=== PATIENT | male | born 1945 | race Caucasian/White ===

== ENCOUNTER → 2016-05-01 | Outpatient (CLI) | payer MEDICARE, BC ==
--- NOTE | 2016-05-02 17:49 | XR ---
EXAMINATION TYPE: XR chest 2V DATE OF EXAM: 05/01/2016 10:15 AM COMPARISON: 06/17/2015 HISTORY: 71-year-old male bronchopneumonia, cough shortness of breath and dyspnea TECHNIQUE: Frontal and lateral views FINDINGS: Heart is normal size. There is central peribronchial cuffing and some patchy medial bibasilar opaciti es. There is a moderate-sized rounded retrocardiac density. No pleural effusion. IMPRESSION: 1. Some central peribronchial cuffing could represent bronchitis or chronic asthma. 2. Patchy medial bibasilar densities suggest atelectasis or infiltrates. Follow-up can be considered. 3. Suspect a moderate-sized hiatal hernia.
== END | disposition home or self-care (01) ==
LOC: RADXRYALE 10:00
PROVIDERS: ATTEND Physician Assistant Medical
DX: J98.09 Other diseases of bronchus, not elsewhere classified (principal); J98.4 Other disorders of lung
CPT/HCPCS: 71020

== ENCOUNTER → 2016-07-13 | Outpatient (CLI) | payer MEDICARE, BC ==
[2016-07-13 10:17] LABS: Basophils % (A) 0 %; CH 31.7; CHCM 33.2; Eosinophils # (A) 0.1 k/uL (0-0.7); Eosinophils % (A) 1 %; HCT 41.2 % (39.0-53.0); HDW 2.58; HGB 14.3 gm/dL (13.0-17.5); Luc # (Auto) 0.21; Luc % (Auto) 3; Lymphocytes # (A) 2.2 k/uL (1.0-4.8); Lymphocytes % (A) 31 %; MCH 33.4 pg (25.0-35.0); MCHC 34.8 g/dL (31.0-37.0); MCV 96.2 fL (80.0-100.0); Mean Platelet Volume 7.1; Monocytes # (A) 0.6 k/uL (0-1.0); Monocytes % (A) 9 %; Neutrophils # (A) 3.9 k/uL (1.3-7.7); Neutrophils % (A) 56 %; RBC 4.28 m/uL (4.30-5.90); RDW 14.2 % (11.5-15.5); WBC (Perox) 7.37
[2016-07-13 10:34] LABS: INR 2.1 (<1.1); Prothrombin Time 20.3 sec (9.0-12.0)
[2016-07-13 10:51] LABS: ALT 32 U/L (21-72); AST 24 U/L (17-59); Alkaline Phosphatase 63 U/L (38-126); Anion Gap 11 mmol/L; Blood Urea Nitrogen 15 mg/dL (9-20); Calcium 9.5 mg/dL (8.4-10.2); Carbon Dioxide 32 mmol/L (22-30); Chloride 99 mmol/L (98-107); Cholesterol 131 mg/dL (<200); Creatine Kinase 59 U/L (55-170); Glucose 96 mg/dL (74-99); HDL Cholesterol 63 mg/dL (40-60); Magnesium 1.7 mg/dL (1.6-2.3); Non-African American GFR(MDRD) >60 (>60 ml/min/1.73 sqM); Potassium 4.4 mmol/L (3.5-5.1); Sodium 142 mmol/L (137-145); Total Bilirubin 0.8 mg/dL (0.2-1.3); Total Protein 6.8 g/dL (6.3-8.2); Triglycerides 99 mg/dL (<150)
== END | disposition home or self-care (01) ==
LOC: LABWHC1 09:28
PROVIDERS: ATTEND Physician Assistant Medical
DX: C61 Malignant neoplasm of prostate (principal); E78.2 Mixed hyperlipidemia; E55.9 Vitamin D deficiency, unspecified; K21.9 Gastro-esophageal reflux disease without esophagitis; I48.2 Chronic atrial fibrillation; I10 Essential (primary) hypertension
CPT/HCPCS: 36415; 80053; 80061; 82306; 82550; 83735; 84153; 85025; 85610

== ENCOUNTER 2016-08-07 15:38 | Inpatient (IN) | payer MEDICARE, BC ==
[2016-08-07] MEDS ORDERED: SODIUM CHLORIDE 0.9% 1,000 ML IV STA ×2 (15:50)
[2016-08-07] MEDS ORDERED: SODIUM CHLORIDE 0.9% 500 ML IV STA (15:50)
[2016-08-07] MEDS ORDERED: LEVOFLOXACIN 750MG-D5W PMX 750 MG in DEXTROSE/WATER 1 150ML.BAG IVPB STA (15:50)
[2016-08-07] MEDS ORDERED: methylPREDNISolone SOD SUCCI 125 MG/2 ML VIAL IV STA (15:50)
[2016-08-07] MEDS ORDERED: IBUPROFEN 800 MG TAB PO STA (16:19)
[2016-08-07] MEDS ORDERED: ACETAMINOPHEN TAB 500 MG TAB PO STA (16:19)
--- NOTE | 2016-08-07 16:21 | ED ---
General Adult HPI - General Chief complaint: Shortness of Breath Stated complaint: SOB-sent by Time Seen by Provider: 08/07/16 15:49 Source: patient, RN notes reviewed, old records reviewed Mode of arrival: wheelchair Limitations: no limitations - History of Present Illness Initial comments: This this is a 71-year-old male to the ER for evaluation patient's presents here for evaluation and reassurance with cough and congestion, 3 weeks of increased coughing intervention. Patient's also COPD with an x-ray history of smoking. Patient's noticed fever for the last 3 days and worsening shortness of breath. No chest pain. No travel history no sick contacts, patient has not continued to smoke continued to smoke - Related Data Home Medications Medication Instructions Recorded Confirmed Montelukast [Singulair] 10 mg PO HS 09/09/13 08/07/16 Tamsulosin [Flomax] 0.4 mg PO QAM 09/09/13 08/07/16 Furosemide 40 mg PO W/SUPPER 04/03/14 08/07/16 Spironolactone 25 mg PO BID 04/03/14 08/07/16 Cholecalciferol [Vitamin D3] 2,000 unit PO BID 06/09/15 08/07/16 cycloSPORINE [Restasis] 1 drop BOTH EYES BID 06/09/15 08/07/16 Albuterol Nebulized [Ventolin 2.5 mg INHALATION RT-Q6H PRN 08/07/16 08/07/16 Nebulized] Ascorbic Acid [Vitamin C] 1,000 mg PO DAILY 08/07/16 08/07/16 Atorvastatin Calcium [Lipitor] 40 mg PO HS 08/07/16 08/07/16 Budesonide-Formot 160-4.5 Mcg 2 puff INHALATION RT-BID 08/07/16 08/07/16 [Symbicort 160-4.5 Mcg Inhaler] Cyanocobalamin (Vitamin B-12) 3,000 mcg PO BID 08/07/16 08/07/16 [Vitamin B-12] Docusate [Colace] 100 mg PO TID 08/07/16 08/07/16 Fluticasone Nasal Rescue [Flonase 2 spr EA NOSTRIL BID 08/07/16 08/07/16 Nasal Rescue] Furosemide [Lasix] 80 mg PO QAM 08/07/16 08/07/16 Loratadine [Claritin] 10 mg PO DAILY 08/07/16 08/07/16 Magnesium Oxide [Mag-Ox] 250 mg PO BID 08/07/16 08/07/16 Metoprolol Tartrate [Lopressor] 25 mg PO BID 08/07/16 08/07/16 Pantoprazole Sodium [Protonix] 40 mg PO BID 08/07/16 08/07/16 Potassium Chloride ER [K-Dur 20] 20 meq PO BID 08/07/16 08/07/16 Tiotropium 18 Mcg/Puff [Spiriva] 1 cap INHALATION RT-HS 08/07/16 08/07/16 Warfarin [Coumadin] 2.5 mg PO SUTH 08/07/16 08/07/16 Warfarin [Coumadin] 3.75 mg PO MOTUWEFRSA 08/07/16 08/07/16 Allergies Allergy/AdvReac Type Severity Reaction Status Date / Time Zfvnuyb-Bof-Nvj Reductase Allergy Mild Rash/Hives Verified 08/07/16 16:28 Inhibitor Review of Systems ROS Statement: Those systems with pertinent positive or pertinent negative responses have been documented in the HPI. ROS Other: All systems not noted in ROS Statement are negative. Past Medical History Past Medical History: Cancer, COPD, GERD/Reflux, Hyperlipidemia, Hypertension, Osteoarthritis (OA), Prostate Disorder Additional Past Medical History / Comment(s): Prostate cancer, nephrolithiasis, COPD, obesity, GE reflux, hypertension, hyperlipidemia, osteoarthritis, atrial fibrillation with previous cardioversion, BPH, cardiomyopathy with an ejection fraction of around 35%, cor pulmonale, peripheral vascular disease with previous vascular intervention the lower extremities, carotid artery disease/ stenosis History of Any Multi-Drug Resistant Organisms: None Reported Past Surgical History: Bladder Surgery, Hernia Repair, Tonsillectomy Additional Past Surgical History / Comment(s): CARDIOVERSION,MUKESH FEMORAL BYPASS SURGERY 06/2011, MUKESH. ING. HERNIA,UMBILICAL HERNIA REPAIR 06/2011, PILONIDAL CYSTECTOMY,. ARCH/AORTOGRAM, CYSTECTOMY ALONG WITH KIDNEY STONE REMOVAL(HX STONES 3 DIFF. TIMES),LT CAROTID ENDARTECTOMY Past Anesthesia/Blood Transfusion Reactions: No Reported Reaction Past Psychological History: No Psychological Hx Reported Smoking Status: Former smoker Past Alcohol Use History: Daily Additional Past Alcohol Use History / Comment(s): QUIT SMOKING 1993, SMOKED SINCE AGE 17 Past Drug Use History: None Reported - Past Family History Mother Additional Family Medical History / Comment(s): UNKNOWN HX General Exam Limitations: no limitations General appearance: alert, in no apparent distress Head exam: Present: atraumatic, normocephalic, normal inspection Eye exam: Present: normal appearance, PERRL, EOMI. Absent: scleral icterus, conjunctival injection, periorbital swelling ENT exam: Present: normal exam, mucous membranes moist Neck exam: Present: normal inspection. Absent: tenderness, meningismus, lymphadenopathy Respiratory exam: Present: normal lung sounds bilaterally. Absent: respiratory distress, wheezes, rales, rhonchi, stridor Cardiovascular Exam: Present: regular rate, normal rhythm, normal heart sounds. Absent: systolic murmur, diastolic murmur, rubs, gallop, clicks GI/Abdominal exam: Present: soft, normal bowel sounds. Absent: distended, tenderness, guarding, rebound, rigid Extremities exam: Present: normal inspection, full ROM, normal capillary refill. Absent: tenderness, pedal edema, joint swelling, calf tenderness Back exam: Present: normal inspection Neurological exam: Present: alert, oriented X3, CN II-XII intact Psychiatric exam: Present: normal affect, normal mood Skin exam: Present: warm, dry, intact, normal color. Absent: rash Course Vital Signs 08/07/16 08/07/16 08/07/16 15:43 16:18 18:06 Temperature 100.1 F H 99.2 F 101.0 F H Pulse Rate 88 94 87 Respiratory 16 18 16 Rate Blood Pressure 120/75 135/78 101/55 O2 Sat by Pulse 92 L 95 92 L Oximetry - Reevaluation(s) Reevaluation #1: 08/07/16 18:32 Patient's shortness of breath remains despite prolonged breathing treatment EKG Findings - EKG Comments: EKG Findings:: EKG shows sinus rhythm rate of 89, ND 122, QRS 90, QTC 438 Medical Decision Making - Medical Decision Making 71 male ER for evaluation. Patient's OCR today for evaluation shortness of breath cough congestion positive fever, patient had a COPD exacerbation with hypoxia, pneumonia and Toch, patient be admitted for IV antibiotics as well as breathing treatments - Lab Data Result diagrams: 08/07/16 16:15 08/07/16 16:15 Lab Results 08/07/16 08/07/16 08/07/16 Range/Units 16:15 16:15 16:15 WBC 8.0 (3.8-10.6) k/uL RBC 3.90 L (4.30-5.90) m/uL Hgb 12.6 L (13.0-17.5) gm/dL Hct 37.6 L (39.0-53.0) % MCV 96.5 (80.0-100.0) fL MCH 32.4 (25.0-35.0) pg MCHC 33.5 (31.0-37.0) g/dL RDW 13.5 (11.5-15.5) % Plt Count 216 (150-450) k/uL Neutrophils % 72 % Lymphocytes % 12 % Monocytes % 12 % Eosinophils % 1 % Basophils % 1 % Neutrophils # 5.8 (1.3-7.7) k/uL Lymphocytes # 1.0 (1.0-4.8) k/uL Monocytes # 0.9 (0-1.0) k/uL Eosinophils # 0.0 (0-0.7) k/uL Basophils # 0.1 (0-0.2) k/uL PT (9.0-12.0) sec INR (<1.1) APTT (22.0-30.0) sec Sodium 137 (137-145) mmol/L Potassium 3.8 (3.5-5.1) mmol/L Chloride 92 L (98-107) mmol/L Carbon Dioxide 35 H (22-30) mmol/L Anion Gap 10 mmol/L BUN 16 (9-20) mg/dL Creatinine 0.80 (0.66-1.25) mg/dL Est GFR (MDRD) Af Amer >60 (>60 ml/min/1.73 sqM) Est GFR (MDRD) Non-Af >60 (>60 ml/min/1.73 sqM) Glucose 97 (74-99) mg/dL Calcium 8.9 (8.4-10.2) mg/dL Magnesium 1.5 L (1.6-2.3) mg/dL Total Bilirubin 0.9 (0.2-1.3) mg/dL AST 24 (17-59) U/L ALT 28 (21-72) U/L Alkaline Phosphatase 53 (38-126) U/L Total Creatine Kinase 94 (55-170) U/L CK-MB (CK-2) 0.7 (0.0-2.4) ng/mL CK-MB (CK-2) Rel Index 0.7 Troponin I <0.012 (0.000-0.034) ng/mL Total Protein 6.6 (6.3-8.2) g/dL Albumin 3.6 (3.5-5.0) g/dL 08/07/16 Range/Units 16:15 WBC (3.8-10.6) k/uL RBC (4.30-5.90) m/uL Hgb (13.0-17.5) gm/dL Hct (39.0-53.0) % MCV (80.0-100.0) fL MCH (25.0-35.0) pg MCHC (31.0-37.0) g/dL RDW (11.5-15.5) % Plt Count (150-450) k/uL Neutrophils % % Lymphocytes % % Monocytes % % Eosinophils % % Basophils % % Neutrophils # (1.3-7.7) k/uL Lymphocytes # (1.0-4.8) k/uL Monocytes # (0-1.0) k/uL Eosinophils # (0-0.7) k/uL Basophils # (0-0.2) k/uL PT 16.9 H (9.0-12.0) sec INR 1.7 (<1.1) APTT 29.6 (22.0-30.0) sec Sodium (137-145) mmol/L Potassium (3.5-5.1) mmol/L Chloride (98-107) mmol/L Carbon Dioxide (22-30) mmol/L Anion Gap mmol/L BUN (9-20) mg/dL Creatinine (0.66-1.25) mg/dL Est GFR (MDRD) Af Amer (>60 ml/min/1.73 sqM) Est GFR (MDRD) Non-Af (>60 ml/min/1.73 sqM) Glucose (74-99) mg/dL Calcium (8.4-10.2) mg/dL Magnesium (1.6-2.3) mg/dL Total Bilirubin (0.2-1.3) mg/dL AST (17-59) U/L ALT (21-72) U/L Alkaline Phosphatase (38-126) U/L Total Creatine Kinase (55-170) U/L CK-MB (CK-2) (0.0-2.4) ng/mL CK-MB (CK-2) Rel Index Troponin I (0.000-0.034) ng/mL Total Protein (6.3-8.2) g/dL Albumin (3.5-5.0) g/dL - Radiology Data Radiology results: report reviewed (Chest x-ray positive for pneumonia), image reviewed Disposition Clinical Impression: Acute exacerbation of chronic obstructive airways disease, Community acquired pneumonia Disposition: ADMITTED IP TO THIS HOSP Condition: Fair
[2016-08-07 16:32] LABS: Basophils # (A) 0.1 k/uL (0-0.2); Basophils % (A) 1 %; CH 32.6; Eosinophils % (A) 1 %; HCT 37.6 % (39.0-53.0); HDW 2.49; HGB 12.6 gm/dL (13.0-17.5); Luc # (Auto) 0.14; Luc % (Auto) 2; Lymphocytes % (A) 12 %; MCH 32.4 pg (25.0-35.0); MCHC 33.5 g/dL (31.0-37.0); MCV 96.5 fL (80.0-100.0); Mean Platelet Volume 7.3; Monocytes # (A) 0.9 k/uL (0-1.0); Monocytes % (A) 12 %; Neutrophils # (A) 5.8 k/uL (1.3-7.7); Neutrophils % (A) 72 %; RDW 13.5 % (11.5-15.5); WBC (Perox) 8.05
[2016-08-07 16:41] LABS: ALT 28 U/L (21-72); AST 24 U/L (17-59); Alkaline Phosphatase 53 U/L (38-126); Anion Gap 10 mmol/L; Blood Urea Nitrogen 16 mg/dL (9-20); Calcium 8.9 mg/dL (8.4-10.2); Carbon Dioxide 35 mmol/L (22-30); Chloride 92 mmol/L (98-107); Glucose 97 mg/dL (74-99); Magnesium 1.5 mg/dL (1.6-2.3); Non-African American GFR(MDRD) >60 (>60 ml/min/1.73 sqM); Potassium 3.8 mmol/L (3.5-5.1); Sodium 137 mmol/L (137-145); Total Bilirubin 0.9 mg/dL (0.2-1.3); Total Protein 6.6 g/dL (6.3-8.2)
[2016-08-07 16:47] LABS: Creatine Kinase 94 U/L (55-170); INR 1.7 (<1.1); Partial Thromboplastin Time 29.6 sec (22.0-30.0); Prothrombin Time 16.9 sec (9.0-12.0)
[2016-08-07 16:58] LABS: Creatine Kinase MB 0.7 ng/mL (0.0-2.4); Troponin I <0.012 ng/mL (0.000-0.034)
--- NOTE | 2016-08-07 16:58 | XR ---
EXAMINATION TYPE: XR chest 2V DATE OF EXAM: 08/07/2016 4:53 PM COMPARISON: Chest x-ray May 01, 2016. HISTORY: History of COPD presents with difficulty in breathing. TECHNIQUE: Frontal and lateral views of the chest are obtained. FINDINGS: There is underlying emphysematous change with more prominent bibasilar opacity felt to ref lect infiltrate and/or atelectasis. No large pleural effusion or pneumothorax seen bilaterally. The c ardiac silhouette size is within normal limits with atherosclerotic thoracic aorta. Retrocardiac opac ity consistent with moderate to large size hiatal hernia is redemonstrated. The osseous structures a re are demineralized. IMPRESSION: Chronic emphysematous change and moderate to large size hiatal hernia with bilateral low er lobe infiltrate and/or atelectasis more prominent or worse versus prior study.
[2016-08-07] MEDS ORDERED: PNEUMONIA PROTOCOL UTILIZED 1 EACH MISC PO PRN (17:28)
[2016-08-07] MEDS: SODIUM CHLORIDE 0.9% 1,000 ML IV SCH (19:11)
[2016-08-07] MEDS: IPRATROPIUM-ALBUTEROL 3 ML NEB INHALATION SCH (19:31)
[2016-08-07] MEDS ORDERED: WARFARIN 2.5 MG TAB PO SCH (21:00)
[2016-08-07] MEDS: CHOLECALCIFEROL 1,000 UNIT TAB PO SCH (21:37)
[2016-08-07] MEDS: CYANOCOBALAMIN 500 MCG TAB PO SCH (21:37)
[2016-08-07] MEDS: cycloSPORINE 0.05% OPHTH 0.4 ML DROPERETTE BOTH EYES SCH (21:37)
[2016-08-07] MEDS: PANTOPRAZOLE 40 MG TABLET PO SCH (21:38)
[2016-08-07] MEDS: MAGNESIUM OXIDE 400 MG TAB PO SCH (21:38)
[2016-08-07] MEDS: MONTELUKAST 10 MG TAB PO SCH (21:38)
[2016-08-07] MEDS: DOCUSATE 100 MG CAP PO SCH (21:40)
[2016-08-07] MEDS: METOPROLOL TARTRATE 25 MG TAB PO SCH (21:42)
[2016-08-08] MEDS: SODIUM CHLORIDE 0.9% 1,000 ML IV SCH (02:37)
[2016-08-08] MEDS: DOCUSATE 100 MG CAP PO SCH ×3 (08:28→20:32)
[2016-08-08] MEDS: PANTOPRAZOLE 40 MG TABLET PO SCH ×2 (08:28→20:31)
[2016-08-08] MEDS: CHOLECALCIFEROL 1,000 UNIT TAB PO SCH ×2 (08:29→20:31)
[2016-08-08] MEDS: CYANOCOBALAMIN 500 MCG TAB PO SCH ×2 (08:29→20:31)
[2016-08-08] MEDS: ENOXAPARIN 40 MG/0.4 ML SYRINGE SQ SCH (08:29)
[2016-08-08] MEDS: METOPROLOL TARTRATE 25 MG TAB PO SCH ×2 (08:30→20:32)
[2016-08-08] MEDS: MAGNESIUM OXIDE 400 MG TAB PO SCH ×2 (08:30→20:31)
[2016-08-08] MEDS: cycloSPORINE 0.05% OPHTH 0.4 ML DROPERETTE BOTH EYES SCH ×2 (08:31→20:31)
[2016-08-08] MEDS: IPRATROPIUM-ALBUTEROL 3 ML NEB INHALATION SCH ×4 (08:45→20:24)
[2016-08-08] MEDS: LORATADINE 10 MG TAB PO SCH (09:36)
[2016-08-08] MEDS: TAMSULOSIN 0.4 MG CAP.ER.24H PO SCH (09:36)
[2016-08-08] MEDS: POTASSIUM CHLORIDE ER 20 MEQ TAB.ER PO SCH ×4 (09:37→20:31)
[2016-08-08] MEDS: SPIRONOLACTONE 25 MG TAB PO SCH ×2 (09:59→20:31)
[2016-08-08] MEDS ORDERED: FUROSEMIDE 80 MG TAB PO SCH (10:00)
[2016-08-08 11:31] LABS: Basophils % (A) 0 %; CH 32.3; CHCM 33.5; Eosinophils % (A) 0 %; HCT 36.7 % (39.0-53.0); HDW 2.55; HGB 11.9 gm/dL (13.0-17.5); Luc # (Auto) 0.03; Luc % (Auto) 0; Lymphocytes # (A) 0.6 k/uL (1.0-4.8); Lymphocytes % (A) 8 %; MCH 31.4 pg (25.0-35.0); MCHC 32.4 g/dL (31.0-37.0); MCV 96.9 fL (80.0-100.0); Mean Platelet Volume 6.9; Monocytes # (A) 0.3 k/uL (0-1.0); Monocytes % (A) 5 %; Neutrophils # (A) 6.6 k/uL (1.3-7.7); Neutrophils % (A) 87 %; RBC 3.79 m/uL (4.30-5.90); RDW 13.4 % (11.5-15.5); WBC 7.6 k/uL (3.8-10.6)
[2016-08-08 11:41] LABS: Anion Gap 10 mmol/L; Blood Urea Nitrogen 20 mg/dL (9-20); Calcium 9.1 mg/dL (8.4-10.2); Carbon Dioxide 27 mmol/L (22-30); Chloride 100 mmol/L (98-107); Glucose 146 mg/dL (74-99); Magnesium 1.7 mg/dL (1.6-2.3); Non-African American GFR(MDRD) >60 (>60 ml/min/1.73 sqM); Potassium 3.5 mmol/L (3.5-5.1); Sodium 137 mmol/L (137-145)
[2016-08-08 11:41] LABS: INR 1.9 (<1.1); Prothrombin Time 18.8 sec (9.0-12.0)
[2016-08-08] MEDS ORDERED: Magnesium Replacement Protocol 1 EACH MISC MISCELLANE PRN (13:41)
[2016-08-08] MEDS ORDERED: Potassium Replacement Protocol 1 EACH MISC MISCELLANE PRN (13:42)
[2016-08-08] MEDS: MAGNESIUM SULFATE-D5W PMX 1 GM in DEXTROSE/WATER 1 100ML.BAG IVPB SCH ×2 (14:12→15:18)
--- NOTE | 2016-08-08 14:21 | HP ---
DATE OF ADMISSION: Patient is a 71-year-old who came in with complaints of cough, congestion. Patient is unable to bring up much and patient was having fever, chills, has been going on for about 3 days and patient was treated for pneumonia about a month ago. Patient does have history of COPD, use oxygen on as-needed basis, found to have infiltrate, although I am unable to open the chest x-ray images by myself. Patient has bilateral lower lobe infiltrate, mostly looks like atelectasis as per the reading, although patient had fever, leukocytosis. Patient is on Zosyn and levofloxacin, probably levofloxacin can be discontinued tomorrow and sputum cultures were obtained. Blood cultures were obtained. Home medications include: 1. Montelukast. 2. Tamsulosin. 3. Lasix. 4. Spironolactone. 5. Cholecalciferol. 6. Cyclosporine. 7. Ascorbic acid. 8. Atorvastatin. 9. Budesonide. 10. Formoterol. 11. Fluticasone nasal spray. 12. Lasix 80 mg oral q.a.m. 13. Loratadine. 14. Magnesium. 15. Metoprolol. 16. Pantoprazole. 17. Potassium. 18. Ipratropium. 19. Coumadin. Patient takes 2 different doses, which I am putting him a lower dose because of patient being on levofloxacin and interaction with Coumadin. I am actually going to discontinue the levofloxacin today because of its significant interaction with Coumadin. Patient will be started on steroids which also interacts with Coumadin. Patient is on Zosyn, which can interfere with the vitamin K metabolism as well. Patient earlier was started on p.o. prednisone 60 mg for his COPD. REVIEW OF SYSTEMS: RESPIRATORY: As described in HPI. Patient denied any orthopnea, PND, chest x-ray did not show any pulmonary edema. CONSTITUTIONAL: No fever, no malaise, no fatigue. HEENT: No recent visual problems or hearing problems. Denied any sore throat. CARDIOVASCULAR: No chest pain, orthopnea, PND, no palpitations, no syncope. GASTROINTESTINAL: No diarrhea, no nausea, no vomiting, no abdominal pain. Normoactive bowel sounds. NEUROLOGICAL: No headaches, no weakness, no numbness. HEMATOLOGICAL: Denies any bleeding or petechiae. GENITOURINARY: Denies any burning micturition, frequency, or urgency. MUSCULOSKELETAL/RHEUMATOLOGICAL: Denies any joint pain, swelling, or any muscle pain. ENDOCRINE: Denies any polyuria or polydipsia. The rest of the 14 point review of systems is negative. PAST MEDICAL HISTORY: Congestive heart failure, chronic systolic dysfunction, ejection fraction of around 30% in the past, gastroesophageal reflux disease, hyperlipidemia, hypertension, osteoarthritis and actually patient had normal ejection fraction as per the previous echocardiogram it was dictated. Patient's EF was 30% to 35%. It may have improved by now, benign prostatic hypertrophy, nephrolithiasis, COPD, obesity, gastroesophageal reflux disease, umbilical hernia repair. SOCIAL HISTORY: Former smoker. Quit smoking in 1993. Denied any alcohol abuse or any drug abuse. FAMILY HISTORY: Unknown. PHYSICAL EXAMINATION: VITAL SIGNS: A 24-hour T-max is 100.1. Patient is presently 96.0, pulse of 72, respiratory rate of 20, blood pressure is 106/77 , saturating at 97% on 3 L. Will cut down the oxygen to 2 L to maintain a saturation of just about 90%. GENERAL: Morbidly obese. Alert and oriented x3. LUNG EXAMINATION: Patient has diffuse bilateral expiratory wheezing appreciated. I did not appreciate any bronchophony, egophony. Decreased air entry into bilateral lung robles. HEENT: Pupils are round and equally reacting to light. EOMI. No scleral icterus. No conjunctival pallor. Normocephalic, atraumatic. No pharyngeal erythema. No thyromegaly. CARDIOVASCULAR: S1 and S2 present. No murmurs, rubs, or gallops. ABDOMEN: Soft, nontender, nondistended, normoactive bowel sounds. No palpable organomegaly. MUSCULOSKELETAL: No joint swelling or deformity. EXTREMITIES: No cyanosis, clubbing, or pedal edema. NEUROLOGICAL: Gross neurological examination did not reveal any focal deficits. SKIN: No rashes. LABORATORY DATA: Patient does not have any leukocytosis and kidney function essentially within normal limits. No other significant abnormality was appreciated and CBC and troponins are negative. Chest x-ray bilateral lower lobe infiltrates. ASSESSMENT AND PLAN: 1. Acute on chronic hypercapnic respiratory failure secondary to exacerbation with bilateral lower lobe pneumonia and patient will be treated as ( ) pneumonia with Zosyn and levofloxacin will be discontinued because of significant interaction with Coumadin. 2. History of atrial fibrillation, rate controlled at this point of time and continue with Coumadin. Repeat INR tomorrow. Will give him a lower dose of Coumadin because of systemic steroid traction. Patient was given levofloxacin which also interacts with Coumadin and also being on antibiotics. 3. History of congestive heart failure may diastolic dysfunction presently euvolemic. Patient has normal ejection fraction, recent echocardiogram, morbid obesity, peripheral neuropathy and hypertension. 4. Hyperlipidemia. 5. Peripheral vascular disease. 6. ( ) hypertrophy. For above mentioned chronic medical problems, I will just go ahead continue his home medications. Lasbull will cut it down to 40 daily.
--- NOTE | 2016-08-08 14:50 | XR ---
EXAMINATION TYPE: XR chest 2V DATE OF EXAM: 08/08/2016 1:44 PM COMPARISON: 08/07/2016 HISTORY: 71-year-old male follow-up pneumonia TECHNIQUE: Frontal and lateral views FINDINGS: Heart is upper limits of normal in size. Hyperinflation with flattening of the hemidiaphragms. Underl dianna moderate to large hiatal hernia. Patchy bibasilar opacities persist. There may be very minimal i nterval improvement in aeration. No pleural effusion. IMPRESSION: COPD with moderate to large hiatal hernia and continued bibasilar infiltrates. The infiltrates are si milar to perhaps minimally improved.
--- NOTE | 2016-08-08 15:29 | P.CNPUL ---
History of Present Illness Consult date: 08/08/16 Requesting physician: Nila Carrero Reason for consult: dyspnea Chief complaint: Shortness of breath, cough and congestion History of present illness: This is a very pleasant 71-year-old gentleman with a known history of prostate cancer, nephrolithiasis, obesity, GERD, hypertension, hyperlipidemia, atrial fibrillation anticoagulated with warfarin, cardiomyopathy with estimated ejection fraction of 35%, cor pulmonale, peripheral vascular disease, carotid stenosis. He also has a history of chronic obstructive pulmonary disease and is maintained on Spiriva, Symbicort, albuterol. He presented here to the emergency room with complaints of increasing shortness of breath, cough and congestion for 2-3 weeks' time. His chest x-ray shows evidence of chronic obstructive pulmonary disease with a moderate to large hiatal hernia and bibasilar infiltrates. He has had a T-max of 101.0. Leukocytosis. He is maintaining good O2 saturations in the upper 90s on 3 L/m per nasal cannula. Not tachycardic. No tachypnea. Hemodynamically stable. Review of Systems 14 point review of system was conducted. All negative other than as mentioned in the HPI. Past Medical History Past Medical History: Cancer, COPD, GERD/Reflux, Hyperlipidemia, Hypertension, Osteoarthritis (OA), Prostate Disorder Additional Past Medical History / Comment(s): Prostate cancer, nephrolithiasis, COPD, obesity, GE reflux, hypertension, hyperlipidemia, osteoarthritis, atrial fibrillation with previous cardioversion, BPH, cardiomyopathy with an ejection fraction of around 35%, cor pulmonale, peripheral vascular disease with previous vascular intervention the lower extremities, carotid artery disease/ stenosis, HOME 02 2-3 LITERS History of Any Multi-Drug Resistant Organisms: None Reported Past Surgical History: Bladder Surgery, Hernia Repair, Tonsillectomy Additional Past Surgical History / Comment(s): CARDIOVERSION,MUKESH FEMORAL BYPASS SURGERY 06/2011, MUKESH. ING. HERNIA,UMBILICAL HERNIA REPAIR 06/2011, PILONIDAL CYSTECTOMY,CATARACTS, COLONOSCOPY. ARCH/AORTOGRAM, CYSTECTOMY ALONG WITH KIDNEY STONE REMOVAL(HX STONES 3 DIFF. TIMES),LT CAROTID ENDARTECTOMY Past Anesthesia/Blood Transfusion Reactions: No Reported Reaction Past Psychological History: No Psychological Hx Reported Smoking Status: Former smoker Past Alcohol Use History: Daily Additional Past Alcohol Use History / Comment(s): QUIT SMOKING 1993, SMOKED SINCE AGE 17(1962). PT ADMITS TO DRINKING 4 SHOTS OF RUM PER DAY Past Drug Use History: None Reported - Past Family History Father Family Medical History: Liver Disease Mother Additional Family Medical History / Comment(s): "CARDIAC PROBLEMS" Medications and Allergies Home Medications Medication Instructions Recorded Confirmed Type Montelukast [Singulair] 10 mg PO HS 09/09/13 08/07/16 History Tamsulosin [Flomax] 0.4 mg PO QAM 09/09/13 08/07/16 History Furosemide 40 mg PO W/SUPPER 04/03/14 08/07/16 History Spironolactone 25 mg PO BID 04/03/14 08/07/16 History Cholecalciferol [Vitamin D3] 2,000 unit PO BID 06/09/15 08/07/16 History cycloSPORINE [Restasis] 1 drop BOTH EYES BID 06/09/15 08/07/16 History Albuterol Nebulized [Ventolin 2.5 mg INHALATION RT-Q6H PRN 08/07/16 08/07/16 History Nebulized] Ascorbic Acid [Vitamin C] 1,000 mg PO DAILY 08/07/16 08/07/16 History Atorvastatin Calcium [Lipitor] 40 mg PO HS 08/07/16 08/07/16 History Budesonide-Formot 160-4.5 Mcg 2 puff INHALATION RT-BID 08/07/16 08/07/16 History [Symbicort 160-4.5 Mcg Inhaler] Cyanocobalamin (Vitamin B-12) 3,000 mcg PO BID 08/07/16 08/07/16 History [Vitamin B-12] Docusate [Colace] 100 mg PO TID 08/07/16 08/07/16 History Fluticasone Nasal Baird [Flonase 2 spr EA NOSTRIL BID 08/07/16 08/07/16 History Nasal Baird] Furosemide [Lasix] 80 mg PO QAM 08/07/16 08/07/16 History Loratadine [Claritin] 10 mg PO DAILY 08/07/16 08/07/16 History Magnesium Oxide [Mag-Ox] 250 mg PO BID 08/07/16 08/07/16 History Metoprolol Tartrate [Lopressor] 25 mg PO BID 08/07/16 08/07/16 History Pantoprazole Sodium [Protonix] 40 mg PO BID 08/07/16 08/07/16 History Potassium Chloride ER [K-Dur 20] 20 meq PO BID 08/07/16 08/07/16 History Tiotropium 18 Mcg/Puff [Spiriva] 1 cap INHALATION RT-HS 08/07/16 08/07/16 History Warfarin [Coumadin] 2.5 mg PO SUTH 08/07/16 08/07/16 History Warfarin [Coumadin] 3.75 mg PO MOTUWEFRSA 08/07/16 08/07/16 History Allergies Allergy/AdvReac Type Severity Reaction Status Date / Time Lppbuvh-Xom-Jhs Reductase Allergy Mild Rash/Hives Verified 08/07/16 16:28 Inhibitor Physical Exam Vitals: Vital Signs Temp Pulse Pulse Resp BP BP Pulse Ox 08/08/16 12:46 72 08/08/16 12:25 72 08/08/16 08:56 76 08/08/16 08:45 76 97 08/08/16 08:00 20 08/08/16 07:00 97.4 F L 66 20 136/77 97 08/08/16 00:00 65 18 08/07/16 23:00 96.0 F L 65 18 103/53 96 08/07/16 20:15 97.0 F L 80 18 111/61 94 L 08/07/16 19:47 78 08/07/16 19:33 85 08/07/16 19:20 98.3 F 75 18 105/56 94 L 08/07/16 18:06 101.0 F H 87 16 101/55 92 L Intake and Output 08/08/16 08/08/16 08/08/16 06:59 14:59 22:59 Intake Total 420 Balance 420 Intake: Intake, IV Titration 100 Amount Magnesium Sulfate-D5w Pmx 100 1 gm In Dextrose/Water 1 100ml.bag @ 100 mls/hr IVPB Q[facility]H [facility] Rx#: [id number] Oral 320 Other: Voiding Method Toilet # Voids 1 3 # Bowel Movements 1 GENERAL EXAM: Alert, active, comfortable in no apparent distress. HEAD: Normocephalic. EYES: Normal reaction of pupils, equal size. NOSE: Clear with pink turbinates. THROAT: No erythema or exudates. NECK: No masses, no JVD. CHEST: No chest wall deformity. LUNGS: Equal air entry with crackles in the bilateral posterior bases, and expiratory wheeze. Diminished.. CVS: S1 and S2 normal with no audible murmurs. ABDOMEN: Soft, normal bowel sounds, no guarding or rigidity. Extremities: There is trace peripheral edema. No clubbing, no cyanosis. Peripheral pulses are intact. Results - Laboratory Findings CBC and BMP: 08/08/16 11:17 08/08/16 11:17 PT/INR, D-dimer PT 18.8 sec (9.0-12.0) H 08/08/16 11:14 INR 1.9 (<1.1) 08/08/16 11:14 Abnormal lab findings: Abnormal Labs 08/08/16 08/08/16 08/08/16 11:14 11:17 11:17 RBC 3.79 L Hgb 11.9 L Hct 36.7 L Lymphocytes # 0.6 L PT 18.8 H Glucose 146 H - Diagnostic Findings Chest x-ray: image reviewed Assessment and Plan Plan: Impression: #1 Acute exacerbation of chronic obstructive pulmonary disease secondary to suspected bilateral community-acquired pneumonia. #2 Acute on chronic hypercapnic respiratory failure secondary to above. #3 Acute on chronic hypoxic respiratory failure secondary to above. #4 Morbid obesity. #5 Atrial fibrillation, anticoagulated with warfarin. #6 Peripheral vascular disease. #7 Hypertension. #8 Hyperlipidemia. #9 Carotid stenosis. #10 Gastroesophageal reflux disease. Plan: The patient was seen and evaluated by Dr. Young. His chest x-ray and labs were reviewed. We'll continue with his current medications including bronchodilators, prednisone, antibiotics in the form of Zosyn and Levaquin. He is anticoagulated with warfarin, subtherapeutic currently on Lovenox as well. We will increase his activity as tolerated. We'll continue to follow.
[2016-08-08] MEDS: PIPERACILLIN-TAZOBACTAM 3.375 GM in DEXTROSE/WATER 1 50ML.BAG IVPB SCH ×2 (17:22→23:49)
[2016-08-08] MEDS: FUROSEMIDE 40 MG TAB PO SCH (17:22)
[2016-08-08] MEDS: WARFARIN 2.5 MG TAB PO SCH (17:22)
[2016-08-08] MEDS ORDERED: FUROSEMIDE 40 MG TAB PO SCH (17:30)
[2016-08-08] MEDS ORDERED: LEVOFLOXACIN 750MG-D5W PMX 750 MG in DEXTROSE/WATER 1 150ML.BAG IVPB SCH (18:00)
[2016-08-08] MEDS ORDERED: LEVOFLOXACIN 750 MG TAB PO SCH (18:00)
[2016-08-08] MEDS: MONTELUKAST 10 MG TAB PO SCH (20:31)
[2016-08-09] MEDS: PIPERACILLIN-TAZOBACTAM 3.375 GM in DEXTROSE/WATER 1 50ML.BAG IVPB SCH ×3 (07:56→23:18)
[2016-08-09] MEDS: IPRATROPIUM-ALBUTEROL 3 ML NEB INHALATION SCH ×4 (08:51→20:33)
[2016-08-09] MEDS: CHOLECALCIFEROL 1,000 UNIT TAB PO SCH ×2 (09:24→20:24)
[2016-08-09] MEDS: CYANOCOBALAMIN 500 MCG TAB PO SCH ×2 (09:24→20:24)
[2016-08-09] MEDS: DOCUSATE 100 MG CAP PO SCH ×3 (09:25→20:26)
[2016-08-09] MEDS: cycloSPORINE 0.05% OPHTH 0.4 ML DROPERETTE BOTH EYES SCH ×2 (09:25→20:24)
[2016-08-09] MEDS: TAMSULOSIN 0.4 MG CAP.ER.24H PO SCH (09:25)
[2016-08-09] MEDS: predniSONE 20 MG TAB PO SCH (09:25)
[2016-08-09] MEDS: PANTOPRAZOLE 40 MG TABLET PO SCH ×2 (09:25→20:25)
[2016-08-09] MEDS: SPIRONOLACTONE 25 MG TAB PO SCH ×2 (09:25→20:25)
[2016-08-09] MEDS: ENOXAPARIN 40 MG/0.4 ML SYRINGE SQ SCH (09:25)
[2016-08-09] MEDS: MAGNESIUM OXIDE 400 MG TAB PO SCH ×2 (09:26→20:24)
[2016-08-09] MEDS: LORATADINE 10 MG TAB PO SCH (09:26)
[2016-08-09] MEDS: POTASSIUM CHLORIDE ER 20 MEQ TAB.ER PO SCH ×2 (09:26→20:25)
[2016-08-09] MEDS: METOPROLOL TARTRATE 25 MG TAB PO SCH ×2 (09:26→20:25)
[2016-08-09 09:32] LABS: CHCM 32.7; HCT 36.7 % (39.0-53.0); HDW 2.62; HGB 12.1 gm/dL (13.0-17.5); MCH 32.3 pg (25.0-35.0); MCHC 32.8 g/dL (31.0-37.0); MCV 98.3 fL (80.0-100.0); Mean Platelet Volume 6.7; RBC 3.74 m/uL (4.30-5.90); RDW 13.4 % (11.5-15.5); WBC 7.4 k/uL (3.8-10.6)
[2016-08-09 09:37] LABS: INR 2.2 (<1.1)
[2016-08-09 09:39] LABS: Anion Gap 10 mmol/L; Blood Urea Nitrogen 18 mg/dL (9-20); Calcium 9.6 mg/dL (8.4-10.2); Carbon Dioxide 34 mmol/L (22-30); Chloride 98 mmol/L (98-107); Glucose 116 mg/dL (74-99); Magnesium 1.7 mg/dL (1.6-2.3); Non-African American GFR(MDRD) >60 (>60 ml/min/1.73 sqM); Potassium 3.8 mmol/L (3.5-5.1); Sodium 142 mmol/L (137-145)
--- NOTE | 2016-08-09 14:15 | P.PN ---
Subjective This is a very pleasant 71-year-old gentleman with a known history of prostate cancer, nephrolithiasis, obesity, GERD, hypertension, hyperlipidemia, atrial fibrillation anticoagulated with warfarin, cardiomyopathy with estimated ejection fraction of 35%, cor pulmonale, peripheral vascular disease, carotid stenosis. He also has a history of chronic obstructive pulmonary disease and is maintained on Spiriva, Symbicort, albuterol. He presented here to the emergency room with complaints of increasing shortness of breath, cough and congestion for 2-3 weeks' time. His chest x-ray shows evidence of chronic obstructive pulmonary disease with a moderate to large hiatal hernia and bibasilar infiltrates. He has had a T-max of 101.0. Leukocytosis. He is maintaining good O2 saturations in the upper 90s on 3 L/m per nasal cannula. Not tachycardic. No tachypnea. Hemodynamically stable. The patient was seen again today 08/09/2016 in follow-up on the regular medical floor. He is awake and alert in no acute distress. He is sitting up in the chair at the bedside. He does have a continued productive cough of yellow sputum. No chills or night sweats. He is dyspneic on minimal exertion. Continue good O2 saturations in the mid 90s on 2 L a minute per nasal cannula. He remains afebrile. Hemodynamically stable.. Culture is pending. Cultures reveal no growth to date. Objective - Vital Signs Vital signs: Vital Signs Temp 97.1 F L 08/09/16 07:00 Pulse 88 08/09/16 13:36 Resp 18 08/09/16 08:00 BP 107/65 08/09/16 07:00 Pulse Ox 95 08/09/16 08:53 Intake & Output 08/08/16 08/09/16 08/09/16 18:59 06:59 18:59 Intake Total 520 400 150 Balance 520 400 150 Weight 72.121 kg Intake: IV 50 Piperacillin-Tazobactam 3 50 .375 gm In Dextrose/Water 1 50ml.bag @ 12.5 mls/hr IVPB Q8HR [facility] Rx#: [id number] Intake, IV Titration 200 Amount Magnesium Sulfate-D5w Pmx 200 1 gm In Dextrose/Water 1 100ml.bag @ 100 mls/hr IVPB Q1H [facility] Rx#: [id number] Oral 320 400 100 Other: Voiding Method Toilet Toilet Toilet # Voids 3 1 # Bowel Movements 1 - Exam GENERAL EXAM: Alert, active, comfortable in no apparent distress. HEAD: Normocephalic. EYES: Normal reaction of pupils, equal size. NOSE: Clear with pink turbinates. THROAT: No erythema or exudates. NECK: No masses, no JVD. CHEST: No chest wall deformity. LUNGS: Equal air entry with crackles in the bilateral posterior bases, and expiratory wheeze. Diminished.. CVS: S1 and S2 normal with no audible murmurs. ABDOMEN: Soft, normal bowel sounds, no guarding or rigidity. Extremities: There is trace peripheral edema. No clubbing, no cyanosis. Peripheral pulses are intact. - Labs CBC & Chem 7: 08/09/16 08:42 08/09/16 08:42 Labs: Abnormal Lab Results - Last 24 Hours (Table) 08/09/16 08/09/16 08/09/16 Range/Units 08:42 08:42 08:42 RBC 3.74 L (4.30-5.90) m/uL Hgb 12.1 L (13.0-17.5) gm/dL Hct 36.7 L (39.0-53.0) % PT 21.0 H (9.0-12.0) sec Carbon Dioxide 34 H (22-30) mmol/L Glucose 116 H (74-99) mg/dL Microbiology - Last 24 Hours (Table) 08/08/16 12:40 Gram Stain - Preliminary Sputum Assessment and Plan Plan: Impression: #1 Acute exacerbation of chronic obstructive pulmonary disease secondary to suspected bilateral community-acquired pneumonia. #2 Acute on chronic hypercapnic respiratory failure secondary to above. #3 Acute on chronic hypoxic respiratory failure secondary to above. #4 Morbid obesity. #5 Atrial fibrillation, anticoagulated with warfarin. Therapeutic. #6 Peripheral vascular disease. #7 Hypertension. #8 Hyperlipidemia. #9 Carotid stenosis. #10 Gastroesophageal reflux disease. Plan: The patient was seen and evaluated by Dr. Young. We'll continue with his current medications including bronchodilators, prednisone, antibiotics in the form of Zosyn. We will increase his activity as tolerated. We'll repeat his chest x-ray in a.m. We'll continue to follow.
[2016-08-09] MEDS ORDERED: Magnesium Replacement Protocol 1 EACH MISC MISCELLANE PRN (17:25)
--- NOTE | 2016-08-09 17:39 | P.PN ---
Subjective Date of service 08/09/2016 progress note being dictated for Dr. Lucio. Interval history: This a 71-year-old gentleman admitted with bilateral lower lobe pneumonia, respiratory failure and multiple other medical issues.sitting up in chair, maintained on nebulized bronchodilators, steroids, Zosyn. feels breathing is mildly worse than yesterday, productive cough with pale yellow sputum.complains of increased shortness of breath with minimal exertion.currently maintaining O2 sat of 93% on 3 L nasal cannula.urine culture pending, blood cultures currently negative. Afebrile, normal WBC.INR 2.2. Objective - Vital Signs Vital signs: Vital Signs Temp 97.1 F L 08/09/16 07:00 Pulse 61 08/09/16 15:17 Resp 18 08/09/16 15:17 BP 107/65 08/09/16 07:00 Pulse Ox 95 08/09/16 08:53 Intake & Output 08/08/16 08/09/16 08/09/16 18:59 06:59 18:59 Intake Total 520 400 150 Balance 520 400 150 Weight 72.121 kg Intake: IV 50 Piperacillin-Tazobactam 3 50 .375 gm In Dextrose/Water 1 50ml.bag @ 12.5 mls/hr IVPB Q8HR [facility] Rx#: [id number] Intake, IV Titration 200 Amount Magnesium Sulfate-D5w Pmx 200 1 gm In Dextrose/Water 1 100ml.bag @ 100 mls/hr IVPB Q1H [facility] Rx#: [id number] Oral 320 400 100 Other: Voiding Method Toilet Toilet Toilet # Voids 3 1 # Bowel Movements 1 - Exam PHYSICAL EXAM: VITAL SIGNS: [as above] GENERAL: [sitting up in chair, no acute distress] HEENT: [Pupils equal conjunctiva normal.no conjunctival pallor.] NECK: [Supple, no JVD] RESPIRATORY EFFORT:[mildly increased] LUNGS: [lungs diminished with fine bibasilar crackles, fine expiratory wheeze] CARDIOVASCULAR[regular S1 and S2 no murmurs rubs or gallops, trace edema-more so on the right lower extremity-improving] GI: [Abdomen soft, nontender, positive bowel sounds.] PSYCH: [Alert and oriented -3, mood and affect normal.] NEURO: no focal deficits, moves all 4 extremities, strength and sensation grossly intact. - Labs CBC & Chem 7: 08/09/16 08:42 08/09/16 08:42 Labs: Abnormal Lab Results - Last 24 Hours (Table) 08/09/16 08/09/16 08/09/16 Range/Units 08:42 08:42 08:42 RBC 3.74 L (4.30-5.90) m/uL Hgb 12.1 L (13.0-17.5) gm/dL Hct 36.7 L (39.0-53.0) % PT 21.0 H (9.0-12.0) sec Carbon Dioxide 34 H (22-30) mmol/L Glucose 116 H (74-99) mg/dL Microbiology - Last 24 Hours (Table) 08/08/16 12:40 Gram Stain - Preliminary Sputum Assessment and Plan Plan: 1. acute on chronic hypoxic,hypercapnic respiratory failure secondary to acute COPD exacerbation with bilateral lower lobe pneumonia].wears 2-3 L nasal cannula at home. 2. [chronic persistent atrial fibrillation, rate controlled]. 3. [history of CHF,maybe diastolic dysfunction,no acute exacerbation,currently euvolemic 4. [hyperlipidemia]. 5. [peripheral vascular disease]. 6. [Coumadin monitoring]. 7. [gastroesophageal reflux disease]. 8. Hypertension 9. Concentric left ventricular hypertrophy plan: continue on current medication regime ,monitoring and symptomatic treatment.maintain nebulized bronchodilators, steroids, Zosyn. Follow closely with pulmonary.further recommendations to follow. The impression and plan of care has been dictated as directed. : I performed a H&P examination of this patient and discussed the same with the dictator. I agree with the dictator's note. Any additional findings/opinions/ etc. will be noted.
[2016-08-09] MEDS: WARFARIN 2.5 MG TAB PO SCH (17:50)
[2016-08-09] MEDS: FUROSEMIDE 40 MG TAB PO SCH (17:51)
[2016-08-09] MEDS: MONTELUKAST 10 MG TAB PO SCH (20:25)
[2016-08-09] MEDS ORDERED: ZOLPIDEM 5 MG TAB PO SCH (21:00)
[2016-08-10] MEDS: IPRATROPIUM-ALBUTEROL 3 ML NEB INHALATION SCH ×3 (08:26→15:04)
[2016-08-10 09:13] LABS: INR 2.1 (<1.1); Prothrombin Time 20.1 sec (9.0-12.0)
[2016-08-10] MEDS: PIPERACILLIN-TAZOBACTAM 3.375 GM in DEXTROSE/WATER 1 50ML.BAG IVPB SCH ×2 (09:14→15:53)
[2016-08-10] MEDS: ENOXAPARIN 40 MG/0.4 ML SYRINGE SQ SCH (09:15)
[2016-08-10] MEDS: CYANOCOBALAMIN 500 MCG TAB PO SCH (09:15)
[2016-08-10] MEDS: CHOLECALCIFEROL 1,000 UNIT TAB PO SCH (09:15)
[2016-08-10] MEDS: MAGNESIUM OXIDE 400 MG TAB PO SCH (09:15)
[2016-08-10] MEDS: predniSONE 20 MG TAB PO SCH (09:16)
[2016-08-10] MEDS: POTASSIUM CHLORIDE ER 20 MEQ TAB.ER PO SCH (09:16)
[2016-08-10] MEDS: SPIRONOLACTONE 25 MG TAB PO SCH (09:16)
[2016-08-10] MEDS: METOPROLOL TARTRATE 25 MG TAB PO SCH (09:16)
[2016-08-10] MEDS: DOCUSATE 100 MG CAP PO SCH ×2 (09:16→15:53)
[2016-08-10] MEDS: TAMSULOSIN 0.4 MG CAP.ER.24H PO SCH (09:17)
[2016-08-10] MEDS: PANTOPRAZOLE 40 MG TABLET PO SCH (09:17)
[2016-08-10] MEDS: cycloSPORINE 0.05% OPHTH 0.4 ML DROPERETTE BOTH EYES SCH (09:17)
[2016-08-10] MEDS: LORATADINE 10 MG TAB PO SCH (09:17)
--- NOTE | 2016-08-10 13:53 | P.PN ---
Subjective This is a very pleasant 71-year-old gentleman with a known history of prostate cancer, nephrolithiasis, obesity, GERD, hypertension, hyperlipidemia, atrial fibrillation anticoagulated with warfarin, cardiomyopathy with estimated ejection fraction of 35%, cor pulmonale, peripheral vascular disease, carotid stenosis. He also has a history of chronic obstructive pulmonary disease and is maintained on Spiriva, Symbicort, albuterol. He presented here to the emergency room with complaints of increasing shortness of breath, cough and congestion for 2-3 weeks' time. His chest x-ray shows evidence of chronic obstructive pulmonary disease with a moderate to large hiatal hernia and bibasilar infiltrates. He has had a T-max of 101.0. Leukocytosis. He is maintaining good O2 saturations in the upper 90s on 3 L/m per nasal cannula. Not tachycardic. No tachypnea. Hemodynamically stable. The patient was seen again today 08/09/2016 in follow-up on the regular medical floor. He is awake and alert in no acute distress. He is sitting up in the chair at the bedside. He does have a continued productive cough of yellow sputum. No chills or night sweats. He is dyspneic on minimal exertion. Continue good O2 saturations in the mid 90s on 2 L a minute per nasal cannula. He remains afebrile. Hemodynamically stable.. Culture is pending. Cultures reveal no growth to date. The patient is seen again today 08/10/2016 in follow-up on the regular medical floor. He is currently sitting up in chair at the bedside. He is awake and alert in no acute distress. He continues with a loose nonproductive cough. No chills or night sweats. He remains afebrile. No leukocytosis. Maintaining good O2 saturations in the high 90s on 3 L/m per nasal cannula. His chest x-ray is pending. Objective - Vital Signs Vital signs: Vital Signs Temp 96.7 F L 08/10/16 07:00 Pulse 60 08/10/16 11:45 Resp 19 08/10/16 07:00 BP 117/60 08/10/16 07:00 Pulse Ox 97 08/10/16 08:27 Intake & Output 08/09/16 08/10/16 08/10/16 18:59 06:59 18:59 Intake Total 150 Balance 150 Intake: IV 50 Piperacillin-Tazobactam 3 50 .375 gm In Dextrose/Water 1 50ml.bag @ 12.5 mls/hr IVPB Q8HR [facility] Rx#: [id number] Oral 100 Other: Voiding Method Toilet Toilet # Voids 3 1 2 # Bowel Movements 0 - Exam GENERAL EXAM: Alert, active, comfortable in no apparent distress. HEAD: Normocephalic. EYES: Normal reaction of pupils, equal size. NOSE: Clear with pink turbinates. THROAT: No erythema or exudates. NECK: No masses, no JVD. CHEST: No chest wall deformity. LUNGS: Equal air entry with crackles in the bilateral posterior bases, and expiratory wheeze. Diminished.. CVS: S1 and S2 normal with no audible murmurs. ABDOMEN: Soft, normal bowel sounds, no guarding or rigidity. Extremities: There is trace peripheral edema. No clubbing, no cyanosis. Peripheral pulses are intact. - Labs CBC & Chem 7: 08/09/16 08:42 08/09/16 08:42 Labs: Abnormal Lab Results - Last 24 Hours (Table) 08/10/16 Range/Units 08:22 PT 20.1 H (9.0-12.0) sec Microbiology - Last 24 Hours (Table) 08/08/16 12:40 Gram Stain - Final Sputum Sputum Culture - Final Assessment and Plan Plan: Impression: #1 Acute exacerbation of chronic obstructive pulmonary disease secondary to suspected bilateral community-acquired pneumonia. #2 Acute on chronic hypercapnic respiratory failure secondary to above. #3 Acute on chronic hypoxic respiratory failure secondary to above. #4 Morbid obesity. #5 Atrial fibrillation, anticoagulated with warfarin. Therapeutic. #6 Peripheral vascular disease. #7 Hypertension. #8 Hyperlipidemia. #9 Carotid stenosis. #10 Gastroesophageal reflux disease. Plan: The patient was seen and evaluated by Dr. Young. The patient could be discharged home from the pulmonary standpoint and follow up in our office next week and we could repeat a chest x-ray then. He'll continue his course of antibiotics, prednisone taper and usual pulmonary medications. He is however encouraged to call sooner with any recurrence of symptoms or other questions or concerns.
[2016-08-10 15:35] VITALS: BP 129/73; PULSE 64; RESP 17; TEMP 97
--- NOTE | 2016-08-10 15:59 | XR ---
EXAMINATION TYPE: XR chest 2V DATE OF EXAM: 08/10/2016 2:40 PM COMPARISON: Prior chest x-ray second of August 2016 HISTORY: Follow-up pneumonia TECHNIQUE: Frontal and lateral views of the chest are obtained. FINDINGS: Findings are similar. Patchy basilar density is again noted. There is a sizable hiatal her tamika or fixed intrathoracic stomach. Prominent lung volumes compatible with underlying COPD. Cardiac m ediastinal silhouette, pulmonary vascularity and teri are not significantly changed. No evident pneum othorax or sizable effusion. IMPRESSION: Similar findings to prior exam. COPD, hiatal hernia. Correlate for possible basilar atel ectasis versus pneumonia.
--- NOTE | 2016-08-10 16:51 | P.DS ---
Providers Date of admission: 08/07/16 17:28 Expected date of discharge: 08/10/16 Attending physician: Nila Lucio Consults: Dr. Young Primary care physician: Karl Self [facility] [facility] Course: Final Diagnoses: 1. Acute on chronic hypoxic,hypercapnic respiratory failure secondary to acute COPD exacerbation with bilateral lower lobe pneumonia].wears 2 L nasal cannula at home. 2. [chronic persistent atrial fibrillation, rate controlled]. 3. [history of CHF,maybe diastolic dysfunction,no acute exacerbation,currently euvolemic 4. [hyperlipidemia]. 5. [peripheral vascular disease]. 6. [Coumadin monitoring]. 7. [gastroesophageal reflux disease]. 8. Hypertension 9. Concentric left ventricular hypertrophy Hospital course:This is a 71-year-old gentleman admitted with bilateral lower lobe pneumonia, respiratory failure and multiple other medical issues. Chest x- ray reporting COPD, suggestive of bibasilar pneumonia.Maintained on nebulized bronchodilators, steroids, Zosyn. Evaluated by Dr. Dalal, pulmonary. Ambulating in hallway on 2 L nasal cannula maintaining O2 sats of 90%. Significant clinical improvement. Patient is cleared for discharge by pulmonary. Patient is being discharged home in a stable condition with guarded prognosis. Microbiology 08/08/16 12:40 Sputum Gram Stain - Final 08/08/16 12:40 Sputum Sputum Culture - Final 08/07/16 16:15 Blood Blood Culture - Preliminary No Growth after 48 hours Patient Condition at Discharge: Stable Plan - Discharge Summary New Discharge Prescriptions: Amoxic-Pot Clav 875-125Mg [Augmentin 875-125] 1 tab PO Q12HR #14 tablet Discharge Medication List Montelukast [Singulair] 10 mg PO HS 09/09/13 [History] Tamsulosin [Flomax] 0.4 mg PO QAM 09/09/13 [History] Furosemide 40 mg PO W/SUPPER 04/03/14 [History] Spironolactone 25 mg PO BID 04/03/14 [History] Cholecalciferol [Vitamin D3] 2,000 unit PO BID 06/09/15 [History] cycloSPORINE [Restasis] 1 drop BOTH EYES BID 06/09/15 [History] Ascorbic Acid [Vitamin C] 1,000 mg PO DAILY 08/07/16 [History] Atorvastatin Calcium [Lipitor] 40 mg PO HS 08/07/16 [History] Budesonide-Formot 160-4.5 Mcg [Symbicort 160-4.5 Mcg Inhaler] 2 puff INHALATION RT-BID 08/07/16 [History] Cyanocobalamin (Vitamin B-12) [Vitamin B-12] 3,000 mcg PO BID 08/07/16 [History] Docusate [Colace] 100 mg PO TID 08/07/16 [History] Fluticasone Nasal [place] [Flonase Nasal [place]] 2 spr EA NOSTRIL BID 08/07/16 [ History] Furosemide [Lasix] 80 mg PO QAM 08/07/16 [History] Loratadine [Claritin] 10 mg PO DAILY 08/07/16 [History] Magnesium Oxide [Mag-Ox] 250 mg PO BID 08/07/16 [History] Metoprolol Tartrate [Lopressor] 25 mg PO BID 08/07/16 [History] Pantoprazole Sodium [Protonix] 40 mg PO BID 08/07/16 [History] Potassium Chloride ER [K-Dur 20] 20 meq PO BID 08/07/16 [History] Tiotropium 18 Mcg/Puff [Spiriva] 1 cap INHALATION RT-HS 08/07/16 [History] Albuterol Nebulized [Ventolin Nebulized] 2.5 mg INHALATION QID #0 08/10/16 [Rx] Amoxic-Pot Clav 875-125Mg [Augmentin 875-125] 1 tab PO Q12HR #14 tablet [Rx] Warfarin [Coumadin] 2.5 mg PO DAILY #0 08/10/16 [Rx] Follow up Appointment(s)/Referral(s): Karl Self DO [Primary Care Provider] - 3 Days Jaclyn Young MD [STAFF PHYSICIAN] - 1 Week Ambulatory/Diagnostic Orders: Prothrombin Time INR [LAB.AMB] Time Frame: 08/14/16, Location: Determined By Patient Patient Instructions/Handouts: COPD (Chronic Obstructive Pulmonary Disease) (DC ) Activity/Diet/Wound Care/Special Instructions: 2 L nasal cannula O2 Cardiac diet.
[2016-08-10] MEDS ORDERED: WARFARIN 2.5 MG TAB PO SCH (18:00)
== END 2016-08-10 17:43 | disposition home or self-care (01) | DRG 190 ==
LOC: EC 15:38 → 4MS4W 17:28
PROVIDERS: ADMIT Hospitalist; ATTEND Hospitalist
DX: J44.0 Chronic obstructive pulmonary disease with (acute) lower respiratory infection (principal); J18.9 Pneumonia, unspecified organism; J96.21 Acute and chronic respiratory failure with hypoxia; J96.22 Acute and chronic respiratory failure with hypercapnia; I42.9 Cardiomyopathy, unspecified; I48.1 Persistent atrial fibrillation; I50.32 Chronic diastolic (congestive) heart failure; I11.0 Hypertensive heart disease with heart failure; I27.81 Cor pulmonale (chronic); G62.9 Polyneuropathy, unspecified; I65.29 Occlusion and stenosis of unspecified carotid artery; J44.1 Chronic obstructive pulmonary disease with (acute) exacerbation; K21.9 Gastro-esophageal reflux disease without esophagitis; E78.5 Hyperlipidemia, unspecified; K44.9 Diaphragmatic hernia without obstruction or gangrene; M19.91 Primary osteoarthritis, unspecified site; N40.0 Benign prostatic hyperplasia without lower urinary tract symptoms; I73.9 Peripheral vascular disease, unspecified; Z99.81 Dependence on supplemental oxygen; Z87.891 Personal history of nicotine dependence; Z85.46 Personal history of malignant neoplasm of prostate; Z98.42 Cataract extraction status, left eye; Z87.442 Personal history of urinary calculi; Z98.41 Cataract extraction status, right eye; Z79.01 Long term (current) use of anticoagulants; Z79.51 Long term (current) use of inhaled steroids; Z79.899 Other long term (current) drug therapy
CPT/HCPCS: 36415; 71020; 80048; 80053; 82550; 82553; 83605; 83735; 84484; 85025; 85027; 85610; 85730; 87040; 87070; 87205; 93005; 94640; 94760

== ENCOUNTER → 2016-08-07 | Outpatient (CLI) | payer MEDICARE, BC ==
--- NOTE | 2016-08-08 08:09 | XR ---
EXAMINATION TYPE: XR chest 2V DATE OF EXAM: 08/07/2016 2:26 PM COMPARISON: 05/01/2016 HISTORY: 71-year-old male with shortness of breath, cough for 2 weeks TECHNIQUE: Frontal and lateral views FINDINGS: Heart is upper limits of normal in size. Atherosclerotic arch calcifications. There is some peribronc hial cuffing noted. Rounded retrocardiac opacity suggests a moderate-sized hiatal hernia. Patchy infi ltrates at the lung bases increased from 05/01/2016. IMPRESSION: Bibasilar areas of patchy infiltrates worsened from 05/01/2016. Correlate for possible etiologies incl uding infectious or aspiration pneumonitis. At least a moderate-sized hiatal hernia.
== END | disposition home or self-care (01) ==
LOC: RADXRYALE 14:14
PROVIDERS: ATTEND Physician Assistant Medical
DX: R06.02 Shortness of breath (principal); J44.9 Chronic obstructive pulmonary disease, unspecified
CPT/HCPCS: 71020

== ENCOUNTER → 2017-01-24 | Outpatient (CLI) | payer MEDICARE, BC ==
--- NOTE | 2017-01-24 16:15 | XR ---
EXAMINATION TYPE: XR lumbosacral spine min 4V DATE OF EXAM: 01/24/2017 COMPARISON: NONE HISTORY: Back pain TECHNIQUE: 5 view lumbar spine FINDINGS: Vascular calcification is present. There appears to be a 1.3 cm inferior pole left renal st one. There 5 lumbar vertebral bodies. The pedicles are intact. No spondylolytic defects are evident. Poste rior disc space narrowing is present L5-S1. Milder posterior disc space narrowing is present L4-5 to mild degree L3-4. Vertebral body heights appears preserved. IMPRESSION: 1. Degenerative disc changes lumbar spine. 2. Inferior pole left renal stone
== END | disposition home or self-care (01) ==
LOC: RADXRYALE 14:19
PROVIDERS: ATTEND Physician Assistant Medical
DX: M51.36 Other intervertebral disc degeneration, lumbar region (principal)
CPT/HCPCS: 72110

== ENCOUNTER 2017-05-08 10:10 | Day surgery (SDC) | payer MEDICARE, BC ==
[2017-05-02 12:14] VITALS: BMI 35.0
[2017-05-08 10:32] VITALS: TEMP 97.5
[2017-05-08] MEDS ORDERED: SODIUM CHLORIDE 0.9% 500 ML IV ONE (10:35)
[2017-05-08 10:54] LABS: INR 2.2 (<1.2); Prothrombin Time 19.9 sec (9.0-12.0)
[2017-05-08] MEDS ORDERED: MIDAZOLAM 2 MG/2 ML VIAL ONE (11:14)
[2017-05-08] MEDS ORDERED: fentaNYL (PF) 50 MCG/ML 2 ML AMP ONE (11:15)
[2017-05-08] MEDS ORDERED: BENZOCAINE SPRAY 1 SPRAY CAN MUCOUS MEM ONE ×2 (11:26→11:30)
[2017-05-08] MEDS ORDERED: MIDAZOLAM 2 MG/2 ML VIAL IV ONE (11:31)
[2017-05-08] MEDS ORDERED: fentaNYL (PF) 50 MCG/ML 2 ML AMP IV ONE (11:31)
[2017-05-08] MEDS ORDERED: SODIUM CHLORIDE 0.9% 1,000 ML IV SCH (12:00)
[2017-05-08 12:42] VITALS: BP 109/70; PULSE 73; RESP 20
--- NOTE | 2017-05-10 09:39 | P.TEE ---
Indications for Procedure(s): Assessment of aortic stenosis Date of Procedure: 05/08/17 Preoperative Diagnosis: Severe aortic stenosis Postoperative Diagnosis: The same Procedure(s) Performed: BRAYDEN Description of Procedure(s): INDICATION: This is a 72-year-old gentleman with history of for severe COPD, hypertension and also no aortic stenosis. Recent echocardiogram was suggestive of possible severe aortic stenosis. Patient is advised to have BRAYDEN examination for further evaluation CONSENT:. Informed consent was obtained from the patient PROCEDURE: Patient was brought to the lab in a fasting state. He was prepped and draped in the usual fashion. The throat was sprayed with Hurricaine. Patient was given 21/2 mg of Versed and 50 g of fentanyl for conscious sedation. A lubricated Omni probe was introduced into the oropharynx and was advanced into the esophagus. Patient tolerated the procedure well. These were obtained mostly from the esophagus. There was difficulty advancing the probe into the stomach FINDINGS:. The aortic valve is heavily calcified but appears to be tricuspid. The opening excursion is restricted with valve area about 0.8 2.9. A peak gradient of about 54 with mean of 28 was obtained. Left ankle function appear to be preserved. Left atrial lead appendage is free of any clot. Interatrial atrium is intact without any shunt or PFO. The mitral valve appeared to be normal with trace regurgitation. There is mitral calcification. The aortic root appeared to be mildly dilated. The aorta was not visualized IMPRESSION: #1. Severe calcific aortic stenosis. #2. No clot in left atrial appendage. #3. No PFO #4. Left ventricular function is preserved PLAN: Patient will be monitored for the next several hours. He'll be discharged home, If stable. Follow-up in the office in one week. Patient will be scheduled for cardiac cath and possible aortic valve replacement in the near future.
== END 2017-05-08 12:48 | disposition home or self-care (01) ==
LOC: CATHCVL 10:10
PROVIDERS: ATTEND Internal Medicine Cardiovascular Disease
DX: I35.0 Nonrheumatic aortic (valve) stenosis (principal); I11.0 Hypertensive heart disease with heart failure; I50.32 Chronic diastolic (congestive) heart failure; I42.9 Cardiomyopathy, unspecified; I48.2 Chronic atrial fibrillation; I34.0 Nonrheumatic mitral (valve) insufficiency; J44.9 Chronic obstructive pulmonary disease, unspecified; E78.5 Hyperlipidemia, unspecified; E78.00 Pure hypercholesterolemia, unspecified; Z79.01 Long term (current) use of anticoagulants; Z87.891 Personal history of nicotine dependence; Z79.51 Long term (current) use of inhaled steroids; Z79.899 Other long term (current) drug therapy
CPT/HCPCS: 93312; 93320; 93325; 85610; J2250; J3010

== ENCOUNTER 2017-06-06 10:48 | Day surgery (SDC) | payer MEDICARE, BC ==
[~2017-06-06 10:48] MED LIST: ALPRAZolam 0.25 MG TAB PO PRN; ALPRAZolam 0.5 MG TAB PO PRN; ASPIRIN 325 MG TAB PO STA; NITROGLYCERIN SL TABS 0.4 MG TAB SUBLINGUAL PRN; SODIUM CHLORIDE 0.9% 1,000 ML in EMPTY BAG 1 BAG IV ONE
[2017-06-06] MEDS ORDERED: MIDAZOLAM 2 MG/2 ML VIAL ONE (11:25)
[2017-06-06] MEDS ORDERED: fentaNYL (PF) 50 MCG/ML 2 ML AMP ONE (11:25)
[2017-06-06 11:48] LABS: INR 1.2 (<1.2); Prothrombin Time 11.4 sec (9.0-12.0)
[2017-06-06] MEDS ORDERED: LIDOCAINE 2% INJ 20 MG/ML (20 ML MDV) ONE (11:53)
[2017-06-06] MEDS: fentaNYL (PF) 50 MCG/ML 2 ML AMP IV ONE ×2 (12:00→12:14)
[2017-06-06] MEDS: MIDAZOLAM 2 MG/2 ML VIAL IV ONE ×2 (12:00→13:35)
[2017-06-06] MEDS ORDERED: LIDOCAINE 2% INJ 20 MG/ML SQ ONE (12:05)
[2017-06-06] MEDS ORDERED: SODIUM CHLORIDE 0.9% 1,000 ML IV ONE (12:06)
[2017-06-06 12:27] LABS: O2 Sat Blood Gas 65.5 %
[2017-06-06 12:29] LABS: O2 Sat Blood Gas 61.9 %
[2017-06-06] MEDS ORDERED: fentaNYL (PF) 50 MCG/ML 2 ML AMP IVP ONE (12:54)
--- NOTE | 2017-06-06 13:25 | P.PCN ---
Date of Procedure: 06/06/17 Preoperative Diagnosis: aortic stenosis, shortness of breath, hypertension and hyperlipidemia. Postoperative Diagnosis: Moderate to severe aortic stenosis, critical coronary artery disease involving the right. Moderate disease in the circumflex Description of Procedure: HISTORY: This is a 72-year-old gentleman with history of chronic atrial fibrillation, diastolic CHF and also aortic stenosis who was recently evaluated for symptoms of increasing shortness of breath. Transthoracic echo and BRAYDEN examination were consistent with severe aortic stenosis. Patient is advised to have cardiac catheterization for definitive diagnosis. CONSENT:I have discussed the risks, benefits and alternative therapies for the above-mentioned procedure and for both sedation/analgesia as well as necessary blood product administration, if indicated, as they pertain to this patient. The patient has indicated understanding and acceptance of the risks and procedures discussed. PROCEDURE: Patient was brought to the lab in a fasting state. Patient was given some IV sedation. RIGHT HEART CATHETERIZATION: The right groin is infiltrated with lidocaine and right femoral vein was entered using Seldinger technique. Right heart catheterization was performed using a [place] catheter. Patient tolerated the procedure well. LEFT HEART CATHETERIZATION: The right femoral artery was entered using Seldinger technique. A 6-Maltese catheter was left in place and selective coronary arteriography was performed. Patient tolerated the procedure well. No immediate complications were noted and patient was transferred to [facility] in a stable condition. Patient is found to have significant disease involving the right coronary artery. The aortic stenosis appeared to be moderate to severe. Waiting for Dr. LLUVIA Dodd to evaluate patient for possible stent placement of the RCA. Conscious Sedation: Versed 1mg Fentanyl 100 g in boluses. Duration 47 minutes HEMODYNAMICS:. Right heart catheterization: Right atrial pressure is 4, right ventricular pressure is about 45/6, pulmonary artery pressure is about 45/12 and pulmonary wedge pressure is about 12. Cardiac output by thermodilution is 4.4. By Rakel method is 5.59. LEFT HEART CATHETERIZATION: The aortic pressure is about 140/70. The gradient across the aortic valve was 32 with mean of 22. The aortic valve area using thermodilution method was 1.12. By using Rakel method was 1.42. SELECTIVE CORONARY ARTERIOGRAPHY: LEFT MAIN: Normal length and patent. This is a moderate caliber vessel and patent THE LEFT ANTERIOR DESCENDING CORONARY ARTERY:. This is a moderate caliber vessel giving rise to good caliber diagonal branch. The LAD and branches are free of any significant focal lesion THE LEFT CIRCUMFLEX AND IS CORONARY ARTERY:. This is a codominant vessel giving rise to good-sized OM branch. The circumflex has about 50-60% lesion proximally near the ostium followed by another 40-50% lesion midportion. THE RIGHT CORONARY ARTERY: His is a dominant vessel giving rise to PDA and PLV branches. The RCA gives rise to 2 distal branches. After the bifurcation point the both branches have significant stenosis with a 90-95% stenosis. LEFT VENTRICULOGRAPHY: Not performed FINAL IMPRESSION:. Critical lesion involving the RCA involving 2 distal branches with with a 90-95% stenosis. Moderate disease involving the circumflex PLAN: Stent placement of the RCA. Continue to monitor aortic stenosis with periodic echocardiograms. Prognosis is guarded PROGNOSIS: []
[2017-06-06] MEDS ORDERED: BIVALIRUDIN BOLUS 250 MG/50 ML IV ONE (13:52)
[2017-06-06] MEDS ORDERED: BIVALIRUDIN 250 MG in SODIUM CHLORIDE 0.9% 50 ML IV ONE (13:55)
[2017-06-06] MEDS ORDERED: MORPHINE SULFATE 4 MG/ML SYRINGE ONE (14:01)
[2017-06-06] MEDS ORDERED: MORPHINE SULFATE 4 MG/ML SYRINGE IVP ONE (14:02)
[2017-06-06] MEDS ORDERED: NITROGLYCERIN 1000MCG/10ML SYRINGE INTRACORON ONE (14:16)
[2017-06-06] MEDS ORDERED: CLOPIDOGREL 75 MG TAB ONE (14:21)
[2017-06-06] MEDS ORDERED: CLOPIDOGREL 75 MG TAB PO ONE (14:22)
[2017-06-06] MEDS ORDERED: IOHEXOL 350 MG/ML 125ML BOTTLE INJ ONE (14:24)
[2017-06-06] MEDS ORDERED: ZOLPIDEM 5 MG TAB PO PRN (14:32)
[2017-06-06] MEDS ORDERED: RX INFO: IV CONTRAST WAS GIVEN 1 EACH MISC MISCELLANE PRN (14:32)
[2017-06-06] MEDS ORDERED: NITROGLYCERIN SL TABS 0.4 MG TAB SUBLINGUAL PRN (14:32)
[2017-06-06] MEDS ORDERED: ATROPINE SULFATE 0.1 MG/ML 10ML SYRINGE IV PRN (14:32)
[2017-06-06] MEDS ORDERED: MAG HYDROX/AL HYDROX/SIMETH 30 ML CUP PO PRN (14:32)
--- NOTE | 2017-06-06 14:51 | PTCA ---
PERCUTANEOUSTRANS CORORONARY ANGIOGRAPHY DATE OF SERVICE: 06/06/2017 PROCEDURE: PTCA and stenting of calcified mid-right coronary artery. PERFORMED BY: Dr. Nestor Dodd. ANESTHESIA: Moderate conscious sedation time was 32 minutes. CLINICAL INFORMATION: Mr. Mau Mccullough is a 72-year-old gentleman with a moderate aortic stenosis, history of paroxysmal atrial fibrillation, hypertension, and hyperlipidemia who underwent a cardiac cath performed by Dr. Nguyễn, which revealed moderate aortic stenosis with a very tight mid RCA lesion of about 90% with a heavily calcified segment, also involving an acute marginal branch of a fairly good size. He was advised intervention that was performed in the same setting. PROCEDURE NOTE: The existing 6-Spanish introducer in the right femoral artery was used to perform the procedure. A standard right Sherry-type guide catheter was used to cannulate the right coronary artery. Angiomax bolus and infusion as per protocol was given. Patient also received 600 mg of Plavix. A whisper wire was used to cross the lesion, wire was kept distally. Predilatation was performed using a 2.25 caliber 12 mm long NC trek balloon. I then deployed a 2.5 caliber 12 mm long Xience stent at the lesion and also jailed the acute marginal branch. I noted that there was another lesion just proximal to it of about 70% and this was addressed with a 8 mm long 2.5 caliber Xience stent. Both stents were deployed at 12 atmospheres. Excellent angiographic result was achieved. Patient did not have any chest pain or EKG changes. The sheath was taken out and Angio-Seal device used to secure hemostasis. The venous sheath will also be pulled and manual pressure applied. Excellent angiographic result without complication was noted. The results were communicated with the patient and family members. I expect he will be discharged tomorrow. MMODL / IJN: [id number] /
--- NOTE | 2017-06-06 14:54 | LTR ---
DATE OF SERVICE: 06/06/2017 RE: Mau Mccullough Dear Dr. Self; Thank you for the opportunity to participate in the care of Mr. Mau Mccullough. I am pleased to report that this gentleman has had an excellent angiographic result. He has moderate aortic stenosis, chronic atrial fibrillation and also history of moderate aortic stenosis. Cardiac cath revealed a significant lesion involving the mid RCA with moderate aortic stenosis. The patient was advised intervention and this was performed today. Two drug-eluting stents were deployed. Patient should be on aspirin and Plavix combination without interruption for one year. Thank you for your referral and please call for questions. With kindest regards. Sincerely yours, Nestor Dodd. MMODL / IJN: [id number] /
[2017-06-06] MEDS ORDERED: LORATADINE 10 MG TAB PO PRN (16:12)
[2017-06-06] MEDS ORDERED: ALBUTEROL NEBULIZED 2.5 MG/3 ML INHALATION PRN (16:12)
[2017-06-06] MEDS: SODIUM CHLORIDE 0.9% 1,000 ML IV SCH (16:30)
[2017-06-06] MEDS ORDERED: WARFARIN 2.5 MG TAB PO SCH (18:00)
[2017-06-06] MEDS: SYMBICORT 160-4.5 MCG INHALER INHALATION SCH (19:49)
[2017-06-06] MEDS: MAGNESIUM OXIDE 400 MG TAB PO SCH (20:03)
[2017-06-06] MEDS: cycloSPORINE 0.05% OPHTH 0.4 ML DROPERETTE BOTH EYES SCH (20:03)
[2017-06-06] MEDS: METOPROLOL TARTRATE 25 MG TAB PO SCH (20:04)
[2017-06-06] MEDS ORDERED: MONTELUKAST 10 MG TAB PO SCH (21:00)
[2017-06-06] MEDS ORDERED: ATORVASTATIN 40 MG TAB PO SCH (21:00)
[2017-06-06] MEDS ORDERED: DOCUSATE 100 MG CAP PO SCH (21:00)
[2017-06-06] MEDS: FLUTICASONE 50MCG/SPRAY NASAL 16GM EA NOSTRIL SCH (21:19)
[2017-06-07 05:24] LABS: Basophils % (A) 0 %; Eosinophils # (A) 0.1 k/uL (0-0.7); Eosinophils % (A) 2 %; HCT 34.8 % (39.0-53.0); HGB 11.3 gm/dL (13.0-17.5); Lymphocytes # (A) 1.6 k/uL (1.0-4.8); Lymphocytes % (A) 24 %; MCH 31.2 pg (25.0-35.0); MCHC 32.6 g/dL (31.0-37.0); MCV 95.8 fL (80.0-100.0); Mean Platelet Volume 7.3; Monocytes # (A) 0.6 k/uL (0-1.0); Monocytes % (A) 9 %; Neutrophils # (A) 4.2 k/uL (1.3-7.7); Neutrophils % (A) 63 %; Platelet Count 217 k/uL (150-450); RBC 3.63 m/uL (4.30-5.90); RDW 13.8 % (11.5-15.5); WBC 6.6 k/uL (3.8-10.6)
[2017-06-07 05:38] LABS: Anion Gap 7 mmol/L; Blood Urea Nitrogen 19 mg/dL (9-20); Carbon Dioxide 31 mmol/L (22-30); Chloride 100 mmol/L (98-107); Glucose 102 mg/dL (74-99); Potassium 4.1 mmol/L (3.5-5.1); Sodium 138 mmol/L (137-145)
[2017-06-07] MEDS: SYMBICORT 160-4.5 MCG INHALER INHALATION SCH (08:20)
[2017-06-07 08:24] VITALS: RESP 18
[2017-06-07] MEDS: SODIUM CHLORIDE 0.9% 1,000 ML IV SCH (08:44)
[2017-06-07] MEDS: cycloSPORINE 0.05% OPHTH 0.4 ML DROPERETTE BOTH EYES SCH (08:45)
[2017-06-07] MEDS: FLUTICASONE 50MCG/SPRAY NASAL 16GM EA NOSTRIL SCH (08:45)
[2017-06-07] MEDS: METOPROLOL TARTRATE 25 MG TAB PO SCH (08:46)
[2017-06-07] MEDS: MAGNESIUM OXIDE 400 MG TAB PO SCH (08:46)
[2017-06-07] MEDS ORDERED: CLOPIDOGREL 75 MG TAB PO SCH (09:00)
[2017-06-07] MEDS ORDERED: POTASSIUM CHLORIDE ER 20 MEQ TAB.ER PO SCH (09:00)
[2017-06-07] MEDS ORDERED: TAMSULOSIN 0.4 MG CAP.ER.24H PO SCH (09:00)
[2017-06-07] MEDS ORDERED: FUROSEMIDE 40 MG TAB PO SCH (09:00)
[2017-06-07] MEDS ORDERED: OXYBUTYNIN 10 MG TAB.ER.24 PO SCH (09:00)
[2017-06-07] MEDS ORDERED: ASPIRIN 81 MG PO SCH (09:00)
[2017-06-07 09:06] VITALS: BP 114/62; PULSE 66; TEMP 97.2
[2017-06-07 10:06] VITALS: BMI 35.8
[2017-06-07] MEDS ORDERED: CHOLECALCIFEROL 1,000 UNIT TAB PO SCH (12:00)
[2017-06-07] MEDS ORDERED: CYANOCOBALAMIN 500 MCG TAB PO SCH (12:00)
--- NOTE | 2017-06-07 12:12 | P.PN ---
Subjective Progress Note Date: 06/07/17 Discharge note This is a 72-year-old gentleman with history of chronic persistent atrial fibrillation, diastolic congestive heart failure chronic, COPD, aortic stenosis, who was recently evaluated for symptoms of increasing shortness of breath. TE examination was consistent with severe aortic stenosis. Patient was advised to undergo cardiac catheterization, subsequently he underwent angioplasty and stenting of the mid right coronary artery. Patient was seen and examined this morning, denied any chest discomfort or difficulty in breathing. Hemodynamically stable, atrial fibrillation with no acute changes from post-PCI. Patient will be able to be discharged home today to follow-up with Dr. Nguyễn in the office post discharge. Objective - Vital Signs Vital signs: Vital Signs Temp 97.2 F L 06/07/17 08:00 Pulse 79 06/07/17 08:20 Resp 18 06/07/17 08:20 BP 114/62 06/07/17 08:00 Pulse Ox 96 06/07/17 08:00 Intake & Output 06/06/17 06/07/17 06/07/17 18:59 06:59 18:59 Intake Total 200 337 Output Total 600 Balance 200 -600 337 Weight 111.584 kg 113.3 kg 113.3 kg Intake: IV 200 Oral 337 Output: Urine 600 Other: Voiding Method Toilet # Voids 1 1 - Exam PHYSICAL EXAMINATION: HEENT: Head is atraumatic, normocephalic. Pupils equal, round. Neck is supple. There is no elevated jugular venous pressure. HEART EXAMINATION: Heart S1 and S2 irregularly irregular a systolic ejection murmur is heard. CHEST EXAMINATION: Lungs are clear to auscultation and precussion. No chest wall tenderness is noted on palpation or with deep breathing. ABDOMEN: Soft, nontender. Bowel sounds are heard. No organomegaly noted. Right groin is soft, no evidence of any hematoma. EXTREMITIES: 2+ peripheral pulses with no evidence of peripheral edema and no calf tenderness noted. NEUROLOGIC patient is awake, alert and oriented -3. . - Labs CBC & Chem 7: 06/07/17 05:13 06/07/17 05:13 Labs: Abnormal Lab Results - Last 24 Hours (Table) 06/07/17 06/07/17 Range/Units 05:13 05:13 RBC 3.63 L (4.30-5.90) m/uL Hgb 11.3 L (13.0-17.5) gm/dL Hct 34.8 L (39.0-53.0) % Carbon Dioxide 31 H (22-30) mmol/L Glucose 102 H (74-99) mg/dL Assessment and Plan Plan: Assessment and plan #1 status post angioplasty and stenting of the right coronary artery #2 severe aortic stenosis #3 chronic persistent atrial fibrillation #4 hypertension #5 hyperlipidemia #6 COPD Plan Patient may be able to be discharged home today. A follow-up appointment will be made in the office with Dr. Nguyễn in one week. Pataient will be discharged home on aspirin 81 mg daily, Lipitor 40 mg daily, Plavix 75 mg daily , Symbicort, Lasix 40 mg daily, Lopressor 25 mg one tablet by mouth twice a day , Lasix and potassium as at home, Coumadin will also be resumed, as per the home dose. Sublingual nitroglycerin as needed for chest pain. DNP note has been reviewed, I agree with a documented findings and plan of care. Patient was seen and examined.
== END 2017-06-07 10:20 | disposition home or self-care (01) ==
LOC: CATHCVL 10:48 → 6SEL 14:23 → CATHCVL 06-07 10:20
PROVIDERS: ATTEND Internal Medicine Cardiovascular Disease
DX: I25.10 Atherosclerotic heart disease of native coronary artery without angina pectoris (principal); I25.84 Coronary atherosclerosis due to calcified coronary lesion; I11.0 Hypertensive heart disease with heart failure; I50.32 Chronic diastolic (congestive) heart failure; Z87.891 Personal history of nicotine dependence; I35.0 Nonrheumatic aortic (valve) stenosis; I42.8 Other cardiomyopathies; I48.0 Paroxysmal atrial fibrillation; Z79.01 Long term (current) use of anticoagulants; E78.00 Pure hypercholesterolemia, unspecified; J44.9 Chronic obstructive pulmonary disease, unspecified; E78.5 Hyperlipidemia, unspecified; Z79.51 Long term (current) use of inhaled steroids; Z79.899 Other long term (current) drug therapy; Z88.8 Allergy status to other drugs, medicaments and biological substances
CPT/HCPCS: 94640 ×2; 93460; 80048; 85018; 82810; 85025; 85610; C9600; C1760; C1769 ×4; C1887; C1725; C1894 ×2; C1874; J2001; J2250; J2270; J3010; J0583; Q9967

== ENCOUNTER 2017-06-20 16:07 | Emergency (ER) | payer MEDICARE, BC ==
--- NOTE | 2017-06-20 16:37 | ED ---
ENT HPI - General Chief complaint: ENT Stated complaint: Nosebleed Time Seen by Provider: 06/20/17 16:20 Source: family, RN notes reviewed Mode of arrival: ambulatory Limitations: no limitations - History of Present Illness Initial comments: This is a 72-year-old male who presents to the emergency department with chief complaint of nosebleed. Patient states that he has had a nosebleed since 11 AM this morning. He states that he takes Coumadin. He has been on this for about a year and a half. He states that 2 weeks ago he has recently started on Plavix. He also takes low-dose aspirin daily. Patient states that he had a nosebleed on Sunday and by the time he arrived to his primary care's office, the nosebleed had subsided. Patient states that the nosebleed is only in his left nare with no draining down the throat. Denies any trauma to the nose. Denies any coagulopathies. Denies fever, chills, chest pain, shortness of breath , abdominal pain, nausea or vomiting, constipation or diarrhea, dysuria or hematuria, numbness or tingling, headache or vision changes. - Related Data Home Medications Medication Instructions Recorded Confirmed Montelukast [Singulair] 10 mg PO HS 09/09/13 06/20/17 Tamsulosin [Flomax] 0.4 mg PO QAM 09/09/13 06/20/17 Spironolactone 25 mg PO BID 04/03/14 06/20/17 Cholecalciferol [Vitamin D3] 2,000 unit PO DAILY 06/09/15 06/20/17 cycloSPORINE [Restasis] 1 drop BOTH EYES BID 06/09/15 06/20/17 Ascorbic Acid [Vitamin C] 1,000 mg PO DAILY 08/07/16 06/20/17 Budesonide-Formot 160-4.5 Mcg 2 puff INHALATION RT-BID 08/07/16 06/20/17 [Symbicort 160-4.5 Mcg Inhaler] Cyanocobalamin (Vitamin B-12) 2,500 mcg PO DAILY 08/07/16 06/20/17 [Vitamin B-12] Fluticasone Nasal [place] [Flonase 2 spr EA NOSTRIL BID 08/07/16 06/20/17 Nasal [place]] Loratadine [Claritin] 10 mg PO DAILY PRN 08/07/16 06/20/17 Magnesium Oxide [Mag-Ox] 250 mg PO BID 08/07/16 06/20/17 Metoprolol Tartrate [Lopressor] 25 mg PO BID 08/07/16 06/20/17 Pantoprazole Sodium [Protonix] 40 mg PO BID 08/07/16 06/20/17 Tiotropium 18 Mcg/Puff [Spiriva] 1 cap INHALATION RT-HS 08/07/16 06/20/17 Albuterol Nebulized [Ventolin 2.5 mg INHALATION RT-QID PRN 05/02/17 06/20/17 Nebulized] Atorvastatin [Lipitor] 40 mg PO HS 05/02/17 06/20/17 Cyclobenzaprine [Flexeril] 5 mg PO HS 05/02/17 06/20/17 Solifenacin Succinate [Vesicare] 5 mg PO QAM 05/02/17 06/20/17 Docusate [Colace] 100 mg PO QID 06/04/17 06/20/17 Warfarin [Coumadin] 2.5 mg PO HS 06/04/17 06/20/17 Furosemide [Lasix] 40 mg PO TID 06/20/17 06/20/17 Potassium 198 mg PO DAILY 06/20/17 06/20/17 Previous Rx's Medication Instructions Recorded Clopidogrel [Plavix] 75 mg PO DAILY #30 tab 06/07/17 Nitroglycerin Sl Tabs [Nitrostat] 0.4 mg SUBLINGUAL Q5M PRN #25 tab 06/07/17 Oxymetazoline 0.05% Nasl [place] 1 - 2 spray EA NOSTRIL ONCE PRN #1 06/20/17 [Afrin 0.05% Nasal [place]] bottle Allergies Allergy/AdvReac Type Severity Reaction Status Date / Time Aetjlsn-Ugl-Mpk Reductase Allergy Mild Rash/Hives Verified 06/20/17 16:42 Inhibitor Review of Systems ROS Statement: Those systems with pertinent positive or pertinent negative responses have been documented in the HPI. ROS Other: All systems not noted in ROS Statement are negative. Past Medical History Past Medical History: Cancer, COPD, GERD/Reflux, Hyperlipidemia, Osteoarthritis (OA), Prostate Disorder, Sleep Apnea/CPAP/BIPAP Additional Past Medical History / Comment(s): Prostate cancer. see Dr Gundlapalli H&P, O2 2L PRN, hiatal hernia, kidney stones, "bad back", uses oxygen 2L PRN, History of Any Multi-Drug Resistant Organisms: None Reported Past Surgical History: Bladder Surgery, Heart Catheterization With Stent, Hernia Repair, Tonsillectomy Additional Past Surgical History / Comment(s): CARDIOVERSION, MUKESH FEMORAL BYPASS SURGERY, MUKESH.inguinal hernia, UMBILICAL HERNIA REPAIR, surgery for PILONIDAL CYST, mukesh CATARACTS, ARCH/AORTOGRAM, cystoscopy for KIDNEY STONE REMOVAL x 3, LT CAROTID ENDARTECTOMY. BRAYDEN 05/10/1706/06 2 stents to the RCA Past Anesthesia/Blood Transfusion Reactions: No Reported Reaction Date of Last Stent Placement:: 06/06 Past Psychological History: No Psychological Hx Reported Smoking Status: Former smoker Past Alcohol Use History: Heavy Past Drug Use History: None Reported - Past Family History Father Family Medical History: Liver Disease Mother Family Medical History: No Reported History Additional Family Medical History / Comment(s): . General Exam - General Exam Comments Initial Comments: General: Awake and alert, well-developed; in no apparent distress. HEENT: Head atraumatic, normocephalic. Pupils are equal, round and reactive to light. Extraocular movements intact. Oropharynx moist without erythema or exudate. Left nare is packed with tissue. Upon removal, one small blood clot was noted. No active bleeding currently. Neck: Supple. Normal ROM. Cardiovascular: Regular rate and rhythm. No murmurs, rubs or gallops. Chest symmetrical. Respiratory: Lungs clear to auscultation bilaterally. No wheezes, rales or rhonchi. Normal respiratory effort with no use of accessory muscles. Musculoskeletal: Normal ROM, no tenderness bilateral upper and lower extremities. Ambulating normally. Skin: [place], warm and dry without rashes or lesions. Neurological: Alert and oriented x3. CN II-XII grossly intact. Speech is fluent and answers are appropriate. No focal neuro deficits. Psychiatric: Normal mood and affect. No overt signs of depression or anxiety noted. Limitations: no limitations Course Vital Signs 06/20/17 16:10 Temperature 98.5 F Pulse Rate 85 Respiratory 18 Rate Blood Pressure 122/71 O2 Sat by Pulse 100 Oximetry Medical Decision Making - Medical Decision Making This is a 72-year-old male who is currently on Coumadin and Plavix who presents to the emergency department with chief complaint of nosebleed. Patient denies any trauma to the nose. Bleeding is only present in the left nare with no drainage down the throat. While in the emergency department, patient has had no active bleeding from the nose. CBC and PT/INR were obtained. CBC was within normal limits. INR was 2.6. Patient's vital signs have been stable and he is in no acute distress. He will be discharged home. Patient was provided with a nasal clamp. Recommended using Afrin and clamp if he develops another nosebleed. He is to perform this twice and if the bleeding continues he is to return to the emergency department. Patient is in agreement with plan and voices understanding. All questions were answered. - Lab Data Result diagrams: 06/20/17 16:42 Lab Results 06/20/17 06/20/17 Range/Units 16:42 16:42 WBC 6.8 (3.8-10.6) k/uL RBC 4.43 (4.30-5.90) m/uL Hgb 13.5 (13.0-17.5) gm/dL Hct 41.2 (39.0-53.0) % MCV 93.1 (80.0-100.0) fL MCH 30.4 (25.0-35.0) pg MCHC 32.6 (31.0-37.0) g/dL RDW 13.6 (11.5-15.5) % Plt Count 286 (150-450) k/uL Neutrophils % 64 % Lymphocytes % 22 % Monocytes % 9 % Eosinophils % 2 % Basophils % 1 % Neutrophils # 4.3 (1.3-7.7) k/uL Lymphocytes # 1.5 (1.0-4.8) k/uL Monocytes # 0.6 (0-1.0) k/uL Eosinophils # 0.1 (0-0.7) k/uL Basophils # 0.0 (0-0.2) k/uL PT 23.2 H (9.0-12.0) sec INR 2.6 H (<1.2) APTT 28.6 (22.0-30.0) sec Disposition Clinical Impression: Epistaxis Disposition: HOME SELF-CARE Condition: Good Instructions: Nosebleed (ED) Additional Instructions: If you develop another bloody nose, please blow your nose and use a spray of Afrin and then clamp your nose for 15-20 minutes. If upon removing the clamp, you are still bleeding please blow your nose an additional time, use Afrin again and apply the clamp again. If after the second time you're still bleeding , please return to the emergency department. Please follow up with primary care provider within 1-2 days. Return to emergency department if symptoms should worsen or any concerns arise. Prescriptions: Oxymetazoline 0.05% Nasl [place] [Afrin 0.05% Nasal [place]] 1 - 2 spray EA NOSTRIL ONCE PRN #1 bottle PRN Reason: nose bleed Referrals: Karl Self DO [Primary Care Provider] - 1-2 days Time of Disposition: 17:14
[2017-06-20 16:54] LABS: Basophils % (A) 1 %; Eosinophils # (A) 0.1 k/uL (0-0.7); Eosinophils % (A) 2 %; HCT 41.2 % (39.0-53.0); HGB 13.5 gm/dL (13.0-17.5); Lymphocytes # (A) 1.5 k/uL (1.0-4.8); Lymphocytes % (A) 22 %; MCH 30.4 pg (25.0-35.0); MCHC 32.6 g/dL (31.0-37.0); MCV 93.1 fL (80.0-100.0); Mean Platelet Volume 7.3; Monocytes # (A) 0.6 k/uL (0-1.0); Monocytes % (A) 9 %; Neutrophils # (A) 4.3 k/uL (1.3-7.7); Neutrophils % (A) 64 %; Platelet Count 286 k/uL (150-450); RBC 4.43 m/uL (4.30-5.90); RDW 13.6 % (11.5-15.5); WBC 6.8 k/uL (3.8-10.6)
[2017-06-20 17:02] LABS: INR 2.6 (<1.2); Partial Thromboplastin Time 28.6 sec (22.0-30.0); Prothrombin Time 23.2 sec (9.0-12.0)
[2017-06-20 17:30] VITALS: BP 114/80; PULSE 78; RESP 17; TEMP 97.3
== END 2017-06-20 17:31 | disposition home or self-care (01) ==
LOC: EC 16:07
DX: R04.0 Epistaxis (principal); J44.9 Chronic obstructive pulmonary disease, unspecified; K21.9 Gastro-esophageal reflux disease without esophagitis; E78.5 Hyperlipidemia, unspecified; M19.90 Unspecified osteoarthritis, unspecified site; N42.9 Disorder of prostate, unspecified; G47.30 Sleep apnea, unspecified; Z99.89 Dependence on other enabling machines and devices; Z85.46 Personal history of malignant neoplasm of prostate; Z87.891 Personal history of nicotine dependence; Z79.51 Long term (current) use of inhaled steroids; Z79.01 Long term (current) use of anticoagulants; Z79.899 Other long term (current) drug therapy; Z88.8 Allergy status to other drugs, medicaments and biological substances
CPT/HCPCS: 36415; 85025; 85610; 85730; 99283

== ENCOUNTER 2017-09-12 14:31 | Inpatient (IN) | payer MEDICARE, BC ==
[2017-09-12 11:11] LABS: Blood Urea Nitrogen 21 mg/dL (9-20)
--- NOTE | 2017-09-12 14:34 | CT ---
EXAMINATION TYPE: CT abdomen pelvis w con DATE OF EXAM: 09/12/2017 COMPARISON: 12/29/2014 HISTORY: RLQ pain CT DLP: 1718 mGycm Automated exposure control for dose reduction was used. TECHNIQUE: Helical acquisition of images was performed from the lung bases through the pelvis. CONTRAST: Performed with Oral Contrast and with IV Contrast, patient injected with 100 mL of Isovue 300. FINDINGS: LUNG BASES: Nodular densities at the right lung base are favored to represent atelectasis given the a djacent atelectasis and somewhat similar appearance to the prior exam of 2014. Subpleural deposition of fat is seen on the right. Linear pleural parenchymal scarring is multifocal in the lung bases and lingula. LIVER/GB: There is extensive pericholecystic inflammatory fat stranding with minimal adjacent bowel w all thickening of the hepatic flexure, likely reactive. Biliary sludge or nonradiopaque calculi layer ing dependently within the gallbladder neck. Common bile duct is focally dilated measuring 8 mm. The gallbladder is also hydropic in size measuring 11.7 cm. Solitary probable hepatic cyst measures 8 mm within the left hepatic lobe. Additional punctate 2 mm too small to accurately characterize left hepa tic lesion is seen in series 3 image 12. The remainder the liver is grossly unremarkable. There is re active cervical thickening of the duodenum in its descending portion such as on series 3 image 36 wit h wall thickening measuring up to 1.1 cm, likely relating to reactive duodenitis. Inflammatory fat st randing extends down the right lateral conal fascia. PANCREAS: No significant abnormality is seen. No ductal dilatation. SPLEEN: No significant abnormality is seen. ADRENALS: No significant abnormality is seen. 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 Bilateral nonobstructing renal calculi are present measuring 4 mm in the right upper pole, 9 mm in the right lower pole, 9 mm in the left lower pole, 2 mm in the left mid pole, none of which are obstr ucting. Areas of parenchymal scarring and bilateral probable renal cysts are also seen. FREE AIR: No free air is visualized. ADENOPATHY: No greater than 1 cm short axis lymph node is seen within the abdomen or pelvis. REPRODUCTIVE ORGANS: Prostate gland is diffusely heterogenous. URINARY BLADDER: No significant abnormality is seen. OSSEOUS STRUCTURES: Subtle subchondral geographic density with serpiginous margin is seen in series 5 image 78 in bone windows concerning for subchondral insufficiency fractures or avascular necrosis. BOWEL: There is a moderate hiatal hernia with retained oral contrast. Incidental note is made of a f at filled right inguinal hernia. The redundant sigmoid colon enters the most superior aspect of this hernia without proximal dilatation to suggest current entrapment. No dilated bowel. OTHER: Extensive atheromatous changes are seen of the abdominal aorta and its branches with aortobife moral graft material. IMPRESSION: 1. FINDINGS MOST COMPATIBLE WITH ACUTE CHOLECYSTITIS WITH EITHER BILIARY SLUDGE OR NONRADIOPAQUE STON ES LAYERING DEPENDENTLY WITHIN THE GALLBLADDER NECK, EXTENSIVE PERICOLONIC FAT STRANDING, ENLARGEMENT OF THE GALLBLADDER, AND MILD COMMON BILE DUCT DILATATION. FINDINGS WERE RELAYED TO THE ORDERING PROV IDER BY DR. VEGA ON 1445 ON 09/12/2017. INSTRUCTIONS WERE GIVEN TO THE PATIENT TO PROCEED TO THE ER. 2. FAT FILLED RIGHT INGUINAL HERNIA WITH ABUTTING LOOP OF LARGE BOWEL. 3. MODERATE HIATAL HERNIA. 4. BILATERAL NONOBSTRUCTING RENAL CALCULI, PROBABLE RENAL CYSTS, POSSIBLE HEPATIC CYSTS, AND BENIGN R IGHT ANGIOMYOLIPOMA. 5. FINDINGS CONCERNING FOR BILATERAL AVASCULAR NECROSIS VERSUS LESS LIKELY SUBCHONDRAL INSUFFICIENCY FRACTURES.
[2017-09-12] MEDS ORDERED: SODIUM CHLORIDE 0.9% 1,000 ML IV STA (14:50)
[2017-09-12] MEDS ORDERED: ONDANSETRON 4 MG/2 ML VIAL IVP STA (14:50)
[2017-09-12] MEDS ORDERED: MORPHINE SULFATE 2 MG/ML SYRINGE IVP STA (14:53)
--- NOTE | 2017-09-12 14:53 | ED ---
General Adult HPI - General Source: patient, RN notes reviewed Mode of arrival: wheelchair Limitations: no limitations <Javier Yanes - Last Filed: 09/12/17 16:00> <Micheal Harmon - Last Filed: 09/12/17 16:12> - General Chief complaint: Abdominal Pain Stated complaint: Abd.pain Time Seen by Provider: 09/12/17 14:43 - History of Present Illness Initial comments: Patient 72-year-old male presented emergency room today with a chief complaint of a abnormal CT at outpatient per patient does admit that his had abdominal pain over the last 3 or 4 days. He does admit that located on the right side of the abdomen. Does admit that he went to family doctor's office and he ordered an outpatient CT. He states that from CAT scan was advised coming here to the emergency room. Patient currently rates pain 5/10 located on the right side of the abdomen. Patient denies any other complaints or symptoms. Patient denies any recent fever, chills, shortness of breath, chest pain, back pain, dysuria or hematuria, constipation or diarrhea, headaches or visual changes, or any other complaints. (Javier Yanes) - Related Data Home Medications Medication Instructions Recorded Confirmed Montelukast [Singulair] 10 mg PO HS 09/09/13 09/12/17 Tamsulosin [Flomax] 0.4 mg PO QAM 09/09/13 09/12/17 Spironolactone 25 mg PO BID 04/03/14 09/12/17 Cholecalciferol [Vitamin D3] 2,000 unit PO DAILY 06/09/15 09/12/17 cycloSPORINE [Restasis] 1 drop BOTH EYES BID 06/09/15 09/12/17 Ascorbic Acid [Vitamin C] 1,000 mg PO DAILY 08/07/16 09/12/17 Budesonide-Formot 160-4.5 Mcg 2 puff INHALATION RT-BID 08/07/16 09/12/17 [Symbicort 160-4.5 Mcg Inhaler] Cyanocobalamin (Vitamin B-12) 2,500 mcg PO DAILY 08/07/16 09/12/17 [Vitamin B-12] Fluticasone Nasal [place] [Flonase 2 spr EA NOSTRIL BID 08/07/16 09/12/17 Nasal [place]] Loratadine [Claritin] 10 mg PO DAILY PRN 08/07/16 09/12/17 Magnesium Oxide [Mag-Ox] 250 mg PO BID 08/07/16 09/12/17 Metoprolol Tartrate [Lopressor] 25 mg PO BID 08/07/16 09/12/17 Pantoprazole Sodium [Protonix] 40 mg PO BID 08/07/16 09/12/17 Tiotropium 18 Mcg/Puff [Spiriva] 1 cap INHALATION RT-HS 08/07/16 09/12/17 Albuterol Nebulized [Ventolin 2.5 mg INHALATION RT-QID PRN 05/02/17 09/12/17 Nebulized] Atorvastatin [Lipitor] 40 mg PO HS 05/02/17 09/12/17 Cyclobenzaprine [Flexeril] 5 mg PO HS 05/02/17 09/12/17 Solifenacin Succinate [Vesicare] 5 mg PO QAM 05/02/17 09/12/17 Docusate [Colace] 100 mg PO QID 06/04/17 09/12/17 Warfarin [Coumadin] 2.5 mg PO QUINN 06/04/17 09/12/17 Furosemide [Lasix] 40 mg PO TID 06/20/17 09/12/17 Potassium 198 mg PO DAILY 06/20/17 09/12/17 Aspirin EC [Ecotrin Low Dose] 81 mg PO DAILY 09/12/17 09/12/17 Clopidogrel [Plavix] 75 mg PO HS 09/12/17 09/12/17 Warfarin [Coumadin] 3.75 mg PO [id number] 09/12/17 09/12/17 Previous Rx's Medication Instructions Recorded Nitroglycerin Sl Tabs [Nitrostat] 0.4 mg SUBLINGUAL Q5M PRN #25 tab 06/07/17 Allergies Allergy/AdvReac Type Severity Reaction Status Date / Time Txkrthm-[id number]-[id number] Reductase Allergy Mild Rash/Hives Verified 09/12/17 14:53 Inhibitor Review of Systems ROS Other: All systems not noted in ROS Statement are negative. <Javier Yanes - Last Filed: 09/12/17 16:00> ROS Other: All systems not noted in ROS Statement are negative. <Micheal Harmon - Last Filed: 09/12/17 16:12> ROS Statement: Those systems with pertinent positive or pertinent negative responses have been documented in the HPI. Past Medical History Past Medical History: Cancer, COPD, GERD/Reflux, Hyperlipidemia, Osteoarthritis (OA), Prostate Disorder, Sleep Apnea/CPAP/BIPAP Additional Past Medical History / Comment(s): Prostate cancer. see Dr Nguyễn H&P, O2 2L PRN, hiatal hernia, kidney stones, "bad back", uses oxygen 2L PRN, History of Any Multi-Drug Resistant Organisms: None Reported Past Surgical History: Bladder Surgery, Heart Catheterization With Stent, Hernia Repair, Tonsillectomy Additional Past Surgical History / Comment(s): CARDIOVERSION, MUKESH FEMORAL BYPASS SURGERY, MUKESH.inguinal hernia, UMBILICAL HERNIA REPAIR, surgery for PILONIDAL CYST, mukesh CATARACTS, ARCH/AORTOGRAM, cystoscopy for KIDNEY STONE REMOVAL x 3, LT CAROTID ENDARTECTOMY. BRAYDEN 05/10/1706/06 2 stents to the RCA Past Anesthesia/Blood Transfusion Reactions: No Reported Reaction Date of Last Stent Placement:: 06/06 Past Psychological History: No Psychological Hx Reported Smoking Status: Former smoker Past Alcohol Use History: Heavy Past Drug Use History: None Reported - Past Family History Father Family Medical History: Liver Disease Mother Family Medical History: No Reported History Additional Family Medical History / Comment(s): . <Javier Yanes - Last Filed: 09/12/17 16:00> General Exam Limitations: no limitations <Javier Yanes - Last Filed: 09/12/17 16:00> <Micheal Harmon - Last Filed: 09/12/17 16:12> - General Exam Comments Initial Comments: General: The patient is awake and alert, in no distress, and does not appear acutely ill. Eye: Pupils are equal, round and reactive to light, extra-ocular movements are intact. No nystagmus. There is normal conjunctiva bilaterally. No signs of icterus. Ears, nose, mouth and throat: There are moist mucous membranes and no oral lesions. Neck: The neck is supple, there is no tenderness or JVD. Cardiovascular: There is a regular rate and rhythm. No murmur, rub or gallop is appreciated. Respiratory: Lungs are clear to auscultation, respirations are non-labored, breath sounds are equal. No wheezes, stridor, rales, or rhonchi. Gastrointestinal: Abdomen soft on palpation. Patient does have tenderness right side of the abdomen increased right upper quadrant. No rebound tenderness. No guarding. No CVA tenderness. Musculoskeletal: Normal ROM, no tenderness. Strength 5/5. Sensation intact. Pulses equal bilaterally 2+. Neurological: A&O x 3. CN II-XII intact, There are no obvious motor or sensory deficits. Coordination appears grossly intact. Speech is normal. Skin: Skin is warm and dry and no rashes or lesions are noted. Psychiatric: Cooperative, appropriate mood & affect, normal judgment. (Javier Yanes) Course <Javier Yanes - Last Filed: 09/12/17 16:00> <Micheal Harmon - Last Filed: 09/12/17 16:12> Vital Signs 09/12/17 14:35 Temperature 99.4 F Pulse Rate 77 Respiratory 18 Rate Blood Pressure 120/69 O2 Sat by Pulse 95 Oximetry - Reevaluation(s) Reevaluation #1: 09/12/17 16:11 PA supervision: I did personally do a [id number] evaluation the patient did discuss findings with him. His family were present. He does have evidence of acute cholecystitis he'll be admitted to the medical service of Dr. Carrero who did come to the emergency department see the patient. I do agree with the assessment and plan. (Micheal Harmon) Medical Decision Making - Lab Data Result diagrams: 09/12/17 10:43 <Javier Yanes - Last Filed: 09/12/17 16:00> - Lab Data Result diagrams: 09/12/17 10:43 <Micheal Harmon - Last Filed: 09/12/17 16:12> - Medical Decision Making Patient's CT of the abdomen and pelvis was reviewed. Does show evidence for cholecystitis case discussed and seen a physician Dr. Dukes did discuss case with physician Dr. Molina along with surgeon Dr. Morales. Patient will be started on antibiotics and admitted to the hospital. Patient is aware the plan states understanding (Javier Yanes) - Lab Data Lab Results 09/12/17 Range/Units 10:43 BUN 21 H (9-20) mg/dL Creatinine 0.92 (0.66-1.25) mg/dL Est GFR (CKD-EPI)AfAm >90 (>60 ml/min/1.73 sqM) Est GFR (CKD-EPI)NonAf 84 (>60 ml/min/1.73 sqM) Disposition Is patient prescribed a controlled substance at d/c from ED?: No Time of Disposition: 16:01 <Javier Yanes - Last Filed: 09/12/17 16:00> <Micheal Harmon - Last Filed: 09/12/17 16:12> Clinical Impression: Acute cholecystitis Disposition: ADMITTED IP TO THIS HOSP Condition: Stable Referrals: Karl Self DO [Primary Care Provider] - 1-2 days
[2017-09-12] MEDS ORDERED: NALOXONE 0.4 MG/ML 1 ML VIAL IV PRN (16:10)
[2017-09-12] MEDS ORDERED: SODIUM CHLORIDE 0.9% 1,000 ML IV ONE (16:10)
[2017-09-12 16:16] LABS: Basophils % (A) 0 %; Eosinophils % (A) 0 %; HCT 40.1 % (39.0-53.0); HGB 13.5 gm/dL (13.0-17.5); Lymphocytes # (A) 1.3 k/uL (1.0-4.8); Lymphocytes % (A) 10 %; MCH 31.7 pg (25.0-35.0); MCHC 33.8 g/dL (31.0-37.0); MCV 93.9 fL (80.0-100.0); Mean Platelet Volume 7.4; Monocytes # (A) 0.8 k/uL (0-1.0); Monocytes % (A) 6 %; Neutrophils # (A) 10.9 k/uL (1.3-7.7); Neutrophils % (A) 83 %; Platelet Count 216 k/uL (150-450); RBC 4.27 m/uL (4.30-5.90); RDW 13.5 % (11.5-15.5); WBC 13.2 k/uL (3.8-10.6)
[2017-09-12 16:25] LABS: INR 2.6 (<1.2); Partial Thromboplastin Time 32.6 sec (22.0-30.0); Prothrombin Time 23.2 sec (9.0-12.0)
[2017-09-12 16:27] LABS: ALT 289 U/L (21-72); AST 233 U/L (17-59); Albumin 3.8 g/dL (3.5-5.0); Alkaline Phosphatase 277 U/L (38-126); Anion Gap 16 mmol/L; Blood Urea Nitrogen 20 mg/dL (9-20); Calcium 9.1 mg/dL (8.4-10.2); Carbon Dioxide 28 mmol/L (22-30); Chloride 91 mmol/L (98-107); Glucose 83 mg/dL (74-99); Potassium 3.8 mmol/L (3.5-5.1); Sodium 135 mmol/L (137-145); Total Protein 6.5 g/dL (6.3-8.2)
[2017-09-12] MEDS ORDERED: PIPERACILLIN-TAZOBACTAM 3.375 GM in DEXTROSE/WATER 1 50ML.BAG IVPB STA (16:32)
[2017-09-12] MEDS ORDERED: LORATADINE 10 MG TAB PO PRN (17:05)
[2017-09-12] MEDS ORDERED: ALBUTEROL NEBULIZED 2.5 MG/3 ML INHALATION PRN (17:05)
[2017-09-12] MEDS ORDERED: NITROGLYCERIN SL TABS 0.4 MG TAB SUBLINGUAL PRN (17:05)
[2017-09-12] MEDS ORDERED: LORazepam 1 MG TAB PO PRN (17:07)
--- NOTE | 2017-09-12 17:46 | HP ---
HISTORY AND PHYSICAL CHIEF COMPLAINT: Abdominal pain. HISTORY OF PRESENT ILLNESS: This 72-year-old gentleman with a past history of COPD, GERD, hypertension, hyperlipidemia, history of coronary artery disease and stent being followed by Dr. Self in the outpatient setting was complaining of abdominal pain on and off in the past. For the last 4 days the patient is having increasing pain located in the right upper quadrant, and the patient came to [facility] and admitted for further evaluation and treatment. There is no history of fever, rigors. No history of headache, loss of consciousness, seizures. CT scan of the abdomen pelvis is done in the ER which showed multiple findings including acute cholecystitis with biliary sludge or non-radiopaque stones, fat filled right inguinal hernia, moderate hiatal hernia and bilateral nonobstructing renal calculi and also possible bilateral avascular necrosis versus left leg insufficient fractures. Surgery was consulted and the patient admitted for further evaluation and treatment. There is no history of fever, rigors. No headache, loss of consciousness, seizures. The patient is on Coumadin from Cardiology. PAST MEDICAL HISTORY: History of COPD, GERD, hyperlipidemia, DJD, history of prostate cancer, history of stent. MEDICATIONS: Prior to admission, home medications, the list includes: 1. Coumadin 3.7 mg p.o. Sunday, Sunday, Sunday, , Sunday and Sunday and 2.5 mg Sunday. 2. Spiriva 1 puff a day q.h.s. 3. Flomax 0.5 q.a.m. 4. Aldactone 25 mg p.o. b.i.d. 5. VESIcare 5 mg p.o. q.a.m. 6. Potassium 198 mg p.o. daily. 7. Protonix 40 mg p.o. b.i.d. 8. Nitrostat 0.4 subcu 5 p.r.n. 9. Singulair 10 mg p.o. q.h.s. 10.Lopressor 25 mg p.o. b.i.d. 11.Magnesium oxide 250 mg p.o. b.i.d. 12.Claritin 10 mg p.o. daily p.r.n. 13.Restasis 1 drop b.i.d. 14.Lasix 40 mg p.o. t.i.d. 15.Flonase 2 sprays b.i.d. 16.Colace 100 mg q.i.d. 17.Flexeril 5 mg q.h.s. 18.Vitamin B12 2.5 mg p.o. daily. 19.Plavix 75 mg q.h.s. 20.Vitamin D3 2000 daily. 21.Symbicort 160/4.5 two puffs b.i.d. 22.Lipitor 40 mg q.h.s. 23.Ecotrin 81 mg p.o. 24.Vitamin C 1000 mg daily. 25.Ventolin 2.5 q.i.d. p.r.n. ALLERGIES: Are STATINS. FAMILY HISTORY: No history of heart disease or strokes in the family. SOCIAL HISTORY: Previous history of smoking. Occasional alcohol intake. REVIEW OF SYSTEMS: ENT: No diminished hearing or vision. CARDIOVASCULAR: As mentioned earlier. RESPIRATORY: As mentioned earlier. GI: As mentioned earlier. : No dysuria or retention. NERVOUS SYSTEM: No numbness or weakness. ALLERGY/IMMUNOLOGY: No asthma or hay fever. MUSCULOSKELETAL: As mentioned earlier. HEMATOLOGY: No history of anemia. ENDOCRINE: No history of diabetes or hypothyroidism. CONSTITUTIONAL: As mentioned earlier. DERMATOLOGY: Negative. RHEUMATOLOGY: Negative. PSYCHIATRY: As mentioned earlier. PHYSICAL EXAMINATION: Alert, oriented x3. The pulse is 77, blood pressure 120/69, respiration 18, temperature 99.4, pulse ox 94% on room air. HEENT: Conjunctivae normal. Oral mucosa moist. NECK: No jugular venous distention. No carotid bruit. No lymph node enlargement. CARDIOVASCULAR: S1, S2 muffled. RESPIRATORY: Breath sounds diminished in the bases. A few scattered rhonchi. No crackles. ABDOMEN: Soft, obese. No tenderness in the right upper quadrant. No guarding. No rigidity. No mass palpable. No ascites. Bowel sounds diminished. LEGS: No edema, no swelling. NERVOUS SYSTEM: Higher functions as mentioned, moves all 4 limbs. No focal motor sensory deficits. LYMPHATICS: No lymphadenopathy in the neck, axillae, groin. SKIN: No ulcer, rash or bleeding. LABS: WBC 13, hemoglobin 13.5, INR 2.6. Sodium 135, and AST is 233, ALT is 289, total bilirubin is 4 and alkaline phosphatase 277. ASSESSMENT: 1. Right upper quadrant abdominal pain, possibly acute cholelithiasis with cholecystitis. 2. Elevated bilirubin and enzymes, possible obstructive jaundice. 3. Hyponatremia. 4. Increased WBC. 5. History of chronic obstructive pulmonary disease. 6. Coumadin monitoring. 7. Gastroesophageal reflux disease. 8. Hyperlipidemia. 9. Degenerative joint disease. 10.History of prostate disorder. 11.Sleep apnea. 12.History of prostate cancer. 13.History of hiatal hernia. 14.History of coronary artery disease, stent. 15.History of peripheral vascular disease and bilateral femoral bypass surgery. 16.History of ETOH. 17.Remote history of nicotine dependence. RECOMMENDATIONS AND DISCUSSION: This 72-year-old gentleman who presented with multiple complex medical issues, will monitor the patient closely. Continue the current management, continue symptomatic treatment. Continue on broad-spectrum IV antibiotics. Surgical evaluation. Also recommend Cardiology consultation and monitor. Hold Coumadin for possible surgery. Otherwise, follow the cultures. Continue to monitor. DVT prophylaxis. Further recommendations to follow. Copy of dictation forwarded to Dr. Self, who is the primary physician. SHAHRAM / NILDAN: [id number] / DERRICK
[2017-09-12] MEDS: SYMBICORT 160-4.5 MCG INHALER INHALATION SCH (19:05)
[2017-09-12] MEDS: IPRATROPIUM 0.5 MG/2.5 ML NEBU INHALATION SCH (19:06)
[2017-09-12] MEDS: MORPHINE SULFATE 2 MG/ML SYRINGE IV PRN (20:08)
--- NOTE | 2017-09-12 20:24 | P.GSCN ---
History of Present Illness Consult date: 09/12/17 Reason for Consult: Acute cholecystitis History of present illness: CHIEF COMPLAINT: Acute cholecystitis HISTORY OF PRESENT ILLNESS: The patient is a 72 year old male with gastric and right upper quadrant abdominal pain for more than 3 days duration. His history significant for severe peripheral vascular occlusive disease as well as ischemic cardiomyopathy with recent stent placement requiring antiplatelet therapy. He had additional imaging including CT of the abdomen and pelvis that confirmed hydropic gallbladder and clinical features consistent with acute cholecystitis. He also had moderately elevated liver enzymes over 300s as well as elevated bilirubin levels. He denies any previous episodes. Secondary to these findings, Gen. surgery's consult. PAST MEDICAL HISTORY: See list. PAST SURGICAL HISTORY: See list. MEDICATIONS: See list. ALLERGIES: See list. SOCIAL HISTORY: No illicit drug use FAMILY HISTORY: No reports of Crohn's disease or inflammatory bowel disease. Has severe cardiac disease in family. REVIEW OF ORGAN SYSTEMS: CONSTITUTIONAL: No fevers or chills. Overweight more than 80+ pounds. HEENT: No troubles with vision or hearing. No reports of dysphagia. ENDOCRINE: No reports of thyroid disorders. No diabetes. CARDIOVASCULAR: No heart attack. No chest pain. History of cardiac stent placement including ischemic cardiomyopathy with recent antiplatelet therapy. Please see above. Has severe peripheral vascular occlusive disease. RESPIRATORY: Has asthma. No recent pneumonia. GASTROINTESTINAL: No reports of recent blood in stools. Has gastroesophageal reflux disease. NEURO: No reports of stroke or seizure disorders. PSYCH: No depression or suicidal ideation HEMATOLOGIC: Has easy bruising or bleeding. On chronic antiplatelet and anticoagulant therapy. LYMPHATIC: The patient denies any lumps and bumps around the neck. GENITOURINARY: Denies any blood in urine or increased urinary frequency. Previous history of prostate cancer. History of kidney stones. MUSCULOSKELETAL: Has back pain, stiffness and joint arthritis. PHYSICAL EXAM: VITAL SIGNS: Currently stable. GENERAL: Well-developed male in no acute distress. HEENT: No sclera icterus. Extraocular movements grossly intact. Moist buccal mucosa. Head is atraumatic, normocephalic. Hears conversational speech. No nasal drainage. NECK: Supple without lymphadenopathy. CHEST: Non-labored respirations and equal bilateral excursions. CARDIOVASCULAR: Regular rate with regular rhythm. Palpable 2+ radial pulses. ABDOMEN: Soft. Distended. Tender along the right upper quadrant without peritonitis. MUSCULOSKELETAL: No clubbing, cyanosis. Diffuse ecchymosis along the skin NEUROLOGIC: No focal or lateralizing signs. Cranial nerves II through XII grossly intact. PSYCH: Appropriate affect. Alert and oriented to person, place and time. SKIN: Well perfused upper extremities. Good skin turgor. LABS: Reviewed ASSESSMENT: 1. Acute cholecystitis with hydrops. 2. Elevated liver enzymes. 3. Ischemic cardiomyopathy. 4. Peripheral vascular occlusive disease. 5. Obesity due to excess calories, BMI 35.0 6. Chronic antiplatelet therapy 7. Chronic anticoagulant use PLAN: 1. Patient seen and evaluated. Patient has acute cholecystitis. 2. Will need Plavix and Coumadin held now for potential surgery on Sunday, September 17, 6 days from now. 3. Will need cardiac risk assessment. 4. May have low fat diet in the interim. 5. Patient is a high surgical risk for perioperative complications secondary to ischemic cardiomyopathy as well as peripheral vascular occlusive disease. We 'll monitor closely in the interim. Thank you for this kind consultation. Past Medical History Past Medical History: Cancer, Heart Failure, COPD, GERD/Reflux, Hyperlipidemia, Osteoarthritis (OA), Pneumonia, Prostate Disorder, Sleep Apnea/CPAP/BIPAP, Vascular Disorder Additional Past Medical History / Comment(s): Prostate cancer. see Dr Nguyễn H&P, O2 2L PRN, hiatal hernia, kidney stones, "bad back", past a fibcardiomyopathy aortic stenosis History of Any Multi-Drug Resistant Organisms: None Reported Past Surgical History: Bladder Surgery, Heart Catheterization With Stent, Hernia Repair, Tonsillectomy Additional Past Surgical History / Comment(s): CARDIOVERSION, MUKESH FEMORAL BYPASS SURGERY, MUKESH.inguinal hernia, UMBILICAL HERNIA REPAIR, surgery for PILONIDAL CYST, mukesh CATARACTS, ARCH/AORTOGRAM, cystoscopy for KIDNEY STONE REMOVAL x 3, LT CAROTID ENDARTECTOMY. BRAYDEN 05/10/1706/06 2 stents to the RCA Past Anesthesia/Blood Transfusion Reactions: No Reported Reaction Date of Last Stent Placement:: 06/06 Smoking Status: Former smoker - Past Family History Father Family Medical History: Liver Disease Mother Family Medical History: No Reported History Additional Family Medical History / Comment(s): . Medications and Allergies Home Medications Medication Instructions Recorded Confirmed Type Montelukast [Singulair] 10 mg PO HS 09/09/13 09/12/17 History Tamsulosin [Flomax] 0.4 mg PO QAM 09/09/13 09/12/17 History Spironolactone 25 mg PO BID 04/03/14 09/12/17 History Cholecalciferol [Vitamin D3] 2,000 unit PO DAILY 06/09/15 09/12/17 History cycloSPORINE [Restasis] 1 drop BOTH EYES BID 06/09/15 09/12/17 History Ascorbic Acid [Vitamin C] 1,000 mg PO DAILY 08/07/16 09/12/17 History Budesonide-Formot 160-4.5 Mcg 2 puff INHALATION RT-BID 08/07/16 09/12/17 History [Symbicort 160-4.5 Mcg Inhaler] Cyanocobalamin (Vitamin B-12) 2,500 mcg PO DAILY 08/07/16 09/12/17 History [Vitamin B-12] Fluticasone Nasal Hann[place]roix [Flonase 2 spr EA NOSTRIL BID 08/07/16 09/12/17 History Nasal [place]roix] Loratadine [Claritin] 10 mg PO DAILY PRN 08/07/16 09/12/17 History Magnesium Oxide [Mag-Ox] 250 mg PO BID 08/07/16 09/12/17 History Metoprolol Tartrate [Lopressor] 25 mg PO BID 08/07/16 09/12/17 History Pantoprazole Sodium [Protonix] 40 mg PO BID 08/07/16 09/12/17 History Tiotropium 18 Mcg/Puff [Spiriva] 1 cap INHALATION RT-HS 08/07/16 09/12/17 History Albuterol Nebulized [Ventolin 2.5 mg INHALATION RT-QID PRN 05/02/17 09/12/17 History Nebulized] Atorvastatin [Lipitor] 40 mg PO HS 05/02/17 09/12/17 History Cyclobenzaprine [Flexeril] 5 mg PO HS 05/02/17 09/12/17 History Solifenacin Succinate [Vesicare] 5 mg PO QAM 05/02/17 09/12/17 History Docusate [Colace] 100 mg PO QID 06/04/17 09/12/17 History Warfarin [Coumadin] 2.5 mg PO QUINN 06/04/17 09/12/17 History Nitroglycerin Sl Tabs [Nitrostat] 0.4 mg SUBLINGUAL Q5M PRN #25 tab 06/07/1709/24 Rx Furosemide [Lasix] 40 mg PO TID 06/20/17 09/12/17 History Potassium 198 mg PO DAILY 06/20/17 09/12/17 History Aspirin EC [Ecotrin Low Dose] 81 mg PO DAILY 09/12/17 09/12/17 History Clopidogrel [Plavix] 75 mg PO HS 09/12/17 09/12/17 History Warfarin [Coumadin] 3.75 mg PO [id number] 09/12/17 09/12/17 History Allergies Allergy/AdvReac Type Severity Reaction Status Date / Time [id number] Reductase Allergy Mild Rash/Hives Verified 09/17/17 17:30 Inhibitor Surgical - Exam Vital Signs Temp Pulse Resp BP Pulse Ox 99.4 F 77 18 120/69 95 09/12/17 14:35 09/12/17 14:35 09/12/17 14:35 09/12/17 14:35 09/12/17 14:35 Results - Labs 09/21/17 06:47 09/21/17 06:47 Abnormal Lab Results - Last 24 Hours (Table) 09/12/17 09/12/17 09/12/17 Range/Units 10:43 15:02 15:02 WBC 13.2 H (3.8-10.6) k/uL RBC 4.27 L (4.30-5.90) m/uL Neutrophils # 10.9 H (1.3-7.7) k/uL PT (9.0-12.0) sec INR (<1.2) APTT (22.0-30.0) sec Sodium 135 L (137-145) mmol/L Chloride 91 L (98-107) mmol/L BUN 21 H (9-20) mg/dL Total Bilirubin 4.0 H (0.2-1.3) mg/dL AST 233 H (17-59) U/L ALT 289 H (21-72) U/L Alkaline Phosphatase 277 H (38-126) U/L 09/12/17 Range/Units 15:02 WBC (3.8-10.6) k/uL RBC (4.30-5.90) m/uL Neutrophils # (1.3-7.7) k/uL PT 23.2 H (9.0-12.0) sec INR 2.6 H (<1.2) APTT 32.6 H (22.0-30.0) sec Sodium (137-145) mmol/L Chloride (98-107) mmol/L BUN (9-20) mg/dL Total Bilirubin (0.2-1.3) mg/dL AST (17-59) U/L ALT (21-72) U/L Alkaline Phosphatase (38-126) U/L Diabetes panel 09/12/17 09/12/17 Range/Units 10:43 15:02 Sodium 135 L (137-145) mmol/L Potassium 3.8 (3.5-5.1) mmol/L Chloride 91 L (98-107) mmol/L Carbon Dioxide 28 (22-30) mmol/L BUN 21 H 20 (9-20) mg/dL Creatinine 0.92 0.90 (0.66-1.25) mg/dL Glucose 83 (74-99) mg/dL Calcium 9.1 (8.4-10.2) mg/dL AST 233 H (17-59) U/L ALT 289 H (21-72) U/L Alkaline Phosphatase 277 H (38-126) U/L Total Protein 6.5 (6.3-8.2) g/dL Albumin 3.8 (3.5-5.0) g/dL Calcium panel 09/12/17 Range/Units 15:02 Calcium 9.1 (8.4-10.2) mg/dL Albumin 3.8 (3.5-5.0) g/dL Pituitary panel 09/12/17 09/12/17 Range/Units 10:43 15:02 Sodium 135 L (137-145) mmol/L Potassium 3.8 (3.5-5.1) mmol/L Chloride 91 L (98-107) mmol/L Carbon Dioxide 28 (22-30) mmol/L BUN 21 H 20 (9-20) mg/dL Creatinine 0.92 0.90 (0.66-1.25) mg/dL Glucose 83 (74-99) mg/dL Calcium 9.1 (8.4-10.2) mg/dL Adrenal panel 09/12/17 09/12/17 Range/Units 10:43 15:02 Sodium 135 L (137-145) mmol/L Potassium 3.8 (3.5-5.1) mmol/L Chloride 91 L (98-107) mmol/L Carbon Dioxide 28 (22-30) mmol/L BUN 21 H 20 (9-20) mg/dL Creatinine 0.92 0.90 (0.66-1.25) mg/dL Glucose 83 (74-99) mg/dL Calcium 9.1 (8.4-10.2) mg/dL Total Bilirubin 4.0 H (0.2-1.3) mg/dL AST 233 H (17-59) U/L ALT 289 H (21-72) U/L Alkaline Phosphatase 277 H (38-126) U/L Total Protein 6.5 (6.3-8.2) g/dL Albumin 3.8 (3.5-5.0) g/dL - Imaging CT scan - abdomen: report reviewed, image reviewed CT scan - pelvis: report reviewed, image reviewed (Hydrops of the gallbladder identified.) Assessment and Plan (1) Peripheral vascular occlusive disease Current Visit: Yes Status: Acute Code(s): I73.9 - PERIPHERAL VASCULAR DISEASE, UNSPECIFIED SNOMED Code(s): 914205687 (2) Acute cholecystitis Current Visit: Yes Status: Acute Code(s): K81.0 - ACUTE CHOLECYSTITIS SNOMED Code(s): 16971512 (3) CAD (coronary artery disease) Current Visit: Yes Status: Acute Code(s): I25.10 - ATHSCL HEART DISEASE OF [place] CORONARY ARTERY W/O ANG PCTRS SNOMED Code(s): 13505194 (4) Elevated liver enzymes Current Visit: Yes Status: Acute Code(s): R74.8 - ABNORMAL LEVELS OF OTHER SERUM ENZYMES SNOMED Code(s): 538138495 (5) Right upper quadrant abdominal pain Current Visit: Yes Status: Acute Code(s): R10.11 - RIGHT UPPER QUADRANT PAIN SNOMED Code(s): 540704808 (6) Warfarin-induced coagulopathy Current Visit: Yes Status: Acute Code(s): D68.32 - HEMORRHAGIC DISORD D/T EXTRINSIC CIRCULATING ANTICOAGULANTS; T45.515A - ADVERSE EFFECT OF ANTICOAGULANTS, INITIAL ENCOUNTER SNOMED Code(s): 60701651
[2017-09-12] MEDS ORDERED: CLOPIDOGREL 75 MG TAB PO SCH (21:00)
[2017-09-12] MEDS: CYCLOBENZAPRINE 5 MG TAB PO SCH (22:12)
[2017-09-12] MEDS: cycloSPORINE 0.05% OPHTH 0.4 ML DROPERETTE BOTH EYES SCH (22:12)
[2017-09-12] MEDS: ATORVASTATIN 40 MG TAB PO SCH (22:12)
[2017-09-12] MEDS: FLUTICASONE 50MCG/SPRAY NASAL 16GM EA NOSTRIL SCH (22:13)
[2017-09-12] MEDS: MAGNESIUM OXIDE 400 MG TAB PO SCH (22:13)
[2017-09-12] MEDS: METOPROLOL TARTRATE 25 MG TAB PO SCH (22:14)
[2017-09-12] MEDS: MONTELUKAST 10 MG TAB PO SCH (22:14)
[2017-09-12] MEDS: FUROSEMIDE 40 MG TAB PO SCH (22:15)
[2017-09-12] MEDS: SPIRONOLACTONE 25 MG TAB PO SCH (22:15)
[2017-09-12 23:16] LABS: Appearance,Urine Clear (Clear); Bilirubin,Urine 1+ (Negative); Blood,Urine Moderate (Negative); Color,Urine Yellow; Glucose,Urine (UA) Negative (Negative); Ketones,Urine Trace (Negative); Leukocyte Esterase,Urine Trace (Negative); Mucus,Urine Rare /hpf; Nitrite,Urine Negative (Negative); PH, Urine 5.5 (5.0-8.0); Protein,Urine 1+ (Negative); RBC,Urine 26 /hpf (0-5); Squamous Epithelial Cell,Urine <1 /hpf (0-4); Urobilinogen,Urine <2.0 mg/dL (<2.0); WBC,Urine 4 /hpf (0-5)
[2017-09-12 23:17] LABS: Specific Gravity,Urine 1.048 (1.001-1.035)
[2017-09-13] MEDS: PIPERACILLIN-TAZOBACTAM 3.375 GM in DEXTROSE/WATER 1 50ML.BAG IVPB SCH ×4 (01:18→23:04)
[2017-09-13] MEDS: MORPHINE SULFATE 2 MG/ML SYRINGE IV PRN ×3 (04:36→13:26)
[2017-09-13] MEDS: SYMBICORT 160-4.5 MCG INHALER INHALATION SCH ×2 (07:26→19:58)
[2017-09-13] MEDS: IPRATROPIUM 0.5 MG/2.5 ML NEBU INHALATION SCH ×4 (07:26→19:58)
[2017-09-13 07:46] LABS: INR 2.7 (<1.2); Prothrombin Time 23.8 sec (9.0-12.0)
[2017-09-13 08:01] LABS: Basophils % (A) 0 %; Eosinophils # (A) 0.1 k/uL (0-0.7); Eosinophils % (A) 1 %; HCT 37.8 % (39.0-53.0); HGB 12.5 gm/dL (13.0-17.5); Lymphocytes # (A) 0.9 k/uL (1.0-4.8); Lymphocytes % (A) 9 %; MCH 31.5 pg (25.0-35.0); MCHC 33.1 g/dL (31.0-37.0); MCV 95.1 fL (80.0-100.0); Mean Platelet Volume 7.1; Monocytes # (A) 0.6 k/uL (0-1.0); Monocytes % (A) 6 %; Neutrophils # (A) 8.5 k/uL (1.3-7.7); Neutrophils % (A) 83 %; Platelet Count 205 k/uL (150-450); RBC 3.97 m/uL (4.30-5.90); RDW 13.5 % (11.5-15.5); WBC 10.3 k/uL (3.8-10.6)
[2017-09-13 08:15] LABS: ALT 179 U/L (21-72); AST 102 U/L (17-59); Albumin 3.4 g/dL (3.5-5.0); Alkaline Phosphatase 208 U/L (38-126); Anion Gap 12 mmol/L; Blood Urea Nitrogen 22 mg/dL (9-20); Calcium 8.5 mg/dL (8.4-10.2); Carbon Dioxide 29 mmol/L (22-30); Chloride 96 mmol/L (98-107); Glucose 85 mg/dL (74-99); Potassium 4.1 mmol/L (3.5-5.1); Sodium 137 mmol/L (137-145); Total Protein 6.1 g/dL (6.3-8.2)
[2017-09-13] MEDS ORDERED: POTASSIUM 198 MG PO SCH (09:00)
[2017-09-13] MEDS: SPIRONOLACTONE 25 MG TAB PO SCH ×2 (09:08→21:24)
[2017-09-13] MEDS: FUROSEMIDE 40 MG TAB PO SCH ×3 (09:08→21:24)
[2017-09-13] MEDS: TAMSULOSIN 0.4 MG CAP.ER.24H PO SCH (09:08)
[2017-09-13] MEDS: ASPIRIN 81 MG PO SCH (09:08)
[2017-09-13] MEDS: ASCORBIC ACID 500 MG TAB PO SCH (09:08)
[2017-09-13] MEDS: METOPROLOL TARTRATE 25 MG TAB PO SCH (09:08)
[2017-09-13] MEDS: FLUTICASONE 50MCG/SPRAY NASAL 16GM EA NOSTRIL SCH ×2 (09:09→21:23)
[2017-09-13] MEDS: PANTOPRAZOLE 40 MG/10 ML VIAL IVP SCH (09:09)
[2017-09-13] MEDS: OXYBUTYNIN XL 5 MG TAB.ER.24 PO SCH (09:09)
[2017-09-13] MEDS: MAGNESIUM OXIDE 400 MG TAB PO SCH ×2 (09:09→21:23)
[2017-09-13] MEDS: cycloSPORINE 0.05% OPHTH 0.4 ML DROPERETTE BOTH EYES SCH ×2 (09:09→21:23)
[2017-09-13] MEDS: CHOLECALCIFEROL 1,000 UNIT TAB PO SCH (09:09)
--- NOTE | 2017-09-13 10:11 | P.CONS ---
History of Present Illness - Reason for Consult Consult date: 09/13/17 Obstructive jaundice Requesting physician: Nila Carrero - History of Present Illness 72-year-old male admitted with acute right upper quadrant abdominal pain jaundice and hematuria. Past medical history CAD PCI stent 2 months ago maintained on aspirin Plavix, A. fib maintained on warfarin, EtOH dependency, COPD, CHF, nephrolithiasis, and prostate cancer. Patient has been followed for about 5 years regarding his prostate cancer not requiring surgery or hormonal therapy. Pain is very sharp right upper quadrant darker colored urine over the last week denies acholic stools. No fever or chills. He drinks 3-4 alcohol liquor drinks daily has so for many years. Admission white count 13.2 presently 10.3. Hemoglobin 12.5. Platelet 205. INR 2.6 presently 2.7. Total bilirubin 4.0. AST 233. ALT 289. AP 277. Today total bilirubin 2.0. AST 102. ALT 179. AP 208. No history of jaundice or hepatitis. CT abdomen and pelvis reported extensive pericholecystic inflammatory fat surrounding was normal adjacent bowel thickening of the hepatic flexure. Biliary sludge or non-radiopaque A layering dependently within the gallbladder neck. CBD 8 mm. Gallbladder hydropic 11.7 cm. Left hepatic lobe cyst 8 mm. Remainder of liver grossly unremarkable. Findings compatible with acute cholecystitis with either biliary sludge or stones layering dependently within the neck. Review of medical records liver enzymes were within normal limits 1 year ago August 2016. Review of Systems Constitutional: Denies fever, chills, sweats, weight gain, or loss. HEENT: Negative for migraines, blurred vision or loss, earaches, drainage, tinnitus, oral mucosal lesions, dysphagia, or odynophagia. Cardiac: Negative for chest pain, arrhythmias, or palpitation. Respiratory: Negative for shortness of breath, hemoptysis, cough, or sputum production. Gastrointestinal: See HPI for pertinent findings. Genitourinary: Negative for hematuria, urgency, frequency, polyuria, dysuria, or penile discharge. Musculoskeletal: Negative for muscle aches, swelling, arthritis, and arthralgias. Neurologic: Negative for stroke or TIA. Endocrine: Negative for thyroid problems. Skin: Negative for rash or itching. Psychiatric: Negative history for depression and anxiety Past Medical History Past Medical History: Cancer, Heart Failure, COPD, GERD/Reflux, Hyperlipidemia, Osteoarthritis (OA), Pneumonia, Prostate Disorder, Sleep Apnea/CPAP/BIPAP, Vascular Disorder Additional Past Medical History / Comment(s): Prostate cancer. see Dr Nguyễn H&P, O2 2L PRN, hiatal hernia, kidney stones, "bad back", past a fibcardiomyopathy aortic stenosis History of Any Multi-Drug Resistant Organisms: None Reported Past Surgical History: Bladder Surgery, Heart Catheterization With Stent, Hernia Repair, Tonsillectomy Additional Past Surgical History / Comment(s): CARDIOVERSION, MUKESH FEMORAL BYPASS SURGERY, MUKESH.inguinal hernia, UMBILICAL HERNIA REPAIR, surgery for PILONIDAL CYST, mukesh CATARACTS, ARCH/AORTOGRAM, cystoscopy for KIDNEY STONE REMOVAL x 3, LT CAROTID ENDARTECTOMY. BRAYDEN 05/10/1706/06 2 stents to the RCA Past Anesthesia/Blood Transfusion Reactions: No Reported Reaction Date of Last Stent Placement:: 06/06 Smoking Status: Former smoker - Past Family History Father Family Medical History: Liver Disease Mother Family Medical History: No Reported History Additional Family Medical History / Comment(s): . Medications and Allergies Home Medications Medication Instructions Recorded Confirmed Type Montelukast [Singulair] 10 mg PO HS 09/09/13 09/12/17 History Tamsulosin [Flomax] 0.4 mg PO QAM 09/09/13 09/12/17 History Spironolactone 25 mg PO BID 04/03/14 09/12/17 History Cholecalciferol [Vitamin D3] 2,000 unit PO DAILY 06/09/15 09/12/17 History cycloSPORINE [Restasis] 1 drop BOTH EYES BID 06/09/15 09/12/17 History Ascorbic Acid [Vitamin C] 1,000 mg PO DAILY 08/07/16 09/12/17 History Budesonide-Formot 160-4.5 Mcg 2 puff INHALATION RT-BID 08/07/16 09/12/17 History [Symbicort 160-4.5 Mcg Inhaler] Cyanocobalamin (Vitamin B-12) 2,500 mcg PO DAILY 08/07/16 09/12/17 History [Vitamin B-12] Fluticasone Nasal [place] [Flonase 2 spr EA NOSTRIL BID 08/07/16 09/12/17 History Nasal [place]] Loratadine [Claritin] 10 mg PO DAILY PRN 08/07/16 09/12/17 History Magnesium Oxide [Mag-Ox] 250 mg PO BID 08/07/16 09/12/17 History Metoprolol Tartrate [Lopressor] 25 mg PO BID 08/07/16 09/12/17 History Pantoprazole Sodium [Protonix] 40 mg PO BID 08/07/16 09/12/17 History Tiotropium 18 Mcg/Puff [Spiriva] 1 cap INHALATION RT-HS 08/07/16 09/12/17 History Albuterol Nebulized [Ventolin 2.5 mg INHALATION RT-QID PRN 05/02/17 09/12/17 History Nebulized] Atorvastatin [Lipitor] 40 mg PO HS 05/02/17 09/12/17 History Cyclobenzaprine [Flexeril] 5 mg PO HS 05/02/17 09/12/17 History Solifenacin Succinate [Vesicare] 5 mg PO QAM 05/02/17 09/12/17 History Docusate [Colace] 100 mg PO QID 06/04/17 09/12/17 History Warfarin [Coumadin] 2.5 mg PO QUINN 06/04/17 09/12/17 History Nitroglycerin Sl Tabs [Nitrostat] 0.4 mg SUBLINGUAL Q5M PRN #25 tab 06/07/1709/24 Rx Furosemide [Lasix] 40 mg PO TID 06/20/17 09/12/17 History Potassium 198 mg PO DAILY 06/20/17 09/12/17 History Aspirin EC [Ecotrin Low Dose] 81 mg PO DAILY 09/12/17 09/12/17 History Clopidogrel [Plavix] 75 mg PO HS 09/12/17 09/12/17 History Warfarin [Coumadin] 3.75 mg PO [id number] 09/12/17 09/12/17 History Allergies Allergy/AdvReac Type Severity Reaction Status Date / Time Nwkldmu-Zsy-Ayp Reductase Allergy Mild Rash/Hives Verified 09/12/17 14:53 Inhibitor Physical Exam Vitals: Vital Signs Temp Pulse Pulse Resp BP BP Pulse Ox 09/13/17 07:37 77 16 09/13/17 07:30 97 09/13/17 07:27 76 16 09/13/17 07:00 97.3 F L 93 16 108/66 93 L 09/13/17 00:33 103/64 09/12/17 23:00 98.7 F 72 18 98/61 91 L 09/12/17 19:26 98.3 F 78 17 130/82 90 L 09/12/17 19:13 74 16 09/12/17 19:06 74 16 09/12/17 17:39 97.8 F 84 18 126/68 93 L 09/12/17 16:49 98.3 F 87 16 150/72 94 L 09/12/17 14:35 99.4 F 77 18 120/69 95 Intake and Output 09/12/17 09/13/17 09/13/17 22:59 06:59 14:59 Output Total 300 Balance -300 Output: Urine 300 Other: # Voids 1 General appearance: The patient is alert, oriented, in no acute distress. HET: Head is normocephalic and atraumatic. Pupils are equal and reactive. Oropharynx is clear without lesions. Neck: Supple without lymphadenopathy. Trachea midline. Heart: S1 S2. Lungs: No crackles or wheezes are heard. Abdomen: Soft, right upper quadrant tenderness, nondistended with bowel sounds. No peritoneal signs. No palpable organomegaly or masses. Extremities: Normal skin color and turgor. No cyanosis, rash, ulceration, clubbing, or edema. Radial and pedal pulses are 2/4 bilaterally. Neurological: No focal deficits. Strength and sensation are grossly intact. Results CBC & Chem 7: 09/13/17 07:06 09/13/17 07:06 Labs: Abnormal Lab Results - Last 24 Hours (Table) 09/12/17 09/12/17 09/12/17 Range/Units 10:43 15:02 15:02 WBC 13.2 H (3.8-10.6) k/uL RBC 4.27 L (4.30-5.90) m/uL Hgb (13.0-17.5) gm/dL Hct (39.0-53.0) % Neutrophils # 10.9 H (1.3-7.7) k/uL Lymphocytes # (1.0-4.8) k/uL PT (9.0-12.0) sec INR (<1.2) APTT (22.0-30.0) sec Sodium 135 L (137-145) mmol/L Chloride 91 L (98-107) mmol/L BUN 21 H (9-20) mg/dL Total Bilirubin 4.0 H (0.2-1.3) mg/dL AST 233 H (17-59) U/L ALT 289 H (21-72) U/L Alkaline Phosphatase 277 H (38-126) U/L Total Protein (6.3-8.2) g/dL Albumin (3.5-5.0) g/dL Ur Specific [place] (1.001-1.035) Urine Protein (Negative) Urine Ketones (Negative) Urine Blood (Negative) Urine Bilirubin (Negative) Ur Leukocyte Esterase (Negative) Urine RBC (0-5) /hpf Urine Mucus (None) /hpf 09/12/17 09/12/17 09/13/17 Range/Units 15:02 23:00 07:06 WBC (3.8-10.6) k/uL RBC 3.97 L (4.30-5.90) m/uL Hgb 12.5 L (13.0-17.5) gm/dL Hct 37.8 L (39.0-53.0) % Neutrophils # 8.5 H (1.3-7.7) k/uL Lymphocytes # 0.9 L (1.0-4.8) k/uL PT 23.2 H (9.0-12.0) sec INR 2.6 H (<1.2) APTT 32.6 H (22.0-30.0) sec Sodium (137-145) mmol/L Chloride (98-107) mmol/L BUN (9-20) mg/dL Total Bilirubin (0.2-1.3) mg/dL AST (17-59) U/L ALT (21-72) U/L Alkaline Phosphatase (38-126) U/L Total Protein (6.3-8.2) g/dL Albumin (3.5-5.0) g/dL Ur Specific [place] 1.048 H (1.001-1.035) Urine Protein 1+ H (Negative) Urine Ketones Trace H (Negative) Urine Blood Moderate H (Negative) Urine Bilirubin 1+ H (Negative) Ur Leukocyte Esterase Trace H (Negative) Urine RBC 26 H (0-5) /hpf Urine Mucus Rare H (None) /hpf 09/13/17 09/13/17 Range/Units 07:06 07:06 WBC (3.8-10.6) k/uL RBC (4.30-5.90) m/uL Hgb (13.0-17.5) gm/dL Hct (39.0-53.0) % Neutrophils # (1.3-7.7) k/uL Lymphocytes # (1.0-4.8) k/uL PT 23.8 H (9.0-12.0) sec INR 2.7 H (<1.2) APTT (22.0-30.0) sec Sodium (137-145) mmol/L Chloride 96 L (98-107) mmol/L BUN 22 H (9-20) mg/dL Total Bilirubin 2.0 H (0.2-1.3) mg/dL AST 102 H (17-59) U/L ALT 179 H (21-72) U/L Alkaline Phosphatase 208 H (38-126) U/L Total Protein 6.1 L (6.3-8.2) g/dL Albumin 3.4 L (3.5-5.0) g/dL Ur Specific [place] (1.001-1.035) Urine Protein (Negative) Urine Ketones (Negative) Urine Blood (Negative) Urine Bilirubin (Negative) Ur Leukocyte Esterase (Negative) Urine RBC (0-5) /hpf Urine Mucus (None) /hpf CT scan - abdomen: report reviewed (Dr. Carrion) Assessment and Plan (1) Elevated liver enzymes Narrative/Plan: 72-year-old male admitted with acute right upper quadrant abdominal pain elevated liver enzymes secondary to acute cholecystitis possible sludge possible cholelithiasis with underlying EtOH dependency. Underlying alcohol liver disease cannot be entirely excluded. Patient's elevated liver enzymes are improving and appear to be more related to acute inflammatory gallbladder response versus choledocholithiasis. Current Visit: Yes Status: Acute Code(s): R74.8 - ABNORMAL LEVELS OF OTHER SERUM ENZYMES SNOMED Code(s): 021775517 (2) Acute cholecystitis Current Visit: Yes Status: Acute Code(s): K81.0 - ACUTE CHOLECYSTITIS SNOMED Code(s): 29588969 (3) Right upper quadrant abdominal pain Current Visit: Yes Status: Acute Code(s): R10.11 - RIGHT UPPER QUADRANT PAIN SNOMED Code(s): 348701250 (4) EtOH dependence Current Visit: Yes Status: Acute Code(s): F10.20 - ALCOHOL DEPENDENCE, UNCOMPLICATED SNOMED Code(s): 70404642 (5) Atrial fibrillation Current Visit: Yes Status: Acute Code(s): I48.91 - UNSPECIFIED ATRIAL FIBRILLATION SNOMED Code(s): 21974741 (6) CAD (coronary artery disease) Current Visit: Yes Status: Acute Code(s): I25.10 - ATHSCL HEART DISEASE OF [place] CORONARY ARTERY W/O ANG PCTRS SNOMED Code(s): 38616788 (7) Prostate cancer Current Visit: Yes Status: Acute Code(s): C61 - MALIGNANT NEOPLASM OF PROSTATE SNOMED Code(s): 232383734 (8) Warfarin-induced coagulopathy Current Visit: Yes Status: Acute Code(s): D68.32 - HEMORRHAGIC DISORD D/T EXTRINSIC CIRCULATING ANTICOAGULANTS; T45.515A - ADVERSE EFFECT OF ANTICOAGULANTS, INITIAL ENCOUNTER SNOMED Code(s): 71470116 Plan: 1. General surgery following recommendations appreciated and noted. Surgery tentatively scheduled Sunday. 2. MRCP to rule out CBD stone. 3. Hepatitis screen. IV antibiotics. Hold anticoagulation. 4. Diet per surgery. ERCP contingent on clinical course and review of MRCP. Will follow closely with you. Thank you for this kind referral and the opportunity to participate in the care of your patient. This consultation was discussed with Dr. Carrion. The impression and plan of care have been directed as dictated.
[2017-09-13] MEDS: CYANOCOBALAMIN 500 MCG TAB PO SCH (10:27)
[2017-09-13] MEDS ORDERED: HYDROmorphone 0.5 MG/0.5 ML SYRINGE IVP PRN (11:35)
[2017-09-13] MEDS ORDERED: fentaNYL (PF) 50 MCG/ML 2 ML AMP IV PRN (11:35)
--- NOTE | 2017-09-13 13:21 | P.PN ---
<Geri Saeed - Last Filed: 09/13/17 13:00> Subjective Progress Note Date: 09/13/17 72-year-old male jaundice seen at bedside sitting up in bed. Recommendations from cardiology and GI service noted and appreciated. Plavix and Coumadin have been held. Plan is to tentatively schedule for laparoscopic cholecystectomy on the 17 of September. Patient initially was admitted to the emergency room with a chief complaint of abdominal pain. CAT scan done as an outpatient of the abdomen pelvis was done for part of the workup for the right side abdominal pain was advised by his PCP to come to the emergency room for the abnormal findings.. The CAT scan done of the abdomen pelvis report indicated there was evidence of acute cholecystitis. With either biliary sludge or non-radiographic stone within the gallbladder Patient stated continues to have right upper quadrant abdominal pain with jaundice. Also thought his urine had blood in it. Patients being followed by GI service as well is scheduled today for an MR CP to rule out common bile duct stone. Objective - Vital Signs Vital signs: Vital Signs Temp 97.3 F L 09/13/17 07:00 Pulse 67 09/13/17 10:45 Resp 16 09/13/17 10:45 BP 108/66 09/13/17 07:00 Pulse Ox 97 09/13/17 07:30 Intake & Output 09/12/17 09/13/17 09/13/17 18:59 06:59 18:59 Output Total 300 Balance -300 Weight 110.677 kg Output: Urine 300 Other: Voiding Method Toilet # Voids 1 - Exam Physical exam 72-year-old male jaundiced sitting up in bed reports continues to have abdominal discomfort Lungs adequate air movement bilaterally no shortness of breath Heart S1-S2 audible irregular denying chest pain Abdomen large in size firm reports having generalized diffuse abdominal discomfort more so on the right upper quadrant states passing gas no stool urinating no difficulty Extremities a trace pedal edema bilaterally - Labs CBC & Chem 7: 09/13/17 07:06 09/13/17 07:06 Labs: Abnormal Lab Results - Last 24 Hours (Table) 09/12/17 09/12/17 09/12/17 Range/Units 15:02 15:02 15:02 WBC 13.2 H (3.8-10.6) k/uL RBC 4.27 L (4.30-5.90) m/uL Hgb (13.0-17.5) gm/dL Hct (39.0-53.0) % Neutrophils # 10.9 H (1.3-7.7) k/uL Lymphocytes # (1.0-4.8) k/uL PT 23.2 H (9.0-12.0) sec INR 2.6 H (<1.2) APTT 32.6 H (22.0-30.0) sec Sodium 135 L (137-145) mmol/L Chloride 91 L (98-107) mmol/L BUN (9-20) mg/dL Total Bilirubin 4.0 H (0.2-1.3) mg/dL AST 233 H (17-59) U/L ALT 289 H (21-72) U/L Alkaline Phosphatase 277 H (38-126) U/L Total Protein (6.3-8.2) g/dL Albumin (3.5-5.0) g/dL Ur Specific [place] (1.001-1.035) Urine Protein (Negative) Urine Ketones (Negative) Urine Blood (Negative) Urine Bilirubin (Negative) Ur Leukocyte Esterase (Negative) Urine RBC (0-5) /hpf Urine Mucus (None) /hpf 09/12/17 09/13/17 09/13/17 Range/Units 23:00 07:06 07:06 WBC (3.8-10.6) k/uL RBC 3.97 L (4.30-5.90) m/uL Hgb 12.5 L (13.0-17.5) gm/dL Hct 37.8 L (39.0-53.0) % Neutrophils # 8.5 H (1.3-7.7) k/uL Lymphocytes # 0.9 L (1.0-4.8) k/uL PT (9.0-12.0) sec INR (<1.2) APTT (22.0-30.0) sec Sodium (137-145) mmol/L Chloride 96 L (98-107) mmol/L BUN 22 H (9-20) mg/dL Total Bilirubin 2.0 H (0.2-1.3) mg/dL AST 102 H (17-59) U/L ALT 179 H (21-72) U/L Alkaline Phosphatase 208 H (38-126) U/L Total Protein 6.1 L (6.3-8.2) g/dL Albumin 3.4 L (3.5-5.0) g/dL Ur Specific [place] 1.048 H (1.001-1.035) Urine Protein 1+ H (Negative) Urine Ketones Trace H (Negative) Urine Blood Moderate H (Negative) Urine Bilirubin 1+ H (Negative) Ur Leukocyte Esterase Trace H (Negative) Urine RBC 26 H (0-5) /hpf Urine Mucus Rare H (None) /hpf 09/13/17 Range/Units 07:06 WBC (3.8-10.6) k/uL RBC (4.30-5.90) m/uL Hgb (13.0-17.5) gm/dL Hct (39.0-53.0) % Neutrophils # (1.3-7.7) k/uL Lymphocytes # (1.0-4.8) k/uL PT 23.8 H (9.0-12.0) sec INR 2.7 H (<1.2) APTT (22.0-30.0) sec Sodium (137-145) mmol/L Chloride (98-107) mmol/L BUN (9-20) mg/dL Total Bilirubin (0.2-1.3) mg/dL AST (17-59) U/L ALT (21-72) U/L Alkaline Phosphatase (38-126) U/L Total Protein (6.3-8.2) g/dL Albumin (3.5-5.0) g/dL Ur Specific [place] (1.001-1.035) Urine Protein (Negative) Urine Ketones (Negative) Urine Blood (Negative) Urine Bilirubin (Negative) Ur Leukocyte Esterase (Negative) Urine RBC (0-5) /hpf Urine Mucus (None) /hpf Microbiology - Last 24 Hours (Table) 09/12/17 23:00 Urine Culture - Preliminary Urine,Voided Assessment and Plan Assessment: Impression Present on admission acute right upper quadrant abdominal pain with jaundice with elevated liver enzymes suspect due to acute cholecystitis with either biliary sludge or stones History of atrial fibrillation on anticoagulation Coumadin A recent May 2017 drug-eluting stent to the right coronary artery on aspirin Plavix Daily consumption of alcoholic beverages per patient report 2-3 daily Present on admission elevated liver enzymes with right upper quadrant abdominal pain suspect due to acute cholecystitis Known coronary artery disease with recent coronary stenting right coronary May 2017 Obesity BMI 35 History of prostate cancer Present on admission warfarin induced coagulopathy INR 2.6 on admission Plan Continue recommendations by GI service scheduled today for an MRCP with further recommendations pending results Plavix and Coumadin currently being held per cardiology's recommendations they will start IV heparin drip when the INR is less than 2 Pain control DVT and GI prophylaxis Follow up on the MRCP results Tentatively scheduled for surgery Sunday per Dr. Vanessa for a lap cholecystectomy if medically stable Monitor labs The above impression and plan of care have been discussed and directed by signing physician. Geri Saeed nurse practitioner acting as scribe for signing physician. <Mayda Morales N - Last Filed: 09/13/17 20:00> Objective - Vital Signs Vital signs: Vital Signs Temp 99.1 F 09/13/17 14:30 Pulse 66 09/13/17 19:59 Resp 16 09/13/17 14:30 BP 112/72 09/13/17 14:30 Pulse Ox 94 L 09/13/17 14:30 Intake & Output 09/13/17 09/13/17 09/14/17 06:59 18:59 06:59 Output Total 300 Balance -300 Output: Urine 300 Other: Voiding Method Toilet # Voids 1 4 - Labs CBC & Chem 7: 09/13/17 07:06 09/13/17 07:06 Labs: Abnormal Lab Results - Last 24 Hours (Table) 09/12/17 09/13/17 09/13/17 Range/Units 23:00 07:06 07:06 RBC 3.97 L (4.30-5.90) m/uL Hgb 12.5 L (13.0-17.5) gm/dL Hct 37.8 L (39.0-53.0) % Neutrophils # 8.5 H (1.3-7.7) k/uL Lymphocytes # 0.9 L (1.0-4.8) k/uL PT (9.0-12.0) sec INR (<1.2) Chloride 96 L (98-107) mmol/L BUN 22 H (9-20) mg/dL Total Bilirubin 2.0 H (0.2-1.3) mg/dL AST 102 H (17-59) U/L ALT 179 H (21-72) U/L Alkaline Phosphatase 208 H (38-126) U/L Total Protein 6.1 L (6.3-8.2) g/dL Albumin 3.4 L (3.5-5.0) g/dL Ur Specific [place] 1.048 H (1.001-1.035) Urine Protein 1+ H (Negative) Urine Ketones Trace H (Negative) Urine Blood Moderate H (Negative) Urine Bilirubin 1+ H (Negative) Ur Leukocyte Esterase Trace H (Negative) Urine RBC 26 H (0-5) /hpf Urine Mucus Rare H (None) /hpf 09/13/17 Range/Units 07:06 RBC (4.30-5.90) m/uL Hgb (13.0-17.5) gm/dL Hct (39.0-53.0) % Neutrophils # (1.3-7.7) k/uL Lymphocytes # (1.0-4.8) k/uL PT 23.8 H (9.0-12.0) sec INR 2.7 H (<1.2) Chloride (98-107) mmol/L BUN (9-20) mg/dL Total Bilirubin (0.2-1.3) mg/dL AST (17-59) U/L ALT (21-72) U/L Alkaline Phosphatase (38-126) U/L Total Protein (6.3-8.2) g/dL Albumin (3.5-5.0) g/dL Ur Specific [place] (1.001-1.035) Urine Protein (Negative) Urine Ketones (Negative) Urine Blood (Negative) Urine Bilirubin (Negative) Ur Leukocyte Esterase (Negative) Urine RBC (0-5) /hpf Urine Mucus (None) /hpf Microbiology - Last 24 Hours (Table) 09/12/17 23:00 Urine Culture - Preliminary Urine,Voided
[2017-09-13] MEDS: LACTATED RINGERS 1,000 ML IV SCH (14:57)
--- NOTE | 2017-09-13 15:14 | P.CRDCN ---
History of Present Illness History of present illness: Mr. Mccullough is a pleasant 72-year-old male past medical history significant for coronary artery disease s/p angioplasty 05/2017, aortic stenosis , chronic atrial fibrillation on custodial anticoagulation with coumadin, diastolic dysfunction, cardiomyopathy, COPD and dyslipidemia. He follows with Dr. Nguyễn in the office. He underwent BRAYDEN secondary to aortic stenosis in May which revealed a heavily calcified aortic valve with a valve area 0.8-0.9 and a mean gradient of 28. Following that he underwent cardiac catheterization to assess for coronary artery disease which revealed circumflex artery with a lesion of approximately 50-60% proximally and 40-50% in the midportion, significant stenosis of the RCA after the bifurcation. He underwent successful angioplasty of the RCA at that time. We've been asked to see him in consultation for pre-operative evaluation prior to cholecystectomy. He states for the previous month or so he's been feeling vague intermittent symptoms abdominal discomfort, nausea, abdominal distention and dark urine. He underwent a CT of his abdomen and pelvis per his primary care physician as an outpatient that revealed findings compatible with acute cholecystitis with biliary sludge or stones layering dependently within the gallbladder neck. He was sent to the hospital for evaluation and has been seen in consultation by GI service and surgery. GI is planning for an ERCP to assess for common bile duct obstruction and surgery is tentatively for Sunday at 2 PM. Coumadin and Plavix have been placed on hold since admission for pending surgery. At the time of my exam he is seen resting comfortably in a recliner in no acute distress. He states his pain is primarily under control at this time. His abdomen is significantly distended. He denies symptoms of chest pain, shortness of breath , dizziness, diaphoresis or palpitations. He also denies PND or orthopnea. Current cardiac medications include Coumadin, Aldactone 25 mg twice a day, Lopressor 25 mg twice a day, Lasix 40 mg 3 times a day, Plavix 75 mg daily, atorvastatin 40 mg daily and aspirin 81 mg daily. Laboratory data reviewed, hemoglobin 12.5, platelets 205, INR 2.7, sodium 137, potassium 4.1, creatinine 0.92, total bilirubin 2.0, AST 102, ALP 179, alk phos 208. Review of Systems At the time of my exam: CONSTITUTIONAL: Denies fever. Denies chills. EYES: Denies blurred vision. Denies vision changes. Denies eye pain. EARS, NOSE, MOUTH & THROAT: Denies headache. Denies sore throat. Denies ear pain. CARDIOVASCULAR: Denies chest pain. Denies shortness of breath. Denies orthopnea. Denies PND. Denies palpitations. RESPIRATORY: Denies cough. GASTROINTESTINAL: Complains of intermittent abdominal pain. Denies diarrhea. Denies constipation. Denies nausea. Denies vomiting. Complains of abdominal swelling. MUSCULOSKELETAL: Denies myalgias. INTEGUMENTARY: Denies pruitis. Denies rash. NEUROLOGIC: Denies numbness. Denies tingling. Denies weakness. PSYCHIATRIC: Denies anxiety. Denies depression. ENDOCRINE: Denies fatigue. Denies weight change. Denies polydipsia. Denies polyurina. GENITOURINARY: Denies burning or urgency with micturation. Complains of hematuria. HEMATOLOGIC: Denies history of anemia. Denies bleeding. Past Medical History Past Medical History: Cancer, Heart Failure, COPD, GERD/Reflux, Hyperlipidemia, Osteoarthritis (OA), Pneumonia, Prostate Disorder, Sleep Apnea/CPAP/BIPAP, Vascular Disorder Additional Past Medical History / Comment(s): Prostate cancer. see Dr Nguyễn H&P, O2 2L PRN, hiatal hernia, kidney stones, "bad back", past a fibcardiomyopathy aortic stenosis History of Any Multi-Drug Resistant Organisms: None Reported Past Surgical History: Bladder Surgery, Heart Catheterization With Stent, Hernia Repair, Tonsillectomy Additional Past Surgical History / Comment(s): CARDIOVERSION, MUKESH FEMORAL BYPASS SURGERY, MUKESH.inguinal hernia, UMBILICAL HERNIA REPAIR, surgery for PILONIDAL CYST, mukesh CATARACTS, ARCH/AORTOGRAM, cystoscopy for KIDNEY STONE REMOVAL x 3, LT CAROTID ENDARTECTOMY. BRAYDEN 05/10/1706/06 2 stents to the RCA Past Anesthesia/Blood Transfusion Reactions: No Reported Reaction Date of Last Stent Placement:: 06/06 Smoking Status: Former smoker - Past Family History Father Family Medical History: Liver Disease Mother Family Medical History: No Reported History Additional Family Medical History / Comment(s): . Medications and Allergies Home Medications Medication Instructions Recorded Confirmed Type Montelukast [Singulair] 10 mg PO HS 09/09/13 09/12/17 History Tamsulosin [Flomax] 0.4 mg PO QAM 09/09/13 09/12/17 History Spironolactone 25 mg PO BID 04/03/14 09/12/17 History Cholecalciferol [Vitamin D3] 2,000 unit PO DAILY 06/09/15 09/12/17 History cycloSPORINE [Restasis] 1 drop BOTH EYES BID 06/09/15 09/12/17 History Ascorbic Acid [Vitamin C] 1,000 mg PO DAILY 08/07/16 09/12/17 History Budesonide-Formot 160-4.5 Mcg 2 puff INHALATION RT-BID 08/07/16 09/12/17 History [Symbicort 160-4.5 Mcg Inhaler] Cyanocobalamin (Vitamin B-12) 2,500 mcg PO DAILY 08/07/16 09/12/17 History [Vitamin B-12] Fluticasone Nasal [place] [Flonase 2 spr EA NOSTRIL BID 08/07/16 09/12/17 History Nasal [place]] Loratadine [Claritin] 10 mg PO DAILY PRN 08/07/16 09/12/17 History Magnesium Oxide [Mag-Ox] 250 mg PO BID 08/07/16 09/12/17 History Metoprolol Tartrate [Lopressor] 25 mg PO BID 08/07/16 09/12/17 History Pantoprazole Sodium [Protonix] 40 mg PO BID 08/07/16 09/12/17 History Tiotropium 18 Mcg/Puff [Spiriva] 1 cap INHALATION RT-HS 08/07/16 09/12/17 History Albuterol Nebulized [Ventolin 2.5 mg INHALATION RT-QID PRN 05/02/17 09/12/17 History Nebulized] Atorvastatin [Lipitor] 40 mg PO HS 05/02/17 09/12/17 History Cyclobenzaprine [Flexeril] 5 mg PO HS 05/02/17 09/12/17 History Solifenacin Succinate [Vesicare] 5 mg PO QAM 05/02/17 09/12/17 History Docusate [Colace] 100 mg PO QID 06/04/17 09/12/17 History Warfarin [Coumadin] 2.5 mg PO QUINN 06/04/17 09/12/17 History Nitroglycerin Sl Tabs [Nitrostat] 0.4 mg SUBLINGUAL Q5M PRN #25 tab 06/07/1709/24 Rx Furosemide [Lasix] 40 mg PO TID 06/20/17 09/12/17 History Potassium 198 mg PO DAILY 06/20/17 09/12/17 History Aspirin EC [Ecotrin Low Dose] 81 mg PO DAILY 09/12/17 09/12/17 History Clopidogrel [Plavix] 75 mg PO HS 09/12/17 09/12/17 History Warfarin [Coumadin] 3.75 mg PO [id number] 09/12/17 09/12/17 History Allergies Allergy/AdvReac Type Severity Reaction Status Date / Time Slxazbf-Ejc-[id number] Reductase Allergy Mild Rash/Hives Verified 09/17/17 17:30 Inhibitor Physical Exam Vitals: Vital Signs Temp Pulse Pulse Resp BP BP Pulse Ox 09/13/17 14:30 99.1 F 64 16 112/72 94 L 09/13/17 10:45 67 16 09/13/17 10:36 64 16 09/13/17 07:37 77 16 09/13/17 07:30 97 09/13/17 07:27 76 16 09/13/17 07:00 97.3 F L 93 16 108/66 93 L 09/13/17 00:33 103/64 09/12/17 23:00 98.7 F 72 18 98/61 91 L 09/12/17 19:26 98.3 F 78 17 130/82 90 L 09/12/17 19:13 74 16 09/12/17 19:06 74 16 09/12/17 17:39 97.8 F 84 18 126/68 93 L 09/12/17 16:49 98.3 F 87 16 150/72 94 L Intake and Output 09/12/17 09/13/17 09/13/17 22:59 06:59 14:59 Output Total 300 Balance -300 Output: Urine 300 Other: Voiding Method Toilet # Voids 1 4 Blood pressure 112/72 heart rate 64 afebrile maintaining oxygen saturation on nasal cannula GENERAL: This is a 72-year-old male in no apparent distress at the time of my examination. HEENT: Head is atraumatic, normocephalic. Pupils are equal, round. Sclerae anicteric. Conjunctivae are clear. Mucous membranes of the mouth are moist. Neck is supple. There is no jugular venous distention. No carotid bruit is heard. LUNGS: Clear to auscultation no wheezes, rales or rhonchi. No chest wall tenderness is noted on palpation or with deep breathing. HEART: Irregular rate and rhythm with significant holosystolic murmur at all listening points, no rubs or gallops. S1 heard, S2 not heard. ABDOMEN: Tender right upper quadrant, distended. Bowel sounds are heard. EXTREMITIES: No evidence of peripheral edema and no calf tenderness noted. VASCULAR: Radial and dorsalis pedis pulses palpated, no evidence of clubbing. NEUROLOGIC: Patient is awake, alert and oriented x3. Results 09/18/17 06:49 09/18/17 06:49 Cardiac Enzymes 09/12/17 09/13/17 Range/Units 15:02 07:06 AST 233 H 102 H (17-59) U/L Coagulation 09/12/17 09/13/17 Range/Units 15:02 07:06 PT 23.2 H 23.8 H (9.0-12.0) sec APTT 32.6 H (22.0-30.0) sec CBC 09/12/17 09/13/17 Range/Units 15:02 07:06 WBC 13.2 H 10.3 (3.8-10.6) k/uL RBC 4.27 L 3.97 L (4.30-5.90) m/uL Hgb 13.5 12.5 L (13.0-17.5) gm/dL Hct 40.1 37.8 L (39.0-53.0) % Plt Count 216 205 (150-450) k/uL Comprehensive Metabolic Panel 09/12/17 09/13/17 Range/Units 15:02 07:06 Sodium 135 L 137 (137-145) mmol/L Potassium 3.8 4.1 (3.5-5.1) mmol/L Chloride 91 L 96 L (98-107) mmol/L Carbon Dioxide 28 29 (22-30) mmol/L BUN 20 22 H (9-20) mg/dL Creatinine 0.90 0.92 (0.66-1.25) mg/dL Glucose 83 85 (74-99) mg/dL Calcium 9.1 8.5 (8.4-10.2) mg/dL AST 233 H 102 H (17-59) U/L ALT 289 H 179 H (21-72) U/L Alkaline Phosphatase 277 H 208 H (38-126) U/L Total Protein 6.5 6.1 L (6.3-8.2) g/dL Albumin 3.8 3.4 L (3.5-5.0) g/dL Current Medications Generic Name Dose Route Start Last Admin Trade Name Agnes PRN Reason Stop Dose Admin Albuterol Sulfate 2.5 mg 09/12/17 17:05 Ventolin Nebulized INHALATION RT-QID PRN Shortness Of Breath Ascorbic Acid 1,000 mg 09/13/17 09:00 09/13/17 09:08 Vitamin C PO 1,000 mg DAILY [facility] Administration Aspirin 81 mg 09/13/17 09:00 09/13/17 09:08 Aspirin PO 81 mg DAILY [facility] Administration Atorvastatin Calcium 40 mg 09/12/17 21:00 09/12/17 22:12 Lipitor PO 40 mg HS [facility] Administration Budesonide/Formoterol Fumarate 2 puff 09/12/17 20:00 09/13/17 07:26 Symbicort 160-4.5 Mcg Inhaler INHALATION 2 puff RT-BID [facility] Administration Cholecalciferol 2,000 unit 09/13/17 09:00 09/13/17 09:09 Vitamin D3 PO 2,000 unit DAILY [facility] Administration Clopidogrel Bisulfate 75 mg 09/12/17 21:00 09/12/17 21:59 Plavix PO Not Given HS [facility] Cyanocobalamin 2,500 mcg 09/13/17 09:00 09/13/17 10:27 Vitamin B-12 PO 2,500 mcg DAILY [facility] Administration Cyclobenzaprine HCl 5 mg 09/12/17 21:00 09/12/17 22:12 Flexeril PO 5 mg HS [facility] Administration Cyclosporine 1 drops 09/12/17 21:00 09/13/17 09:09 Restasis 0.05% Ophth Soln BOTH EYES 1 drops BID [facility] Administration Fentanyl Citrate 50 mcg 09/13/17 11:35 Sublimaze IV 09/14/17 11:36 Q3M PRN Pain Control Fluticasone Propionate 2 spray 09/12/17 21:00 09/13/17 09:09 Flonase Nasal [place] EA NOSTRIL 2 spray BID [facility] Administration Furosemide 40 mg 09/12/17 22:00 09/13/17 09:08 Lasix PO 40 mg TID [facility] Administration Hydromorphone HCl 0.5 mg 09/13/17 11:35 Dilaudid IVP 09/14/17 11:36 Q5M PRN Pain Control Piperacillin/Tazobactam/ 50 mls @ 12.5 mls/hr 09/13/17 00:00 09/13/17 09:07 Dextrose 3.375 gm/ IV Solution IVPB 12.5 mls/hr Q8HR [facility] Administration Lactated Ringer's 1,000 mls @ 20 mls/hr 09/13/17 11:45 Lactated Ringers IV .Q24H [facility] Ipratropium [place] 0.5 mg 09/12/17 20:00 09/13/17 10:36 Atrovent Nebulized INHALATION 0.5 mg RT-QID [facility] Administration Loratadine 10 mg 09/12/17 17:05 Claritin PO DAILY PRN Allergy Symptoms Lorazepam 1 mg 09/12/17 17:07 Ativan PO Q6HR PRN Anxiety Magnesium Oxide 200 mg 09/12/17 21:00 09/13/17 09:09 Mag-Ox PO 200 mg BID [facility] Administration Metoprolol Tartrate 12.5 mg 09/13/17 21:00 Lopressor PO BID [facility] Montelukast Sodium 10 mg 09/12/17 21:00 09/12/17 22:14 Singulair PO 10 mg HS [facility] Administration Morphine Sulfate 4 mg 09/12/17 16:10 09/13/17 13:26 Morphine Sulfate (Inj) IV 4 mg Q4HR PRN Administration Severe Pain Naloxone HCl 0.2 mg 09/12/17 16:10 Narcan IV Q2M PRN Opioid Reversal Nitroglycerin 0.4 mg 09/12/17 17:05 Nitrostat SUBLINGUAL Q5M PRN Chest Pain Ondansetron HCl 4 mg 09/12/17 16:10 Zofran IVP Q8HR PRN Nausea And Vomiting Oxybutynin Chloride 10 mg 09/13/17 09:00 09/13/17 09:09 Ditropan Xl PO 10 mg QAM [facility] Administration Pantoprazole Sodium 40 mg 09/13/17 09:00 09/13/17 09:09 Protonix IVP 40 mg DAILY [facility] Administration Spironolactone 25 mg 09/12/17 21:00 09/13/17 09:08 Aldactone PO 25 mg BID [facility] Administration Tamsulosin HCl 0.4 mg 09/13/17 09:00 09/13/17 09:08 Flomax PO 0.4 mg QAM [facility] Administration Tramadol HCl 50 mg 09/13/17 14:31 Ultram PO QID PRN Breakthrough Pain Intake and Output 09/12/17 09/13/17 09/13/17 22:59 06:59 14:59 Output Total 300 Balance -300 Output: Urine 300 Other: Voiding Method Toilet # Voids 1 4 09/13/17 07:06 09/13/17 07:06 Assessment and Plan Assessment: ASSESSMENT 1. Acute cholecystitis 2. Elevated liver enzymes 3. Coronary artery disease with recent angioplasty of RCA and mild disease of circumflex artery 4. Moderate-severe aortic stenosis 5. 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 Hypertension 7. Chronic diastolic heart failure, currently euvolemic 8. Chronic daily alcohol intake PLAN Repeat 2D echocardiogram and doppler study to assess cardiac structure and function. Daily PT/INR. Once INR below 2, initiate on heparin infusion for protection of embolic event as well as platelet inhibition. Hold plavix for 5 days prior to surgery. Continue aspirin, Aldactone, Lopressor, Lasix and atorvastatin at home doses. Further recommendations to follow based on clinical course. Thank you kindly for this consultation. Nurse Practitioner note has been reviewed, I agree with a documented findings and plan of care. Patient was seen and examined.
--- NOTE | 2017-09-13 16:20 | PN ---
PROGRESS NOTE DATE OF SERVICE: 09/13/2017. INTERVAL HISTORY: This 72-year-old gentleman who was admitted with right upper quadrant abdominal pain with possible acute cholelithiasis and cholecystitis, is being closely monitored. Surgery and Gastroenterology are following the patient closely. MRCP is recommended. No chest pain. No palpitations. No fever. PHYSICAL EXAM: Alert and oriented x3. Pulse 77, blood pressure 108/60, respirations 16, temperature 97.2, pulse ox 93% on room air. HEENT: Conjunctivae normal. Oral mucosa moist. Neck is no jugular venous distention. No carotid bruit. No lymph node enlargement. CARDIOVASCULAR: S1, S2 muffled. RESPIRATORY: Breath sounds diminished in the bases. No rhonchi, no crackles. ABDOMEN: Soft, obese, mild diffuse tenderness present on the right upper quadrant. LEGS: No edema. NERVOUS SYSTEM: No focal deficits. LABS: At this time shows WBC 10.2, hemoglobin 12.5, INR 2.7. LFTs are noted. ASSESSMENT: 1. Right upper quadrant abdominal pain possible acute cholelithiasis with cholecystitis. 2. Elevated bilirubin enzymes, hepatic enzymes, possible obstructive jaundice. 3. Hyponatremia. 4. Increased WBC. 5. History of chronic obstructive pulmonary disease. 6. Coumadin monitoring. 7. Gastroesophageal reflux disease. 8. Hyperlipidemia. 9. Degenerative joint disease. 10.History of prostate disorder. 11.History of sleep apnea. 12.History of prostate cancer. 13.History of hiatal hernia. 14.History of coronary artery disease and stent. 15.History of peripheral vascular disease and bilateral femoral bypass surgery. 16.History of ETOH. 17.Remote history of nicotine dependence. RECOMMENDATIONS AND DISCUSSION: I recommend to continue current management and symptomatic treatment. At this time, I recommend repeat labs. Closely follow with Surgery, Cardiology. Hold anticoagulants. Guarded prognosis. Further recommendations to follow. MMODL / IJN: [id number] /
[2017-09-13] MEDS: traMADol 50 MG TAB PO PRN (16:53)
[2017-09-13] MEDS: ATORVASTATIN 40 MG TAB PO SCH (21:22)
[2017-09-13] MEDS: CYCLOBENZAPRINE 5 MG TAB PO SCH (21:23)
[2017-09-13] MEDS: MONTELUKAST 10 MG TAB PO SCH (21:24)
[2017-09-13] MEDS: METOPROLOL TARTRATE 12.5 MG TAB PO SCH (21:25)
[2017-09-14] MEDS: MORPHINE SULFATE 2 MG/ML SYRINGE IV PRN ×2 (07:07→17:47)
[2017-09-14] MEDS: SYMBICORT 160-4.5 MCG INHALER INHALATION SCH ×2 (07:39→19:17)
[2017-09-14] MEDS: IPRATROPIUM 0.5 MG/2.5 ML NEBU INHALATION SCH ×4 (07:39→19:17)
[2017-09-14 08:11] LABS: INR 2.2 (<1.2); Prothrombin Time 19.8 sec (9.0-12.0)
--- NOTE | 2017-09-14 08:13 | P.PN ---
<Geri Saeed - Last Filed: 09/14/17 08:05> Subjective Progress Note Date: 09/14/17 72-year-old male seen at bedside this morning. Less jaundiced this morning labs are pending reports still having abdominal discomfort unchanged denies chest pain or shortness of breath no dizziness or lightheadedness Coumadin and Plavix have been on hold current telemetry shows sinus rhythm cardiology following patient was not able to have an MRCP done yesterday due to body habitus abdominal distention prohibited the exam Objective - Vital Signs Vital signs: Vital Signs Temp 99.3 F 09/14/17 01:20 Pulse 68 09/14/17 07:49 Resp 16 09/14/17 01:20 BP 104/69 09/14/17 01:20 Pulse Ox 95 09/14/17 07:39 Intake & Output 09/13/17 09/14/17 09/14/17 18:59 06:59 18:59 Intake Total 550 Output Total 900 Balance -350 Intake: Intake, IV Titration 50 Amount Piperacillin-Tazobactam 3 50 .375 gm In Dextrose/Water 1 50ml.bag @ 12.5 mls/hr IVPB Q8HR [facility] Rx#: [id number] Oral 500 Output: Urine 900 Other: Voiding Method Toilet Toilet # Voids 4 2 - Exam Physical exam 72-year-old male less jaundiced sitting up in bed reports continues to have abdominal discomfort Lungs adequate air movement bilaterally no shortness of breath respiratory treatment and progress Heart S1-S2 audible irregular telemetry shows sinus with PACs denying chest pain Abdomen large in size firm reports having generalized diffuse abdominal discomfort more so on the right upper quadrant states passing gas no stool urinating no difficulty reports no nausea vomiting Extremities a trace pedal edema bilaterally - Labs CBC & Chem 7: 09/13/17 07:06 09/13/17 07:06 Labs: Abnormal Lab Results - Last 24 Hours (Table) 09/13/17 09/13/17 Range/Units 07:06 07:06 RBC 3.97 L (4.30-5.90) m/uL Hgb 12.5 L (13.0-17.5) gm/dL Hct 37.8 L (39.0-53.0) % Neutrophils # 8.5 H (1.3-7.7) k/uL Lymphocytes # 0.9 L (1.0-4.8) k/uL Chloride 96 L (98-107) mmol/L BUN 22 H (9-20) mg/dL Total Bilirubin 2.0 H (0.2-1.3) mg/dL AST 102 H (17-59) U/L ALT 179 H (21-72) U/L Alkaline Phosphatase 208 H (38-126) U/L Total Protein 6.1 L (6.3-8.2) g/dL Albumin 3.4 L (3.5-5.0) g/dL Microbiology - Last 24 Hours (Table) 09/12/17 18:44 Blood Culture - Preliminary Blood No Growth after 24 hours 09/12/17 23:00 Urine Culture - Preliminary Urine,Voided Assessment and Plan Assessment: Impression Present on admission acute right upper quadrant abdominal pain with jaundice with elevated liver enzymes suspect due to acute cholecystitis with either biliary sludge or stones History of atrial fibrillation on anticoagulation Coumadin A recent May 2017 drug-eluting stent to the right coronary artery on aspirin Plavix Daily consumption of alcoholic beverages per patient report 2-3 daily Present on admission elevated liver enzymes with right upper quadrant abdominal pain suspect due to acute cholecystitis Known coronary artery disease with recent coronary stenting right coronary May 2017 Obesity BMI 35 History of prostate cancer Present on admission warfarin induced coagulopathy INR 2.6 on admission Plan IV Zosyn as ordered Plavix and Coumadin currently being held per cardiology's recommendations they will start IV heparin drip when the INR is less than 2 Pain control DVT and GI prophylaxis Follow-up on pending labs Tentatively scheduled for surgery Sunday per Dr. Vanessa for a lap cholecystectomy if medically stable Await further recommendations GI service Echocardiogram pending The above impression and plan of care have been discussed and directed by signing physician. Geri Saeed nurse practitioner acting as scribe for signing physician. <Mayda Morales N - Last Filed: 09/14/17 15:07> Objective - Vital Signs Vital signs: Vital Signs Temp 98.8 F 09/14/17 14:31 Pulse 72 09/14/17 14:31 Resp 17 09/14/17 14:31 BP 94/59 09/14/17 14:31 Pulse Ox 95 09/14/17 14:31 Intake & Output 09/13/17 09/14/17 09/14/17 18:59 06:59 18:59 Intake Total 550 160 Output Total 900 Balance -350 160 Intake: Intake, IV Titration 50 160 Amount Lactated Ringers 1,000 ml 160 @ 20 mls/hr IV .Q24H [facility] Rx#:[id number] Piperacillin-Tazobactam 3 50 .375 gm In Dextrose/Water 1 50ml.bag @ 12.5 mls/hr IVPB Q8HR [facility] Rx#: [id number] Oral 500 Output: Urine 900 Other: Voiding Method Toilet Toilet Toilet # Voids 4 2 2 - Labs CBC & Chem 7: 09/13/17 07:06 09/14/17 07:16 Labs: Abnormal Lab Results - Last 24 Hours (Table) 09/14/17 09/14/17 Range/Units 07:16 07:16 PT 19.8 H (9.0-12.0) sec INR 2.2 H (<1.2) Sodium 134 L (137-145) mmol/L Chloride 92 L (98-107) mmol/L Carbon Dioxide 31 H (22-30) mmol/L AST 62 H (17-59) U/L ALT 129 H (21-72) U/L Alkaline Phosphatase 170 H (38-126) U/L Total Protein 6.2 L (6.3-8.2) g/dL Microbiology - Last 24 Hours (Table) 09/12/17 23:00 Urine Culture - Final Urine,Voided 09/12/17 18:44 Blood Culture - Preliminary Blood No Growth after 24 hours
[2017-09-14 09:01] LABS: ALT 129 U/L (21-72); AST 62 U/L (17-59); Albumin 3.5 g/dL (3.5-5.0); Alkaline Phosphatase 170 U/L (38-126); Anion Gap 11 mmol/L; Blood Urea Nitrogen 16 mg/dL (9-20); Calcium 8.6 mg/dL (8.4-10.2); Carbon Dioxide 31 mmol/L (22-30); Chloride 92 mmol/L (98-107); Glucose 99 mg/dL (74-99); Sodium 134 mmol/L (137-145); Total Bilirubin 0.9 mg/dL (0.2-1.3); Total Protein 6.2 g/dL (6.3-8.2)
[2017-09-14] MEDS: FLUTICASONE 50MCG/SPRAY NASAL 16GM EA NOSTRIL SCH ×2 (09:04→21:44)
[2017-09-14] MEDS: SPIRONOLACTONE 25 MG TAB PO SCH ×2 (09:05→21:45)
[2017-09-14] MEDS: cycloSPORINE 0.05% OPHTH 0.4 ML DROPERETTE BOTH EYES SCH ×2 (09:05→21:44)
[2017-09-14] MEDS: PANTOPRAZOLE 40 MG/10 ML VIAL IVP SCH (09:05)
[2017-09-14] MEDS: OXYBUTYNIN XL 5 MG TAB.ER.24 PO SCH (09:06)
[2017-09-14] MEDS: CYANOCOBALAMIN 500 MCG TAB PO SCH (09:06)
[2017-09-14] MEDS: TAMSULOSIN 0.4 MG CAP.ER.24H PO SCH (09:06)
[2017-09-14] MEDS: METOPROLOL TARTRATE 12.5 MG TAB PO SCH ×2 (09:06→21:45)
[2017-09-14] MEDS: ASPIRIN 81 MG PO SCH (09:06)
[2017-09-14] MEDS: FUROSEMIDE 40 MG TAB PO SCH ×3 (09:06→16:01)
[2017-09-14] MEDS: ASCORBIC ACID 500 MG TAB PO SCH (09:06)
[2017-09-14] MEDS: MAGNESIUM OXIDE 400 MG TAB PO SCH ×2 (09:07→21:44)
[2017-09-14] MEDS: CHOLECALCIFEROL 1,000 UNIT TAB PO SCH (09:07)
--- NOTE | 2017-09-14 09:17 | P.PN ---
Subjective Progress Note Date: 09/14/17 Principal diagnosis: Acute cholecystitis LFTs much improved bilirubin normalized. MRCP unable to be performed secondary to body habitus. Still reports right upper quadrant abdominal pain. INR decreased to 2.2. Afebrile. Objective - Vital Signs Vital signs: Vital Signs Temp 99.1 F 09/14/17 07:00 Pulse 68 09/14/17 07:49 Resp 14 09/14/17 07:00 BP 121/86 09/14/17 07:00 Pulse Ox 95 09/14/17 07:39 Intake & Output 09/13/17 09/14/17 09/14/17 18:59 06:59 18:59 Intake Total 550 Output Total 900 Balance -350 Intake: Intake, IV Titration 50 Amount Piperacillin-Tazobactam 3 50 .375 gm In Dextrose/Water 1 50ml.bag @ 12.5 mls/hr IVPB Q8HR [facility] Rx#: [id number] Oral 500 Output: Urine 900 Other: Voiding Method Toilet Toilet # Voids 4 2 - Exam General appearance: The patient is alert, oriented, in no acute distress. HET: Head is normocephalic and atraumatic. Pupils are equal and reactive. Oropharynx is clear without lesions. Neck: Supple without lymphadenopathy. Trachea midline. Heart: S1 S2. Regular rate and rhythm. Lungs: No crackles or wheezes are heard. Abdomen: Soft, right upper quadrant tenderness, nondistended with bowel sounds. No peritoneal signs. No palpable organomegaly or masses. Extremities: Normal skin color and turgor. No cyanosis, rash, ulceration, clubbing, or edema. Radial and pedal pulses are 2/4 bilaterally. Neurological: No focal deficits. Strength and sensation are grossly intact. - Labs CBC & Chem 7: 09/13/17 07:06 09/14/17 07:16 Labs: Abnormal Lab Results - Last 24 Hours (Table) 09/14/17 09/14/17 Range/Units 07:16 07:16 PT 19.8 H (9.0-12.0) sec INR 2.2 H (<1.2) Sodium 134 L (137-145) mmol/L Chloride 92 L (98-107) mmol/L Carbon Dioxide 31 H (22-30) mmol/L AST 62 H (17-59) U/L ALT 129 H (21-72) U/L Alkaline Phosphatase 170 H (38-126) U/L Total Protein 6.2 L (6.3-8.2) g/dL Microbiology - Last 24 Hours (Table) 09/12/17 18:44 Blood Culture - Preliminary Blood No Growth after 24 hours 09/12/17 23:00 Urine Culture - Preliminary Urine,Voided Assessment and Plan (1) Elevated liver enzymes Narrative/Plan: 72-year-old male admitted with acute right upper quadrant abdominal pain elevated liver enzymes secondary to acute cholecystitis possible sludge possible cholelithiasis with underlying EtOH dependency. Liver enzymes are improving bilirubin has normalized. Underlying alcohol liver disease cannot be entirely excluded. Elevated liver enzymes most likely related to acute inflammatory gallbladder response versus choledocholithiasis however passage of choledocholithiasis cannot be entirely excluded Current Visit: Yes Status: Acute Code(s): R74.8 - ABNORMAL LEVELS OF OTHER SERUM ENZYMES SNOMED Code(s): 974242600 (2) Acute cholecystitis Current Visit: Yes Status: Acute Code(s): K81.0 - ACUTE CHOLECYSTITIS SNOMED Code(s): 48485182 (3) Right upper quadrant abdominal pain Current Visit: Yes Status: Acute Code(s): R10.11 - RIGHT UPPER QUADRANT PAIN SNOMED Code(s): 561206428 (4) EtOH dependence Current Visit: Yes Status: Acute Code(s): F10.20 - ALCOHOL DEPENDENCE, UNCOMPLICATED SNOMED Code(s): 32962856 (5) Atrial fibrillation Current Visit: Yes Status: Acute Code(s): I48.91 - UNSPECIFIED ATRIAL FIBRILLATION SNOMED Code(s): 81993815 (6) CAD (coronary artery disease) Current Visit: Yes Status: Acute Code(s): I25.10 - ATHSCL HEART DISEASE OF [place] CORONARY ARTERY W/O ANG PCTRS SNOMED Code(s): 47298995 (7) Prostate cancer Current Visit: Yes Status: Acute Code(s): C61 - MALIGNANT NEOPLASM OF PROSTATE SNOMED Code(s): 046812611 (8) Warfarin-induced coagulopathy Current Visit: Yes Status: Acute Code(s): D68.32 - HEMORRHAGIC DISORD D/T EXTRINSIC CIRCULATING ANTICOAGULANTS; T45.515A - ADVERSE EFFECT OF ANTICOAGULANTS, INITIAL ENCOUNTER SNOMED Code(s): 88305006 Plan: 1. Hepatitis screen requested. CMP in a.m. ERCP not planned at this time but contingent on clinical course. OR scheduled for Sunday. We'll continue to follow with you. Diet per surgery. Assessment and plan a care discussed with Dr. Carrion
--- NOTE | 2017-09-14 09:56 | ECHOF ---
Referral Reason:pre-surgery MEASUREMENTS -------- HEIGHT: 180.3 cm WEIGHT: 110.7 kg BP: 103/66 RVIDd: 3.5 cm (< 3.3) IVSd: 1.0 cm (0.6 - 1.1) LVIDd: 5.2 cm (3.9 - 5.3) LVPWd: 1.3 cm (0.6 - 1.1) IVSs: 1.8 cm LVIDs: 2.8 cm LVPWs: 2.3 cm LAESV Index (A-L): 37.54 ml/m Ao Diam: 3.5 cm (2.0 - 3.7) AV Cusp: 1.4 cm (1.5 - 2.6) LA Diam: 3.1 cm (2.7 - 3.8) MV E Chevy: 1.61 m/s MV DecT: 315 ms MV A Chevy: 0.55 m/s MV E/A Ratio: 2.93 AV maxP.27 mmHg AV meanP.85 mmHg RAP: 5.00 mmHg RVSP: 59.73 mmHg FINDINGS -------- Sinus rhythm. This was a technically good study. The left ventricular size is normal. There is mild concentric left ventricular hypertrophy. Overa ll left ventricular systolic function is low-normal with, an EF between 50 - 55 %. Mitral Doppler i nflow pattern suggests diastolic filling abnormality 22.24. The right ventricle is mildly enlarged. The left atrium is normal in size. Aortic valve is trileaflet and is severely thickened. Trace amount of aortic regurgitation. Ther e is severe aortic stenosis present. Peak/mean gradient across the Aortic Valve is 77.27mmHg / 43.8 5mmHg. The mitral valve leaflets are mildly thickened. Mild mitral regurgitation is present. The peak a nd mean MV gradients are 14.09mmHg 3.70mmHg as measured by doppler. Cznu-im-slhbppmc mitral stenosi s. Mild tricuspid regurgitation present. There is moderate pulmonary hypertension. The right ventric ular systolic pressure, as measured by Doppler, is 59.73mmHg. Pulmonic valve appears structurally normal. The aortic root size is normal. Normal inferior vena cava with normal inspiratory collapse consistent with estimated right atrial pre ssure of 5 mmHg. The pericardium is normal. CONCLUSIONS -------- 1. Sinus rhythm. 2. This was a technically good study. 3. The left ventricular size is normal. 4. There is mild concentric left ventricular hypertrophy. 5. Overall left ventricular systolic function is low-normal with, an EF between 50 - 55 %. 6. Mitral Doppler inflow pattern suggest diastolic filling abnormality 22.24. 7. The right ventricle is mildly enlarged. 8. The left atrium is normal in size. 9. Aortic valve is trileaflet and is severely thickened. 10. Trace amount of aortic regurgitation. 11. There is severe aortic stenosis present. 12. Peak/mean gradient across the Aortic Valve is 77.27mmHg / 43.85mmHg. 13. The mitral valve leaflets are mildly thickened. 14. Mild mitral regurgitation is present. 15. The peak and mean MV gradients are 14.09mmHg 3.70mmHg as measured by doppler. 16. Ucys-my-hudzukym mitral stenosis. 17. Mild tricuspid regurgitation present. 18. There is moderate pulmonary hypertension. 19. The right ventricular systolic pressure, as measured by Doppler, is 59.73mmHg. 20. Pulmonic valve appears structurally normal. 21. The aortic root size is normal. 22. Normal inferior vena cava with normal inspiratory collapse consistent with estimated right atrial pressure of 5 mmHg. 23. The pericardium is normal. MANUFACTURING INSPECTOR: Lizet Caro RDCS
[2017-09-14] MEDS: PIPERACILLIN-TAZOBACTAM 3.375 GM in DEXTROSE/WATER 1 50ML.BAG IVPB SCH ×3 (10:21→23:23)
[2017-09-14] MEDS: traMADol 50 MG TAB PO PRN ×2 (11:55→23:16)
--- NOTE | 2017-09-14 12:37 | CDI ---
Last Revision, March 2017 Documentation Clarification Form Date: 09/14/17 From: Nata Magaña RN Admit Date: 09/12/2017 4:39:00 PM Patient Name: Mau Mccullough V Visit Number: [id number] ATTENTION: The Clinical Documentation Specialists (CDI) and [facility] Coding Staff appreciate your assistance in clarifying documentation. Please respond to the clarification below the line at the bottom and electronically sign. The CDI & [facility] Coding staff will review the response and follow-up if needed. Please note: Queries are made part of the Legal Health Record. If you have any questions, please contact the author of this message via ITS. Dr. Keshawn Richards, Heart Failure is chart in the consult note dated 09/13, specificity is needed: History/Risk Factors:. COPD, hyperlipidemia, prostate cancer, cad with stent, etoh. a fib, heart failure Clinical Indicators: VS on admission: T 99.4, P 77, R 18, 120/69, 95% RA Echocardiogram Results: EF 50-55%, moderate pulmonary hypertension Treatment: Metoprolol 12.5 mg, Lasix 40mg PO In your professional opinion, can you please clarify the acuity and type of CHF if known? Systolic Heart Failure: Acute Chronic Acute on Chronic Diastolic Heart Failure: Acute Chronic Acute on Chronic Systolic & Diastolic Heart Failure: Acute Chronic Acute on Chronic Heart Failure Unable to Determine Other, please specify Please continue to document in your progress notes and discharge summary in order to capture severity of illness and risk of mortality. Include clinical findings that support your diagnosis. MTDD
[2017-09-14] MEDS ORDERED: HEPARIN SODIUM,PORCINE 5,000 UNIT/ML 1 ML VIAL IV ONE (13:15)
[2017-09-14] MEDS ORDERED: HEPARIN SODIUM,PORCINE 5,000 UNIT/ML 1 ML VIAL IV PRN (13:15)
[2017-09-14] MEDS: LACTATED RINGERS 1,000 ML IV SCH (13:20)
--- NOTE | 2017-09-14 14:12 | PN ---
PROGRESS NOTE DATE OF SERVICE: 09/14/2017 This 72-year-old gentleman admitted with right upper quadrant abdominal pain. is being closely monitored. No chest pain. No palpitations. No fever. PHYSICAL EXAM: Alert and oriented x3. Pulse is 82, blood pressure 121/80, respiration 14, temperature 99.1, pulse ox 100% on room air. HEENT: Normal. NECK: No jugular venous distension. CARDIOVASCULAR: S1, S2, muffled. RESPIRATORY: Breath sounds diminished at the bases, some scattered rhonchi, no crackles. ABDOMEN: Soft, nontender, obese, mild diffuse tenderness in the right upper quadrant. No mass palpable. LEGS: No edema. No swelling. CENTRAL NERVOUS SYSTEM: No focal deficits. LABS: CBC noted. INR is 2.2, sodium 134, and bilirubin is 0.9 and AST 62. ASSESSMENT: 1. Right upper quadrant abdominal pain, possible acute cholelithiasis with cholecystitis. 2. Elevated bilirubin and hepatic and possible obstructive jaundice, improving. 3. Hyponatremia. 4. Increased WBC. 5. Heparin monitoring. 6. History of chronic obstructive pulmonary disease. 7. Coumadin monitoring. 8. Gastroesophageal reflux disease. 9. Hyperlipidemia. 10.Degenerative joint disease. 11.Prostate disorder. 12.History of sleep apnea. 13.History of prostate cancer history of hiatal hernia. 14.History of coronary artery disease stent. 15.History of peripheral vascular disease and bilateral femoral bypass surgery. 16.History of ETOH. 17.Remote history of nicotine dependence. RECOMMENDATION: Recommend to continue current medications. Continue with current management and symptomatic treatment. At this time, I would recommend hold antiplatelets and Coumadin. IV heparin, closely follow with Surgery. Broad-spectrum IV antibiotics. Follow up with Cardiology. Further recommendations to follow. MMODL / IJN: [id number] /
[2017-09-14] MEDS: HEPARIN SODIUM,PORCINE/D5W PMX 25,000 UNIT in DEXTROSE/WATER 1 500ML.BAG IV SCH (15:27)
--- NOTE | 2017-09-14 15:29 | P.PN ---
Subjective Mr. Mccullough is a pleasant 72-year-old male past medical history significant for coronary artery disease s/p angioplasty 05/2017, aortic stenosis , chronic atrial fibrillation on intermediate anticoagulation with coumadin, diastolic dysfunction, cardiomyopathy, COPD and dyslipidemia. He follows with Dr. Nguyễn in the office. He underwent BRAYDEN secondary to aortic stenosis in May which revealed a heavily calcified aortic valve with a valve area 0.8-0.9 and a mean gradient of 28. Following that he underwent cardiac catheterization to assess for coronary artery disease which revealed circumflex artery with a lesion of approximately 50-60% proximally and 40-50% in the midportion, significant stenosis of the RCA after the bifurcation. He underwent successful angioplasty of the RCA at that time. We've been asked to see him in consultation for pre-operative evaluation prior to cholecystectomy. He states for the previous month or so he's been feeling vague intermittent symptoms abdominal discomfort, nausea, abdominal distention and dark urine. He underwent a CT of his abdomen and pelvis per his primary care physician as an outpatient that revealed findings compatible with acute cholecystitis with biliary sludge or stones layering dependently within the gallbladder neck. He was sent to the hospital for evaluation and has been seen in consultation by GI service and surgery. GI is planning for an ERCP to assess for common bile duct obstruction and surgery is tentatively for Sunday at 2 PM. Coumadin and Plavix have been placed on hold since admission for pending surgery. At the time of my exam he is seen resting comfortably in a recliner in no acute distress. He states his pain is primarily under control at this time. His abdomen is significantly distended. He denies symptoms of chest pain, shortness of breath , dizziness, diaphoresis or palpitations. He also denies PND or orthopnea. Current cardiac medications include Coumadin, Aldactone 25 mg twice a day, Lopressor 25 mg twice a day, Lasix 40 mg 3 times a day, Plavix 75 mg daily, atorvastatin 40 mg daily and aspirin 81 mg daily. Laboratory data reviewed, hemoglobin 12.5, platelets 205, INR 2.7, sodium 137, potassium 4.1, creatinine 0.92, total bilirubin 2.0, AST 102, ALP 179, alk phos 208. 09/14/2017 Mr. Mccullough is seen and examined today in no acute distress. Repeat 2-D echocardiogram yesterday revealed preserved left ventricular systolic function with ejection fraction 50-55%, severe aortic stenosis with a mean gradient of 43.85 mmHg, mild mitral regurgitation with a mean gradient across the valve 3.7 mmHg, mild TR and moderate pulmonary hypertension with an RVSP of 59.73 mmHg. He was scheduled for an MRCP yesterday was unable to complete due to body habitus. He continues to have significant abdominal discomfort and distention. Laboratory data reviewed, INR 2.2, sodium 134, potassium 4.0, creatinine 0.88 , liver enzymes are showing improvement with total bilirubin normal. Blood pressure 94/59 heart rate 72 afebrile maintaining oxygen saturation on nasal cannula 2 L. Objective - Vital Signs Vital signs: Vital Signs Temp 98.8 F 09/14/17 14:31 Pulse 72 09/14/17 14:31 Resp 17 09/14/17 14:31 BP 94/59 09/14/17 14:31 Pulse Ox 95 09/14/17 14:31 Intake & Output 09/13/17 09/14/17 09/14/17 18:59 06:59 18:59 Intake Total 550 160 Output Total 900 Balance -350 160 Intake: Intake, IV Titration 50 160 Amount Lactated Ringers 1,000 ml 160 @ 20 mls/hr IV .Q24H JUL[facility] Rx#:[id number] Piperacillin-Tazobactam 3 50 .375 gm In Dextrose/Water 1 50ml.bag @ 12.5 mls/hr IVPB Q8HR JULITA Rx#: [id number] Oral 500 Output: Urine 900 Other: Voiding Method Toilet Toilet Toilet # Voids 4 2 2 - Exam GENERAL: Well-appearing, well-nourished and in no acute distress. NECK: Supple without JVD or thyromegaly. LUNGS: Breath sounds clear to auscultation bilaterally. Respiration equal and unlabored. No wheezes, rales or rhonchi. HEART: Regular rate and rhythm with holosystolic murmur, no rubs or gallops. S1 and S2 heard. EXTREMITIES: Normal range of motion, no edema. No clubbing or cyanosis. Peripheral pulses intact and strong. - Labs CBC & Chem 7: 09/13/17 07:06 09/14/17 07:16 Labs: Abnormal Lab Results - Last 24 Hours (Table) 09/14/17 09/14/17 Range/Units 07:16 07:16 PT 19.8 H (9.0-12.0) sec INR 2.2 H (<1.2) Sodium 134 L (137-145) mmol/L Chloride 92 L (98-107) mmol/L Carbon Dioxide 31 H (22-30) mmol/L AST 62 H (17-59) U/L ALT 129 H (21-72) U/L Alkaline Phosphatase 170 H (38-126) U/L Total Protein 6.2 L (6.3-8.2) g/dL Microbiology - Last 24 Hours (Table) 09/12/17 23:00 Urine Culture - Final Urine,Voided 09/12/17 18:44 Blood Culture - Preliminary Blood No Growth after 24 hours Assessment and Plan Assessment: ASSESSMENT 1. Acute cholecystitis 2. Elevated liver enzymes 3. Coronary artery disease with recent angioplasty of RCA and mild disease of circumflex artery 4. Moderate-severe aortic stenosis 5. Paroxysmal atrial fibrillation on bacteriologist medical anticoagulation with coumadin 6. Hypertension 7. Chronic diastolic dysfunction 8. Chronic daily alcohol intake PLAN Continue to hold Plavix and Coumadin. Daily PT/INR, once INR below 2 And infusion will be initiated. Decrease lasix to BID for borderline blood pressures. Post-operatively he should be monitored closely on [facility]. Further recommendations to follow. Nurse Practitioner note has been reviewed, I agree with a documented findings and plan of care. Patient was seen and examined.
[2017-09-14 18:30] LABS: Hepatitis A Antibody IgM Non-Reactive (Non-Reactive); Hepatitis B Core IgM Non-Reactive (Non-Reactive)
[2017-09-14] MEDS: ATORVASTATIN 40 MG TAB PO SCH (21:44)
[2017-09-14] MEDS: CYCLOBENZAPRINE 5 MG TAB PO SCH (21:44)
[2017-09-14] MEDS: MONTELUKAST 10 MG TAB PO SCH (21:45)
[2017-09-15] MEDS: IPRATROPIUM 0.5 MG/2.5 ML NEBU INHALATION SCH ×4 (07:11→19:43)
[2017-09-15] MEDS: SYMBICORT 160-4.5 MCG INHALER INHALATION SCH ×2 (07:11→19:43)
[2017-09-15 08:26] LABS: Basophils % (A) 1 %; Eosinophils # (A) 0.1 k/uL (0-0.7); Eosinophils % (A) 3 %; HCT 34.9 % (39.0-53.0); HGB 11.5 gm/dL (13.0-17.5); Lymphocytes # (A) 1.5 k/uL (1.0-4.8); Lymphocytes % (A) 37 %; MCH 31.2 pg (25.0-35.0); MCV 94.7 fL (80.0-100.0); Mean Platelet Volume 7.9; Monocytes # (A) 0.5 k/uL (0-1.0); Monocytes % (A) 14 %; Neutrophils # (A) 1.7 k/uL (1.3-7.7); Neutrophils % (A) 42 %; Platelet Count 188 k/uL (150-450); RBC 3.68 m/uL (4.30-5.90); RDW 13.5 % (11.5-15.5)
[2017-09-15] MEDS: MORPHINE SULFATE 2 MG/ML SYRINGE IV PRN ×3 (08:30→23:54)
[2017-09-15] MEDS: ASPIRIN 81 MG PO SCH (08:36)
[2017-09-15] MEDS: PIPERACILLIN-TAZOBACTAM 3.375 GM in DEXTROSE/WATER 1 50ML.BAG IVPB SCH ×3 (08:36→23:54)
[2017-09-15] MEDS: ASCORBIC ACID 500 MG TAB PO SCH (08:36)
[2017-09-15 08:37] LABS: ALT 85 U/L (21-72); AST 43 U/L (17-59); Albumin 3.2 g/dL (3.5-5.0); Alkaline Phosphatase 124 U/L (38-126); Anion Gap 11 mmol/L; Blood Urea Nitrogen 22 mg/dL (9-20); Calcium 8.3 mg/dL (8.4-10.2); Carbon Dioxide 31 mmol/L (22-30); Chloride 93 mmol/L (98-107); Glucose 99 mg/dL (74-99); Potassium 3.8 mmol/L (3.5-5.1); Sodium 135 mmol/L (137-145); Total Bilirubin 0.6 mg/dL (0.2-1.3); Total Protein 6.1 g/dL (6.3-8.2)
[2017-09-15] MEDS: CYANOCOBALAMIN 500 MCG TAB PO SCH (08:37)
[2017-09-15] MEDS: CHOLECALCIFEROL 1,000 UNIT TAB PO SCH (08:37)
[2017-09-15] MEDS: cycloSPORINE 0.05% OPHTH 0.4 ML DROPERETTE BOTH EYES SCH ×2 (08:38→23:05)
[2017-09-15] MEDS: FLUTICASONE 50MCG/SPRAY NASAL 16GM EA NOSTRIL SCH ×2 (08:38→23:04)
[2017-09-15] MEDS: METOPROLOL TARTRATE 12.5 MG TAB PO SCH ×2 (08:39→23:06)
[2017-09-15] MEDS: MAGNESIUM OXIDE 400 MG TAB PO SCH ×2 (08:39→23:05)
[2017-09-15] MEDS: FUROSEMIDE 40 MG TAB PO SCH ×2 (08:39→16:06)
[2017-09-15] MEDS: PANTOPRAZOLE 40 MG/10 ML VIAL IVP SCH (08:40)
[2017-09-15] MEDS: SPIRONOLACTONE 25 MG TAB PO SCH ×2 (08:40→23:07)
[2017-09-15] MEDS: OXYBUTYNIN XL 5 MG TAB.ER.24 PO SCH (08:40)
[2017-09-15] MEDS: TAMSULOSIN 0.4 MG CAP.ER.24H PO SCH (08:41)
[2017-09-15 09:06] LABS: INR 1.6 (<1.2); Partial Thromboplastin Time 55.5 sec (22.0-30.0); Prothrombin Time 14.4 sec (9.0-12.0)
[2017-09-15] MEDS: LACTATED RINGERS 1,000 ML IV SCH (12:17)
--- NOTE | 2017-09-15 12:46 | P.PN ---
Subjective Progress Note Date: 09/15/17 Mr. Mccullough is a pleasant 72-year-old male past medical history significant for coronary artery disease s/p angioplasty 05/2017, aortic stenosis , chronic atrial fibrillation on terminologist anticoagulation with coumadin, diastolic dysfunction, cardiomyopathy, COPD and dyslipidemia. He follows with Dr. Nguyễn in the office. He underwent BRAYDEN secondary to aortic stenosis in May which revealed a heavily calcified aortic valve with a valve area 0.8-0.9 and a mean gradient of 28. Following that he underwent cardiac catheterization to assess for coronary artery disease which revealed circumflex artery with a lesion of approximately 50-60% proximally and 40-50% in the midportion, significant stenosis of the RCA after the bifurcation. He underwent successful angioplasty of the RCA at that time. We've been asked to see him in consultation for pre-operative evaluation prior to cholecystectomy. He states for the previous month or so he's been feeling vague intermittent symptoms abdominal discomfort, nausea, abdominal distention and dark urine. He underwent a CT of his abdomen and pelvis per his primary care physician as an outpatient that revealed findings compatible with acute cholecystitis with biliary sludge or stones layering dependently within the gallbladder neck. He was sent to the hospital for evaluation and has been seen in consultation by GI service and surgery. GI is planning for an ERCP to assess for common bile duct obstruction and surgery is tentatively for Sunday at 2 PM. Coumadin and Plavix have been placed on hold since admission for pending surgery. At the time of my exam he is seen resting comfortably in a recliner in no acute distress. He states his pain is primarily under control at this time. His abdomen is significantly distended. He denies symptoms of chest pain, shortness of breath , dizziness, diaphoresis or palpitations. He also denies PND or orthopnea. Current cardiac medications include Coumadin, Aldactone 25 mg twice a day, Lopressor 25 mg twice a day, Lasix 40 mg 3 times a day, Plavix 75 mg daily, atorvastatin 40 mg daily and aspirin 81 mg daily. Laboratory data reviewed, hemoglobin 12.5, platelets 205, INR 2.7, sodium 137, potassium 4.1, creatinine 0.92, total bilirubin 2.0, AST 102, ALP 179, alk phos 208. 09/14/2017 Mr. Mccullough is seen and examined today in no acute distress. Repeat 2-D echocardiogram yesterday revealed preserved left ventricular systolic function with ejection fraction 50-55%, severe aortic stenosis with a mean gradient of 43.85 mmHg, mild mitral regurgitation with a mean gradient across the valve 3.7 mmHg, mild TR and moderate pulmonary hypertension with an RVSP of 59.73 mmHg. He was scheduled for an MRCP yesterday was unable to complete due to body habitus. He continues to have significant abdominal discomfort and distention. Laboratory data reviewed, INR 2.2, sodium 134, potassium 4.0, creatinine 0.88 , liver enzymes are showing improvement with total bilirubin normal. Blood pressure 94/59 heart rate 72 afebrile maintaining oxygen saturation on nasal cannula 2 L. 09/15/2017 Patient seen and examined this morning, sitting up in the chair at bedside. Pain is under adequate control. White blood cell count 4.0, hemoglobin 11.5, platelet count 188. INR today 1.6. Sodium 135, potassium 3.8, BUN 22, creatinine 0.8. Liver enzymes continued to improve. Blood pressure 115/60 with a heart rate in the 70s. Objective - Vital Signs Vital signs: Vital Signs Temp 97.9 F 09/15/17 07:00 Pulse 74 09/15/17 10:57 Resp 16 09/15/17 08:00 BP 115/66 09/15/17 07:00 Pulse Ox 98 09/15/17 07:00 Intake & Output 09/14/17 09/15/17 09/15/17 18:59 06:59 18:59 Intake Total 160 170 Balance 160 170 Weight 110.677 kg Intake: Intake, IV Titration 160 170 Amount Heparin Sodium,Porcine/ 120 D5w Pmx 25,000 unit In Dextrose/Water 1 500ml. bag @ 9.04 UNITS/KG/HR 20 .01 mls/hr IV .Q24H JULITA Rx#:[id number] Lactated Ringers 1,000 ml 160 @ 20 mls/hr IV .Q24H JULITA Rx#:[id number] Piperacillin-Tazobactam 3 50 .375 gm In Dextrose/Water 1 50ml.bag @ 12.5 mls/hr IVPB Q8HR JULITA Rx#: [id number] Other: Voiding Method Toilet Toilet # Voids 2 1 - Exam PHYSICAL EXAMINATION: GENERAL: 72-year-old gentleman in no apparent distress at the time of my examination HEENT: Head is atraumatic, normocephalic. Pupils equal, round. Sclera anicteric. Conjunctiva are clear. Mucous membranes of the mouth are moist. Neck is supple. There is no elevated jugular venous pressure.] bruit is heard. HEART EXAMINATION: Heart S1, S2 systolic ejection murmur heard. No murmur or gallop heard. CHEST EXAMINATION: Lungs are clear to auscultation and precussion. No chest wall tenderness is noted on palpation or with deep breathing. ABDOMEN: Soft, mild generalized tenderness on palpation . Bowel sounds are heard. No organomegaly noted]. EXTRMITIES:[ 2+ peiheral pulses with no evidence of peripheral edema and no calf tenderness noted]. NEUOOGIC [patien s awake, alert and oriented -3.] . - Labs CBC & Chem 7: 18 06:28 18 06:28 Labs: Abnormal Lab Results - Last 24 Hours (Table) 09/14/17 09/15/17 09/15/17 Range/Units 21:08 06:28 06:28 RBC 3.68 L (4.30-5.90) m/uL Hgb 11.5 L (13.0-17.5) gm/dL Hct 34.9 L (39.0-53.0) % PT (9.0-12.0) sec INR (<1.2) APTT 55.5 H (22.0-30.0) sec Sodium 135 L (137-145) mmol/L Chloride 93 L (98-107) mmol/L Carbon Dioxide 31 H (22-30) mmol/L BUN 22 H (9-20) mg/dL Calcium 8.3 L (8.4-10.2) mg/dL ALT 85 H (21-72) U/L Total Protein 6.1 L (6.3-8.2) g/dL Albumin 3.2 L (3.5-5.0) g/dL 09/15/17 Range/Units 08:31 RBC (4.30-5.90) m/uL Hgb (13.0-17.5) gm/dL Hct (39.0-53.0) % PT 14.4 H (9.0-12.0) sec INR 1.6 H (<1.2) APTT 55.5 H (22.0-30.0) sec Sodium (137-145) mmol/L Chloride (98-107) mmol/L Carbon Dioxide (22-30) mmol/L BUN (9-20) mg/dL Calcium (8.4-10.2) mg/dL ALT (21-72) U/L Total Protein (6.3-8.2) g/dL Albumin (3.5-5.0) g/dL Microbiology - Last 24 Hours (Table) 09/12/17 18:44 Blood Culture - Preliminary Blood No Growth after 48 hours 09/12/17 23:00 Urine Culture - Final Urine,Voided Assessment and Plan Plan: ASSESSMENT 1. Acute cholecystitis 2. Elevated liver enzymes 3. Coronary artery disease with recent angioplasty of RCA and mild disease of circumflex artery 4. Moderate-severe aortic stenosis 5. Paroxysmal atrial fibrillation on terminologist anticoagulation with coumadin 6. Hypertension 7. Chronic diastolic dysfunction 8. Chronic daily alcohol intake Plan We will continue to hold the patient's Plavix and Coumadin, continue IV heparin. INR 1.6 today. Postoperatively patient should be managed on the telemetry unit.
--- NOTE | 2017-09-15 13:14 | P.PN ---
Subjective Progress Note Date: 09/15/17 Principal diagnosis: Cholecystitis Patient doing well today. INR is down 1.6. Pain is gradually improving in the upper abdomen. Tolerating diet. Liver enzymes decreasing. White blood cell count is normal. Objective - Vital Signs Vital signs: Vital Signs Temp 97.9 F 09/15/17 07:00 Pulse 74 09/15/17 10:57 Resp 16 09/15/17 08:00 BP 115/66 09/15/17 07:00 Pulse Ox 98 09/15/17 07:00 Intake & Output 09/14/17 09/15/17 09/15/17 18:59 06:59 18:59 Intake Total 160 170 Balance 160 170 Weight 110.677 kg Intake: Intake, IV Titration 160 170 Amount Heparin Sodium,Porcine/ 120 D5w Pmx 25,000 unit In Dextrose/Water 1 500ml. bag @ 9.04 UNITS/KG/HR 20 .01 mls/hr IV .Q24H [facility] Rx#:[id number] Lactated Ringers 1,000 ml 160 @ 20 mls/hr IV .Q24H [facility] Rx#:[id number] Piperacillin-Tazobactam 3 50 .375 gm In Dextrose/Water 1 50ml.bag @ 12.5 mls/hr IVPB Q8HR [facility] Rx#: [id number] Other: Voiding Method Toilet Toilet # Voids 2 1 - Exam Abdomen: Soft, nondistended, mild epigastric tenderness - Labs CBC & Chem 7: 09/15/17 06:28 09/15/17 06:28 Labs: Abnormal Lab Results - Last 24 Hours (Table) 09/14/17 09/15/17 09/15/17 Range/Units 21:08 06:28 06:28 RBC 3.68 L (4.30-5.90) m/uL Hgb 11.5 L (13.0-17.5) gm/dL Hct 34.9 L (39.0-53.0) % PT (9.0-12.0) sec INR (<1.2) APTT 55.5 H (22.0-30.0) sec Sodium 135 L (137-145) mmol/L Chloride 93 L (98-107) mmol/L Carbon Dioxide 31 H (22-30) mmol/L BUN 22 H (9-20) mg/dL Calcium 8.3 L (8.4-10.2) mg/dL ALT 85 H (21-72) U/L Total Protein 6.1 L (6.3-8.2) g/dL Albumin 3.2 L (3.5-5.0) g/dL 09/15/17 Range/Units 08:31 RBC (4.30-5.90) m/uL Hgb (13.0-17.5) gm/dL Hct (39.0-53.0) % PT 14.4 H (9.0-12.0) sec INR 1.6 H (<1.2) APTT 55.5 H (22.0-30.0) sec Sodium (137-145) mmol/L Chloride (98-107) mmol/L Carbon Dioxide (22-30) mmol/L BUN (9-20) mg/dL Calcium (8.4-10.2) mg/dL ALT (21-72) U/L Total Protein (6.3-8.2) g/dL Albumin (3.5-5.0) g/dL Microbiology - Last 24 Hours (Table) 09/12/17 18:44 Blood Culture - Preliminary Blood No Growth after 48 hours 09/12/17 23:00 Urine Culture - Final Urine,Voided Assessment and Plan (1) Acute cholecystitis Narrative/Plan: Patient doing well at this time. Continue to hold oral anticoagulation. Continue antibiotics. Proceed with cholecystectomy 09/17. Current Visit: Yes Status: Acute Code(s): K81.0 - ACUTE CHOLECYSTITIS SNOMED Code(s): 98215268
--- NOTE | 2017-09-15 15:07 | PN ---
PROGRESS NOTE DATE OF SERVICE: 09/15/2017 Patient is a 72-year-old pleasant white male admitted to the hospital with severe epigastric and right upper quadrant abdominal pain and possible acute cholecystitis. He is feeling much better today. He remains on broad-spectrum antibiotics. Still has mild pain in the right upper quadrant area, but no nausea, vomiting. He reports no fever, chills or night sweats. PHYSICAL EXAMINATION: On physical examination, he appears comfortable. No apparent distress. Vital signs are stable. Temperature is 98.4, pulse rate 72, blood pressure . HEENT examination unremarkable. Conjunctivae pink. Sclerae anicteric. Oral cavity, no lesions. NECK: No JVD or lymph node enlargement. Chest was clear to auscultation. HEART: Regular rate and rhythm. ABDOMEN: Soft. Mild tenderness in the epigastric and right upper quadrant area. It was obese. EXTREMITIES: No pedal edema. SKIN: No rashes. NEURO: Alert and oriented x3. No focal deficits. LABS: WBC 4, hemoglobin 11.5, platelets are normal. T-bili is 0.6. AST and ALT are 43 and 85 respectively. The alkaline phosphatase 124. BUN and creatinine 22 and 0.8 respectively. IMPRESSION: 1. Epigastric right upper quadrant abdominal pain secondary to acute cholecystitis. The patient on empiric antibiotics, doing extremely well. Abdominal pain is resolved. Leukocytosis improved. 2. Elevated LFTs, gradually resolving. In fact, T-bilirubin has completely normalized. RECOMMENDATION: 1. Continue with broad-spectrum antibiotics. 2. Continue to hold anticoagulation. 3. Patient is scheduled for laparoscopic cholecystectomy by Dr. Morales on Sunday. 4. At this time, there is no indication for an ERCP. We will sign off. Please call us if needed. Thank you for this consultation. MMODL / IJN: [id number] /
[2017-09-15] MEDS: HEPARIN SODIUM,PORCINE/D5W PMX 25,000 UNIT in DEXTROSE/WATER 1 500ML.BAG IV SCH (16:06)
--- NOTE | 2017-09-15 17:58 | PN ---
PROGRESS NOTE DATE OF SERVICE: 09/15/2017 This 72-year-old gentleman admitted with acute cholecystitis and cholelithiasis, being closely monitored. Patient has IV heparin and platelets. Antiplatelets are on hold. Surgery is tentatively planned for Sunday. No chest pain. No palpitations. No fever. Cardiology following the patient closely. PHYSICAL EXAM: Alert and oriented x3. Pulse is 72. Blood pressure 115/66, respirations 16, temperature 97.9, pulse ox 98% on 2L. HEENT: Conjunctivae normal. Oral mucosa moist. NECK: No jugular venous distention. No carotid bruits. No lymph node enlargement. CARDIOVASCULAR: S1, S2 muffled. RESPIRATORY: Breath sounds diminished in the bases. No rhonchi. No crackles. ABDOMEN: Soft. Tenderness in the right upper quadrant. LEGS: No edema. No swelling. NERVOUS SYSTEM: Nonfocal. LABS: WBC 4, hemoglobin is 11.5 and bilirubin is 0.6 and the ALT is 85. ASSESSMENT: 1. Right upper quadrant abdominal pain, possible acute cholelithiasis with cholecystitis. 2. Elevated bilirubin and hepatic enzymes, possible obstructing jaundice, improving. 3. Hyponatremia. 4. Increased WBC. 5. Heparin monitoring. 6. History of chronic obstructive pulmonary disease. 7. Coumadin monitoring. 8. Gastroesophageal reflux disease. 9. Hyperlipidemia. 10.Degenerative joint disease. 11.Prostate disorder. 12.History of sleep apnea. 13.History of prostate cancer. 14.History of hiatal hernia. 15.History of coronary artery disease, stent. 16.History of peripheral vascular disease and bilateral femoral bypass surgery. 17.History of EtOH. 18.History of nicotine dependence. RECOMMENDATIONS AND DISCUSSION: Continue current medical management, continue symptomatic treatment. Continue to hold antiplatelet agent Coumadin, continue with IV heparin. Repeat labs. Guarded prognosis because of multiple complex medical issues and further recommendations to follow. MMODL / IJN: [id number] /
[2017-09-15] MEDS: CYCLOBENZAPRINE 5 MG TAB PO SCH (23:05)
[2017-09-15] MEDS: ATORVASTATIN 40 MG TAB PO SCH (23:05)
[2017-09-15] MEDS: MONTELUKAST 10 MG TAB PO SCH (23:07)
[2017-09-16] MEDS: MORPHINE SULFATE 2 MG/ML SYRINGE IV PRN ×3 (04:19→20:44)
[2017-09-16 07:25] LABS: Basophils % (A) 0 %; Eosinophils # (A) 0.1 k/uL (0-0.7); Eosinophils % (A) 2 %; HCT 34.3 % (39.0-53.0); HGB 10.7 gm/dL (13.0-17.5); Lymphocytes % (A) 23 %; MCH 29.9 pg (25.0-35.0); MCHC 31.3 g/dL (31.0-37.0); MCV 95.3 fL (80.0-100.0); Mean Platelet Volume 7.3; Monocytes # (A) 0.2 k/uL (0-1.0); Monocytes % (A) 6 %; Neutrophils # (A) 2.8 k/uL (1.3-7.7); Neutrophils % (A) 68 %; Platelet Count 197 k/uL (150-450); RDW 13.3 % (11.5-15.5); WBC 4.2 k/uL (3.8-10.6)
[2017-09-16 07:33] LABS: INR 1.3 (<1.2); Partial Thromboplastin Time 48.9 sec (22.0-30.0); Prothrombin Time 12.5 sec (9.0-12.0)
[2017-09-16] MEDS: IPRATROPIUM 0.5 MG/2.5 ML NEBU INHALATION SCH ×4 (07:36→19:45)
[2017-09-16] MEDS: SYMBICORT 160-4.5 MCG INHALER INHALATION SCH ×2 (07:36→19:43)
--- NOTE | 2017-09-16 08:06 | P.PN ---
Subjective Progress Note Date: 09/16/17 Principal diagnosis: Cholecystitis patient doing well today. He says his pain is about the same. No nausea or vomiting. Tolerating diet. White blood cell count normal. INR now 1.3. Objective - Vital Signs Vital signs: Vital Signs Temp 98.2 F 09/16/17 01:10 Pulse 84 09/16/17 07:55 Resp 18 09/16/17 03:10 BP 106/63 09/16/17 01:10 Pulse Ox 97 09/16/17 01:10 Intake & Output 09/15/17 09/16/17 09/16/17 18:59 06:59 18:59 Intake Total 493.247 450 Balance 493.247 450 Weight 110.677 kg Intake: Intake, IV Titration 493.247 50 Amount Heparin Sodium,Porcine/ 493.247 D5w Pmx 25,000 unit In Dextrose/Water 1 500ml. bag @ 9.04 UNITS/KG/HR 20 .01 mls/hr IV .Q24H [facility] Rx#:[id number] Piperacillin-Tazobactam 3 50 .375 gm In Dextrose/Water 1 50ml.bag @ 12.5 mls/hr IVPB Q8HR [facility] Rx#: [id number] Oral 400 Other: Voiding Method Toilet # Voids 2 1 - Exam abdomen: Soft, nondistended, mild epigastric and right upper quadrant tenderness - Labs CBC & Chem 7: 09/16/17 06:54 09/15/17 06:28 Labs: Abnormal Lab Results - Last 24 Hours (Table) 09/15/17 09/15/17 09/15/17 Range/Units 06:28 06:28 08:31 RBC 3.68 L (4.30-5.90) m/uL Hgb 11.5 L (13.0-17.5) gm/dL Hct 34.9 L (39.0-53.0) % PT 14.4 H (9.0-12.0) sec INR 1.6 H (<1.2) APTT 55.5 H (22.0-30.0) sec Sodium 135 L (137-145) mmol/L Chloride 93 L (98-107) mmol/L Carbon Dioxide 31 H (22-30) mmol/L BUN 22 H (9-20) mg/dL Calcium 8.3 L (8.4-10.2) mg/dL ALT 85 H (21-72) U/L Total Protein 6.1 L (6.3-8.2) g/dL Albumin 3.2 L (3.5-5.0) g/dL 09/16/17 09/16/17 Range/Units 06:54 06:54 RBC 3.60 L (4.30-5.90) m/uL Hgb 10.7 L (13.0-17.5) gm/dL Hct 34.3 L (39.0-53.0) % PT 12.5 H (9.0-12.0) sec INR 1.3 H (<1.2) APTT 48.9 H (22.0-30.0) sec Sodium (137-145) mmol/L Chloride (98-107) mmol/L Carbon Dioxide (22-30) mmol/L BUN (9-20) mg/dL Calcium (8.4-10.2) mg/dL ALT (21-72) U/L Total Protein (6.3-8.2) g/dL Albumin (3.5-5.0) g/dL Microbiology - Last 24 Hours (Table) 09/12/17 18:44 Blood Culture - Preliminary Blood No Growth after 72 hours Assessment and Plan (1) Acute cholecystitis Narrative/Plan: Will make nothing by mouth after midnight. Continue to hold anticoagulation. Proceed with cholecystectomy tomorrow. Current Visit: Yes Status: Acute Code(s): K81.0 - ACUTE CHOLECYSTITIS SNOMED Code(s): 80505910
--- NOTE | 2017-09-16 09:21 | P.PN ---
Subjective Mr. Mccullough is a pleasant 72-year-old male past medical history significant for coronary artery disease s/p angioplasty 05/2017, aortic stenosis , chronic atrial fibrillation on fdc anticoagulation with coumadin, diastolic dysfunction, cardiomyopathy, COPD and dyslipidemia. He follows with Dr. Nguyễn in the office. He underwent BRAYDEN secondary to aortic stenosis in May which revealed a heavily calcified aortic valve with a valve area 0.8-0.9 and a mean gradient of 28. Following that he underwent cardiac catheterization to assess for coronary artery disease which revealed circumflex artery with a lesion of approximately 50-60% proximally and 40-50% in the midportion, significant stenosis of the RCA after the bifurcation. He underwent successful angioplasty of the RCA at that time. We've been asked to see him in consultation for pre-operative evaluation prior to cholecystectomy. He states for the previous month or so he's been feeling vague intermittent symptoms abdominal discomfort, nausea, abdominal distention and dark urine. He underwent a CT of his abdomen and pelvis per his primary care physician as an outpatient that revealed findings compatible with acute cholecystitis with biliary sludge or stones layering dependently within the gallbladder neck. He was sent to the hospital for evaluation and has been seen in consultation by GI service and surgery. GI is planning for an ERCP to assess for common bile duct obstruction and surgery is tentatively for Sunday at 2 PM. Coumadin and Plavix have been placed on hold since admission for pending surgery. At the time of my exam he is seen resting comfortably in a recliner in no acute distress. He states his pain is primarily under control at this time. His abdomen is significantly distended. He denies symptoms of chest pain, shortness of breath , dizziness, diaphoresis or palpitations. He also denies PND or orthopnea. Current cardiac medications include Coumadin, Aldactone 25 mg twice a day, Lopressor 25 mg twice a day, Lasix 40 mg 3 times a day, Plavix 75 mg daily, atorvastatin 40 mg daily and aspirin 81 mg daily. Laboratory data reviewed, hemoglobin 12.5, platelets 205, INR 2.7, sodium 137, potassium 4.1, creatinine 0.92, total bilirubin 2.0, AST 102, ALP 179, alk phos 208. 09/14/2017 Mr. Mccullough is seen and examined today in no acute distress. Repeat 2-D echocardiogram yesterday revealed preserved left ventricular systolic function with ejection fraction 50-55%, severe aortic stenosis with a mean gradient of 43.85 mmHg, mild mitral regurgitation with a mean gradient across the valve 3.7 mmHg, mild TR and moderate pulmonary hypertension with an RVSP of 59.73 mmHg. He was scheduled for an MRCP yesterday was unable to complete due to body habitus. He continues to have significant abdominal discomfort and distention. Laboratory data reviewed, INR 2.2, sodium 134, potassium 4.0, creatinine 0.88 , liver enzymes are showing improvement with total bilirubin normal. Blood pressure 94/59 heart rate 72 afebrile maintaining oxygen saturation on nasal cannula 2 L. 09/16/2017 Mr. Mccullough is seen and examined sitting up in chair undergoing nebulizer treatment. He continues to complain of ongoing abdominal discomfort that seems to be worse this morning. He denies symptoms of chest pain, shortness of breath , palpitations or dizziness. Telemetry tracings have been unremarkable and indicate a sinus mechanism. He is continually maintained on a heparin infusion. He states his surgery is still tentatively planned for tomorrow at 2 PM. His heparin infusion should be discontinued 4 hours prior to surgery. Laboratory data reviewed, hemoglobin 10.7, platelets 197, INR 1.3. Blood pressure this morning 8454 heart rate 58 afebrile maintaining oxygen saturation on nasal cannula 2 L. Objective - Vital Signs Vital signs: Vital Signs Temp 97.4 F L 09/16/17 08:58 Pulse 58 L 09/16/17 08:58 Resp 18 09/16/17 08:58 BP 84/54 09/16/17 08:58 Pulse Ox 95 09/16/17 08:58 Intake & Output 09/15/17 09/16/17 09/16/17 18:59 06:59 18:59 Intake Total 493.247 450 Balance 493.247 450 Weight 110.677 kg Intake: Intake, IV Titration 493.247 50 Amount Heparin Sodium,Porcine/ 493.247 D5w Pmx 25,000 unit In Dextrose/Water 1 500ml. bag @ 9.04 UNITS/KG/HR 20 .01 mls/hr IV .Q24H [facility] Rx#:[id number] Piperacillin-Tazobactam 3 50 .375 gm In Dextrose/Water 1 50ml.bag @ 12.5 mls/hr IVPB Q8HR [facility] Rx#: [id number] Oral 400 Other: Voiding Method Toilet # Voids 2 1 - Exam GENERAL: Well-appearing, well-nourished and in no acute distress. NECK: Supple without JVD or thyromegaly. LUNGS: Breath sounds clear to auscultation bilaterally. Respiration equal and unlabored. No wheezes, rales or rhonchi. HEART: Regular rate and rhythm with holosystolic murmur, no rubs or gallops. S1 and S2 heard. EXTREMITIES: Normal range of motion, no edema. No clubbing or cyanosis. Peripheral pulses intact and strong. - Labs CBC & Chem 7: 09/17/17 07:25 09/17/17 07:25 Labs: Abnormal Lab Results - Last 24 Hours (Table) 09/16/17 09/16/17 Range/Units 06:54 06:54 RBC 3.60 L (4.30-5.90) m/uL Hgb 10.7 L (13.0-17.5) gm/dL Hct 34.3 L (39.0-53.0) % PT 12.5 H (9.0-12.0) sec INR 1.3 H (<1.2) APTT 48.9 H (22.0-30.0) sec Microbiology - Last 24 Hours (Table) 09/12/17 18:44 Blood Culture - Preliminary Blood No Growth after 72 hours Assessment and Plan Assessment: ASSESSMENT 1. Acute cholecystitis 2. Elevated liver enzymes 3. Coronary artery disease with recent angioplasty of RCA and mild disease of circumflex artery 4. Moderate-severe aortic stenosis 5. Paroxysmal atrial fibrillation on fdc anticoagulation with coumadin 6. Hypertension 7. Chronic diastolic dysfunction 8. Chronic daily alcohol intake PLAN Heparin should be continued until 4 hours prior to surgery. I placed an order for the heparin can be discontinued tomorrow at 10 AM for surgery at 2 PM. Continue to hold Plavix and Coumadin. Post-operatively he should be monitored closely on [facility]. Further recommendations to follow. The above impression and plan of care have been discussed and directed by the signing physician. Jazmin Hernandez, nurse practitioner, acting as scribe for signing physician.
[2017-09-16] MEDS: CYANOCOBALAMIN 500 MCG TAB PO SCH (11:04)
[2017-09-16] MEDS: CHOLECALCIFEROL 1,000 UNIT TAB PO SCH (11:05)
[2017-09-16] MEDS: ASCORBIC ACID 500 MG TAB PO SCH (11:06)
[2017-09-16] MEDS: TAMSULOSIN 0.4 MG CAP.ER.24H PO SCH (11:07)
[2017-09-16] MEDS: OXYBUTYNIN XL 5 MG TAB.ER.24 PO SCH (11:07)
[2017-09-16] MEDS: FUROSEMIDE 40 MG TAB PO SCH ×2 (11:08→18:09)
[2017-09-16] MEDS: PANTOPRAZOLE 40 MG/10 ML VIAL IVP SCH (11:08)
[2017-09-16] MEDS: ASPIRIN 81 MG PO SCH (11:08)
[2017-09-16] MEDS: MAGNESIUM OXIDE 400 MG TAB PO SCH ×2 (11:09→20:50)
[2017-09-16] MEDS: cycloSPORINE 0.05% OPHTH 0.4 ML DROPERETTE BOTH EYES SCH ×2 (11:10→20:53)
[2017-09-16] MEDS: SPIRONOLACTONE 25 MG TAB PO SCH ×2 (11:10→20:53)
[2017-09-16] MEDS: FLUTICASONE 50MCG/SPRAY NASAL 16GM EA NOSTRIL SCH ×2 (11:10→20:53)
[2017-09-16] MEDS: METOPROLOL TARTRATE 12.5 MG TAB PO SCH ×2 (11:11→20:52)
[2017-09-16] MEDS: PIPERACILLIN-TAZOBACTAM 3.375 GM in DEXTROSE/WATER 1 50ML.BAG IVPB SCH ×2 (11:26→18:08)
[2017-09-16] MEDS: HEPARIN SODIUM,PORCINE/D5W PMX 25,000 UNIT in DEXTROSE/WATER 1 500ML.BAG IV SCH (13:38)
--- NOTE | 2017-09-16 16:44 | PN ---
PROGRESS NOTE DATE OF SERVICE: 09/16/2017. This 72-year-old gentleman who was admitted with right upper quadrant abdominal pain and possible acute cholelithiasis and cholecystitis. The patient is slated for surgery tomorrow. Patient was on IV heparin, off antiplatelets and Coumadin. No chest pain. No palpitations. No fever. EXAM: Alert and oriented x3. Pulse 65, blood pressure 105/60, respiration 18, temperature 97.7, pulse ox 97% on room air. HEENT: Conjunctivae normal. NECK: No jugular venous distention. CARDIOVASCULAR: Breath sounds diminished in the bases. No rhonchi, no crackles. ABDOMEN: Soft, obese, mild diffuse tenderness. No mass palpable. LEGS: No edema. NERVOUS SYSTEM: No focal deficits. LABS: WBC 4, hemoglobin 10.7. BMP is not available today. ASSESSMENT: 1. Right upper quadrant abdominal pain. Possible acute cholelithiasis, cholecystitis. 2. Elevated bilirubin and hepatic enzymes, status post obstructive jaundice, improving. 3. Hyponatremia. 4. Increased WBC. 5. Heparin monitoring. 6. History of chronic obstructive pulmonary disease. 7. Coumadin monitoring. 8. History of gastroesophageal reflux disease. 9. Hyperlipidemia. 10.History of degenerative joint disease. 11.History of prostate disorder. 12.History of sleep apnea. 13.History of prostate cancer. 14.History of hiatal hernia. 15.History of coronary artery disease, stent. 16.History of peripheral vascular disease and bilateral femoral-popliteal bypass surgery. 17.History of ETOH. 18.History of nicotine dependence. RECOMMENDATIONS AND DISCUSSION: I recommend to continue current management, monitoring and symptomatic treatment. Otherwise at this time, I would recommend to continue with IV heparin. Monitor PT closely. Possible surgery. Guarded prognosis. Further recommendations to follow. MMODL / IJN: [id number] /
[2017-09-16] MEDS: LACTATED RINGERS 1,000 ML IV SCH (20:49)
[2017-09-16] MEDS: ATORVASTATIN 40 MG TAB PO SCH (20:50)
[2017-09-16] MEDS: MONTELUKAST 10 MG TAB PO SCH (20:53)
[2017-09-16] MEDS: CYCLOBENZAPRINE 5 MG TAB PO SCH (20:53)
--- NOTE | 2017-09-16 21:35 | PN ---
PROGRESS NOTE DATE OF SERVICE: 09/16/17 The patient is a 72-year-old pleasant white male admitted to hospital with right upper quadrant abdominal pain/acute cholecystitis. Presently on antibiotics and gradually improving. He is scheduled for laparoscopic cholecystectomy tomorrow by Dr. Morales. In the meantime, he has been off of Coumadin. His INR today is 1.6. He has some abdominal pain mostly in the lower abdominal area as well as in the right upper quadrant area, but no fever, chills, or night sweats. No nausea, vomiting. PHYSICAL EXAMINATION: He appears comfortable. No apparent distress. VITAL SIGNS: Stable. Blood pressure is 105/68, pulse rate 65, temperature 97.7. HEENT examination unremarkable. Conjunctivae pink. Sclerae anicteric. Oral cavity no lesions. Neck no jugular venous distention or lymph node enlargement. Chest clear to auscultation. HEART: Regular rate and rhythm. ABDOMEN: Soft. Mild tenderness in the epigastric area as well as in the lower abdominal area but no rebound or rigidity. Abdomen appears distended. Extremities: No pedal edema. Skin no rashes. Neuro: He is alert and oriented x3. No focal deficits. LAB: From today WBC 4.2, hemoglobin 10.7, platelets are normal. Basic metabolic panel shows an ALT and AST that are 43 and 85 respectively. T-bilirubin and alkaline phosphatase are normal. IMPRESSION: 1. Elevated LFTs gradually improved. Recent CT scan did not show any evidence of biliary ductal dilation. 2. Acute cholecystitis. The patient on empiric antibiotics, scheduled for laparoscopic cholecystectomy tomorrow. RECOMMENDATIONS: Continue with current management. At this time we will sign off. Please call us if needed. Thank you for this consultation. MMODL / IJN: [id number] /
[2017-09-17] MEDS: PIPERACILLIN-TAZOBACTAM 3.375 GM in DEXTROSE/WATER 1 50ML.BAG IVPB SCH ×4 (01:28→23:13)
[2017-09-17] MEDS: MORPHINE SULFATE 2 MG/ML SYRINGE IV PRN ×2 (01:28→14:07)
[2017-09-17] MEDS: LACTATED RINGERS 1,000 ML IV SCH (07:43)
[2017-09-17] MEDS: SYMBICORT 160-4.5 MCG INHALER INHALATION SCH ×2 (07:49→21:17)
[2017-09-17] MEDS: IPRATROPIUM 0.5 MG/2.5 ML NEBU INHALATION SCH ×4 (07:49→21:17)
[2017-09-17 08:24] LABS: Basophils % (A) 0 %; Eosinophils # (A) 0.2 k/uL (0-0.7); Eosinophils % (A) 3 %; HCT 33.8 % (39.0-53.0); HGB 10.7 gm/dL (13.0-17.5); Lymphocytes % (A) 22 %; MCH 30.9 pg (25.0-35.0); MCHC 31.7 g/dL (31.0-37.0); MCV 97.5 fL (80.0-100.0); Mean Platelet Volume 7.3; Monocytes # (A) 0.3 k/uL (0-1.0); Monocytes % (A) 6 %; Neutrophils # (A) 3.2 k/uL (1.3-7.7); Neutrophils % (A) 67 %; Platelet Count 195 k/uL (150-450); RBC 3.46 m/uL (4.30-5.90); RDW 13.6 % (11.5-15.5); WBC 4.8 k/uL (3.8-10.6)
[2017-09-17 08:27] LABS: INR 1.2 (<1.2); Prothrombin Time 11.3 sec (9.0-12.0)
[2017-09-17 08:34] LABS: ALT 316 U/L (21-72); AST 316 U/L (17-59); Alkaline Phosphatase 307 U/L (38-126); Anion Gap 9 mmol/L; Blood Urea Nitrogen 13 mg/dL (9-20); Calcium 8.4 mg/dL (8.4-10.2); Carbon Dioxide 32 mmol/L (22-30); Chloride 96 mmol/L (98-107); Glucose 93 mg/dL (74-99); Potassium 3.8 mmol/L (3.5-5.1); Sodium 137 mmol/L (137-145); Total Bilirubin 1.1 mg/dL (0.2-1.3); Total Protein 5.5 g/dL (6.3-8.2)
[2017-09-17] MEDS: cycloSPORINE 0.05% OPHTH 0.4 ML DROPERETTE BOTH EYES SCH ×2 (08:38→23:11)
[2017-09-17] MEDS: FLUTICASONE 50MCG/SPRAY NASAL 16GM EA NOSTRIL SCH (08:38)
[2017-09-17] MEDS: PANTOPRAZOLE 40 MG/10 ML VIAL IVP SCH (08:38)
[2017-09-17] MEDS: ASPIRIN 81 MG PO SCH (10:22)
[2017-09-17] MEDS: ASCORBIC ACID 500 MG TAB PO SCH (10:22)
[2017-09-17] MEDS: CHOLECALCIFEROL 1,000 UNIT TAB PO SCH (10:22)
[2017-09-17] MEDS: METOPROLOL TARTRATE 12.5 MG TAB PO SCH (10:23)
[2017-09-17] MEDS: MAGNESIUM OXIDE 400 MG TAB PO SCH ×2 (10:23→23:11)
[2017-09-17] MEDS: CYANOCOBALAMIN 500 MCG TAB PO SCH (10:23)
[2017-09-17] MEDS: FUROSEMIDE 40 MG TAB PO SCH ×3 (10:23→23:12)
[2017-09-17] MEDS: OXYBUTYNIN XL 5 MG TAB.ER.24 PO SCH (10:24)
[2017-09-17] MEDS: SPIRONOLACTONE 25 MG TAB PO SCH ×2 (10:24→23:12)
[2017-09-17] MEDS: TAMSULOSIN 0.4 MG CAP.ER.24H PO SCH (10:24)
[2017-09-17] MEDS ORDERED: ACETAMINOPHEN IV (For NPO) 1,000 MG in EMPTY BAG 1 BAG IVPB ONE (11:00)
[2017-09-17] MEDS ORDERED: ceFAZolin IN SWFI 2 GM/20 ML SYRINGE IVP ONE (11:00)
[2017-09-17] MEDS ORDERED: INDOCYANINE GREEN 25 MG VIAL IV ONE (12:00)
--- NOTE | 2017-09-17 13:14 | P.PN ---
Subjective Mr. Mccullough is a pleasant 72-year-old male past medical history significant for coronary artery disease s/p angioplasty 05/2017, aortic stenosis , chronic atrial fibrillation on correction anticoagulation with coumadin, diastolic dysfunction, cardiomyopathy, COPD and dyslipidemia. He follows with Dr. Nguyễn in the office. He underwent BRAYDEN secondary to aortic stenosis in May which revealed a heavily calcified aortic valve with a valve area 0.8-0.9 and a mean gradient of 28. Following that he underwent cardiac catheterization to assess for coronary artery disease which revealed circumflex artery with a lesion of approximately 50-60% proximally and 40-50% in the midportion, significant stenosis of the RCA after the bifurcation. He underwent successful angioplasty of the RCA at that time. We've been asked to see him in consultation for pre-operative evaluation prior to cholecystectomy. He states for the previous month or so he's been feeling vague intermittent symptoms abdominal discomfort, nausea, abdominal distention and dark urine. He underwent a CT of his abdomen and pelvis per his primary care physician as an outpatient that revealed findings compatible with acute cholecystitis with biliary sludge or stones layering dependently within the gallbladder neck. He was sent to the hospital for evaluation and has been seen in consultation by GI service and surgery. GI is planning for an ERCP to assess for common bile duct obstruction and surgery is tentatively for Sunday at 2 PM. Coumadin and Plavix have been placed on hold since admission for pending surgery. At the time of my exam he is seen resting comfortably in a recliner in no acute distress. He states his pain is primarily under control at this time. His abdomen is significantly distended. He denies symptoms of chest pain, shortness of breath , dizziness, diaphoresis or palpitations. He also denies PND or orthopnea. Current cardiac medications include Coumadin, Aldactone 25 mg twice a day, Lopressor 25 mg twice a day, Lasix 40 mg 3 times a day, Plavix 75 mg daily, atorvastatin 40 mg daily and aspirin 81 mg daily. Laboratory data reviewed, hemoglobin 12.5, platelets 205, INR 2.7, sodium 137, potassium 4.1, creatinine 0.92, total bilirubin 2.0, AST 102, ALP 179, alk phos 208. 09/14/2017 Mr. Mccullough is seen and examined today in no acute distress. Repeat 2-D echocardiogram yesterday revealed preserved left ventricular systolic function with ejection fraction 50-55%, severe aortic stenosis with a mean gradient of 43.85 mmHg, mild mitral regurgitation with a mean gradient across the valve 3.7 mmHg, mild TR and moderate pulmonary hypertension with an RVSP of 59.73 mmHg. He was scheduled for an MRCP yesterday was unable to complete due to body habitus. He continues to have significant abdominal discomfort and distention. Laboratory data reviewed, INR 2.2, sodium 134, potassium 4.0, creatinine 0.88 , liver enzymes are showing improvement with total bilirubin normal. Blood pressure 94/59 heart rate 72 afebrile maintaining oxygen saturation on nasal cannula 2 L. 09/16/2017 Mr. Mccullough is seen and examined sitting up in chair undergoing nebulizer treatment. He continues to complain of ongoing abdominal discomfort that seems to be worse this morning. He denies symptoms of chest pain, shortness of breath , palpitations or dizziness. Telemetry tracings have been unremarkable and indicate a sinus mechanism. He is continually maintained on a heparin infusion. He states his surgery is still tentatively planned for tomorrow at 2 PM. His heparin infusion should be discontinued 4 hours prior to surgery. Laboratory data reviewed, hemoglobin 10.7, platelets 197, INR 1.3. Blood pressure this morning 8454 heart rate 58 afebrile maintaining oxygen saturation on nasal cannula 2 L. 09/17/2017 Mr. Mccullough is seen and examined sitting up in the chair. Surgery is planned for this afternoon. Heparin will be stopped at 1000 today. He has developed some increased b/l lower extremity edema. He denies shortness of breath, chest pain, palpitations or dizziness. Telemetry tracings continue to show sinus mechanism. Blood pressure 120/59 heart rate 60 afebrile and maintain oxygen saturation on room air. Continues to complain of abdominal pain and distention. Laboratory data reviewed, hgb 10.7, plt 195, sodium 137, potassium 3.8, creatinine 0.8. Significant increase in liver enzymes from yesterday. Objective - Vital Signs Vital signs: Vital Signs Temp 97.6 F 09/17/17 07:00 Pulse 66 09/17/17 11:36 Resp 18 09/17/17 07:00 BP 120/59 09/17/17 07:00 Pulse Ox 91 L 09/17/17 07:52 Intake & Output 09/16/17 09/17/17 09/17/17 18:59 06:59 18:59 Intake Total 430.882 50 Balance 430.882 50 Weight 110.677 kg Intake: Intake, IV Titration 430.882 50 Amount Heparin Sodium,Porcine/ 430.882 D5w Pmx 25,000 unit In Dextrose/Water 1 500ml. bag @ 9.04 UNITS/KG/HR 20 .01 mls/hr IV .Q24H [facility] Rx#:[id number] Piperacillin-Tazobactam 3 50 .375 gm In Dextrose/Water 1 50ml.bag @ 12.5 mls/hr IVPB Q8HR [facility] Rx#: [id number] Other: Voiding Method Toilet Toilet Toilet # Voids 1 - Exam GENERAL: Well-appearing, well-nourished and in no acute distress. NECK: Supple without JVD or thyromegaly. LUNGS: Breath sounds clear to auscultation bilaterally. Respiration equal and unlabored. No wheezes, rales or rhonchi. HEART: Regular rate and rhythm with holosystolic murmur, no rubs or gallops. S1 and S2 heard. EXTREMITIES: Normal range of motion, 1+ bilateral lower extremity pitting edema. No clubbing or cyanosis. Peripheral pulses intact. - Labs CBC & Chem 7: 09/17/17 07:25 09/17/17 07:25 Labs: Abnormal Lab Results - Last 24 Hours (Table) 09/17/17 09/17/17 09/17/17 Range/Units 07:25 07:25 07:25 RBC 3.46 L (4.30-5.90) m/uL Hgb 10.7 L (13.0-17.5) gm/dL Hct 33.8 L (39.0-53.0) % INR 1.2 H (<1.2) Chloride 96 L (98-107) mmol/L Carbon Dioxide 32 H (22-30) mmol/L AST 316 H (17-59) U/L ALT 316 H (21-72) U/L Alkaline Phosphatase 307 H (38-126) U/L Total Protein 5.5 L (6.3-8.2) g/dL Albumin 3.0 L (3.5-5.0) g/dL Microbiology - Last 24 Hours (Table) 09/12/17 18:44 Blood Culture - Preliminary Blood No Growth after 96 hours Assessment and Plan Assessment: ASSESSMENT 1. Acute cholecystitis 2. Elevated liver enzymes 3. Coronary artery disease with recent angioplasty of RCA and mild disease of circumflex artery 4. Moderate-severe aortic stenosis 5. Paroxysmal atrial fibrillation on correction anticoagulation with coumadin 6. Hypertension 7. Chronic diastolic dysfunction 8. Chronic daily alcohol intake PLAN Heparin should be continued until 4 hours prior to surgery. Order placed for discontinuation at 1000 for surgery at 1400. Continue to hold Plavix and Coumadin. Increase lasix to TID. Post-operatively he should be monitored closely on [facility]. Further recommendations to follow. The above impression and plan of care have been discussed and directed by the signing physician. Jazmin Hernandez, nurse practitioner, acting as scribe for signing physician.
--- NOTE | 2017-09-17 13:39 | PN ---
PROGRESS NOTE DATE OF SERVICE: 09/17/2017. This 72-year-old gentleman who was admitted with right upper quadrant abdominal pain also had cholelithiasis and cholecystitis. The patient is placed on IV heparin. The patient is slated to have surgery today. Dr. Carrion is following the patient closely. LFTs are elevated. No chest pain. No palpitations. No fever. PHYSICAL EXAMINATION: On exam, alert and oriented x3. The pulse is 60, blood pressure is 120/59, respiration 18, temperature 97.6, pulse ox 94% on 2 L. HEENT: Conjunctivae normal. NECK: No jugular venous distention. CARDIOVASCULAR: S1 and S2 muffled. RESPIRATORY: Breath sounds diminished at the bases. A few scattered rhonchi. No crackles. ABDOMEN: Soft, obese, mild diffuse tenderness in the right upper quadrant. NERVOUS SYSTEM: No focal deficits. LABS: WBC 4.8, hemoglobin 10.7. AST 316 and ALT is 316. ASSESSMENT: 1. Right upper quadrant abdominal pain, possible acute cholelithiasis and cholecystitis. 2. Elevated bilirubin with hepatic enzymes, status post obstructive jaundice. 3. Hyponatremia. 4. Increased WBC. 5. Heparin monitoring. 6. History of chronic obstructive pulmonary disease. 7. Coumadin monitoring. 8. History of gastroesophageal reflux disease. 9. Hyperlipidemia. 10.History of degenerative joint disease. 11.History of prostate disorder. 12.History of sleep apnea. 13.History of prostate cancer. 14.History of hiatal hernia. 15.History of coronary artery disease, stent. 16.History of peripheral vascular disease with bilateral femoropopliteal bypass surgery,. 17.History EtOH. 18.History of nicotine dependence. RECOMMENDATIONS AND DISCUSSION: In this 72-year-old gentleman admitted with multiple complex medical issues at this time I recommend continue the current medications. Surgery is planning possible laparoscopic cholecystectomy. Otherwise we will closely follow with Gastroenterology. Repeat labs in the morning. Otherwise, Coumadin may be restarted after surgery. Otherwise continue to monitor. Prognosis guarded. Further recommendations to follow. MMODL / IJN: [id number] /
[2017-09-17] MEDS ORDERED: IV FLUID CONTINUATION 350 ML IV ONE (17:05)
[2017-09-17] MEDS: ONDANSETRON 4 MG/2 ML VIAL IVP PRN (17:35)
--- NOTE | 2017-09-17 17:42 | P.HPADDEND ---
H&P Addendum H&P Addendum Date: 09/17/17 Patient seen and evaluated. Benefits and risks of cholecystomy described. Robotic approach described.
[2017-09-17] MEDS ORDERED: VECURONIUM 10 MG VIAL IV ONE (18:07)
[2017-09-17] MEDS ORDERED: NEOSTIGMINE 1 MG/ML 10 ML VIAL ONE (18:07)
[2017-09-17] MEDS ORDERED: PHENYLEPHRINE-0.9% NACL SYG 1 MG/10 ML SYRINGE ONE (18:07)
[2017-09-17] MEDS ORDERED: fentaNYL (PF) 50 MCG/ML 2 ML AMP ONE (18:07)
[2017-09-17] MEDS ORDERED: LIDOCAINE 1% INJ 10MG/ML (20 ML MDV) ONE (18:07)
[2017-09-17] MEDS ORDERED: BUPIVACAINE (PF) 0.5% 30 ML VIAL SQ ONE (18:07)
[2017-09-17] MEDS ORDERED: SUCCINYLCHOLINE CHLORIDE 100 MG/5 ML SYR IV ONE (18:07)
[2017-09-17] MEDS ORDERED: MIDAZOLAM 2 MG/2 ML VIAL ONE (18:07)
[2017-09-17] MEDS ORDERED: GLYCOPYRROLATE 0.2 MG/ML 2 ML VIAL ONE (18:07)
[2017-09-17] MEDS ORDERED: ETOMIDATE 2 MG/ML 10 ML VIAL ONE (18:07)
[2017-09-17] MEDS ORDERED: LACTATED RINGERS 1,000 ML IV ONE ×3 (18:25→20:49)
--- NOTE | 2017-09-17 21:19 | P.PCN ---
Date of Procedure: 09/17/17 Preoperative Diagnosis: Acute gangrenous cholecystitis, quite a lot with a, peripheral vascular occlusive disease, atrial fibrillation, ischemic cardiomyopathy, morbid obesity Postoperative Diagnosis: Same, severe intra-abdominal adhesions Procedure(s) Performed: Robotic-assisted lysis of adhesions over 1-1/2 hours, robotic subtotal cholecystectomy, placement of #19 round KEVIN drain hepatic fossa Anesthesia: GETA, local Surgeon: Mayda Morales Fox Farmer #1: Chela Stringer Estimated Blood Loss (ml): 550 Pathology: other (Subtotal cholecystectomy) Disposition: floor Operative Findings: 1. Moderate chronic colopathy adding complexity to the case 2. Severe intra-abdominal adhesions from previous laparotomy 3. Acute gangrenous cholecystitis with omental adhesions throughout the gallbladder 4. Secured cystic duct with severe central adiposity requiring subtotal cholecystectomy 5. Complete cystic duct obstruction confirmed with firefly 6. Dome down technique performed for mobilization of the gallbladder 7. Gallbladder removed using 3 fires of 45 mm green loads 8. Placement of KEVIN drain right hepatic fossa 9. Severely thickened gallbladder wall requiring smart technology robotic stapler firing 10. All ports positioned along the right upper quadrant secondary to severe triple abdominal adhesions 11. Moderate to severe diastases recti of the epigastrium
[2017-09-17] MEDS: HYDROmorphone 1 MG/ML 1 ML SYRINGE IVP ONE ×3 (21:41→22:20)
[2017-09-17] MEDS ORDERED: HYDROmorphone 1 MG/ML 1 ML SYRINGE IVP ONE (22:10)
[2017-09-17] MEDS: traMADol 50 MG TAB PO PRN (23:09)
[2017-09-17] MEDS: CYCLOBENZAPRINE 5 MG TAB PO SCH (23:11)
[2017-09-18] MEDS: ATORVASTATIN 40 MG TAB PO SCH ×2 (00:31→20:47)
[2017-09-18] MEDS: METOPROLOL TARTRATE 12.5 MG TAB PO SCH ×3 (00:32→20:46)
[2017-09-18] MEDS: MONTELUKAST 10 MG TAB PO SCH ×2 (00:32→20:47)
[2017-09-18] MEDS: FLUTICASONE 50MCG/SPRAY NASAL 16GM EA NOSTRIL SCH ×3 (00:32→20:47)
[2017-09-18] MEDS: MORPHINE SULFATE 2 MG/ML SYRINGE IV PRN ×5 (00:45→18:10)
[2017-09-18] MEDS: SYMBICORT 160-4.5 MCG INHALER INHALATION SCH ×2 (07:43→19:47)
[2017-09-18] MEDS: IPRATROPIUM 0.5 MG/2.5 ML NEBU INHALATION SCH ×4 (07:43→19:47)
[2017-09-18 07:46] LABS: Basophils % (A) 0 %; Eosinophils # (A) 0.4 k/uL (0-0.7); Eosinophils % (A) 5 %; HCT 33.7 % (39.0-53.0); HGB 10.6 gm/dL (13.0-17.5); Lymphocytes # (A) 0.8 k/uL (1.0-4.8); Lymphocytes % (A) 11 %; MCH 30.5 pg (25.0-35.0); MCHC 31.4 g/dL (31.0-37.0); MCV 97.2 fL (80.0-100.0); Mean Platelet Volume 7.2; Monocytes # (A) 0.4 k/uL (0-1.0); Monocytes % (A) 6 %; Neutrophils # (A) 5.6 k/uL (1.3-7.7); Neutrophils % (A) 77 %; Platelet Count 210 k/uL (150-450); RBC 3.47 m/uL (4.30-5.90); RDW 13.3 % (11.5-15.5); WBC 7.3 k/uL (3.8-10.6)
[2017-09-18 07:57] LABS: ALT 246 U/L (21-72); AST 199 U/L (17-59); Albumin 3.1 g/dL (3.5-5.0); Alkaline Phosphatase 271 U/L (38-126); Anion Gap 9 mmol/L; Blood Urea Nitrogen 13 mg/dL (9-20); Calcium 8.1 mg/dL (8.4-10.2); Carbon Dioxide 34 mmol/L (22-30); Chloride 95 mmol/L (98-107); Glucose 93 mg/dL (74-99); Potassium 4.3 mmol/L (3.5-5.1); Sodium 138 mmol/L (137-145); Total Protein 5.5 g/dL (6.3-8.2)
[2017-09-18] MEDS: PIPERACILLIN-TAZOBACTAM 3.375 GM in DEXTROSE/WATER 1 50ML.BAG IVPB SCH ×2 (08:14→16:56)
[2017-09-18] MEDS: FUROSEMIDE 40 MG TAB PO SCH ×3 (08:54→20:48)
[2017-09-18] MEDS: ASPIRIN 81 MG PO SCH (08:54)
[2017-09-18] MEDS: MAGNESIUM OXIDE 400 MG TAB PO SCH ×2 (08:55→20:47)
[2017-09-18] MEDS: TAMSULOSIN 0.4 MG CAP.ER.24H PO SCH (08:55)
[2017-09-18] MEDS: SPIRONOLACTONE 25 MG TAB PO SCH ×2 (08:55→20:47)
[2017-09-18] MEDS: CHOLECALCIFEROL 1,000 UNIT TAB PO SCH (08:55)
[2017-09-18] MEDS: OXYBUTYNIN XL 5 MG TAB.ER.24 PO SCH (08:55)
[2017-09-18] MEDS: cycloSPORINE 0.05% OPHTH 0.4 ML DROPERETTE BOTH EYES SCH ×2 (08:55→20:47)
[2017-09-18] MEDS: ASCORBIC ACID 500 MG TAB PO SCH (08:55)
[2017-09-18] MEDS: CYANOCOBALAMIN 500 MCG TAB PO SCH (08:56)
[2017-09-18] MEDS: PANTOPRAZOLE 40 MG/10 ML VIAL IVP SCH (08:56)
[2017-09-18] MEDS: LACTATED RINGERS 1,000 ML IV SCH (09:03)
[2017-09-18] MEDS: traMADol 50 MG TAB PO PRN ×2 (09:47→20:54)
--- NOTE | 2017-09-18 10:21 | P.PN ---
<Geri Saeed M - Last Filed: 09/18/17 10:10> Subjective Progress Note Date: 09/18/17 72-year-old male seen this morning on rounds currently patient is sitting up in a chair. Patient reports surgical discomfort pain medication effective for pain control. Reports no nausea vomiting not passing gas abdomen remains large slightly distended with a KEVIN drain in place bloody drainage noted in the bulb currently denying chest pain or shortness of breath Hemoglobin this morning 10.6 white count 7.3. Potassium 4.3. AST and ALT are trending down total bili 1 Robotic-assisted lysis of adhesions over 1-1/2 hours, robotic subtotal cholecystectomy, placement of #19 round KEVIN drain hepatic fossa for acute gangrenous to cystitis Objective - Vital Signs Vital signs: Vital Signs Temp 97.8 F 09/18/17 07:55 Pulse 76 09/18/17 07:55 Resp 16 09/18/17 07:55 BP 109/71 09/18/17 07:55 Pulse Ox 99 09/18/17 07:55 Intake & Output 09/17/17 09/18/17 09/18/17 18:59 06:59 18:59 Intake Total 1450 850 Output Total 630 Balance 1450 220 Weight 110.677 kg Intake: IV 1450 300 Intake, IV Titration 50 Amount Piperacillin-Tazobactam 3 50 .375 gm In Dextrose/Water 1 50ml.bag @ 12.5 mls/hr IVPB Q8HR [facility] Rx#: [id number] Oral 500 Output: Drainage 80 Abdomen 80 Estimated Blood Loss 550 Other: Voiding Method Toilet Toilet Toilet Urinal # Voids 3 - Exam Physical exam 72-year-old male less jaundiced sitting up in a chair this morning is pleasant oriented 3 reports having surgical discomfort Lungs adequate air movement bilaterally no shortness of breath Heart S1-S2 audible irregular telemetry shows sinus with PACs and PVCs denying chest pain Abdomen large in size firm surgical dressing site dry positive surgical tenderness appropriate few hypoactive bowel tones KEVIN drain in place bloody drainage noted in the bulb reports no nausea vomiting states his urinating no difficulty Extremities trace pedal edema bilaterally Venodyne's on - Labs CBC & Chem 7: 09/18/17 06:49 09/18/17 06:49 Labs: Abnormal Lab Results - Last 24 Hours (Table) 09/18/17 09/18/17 Range/Units 06:49 06:49 RBC 3.47 L (4.30-5.90) m/uL Hgb 10.6 L (13.0-17.5) gm/dL Hct 33.7 L (39.0-53.0) % Lymphocytes # 0.8 L (1.0-4.8) k/uL Chloride 95 L (98-107) mmol/L Carbon Dioxide 34 H (22-30) mmol/L Calcium 8.1 L (8.4-10.2) mg/dL AST 199 H (17-59) U/L ALT 246 H (21-72) U/L Alkaline Phosphatase 271 H (38-126) U/L Total Protein 5.5 L (6.3-8.2) g/dL Albumin 3.1 L (3.5-5.0) g/dL Microbiology - Last 24 Hours (Table) 09/12/17 18:44 Blood Culture - Preliminary Blood No Growth after 120 hours Assessment and Plan Assessment: Impression Present on admission acute right upper quadrant abdominal pain with jaundice with elevated liver enzymes suspect due to acute cholecystitis with either biliary sludge or stones History of paroxysmal atrial fibrillation on anticoagulation Coumadin A recent May 2017 drug-eluting stent to the right coronary artery on aspirin Plavix Daily consumption of alcoholic beverages per patient report 2-3 daily Present on admission elevated liver enzymes with right upper quadrant abdominal pain suspect due to acute cholecystitis Known coronary artery disease with recent coronary stenting right coronary May 2017 Obesity BMI 35 History of prostate cancer Present on admission warfarin induced coagulopathy INR 2.6 on admission Postprocedure anemia expected secondary to chronic opacity and anticoagulation therapy Robotic-assisted lysis of adhesions over 1-1/2 hours, robotic subtotal cholecystectomy, placement of #19 round KEVIN drain hepatic fossa for acute gangrenous cholecystitis with severe intra-abdominal adhesions Chronic diastolic dysfunction Moderate to severe aortic stenosis Plan Postop surgical care Increase activity as tolerated IV Zosyn as ordered Continue recommendations by cardiology Coumadin aspirin Plavix currently on hold will discuss with the surgeon on restarting Monitor hemoglobin address as indicated Pain control DVT and GI prophylaxis Monitor electrolytes keep therapeutic range The above impression and plan of care have been discussed and directed by signing physician. Geri Saeed nurse practitioner acting as scribe for signing physician. <Mayda Morales N - Last Filed: 09/18/17 19:45> Objective - Vital Signs Vital signs: Vital Signs Temp 98.2 F 09/18/17 19:16 Pulse 68 09/18/17 19:16 Resp 16 09/18/17 19:16 BP 105/59 09/18/17 19:16 Pulse Ox 96 09/18/17 19:16 Intake & Output 09/18/17 09/18/17 09/19/17 06:59 18:59 06:59 Intake Total 850 Output Total 630 30 Balance 220 -30 Intake: IV 300 Intake, IV Titration 50 Amount Piperacillin-Tazobactam 3 50 .375 gm In Dextrose/Water 1 50ml.bag @ 12.5 mls/hr IVPB Q8HR [facility] Rx#: [id number] Oral 500 Output: Drainage 80 30 Abdomen 80 30 Estimated Blood Loss 550 Other: Voiding Method Toilet Toilet Urinal # Voids 3 - Labs CBC & Chem 7: 09/18/17 06:49 09/18/17 06:49 Labs: Abnormal Lab Results - Last 24 Hours (Table) 09/18/17 09/18/17 09/18/17 Range/Units 06:49 06:49 06:49 RBC 3.47 L (4.30-5.90) m/uL Hgb 10.6 L (13.0-17.5) gm/dL Hct 33.7 L (39.0-53.0) % Lymphocytes # 0.8 L (1.0-4.8) k/uL INR (<1.2) Chloride 95 L (98-107) mmol/L Carbon Dioxide 34 H (22-30) mmol/L Calcium 8.1 L (8.4-10.2) mg/dL Magnesium 1.5 L (1.6-2.3) mg/dL AST 199 H (17-59) U/L ALT 246 H (21-72) U/L Alkaline Phosphatase 271 H (38-126) U/L Total Protein 5.5 L (6.3-8.2) g/dL Albumin 3.1 L (3.5-5.0) g/dL 09/18/17 Range/Units 17:32 RBC (4.30-5.90) m/uL Hgb (13.0-17.5) gm/dL Hct (39.0-53.0) % Lymphocytes # (1.0-4.8) k/uL INR 1.2 H (<1.2) Chloride (98-107) mmol/L Carbon Dioxide (22-30) mmol/L Calcium (8.4-10.2) mg/dL Magnesium (1.6-2.3) mg/dL AST (17-59) U/L ALT (21-72) U/L Alkaline Phosphatase (38-126) U/L Total Protein (6.3-8.2) g/dL Albumin (3.5-5.0) g/dL Microbiology - Last 24 Hours (Table) 09/12/17 18:44 Blood Culture - Preliminary Blood No Growth after 120 hours
--- NOTE | 2017-09-18 13:36 | P.PN ---
Subjective Mr. Mccullough is a pleasant 72-year-old male past medical history significant for coronary artery disease s/p angioplasty 05/2017, aortic stenosis , chronic atrial fibrillation on senior living anticoagulation with coumadin, diastolic dysfunction, cardiomyopathy, COPD and dyslipidemia. He follows with Dr. Nguyễn in the office. He underwent BRAYDEN secondary to aortic stenosis in May which revealed a heavily calcified aortic valve with a valve area 0.8-0.9 and a mean gradient of 28. Following that he underwent cardiac catheterization to assess for coronary artery disease which revealed circumflex artery with a lesion of approximately 50-60% proximally and 40-50% in the midportion, significant stenosis of the RCA after the bifurcation. He underwent successful angioplasty of the RCA at that time. We've been asked to see him in consultation for pre-operative evaluation prior to cholecystectomy. He states for the previous month or so he's been feeling vague intermittent symptoms abdominal discomfort, nausea, abdominal distention and dark urine. He underwent a CT of his abdomen and pelvis per his primary care physician as an outpatient that revealed findings compatible with acute cholecystitis with biliary sludge or stones layering dependently within the gallbladder neck. He was sent to the hospital for evaluation and has been seen in consultation by GI service and surgery. GI is planning for an ERCP to assess for common bile duct obstruction and surgery is tentatively for Sunday at 2 PM. Coumadin and Plavix have been placed on hold since admission for pending surgery. At the time of my exam he is seen resting comfortably in a recliner in no acute distress. He states his pain is primarily under control at this time. His abdomen is significantly distended. He denies symptoms of chest pain, shortness of breath , dizziness, diaphoresis or palpitations. He also denies PND or orthopnea. Current cardiac medications include Coumadin, Aldactone 25 mg twice a day, Lopressor 25 mg twice a day, Lasix 40 mg 3 times a day, Plavix 75 mg daily, atorvastatin 40 mg daily and aspirin 81 mg daily. Laboratory data reviewed, hemoglobin 12.5, platelets 205, INR 2.7, sodium 137, potassium 4.1, creatinine 0.92, total bilirubin 2.0, AST 102, ALP 179, alk phos 208. 09/14/2017 Mr. Mccullough is seen and examined today in no acute distress. Repeat 2-D echocardiogram yesterday revealed preserved left ventricular systolic function with ejection fraction 50-55%, severe aortic stenosis with a mean gradient of 43.85 mmHg, mild mitral regurgitation with a mean gradient across the valve 3.7 mmHg, mild TR and moderate pulmonary hypertension with an RVSP of 59.73 mmHg. He was scheduled for an MRCP yesterday was unable to complete due to body habitus. He continues to have significant abdominal discomfort and distention. Laboratory data reviewed, INR 2.2, sodium 134, potassium 4.0, creatinine 0.88 , liver enzymes are showing improvement with total bilirubin normal. Blood pressure 94/59 heart rate 72 afebrile maintaining oxygen saturation on nasal cannula 2 L. 09/16/2017 Mr. Mccullough is seen and examined sitting up in chair undergoing nebulizer treatment. He continues to complain of ongoing abdominal discomfort that seems to be worse this morning. He denies symptoms of chest pain, shortness of breath , palpitations or dizziness. Telemetry tracings have been unremarkable and indicate a sinus mechanism. He is continually maintained on a heparin infusion. He states his surgery is still tentatively planned for tomorrow at 2 PM. His heparin infusion should be discontinued 4 hours prior to surgery. Laboratory data reviewed, hemoglobin 10.7, platelets 197, INR 1.3. Blood pressure this morning 8454 heart rate 58 afebrile maintaining oxygen saturation on nasal cannula 2 L. 09/17/2017 Mr. Mccullough is seen and examined sitting up in the chair. Surgery is planned for this afternoon. Heparin will be stopped at 1000 today. He has developed some increased b/l lower extremity edema. He denies shortness of breath, chest pain, palpitations or dizziness. Telemetry tracings continue to show sinus mechanism. Blood pressure 120/59 heart rate 60 afebrile and maintain oxygen saturation on room air. Continues to complain of abdominal pain and distention. Laboratory data reviewed, hgb 10.7, plt 195, sodium 137, potassium 3.8, creatinine 0.8. Significant increase in liver enzymes from yesterday. 09/18/2017 Mr. Mccullough is seen and examined sitting up in the chair after eating breakfast. Surgery yesterday revealed an acute gangrenous cholecystitis with omental adhesions. Subtotal cholecystectomy was performed with placement of KEVIN drain. Estimated blood loss of 550cc. Continues to complain of significant abdominal discomfort and ongoing distention. Hbg 10.6, plt 210, potassium 4.3, magnesium 1.5, total bilirubin 199, AST 246, ALT 271. Blood pressure 116/66 heart rate 71 afebrile. He denies chest pain, shortness of breath, palpitations or dizziness. Telemetry tracings continue to show sinus mechanism. Objective - Vital Signs Vital signs: Vital Signs Temp 97.9 F 09/18/17 10:02 Pulse 71 09/18/17 10:02 Resp 16 09/18/17 10:02 BP 116/66 09/18/17 10:02 Pulse Ox 98 09/18/17 10:02 Intake & Output 09/17/17 09/18/17 09/18/17 18:59 06:59 18:59 Intake Total 1450 850 Output Total 630 Balance 1450 220 Weight 110.677 kg Intake: IV 1450 300 Intake, IV Titration 50 Amount Piperacillin-Tazobactam 3 50 .375 gm In Dextrose/Water 1 50ml.bag @ 12.5 mls/hr IVPB Q8HR JULITA Rx#: [id number] Oral 500 Output: Drainage 80 Abdomen 80 Estimated Blood Loss 550 Other: Voiding Method Toilet Toilet Toilet Urinal # Voids 3 - Exam GENERAL: Well-appearing, well-nourished and in no acute distress. NECK: Supple without JVD or thyromegaly. LUNGS: Breath sounds clear to auscultation bilaterally. Respiration equal and unlabored. No wheezes, rales or rhonchi. HEART: Regular rate and rhythm with holosystolic murmur, no rubs or gallops. S1 and S2 heard. EXTREMITIES: Normal range of motion, 1+ bilateral lower extremity pitting edema. No clubbing or cyanosis. Peripheral pulses intact. - Labs CBC & Chem 7: 09/18/17 06:49 09/18/17 06:49 Labs: Abnormal Lab Results - Last 24 Hours (Table) 09/18/17 09/18/17 09/18/17 Range/Units 06:49 06:49 06:49 RBC 3.47 L (4.30-5.90) m/uL Hgb 10.6 L (13.0-17.5) gm/dL Hct 33.7 L (39.0-53.0) % Lymphocytes # 0.8 L (1.0-4.8) k/uL Chloride 95 L (98-107) mmol/L Carbon Dioxide 34 H (22-30) mmol/L Calcium 8.1 L (8.4-10.2) mg/dL Magnesium 1.5 L (1.6-2.3) mg/dL AST 199 H (17-59) U/L ALT 246 H (21-72) U/L Alkaline Phosphatase 271 H (38-126) U/L Total Protein 5.5 L (6.3-8.2) g/dL Albumin 3.1 L (3.5-5.0) g/dL Microbiology - Last 24 Hours (Table) 09/12/17 18:44 Blood Culture - Preliminary Blood No Growth after 120 hours Assessment and Plan Assessment: ASSESSMENT 1. Acute cholecystitis 2. Elevated liver enzymes 3. Coronary artery disease with recent angioplasty of RCA and mild disease of circumflex artery 4. Moderate-severe aortic stenosis 5. Paroxysmal atrial fibrillation on long term care pharmacist anticoagulation with coumadin s/ p ablation 6. Hypertension 7. Chronic diastolic heart failure, currently euvolemic 8. Chronic daily alcohol intake 9. Hypomagnesemia, replaced. PLAN Plavix should be resumed as soon as possible today or at the latest tomorrow to avoid complications with recent angioplasty. Continue with aspirin, lasix, aldactone and lopressor as was previously ordered. Coumadin can be resumed as soon as is appropriate per surgery. Repeat magnesium level in the morning. Incentive spirometer recommended. Further recommendations to follow. Nurse Practitioner note has been reviewed, I agree with a documented findings and plan of care. Patient was seen and examined.
[2017-09-18] MEDS: MAGNESIUM SULFATE-D5W PMX 1 GM in DEXTROSE/WATER 1 100ML.BAG IVPB SCH ×5 (15:29→23:23)
--- NOTE | 2017-09-18 17:02 | P.PN ---
Subjective Progress Note Date: 09/18/17 Progress Note being dictated for Dr. Lucio. interval history: Is a 72-year-old gentleman admitted with cholelithiasis and cholecystitis with accompanying elevated LFTs and multiple other medical issues.status post robotic-assisted lysis of adhesions, subtotal cholecystectomy for acute gangrenouscholecystitis.tolerated procedure well. LFTs slowly trending down. Hemoglobin 10.6.Denies flatus or bowel movement.pain controlled.tolerating clear liquid diet with no nausea vomiting. Objective - Vital Signs Vital signs: Vital Signs Temp 98.1 F 09/18/17 14:42 Pulse 74 09/18/17 14:42 Resp 16 09/18/17 14:42 BP 95/53 09/18/17 14:42 Pulse Ox 98 09/18/17 10:02 Intake & Output 09/17/17 09/18/17 09/18/17 18:59 06:59 18:59 Intake Total 1450 850 Output Total 630 Balance 1450 220 Weight 110.677 kg Intake: IV 1450 300 Intake, IV Titration 50 Amount Piperacillin-Tazobactam 3 50 .375 gm In Dextrose/Water 1 50ml.bag @ 12.5 mls/hr IVPB Q8HR JULITA Rx#: [id number] Oral 500 Output: Drainage 80 Abdomen 80 Estimated Blood Loss 550 Other: Voiding Method Toilet Toilet Toilet Urinal # Voids 3 - Exam PHYSICAL EXAM: VITAL SIGNS: [as above] GENERAL: sitting up in chair, no acute distress,jaundiced HEENT: Conjunctivae normal. eyes normal. oromucosa moist NECK: No JVD. No thyroid enlargement. No LNs CARDIOVASCULAR: S1, S2 muffled. No murmur.irregular. RESPIRATION: Breath sounds diminished in the bases. No rhonchi or crackles. No bronchial breathing. ABDOMEN:status post surgery, hypoactive bowel sounds, KEVIN present with sanguinous drainage LEGS: trace edema. PSYCHIATRY: Alert and oriented -3, mood and affect normal. NERVOUS SYSTEM: Cranial N 2-12 grossly normal. Moves all 4 limbs. Diffuse weakness No focal deficits. Skin: no ulcer no rash - Labs CBC & Chem 7: 09/18/17 06:49 09/18/17 06:49 Labs: Abnormal Lab Results - Last 24 Hours (Table) 09/18/17 09/18/1718 Range/Units 06:49 06:49 06:49 RBC 3.47 L (4.30-5.90) m/uL Hgb 10.6 L (13.0-17.5) gm/dL Hct 33.7 L (39.0-53.0) % Lymphocytes # 0.8 L (1.0-4.8) k/uL Chloride 95 L (98-107) mmol/L Carbon Dioxide 34 H (22-30) mmol/L Calcium 8.1 L (8.4-10.2) mg/dL Magnesium 1.5 L (1.6-2.3) mg/dL AST 199 H (17-59) U/L ALT 246 H (21-72) U/L Alkaline Phosphatase 271 H (38-126) U/L Total Protein 5.5 L (6.3-8.2) g/dL Albumin 3.1 L (3.5-5.0) g/dL Microbiology - Last 24 Hours (Table) 09/12/17 18:44 Blood Culture - Preliminary Blood No Growth after 120 hours Assessment and Plan Assessment: 1. Acute cholecystitis, status post robotic-assisted lysis of adhesions, subtotal cholecystectomy for acute gangrenous cholecystitis with adhesions. 2. Elevated bilirubin with hepatic enzymes, status post obstructive jaundice, slowly improving 3. History of EtOH abuse 4. Recent cardiac catheterization with stent to the RCA 5. Postoperative anemia, expected outcome,secondary to coagulopathy present on admission,anticoagulant therapy. plan: Continue on current medication regime ,monitoring and symptomatic treatment. maintain IV antibiotics. Aggressive pulmonary toileting with incentive spirometer ordered.Coumadin/plavix to be resumed when okay with surgery.pain management, diet advancement as per surgery. The impression and plan of care has been dictated as directed. : I performed a history and examination of this patient, discussed the same with the dictator. I agree with the dictator's note ,documented as a scribe. Any additional findings or plans will be noted.
[2017-09-18 17:47] LABS: INR 1.2 (<1.2); Prothrombin Time 11.3 sec (9.0-12.0)
--- NOTE | 2017-09-18 19:49 | P.PN ---
Progress Note - Text Progress Note Date: 09/18/17 Patient is sitting up in the chair. Pain is controlled. He reports no nausea. KEVIN is still sanguinous. Magnesium is low. Additional replacement of Mg placed. May advance to low fat diet. Start of coumadin pending stable Hgb for 48hrs. LFTs are improving. Subtotal cholecystectomy described with 80% gallbladder removed. Patient is still high risk for life-threatening. Potential re-start of Hep gtt tomorrow.
[2017-09-18] MEDS: CYCLOBENZAPRINE 5 MG TAB PO SCH (20:47)
[2017-09-19] MEDS: MAGNESIUM SULFATE-D5W PMX 1 GM in DEXTROSE/WATER 1 100ML.BAG IVPB SCH (00:26)
[2017-09-19] MEDS: PIPERACILLIN-TAZOBACTAM 3.375 GM in DEXTROSE/WATER 1 50ML.BAG IVPB SCH ×4 (01:35→23:51)
[2017-09-19] MEDS: MORPHINE SULFATE 2 MG/ML SYRINGE IV PRN ×4 (01:48→21:31)
[2017-09-19] MEDS: IPRATROPIUM 0.5 MG/2.5 ML NEBU INHALATION SCH ×4 (07:35→20:35)
[2017-09-19] MEDS: SYMBICORT 160-4.5 MCG INHALER INHALATION SCH ×2 (07:36→20:33)
[2017-09-19 07:57] LABS: Basophils % (A) 0 %; Eosinophils # (A) 0.8 k/uL (0-0.7); Eosinophils % (A) 10 %; HCT 30.4 % (39.0-53.0); HGB 9.8 gm/dL (13.0-17.5); Lymphocytes % (A) 13 %; MCH 30.7 pg (25.0-35.0); MCHC 32.2 g/dL (31.0-37.0); MCV 95.3 fL (80.0-100.0); Mean Platelet Volume 7.3; Monocytes # (A) 0.6 k/uL (0-1.0); Monocytes % (A) 7 %; Neutrophils # (A) 5.3 k/uL (1.3-7.7); Neutrophils % (A) 68 %; Platelet Count 211 k/uL (150-450); RBC 3.19 m/uL (4.30-5.90); RDW 13.4 % (11.5-15.5); WBC 7.8 k/uL (3.8-10.6)
[2017-09-19 08:07] LABS: ALT 176 U/L (21-72); AST 108 U/L (17-59); Albumin 2.9 g/dL (3.5-5.0); Alkaline Phosphatase 206 U/L (38-126); Anion Gap 7 mmol/L; Blood Urea Nitrogen 11 mg/dL (9-20); Calcium 7.7 mg/dL (8.4-10.2); Carbon Dioxide 36 mmol/L (22-30); Chloride 91 mmol/L (98-107); Glucose 104 mg/dL (74-99); INR 1.2 (<1.2); Magnesium 2.2 mg/dL (1.6-2.3); Potassium 4.2 mmol/L (3.5-5.1); Prothrombin Time 11.2 sec (9.0-12.0); Sodium 134 mmol/L (137-145); Total Bilirubin 0.9 mg/dL (0.2-1.3); Total Protein 5.4 g/dL (6.3-8.2)
[2017-09-19] MEDS: FLUTICASONE 50MCG/SPRAY NASAL 16GM EA NOSTRIL SCH ×2 (08:42→21:27)
[2017-09-19] MEDS: PANTOPRAZOLE 40 MG/10 ML VIAL IVP SCH (08:42)
[2017-09-19] MEDS: MAGNESIUM OXIDE 400 MG TAB PO SCH ×2 (08:42→21:26)
[2017-09-19] MEDS: CHOLECALCIFEROL 1,000 UNIT TAB PO SCH (08:43)
[2017-09-19] MEDS: CYANOCOBALAMIN 500 MCG TAB PO SCH (08:43)
[2017-09-19] MEDS: METOPROLOL TARTRATE 12.5 MG TAB PO SCH ×3 (08:43→21:31)
[2017-09-19] MEDS: OXYBUTYNIN XL 5 MG TAB.ER.24 PO SCH (08:43)
[2017-09-19] MEDS: ASPIRIN 81 MG PO SCH (08:44)
[2017-09-19] MEDS: FUROSEMIDE 40 MG TAB PO SCH ×2 (08:44→16:10)
[2017-09-19] MEDS: TAMSULOSIN 0.4 MG CAP.ER.24H PO SCH (08:44)
[2017-09-19] MEDS: ASCORBIC ACID 500 MG TAB PO SCH (08:44)
[2017-09-19] MEDS: cycloSPORINE 0.05% OPHTH 0.4 ML DROPERETTE BOTH EYES SCH ×2 (08:44→21:27)
[2017-09-19] MEDS: SPIRONOLACTONE 25 MG TAB PO SCH ×2 (08:44→21:17)
--- NOTE | 2017-09-19 09:50 | P.PN ---
Subjective Progress Note Date: 09/19/17 Patient is a 72-year-old female postop day 2 status post robotic subtotal cholecystectomy with 80% of gallbladder removed. Clinically reports abdominal pain is improved today. Tolerating liquid diet. LFTs were improving. Objective - Vital Signs Vital signs: Vital Signs Temp 97.7 F 09/19/17 05:41 Pulse 64 09/19/17 07:47 Resp 16 09/19/17 05:41 BP 119/60 09/19/17 05:41 Pulse Ox 99 09/19/17 05:41 Intake & Output 09/18/17 09/19/17 09/19/17 18:59 06:59 18:59 Intake Total 100 Output Total 30 40 Balance -30 60 Intake: Intake, IV Titration 100 Amount Magnesium Sulfate-D5w Pmx 100 1 gm In Dextrose/Water 1 100ml.bag @ 100 mls/hr IVPB Q1H JULITA Rx#: [id number] Output: Drainage 30 40 Abdomen 30 40 Other: Voiding Method Toilet Toilet Urinal Urinal # Voids 1 - Exam GENERAL: Well developed and in no acute distress. Pleasant. HEENT: No sclera icterus. Extraocular movements grossly intact. Moist buccal mucosa. Head is atraumatic, normocephalic. Hears conversational speech. No nasal drainage. NECK: Supple without lymphadenopathy. CHEST: Non-labored respirations and equal bilateral excursions. CARDIOVASCULAR: Irregular rate and rhythm. Palpable 2+ radial pulses. ABDOMEN: Soft, no peritonitis. Minimal distention. Mild tenderness right upper quadrant. KEVIN sanguinous clotted. KEVIN stripped at bedside. MUSCULOSKELETAL: No clubbing, cyanosis. NEUROLOGIC: No focal or lateralizing signs. PSYCH: Appropriate affect. Alert and oriented to person, place and time. SKIN: Good skin turgor. Well perfused. Moderate ecchymoses along bilateral upper arms. - Labs CBC & Chem 7: 09/19/17 07:30 09/19/17 07:30 Labs: Abnormal Lab Results - Last 24 Hours (Table) 09/18/17 09/18/17 09/19/17 Range/Units 06:49 17:32 07:30 RBC 3.19 L (4.30-5.90) m/uL Hgb 9.8 L (13.0-17.5) gm/dL Hct 30.4 L (39.0-53.0) % Eosinophils # 0.8 H (0-0.7) k/uL INR 1.2 H (<1.2) Sodium (137-145) mmol/L Chloride (98-107) mmol/L Carbon Dioxide (22-30) mmol/L Glucose (74-99) mg/dL Calcium (8.4-10.2) mg/dL Magnesium 1.5 L (1.6-2.3) mg/dL AST (17-59) U/L ALT (21-72) U/L Alkaline Phosphatase (38-126) U/L Total Protein (6.3-8.2) g/dL Albumin (3.5-5.0) g/dL 09/19/17 09/19/17 Range/Units 07:30 07:30 RBC (4.30-5.90) m/uL Hgb (13.0-17.5) gm/dL Hct (39.0-53.0) % Eosinophils # (0-0.7) k/uL INR 1.2 H (<1.2) Sodium 134 L (137-145) mmol/L Chloride 91 L (98-107) mmol/L Carbon Dioxide 36 H (22-30) mmol/L Glucose 104 H (74-99) mg/dL Calcium 7.7 L (8.4-10.2) mg/dL Magnesium (1.6-2.3) mg/dL AST 108 H (17-59) U/L ALT 176 H (21-72) U/L Alkaline Phosphatase 206 H (38-126) U/L Total Protein 5.4 L (6.3-8.2) g/dL Albumin 2.9 L (3.5-5.0) g/dL Microbiology - Last 24 Hours (Table) 09/12/17 18:44 Blood Culture - Final Blood No Growth after 144 hours Assessment and Plan (1) Acute cholecystitis Current Visit: Yes Status: Acute Code(s): K81.0 - ACUTE CHOLECYSTITIS SNOMED Code(s): 41533773 (2) Atrial fibrillation Current Visit: Yes Status: Acute Code(s): I48.91 - UNSPECIFIED ATRIAL FIBRILLATION SNOMED Code(s): 34296278 (3) CAD (coronary artery disease) Current Visit: Yes Status: Acute Code(s): I25.10 - ATHSCL HEART DISEASE OF [place] CORONARY ARTERY W/O ANG PCTRS SNOMED Code(s): 76070295 (4) Elevated liver enzymes Current Visit: Yes Status: Acute Code(s): R74.8 - ABNORMAL LEVELS OF OTHER SERUM ENZYMES SNOMED Code(s): 910698856 (5) Right upper quadrant abdominal pain Current Visit: Yes Status: Acute Code(s): R10.11 - RIGHT UPPER QUADRANT PAIN SNOMED Code(s): 653177105 (6) Warfarin-induced coagulopathy Current Visit: Yes Status: Acute Code(s): D68.32 - HEMORRHAGIC DISORD D/T EXTRINSIC CIRCULATING ANTICOAGULANTS; T45.515A - ADVERSE EFFECT OF ANTICOAGULANTS, INITIAL ENCOUNTER SNOMED Code(s): 76941216 Plan: 1. He had moderate intraoperative bleeding secondary to Plavix, aspirin, heparin adjuncts. 2. At bedside, KEVIN drain care taught to director industrial nursing and nurse as clotted KEVIN can cause additional right upper quadrant pain. 3. May start heparin drip, Plavix, blood thinners tomorrow, 09/20/17
--- NOTE | 2017-09-19 11:12 | XR ---
EXAMINATION TYPE: XR chest 1V DATE OF EXAM: 09/19/2017 COMPARISON: 08/10/2016 INDICATION: Rales, abnormal auscultation TECHNIQUE: Single frontal view of the chest is obtained. FINDINGS: The heart size is normal. The pulmonary vasculature is normal. There is an infiltrate in the retrocardiac region. Some mild right lower lobe infiltrate may also be present. Correlate for pneumonia. IMPRESSION: 1. Bibasilar infiltrates. Correlate for pneumonia. Atelectasis could be considered.
[2017-09-19] MEDS ORDERED: FUROSEMIDE 10 MG/ML 4 ML VIAL IV STA (12:03)
--- NOTE | 2017-09-19 12:09 | P.PN ---
Subjective Mr. Mccullough is a pleasant 72-year-old male past medical history significant for coronary artery disease s/p angioplasty 05/2017, aortic stenosis , chronic atrial fibrillation on fdc anticoagulation with coumadin, diastolic dysfunction, cardiomyopathy, COPD and dyslipidemia. He follows with Dr. Nguyễn in the office. He underwent BRAYDEN secondary to aortic stenosis in May which revealed a heavily calcified aortic valve with a valve area 0.8-0.9 and a mean gradient of 28. Following that he underwent cardiac catheterization to assess for coronary artery disease which revealed circumflex artery with a lesion of approximately 50-60% proximally and 40-50% in the midportion, significant stenosis of the RCA after the bifurcation. He underwent successful angioplasty of the RCA at that time. We've been asked to see him in consultation for pre-operative evaluation prior to cholecystectomy. He states for the previous month or so he's been feeling vague intermittent symptoms abdominal discomfort, nausea, abdominal distention and dark urine. He underwent a CT of his abdomen and pelvis per his primary care physician as an outpatient that revealed findings compatible with acute cholecystitis with biliary sludge or stones layering dependently within the gallbladder neck. He was sent to the hospital for evaluation and has been seen in consultation by GI service and surgery. GI is planning for an ERCP to assess for common bile duct obstruction and surgery is tentatively for Sunday at 2 PM. Coumadin and Plavix have been placed on hold since admission for pending surgery. At the time of my exam he is seen resting comfortably in a recliner in no acute distress. He states his pain is primarily under control at this time. His abdomen is significantly distended. He denies symptoms of chest pain, shortness of breath , dizziness, diaphoresis or palpitations. He also denies PND or orthopnea. Current cardiac medications include Coumadin, Aldactone 25 mg twice a day, Lopressor 25 mg twice a day, Lasix 40 mg 3 times a day, Plavix 75 mg daily, atorvastatin 40 mg daily and aspirin 81 mg daily. Laboratory data reviewed, hemoglobin 12.5, platelets 205, INR 2.7, sodium 137, potassium 4.1, creatinine 0.92, total bilirubin 2.0, AST 102, ALP 179, alk phos 208. 09/14/2017 Mr. Mccullough is seen and examined today in no acute distress. Repeat 2-D echocardiogram yesterday revealed preserved left ventricular systolic function with ejection fraction 50-55%, severe aortic stenosis with a mean gradient of 43.85 mmHg, mild mitral regurgitation with a mean gradient across the valve 3.7 mmHg, mild TR and moderate pulmonary hypertension with an RVSP of 59.73 mmHg. He was scheduled for an MRCP yesterday was unable to complete due to body habitus. He continues to have significant abdominal discomfort and distention. Laboratory data reviewed, INR 2.2, sodium 134, potassium 4.0, creatinine 0.88 , liver enzymes are showing improvement with total bilirubin normal. Blood pressure 94/59 heart rate 72 afebrile maintaining oxygen saturation on nasal cannula 2 L. 09/16/2017 Mr. Mccullough is seen and examined sitting up in chair undergoing nebulizer treatment. He continues to complain of ongoing abdominal discomfort that seems to be worse this morning. He denies symptoms of chest pain, shortness of breath , palpitations or dizziness. Telemetry tracings have been unremarkable and indicate a sinus mechanism. He is continually maintained on a heparin infusion. He states his surgery is still tentatively planned for tomorrow at 2 PM. His heparin infusion should be discontinued 4 hours prior to surgery. Laboratory data reviewed, hemoglobin 10.7, platelets 197, INR 1.3. Blood pressure this morning 8454 heart rate 58 afebrile maintaining oxygen saturation on nasal cannula 2 L. 09/17/2017 Mr. Mccullough is seen and examined sitting up in the chair. Surgery is planned for this afternoon. Heparin will be stopped at 1000 today. He has developed some increased b/l lower extremity edema. He denies shortness of breath, chest pain, palpitations or dizziness. Telemetry tracings continue to show sinus mechanism. Blood pressure 120/59 heart rate 60 afebrile and maintain oxygen saturation on room air. Continues to complain of abdominal pain and distention. Laboratory data reviewed, hgb 10.7, plt 195, sodium 137, potassium 3.8, creatinine 0.8. Significant increase in liver enzymes from yesterday. 09/18/2017 Mr. Mccullough is seen and examined sitting up in the chair after eating breakfast. Surgery yesterday revealed an acute gangrenous cholecystitis with omental adhesions. Subtotal cholecystectomy was performed with placement of KEVIN drain. Estimated blood loss of 550cc. Continues to complain of significant abdominal discomfort and ongoing distention. Hbg 10.6, plt 210, potassium 4.3, magnesium 1.5, total bilirubin 199, AST 246, ALT 271. Blood pressure 116/66 heart rate 71 afebrile. He denies chest pain, shortness of breath, palpitations or dizziness. Telemetry tracings continue to show sinus mechanism. 09/19/2017 Mr. Mccullough is seen and examined this morning. He is sitting up in the chair. He continues to complain of abdominal pain. Denies chest pain or shortness of breath. Lower extremity edema ongoing with mild increase appreciated. Yesterday he was in and out of atrial fibrillation with controlled ventricular response. Last evening around 1900 he had a non-sustained run of 18 beats of ventricular tachycardia. He was asymptomatic with no palpitations, chest pain or dizziness. Laboratory data reviewed, hemoglobin 9.8, platelets 211, INR 1.2, sodium 134, potassium 4.2, mesion 2.2 after supplementation, creatinine 0.71, AST 108, ALT 176 and alk phos 206. Blood pressure this morning 119/60 heart rate 62 afebrile maintaining oxygen saturation on 2 L nasal cannula. Anticoagulation has been held per surgery. Objective - Vital Signs Vital signs: Vital Signs Temp 97.7 F 09/19/17 05:41 Pulse 62 09/19/17 08:00 Resp 16 09/19/17 08:00 BP 119/60 09/19/17 05:41 Pulse Ox 99 09/19/17 05:41 Intake & Output 09/18/17 09/19/17 09/19/17 18:59 06:59 18:59 Intake Total 100 Output Total 30 40 Balance -30 60 Intake: Intake, IV Titration 100 Amount Magnesium Sulfate-D5w Pmx 100 1 gm In Dextrose/Water 1 100ml.bag @ 100 mls/hr IVPB Q1H [facility] Rx#: [id number] Output: Drainage 30 40 Abdomen 30 40 Other: Voiding Method Toilet Toilet Toilet Urinal Urinal Urinal # Voids 1 - Exam GENERAL: Well-appearing, well-nourished and in no acute distress. NECK: Supple without JVD or thyromegaly. LUNGS: Bibasilar rales. No wheezes or rhonchi. Respiration equal and unlabored. HEART: Regular rate and rhythm with holosystolic murmur, no rubs or gallops. S1 and S2 heard. EXTREMITIES: Normal range of motion, 2+ bilateral lower extremity pitting edema. No clubbing or cyanosis. Peripheral pulses intact. - Labs CBC & Chem 7: 09/19/17 07:30 09/19/17 07:30 Labs: Abnormal Lab Results - Last 24 Hours (Table) 09/18/17 09/19/17 09/19/17 Range/Units 17:32 07:30 07:30 RBC 3.19 L (4.30-5.90) m/uL Hgb 9.8 L (13.0-17.5) gm/dL Hct 30.4 L (39.0-53.0) % Eosinophils # 0.8 H (0-0.7) k/uL INR 1.2 H (<1.2) Sodium 134 L (137-145) mmol/L Chloride 91 L (98-107) mmol/L Carbon Dioxide 36 H (22-30) mmol/L Glucose 104 H (74-99) mg/dL Calcium 7.7 L (8.4-10.2) mg/dL AST 108 H (17-59) U/L ALT 176 H (21-72) U/L Alkaline Phosphatase 206 H (38-126) U/L Total Protein 5.4 L (6.3-8.2) g/dL Albumin 2.9 L (3.5-5.0) g/dL 09/19/17 Range/Units 07:30 RBC (4.30-5.90) m/uL Hgb (13.0-17.5) gm/dL Hct (39.0-53.0) % Eosinophils # (0-0.7) k/uL INR 1.2 H (<1.2) Sodium (137-145) mmol/L Chloride (98-107) mmol/L Carbon Dioxide (22-30) mmol/L Glucose (74-99) mg/dL Calcium (8.4-10.2) mg/dL AST (17-59) U/L ALT (21-72) U/L Alkaline Phosphatase (38-126) U/L Total Protein (6.3-8.2) g/dL Albumin (3.5-5.0) g/dL Microbiology - Last 24 Hours (Table) 09/12/17 18:44 Blood Culture - Final Blood No Growth after 144 hours Assessment and Plan Assessment: ASSESSMENT 1. Acute cholecystitis 2. Elevated liver enzymes 3. Coronary artery disease with recent angioplasty of RCA and mild disease of circumflex artery 4. Moderate-severe aortic stenosis 5. Paroxysmal atrial fibrillation on fdc anticoagulation with coumadin s/ p ablation 6. Hypertension 7. Chronic diastolic heart failure, mild exacerbation 8. Chronic daily alcohol intake 9. Hypomagnesemia, replaced. PLAN Stat xray has been ordered and check proBNP level. Give lasix 40 IV x1 now. Continue with PO TID after that as was Plavix should be resumed as soon as possible with loading dose of 300 mg then 75 mg daily thereafter. Coumadin should be resumed as soon as possible as well. Aspirin will be continued until INR is therapeutic then it can be discontinued. Incentive spirometer recommended. Further recommendations to follow. Nurse Practitioner note has been reviewed, I agree with a documented findings and plan of care. Patient was seen and examined.
[2017-09-19 13:10] VITALS: BMI 34.9
[2017-09-19 17:04] LABS: Basophils % (A) 0 %; Eosinophils # (A) 0.7 k/uL (0-0.7); Eosinophils % (A) 11 %; HCT 30.6 % (39.0-53.0); Lymphocytes # (A) 0.8 k/uL (1.0-4.8); Lymphocytes % (A) 12 %; MCHC 32.5 g/dL (31.0-37.0); MCV 95.5 fL (80.0-100.0); Mean Platelet Volume 7.5; Monocytes # (A) 0.5 k/uL (0-1.0); Monocytes % (A) 7 %; Neutrophils # (A) 4.7 k/uL (1.3-7.7); Neutrophils % (A) 70 %; Platelet Count 219 k/uL (150-450); RBC 3.21 m/uL (4.30-5.90); RDW 13.3 % (11.5-15.5); WBC 6.7 k/uL (3.8-10.6)
[2017-09-19] MEDS: LACTATED RINGERS 1,000 ML IV SCH (19:05)
--- NOTE | 2017-09-19 20:30 | P.PN ---
Progress Note - Text Progress Note Date: 09/19/17 Repeat hemoglobin stable. May resume all anticoagulation and antiplatelet therapy. Patient to be discharged home with KEVIN drain. Follow-up in the office in 1-[address] Mendez covering in my absence.
[2017-09-19] MEDS: CLOPIDOGREL 75 MG TAB PO SCH (21:17)
[2017-09-19] MEDS: CYCLOBENZAPRINE 5 MG TAB PO SCH (21:17)
[2017-09-19] MEDS: ATORVASTATIN 40 MG TAB PO SCH (21:26)
[2017-09-19] MEDS: MONTELUKAST 10 MG TAB PO SCH (21:27)
[2017-09-20] MEDS: MORPHINE SULFATE 2 MG/ML SYRINGE IV PRN ×3 (02:58→19:22)
[2017-09-20] MEDS: PIPERACILLIN-TAZOBACTAM 3.375 GM in DEXTROSE/WATER 1 50ML.BAG IVPB SCH ×3 (08:09→23:48)
[2017-09-20] MEDS: ONDANSETRON 4 MG/2 ML VIAL IVP PRN (08:16)
[2017-09-20] MEDS: METOPROLOL TARTRATE 12.5 MG TAB PO SCH ×3 (08:19→22:41)
[2017-09-20] MEDS: PANTOPRAZOLE 40 MG/10 ML VIAL IVP SCH (08:19)
[2017-09-20] MEDS: FLUTICASONE 50MCG/SPRAY NASAL 16GM EA NOSTRIL SCH ×2 (08:19→20:40)
[2017-09-20] MEDS: CYANOCOBALAMIN 500 MCG TAB PO SCH (08:19)
[2017-09-20] MEDS: ASPIRIN 81 MG PO SCH (08:20)
[2017-09-20] MEDS: cycloSPORINE 0.05% OPHTH 0.4 ML DROPERETTE BOTH EYES SCH ×2 (08:20→20:41)
[2017-09-20] MEDS: SPIRONOLACTONE 25 MG TAB PO SCH ×2 (08:20→20:41)
[2017-09-20] MEDS: MAGNESIUM OXIDE 400 MG TAB PO SCH ×2 (08:20→20:41)
[2017-09-20] MEDS: TAMSULOSIN 0.4 MG CAP.ER.24H PO SCH (08:20)
[2017-09-20] MEDS: CHOLECALCIFEROL 1,000 UNIT TAB PO SCH ×2 (08:20→09:26)
[2017-09-20] MEDS: FUROSEMIDE 40 MG TAB PO SCH ×3 (08:20→22:44)
[2017-09-20] MEDS: OXYBUTYNIN XL 5 MG TAB.ER.24 PO SCH (08:21)
[2017-09-20] MEDS: ASCORBIC ACID 500 MG TAB PO SCH (08:32)
[2017-09-20] MEDS: CLOPIDOGREL 75 MG TAB PO ONE ×2 (08:32→09:23)
[2017-09-20] MEDS: CLOPIDOGREL 75 MG TAB PO SCH ×2 (08:33→09:25)
[2017-09-20] MEDS: IPRATROPIUM 0.5 MG/2.5 ML NEBU INHALATION SCH ×4 (08:44→19:47)
[2017-09-20] MEDS: SYMBICORT 160-4.5 MCG INHALER INHALATION SCH ×2 (08:44→19:47)
[2017-09-20] MEDS ORDERED: CLOPIDOGREL 75 MG TAB PO SCH ×2 (09:00)
[2017-09-20 09:01] LABS: INR 1.2 (<1.2); Prothrombin Time 11.2 sec (9.0-12.0)
[2017-09-20 09:14] LABS: ALT 145 U/L (21-72); AST 62 U/L (17-59); Albumin 3.2 g/dL (3.5-5.0); Alkaline Phosphatase 191 U/L (38-126); Anion Gap 9 mmol/L; Blood Urea Nitrogen 12 mg/dL (9-20); Calcium 8.5 mg/dL (8.4-10.2); Carbon Dioxide 35 mmol/L (22-30); Chloride 91 mmol/L (98-107); Glucose 168 mg/dL (74-99); Magnesium 1.8 mg/dL (1.6-2.3); Potassium 4.2 mmol/L (3.5-5.1); Sodium 135 mmol/L (137-145); Total Bilirubin 0.9 mg/dL (0.2-1.3); Total Protein 5.8 g/dL (6.3-8.2)
[2017-09-20 09:39] LABS: Basophils % (A) 0 %; Eosinophils # (A) 0.9 k/uL (0-0.7); Eosinophils % (A) 9 %; HCT 31.3 % (39.0-53.0); HGB 10.3 gm/dL (13.0-17.5); Lymphocytes # (A) 0.7 k/uL (1.0-4.8); Lymphocytes % (A) 7 %; MCH 31.5 pg (25.0-35.0); MCHC 32.8 g/dL (31.0-37.0); MCV 96.3 fL (80.0-100.0); Mean Platelet Volume 7.3; Monocytes # (A) 0.6 k/uL (0-1.0); Monocytes % (A) 6 %; Neutrophils % (A) 77 %; Platelet Count 246 k/uL (150-450); RBC 3.25 m/uL (4.30-5.90); RDW 13.8 % (11.5-15.5); WBC 10.3 k/uL (3.8-10.6)
--- NOTE | 2017-09-20 11:35 | P.PN ---
Subjective Progress Note Date: 09/20/17 72-year-old sitting up in a chair. Denies dizziness lightheadedness chest pain or shortness of breath. Bilateral lower extremities edematous. Reports still has abdominal discomfort. Has been able to walk from the bed to the bathroom. Urinating no difficulty. States is not passing gas has not had a bowel movement. Surgical dressing site dry. Tolerating a diet with no nausea no vomiting. Anticoagulation has been initiated Coumadin and aspirin and Plavix cardiology's recommendations reviewed noted and appreciated Robotic-assisted lysis of adhesions over 1-1/2 hours, robotic subtotal cholecystectomy, placement of #19 round KEVIN drain hepatic fossa for acute gangrenous Objective - Vital Signs Vital signs: Vital Signs Temp 98.3 F 09/20/17 05:23 Pulse 74 09/20/17 09:00 Resp 18 09/20/17 05:23 BP 163/79 09/20/17 05:23 Pulse Ox 94 L 09/20/17 05:23 Intake & Output 09/19/17 09/20/17 09/20/17 18:59 06:59 18:59 Intake Total 50 210 Output Total 15 Balance 50 210 -15 Weight 110.677 kg Intake: Intake, IV Titration 50 210 Amount Lactated Ringers 1,000 ml 160 @ 20 mls/hr IV .Q24H [facility] Rx#:[id number] Piperacillin-Tazobactam 3 50 50 .375 gm In Dextrose/Water 1 50ml.bag @ 12.5 mls/hr IVPB Q8HR [facility] Rx#: [id number] Output: Drainage 15 Abdomen 15 Other: Voiding Method Toilet Toilet Urinal # Voids 1 1 - Exam Physical exam 71-year-old male sitting up in a chair reports no nausea vomiting states is not passing gas has not had a bowel movement is tolerating a diet did ambulate to the bathroom reports having abdominal discomfort Lungs diminished at the bases otherwise clear on 2 L nasal cannula sats greater than 95% no cough noted Heart S1-S2 audible regular monitor sinus rhythm denying chest pain Abdomen large soft slight surgical tenderness surgical dressings dry. Hypoactive bowel tones states not passing gas urinating no difficulty in tolerating diet with no nausea no vomiting KEVIN drain in place small amount bloody drainage noted Extremities plus edema to the bilateral lower extremities - Labs CBC & Chem 7: 09/20/17 08:39 09/20/17 08:39 Labs: Abnormal Lab Results - Last 24 Hours (Table) 09/19/17 09/20/17 09/20/17 Range/Units 16:40 08:39 08:39 RBC 3.21 L 3.25 L (4.30-5.90) m/uL Hgb 10.0 L 10.3 L (13.0-17.5) gm/dL Hct 30.6 L 31.3 L (39.0-53.0) % Neutrophils # 8.0 H (1.3-7.7) k/uL Lymphocytes # 0.8 L 0.7 L (1.0-4.8) k/uL Eosinophils # 0.9 H (0-0.7) k/uL INR (<1.2) Sodium 135 L (137-145) mmol/L Chloride 91 L (98-107) mmol/L Carbon Dioxide 35 H (22-30) mmol/L Glucose 168 H (74-99) mg/dL AST 62 H (17-59) U/L ALT 145 H (21-72) U/L Alkaline Phosphatase 191 H (38-126) U/L Total Protein 5.8 L (6.3-8.2) g/dL Albumin 3.2 L (3.5-5.0) g/dL 09/20/17 Range/Units 08:39 RBC (4.30-5.90) m/uL Hgb (13.0-17.5) gm/dL Hct (39.0-53.0) % Neutrophils # (1.3-7.7) k/uL Lymphocytes # (1.0-4.8) k/uL Eosinophils # (0-0.7) k/uL INR 1.2 H (<1.2) Sodium (137-145) mmol/L Chloride (98-107) mmol/L Carbon Dioxide (22-30) mmol/L Glucose (74-99) mg/dL AST (17-59) U/L ALT (21-72) U/L Alkaline Phosphatase (38-126) U/L Total Protein (6.3-8.2) g/dL Albumin (3.5-5.0) g/dL Assessment and Plan Assessment: Impression Present on admission acute right upper quadrant abdominal pain with jaundice with elevated liver enzymes suspect due to acute cholecystitis with either biliary sludge or stones History of paroxysmal atrial fibrillation on anticoagulation Coumadin A recent May 2017 drug-eluting stent to the right coronary artery on aspirin Plavix Daily consumption of alcoholic beverages per patient report 2-3 daily Present on admission elevated liver enzymes with right upper quadrant abdominal pain suspect due to acute cholecystitis Known coronary artery disease with recent coronary stenting right coronary May 2017 Obesity BMI 35 History of prostate cancer Present on admission warfarin induced coagulopathy INR 2.6 on admission Postprocedure anemia expected secondary to chronic opacity and anticoagulation therapy Robotic-assisted lysis of adhesions over 1-1/2 hours, robotic subtotal cholecystectomy, placement of #19 round KEVIN drain hepatic fossa for acute gangrenous cholecystitis with severe intra-abdominal adhesions Chronic diastolic dysfunction Moderate to severe aortic stenosis Hypo-magnesium replaced corrected Episode of cardiac arrhythmias Plan Postop surgical care Increase activity as tolerated IV Zosyn as ordered Continue recommendations by cardiology Coumadin aspirin Plavix currently restarted by surgical service Monitor hemoglobin address as indicated Pain control DVT and GI prophylaxis Monitor electrolytes keep therapeutic range Sulaiman wrap bilateral lower extremities Progress note dictated for dr calvo running on behalf of Dr. Cueva The above impression and plan of care have been discussed and directed by signing physician. Geri Saeed nurse practitioner acting as scribe for signing physician.
--- NOTE | 2017-09-20 13:52 | P.PN ---
Subjective Mr. 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 He follows with Dr. Nguyễn in the office. He underwent BRAYDEN secondary to aortic stenosis in May which revealed a heavily calcified aortic valve with a valve area 0.8-0.9 and a mean gradient of 28. Following that he underwent cardiac catheterization to assess for coronary artery disease which revealed circumflex artery with a lesion of approximately 50-60% proximally and 40-50% in the midportion, significant stenosis of the RCA after the bifurcation. He underwent successful angioplasty of the RCA at that time. We've been asked to see him in consultation for pre-operative evaluation prior to cholecystectomy. He states for the previous month or so he's been feeling vague intermittent symptoms abdominal discomfort, nausea, abdominal distention and dark urine. He underwent a CT of his abdomen and pelvis per his primary care physician as an outpatient that revealed findings compatible with acute cholecystitis with biliary sludge or stones layering dependently within the gallbladder neck. He was sent to the hospital for evaluation and has been seen in consultation by GI service and surgery. GI is planning for an ERCP to assess for common bile duct obstruction and surgery is tentatively for Sunday at 2 PM. Coumadin and Plavix have been placed on hold since admission for pending surgery. At the time of my exam he is seen resting comfortably in a recliner in no acute distress. He states his pain is primarily under control at this time. His abdomen is significantly distended. He denies symptoms of chest pain, shortness of breath , dizziness, diaphoresis or palpitations. He also denies PND or orthopnea. Current cardiac medications include Coumadin, Aldactone 25 mg twice a day, Lopressor 25 mg twice a day, Lasix 40 mg 3 times a day, Plavix 75 mg daily, atorvastatin 40 mg daily and aspirin 81 mg daily. Laboratory data reviewed, hemoglobin 12.5, platelets 205, INR 2.7, sodium 137, potassium 4.1, creatinine 0.92, total bilirubin 2.0, AST 102, ALP 179, alk phos 208. 09/14/2017 Mr. Mccullough is seen and examined today in no acute distress. Repeat 2-D echocardiogram yesterday revealed preserved left ventricular systolic function with ejection fraction 50-55%, severe aortic stenosis with a mean gradient of 43.85 mmHg, mild mitral regurgitation with a mean gradient across the valve 3.7 mmHg, mild TR and moderate pulmonary hypertension with an RVSP of 59.73 mmHg. He was scheduled for an MRCP yesterday was unable to complete due to body habitus. He continues to have significant abdominal discomfort and distention. Laboratory data reviewed, INR 2.2, sodium 134, potassium 4.0, creatinine 0.88 , liver enzymes are showing improvement with total bilirubin normal. Blood pressure 94/59 heart rate 72 afebrile maintaining oxygen saturation on nasal cannula 2 L. 09/16/2017 Mr. Mccullough is seen and examined sitting up in chair undergoing nebulizer treatment. He continues to complain of ongoing abdominal discomfort that seems to be worse this morning. He denies symptoms of chest pain, shortness of breath , palpitations or dizziness. Telemetry tracings have been unremarkable and indicate a sinus mechanism. He is continually maintained on a heparin infusion. He states his surgery is still tentatively planned for tomorrow at 2 PM. His heparin infusion should be discontinued 4 hours prior to surgery. Laboratory data reviewed, hemoglobin 10.7, platelets 197, INR 1.3. Blood pressure this morning 8454 heart rate 58 afebrile maintaining oxygen saturation on nasal cannula 2 L. 09/17/2017 Mr. Mccullough is seen and examined sitting up in the chair. Surgery is planned for this afternoon. Heparin will be stopped at 1000 today. He has developed some increased b/l lower extremity edema. He denies shortness of breath, chest pain, palpitations or dizziness. Telemetry tracings continue to show sinus mechanism. Blood pressure 120/59 heart rate 60 afebrile and maintain oxygen saturation on room air. Continues to complain of abdominal pain and distention. Laboratory data reviewed, hgb 10.7, plt 195, sodium 137, potassium 3.8, creatinine 0.8. Significant increase in liver enzymes from yesterday. 09/18/2017 Mr. Mccullough is seen and examined sitting up in the chair after eating breakfast. Surgery yesterday revealed an acute gangrenous cholecystitis with omental adhesions. Subtotal cholecystectomy was performed with placement of KEVIN drain. Estimated blood loss of 550cc. Continues to complain of significant abdominal discomfort and ongoing distention. Hbg 10.6, plt 210, potassium 4.3, magnesium 1.5, total bilirubin 199, AST 246, ALT 271. Blood pressure 116/66 heart rate 71 afebrile. He denies chest pain, shortness of breath, palpitations or dizziness. Telemetry tracings continue to show sinus mechanism. 09/19/2017 Mr. Mccullough is seen and examined this morning. He is sitting up in the chair. He continues to complain of abdominal pain. Denies chest pain or shortness of breath. Lower extremity edema ongoing with mild increase appreciated. Yesterday he was in and out of atrial fibrillation with controlled ventricular response. Last evening around 1900 he had a non-sustained run of 18 beats of ventricular tachycardia. He was asymptomatic with no palpitations, chest pain or dizziness. Laboratory data reviewed, hemoglobin 9.8, platelets 211, INR 1.2, sodium 134, potassium 4.2, mesion 2.2 after supplementation, creatinine 0.71, AST 108, ALT 176 and alk phos 206. Blood pressure this morning 119/60 heart rate 62 afebrile maintaining oxygen saturation on 2 L nasal cannula. Anticoagulation has been held per surgery. 09/20/2017 Mr. Mccullough seen and examined sitting up in chair. Anti-coagulation was resumed last night per primary team. Telemetry tracings indicate no further episodes of VT, he is currently maintaining sinus mechanism. Laboratory data reviewed, hemoglobin 10.3, platelets 246, INR 1.2, sodium 135, potassium 4.2, creatinine 0.77, magnesium 1.8, AST 62, ALT 145, alk phos 191. Blood pressure 163/79 heart rate 72 afebrile maintaining oxygen saturation on nasal cannula. Objective - Vital Signs Vital signs: Vital Signs Temp 98.3 F 09/20/17 05:23 Pulse 74 09/20/17 09:00 Resp 18 09/20/17 05:23 BP 163/79 09/20/17 05:23 Pulse Ox 94 L 09/20/17 05:23 Intake & Output 09/19/17 09/20/17 09/20/17 18:59 06:59 18:59 Intake Total 50 210 Output Total 15 Balance 50 210 -15 Weight 110.677 kg Intake: Intake, IV Titration 50 210 Amount Lactated Ringers 1,000 ml 160 @ 20 mls/hr IV .Q24H [facility] Rx#:[id number] Piperacillin-Tazobactam 3 50 50 .375 gm In Dextrose/Water 1 50ml.bag @ 12.5 mls/hr IVPB Q8HR [facility] Rx#: [id number] Output: Drainage 15 Abdomen 15 Other: Voiding Method Toilet Toilet Toilet Urinal # Voids 1 1 - Exam GENERAL: Well-appearing, well-nourished and in no acute distress. NECK: Supple without JVD or thyromegaly. LUNGS: Clear to auscultation bilaterally No rales, wheezes or rhonchi. Respiration equal and unlabored. HEART: Regular rate and rhythm with holosystolic murmur, no rubs or gallops. S1 and S2 heard. EXTREMITIES: Normal range of motion, 2+ bilateral lower extremity pitting edema. No clubbing or cyanosis. Peripheral pulses intact. - Labs CBC & Chem 7: 09/20/17 08:39 09/20/17 08:39 Labs: Abnormal Lab Results - Last 24 Hours (Table) 09/19/17 09/20/17 09/20/17 Range/Units 16:40 08:39 08:39 RBC 3.21 L 3.25 L (4.30-5.90) m/uL Hgb 10.0 L 10.3 L (13.0-17.5) gm/dL Hct 30.6 L 31.3 L (39.0-53.0) % Neutrophils # 8.0 H (1.3-7.7) k/uL Lymphocytes # 0.8 L 0.7 L (1.0-4.8) k/uL Eosinophils # 0.9 H (0-0.7) k/uL INR (<1.2) Sodium 135 L (137-145) mmol/L Chloride 91 L (98-107) mmol/L Carbon Dioxide 35 H (22-30) mmol/L Glucose 168 H (74-99) mg/dL AST 62 H (17-59) U/L ALT 145 H (21-72) U/L Alkaline Phosphatase 191 H (38-126) U/L Total Protein 5.8 L (6.3-8.2) g/dL Albumin 3.2 L (3.5-5.0) g/dL 09/20/17 Range/Units 08:39 RBC (4.30-5.90) m/uL Hgb (13.0-17.5) gm/dL Hct (39.0-53.0) % Neutrophils # (1.3-7.7) k/uL Lymphocytes # (1.0-4.8) k/uL Eosinophils # (0-0.7) k/uL INR 1.2 H (<1.2) Sodium (137-145) mmol/L Chloride (98-107) mmol/L Carbon Dioxide (22-30) mmol/L Glucose (74-99) mg/dL AST (17-59) U/L ALT (21-72) U/L Alkaline Phosphatase (38-126) U/L Total Protein (6.3-8.2) g/dL Albumin (3.5-5.0) g/dL Assessment and Plan Assessment: ASSESSMENT 1. Acute cholecystitis 2. Elevated liver enzymes 3. Coronary artery disease with recent angioplasty of RCA and mild disease of circumflex artery 4. Moderate-severe aortic stenosis 5. Paroxysmal atrial fibrillation on prison anticoagulation with coumadin s/ p ablation 6. Hypertension 7. Chronic diastolic heart failure, mild exacerbation 8. Chronic daily alcohol intake 9. Hypomagnesemia, replaced. PLAN Continue with Plavix and Coumadin and aspirin. Once INR is therapeutic aspirin can be discontinued. Ongoing telemetry monitoring. Blood pressure elevated this morning, will obtain repeat now. Incentive spirometer recommended. Further recommendations to follow. Nurse Practitioner note has been reviewed, I agree with a documented findings and plan of care. Patient was seen and examined.
--- NOTE | 2017-09-20 18:04 | P.PN ---
Subjective Progress Note Date: 09/20/17 Progress Note being dictated for Dr. Lucio. interval history: Is a 72-year-old gentleman admitted with cholelithiasis and cholecystitis with accompanying elevated LFTs and multiple other medical issues.status post robotic-assisted lysis of adhesions, subtotal cholecystectomy for acute gangrenouscholecystitis.tolerated procedure well. LFTs slowly trending down. Hemoglobin 10.6.Denies flatus or bowel movement.pain controlled.tolerating clear liquid diet with no nausea vomiting. 09/19/2017 sitting up in chair. Minimal ambulation within room. Passing flatus , no bowel movement. Tolerating diet with no nausea or vomiting. Hemoglobin stable. Eyes chest pain, palpitations or increasing shortness of breath. Pain control improving. Chest x-ray reporting possible bibasilar infiltrates, atelectasis. Antiplatelet/anticoagulation on hold as per surgery. Patient has proximal atrial fibrillation and also had a nonsustained run of V. tach last night-asymptomatic. Potassium and magnesium within normal limits. Objective - Vital Signs Vital signs: Vital Signs Temp 98.6 F 09/19/17 15:14 Pulse 68 09/19/17 16:37 Resp 18 09/19/17 16:00 BP 106/69 09/19/17 15:14 Pulse Ox 96 09/19/17 15:14 Intake & Output 09/18/17 09/19/17 09/19/17 18:59 06:59 18:59 Intake Total 100 50 Output Total 30 40 Balance -30 60 50 Weight 110.677 kg Intake: Intake, IV Titration 100 50 Amount Magnesium Sulfate-D5w Pmx 100 1 gm In Dextrose/Water 1 100ml.bag @ 100 mls/hr IVPB Q1H JULITA Rx#: [id number] Piperacillin-Tazobactam 3 50 .375 gm In Dextrose/Water 1 50ml.bag @ 12.5 mls/hr IVPB Q8HR JULITA Rx#: [id number] Output: Drainage 30 40 Abdomen 30 40 Other: Voiding Method Toilet Toilet Toilet Urinal Urinal Urinal # Voids 1 1 - Exam PHYSICAL EXAM: VITAL SIGNS: [as above] GENERAL: sitting up in chair, no acute distress,jaundiced HEENT: Conjunctivae normal. eyes normal. oromucosa moist NECK: No JVD. No thyroid enlargement. No LNs CARDIOVASCULAR: S1, S2 muffled. Positive murmur.irregular. RESPIRATION: Breath sounds diminished in the bases. No rhonchi, fine bibasilar crackles. No bronchial breathing. ABDOMEN:status post surgery, hypoactive bowel sounds, KEVIN present with sanguinous drainage LEGS: Positive edema. PSYCHIATRY: Alert and oriented -3, mood and affect normal. NERVOUS SYSTEM: Cranial N 2-12 grossly normal. Moves all 4 limbs. Diffuse weakness No focal deficits. Skin: no ulcer no rash - Labs CBC & Chem 7: 09/20/17 08:39 09/20/17 08:39 Labs: Abnormal Lab Results - Last 24 Hours (Table) 09/19/17 09/19/17 09/19/17 Range/Units 07:30 07:30 07:30 RBC 3.19 L (4.30-5.90) m/uL Hgb 9.8 L (13.0-17.5) gm/dL Hct 30.4 L (39.0-53.0) % Lymphocytes # (1.0-4.8) k/uL Eosinophils # 0.8 H (0-0.7) k/uL INR 1.2 H (<1.2) Sodium 134 L (137-145) mmol/L Chloride 91 L (98-107) mmol/L Carbon Dioxide 36 H (22-30) mmol/L Glucose 104 H (74-99) mg/dL Calcium 7.7 L (8.4-10.2) mg/dL AST 108 H (17-59) U/L ALT 176 H (21-72) U/L Alkaline Phosphatase 206 H (38-126) U/L Total Protein 5.4 L (6.3-8.2) g/dL Albumin 2.9 L (3.5-5.0) g/dL 09/19/17 Range/Units 16:40 RBC 3.21 L (4.30-5.90) m/uL Hgb 10.0 L (13.0-17.5) gm/dL Hct 30.6 L (39.0-53.0) % Lymphocytes # 0.8 L (1.0-4.8) k/uL Eosinophils # (0-0.7) k/uL INR (<1.2) Sodium (137-145) mmol/L Chloride (98-107) mmol/L Carbon Dioxide (22-30) mmol/L Glucose (74-99) mg/dL Calcium (8.4-10.2) mg/dL AST (17-59) U/L ALT (21-72) U/L Alkaline Phosphatase (38-126) U/L Total Protein (6.3-8.2) g/dL Albumin (3.5-5.0) g/dL Microbiology - Last 24 Hours (Table) 09/12/17 18:44 Blood Culture - Final Blood No Growth after 144 hours Assessment and Plan Assessment: 1. Acute cholecystitis, status post robotic-assisted lysis of adhesions, subtotal cholecystectomy for acute gangrenous cholecystitis with adhesions. 2. Elevated bilirubin with hepatic enzymes, status post obstructive jaundice, slowly improving 3. History of EtOH abuse 4. Recent cardiac catheterization with stent to the RCA 5. Postoperative anemia, expected outcome,secondary to coagulopathy present on admission,anticoagulant therapy. 6. Nonsustained run of V. tach plan: Continue on current medication regime ,monitoring and symptomatic treatment. Aggressive pulmonary toileting, incentive spirometer reinforced. Patient is a recent stent of May 2017- Per discussion between Dr. Lucio and Dr. Vanessa regarding Coumadin, aspirin, Plavix; repeat CBC now and if no drop in hemoglobin, surgery has given permission for Plavix and aspirin to be resumed today. Maintain IV antibiotics. Pain management, Diet advancement as per surgery. Prognosis guarded given multiple complex medical issues. The impression and plan of care has been dictated as directed. : I performed a history and examination of this patient, discussed the same with the dictator. I agree with the dictator's note ,documented as a scribe. Any additional findings or plans will be noted.
[2017-09-20] MEDS: WARFARIN 2.5 MG TAB PO SCH (18:54)
[2017-09-20] MEDS: ATORVASTATIN 40 MG TAB PO SCH (20:41)
[2017-09-20] MEDS: CYCLOBENZAPRINE 5 MG TAB PO SCH (20:41)
[2017-09-20] MEDS: MONTELUKAST 10 MG TAB PO SCH (20:41)
[2017-09-21] MEDS: MORPHINE SULFATE 2 MG/ML SYRINGE IV PRN (02:39)
[2017-09-21 07:28] LABS: Basophils % (A) 0 %; Eosinophils # (A) 0.9 k/uL (0-0.7); Eosinophils % (A) 10 %; HCT 30.1 % (39.0-53.0); Lymphocytes % (A) 10 %; MCH 31.6 pg (25.0-35.0); MCHC 33.1 g/dL (31.0-37.0); MCV 95.3 fL (80.0-100.0); Mean Platelet Volume 7.2; Monocytes # (A) 0.7 k/uL (0-1.0); Monocytes % (A) 8 %; Neutrophils # (A) 6.7 k/uL (1.3-7.7); Neutrophils % (A) 71 %; Platelet Count 329 k/uL (150-450); RBC 3.16 m/uL (4.30-5.90); RDW 14.4 % (11.5-15.5); WBC 9.5 k/uL (3.8-10.6)
[2017-09-21 07:29] LABS: INR 1.1 (<1.2); Prothrombin Time 10.7 sec (9.0-12.0)
[2017-09-21 07:42] LABS: ALT 104 U/L (21-72); AST 36 U/L (17-59); Alkaline Phosphatase 153 U/L (38-126); Anion Gap 9 mmol/L; Blood Urea Nitrogen 11 mg/dL (9-20); Calcium 8.2 mg/dL (8.4-10.2); Carbon Dioxide 37 mmol/L (22-30); Chloride 90 mmol/L (98-107); Glucose 106 mg/dL (74-99); Potassium 3.8 mmol/L (3.5-5.1); Sodium 136 mmol/L (137-145); Total Bilirubin 0.9 mg/dL (0.2-1.3); Total Protein 5.6 g/dL (6.3-8.2)
[2017-09-21] MEDS: SPIRONOLACTONE 25 MG TAB PO SCH ×2 (08:12→22:24)
[2017-09-21] MEDS: PIPERACILLIN-TAZOBACTAM 3.375 GM in DEXTROSE/WATER 1 50ML.BAG IVPB SCH ×3 (08:12→23:49)
[2017-09-21] MEDS: FLUTICASONE 50MCG/SPRAY NASAL 16GM EA NOSTRIL SCH ×2 (08:12→22:24)
[2017-09-21] MEDS: ASPIRIN 81 MG PO SCH (08:13)
[2017-09-21] MEDS: FUROSEMIDE 40 MG TAB PO SCH ×3 (08:13→22:25)
[2017-09-21] MEDS: PANTOPRAZOLE 40 MG TABLET PO SCH (08:13)
[2017-09-21] MEDS: MAGNESIUM OXIDE 400 MG TAB PO SCH ×2 (08:13→22:24)
[2017-09-21] MEDS: CYANOCOBALAMIN 500 MCG TAB PO SCH (08:13)
[2017-09-21] MEDS: TAMSULOSIN 0.4 MG CAP.ER.24H PO SCH (08:13)
[2017-09-21] MEDS: CLOPIDOGREL 75 MG TAB PO SCH (08:13)
[2017-09-21] MEDS: OXYBUTYNIN XL 5 MG TAB.ER.24 PO SCH (08:14)
[2017-09-21] MEDS: cycloSPORINE 0.05% OPHTH 0.4 ML DROPERETTE BOTH EYES SCH ×2 (08:14→22:22)
[2017-09-21] MEDS: METOPROLOL TARTRATE 12.5 MG TAB PO SCH ×3 (08:14→22:25)
[2017-09-21] MEDS: CHOLECALCIFEROL 1,000 UNIT TAB PO SCH (08:14)
[2017-09-21] MEDS: ASCORBIC ACID 500 MG TAB PO SCH (08:14)
--- NOTE | 2017-09-21 08:15 | CDI ---
Last Revision, March 2017 Documentation Clarification Form Date: 09/21/17 From: Nata Magaña RN Admit Date: 09/12/2017 4:39:00 PM Patient Name: Mau Mccullough V Visit Number: [id number] ATTENTION: The Clinical Documentation Specialists (CDI) and [facility] Coding Staff appreciate your assistance in clarifying documentation. Please respond to the clarification below the line at the bottom and electronically sign. The CDI & [facility] Coding staff will review the response and follow-up if needed. Please note: Queries are made part of the Legal Health Record. If you have any questions, please contact the author of this message via ITS. Dr. Nila Carrero, Documentation of COPD is located in the notes from 09/12 09/20, specification is needed- History/Risk Factors: COPD, GERD, hyperlipidemia, prostate cancer, CAD with stent, ETOH, a fib Present or past smoker: former smoker Home O2: 2L PRN Clinical Indicators: CXR: Bibasilar infiltrates, correlate for pneumonia. Atelectasis could be considered Vital Signs/Pulse Oximetry on admission: T 99.4, P 77, R 18, 120/69, 95% RA Lung and Respiratory Assessment: diminished in bases, a few scattered rhonchi Treatment: Nebulizers: Symbicort, Atrovent, O2 @ 2 liters Antibiotics: Piperacillin/Tazobactam In your professional opinion, can you please clarify if the above findings and treatment signify any of the following? Acute Exacerbation of Chronic Obstructive Pulmonary Disease (COPD) Acute on Chronic Obstructive Asthma Acute on chronic bronchitis Chronic obstructive pulmonary disease with acute lower respiratory infection Emphysema Other condition, please specify Unable to determine Please continue to document in your progress notes , under the line below and/ or in the discharge summary in order to capture severity of illness and risk of mortality. Include clinical findings that support your diagnosis. RITAD
[2017-09-21] MEDS ORDERED: CLOPIDOGREL 75 MG TAB PO SCH (09:00)
[2017-09-21] MEDS: IPRATROPIUM 0.5 MG/2.5 ML NEBU INHALATION SCH ×4 (09:08→19:30)
[2017-09-21] MEDS: SYMBICORT 160-4.5 MCG INHALER INHALATION SCH ×2 (09:08→19:30)
--- NOTE | 2017-09-21 11:14 | P.PN ---
Progress Note - Text Progress Note Date: 09/21/17 The patient is sitting up in his chair. He feels comfortable. He has no significant abdominal pain. The patient's been tolerating diet. On exam is lesser stable. His abdomen soft. Patient will be discharged home per medicine. He'll follow-up Dr. Vanessa as an outpatient.
[2017-09-21] MEDS ORDERED: MAGNESIUM SULFATE-D5W PMX 1 GM in DEXTROSE/WATER 1 100ML.BAG IVPB ONE (13:01)
[2017-09-21] MEDS ORDERED: BISACODYL 10 MG SUPP RECTAL STA (13:06)
[2017-09-21] MEDS: traMADol 50 MG TAB PO PRN ×2 (13:55→22:20)
--- NOTE | 2017-09-21 14:13 | P.PN ---
Subjective Mr. Mccullough is a pleasant 72-year-old male past medical history significant for coronary artery disease s/p angioplasty 05/2017, aortic stenosis , chronic atrial fibrillation on lobsterman anticoagulation with coumadin, diastolic dysfunction, cardiomyopathy, COPD and dyslipidemia. He follows with Dr. Nguyễn in the office. He underwent BRAYDEN secondary to aortic stenosis in May which revealed a heavily calcified aortic valve with a valve area 0.8-0.9 and a mean gradient of 28. Following that he underwent cardiac catheterization to assess for coronary artery disease which revealed circumflex artery with a lesion of approximately 50-60% proximally and 40-50% in the midportion, significant stenosis of the RCA after the bifurcation. He underwent successful angioplasty of the RCA at that time. We've been asked to see him in consultation for pre-operative evaluation prior to cholecystectomy. He states for the previous month or so he's been feeling vague intermittent symptoms abdominal discomfort, nausea, abdominal distention and dark urine. He underwent a CT of his abdomen and pelvis per his primary care physician as an outpatient that revealed findings compatible with acute cholecystitis with biliary sludge or stones layering dependently within the gallbladder neck. He was sent to the hospital for evaluation and has been seen in consultation by GI service and surgery. GI is planning for an ERCP to assess for common bile duct obstruction and surgery is tentatively for Sunday at 2 PM. Coumadin and Plavix have been placed on hold since admission for pending surgery. At the time of my exam he is seen resting comfortably in a recliner in no acute distress. He states his pain is primarily under control at this time. His abdomen is significantly distended. He denies symptoms of chest pain, shortness of breath , dizziness, diaphoresis or palpitations. He also denies PND or orthopnea. Current cardiac medications include Coumadin, Aldactone 25 mg twice a day, Lopressor 25 mg twice a day, Lasix 40 mg 3 times a day, Plavix 75 mg daily, atorvastatin 40 mg daily and aspirin 81 mg daily. Laboratory data reviewed, hemoglobin 12.5, platelets 205, INR 2.7, sodium 137, potassium 4.1, creatinine 0.92, total bilirubin 2.0, AST 102, ALP 179, alk phos 208. 09/14/2017 Mr. Mccullough is seen and examined today in no acute distress. Repeat 2-D echocardiogram yesterday revealed preserved left ventricular systolic function with ejection fraction 50-55%, severe aortic stenosis with a mean gradient of 43.85 mmHg, mild mitral regurgitation with a mean gradient across the valve 3.7 mmHg, mild TR and moderate pulmonary hypertension with an RVSP of 59.73 mmHg. He was scheduled for an MRCP yesterday was unable to complete due to body habitus. He continues to have significant abdominal discomfort and distention. Laboratory data reviewed, INR 2.2, sodium 134, potassium 4.0, creatinine 0.88 , liver enzymes are showing improvement with total bilirubin normal. Blood pressure 94/59 heart rate 72 afebrile maintaining oxygen saturation on nasal cannula 2 L. 09/16/2017 Mr. Mccullough is seen and examined sitting up in chair undergoing nebulizer treatment. He continues to complain of ongoing abdominal discomfort that seems to be worse this morning. He denies symptoms of chest pain, shortness of breath , palpitations or dizziness. Telemetry tracings have been unremarkable and indicate a sinus mechanism. He is continually maintained on a heparin infusion. He states his surgery is still tentatively planned for tomorrow at 2 PM. His heparin infusion should be discontinued 4 hours prior to surgery. Laboratory data reviewed, hemoglobin 10.7, platelets 197, INR 1.3. Blood pressure this morning 8454 heart rate 58 afebrile maintaining oxygen saturation on nasal cannula 2 L. 09/17/2017 Mr. Mccullough is seen and examined sitting up in the chair. Surgery is planned for this afternoon. Heparin will be stopped at 1000 today. He has developed some increased b/l lower extremity edema. He denies shortness of breath, chest pain, palpitations or dizziness. Telemetry tracings continue to show sinus mechanism. Blood pressure 120/59 heart rate 60 afebrile and maintain oxygen saturation on room air. Continues to complain of abdominal pain and distention. Laboratory data reviewed, hgb 10.7, plt 195, sodium 137, potassium 3.8, creatinine 0.8. Significant increase in liver enzymes from yesterday. 09/18/2017 Mr. Mccullough is seen and examined sitting up in the chair after eating breakfast. Surgery yesterday revealed an acute gangrenous cholecystitis with omental adhesions. Subtotal cholecystectomy was performed with placement of KEVIN drain. Estimated blood loss of 550cc. Continues to complain of significant abdominal discomfort and ongoing distention. Hbg 10.6, plt 210, potassium 4.3, magnesium 1.5, total bilirubin 199, AST 246, ALT 271. Blood pressure 116/66 heart rate 71 afebrile. He denies chest pain, shortness of breath, palpitations or dizziness. Telemetry tracings continue to show sinus mechanism. 09/19/2017 Mr. Mccullough is seen and examined this morning. He is sitting up in the chair. He continues to complain of abdominal pain. Denies chest pain or shortness of breath. Lower extremity edema ongoing with mild increase appreciated. Yesterday he was in and out of atrial fibrillation with controlled ventricular response. Last evening around 1900 he had a non-sustained run of 18 beats of ventricular tachycardia. He was asymptomatic with no palpitations, chest pain or dizziness. Laboratory data reviewed, hemoglobin 9.8, platelets 211, INR 1.2, sodium 134, potassium 4.2, mesion 2.2 after supplementation, creatinine 0.71, AST 108, ALT 176 and alk phos 206. Blood pressure this morning 119/60 heart rate 62 afebrile maintaining oxygen saturation on 2 L nasal cannula. Anticoagulation has been held per surgery. 09/20/2017 Mr. Mccullough seen and examined sitting up in chair. Anti-coagulation was resumed last night per primary team. Telemetry tracings indicate no further episodes of VT, he is currently maintaining sinus mechanism. Laboratory data reviewed, hemoglobin 10.3, platelets 246, INR 1.2, sodium 135, potassium 4.2, creatinine 0.77, magnesium 1.8, AST 62, ALT 145, alk phos 191. Blood pressure 163/79 heart rate 72 afebrile maintaining oxygen saturation on nasal cannula. 09/21/2017 Mr. Mccullough is seen and examined sitting up in the chair watching TV. Telemetry reveals he had a 6-beat run of VT again last night. He denies symptoms of chest pain, shortness of breath, dizziness or palpitations. Blood pressure 120/62 heart rate 68 afebrile and maintaining oxygen saturation on nasal cannula. Laboratory data reviewed, hemoglobin 10.0, INR 1.1, sodium 136, potassium 3.8, magnesium 1.6, creatinine 0.4. Objective - Vital Signs Vital signs: Vital Signs Temp 97.7 F 09/21/17 08:11 Pulse 70 09/21/17 09:18 Resp 20 09/21/17 08:11 BP 120/62 09/21/17 08:11 Pulse Ox 98 09/21/17 09:10 Intake & Output 09/20/17 09/21/17 09/21/17 18:59 06:59 18:59 Intake Total 1120 Output Total 55 15 Balance -55 1105 Weight 110.677 kg Intake: Oral 1120 Output: Drainage 55 15 Abdomen 55 15 Other: Voiding Method Toilet Toilet # Voids 2 2 - Exam GENERAL: Well-appearing, well-nourished and in no acute distress. NECK: Supple without JVD or thyromegaly. LUNGS: Clear to auscultation bilaterally No rales, wheezes or rhonchi. Respiration equal and unlabored. HEART: Regular rate and rhythm with holosystolic murmur, no rubs or gallops. S1 and S2 heard. EXTREMITIES: Normal range of motion, 1+ bilateral lower extremity pitting edema. No clubbing or cyanosis. Peripheral pulses intact. Bilateral mechelle wraps in place. - Labs CBC & Chem 7: 09/21/17 06:47 09/21/17 06:47 Labs: Abnormal Lab Results - Last 24 Hours (Table) 09/21/17 09/21/17 Range/Units 06:47 06:47 RBC 3.16 L (4.30-5.90) m/uL Hgb 10.0 L (13.0-17.5) gm/dL Hct 30.1 L (39.0-53.0) % Eosinophils # 0.9 H (0-0.7) k/uL Sodium 136 L (137-145) mmol/L Chloride 90 L (98-107) mmol/L Carbon Dioxide 37 H (22-30) mmol/L Glucose 106 H (74-99) mg/dL Calcium 8.2 L (8.4-10.2) mg/dL ALT 104 H (21-72) U/L Alkaline Phosphatase 153 H (38-126) U/L Total Protein 5.6 L (6.3-8.2) g/dL Albumin 3.0 L (3.5-5.0) g/dL Assessment and Plan Assessment: ASSESSMENT 1. Acute cholecystitis, s/p sub total cholectomy 2. Elevated liver enzymes 3. Coronary artery disease with recent angioplasty of RCA and mild disease of circumflex artery 4. Moderate-severe aortic stenosis 5. Paroxysmal atrial fibrillation on lobsterman anticoagulation with coumadin s/ p ablation 6. Hypertension 7. Chronic diastolic heart failure, mild exacerbation 8. Chronic daily alcohol intake 9. Hypomagnesemia, replaced. 10. Non-sustained ventricular tachycardia PLAN Ongoing telemetry monitoring. Continue with Plavix and Coumadin and aspirin. Once INR is therapeutic aspirin can be discontinued. Pharmacy to dose coumadin. Increase magnesium to 400 mg BID. Incentive spirometer recommended and increase activity as tolerated. Further recommendations to follow. Nurse Practitioner note has been reviewed, I agree with a documented findings and plan of care. Patient was seen and examined.
--- NOTE | 2017-09-21 14:22 | P.OP ---
Date of Procedure: 09/17/17 Description of Procedure: Date of Procedure: 09/17/17 SURGEON: TASNEEM SOLIS MD PREOPERATIVE DIAGNOSES: 1. Acute cholecystitis 2. Peripheral vascular occlusive disease 3. Ischemic cardiomyopathy with congestive heart failure 4. History of cardiac catherization with stent placement. 5. History of carotid artery occlusion. 6. Morbid obesity due to excess calories, BMI 35.0 7. Elevated liver enzymes 8. Chronic anticoagulant therapy 9. Chronic antiplatelet therapy 10. Chronic obstructive pulmonary disease 11. Asthma 12. History of prostate cancer 13. Hyperlipidemia 14. Obstructive sleep apnea 15. Gastroesophageal reflux disease 16. Aortic stenosis 17. Atrial fibrillation, paroxysmal 18. Right upper quadrant pain. POSTOPERATIVE DIAGNOSES: 1. Acute gangrenous cholecystitis 2. Peripheral vascular occlusive disease 3. Ischemic cardiomyopathy with congestive heart failure 4. History of cardiac catherization with stent placement. 5. History of carotid artery occlusion. 6. Morbid obesity due to excess calories, BMI 35.0 7. Elevated liver enzymes 8. Chronic anticoagulant therapy 9. Chronic antiplatelet therapy 10. Chronic obstructive pulmonary disease 11. Asthma 12. History of prostate cancer 13. Hyperlipidemia 14. Obstructive sleep apnea 15. Gastroesophageal reflux disease 16. Aortic stenosis 17. Atrial fibrillation, paroxysmal 18. Right upper quadrant pain. 19. Hepatomegaly 20. Severe intra-abdominal adhesions 21. Diastasis recti OPERATION: 1. Robotic-assisted da Renato Xi laparoscopic extensive lysis of adhesions over 1.5 hrs, pericholecystic adhesions 2. Robotic-assisted da Renato Xi laparoscopic sub-total cholecystectomy, multiport with FIREFLY 3. Placement of #19 round KEVIN drain hepatic fossa Anesthesia: YESY local Shale Planer Operator #1: Chela Stringer Estimated Blood Loss (ml): 550 Pathology: other (Subtotal cholecystectomy) Disposition: floor Condition: stable COMPLICATIONS: None. Operative Findings: 1. Moderate chronic coagulopathy adding complexity to the case 2. Severe intra-abdominal adhesions from previous laparotomy 3. Acute gangrenous cholecystitis with omental adhesions throughout the gallbladder 4. Obscured cystic duct with severe central adiposity requiring subtotal cholecystectomy with retained gallbladder infundibulum 5. Complete cystic duct obstruction confirmed with firefly 6. Dome down technique performed for mobilization of the gallbladder 7. Gallbladder removed using 3 fires of 45 mm green loads 8. Placement of KEVIN drain right hepatic fossa 9. Severely thickened gallbladder wall requiring smart technology robotic stapler firing 10. All ports positioned along the right upper quadrant secondary to severe midline intra-abdominal adhesions 11. Moderate to severe diastases recti of the epigastrium INDICATIONS: The patient is a 72-year-old male who presents with acute cholecystitis and elevated liver enzymes. Surgical intervention with a laparoscopic cholecystectomy was described at length. Informed consent was obtained. Robotic assisted laparoscopic approach was described. Benefits and risks of the procedure including but not limited to bleeding, infection, injury to the biliary tree was described. Informed consent was obtained. DESCRIPTION OF PROCEDURE: Patient was brought to the operating room, placed in supine position. After general induction, the abdomen had been prepped and draped in standard sterile fashion. The robotic da Renato XI system was primed. After a timeout protocol was performed, the patient had been prepped and draped in standard sterile fashion. The patient was injected with indocyanine green. A 5 mm 0 degrees laparoscopic trocar entry was performed along the right upper quadrant. The abdomen was insufflated to 15 mmHg which he tolerated well. Diagnostic laparoscopy demonstrated severe hepatomegaly with complete obscurity of the gallbladder. Next, additional 8 mm robotic ports were placed along the right upper abdomen along the right lateral abdominal wall, right mid-clavicular line and to the right of the midline along the costal margin. The robot was docked along the left lateral abdomen. The patient was repositioned in steep reverse Trendelenburg position, over 14-degrees. Using a grasper for arm 3, a grasper for arm 4, including vessel sealer for arm 1, the robotic system was docked and primed as described. Instruments were interchanged by the sales assistant institutional sales including hook Bovie cautery and clip appliers. The gallbladder was completely obscured by omental fat. More than 1.5 hours was used to identify and mobilize the gallbladder from the omentum. Additionally , complete cystic duct obstruction was confirmed as indocyanine green was evident along the liver and common bile duct. The gallbladder was edematous and tense consistent with hydrops cholecystitis. During dissection, iatrogenic decompression of the gallbladder confirmed hydrops. Adhesions were identified along the infundibulum of the gallbladder and addressed using hook cautery and vessel sealer. The gallbladder fundus was retracted towards the abdominal wall. The infundibulum and cystic structures were completely obscured by his intra- abdominal fat. A dome down technique was performed freeing the gallbladder to the infundibulum. Severe adhesions obscured the cystic structures with small bowel adherent to the cystic duct. Electro-Bovie cautery was used to remove the gallbladder from the hepatic fossa using dome down approach prior to resecting the gallbladder at the infundibulum. Hemostasis was checked. Bleeding was addressed with gauze and pressure applied to the liver bed. An additional 5-mm port was placed inferior to the robotic ports to allow for suctioning. To prevent any injury of the small bowel and common bile duct, the gallbladder was resected using 3 fires of 45 mm MetaPack technology robotic stapler. The epigastric port was exchanged to 12-mm port to allow for the stapler fire. The robot was undocked. I re-scrubbed into the case. Using a 10 mm Endo Catch bag via the epigastric incision, the specimen was removed from the abdominal cavity. A round #19 KEVIN drain was placed along the hepatic fossa and exited via the right lateral abdominal wall. A drain stitch using 2-0 nylon was placed. All incisions were cleansed using dilute hydrogen peroxide. Optifoam surgical dressing was placed along the right lateral port. The fascial defect was closed using 0-Vicryl. All pneumoperitoneum instruments were evacuated from the abdominal cavity. The incisions were re-approximated using 4-0 Monocryl in an interrupted subcuticular fashion. Please note along the trocar sites, local anesthetic was placed as a field block prior to insertion of all instruments. Liquid glue was applied to the skin. At the end of the procedure needle, sponge, and instrument count had been verified correct by the science technician. The patient was transferred to postanesthesia care unit in guarded condition.
--- NOTE | 2017-09-21 17:04 | P.PN ---
Subjective Progress Note Date: 09/20/17 Progress Note being dictated for Dr. Lucio. interval history: Is a 72-year-old gentleman admitted with cholelithiasis and cholecystitis with accompanying elevated LFTs and multiple other medical issues.status post robotic-assisted lysis of adhesions, subtotal cholecystectomy for acute gangrenouscholecystitis.tolerated procedure well. LFTs slowly trending down. Hemoglobin 10.6.Denies flatus or bowel movement.pain controlled.tolerating clear liquid diet with no nausea vomiting. 09/19/2017 sitting up in chair. Minimal ambulation within room. Passing flatus , no bowel movement. Tolerating diet with no nausea or vomiting. Hemoglobin stable. Eyes chest pain, palpitations or increasing shortness of breath. Pain control improving. Chest x-ray reporting possible bibasilar infiltrates, atelectasis. Antiplatelet/anticoagulation on hold as per surgery. Patient has proximal atrial fibrillation and also had a nonsustained run of V. tach last night-asymptomatic. Potassium and magnesium within normal limits. 09/20/17 sitting up in chair, passing flatus, no bowel movement. Tolerating diet with no nausea or vomiting. Abdomen distended. States feels more bloated. T bili 0.9, LFTs slowly trending down. Abdominal pain improving. Ambulating with in room. Coumadin, aspirin, Plavix resumed. INR 1.2. Telemetry sinus rhythm with no further runs of V. tach. Afebrile. Maintaining O2 sats in the high 90s on 2 L nasal cannula. Objective - Vital Signs Vital signs: Vital Signs Temp 98.6 F 09/20/17 13:48 Pulse 70 09/20/17 15:42 Resp 20 09/20/17 13:48 BP 117/58 09/20/17 13:48 Pulse Ox 98 09/20/17 13:48 Intake & Output 09/19/17 09/20/17 09/20/17 18:59 06:59 18:59 Intake Total 50 210 Output Total 15 Balance 50 210 -15 Weight 110.677 kg Intake: Intake, IV Titration 50 210 Amount Lactated Ringers 1,000 ml 160 @ 20 mls/hr IV .Q24H [facility] Rx#:[id number] Piperacillin-Tazobactam 3 50 50 .375 gm In Dextrose/Water 1 50ml.bag @ 12.5 mls/hr IVPB Q8HR [facility] Rx#: [id number] Output: Drainage 15 Abdomen 15 Other: Voiding Method Toilet Toilet Toilet Urinal # Voids 1 1 2 - Exam PHYSICAL EXAM: VITAL SIGNS: [as above] GENERAL: sitting up in chair, no acute distress, HEENT: Conjunctivae normal. eyes normal. oral mucosa moist NECK: No JVD. No thyroid enlargement. No LNs CARDIOVASCULAR: S1, S2 muffled. Positive murmur.irregular, controlled ventricular rate. RESPIRATION: Breath sounds diminished in the bases. No rhonchi, fine bibasilar crackles. No bronchial breathing. ABDOMEN:status post surgery, distended, positive bowel sounds. LEGS: Positive edema. PSYCHIATRY: Alert and oriented -3, mood and affect normal. NERVOUS SYSTEM: Cranial N 2-12 grossly normal. Moves all 4 limbs. Diffuse weakness No focal deficits. - Labs CBC & Chem 7: 09/21/17 06:47 09/21/17 06:47 Labs: Abnormal Lab Results - Last 24 Hours (Table) 09/20/17 09/20/17 09/20/17 Range/Units 08:39 08:39 08:39 RBC 3.25 L (4.30-5.90) m/uL Hgb 10.3 L (13.0-17.5) gm/dL Hct 31.3 L (39.0-53.0) % Neutrophils # 8.0 H (1.3-7.7) k/uL Lymphocytes # 0.7 L (1.0-4.8) k/uL Eosinophils # 0.9 H (0-0.7) k/uL INR 1.2 H (<1.2) Sodium 135 L (137-145) mmol/L Chloride 91 L (98-107) mmol/L Carbon Dioxide 35 H (22-30) mmol/L Glucose 168 H (74-99) mg/dL AST 62 H (17-59) U/L ALT 145 H (21-72) U/L Alkaline Phosphatase 191 H (38-126) U/L Total Protein 5.8 L (6.3-8.2) g/dL Albumin 3.2 L (3.5-5.0) g/dL Assessment and Plan Assessment: 1. Acute cholecystitis, status post robotic-assisted lysis of adhesions, subtotal cholecystectomy for acute gangrenous cholecystitis with adhesions. 2. Elevated bilirubin with hepatic enzymes, status post obstructive jaundice, slowly improving 3. History of EtOH abuse 4. Recent cardiac catheterization with stent to the RCA 5. Postoperative anemia, expected outcome 6. Nonsustained run of V. tach 7. Paroxysmal atrial fibrillation, status post ablation 8. Hypomagnesemia plan: Continue on current medication regime ,monitoring and symptomatic treatment. Maintain Zosyn, Coumadin, aspirin, Plavix. Increase activity as tolerated. Encouraged to ambulate in hallway with assistance. Aggressive pulmonary toileting with incentive spirometer reinforced. Close monitoring of electrolytes with repeat labs including magnesium in a.m. The impression and plan of care has been dictated as directed. : I performed a history and examination of this patient, discussed the same with the dictator. I agree with the dictator's note ,documented as a scribe. Any additional findings or plans will be noted.
--- NOTE | 2017-09-21 17:12 | P.PN ---
Subjective Progress Note Date: 09/21/17 Progress Note being dictated for Dr. Lucio. interval history: Is a 72-year-old gentleman admitted with cholelithiasis and cholecystitis with accompanying elevated LFTs and multiple other medical issues.status post robotic-assisted lysis of adhesions, subtotal cholecystectomy for acute gangrenouscholecystitis.tolerated procedure well. LFTs slowly trending down. Hemoglobin 10.6.Denies flatus or bowel movement.pain controlled.tolerating clear liquid diet with no nausea vomiting. 09/19/2017 sitting up in chair. Minimal ambulation within room. Passing flatus , no bowel movement. Tolerating diet with no nausea or vomiting. Hemoglobin stable. Eyes chest pain, palpitations or increasing shortness of breath. Pain control improving. Chest x-ray reporting possible bibasilar infiltrates, atelectasis. Antiplatelet/anticoagulation on hold as per surgery. Patient has proximal atrial fibrillation and also had a nonsustained run of V. tach last night-asymptomatic. Potassium and magnesium within normal limits. 09/20/17 sitting up in chair, passing flatus, no bowel movement. Tolerating diet with no nausea or vomiting. Abdomen distended. States feels more bloated. T bili 0.9, LFTs slowly trending down. Abdominal pain improving. Ambulating with in room. Coumadin, aspirin, Plavix resumed. INR 1.2. Telemetry sinus rhythm with no further runs of V. tach. Afebrile. Maintaining O2 sats in the high 90s on 2 L nasal cannula. 09/21/2017 tolerating low fat diet with no nausea or vomiting. Positive flatus , No bowel movement; abdomen more firm, more distended compared to yesterday. Patient had another run of V. tach last night, nonsustained, 5 beats, asymptomatic. Magnesium 1.6. Afebrile. INR 1.1. Objective - Vital Signs Vital signs: Vital Signs Temp 98 F 09/21/17 15:02 Pulse 72 09/21/17 15:02 Resp 20 09/21/17 15:02 BP 125/63 09/21/17 15:02 Pulse Ox 98 09/21/17 15:02 Intake & Output 09/20/17 09/21/17 09/21/17 18:59 06:59 18:59 Intake Total 1120 50 Output Total 55 15 Balance -55 1105 50 Weight 110.677 kg Intake: Intake, IV Titration 50 Amount Piperacillin-Tazobactam 3 50 .375 gm In Dextrose/Water 1 50ml.bag @ 12.5 mls/hr IVPB Q8HR [facility] Rx#: [id number] Oral 1120 Output: Drainage 55 15 Abdomen 55 15 Other: Voiding Method Toilet Toilet Toilet # Voids 2 2 - Exam PHYSICAL EXAM: VITAL SIGNS: [as above] GENERAL: sitting up in chair, no acute distress, HEENT: Conjunctivae normal. eyes normal. oral mucosa moist NECK: No JVD. No thyroid enlargement. No LNs CARDIOVASCULAR: S1, S2 muffled. Positive murmur.irregular, controlled ventricular rate. RESPIRATION: Breath sounds diminished in the bases. No rhonchi, fine bibasilar crackles. ABDOMEN:status post surgery, distended, positive bowel sounds. LEGS: Positive edema. PSYCHIATRY: Alert and oriented -3, mood and affect normal. NERVOUS SYSTEM: Cranial N 2-12 grossly normal. Moves all 4 limbs. Diffuse weakness No focal deficits. - Labs CBC & Chem 7: 09/21/17 06:47 09/21/17 06:47 Labs: Abnormal Lab Results - Last 24 Hours (Table) 09/21/17 09/21/17 Range/Units 06:47 06:47 RBC 3.16 L (4.30-5.90) m/uL Hgb 10.0 L (13.0-17.5) gm/dL Hct 30.1 L (39.0-53.0) % Eosinophils # 0.9 H (0-0.7) k/uL Sodium 136 L (137-145) mmol/L Chloride 90 L (98-107) mmol/L Carbon Dioxide 37 H (22-30) mmol/L Glucose 106 H (74-99) mg/dL Calcium 8.2 L (8.4-10.2) mg/dL ALT 104 H (21-72) U/L Alkaline Phosphatase 153 H (38-126) U/L Total Protein 5.6 L (6.3-8.2) g/dL Albumin 3.0 L (3.5-5.0) g/dL Assessment and Plan Assessment: 1. Acute cholecystitis, status post robotic-assisted lysis of adhesions, subtotal cholecystectomy for acute gangrenous cholecystitis with adhesions. 2. Elevated bilirubin with hepatic enzymes, status post obstructive jaundice, slowly improving 3. History of EtOH abuse 4. Recent cardiac catheterization with stent to the RCA 5. Postoperative anemia, expected outcome 6. Nonsustained runs of V. tach 7. Paroxysmal atrial fibrillation, status post ablation 8. Hypomagnesemia plan: Continue on current medication regime , aspirin, Coumadin, Plavix, monitoring and symptomatic treatment. Electrolyte supplementation, repeat labs in a.m. Increase activity as tolerated. Encouraged to ambulate in hallway with assistance. Dulcolax suppository 1. Aggressive pulmonary toileting with incentive spirometer reinforced. Had planned on discharging today, but given recurrent arrhythmia, discharge held. Further cardiac evaluation in a.m. with Dr. Rocha. The impression and plan of care has been dictated as directed. : I performed a history and examination of this patient, discussed the same with the dictator. I agree with the dictator's note ,documented as a scribe. Any additional findings or plans will be noted.
[2017-09-21] MEDS: WARFARIN 2.5 MG TAB PO SCH (17:24)
[2017-09-21] MEDS: ATORVASTATIN 40 MG TAB PO SCH (22:22)
[2017-09-21] MEDS: CYCLOBENZAPRINE 5 MG TAB PO SCH (22:22)
[2017-09-21] MEDS: MONTELUKAST 10 MG TAB PO SCH (22:24)
[2017-09-22] MEDS: traMADol 50 MG TAB PO PRN (05:18)
[2017-09-22 05:46] VITALS: TEMP 98.5
[2017-09-22 07:34] LABS: Basophils % (A) 0 %; Eosinophils # (A) 0.8 k/uL (0-0.7); Eosinophils % (A) 10 %; HCT 29.6 % (39.0-53.0); HGB 9.6 gm/dL (13.0-17.5); Lymphocytes # (A) 0.9 k/uL (1.0-4.8); Lymphocytes % (A) 11 %; MCH 31.2 pg (25.0-35.0); MCHC 32.5 g/dL (31.0-37.0); Mean Platelet Volume 6.8; Monocytes # (A) 0.6 k/uL (0-1.0); Monocytes % (A) 7 %; Neutrophils # (A) 5.7 k/uL (1.3-7.7); Neutrophils % (A) 70 %; Platelet Count 347 k/uL (150-450); RBC 3.08 m/uL (4.30-5.90); RDW 14.1 % (11.5-15.5); WBC 8.1 k/uL (3.8-10.6)
[2017-09-22 07:41] LABS: INR 1.1 (<1.2)
[2017-09-22] MEDS: cycloSPORINE 0.05% OPHTH 0.4 ML DROPERETTE BOTH EYES SCH (07:46)
[2017-09-22] MEDS: CHOLECALCIFEROL 1,000 UNIT TAB PO SCH (07:47)
[2017-09-22] MEDS: ASCORBIC ACID 500 MG TAB PO SCH (07:47)
[2017-09-22] MEDS: FUROSEMIDE 40 MG TAB PO SCH ×2 (07:47→15:49)
[2017-09-22] MEDS: CLOPIDOGREL 75 MG TAB PO SCH (07:47)
[2017-09-22] MEDS: MAGNESIUM OXIDE 400 MG TAB PO SCH (07:47)
[2017-09-22] MEDS: PANTOPRAZOLE 40 MG TABLET PO SCH (07:47)
[2017-09-22] MEDS: METOPROLOL TARTRATE 12.5 MG TAB PO SCH ×2 (07:47→15:49)
[2017-09-22] MEDS: CYANOCOBALAMIN 500 MCG TAB PO SCH (07:47)
[2017-09-22] MEDS: OXYBUTYNIN XL 5 MG TAB.ER.24 PO SCH (07:47)
[2017-09-22] MEDS: TAMSULOSIN 0.4 MG CAP.ER.24H PO SCH (07:47)
[2017-09-22] MEDS: ASPIRIN 81 MG PO SCH (07:47)
[2017-09-22] MEDS: PIPERACILLIN-TAZOBACTAM 3.375 GM in DEXTROSE/WATER 1 50ML.BAG IVPB SCH ×2 (07:48→15:48)
[2017-09-22] MEDS: FLUTICASONE 50MCG/SPRAY NASAL 16GM EA NOSTRIL SCH (07:48)
[2017-09-22] MEDS: SPIRONOLACTONE 25 MG TAB PO SCH (07:48)
[2017-09-22 07:49] LABS: Anion Gap 8 mmol/L; Blood Urea Nitrogen 11 mg/dL (9-20); Calcium 8.7 mg/dL (8.4-10.2); Carbon Dioxide 38 mmol/L (22-30); Chloride 90 mmol/L (98-107); Glucose 120 mg/dL (74-99); Magnesium 1.8 mg/dL (1.6-2.3); Potassium 3.9 mmol/L (3.5-5.1); Sodium 136 mmol/L (137-145)
[2017-09-22] MEDS: SYMBICORT 160-4.5 MCG INHALER INHALATION SCH (09:03)
[2017-09-22] MEDS: IPRATROPIUM 0.5 MG/2.5 ML NEBU INHALATION SCH ×3 (09:03→15:34)
--- NOTE | 2017-09-22 09:34 | P.PN ---
Progress Note - Text Progress Note Date: 09/22/17 Patient resting comfortably in his bed. He has minimal complaints of abdominal pain. He is tolerating diet. On exam his vital signs are stable. His abdomen soft. Status post colostomy for acute cholecystitis cystitis. Patient is doing well surgically. He'll be discharged home per the medical service.
[2017-09-22 15:16] VITALS: BP 127/78; RESP 16
[2017-09-22 15:45] VITALS: PULSE 72
--- NOTE | 2017-09-22 15:47 | P.DS ---
Providers Date of admission: 09/12/17 16:39 Attending physician: Nila Carrero Consults: 09/12/17 16:10 Consult Physician Stat Consulting Provider: Mayda Morales Consult Reason/Comments: Cholecystitis Do you want consulting provider notified?: Already Contacted 09/12/17 16:58 Consult Physician Routine Consulting Provider: Ajith Nguyễn Consult Reason/Comments: afib coumadin Do you want consulting provider notified?: Yes [facility] Course: 72-year-old gentleman admitted with cholelithiasis and cholecystitis with accompanying elevated LFTs and multiple other medical issues.status post robotic -assisted lysis of adhesions, subtotal cholecystectomy for acute gangrenouscholecystitis.tolerated procedure well. LFTs slowly trending down. Hemoglobin 10.6.Denies flatus or bowel movement.pain controlled.tolerating clear liquid diet with no nausea vomiting. 09/19/2017 sitting up in chair. Minimal ambulation within room. Passing flatus , no bowel movement. Tolerating diet with no nausea or vomiting. Hemoglobin stable. Eyes chest pain, palpitations or increasing shortness of breath. Pain control improving. Chest x-ray reporting possible bibasilar infiltrates, atelectasis. Antiplatelet/anticoagulation on hold as per surgery. Patient has proximal atrial fibrillation and also had a nonsustained run of V. tach last night-asymptomatic. Potassium and magnesium within normal limits. 09/20/17 sitting up in chair, passing flatus, no bowel movement. Tolerating diet with no nausea or vomiting. Abdomen distended. States feels more bloated. T bili 0.9, LFTs slowly trending down. Abdominal pain improving. Ambulating with in room. Coumadin, aspirin, Plavix resumed. INR 1.2. Telemetry sinus rhythm with no further runs of V. tach. Afebrile. Maintaining O2 sats in the high 90s on 2 L nasal cannula. 09/21/2017 tolerating low fat diet with no nausea or vomiting. Positive flatus , No bowel movement; abdomen more firm, more distended compared to yesterday. Patient had another run of V. tach last night, nonsustained, 5 beats, asymptomatic. Magnesium 1.6. Afebrile. INR 1.1. 09/22/2017 Patient is awaiting clearance from cardiology. Patient had a nonsustained VT day before night last night patient did not have any such episodes patient received magnesium supplementation. We're able to reach cardiology patient will be discharged. Patient had a bowel movement since yesterday feeling much better today. Patient is also being discharged on 5 days of Augmentin PHYSICAL EXAM: VITAL SIGNS: Stable GENERAL: sitting up in chair, no acute distress, HEENT: Conjunctivae normal. eyes normal. oral mucosa moist NECK: No JVD. No thyroid enlargement. No LNs CARDIOVASCULAR: S1, S2 muffled. Positive murmur.irregular, controlled ventricular rate. RESPIRATION: Breath sounds diminished in the bases. No rhonchi, fine bibasilar crackles. ABDOMEN:status post surgery, distention improved, positive bowel sounds. LEGS: Positive edema. PSYCHIATRY: Alert and oriented -3, mood and affect normal. NERVOUS SYSTEM: Cranial N 2-12 grossly normal. Moves all 4 limbs. Diffuse weakness No focal deficits. Assessment and Plan Assessment: 1. Acute cholecystitis, status post robotic-assisted lysis of adhesions, subtotal cholecystectomy for acute gangrenous cholecystitis with adhesions. 2. Elevated bilirubin with hepatic enzymes, status post obstructive jaundice, slowly improving 3. History of EtOH abuse 4. Recent cardiac catheterization with stent to the RCA 5. Postoperative anemia, expected outcome 6. Nonsustained runs of V. tach 7. Paroxysmal atrial fibrillation, status post ablation 8. Hypomagnesemia Patient Condition at Discharge: Stable Plan - Discharge Summary Discharge Rx Participant: No New Discharge Prescriptions: No Action Montelukast [Singulair] 10 mg PO HS Tamsulosin [Flomax] 0.4 mg PO QAM Spironolactone 25 mg PO BID cycloSPORINE [Restasis] 1 drop BOTH EYES BID Cholecalciferol [Vitamin D3] 2,000 unit PO DAILY Cyanocobalamin (Vitamin B-12) [Vitamin B-12] 2,500 mcg PO DAILY Pantoprazole Sodium [Protonix] 40 mg PO BID Magnesium Oxide [Mag-Ox] 250 mg PO BID Loratadine [Claritin] 10 mg PO DAILY PRN PRN Reason: Allergy Symptoms Ascorbic Acid [Vitamin C] 1,000 mg PO DAILY Metoprolol Tartrate [Lopressor] 25 mg PO BID Fluticasone Nasal [place] [Flonase Nasal [place]] 2 spr EA NOSTRIL BID Tiotropium 18 Mcg/Puff [Spiriva] 1 cap INHALATION RT-HS Budesonide-Formot 160-4.5 Mcg [Symbicort 160-4.5 Mcg Inhaler] 2 puff INHALATION RT-BID Atorvastatin [Lipitor] 40 mg PO HS Solifenacin Succinate [Vesicare] 5 mg PO QAM Albuterol Nebulized [Ventolin Nebulized] 2.5 mg INHALATION RT-QID PRN PRN Reason: Shortness Of Breath Cyclobenzaprine [Flexeril] 5 mg PO HS Warfarin [Coumadin] 2.5 mg PO QUINN Docusate [Colace] 100 mg PO QID Nitroglycerin Sl Tabs [Nitrostat] 0.4 mg SUBLINGUAL Q5M PRN #25 tab PRN Reason: Chest Pain Potassium 198 mg PO DAILY Furosemide [Lasix] 40 mg PO TID Aspirin EC [Ecotrin Low Dose] 81 mg PO DAILY Clopidogrel [Plavix] 75 mg PO HS Warfarin [Coumadin] 3.75 mg PO MOTUWETHFRSA Discharge Medication List Montelukast [Singulair] 10 mg PO HS 09/09/13 [History] Tamsulosin [Flomax] 0.4 mg PO QAM 09/09/13 [History] Spironolactone 25 mg PO BID 04/03/14 [History] Cholecalciferol [Vitamin D3] 2,000 unit PO DAILY 06/09/15 [History] cycloSPORINE [Restasis] 1 drop BOTH EYES BID 06/09/15 [History] Ascorbic Acid [Vitamin C] 1,000 mg PO DAILY 08/07/16 [History] Budesonide-Formot 160-4.5 Mcg [Symbicort 160-4.5 Mcg Inhaler] 2 puff INHALATION RT-BID 08/07/16 [History] Cyanocobalamin (Vitamin B-12) [Vitamin B-12] 2,500 mcg PO DAILY 08/07/16 [ History] Fluticasone Nasal [place] [Flonase Nasal [place]] 2 spr EA NOSTRIL BID 08/07/16 [ History] Loratadine [Claritin] 10 mg PO DAILY PRN 08/07/16 [History] Magnesium Oxide [Mag-Ox] 250 mg PO BID 08/07/16 [History] Metoprolol Tartrate [Lopressor] 25 mg PO BID 08/07/16 [History] Pantoprazole Sodium [Protonix] 40 mg PO BID 08/07/16 [History] Tiotropium 18 Mcg/Puff [Spiriva] 1 cap INHALATION RT-HS 08/07/16 [History] Albuterol Nebulized [Ventolin Nebulized] 2.5 mg INHALATION RT-QID PRN 05/02/17 [ History] Atorvastatin [Lipitor] 40 mg PO HS 05/02/17 [History] Cyclobenzaprine [Flexeril] 5 mg PO HS 05/02/17 [History] Solifenacin Succinate [Vesicare] 5 mg PO QAM 05/02/17 [History] Docusate [Colace] 100 mg PO QID 06/04/17 [History] Warfarin [Coumadin] 2.5 mg PO QUINN 06/04/17 [History] Nitroglycerin Sl Tabs [Nitrostat] 0.4 mg SUBLINGUAL Q5M PRN #25 tab 06/07/17 [Rx ] Furosemide [Lasix] 40 mg PO TID 06/20/17 [History] Potassium 198 mg PO DAILY 06/20/17 [History] Aspirin EC [Ecotrin Low Dose] 81 mg PO DAILY 09/12/17 [History] Clopidogrel [Plavix] 75 mg PO HS 09/12/17 [History] Warfarin [Coumadin] 3.75 mg PO MOTUWETHFRSA 09/12/17 [History] Follow up Appointment(s)/Referral(s): Mayda Morales MD [STAFF PHYSICIAN] - 10/04/17 Karl Self DO [Primary Care Provider] - 1-2 days [facility] Visiting Nurse, [NON-STAFF] - As Needed Patient Instructions/Handouts: Low Fat Diet (DC), Darren-Bañuelos Drain Care (DC) , Laparoscopic Cholecystectomy (DC) Activity/Diet/Wound Care/Special Instructions: Continue KEVIN until removed by the surgeon. No bath tub soaks. May shower. Change dressing daily. No tub bath for six weeks. Shower daily. No lifting over 10 pounds for the next 6 weeks. Monitor KEVIN drain and record. May use ice packs to surgical site. No driving while taking narcotic for pain. Discharge Disposition: HOME WITH HOME HEALTH SERVICES
[2017-09-22] MEDS ORDERED: WARFARIN 5 MG TAB PO ONE (18:00)
[2017-09-23] MEDS ORDERED: WARFARIN 2.5 MG TAB PO SCH (18:00)
[2017-09-24] MEDS ORDERED: WARFARIN 2.5 MG TAB PO SCH (18:00)
== END 2017-09-22 18:23 | disposition home health service (06) | DRG 417 ==
LOC: EC 14:31 → SUPCPDRO 14:40 → EDSTATUS 14:40 → 3SUR 16:39 → 5MS5E 09-18 09:23
PROVIDERS: ADMIT Hospitalist; ATTEND Hospitalist
PROC: 0DNU4ZZ Release Omentum, Percutaneous Endoscopic Approach (ICD-10-PCS; 2017-09-17)
PROC: 8E0W4CZ Robotic Assisted Procedure of Trunk Region, Percutaneous Endoscopic Approach (ICD-10-PCS; 2017-09-17)
PROC: 0FB44ZZ Excision of Gallbladder, Percutaneous Endoscopic Approach (ICD-10-PCS; principal; 2017-09-17 12:50)
DX: K80.01 Calculus of gallbladder with acute cholecystitis with obstruction (principal); I50.33 Acute on chronic diastolic (congestive) heart failure; Q79.59 Other congenital malformations of abdominal wall; D68.32 Hemorrhagic disorder due to extrinsic circulating anticoagulants; E87.1 Hypo-osmolality and hyponatremia; I47.2 Ventricular tachycardia; K82.1 Hydrops of gallbladder; J98.11 Atelectasis; K80.11 Calculus of gallbladder with chronic cholecystitis with obstruction; D64.9 Anemia, unspecified; T45.515A Adverse effect of anticoagulants, initial encounter; E66.01 Morbid (severe) obesity due to excess calories; Z68.35 Body mass index [BMI] 35.0-35.9, adult; E78.5 Hyperlipidemia, unspecified; E83.42 Hypomagnesemia; F10.20 Alcohol dependence, uncomplicated; G47.33 Obstructive sleep apnea (adult) (pediatric); I08.0 Rheumatic disorders of both mitral and aortic valves; I11.0 Hypertensive heart disease with heart failure; I25.10 Atherosclerotic heart disease of native coronary artery without angina pectoris; I25.5 Ischemic cardiomyopathy; I27.20 Pulmonary hypertension, unspecified; I48.0 Paroxysmal atrial fibrillation; I48.2 Chronic atrial fibrillation; I73.9 Peripheral vascular disease, unspecified; J44.9 Chronic obstructive pulmonary disease, unspecified; K21.9 Gastro-esophageal reflux disease without esophagitis; K40.90 Unilateral inguinal hernia, without obstruction or gangrene, not specified as recurrent; K44.9 Diaphragmatic hernia without obstruction or gangrene; K66.0 Peritoneal adhesions (postprocedural) (postinfection); M19.90 Unspecified osteoarthritis, unspecified site; Z79.01 Long term (current) use of anticoagulants; Z79.02 Long term (current) use of antithrombotics/antiplatelets; Z79.51 Long term (current) use of inhaled steroids; Z79.82 Long term (current) use of aspirin; Z79.899 Other long term (current) drug therapy; Z87.442 Personal history of urinary calculi; Z87.891 Personal history of nicotine dependence; Z95.5 Presence of coronary angioplasty implant and graft; Z85.46 Personal history of malignant neoplasm of prostate
CPT/HCPCS: 36415; 71045; 74177; 80048; 80053; 80074; 81001; 82565; 83735; 83880; 84520; 85025; 85610; 85730; 87040; 87086; 88304; 93005; 93306; 94640; 94760; 96361; 96365; 96375; 99285

== ENCOUNTER → 2019-05-28 | Outpatient (CLI) | payer BC, MEDICARE ==
[2019-05-28 13:49] LABS: HCT 46.3 % (39.0-53.0); HGB 14.6 gm/dL (13.0-17.5); MCH 31.6 pg (25.0-35.0); MCHC 31.5 g/dL (31.0-37.0); MCV 100.4 fL (80.0-100.0); Macrocytosis Slight; Mean Platelet Volume 7.4; Platelet Count 232 k/uL (150-450); RBC 4.61 m/uL (4.30-5.90); RDW 14.3 % (11.5-15.5); WBC 6.7 k/uL (3.8-10.6)
[2019-05-28 20:07] LABS: African American GFR (CKD) 69.1 (60.0-200.0); Anion Gap 11.4 mmol/L (4.00-12.00); Carbon Dioxide 31.6 mmol/L (21.6-31.8); Non-African American GFR(CKD) 59.6 (60.0-200.0); Potassium 4.2 mmol/L (3.5-5.5)
== END | disposition home or self-care (01) ==
LOC: LABWHC1 12:26
PROVIDERS: ATTEND Internal Medicine Cardiovascular Disease
DX: Z01.812 Encounter for preprocedural laboratory examination (principal); I35.0 Nonrheumatic aortic (valve) stenosis
CPT/HCPCS: 36415; 80051; 82565; 84520; 85027

== ENCOUNTER 2019-06-04 10:10 | Day surgery (SDC) | payer BC, MEDICARE ==
[2019-05-30 12:46] VITALS: BMI 34.8
[2019-06-04] MEDS ORDERED: ASPIRIN 81 MG ONE (10:33)
[2019-06-04] MEDS ORDERED: fentaNYL (PF) 50 MCG/ML 2 ML AMP ONE (10:43)
[2019-06-04] MEDS ORDERED: BENZOCAINE SPRAY 1 CAN MUCOUS MEM ONE ×2 (10:50→11:25)
[2019-06-04] MEDS ORDERED: IV FLUID CONTINUATION 1,000 ML IV ONE (11:01)
[2019-06-04] MEDS ORDERED: VERAPAMIL 2.5 MG/ML 2 ML AMP ONE (11:06)
[2019-06-04] MEDS ORDERED: LIDOCAINE 1% INJ 10MG/ML (20 ML MDV) ONE (11:06)
[2019-06-04 11:26] LABS: Prothrombin Time 10.7 sec (9.0-12.0)
[2019-06-04] MEDS ORDERED: fentaNYL (PF) 50 MCG/ML 2 ML AMP IVP ONE (11:32)
[2019-06-04] MEDS ORDERED: MIDAZOLAM 2 MG/2 ML VIAL IVP ONE (11:32)
[2019-06-04] MEDS ORDERED: LIDOCAINE 1% INJ 10MG/ML (20 ML MDV) SQ ONE (12:03)
[2019-06-04] MEDS ORDERED: IOPAMIDOL-370 125ML BTL INJ ONE (12:31)
[2019-06-04] MEDS ORDERED: RX INFO: IV CONTRAST WAS GIVEN 1 EACH MISC MISCELLANE PRN (12:38)
[2019-06-04] MEDS ORDERED: SODIUM CHLORIDE 0.9% 1,000 ML IV SCH ×2 (12:45)
[2019-06-04] MEDS ORDERED: ALBUTEROL NEBULIZED 2.5 MG/3 ML INHALATION PRN (19:24)
[2019-06-04] MEDS ORDERED: NITROGLYCERIN SL TABS 0.4 MG TAB SUBLINGUAL PRN (19:24)
[2019-06-04] MEDS ORDERED: WARFARIN 2.5 MG TAB PO SCH (19:30)
[2019-06-04] MEDS ORDERED: WARFARIN 5 MG TAB PO ONE (20:00)
[2019-06-04] MEDS: SYMBICORT 160-4.5 MCG INHALER INHALATION SCH (20:13)
[2019-06-04] MEDS: IPRATROPIUM 0.5 MG/2.5 ML NEBU INHALATION SCH (20:13)
[2019-06-04] MEDS: MAGNESIUM OXIDE 400 MG TAB PO SCH (20:39)
[2019-06-04] MEDS: cycloSPORINE 0.05% OPHTH 0.4 ML DROPERETTE BOTH EYES SCH (20:40)
[2019-06-04] MEDS: POTASSIUM CHLORIDE ER 10 MEQ TAB.ER.PRT PO SCH (20:44)
[2019-06-04] MEDS ORDERED: SPIRONOLACTONE 25 MG TAB PO SCH (21:00)
[2019-06-04] MEDS ORDERED: DOCUSATE 100 MG CAP PO SCH (21:00)
[2019-06-04] MEDS ORDERED: ATORVASTATIN 40 MG TAB PO SCH (21:00)
[2019-06-04] MEDS ORDERED: FLUTICASONE 50MCG/SPRAY NASAL 16GM EA NOSTRIL SCH (21:00)
[2019-06-04] MEDS ORDERED: METOPROLOL SUCCINATE (ER) 25 MG TAB.ER.24H PO SCH (21:00)
[2019-06-04] MEDS ORDERED: CYCLOBENZAPRINE 5 MG TAB PO SCH (21:00)
[2019-06-04] MEDS ORDERED: FUROSEMIDE 80 MG TAB PO SCH (21:00)
[2019-06-04] MEDS ORDERED: NON FORMULARY DRUG (Tiotropium 18 Mcg/Puff 2 PUFF) INHALATION SCH (21:00)
[2019-06-04] MEDS ORDERED: MONTELUKAST 10 MG TAB PO SCH (21:00)
[2019-06-04] MEDS ORDERED: FUROSEMIDE 40 MG TAB PO SCH (22:00)
[2019-06-05 07:24] VITALS: RESP 18
[2019-06-05] MEDS ORDERED: PANTOPRAZOLE 40 MG TABLET PO SCH (07:30)
[2019-06-05] MEDS: SYMBICORT 160-4.5 MCG INHALER INHALATION SCH (07:35)
[2019-06-05] MEDS: IPRATROPIUM 0.5 MG/2.5 ML NEBU INHALATION SCH ×2 (07:35→11:03)
[2019-06-05 07:43] LABS: Prothrombin Time 10.3 sec (9.0-12.0)
[2019-06-05] MEDS: MAGNESIUM OXIDE 400 MG TAB PO SCH (08:07)
[2019-06-05] MEDS: POTASSIUM CHLORIDE ER 10 MEQ TAB.ER.PRT PO SCH (08:07)
[2019-06-05] MEDS: cycloSPORINE 0.05% OPHTH 0.4 ML DROPERETTE BOTH EYES SCH (08:08)
--- NOTE | 2019-06-05 08:18 | P.TEE ---
Indications for Procedure(s): Assessment of aortic stenosis Date of Procedure: 06/05/19 Preoperative Diagnosis: Severe aortic stenosis Postoperative Diagnosis: Severe aortic stenosis Procedure(s) Performed: BRAYDEN Description of Procedure(s): INDICATION: This is a 74-year-old male with history of COPD coronary artery disease and also known aortic stenosis, has been experiencing exertional shortness of breath and chest tightness. Transthoracic echo showed increasing gradient across the aortic valve suggestive of severe aortic stenosis. Patient is advised to have a BRAYDEN examination for further evaluation CONSENT:. Informed verbal consent was obtained from the patient PROCEDURE: Patient was brought to the lab in a fasting state. He was prepped and draped in the usual fashion. He was given IV sedation with 2 mg of Versed and 25 g of fentanyl. The throat was sprayed with the hurricane. A lubricated Omni probe was introduced into the oropharynx and was advanced into the esophagus and also stomach. Multiple views were obtained both from the stomach and esophagus. Color, pulsed and also continuous wave Doppler studies were performed. Saline contrast bubble injection was performed. Patient tolerated the procedure well FINDINGS:. The aortic valve is heavily calcified with restricted opening excursion. By planimetry valve area of point sounds percent mid was obtained. There is only trace aortic regurgitation. The aortic root is dilated and calcified measured about 3.7-3.8 cm in diameter. The mitral valve is thickened and calcified with mild central regurgitation. The left atrium is enlarged. The interatrial septum did not show any spontaneous shunt. Injection of the contrast bubbles showed a traversing of the bubbles late into the left atrium suggestive of possible PFO. Left atrial appendage appeared to be free of any clot. A peak gradient of about 57 with a mean of about 37 was obtained across the aortic valve, again consistent with severe aortic stenosis. The aorta showed moderate to severe diffuse calcified plaque IMPRESSION: #1. Severe aortic stenosis which is calcific. Aortic valve appears to be tricuspid. #2. Dilated aortic root and calcified aortic root #3. Mild mitral regurgitation #4. Possible PFO #5. No clot in the left atrial appendage. #6. Left atrial enlargement. #7. The left ankle function appears to be fair PLAN: Aortic valve replacement, probably with TAVR approach.
--- NOTE | 2019-06-05 08:24 | P.CARDCATH ---
Date of Procedure: 06/04/19 Preoperative Diagnosis: Exertional shortness of breath, severe aortic stenosis and coronary artery disease Postoperative Diagnosis: Severe aortic stenosis, stable coronary artery disease Procedure(s) Performed: Left heart catheterization without left ventriculography Description of Procedure: HISTORY: This is a 74-year-old gentleman with history of coronary artery disease with previous stent placement of the RCA and also severe aortic stenosis who has been experiencing exertional shortness of breath. BRAYDEN examination is consistent with a severe aortic stenosis. Patient is advised to have coronary angiography to rule out concomitant significant coronary artery disease CONSENT:I have discussed the risks, benefits and alternative therapies for the above-mentioned procedure and for both sedation/analgesia as well as necessary blood product administration, if indicated, as they pertain to this patient. The patient has indicated understanding and acceptance of the risks and procedures discussed. PROCEDURE: Patient was brought to the lab in a fasting state. Patient was given some IV sedation. The right groin is infiltrated with lidocaine and right femoral artery was entered using Seldinger technique. There was difficulty advancing 6-Syrian sheath. We are using a 4-Syrian dilator and then 5-Syrian dilator before advancing 5-Syrian sheath into the femoral artery. selective coronary arteriography was performed. Patient tolerated the procedure well. Manual compression was applied for hemostasis. No immediate complications were noted and patient was transferred to [facility] in a stable condition Conscious Sedation: Versed 0mg. Patient has received IV Versed and fentanyl just prior to the procedure, During a BRAYDEN examination Fentanyl 0 g Duration 30 minutes HEMODYNAMICS: The aortic pressure is 140/70. The left ventricle end-diastolic pressure was not obtained SELECTIVE CORONARY ARTERIOGRAPHY: LEFT MAIN: Calcified normal length with mild extensive plaque THE LEFT ANTERIOR DESCENDING CORONARY ARTERY: This is a fair caliber vessel giving rise to good-sized diagonal branch. The LAD and diagonal branch are calcified. There is mild diffuse plaque in the LAD without any significant focal lesions. The diagonal branch has 3 branches. It has about 50% stenosis in the midportion THE LEFT CIRCUMFLEX AND IS CORONARY ARTERY:. This is a good caliber vessel with a diffuse plaque with about 40% lesion in the proximal and midportion THE RIGHT CORONARY ARTERY:. This is a fair caliber ve ssel and patent at the site of previous stent placement. Mild diffuse plaque and calcification noted. Acute marginal branch has about 70% lesion LEFT VENTRICULOGRAPHY: Not performed FINAL IMPRESSION:. Stable coronary artery disease with patent stent in the RCA. PLAN: Continued medical therapy. Proceed with acute coronary placement with TAVR. PROGNOSIS: Guarded
--- NOTE | 2019-06-05 08:53 | P.DS ---
Providers Date of admission: 06/04/2019 Expected date of discharge: 06/05/19 Attending physician: Ajith Nguyễn Consults: 06/05/19 08:43 Consult Physician Routine Consulting Provider: William Sanders Consult Reason/Comments: needs TAVR Do you want consulting provider notified?: Yes Primary care physician: [facility] Clinic - Discharge Diagnosis(es) (1) Severe aortic stenosis Current Visit: Yes Status: Acute (2) COPD (chronic obstructive pulmonary disease) Current Visit: Yes Status: Acute (3) CAD (coronary artery disease) Current Visit: No Status: Acute (4) Peripheral vascular occlusive disease Current Visit: No Status: Acute Hospital Course: Patient was brought in for outpatient BRAYDEN and also cardiac catheterization. BRAYDEN showed evidence of severe aortic stenosis. Cardiac catheterization showed stable coronary artery disease with patent stent in the RCA. Patient tolerated the procedure well. He remained stable overnight. His groin is soft. Pedal pulses are preserved on the right side. Lungs appeared to be clear. Heart shows systolic murmur as before. Patient is tolerating activity. He is being discharged home. A surgical consult was also obtained for evaluation for possible aortic valve replacement. Follow-up in the office in one week Plan - Discharge Summary Discharge Rx Participant: Yes New Discharge Prescriptions: New Nitroglycerin Sl Tabs [Nitrostat] 0.4 mg SUBLINGUAL Q5M PRN tab PRN Reason: Chest Pain Continue Montelukast [Singulair] 10 mg PO HS Tamsulosin [Flomax] 0.4 mg PO QAM Spironolactone 25 mg PO HS cycloSPORINE [Restasis] 1 drop BOTH EYES BID Cholecalciferol [Vitamin D3 (25 Mcg = 1000 Iu)] 2,000 unit PO DAILY Cyanocobalamin (Vitamin B-12) [Vitamin B-12] 2,500 mcg PO DAILY Loratadine [Claritin] 10 mg PO DAILY PRN PRN Reason: Allergy Symptoms Ascorbic Acid [Vitamin C] 1,000 mg PO DAILY Fluticasone Nasal [place] [Flonase Nasal [place]] 2 spr EA NOSTRIL BID Tiotropium 18 Mcg/Puff [Spiriva] 2 puff INHALATION BID Budesonide-Formot 160-4.5 Mcg [Symbicort 160-4.5 Mcg Inhaler] 2 puff INHALATION RT-BID Atorvastatin [Lipitor] 40 mg PO HS Solifenacin Succinate [Vesicare] 5 mg PO QAM Albuterol Nebulized [Ventolin Nebulized] 2.5 mg INHALATION RT-QID PRN PRN Reason: Shortness Of Breath Cyclobenzaprine [Flexeril] 5 mg PO HS Warfarin [Coumadin] 2.5 mg PO WE Docusate [Colace] 200 mg PO DAILY Nitroglycerin Sl Tabs [Nitrostat] 0.4 mg SUBLINGUAL Q5M PRN #25 tab PRN Reason: Chest Pain Potassium 10 meq PO DAILY Furosemide [Lasix] 40 mg PO TID Aspirin EC [Ecotrin Low Dose] 81 mg PO DAILY Warfarin [Coumadin] 5 mg PO SUMOTUTHFRSA Magnesium Oxide [Mag-Ox] 400 mg PO BID #60 tab Omeprazole [PriLOSEC] 40 mg PO DAILY Docusate [Colace] 100 mg PO HS Metoprolol Succinate [Toprol XL] 25 mg PO HS Allopurinol [Zyloprim] 300 mg PO DAILY Discharge Medication List Montelukast [Singulair] 10 mg PO HS 09/09/13 [History] Tamsulosin [Flomax] 0.4 mg PO QAM 09/09/13 [History] Spironolactone 25 mg PO HS 04/03/14 [History] Cholecalciferol [Vitamin D3 (25 Mcg = 1000 Iu)] 2,000 unit PO DAILY 06/09/15 [History] cycloSPORINE [Restasis] 1 drop BOTH EYES BID 06/09/15 [History] Ascorbic Acid [Vitamin C] 1,000 mg PO DAILY 08/07/16 [History] Budesonide-Formot 160-4.5 Mcg [Symbicort 160-4.5 Mcg Inhaler] 2 puff INHALATION RT-BID 08/07/16 [History] Cyanocobalamin (Vitamin B-12) [Vitamin B-12] 2,500 mcg PO DAILY 08/07/16 [History] Fluticasone Nasal [place] [Flonase Nasal [place]] 2 spr EA NOSTRIL BID 08/07/16 [History] Loratadine [Claritin] 10 mg PO DAILY PRN 08/07/16 [History] Tiotropium 18 Mcg/Puff [Spiriva] 2 puff INHALATION BID 08/07/16 [History] Albuterol Nebulized [Ventolin Nebulized] 2.5 mg INHALATION RT-QID PRN 05/02/17 [History] Atorvastatin [Lipitor] 40 mg PO HS 05/02/17 [History] Cyclobenzaprine [Flexeril] 5 mg PO HS 05/02/17 [History] Solifenacin Succinate [Vesicare] 5 mg PO QAM 05/02/17 [History] Docusate [Colace] 200 mg PO DAILY 06/04/17 [History] Warfarin [Coumadin] 2.5 mg PO WE 06/04/17 [History] Nitroglycerin Sl Tabs [Nitrostat] 0.4 mg SUBLINGUAL Q5M PRN #25 tab 06/07/17 [Rx] Furosemide [Lasix] 40 mg PO TID 06/20/17 [History] Potassium 10 meq PO DAILY 06/20/17 [History] Aspirin EC [Ecotrin Low Dose] 81 mg PO DAILY 09/12/17 [History] Warfarin [Coumadin] 5 mg PO SUMOTUTHFRSA 09/12/17 [History] Magnesium Oxide [Mag-Ox] 400 mg PO BID #60 tab 09/22/17 [Rx] Allopurinol [Zyloprim] 300 mg PO DAILY 05/30/19 [History] Docusate [Colace] 100 mg PO HS 05/30/19 [History] Metoprolol Succinate [Toprol XL] 25 mg PO HS 05/30/19 [History] Omeprazole [PriLOSEC] 40 mg PO DAILY 05/30/19 [History] Nitroglycerin Sl Tabs [Nitrostat] 0.4 mg SUBLINGUAL Q5M PRN tab 06/04/19 [Rx] Follow up Appointment(s)/Referral(s): Ajith Nguyễn MD [STAFF PHYSICIAN] - 1 Week Patient Instructions/Handouts: Left Heart Catheterization (DC), Transesophageal Echocardiogram (DC) Discharge Disposition: HOME SELF-CARE
[2019-06-05] MEDS ORDERED: TAMSULOSIN 0.4 MG CAP.ER.24H PO SCH (09:00)
[2019-06-05] MEDS ORDERED: DOCUSATE 100 MG CAP PO SCH (09:00)
[2019-06-05] MEDS ORDERED: TROSPIUM CHLORIDE 20 MG TABLET PO SCH (09:00)
[2019-06-05] MEDS ORDERED: FUROSEMIDE 40 MG TAB PO SCH (09:00)
[2019-06-05] MEDS ORDERED: CYANOCOBALAMIN 500 MCG TAB PO SCH (09:00)
[2019-06-05] MEDS ORDERED: LORATADINE 10 MG TAB PO PRN (09:00)
[2019-06-05] MEDS ORDERED: ALLOPURINOL 300 MG TAB PO SCH (09:00)
[2019-06-05] MEDS ORDERED: CHOLECALCIFEROL 1,000 UNIT TAB PO SCH (09:00)
[2019-06-05] MEDS ORDERED: ASCORBIC ACID 500 MG TAB PO SCH (09:00)
[2019-06-05] MEDS ORDERED: FLUTICASONE 50MCG/SPRAY NASAL 16GM EA NOSTRIL SCH (09:00)
[2019-06-05] MEDS ORDERED: POTASSIUM CHLORIDE ER 10 MEQ TAB.ER.PRT PO SCH (09:00)
[2019-06-05] MEDS ORDERED: ASPIRIN 81 MG PO SCH (09:00)
[2019-06-05 11:23] VITALS: BP 149/91; PULSE 79; TEMP 98.2
--- NOTE | 2019-06-05 12:31 | P.GSCN ---
<Dante Viera - Last Filed: 06/05/19 12:25> History of Present Illness Consult date: 06/05/19 Reason for Consult: Evaluation for transcatheter aortic valve replacement Requesting physician: Ajith Nguyễn History of present illness: This is 74-year-old gentleman who is followed by the physician sales and marketing assistant L[facility] [place]. His past medical history significant for cardiomyopathy, congestive heart failure diastolic dysfunction NYHA class II, paroxysmal atrial fibrillation with previous ablation on Coumadin for anticoagulation at home, hypertension, hyperlipidemia, coronary artery disease with previous stent placement to his right coronary artery in May 2017, COPD, recent pneumonia, peripheral vascular disease with history of aortobifemoral bypass surgery and right carotid endarterectomy, prostate cancer, sleep apnea with home cpap use, remote history of nicotine dependence with smoking in 1991, EtOH abuse with 14+ beers per week and obesity. He has a known history of aortic valve stenosis which has been followed by Dr. Nguyễn on an outpatient basis. Recently, the patient has had increased shortness of breath, chest tightness and complaints of feeling lack of energy. A transthora cic echocardiogram was completed in Dr. Nguyễn's office which showed evidence of severe aortic valve stenosis with increased gradient. He denies any recent complaints of fever, chills, palpitations, nausea, vomiting, presyncope or syncope. Subsequently due to the patient's symptoms, history of coronary artery disease and findings on his 2-D echocardiogram he underwent an elective transesophageal echocardiogram and cardiac catheterization performed yesterday to 2019. The transesophageal echocardiogram showed his aortic valve to be heavily calcified with restricted ongoing excursion, trace aortic valve regurgitation, aortic root was dilated and calcified measuring about 3.7-3.8 cm in diameter, mild mitral valve central regurgitation, possible PFO, left atrial appendage appeared to be free from any clot, a peak gradient of 57 mmHg across the aortic valve with a mean gradient of 37 mmHg consistent with severe aortic valve stenosis. The heart catheterization results demonstrated mild extensive plaque to the left main coronary artery, calcified left anterior descending and diagonal coronary arteries with a 50% stenosis to the midportion of the diagonal coronary artery, the circumflex coronary artery showed diffuse plaque with a 40% lesion in the proximal and midportion and the right coronary artery stent to be patent and a 70% stenosis to his acute marginal branch. Subsequently, do to the findings on the transesophageal echocardiogram results a consult was placed to Dr. William Sanders from cardiothoracic surgery for further treatment recommendations and evaluation for possible transcatheter aortic valve replacement. Review of Systems A 14 point review of systems was completed was negative except as mentioned in the HPI. Past Medical History Past Medical History: Atrial Fibrillation (On Coumadin for anticoagulation at home), Asthma, Coronary Artery Disease (CAD) (Stent placement to his right co ronary artery in 2018, patent on the most recent heart catheterization done on 06/04/2019), Cancer, COPD, Diabetes Mellitus (Diet-controlled), GERD/Reflux, Hearing Disorder / Deafness, Hyperlipidemia, Hypertension, Osteoarthritis (OA), Pneumonia, Prostate Disorder, Sleep Apnea/CPAP/BIPAP (Without home CPAP use), Vascular Disorder Additional Past Medical History / Comment(s): Prostate cancer. see Dr Nguyễn H&P FOR CARDIAC HISTORY , O2 2L PRN AND AT BEDTIME , hiatal hernia, kidney stones, "bad back", past a fib cardiomyopathy aortic stenosis, PRE- DIABETIC -DIET CONTROLLED, unknown valve disorder in heart History of Any Multi-Drug Resistant Organisms: None Reported Past Surgical History: Ablation (For atrial fibrillation), Bladder Surgery, Cholecystectomy, Heart Catheterization With Stent, Hernia Repair, Tonsillectomy Additional Past Surgical History / Comment(s): CARDIOVERSION, MUKESH FEMORAL BYPASS SURGERY, MUKESH.inguinal hernia, UMBILICAL HERNIA REPAIR, surgery for PILONIDAL CYST, mukesh CATARACTS, ARCH/AORTOGRAM, cystoscopy for KIDNEY STONE REMOVAL x 3, LT CAROTID ENDARTECTOMY. BRAYDEN 05/10/17, 06/06, 06/04/19, 2 stents to the RCA Past Anesthesia/Blood Transfusion Reactions: No Reported Reaction Date of Last Stent Placement:: 06/06/18 Past Psychological History: No Psychological Hx Reported Smoking Status: Former smoker Past Alcohol Use History: Daily Additional Past Alcohol Use History / Comment(s): QUIT SMOKING 1991, SMOKED SINCE AGE 17(2). SMOKED 1-3 PPD DRINKS 1-2 BEER A DAY Past Drug Use History: None Reported - Past Family History Father Family Medical History: Liver Disease Mother Family Medical History: No Reported History Additional Family Medical History / Comment(s): . Medications and Allergies Home Medications Medication Instructions Recorded Confirmed Type Montelukast [Singulair] 10 mg PO HS 09/09/13 06/04/19 History Tamsulosin [Flomax] 0.4 mg PO QAM 09/09/13 06/04/19 History Spironolactone 25 mg PO HS 04/03/14 06/04/19 History Cholecalciferol [Vitamin D3 (25 2,000 unit PO DAILY 06/09/15 06/04/19 History Mcg = 1000 Iu)] cycloSPORINE [Restasis] 1 drop BOTH EYES BID 06/09/15 06/04/19 History Ascorbic Acid [Vitamin C] 1,000 mg PO DAILY 08/07/16 06/04/19 History Budesonide-Formot 160-4.5 Mcg 2 puff INHALATION RT-BID 08/07/16 06/04/19 History [Symbicort 160-4.5 Mcg Inhaler] Cyanocobalamin (Vitamin B-12) 2,500 mcg PO DAILY 08/07/16 06/04/19 History [Vitamin B-12] Fluticasone Nasal [place] [Flonase 2 spr EA NOSTRIL BID 08/07/16 06/04/19 History Nasal [place]] Loratadine [Claritin] 10 mg PO DAILY PRN 08/07/16 06/04/19 History Tiotropium 18 Mcg/Puff [Spiriva] 2 puff INHALATION BID 08/07/16 06/04/19 History Albuterol Nebulized [Ventolin 2.5 mg INHALATION RT-QID PRN 05/02/17 06/04/19 History Nebulized] Atorvastatin [Lipitor] 40 mg PO HS 05/02/17 06/04/19 History Cyclobenzaprine [Flexeril] 5 mg PO HS 05/02/17 06/04/19 History Solifenacin Succinate [Vesicare] 5 mg PO QAM 05/02/17 06/04/19 History Docusate [Colace] 200 mg PO DAILY 06/04/17 06/04/19 History Warfarin [Coumadin] 2.5 mg PO WE 06/04/17 06/04/19 History Nitroglycerin Sl Tabs [Nitrostat] 0.4 mg SUBLINGUAL Q5M PRN #25 tab 06/07/17 06/04/19 Rx Furosemide [Lasix] 40 mg PO TID 06/20/17 06/04/19 History Potassium 10 meq PO DAILY 06/20/17 06/04/19 History Aspirin EC [Ecotrin Low Dose] 81 mg PO DAILY 09/12/17 06/04/19 History Warfarin [Coumadin] 5 mg PO SUMOTUTHFRSA 09/12/17 06/04/19 History Magnesium Oxide [Mag-Ox] 400 mg PO BID #60 tab 09/22/17 06/04/19 Rx Allopurinol [Zyloprim] 300 mg PO DAILY 05/30/19 06/04/19 History Docusate [Colace] 100 mg PO HS 05/30/19 06/04/19 History Metoprolol Succinate [Toprol XL] 25 mg PO HS 05/30/19 06/04/19 History Omeprazole [PriLOSEC] 40 mg PO DAILY 05/30/19 06/04/19 History Nitroglycerin Sl Tabs [Nitrostat] 0.4 mg SUBLINGUAL Q5M PRN tab 06/04/19 Rx Allergies Allergy/AdvReac Type Severity Reaction Status Date / Time [id number] Reductase Allergy Mild Rash/Hives Verified 06/04/19 10:26 Inhibitor Surgical - Exam Vital Signs Temp Pulse Resp BP Pulse Ox 97.9 F 77 18 147/80 96 06/04/19 10:31 06/04/19 10:31 06/04/19 10:31 06/04/19 10:31 06/04/19 10:31 - General well developed, well nourished, no distress, no pain, obese - Eyes PERRL, normal ocular movement - ENT normal pinna, normal nares, normal mucosa, no congestion, decreased hearing - Neck Neck is supple, no lymphadenopathy. no masses, no bruits, trachea midline, no venous distension - Respiratory Lungs sounds essentially clear throughout, few scattered crackles to his bilateral bases. Respirations are symmetrical and nonlabored. - Cardiovascular Regular rhythm and rate. S1 and S2 present, negative for S3, gallop. Positive systolic ejection murmur IV/ heard best at the base. - Abdomen Abdomen is soft, nontender and nondistended. Active bowel sounds present in all 4 abdominal quadrants. No guarding or rigidity. No organomegaly appreciated. - Genitourinary Deferred - Rectum Deferred - Integumentary no rash, no growths, no abnormal pigmentation - Neurologic normal coordination, normal sensation - Musculoskeletal normal gait, normal posture - Psychiatric oriented to time, oriented to person, oriented to place, speech is normal, memory intact Assessment and Plan Assessment: 1. Severe aortic valve stenosis 2. History of coronary artery disease status post stent placement to his right coronary artery in 2018 3. Paroxysmal atrial fibrillation status post ablation and is on Coumadin at home for anticoagulation 4. Hypertension 5. Hyperlipidemia 6. Cardiomyopathy/congestive heart failure diastolic dysfunction NYHA class II 7. COPD 8. Recent pneumonia 9. Peripheral vascular disease with history of aortobifem bypass and right carotid endarterectomy 10. Prostate cancer 11. Sleep apnea without home CPAP use 12. Remote history of tobacco dependence quit smoking in 1991 13. EtOH abuse, 14+ beers per week 14. Obesity with a BMI of 34.6 kg/m 15. Chronic low back pain Plan: The patient was seen and examined as bedside in the observation unit. Discharge diagnostics were reviewed. He was seen and evaluated by Dr. William Sanders from cardiothoracic surgery. The cardiac catheterization and transesophageal echoca rdiogram results were reviewed with the patient by Dr. William Sanedrs. Treatment options were discussed with the patient for his severe aortic valve stenosis including transcatheter aortic valve replacement. The patient wishes to proceed with workup for a transcatheter aortic valve replacement to be completed at [facility]. The results from the carotid duplex study, heart catheterization and transesophageal echocardiogram will be sent to Raj Herrera the coordinator for TAVR at [facility]. Preoperative testing and preoperative teaching will be completed at [facility]. Thank you Dr. Nguyễn for this consult and we will look forward to working with you in the care of this patient. Time with Patient: Greater than 30 <William Sanders R - Last Filed: 06/06/19 11:41> Surgical - Exam Vital Signs Temp Pulse Resp BP Pulse Ox 97.9 F 77 18 147/80 96 06/04/19 10:31 06/04/19 10:31 06/04/19 10:31 06/04/19 10:31 06/04/19 10:31 Assessment and Plan Assessment: Patient seen and examined. Cath films and echo reviewed. Appropriate candidate for evaluation for TAVR for severe . [facility] refer for TAVR evaluation. Patient requests referral to [place].
[2019-06-05] MEDS ORDERED: WARFARIN 7.5 MG TAB PO ONE (18:00)
[2019-06-05] MEDS ORDERED: WARFARIN 2.5 MG TAB PO SCH (19:24)
== END 2019-06-05 12:54 | disposition home or self-care (01) ==
LOC: CATHCVL 10:10 → 1SOBS 15:21 → CATHCVL 06-05 12:54
PROVIDERS: ATTEND Internal Medicine Cardiovascular Disease
DX: I08.0 Rheumatic disorders of both mitral and aortic valves (principal); I11.0 Hypertensive heart disease with heart failure; I50.32 Chronic diastolic (congestive) heart failure; Z95.5 Presence of coronary angioplasty implant and graft; E11.51 Type 2 diabetes mellitus with diabetic peripheral angiopathy without gangrene; I48.20 Chronic atrial fibrillation, unspecified; Z79.01 Long term (current) use of anticoagulants; E78.5 Hyperlipidemia, unspecified; E78.00 Pure hypercholesterolemia, unspecified; I25.10 Atherosclerotic heart disease of native coronary artery without angina pectoris; F10.10 Alcohol abuse, uncomplicated; Z87.891 Personal history of nicotine dependence; G89.29 Other chronic pain; M54.5 Low back pain; K21.9 Gastro-esophageal reflux disease without esophagitis; G47.30 Sleep apnea, unspecified; J44.9 Chronic obstructive pulmonary disease, unspecified; M19.90 Unspecified osteoarthritis, unspecified site; H91.90 Unspecified hearing loss, unspecified ear; E66.9 Obesity, unspecified; Z68.34 Body mass index [BMI] 34.0-34.9, adult; Z90.49 Acquired absence of other specified parts of digestive tract; Z87.01 Personal history of pneumonia (recurrent); Z87.442 Personal history of urinary calculi; Z85.46 Personal history of malignant neoplasm of prostate; Z79.82 Long term (current) use of aspirin; Z79.51 Long term (current) use of inhaled steroids; Z79.899 Other long term (current) drug therapy; Z88.8 Allergy status to other drugs, medicaments and biological substances
CPT/HCPCS: 94640 ×3; 93312; 93320; 93325; 93454; 85610 ×2; C1769 ×4; C1894 ×2; J2250; J2001; J3010; Q9967

== ENCOUNTER 2019-10-03 16:40 | Inpatient (IN) | payer MEDICARE ==
[2019-10-03] MEDS ORDERED: DILTIAZEM DRIP BOLUS FROM BAG 1 MG SOLN IV ONE ×2 (16:55→20:29)
--- NOTE | 2019-10-03 16:58 | ED ---
General Adult HPI - General Chief complaint: Arrhythmia/Palpitations Stated complaint: High Heart Rate Time Seen by Provider: 10/03/19 16:48 Source: patient, RN/MD (Case was discussed with Dr. Nguyễn), RN notes reviewed Mode of arrival: ambulatory Limitations: no limitations - History of Present Illness Initial comments: Patient is a pleasant 74-year-old male presenting to the emergency Department with arrhythmia. Patient had follow-up with Dr. Nguyễn today and was advised come the emergency department secondary to concern for atrial flutter with a rate of 150. Case was discussed with Dr. Nguyễn who did feel patient would need to be admitted with Bryan cao. Patient also had aortic stenosis with prosthetic valve 1 month ago. Patient is currently on Coumadin. Patient has had exertional dyspnea and fatigue. No chest pain no palpitations - Related Data Home Medications Medication Instructions Recorded Confirmed Montelukast [Singulair] 10 mg PO HS 09/09/13 06/04/19 Tamsulosin [Flomax] 0.4 mg PO QAM 09/09/13 06/04/19 Spironolactone 25 mg PO HS 04/03/14 06/04/19 Cholecalciferol [Vitamin D3 (25 2,000 unit PO DAILY 06/09/15 06/04/19 Mcg = 1000 Iu)] cycloSPORINE [Restasis] 1 drop BOTH EYES BID 06/09/15 06/04/19 Ascorbic Acid [Vitamin C] 1,000 mg PO DAILY 08/07/16 06/04/19 Budesonide-Formot 160-4.5 Mcg 2 puff INHALATION RT-BID 08/07/16 06/04/19 [Symbicort 160-4.5 Mcg Inhaler] Cyanocobalamin (Vitamin B-12) 2,500 mcg PO DAILY 08/07/16 06/04/19 [Vitamin B-12] Fluticasone Nasal [place] [Flonase 2 spr EA NOSTRIL BID 08/07/16 06/04/19 Nasal [place]] Loratadine [Claritin] 10 mg PO DAILY PRN 08/07/16 06/04/19 Tiotropium 18 Mcg/Puff [Spiriva] 2 puff INHALATION BID 08/07/16 06/04/19 Albuterol Nebulized [Ventolin 2.5 mg INHALATION RT-QID PRN 05/02/17 06/04/19 Nebulized] Atorvastatin [Lipitor] 40 mg PO HS 05/02/17 06/04/19 Cyclobenzaprine [Flexeril] 5 mg PO HS 05/02/17 06/04/19 Solifenacin Succinate [Vesicare] 5 mg PO QAM 05/02/17 06/04/19 Docusate [Colace] 200 mg PO DAILY 06/04/17 06/04/19 Warfarin [Coumadin] 2.5 mg PO WE 06/04/17 06/04/19 Furosemide [Lasix] 40 mg PO TID 06/20/17 06/04/19 Potassium 10 meq PO DAILY 06/20/17 06/04/19 Aspirin EC [Ecotrin Low Dose] 81 mg PO DAILY 09/12/17 06/04/19 Warfarin [Coumadin] 5 mg PO SUMOTUTHFRSA 09/12/17 06/04/19 Allopurinol [Zyloprim] 300 mg PO DAILY 05/30/19 06/04/19 Docusate [Colace] 100 mg PO HS 05/30/19 06/04/19 Metoprolol Succinate [Toprol XL] 25 mg PO HS 05/30/19 06/04/19 Omeprazole [PriLOSEC] 40 mg PO DAILY 05/30/19 06/04/19 Previous Rx's Medication Instructions Recorded Nitroglycerin Sl Tabs [Nitrostat] 0.4 mg SUBLINGUAL Q5M PRN #25 tab 06/07/17 Magnesium Oxide [Mag-Ox] 400 mg PO BID #60 tab 09/22/17 Nitroglycerin Sl Tabs [Nitrostat] 0.4 mg SUBLINGUAL Q5M PRN tab 06/04/19 Allergies Allergy/AdvReac Type Severity Reaction Status Date / Time [id number] Reductase Allergy Mild Rash/Hives Verified 10/03/19 16:47 Inhibitor Review of Systems ROS Statement: Those systems with pertinent positive or pertinent negative responses have been documented in the HPI. ROS Other: All systems not noted in ROS Statement are negative. Constitutional: Denies: fever Eyes: Denies: eye pain ENT: Denies: ear pain Respiratory: Reports: dyspnea (With exertion) Cardiovascular: Denies: chest pain, palpitations Endocrine: Reports: fatigue Gastrointestinal: Denies: abdominal pain Genitourinary: Denies: dysuria Musculoskeletal: Denies: back pain Skin: Denies: rash Neurological: Denies: weakness Past Medical History Past Medical History: Atrial Fibrillation, Asthma, Coronary Artery Disease (CAD), Cancer, COPD, Diabetes Mellitus, GERD/Reflux, Hearing Disorder / Deafness, Hyperlipidemia, Hypertension, Osteoarthritis (OA), Pneumonia, Prostate Disorder, Sleep Apnea/CPAP/BIPAP, Vascular Disorder Additional Past Medical History / Comment(s): Prostate cancer. see Dr Nguyễn H&P FOR CARDIAC HISTORY , O2 2L PRN AND AT BEDTIME , hiatal hernia, kidney stones, "bad back", past a fib cardiomyopathy aortic stenosis, PRE- DIABETIC -DIET CONTROLLED, unknown valve disorder in heart History of Any Multi-Drug Resistant Organisms: None Reported Past Surgical History: Ablation, Bladder Surgery, Cholecystectomy, Heart Catheterization With Stent, Hernia Repair, Tonsillectomy Additional Past Surgical History / Comment(s): CARDIOVERSION, MUKESH FEMORAL BYPASS SURGERY, MUKESH.inguinal hernia, UMBILICAL HERNIA REPAIR, surgery for PILONIDAL CYST, mukesh CATARACTS, ARCH/AORTOGRAM, cystoscopy for KIDNEY STONE REMOVAL x 3, LT CAROTID ENDARTECTOMY. BRAYDEN 05/10/17, 06/06, 06/04/19, 2 stents to the RCA Past Anesthesia/Blood Transfusion Reactions: No Reported Reaction Date of Last Stent Placement:: 06/06/18 Past Psychological History: No Psychological Hx Reported Smoking Status: Former smoker Past Alcohol Use History: Daily Past Drug Use History: None Reported - Past Family History Father Family Medical History: Liver Disease Mother Family Medical History: No Reported History Additional Family Medical History / Comment(s): . General Exam Limitations: no limitations General appearance: alert, in no apparent distress Head exam: Present: normocephalic Eye exam: Present: normal appearance, PERRL ENT exam: Present: normal oropharynx Neck exam: Present: normal inspection Respiratory exam: Present: normal lung sounds bilaterally Cardiovascular Exam: Present: tachycardia, irregular rhythm GI/Abdominal exam: Present: soft. Absent: tenderness Extremities exam: Present: pedal edema (+1 bilateral, patient states chronic). Absent: calf tenderness Neurological exam: Present: alert Psychiatric exam: Present: normal affect, normal mood Skin exam: Present: normal color Course Vital Signs 10/03/19 10/03/19 10/03/19 16:44 17:10 17:41 Temperature 98.8 F Pulse Rate 150 H 149 H 147 H Respiratory 20 18 16 Rate Blood Pressure 137/90 123/91 121/89 O2 Sat by Pulse 93 L 98 99 Oximetry EKG Findings - EKG Comments: EKG Findings:: Neuro complex tachycardia with suspicion for underlying atrial flutter rate 150. NE 122. QRS 106. QT 278. QTC 439. Normal axis. Low QRS voltage. Nonspecific ST-T. Medical Decision Making - Medical Decision Making Patient reevaluated without much change in heart rate. Cardizem drip increased. Patient updated on results and plan. Case discussed with Dr. Carrero, who will admit for this va Patient. - Lab Data Result diagrams: 10/03/19 17:02 10/03/19 17:04 Lab Results 10/03/19 10/03/19 10/03/19 Range/Units 17:02 17:04 17:04 WBC 7.3 (3.8-10.6) k/uL RBC 3.92 L (4.30-5.90) m/uL Hgb 13.1 (13.0-17.5) gm/dL Hct 40.0 (39.0-53.0) % MCV 102.0 H (80.0-100.0) fL MCH 33.4 (25.0-35.0) pg MCHC 32.8 (31.0-37.0) g/dL RDW 14.9 (11.5-15.5) % Plt Count 206 (150-450) k/uL Neutrophils % 70 % Lymphocytes % 20 % Monocytes % 7 % Eosinophils % 2 % Basophils % 0 % Neutrophils # 5.1 (1.3-7.7) k/uL Lymphocytes # 1.4 (1.0-4.8) k/uL Monocytes # 0.5 (0-1.0) k/uL Eosinophils # 0.2 (0-0.7) k/uL Basophils # 0.0 (0-0.2) k/uL Macrocytosis Slight PT 31.5 H (9.0-12.0) sec INR 3.2 H (<1.2) APTT 35.1 H (22.0-30.0) sec Sodium 138 (137-145) mmol/L Potassium 3.9 (3.5-5.1) mmol/L Chloride 99 (98-107) mmol/L Carbon Dioxide 31 H (22-30) mmol/L Anion Gap 8 mmol/L BUN 21 H (9-20) mg/dL Creatinine 0.78 (0.66-1.25) mg/dL Est GFR (CKD-EPI)AfAm >90 (>60 ml/min/1.73 sqM) Est GFR (CKD-EPI)NonAf 90 (>60 ml/min/1.73 sqM) Glucose 121 H (74-99) mg/dL Calcium 9.0 (8.4-10.2) mg/dL Magnesium 1.9 (1.6-2.3) mg/dL Total Bilirubin 0.6 (0.2-1.3) mg/dL AST 27 (17-59) U/L ALT 20 (4-49) U/L Alkaline Phosphatase 107 (38-126) U/L Troponin I (0.000-0.034) ng/mL Total Protein 6.8 (6.3-8.2) g/dL Albumin 3.9 (3.5-5.0) g/dL TSH 1.990 (0.465-4.680) mIU/L Free T4 1.37 (0.78-2.19) ng/dL Free T3 pg/mL 3.8 (2.8-5.3) pg/ml 10/03/19 Range/Units 17:04 WBC (3.8-10.6) k/uL RBC (4.30-5.90) m/uL Hgb (13.0-17.5) gm/dL Hct (39.0-53.0) % MCV (80.0-100.0) fL MCH (25.0-35.0) pg MCHC (31.0-37.0) g/dL RDW (11.5-15.5) % Plt Count (150-450) k/uL Neutrophils % % Lymphocytes % % Monocytes % % Eosinophils % % Basophils % % Neutrophils # (1.3-7.7) k/uL Lymphocytes # (1.0-4.8) k/uL Monocytes # (0-1.0) k/uL Eosinophils # (0-0.7) k/uL Basophils # (0-0.2) k/uL Macrocytosis PT (9.0-12.0) sec INR (<1.2) APTT (22.0-30.0) sec Sodium (137-145) mmol/L Potassium (3.5-5.1) mmol/L Chloride (98-107) mmol/L Carbon Dioxide (22-30) mmol/L Anion Gap mmol/L BUN (9-20) mg/dL Creatinine (0.66-1.25) mg/dL Est GFR (CKD-EPI)AfAm (>60 ml/min/1.73 sqM) Est GFR (CKD-EPI)NonAf (>60 ml/min/1.73 sqM) Glucose (74-99) mg/dL Calcium (8.4-10.2) mg/dL Magnesium (1.6-2.3) mg/dL Total Bilirubin (0.2-1.3) mg/dL AST (17-59) U/L ALT (4-49) U/L Alkaline Phosphatase (38-126) U/L Troponin I <0.012 (0.000-0.034) ng/mL Total Protein (6.3-8.2) g/dL Albumin (3.5-5.0) g/dL TSH (0.465-4.680) mIU/L Free T4 (0.78-2.19) ng/dL Free T3 pg/mL (2.8-5.3) pg/ml - Radiology Data Radiology results: image reviewed (Chest x-ray shows fibrosis. I'll hernia. Interstitial pulmonary edema and increase compared to previous.) Critical Care Time Critical Care Time: Yes Total Critical Care Time: 32 Disposition Clinical Impression: Atrial flutter with rapid ventricular response Disposition: ADMITTED IP TO THIS HOSP Is patient prescribed a controlled substance at d/c from ED?: No Referrals: [facility] [Primary Care Provider] - 1-2 days Decision Time: 18:36
[2019-10-03 17:16] LABS: Basophils % (A) 0 %; Eosinophils # (A) 0.2 k/uL (0-0.7); Eosinophils % (A) 2 %; HGB 13.1 gm/dL (13.0-17.5); Lymphocytes # (A) 1.4 k/uL (1.0-4.8); Lymphocytes % (A) 20 %; MCH 33.4 pg (25.0-35.0); MCHC 32.8 g/dL (31.0-37.0); Macrocytosis Slight; Mean Platelet Volume 7.8; Monocytes # (A) 0.5 k/uL (0-1.0); Monocytes % (A) 7 %; Neutrophils # (A) 5.1 k/uL (1.3-7.7); Neutrophils % (A) 70 %; Platelet Count 206 k/uL (150-450); RBC 3.92 m/uL (4.30-5.90); RDW 14.9 % (11.5-15.5); WBC 7.3 k/uL (3.8-10.6)
[2019-10-03 17:24] LABS: INR 3.2 (<1.2); Partial Thromboplastin Time 35.1 sec (22.0-30.0); Prothrombin Time 31.5 sec (9.0-12.0)
[2019-10-03 17:26] LABS: ALT 20 U/L (4-49); AST 27 U/L (17-59); African American GFR (CKD) >90 (>60 ml/min/1.73 sqM); Albumin 3.9 g/dL (3.5-5.0); Alkaline Phosphatase 107 U/L (38-126); Anion Gap 8 mmol/L; Blood Urea Nitrogen 21 mg/dL (9-20); Carbon Dioxide 31 mmol/L (22-30); Chloride 99 mmol/L (98-107); Glucose 121 mg/dL (74-99); Magnesium 1.9 mg/dL (1.6-2.3); Non-African American GFR(CKD) 90 (>60 ml/min/1.73 sqM); Potassium 3.9 mmol/L (3.5-5.1); Sodium 138 mmol/L (137-145); Total Bilirubin 0.6 mg/dL (0.2-1.3); Total Protein 6.8 g/dL (6.3-8.2)
[2019-10-03] MEDS: DILTIAZEM 125 MG in SODIUM CHLORIDE 0.9% 100 ML IV SCH (17:41)
[2019-10-03 17:43] LABS: T4, Free (Free Thyroxine) 1.37 ng/dL (0.78-2.19)
--- NOTE | 2019-10-03 17:43 | XR ---
EXAMINATION TYPE: XR chest 1V portable DATE OF EXAM: 10/03/2019 COMPARISON: 05/26/2019 HISTORY: Dysrhythmia TECHNIQUE: FINDINGS: There is some coarsening of interstitial markings. Heart is enlarged. There is large hiatal hernia. There is no definite pleural effusion. IMPRESSION: Mild pulmonary fibrosis. Large hiatal hernia. No heart failure seen. Interstitial pulmona ry density increased compared to old exam.
[2019-10-03] MEDS ORDERED: NALOXONE 0.4 MG/ML 1 ML VIAL IV PRN (18:54)
--- NOTE | 2019-10-03 20:25 | HP ---
HISTORY AND PHYSICAL CHIEF COMPLAINT: Palpitations. HISTORY OF PRESENT ILLNESS: This 74-year-old gentleman with a past medical history of atrial fibrillation, history of asthma, CAD, history of COPD, diabetes mellitus, GERD, history of DJD, history pneumonia, being followed by Lanie Patel in the [facility], was recently evaluated by Dr. Nguyễn with cardiac catheterization. Subsequently the patient underwent TAVR for severe aortic stenosis by Dr. Sanders in [facility]. Currently the patient is not feeling well, tired, weak and some palpitations. The patient was evaluated in Dr. Nguyễn's and was found to have atrial flutter with a heart rate of 150. The patient was initiated on Cardizem drip 5 mg IV was also given. The patient is being closely monitored at this time. There is no history of any fever, rigor or chills. No history of headache, loss of consciousness, seizures at this time. PAST MEDICAL HISTORY: Atrial fibrillation, history of asthma, CAD, COPD, diabetes mellitus, GERD, hearing defect, hypertension, hyperlipidemia. HOME MEDICATIONS: Reviewed. They include: 1. Cyclosporine. 2. Coumadin 5 mg Sunday, Sunday, Sunday, , Sunday, Sunday and 2.5 mg Sunday. 3. Spiriva 2 puffs daily. 4. Flomax 0.4. 5. Aldactone 25 mg at bedtime. 6. VESIcare 5 mg each morning. 7. Potassium 10 mg p.o. daily. 8. Prilosec 40 mg p.o. daily. 9. Nitrostat 0.4 sublingually p.r.n. 10.Singulair 10 mg at bedtime. 11.Toprol-XL 25 mg at bedtime. 12.Magnesium oxide 400 mg p.o. b.i.d. 13.Claritin 10 mg daily p.r.n. 14.Lasix 40 mg p.o. t.i.d. 15.Flonase 2 sprays b.i.d. 16.Colace 100 mg at bedtime and 200 mg daily. 17.Flexeril 5 mg at bedtime. 18.Vitamin B12 2.5 mg p.o. daily. 19.Vitamin D3 2000 units daily. 20.Symbicort 160/4.5 two puffs b.i.d. 21.Lipitor 40 mg at bedtime. 22.Ecotrin 81 mg p.o. daily. 23.Vitamin C 1000 mg p.o. daily. 24.Zyloprim 300 mg daily. 25.Ventolin 2.5 q.i.d. p.r.n. ALLERGIES: STATINS. FAMILY HISTORY: No history of heart disease or strokes in the family. SOCIAL HISTORY: Previous history of smoking. Daily alcohol. REVIEW OF SYSTEMS: ENT: Diminished hearing. Diminished vision. CARDIOVASCULAR SYSTEM: As mentioned earlier. RESPIRATORY SYSTEM: As mentioned earlier. GI: No nausea, vomiting. : No dysuria or retention. NERVOUS SYSTEM: No numbness, weakness. ALLERGY/IMMUNOLOGY: No asthma, hayfever. MUSCULOSKELETAL: As mentioned earlier. HEMATOLOGY/ONCOLOGY: No history of anemia. ENDOCRINE: As mentioned earlier. CONSTITUTIONAL: As mentioned earlier. DERMATOLOGY: Negative. RHEUMATOLOGY: Negative. PSYCHIATRY: As mentioned earlier. PHYSICAL EXAMINATION: Patient is alert, oriented x3. Pulse is 150, irregular. Blood pressure is 137/90, respiration 20, temperature 98.8, pulse ox 93% on 2 L. HEENT: Conjunctivae normal. NECK: No jugular venous distention. CARDIOVASCULAR SYSTEM: S1, S2 muffled. RESPIRATORY SYSTEM: Breath sounds diminished at the bases. A few scattered rhonchi and crackles. ABDOMEN: Soft, non-tender. No mass palpable. LEGS: No edema. No swelling. NERVOUS SYSTEM: Higher functions as mentioned earlier. Moves all 4 limbs. No focal motor or sensory deficit. LYMPHATICS: No lymph node palpable in neck, axillae or groin. SKIN: No ulcer, rash, bleeding. JOINTS: No active deforming arthropathy. LABS: WBC 7.3, hemoglobin 13.1. INR 3.2. Sodium 138, potassium 3.9. EKG shows possible atrial flutter with 2:1 AV block and tachycardia. ASSESSMENT: 1. Atrial flutter with a fast ventricular rate. 2. History of recent transcatheter aortic valve replacement for severe aortic stenosis. 3. History of atrial fibrillation. 4. Asthma. 5. History of coronary artery disease. 6. Chronic obstructive pulmonary disease. 7. Diabetes mellitus, type 2. 8. Gastroesophageal reflux disease. 9. Hard of hearing. 10.Hypertension. 11.Hyperlipidemia. 12.History of degenerative joint disease. 13.History of pneumonia. 14.History of sleep apnea. 15.History of prostate cancer. 16.History of chronic hypoxic respiratory failure. 17.Hiatal hernia. 18.History of nephrolithiasis. 19.History of cardiomyopathy in the past. 20.History of cardiac ablation. 21.History of coronary artery disease/stent. 22.History of cardioversion. 23.History of bilateral femoral bypass surgery. 24.Remote history of nicotine dependence. 25.Obesity with body mass index of 37.6. 26.FULL CODE. RECOMMENDATIONS AND DISCUSSION: In this 74-year-old gentleman who presented with multiple complex medical issues, we will monitor the patient closely, continue the current medications, continue symptomatic treatment. Cardizem drip. Resume the home medications. Closely follow with Cardiology. Otherwise, cardiac monitoring. Repeat labs. Prognosis is guarded because of the multiple complex medical issues. Further recommendations to follow. A copy of this dictation is being forwarded to [facility] and Lanie Patel, who is following the patient in the outpatient setting. [id number] / IJN: [id number] / DERRICK
[2019-10-03] MEDS: SODIUM CHLORIDE 0.9% 1,000 ML IV SCH (20:30)
[2019-10-04] MEDS ORDERED: CYCLOBENZAPRINE 5 MG TAB PO PRN
[2019-10-04] MEDS: ALLOPURINOL 300 MG TAB PO SCH (07:50)
[2019-10-04] MEDS: CHOLECALCIFEROL 1,000 UNIT TAB PO SCH (07:51)
[2019-10-04] MEDS: ASCORBIC ACID 500 MG TAB PO SCH (07:51)
[2019-10-04] MEDS: CYANOCOBALAMIN 500 MCG TAB PO SCH (07:51)
[2019-10-04] MEDS: DOCUSATE 100 MG CAP PO SCH ×2 (07:51→20:31)
[2019-10-04] MEDS: TROSPIUM CHLORIDE 20 MG TABLET PO SCH (07:51)
[2019-10-04] MEDS: cycloSPORINE 0.05% OPHTH 0.4 ML DROPERETTE BOTH EYES SCH ×2 (07:52→20:31)
[2019-10-04] MEDS: POTASSIUM CHLORIDE ER 10 MEQ TAB.ER.PRT PO SCH ×2 (07:52→20:30)
[2019-10-04] MEDS: FERROUS SULFATE 325 MG TAB PO SCH (07:52)
[2019-10-04] MEDS ORDERED: FUROSEMIDE 40 MG TAB PO SCH ×2 (09:00→21:00)
--- NOTE | 2019-10-04 09:20 | P.CRDCN ---
History of Present Illness Consult date: 10/04/19 Requesting physician: Nila Carrero Consult reason: atrial flutter Chief complaint: Shortness of breath, heart racing History of present illness: This is a pleasant 74-year-old gentleman who follows regularly with Dr. Nguyễn in the office. He has a past medical history significant for coronary artery disease and prior PCI in 2018 at which time the RCA was stented, severe aortic stenosis with recent TAVR procedure one month ago, paroxysmal atrial fibrillation, on Coumadin for anticoagulation, COPD, hyperlipidemia, asthma, and hypertension. According to the patient, for approximately 3 weeks now he has noticed his heart rate to be fast every time he checks his blood pressure at home. Over the 3 weeks she's been progressively more and more short of breath, he's noticed a significant amount of peripheral edema. Yesterday he went to see Dr. Nguyễn in the office, it was noted that the patient was in a rapid atrial flutter and patient was advised to come to the emergency room for admission to the hospital. His EKG on presentation here showed atrial flutter, typical, with a rapid ventricular response, heart rate 150. Chest x-ray showed mild pulmonary fibrosis, interstitial pulmonary density increased as compared with prior exam. Blood pressure on arrival to the emergency room 136/90 with a heart rate of 150, afebrile. 93% on room air. Blood pressure this morning 102/70 with a heart rate of 103, 98% on 2 L of oxygen. His heart rate is fluctuating from 100 to 1:30 this morning. Currently on Cardizem drip at 15 mg per hour. Laboratory data was reviewed, white blood cell count 7.3, hemoglobin 13.1, platelet count 206. Pro time this morning 31.5 with an INR 3.2. Sodium 138, potassium 3.9, BUN 21, creatinine 0.7, magnesium 1.9. Troponin 0.012. TSH 1.9 free T4 1 0.37. At the time of my examination this morning, patient is sitting up in the chair, continues to feel quite short of breath and continues to have significant lower extremity edema. Past Medical History Past Medical History: Atrial Fibrillation, Asthma, Coronary Artery Disease (CAD), Cancer, COPD, Diabetes Mellitus, GERD/Reflux, Hearing Disorder / Deafness, Hyperlipidemia, Hypertension, Osteoarthritis (OA), Pneumonia, Prostate Disorder, Sleep Apnea/CPAP/BIPAP, Vascular Disorder Additional Past Medical History / Comment(s): Prostate cancer. see Dr Nguyễn H&P FOR CARDIAC HISTORY , O2 2L PRN AND AT BEDTIME , hiatal hernia, kidney stones, "bad back", past a fib cardiomyopathy aortic stenosis, PRE-DIABETIC -DIET CONTROLLED, aortic valve replacment 09/03 History of Any Multi-Drug Resistant Organisms: None Reported Past Surgical History: Ablation, Bladder Surgery, Cholecystectomy, Heart Catheterization With Stent, Hernia Repair, Tonsillectomy Additional Past Surgical History / Comment(s): CARDIOVERSION, MUKESH FEMORAL BYPASS SURGERY, MUKESH.inguinal hernia, UMBILICAL HERNIA REPAIR, surgery for PILONIDAL CYST, mukesh CATARACTS, ARCH/AORTOGRAM, cystoscopy for KIDNEY STONE REMOVAL x 3, LT CAROTID ENDARTECTOMY. BRAYDEN 05/10/17, 06/06, 06/04/19, 2 stents to the RCA Past Anesthesia/Blood Transfusion Reactions: No Reported Reaction Date of Last Stent Placement:: 06/06/18 Past Psychological History: No Psychological Hx Reported Smoking Status: Former smoker Past Alcohol Use History: Daily Additional Past Alcohol Use History / Comment(s): QUIT SMOKING 1991, SMOKED SINCE AGE 17(1960). SMOKED 1-3 PPD DRINKS 1-2 BEER A DAY Past Drug Use History: None Reported - Past Family History Father Family Medical History: Liver Disease Mother Family Medical History: No Reported History Additional Family Medical History / Comment(s): . Medications and Allergies Home Medications Medication Instructions Recorded Confirmed Type Montelukast [Singulair] 10 mg PO HS 09/09/13 10/03/19 History Tamsulosin [Flomax] 0.4 mg PO HS 09/09/13 10/03/19 History Spironolactone 25 mg PO HS 04/03/14 10/03/19 History Cholecalciferol [Vitamin D3 (25 3,000 unit PO DAILY 06/09/15 10/03/19 History Mcg = 1000 Iu)] cycloSPORINE [Restasis] 1 drop BOTH EYES BID 06/09/15 10/03/19 History Budesonide-Formot 160-4.5 Mcg 2 puff INHALATION RT-BID 08/07/16 10/03/19 History [Symbicort 160-4.5 Mcg Inhaler] Fluticasone Nasal [place] [Flonase 2 spr EA NOSTRIL BID 08/07/16 10/03/19 History Nasal [place]] Loratadine [Claritin] 10 mg PO DAILY PRN 08/07/16 10/03/19 History Tiotropium 18 Mcg/Puff [Spiriva] 2 puff INHALATION RT-HS 08/07/16 10/03/19 History Atorvastatin [Lipitor] 40 mg PO HS 05/02/17 10/03/19 History Cyclobenzaprine [Flexeril] 5 mg PO HS PRN 05/02/17 10/03/19 History Solifenacin Succinate [Vesicare] 5 mg PO QAM 05/02/17 10/03/19 History Docusate [Colace] 200 mg PO DAILY 06/04/17 10/03/19 History Warfarin [Coumadin] 5 mg PO DAILY 06/04/17 10/03/19 History Nitroglycerin Sl Tabs [Nitrostat] 0.4 mg SUBLINGUAL Q5M PRN #25 tab 06/07/17 10/03/19 Rx Furosemide [Lasix] 80 mg PO QAM 06/20/17 10/03/19 History Aspirin EC [Ecotrin Low Dose] 81 mg PO DAILY 09/12/17 10/03/19 History Allopurinol [Zyloprim] 300 mg PO DAILY 05/30/19 10/03/19 History Docusate [Colace] 100 mg PO HS 05/30/19 10/03/19 History Metoprolol Succinate [Toprol XL] 25 mg PO HS 05/30/19 10/03/19 History Albuterol Inhaler [Ventolin Hfa 1 puff INHALATION RT-Q4H PRN 10/03/19 10/03/19 History Inhaler] Ascorbic Acid [Vitamin C] 1,000 mg PO DAILY 10/03/19 10/03/19 History Cyanocobalamin (Vitamin B-12) 2,500 mcg PO DAILY 10/03/19 10/03/19 History [Vitamin B-12] Esomeprazole Magnesium [NexIUM] 40 mg PO DAILY 10/03/19 10/03/19 History Ferrous Sulfate [Feosol] 325 mg PO DAILY 10/03/19 10/03/19 History Furosemide [Lasix] 40 mg PO HS 10/03/19 10/03/19 History Magnesium 250 mg PO BID 10/03/19 10/03/19 History Potassium Chloride 10 meq PO BID 10/03/19 10/03/19 History Allergies Allergy/AdvReac Type Severity Reaction Status Date / Time Rfankog-Xbz-Cmt Reductase Allergy Mild Rash/Hives Verified 10/03/19 20:55 Inhibitor Physical Exam Vitals: Vital Signs Temp Pulse Pulse Resp BP BP BP 10/04/19 07:49 96.3 F L 103 H 16 97/64 102/71 10/04/19 04:00 98 F 120 H 17 114/66 10/03/19 23:05 98.2 F 146 H 19 131/90 10/03/19 22:34 97.8 F 147 H 18 123/67 10/03/19 22:17 149 H 10/03/19 20:49 149 H 16 125/78 10/03/19 20:26 149 H 16 117/85 10/03/19 18:40 98.3 F 150 H 16 120/87 10/03/19 17:41 147 H 16 121/89 10/03/19 17:10 149 H 18 123/91 10/03/19 16:44 98.8 F 150 H 20 137/90 Pulse Ox 10/04/19 07:49 98 10/04/19 04:00 96 10/03/19 23:05 97 10/03/19 22:34 99 10/03/19 22:17 98 10/03/19 20:49 95 10/03/19 20:26 97 10/03/19 18:40 99 10/03/19 17:41 99 10/03/19 17:10 98 10/03/19 16:44 93 L Intake and Output 10/03/19 10/04/19 10/04/19 22:59 06:59 14:59 Intake Total 26.834 420 Output Total 625 Balance 26.834 -625 420 Intake: Intake, IV Titration 26.834 Amount Diltiazem 125 mg In 26.834 Sodium Chloride 0.9% 100 ml @ 10 MG/HR 10 mls/hr IV .[id number] [facility] Rx#: [id number] Oral 420 Output: Urine 625 Other: # Voids 1 Weight 117.934 kg 116.8 kg PHYSICAL EXAMINATION: GENERAL: 74-year-old gentleman in no acute distress at the time of my examination HEENT: Head is atraumatic, normocephalic. Pupils equal, round. Sclera anicteric. Conjunctiva are clear. Mucous membranes of the mouth are moist. Neck is supple. There is elevated jugular venous pressure. No carotid bruit is heard. HEART EXAMINATION: S1 and S2 irregularly irregular a soft systolic murmur is heard CHEST EXAMINATION: Lungs reveal diminished air entry to the bases bilaterally, rales heard bilaterally. ABDOMEN: Soft, obese, nontender. Bowel sounds are heard. No organomegaly noted. EXTREMITIES: 2+ peripheral pulses with 2-3+ evidence of peripheral edema and no calf tenderness noted. NEUROLOGIC patient is awake, alert and oriented 3 . Results 10/03/19 17:02 10/03/19 17:04 Cardiac Enzymes 10/03/19 10/03/19 Range/Units 17:04 17:04 AST 27 (17-59) U/L Troponin I <0.012 (0.000-0.034) ng/mL Coagulation 10/03/19 Range/Units 17:04 PT 31.5 H (9.0-12.0) sec APTT 35.1 H (22.0-30.0) sec CBC 10/03/19 Range/Units 17:02 WBC 7.3 (3.8-10.6) k/uL RBC 3.92 L (4.30-5.90) m/uL Hgb 13.1 (13.0-17.5) gm/dL Hct 40.0 (39.0-53.0) % Plt Count 206 (150-450) k/uL Comprehensive Metabolic Panel 10/03/19 Range/Units 17:04 Sodium 138 (137-145) mmol/L Potassium 3.9 (3.5-5.1) mmol/L Chloride 99 (98-107) mmol/L Carbon Dioxide 31 H (22-30) mmol/L BUN 21 H (9-20) mg/dL Creatinine 0.78 (0.66-1.25) mg/dL Glucose 121 H (74-99) mg/dL Calcium 9.0 (8.4-10.2) mg/dL AST 27 (17-59) U/L ALT 20 (4-49) U/L Alkaline Phosphatase 107 (38-126) U/L Total Protein 6.8 (6.3-8.2) g/dL Albumin 3.9 (3.5-5.0) g/dL Current Medications Generic Name Dose Route Start Last Admin Trade Name Freq PRN Reason Stop Dose Admin Allopurinol 300 mg 10/04/19 09:00 10/04/19 07:50 Zyloprim PO 300 mg DAILY [facility] Administration Ascorbic Acid 1,000 mg 10/04/19 09:00 10/04/19 07:51 Vitamin C PO 1,000 mg DAILY [facility] Administration Atorvastatin Calcium 40 mg 10/04/19 21:00 Lipitor PO HS J[facility]ITA Budesonide/Formoterol Fumarate 2 puff 10/04/19 08:00 Symbicort 160-4.5 Mcg Inhaler INHALATION RT-BID [facility] Cholecalciferol 3,000 unit 10/04/19 09:00 10/04/19 07:51 Vitamin D3 (25 Mcg = 1000 Iu) PO 3,000 unit DAILY [facility] Administration Cyanocobalamin 2,500 mcg 10/04/19 09:00 10/04/19 07:51 Vitamin B-12 PO 2,500 mcg DAILY [facility] Administration Cyclobenzaprine HCl 5 mg 10/04/19 00:00 Flexeril PO HS PRN sleep Cyclosporine 1 drops 10/04/19 09:00 10/04/19 07:52 Restasis 0.05% Ophth Soln BOTH EYES 1 drops BID [facility] Administration Docusate Sodium 100 mg 10/04/19 21:00 Colace PO HS J[facility]ITA Docusate Sodium 200 mg 10/04/19 09:00 10/04/19 07:51 Colace PO 200 mg DAILY [facility] Administration Ferrous Sulfate 325 mg 10/04/19 09:00 10/04/19 07:52 Feosol PO 325 mg DAILY [facility] Administration Furosemide 80 mg 10/04/19 09:00 10/04/19 07:51 Lasix PO 80 mg QAM [facility] Administration Furosemide 40 mg 10/04/19 21:00 Lasix PO HS [facility] Diltiazem HCl 125 mg/ Sodium 125 mls @ 10 mls/hr 10/03/19 17:00 10/03/19 20:50 Chloride IV 15 mg/hr .[id number] [facility] 15 mls/hr Infusion 10 MG/HR Sodium Chloride 1,000 mls @ 20 mls/hr 10/03/19 19:00 10/03/19 20:30 Saline 0.9% IV 20 mls/hr .Q24H [facility] Administration Ipratropium [place] 0.5 mg 10/04/19 20:00 Atrovent Nebulized INHALATION RT-QID [facility] Metoprolol Succinate 25 mg 10/04/19 21:00 Toprol Xl PO HS [facility] Montelukast Sodium 10 mg 10/04/19 21:00 Singulair PO HS [facility] Naloxone HCl 0.2 mg 10/03/19 18:54 Narcan IV Q2M PRN Opioid Reversal Potassium Chloride 10 meq 10/04/19 09:00 10/04/19 07:52 K-Dur 10 PO 10 meq BID [facility] Administration Spironolactone 25 mg 10/04/19 21:00 Aldactone PO HS [facility] Tamsulosin HCl 0.4 mg 10/04/19 21:00 Flomax PO HS [facility] Trospium 20 mg 10/04/19 09:00 10/04/19 07:51 Sanctura PO 20 mg QAM [facility] Administration Warfarin Sodium 5 mg 10/04/19 18:00 Coumadin PO DAILY [facility] Protocol Intake and Output 10/03/19 10/04/19 10/04/19 22:59 06:59 14:59 Intake Total 26.834 420 Output Total 625 Balance 26.834 -625 420 Intake: Intake, IV Titration 26.834 Amount Diltiazem 125 mg In 26.834 Sodium Chloride 0.9% 100 ml @ 10 MG/HR 10 mls/hr IV .[id number] [facility] Rx#: [id number] Oral 420 Output: Urine 625 Other: # Voids 1 Weight 117.934 kg 116.8 kg 10/03/19 17:02 10/03/19 17:04 EKG Interpretations (text) EKG shows atrial flutter with a rapid ventricular response Assessment and Plan Plan: Assessment and plan #1 typical atrial flutter with rapid ventricular response, currently on Cardizem drip at 15 mg per hour #2 congestive heart failure, likely diastolic in nature, acute on chronic, most recent echocardiogram with Doppler study performed showed an ejection fraction of 50-55%. #3 known history of coronary artery disease with prior stenting in 2018 #4 recent TAVR, one month ago, for severe aortic stenosis #5 hypertension #6 hyperlipidemia #7 paroxysmal atrial fibrillation on Coumadin for anticoagulation #7 asthma and COPD Plan Will obtain an echocardiogram with Doppler study. We will also obtain Dr. Nguyễn's note from the office. Discontinue by mouth Lasix and start the patient on IV Lasix. Increase dose of metoprolol, continue Coumadin to maintain an INR in the range of 2-2.5. Optimize heart rate control, continue to monitor the intake and output along with daily weights. Further recommendations to follow. DNP note has been reviewed, I agree with a documented findings and plan of care. Patient was seen and examined.
[2019-10-04] MEDS: SYMBICORT 160-4.5 MCG INHALER INHALATION SCH ×2 (09:35→19:28)
[2019-10-04] MEDS: FUROSEMIDE 10 MG/ML 4 ML VIAL IV SCH ×2 (10:34→20:30)
[2019-10-04] MEDS: METOPROLOL SUCCINATE (ER) 50 MG TAB.ER.24H PO SCH (10:34)
[2019-10-04] MEDS: DILTIAZEM 125 MG in SODIUM CHLORIDE 0.9% 100 ML IV SCH (11:09)
[2019-10-04] MEDS ORDERED: DEXTROSE 5% IN WATER 100 ML with AMIODARONE 150 MG IV ONE (11:31)
[2019-10-04] MEDS ORDERED: AMIODARONE 360 MG in DEXTROSE 5% IN WATER 200 ML IV ONE ×2 (11:31)
[2019-10-04 12:38] LABS: INR 2.7 (<1.2); Prothrombin Time 26.1 sec (9.0-12.0)
--- NOTE | 2019-10-04 13:43 | ECHOF ---
Referral Reason:atrial flutter/chf MEASUREMENTS -------- HEIGHT: 177.8 cm WEIGHT: 116.6 kg BP: 102/71 RVIDd: 3.6 cm (< 3.3) IVSd: 1.4 cm (0.6 - 1.1) LVIDd: 3.6 cm (3.9 - 5.3) LVPWd: 1.4 cm (0.6 - 1.1) IVSs: 2.0 cm LVIDs: 2.6 cm LVPWs: 2.1 cm LA Diam: 4.1 cm (2.7 - 3.8) Ao Diam: 3.0 cm (2.0 - 3.7) AV Cusp: 1.8 cm (1.5 - 2.6) MV EXCURSION: 14.837 mm (> 18.000) MV EF SLOPE: 128 mm/s (70 - 150) EPSS: 0.9 cm AV maxP.73 mmHg AV meanP.74 mmHg RAP: 5.00 mmHg RVSP: 31.97 mmHg FINDINGS -------- This was a technically adequate study. The left ventricular size is normal. There is moderate concentric left ventricular hypertrophy. O verall left ventricular systolic function is mild-moderately impaired with, an EF between 40 - 45 %. The right ventricle is mildly enlarged. The left atrium is mildly dilated. The right atrium is normal in size. 3 ml of Lumason was utilized for enhancement of images. Interatrial and interventricular septum intact. Peak/mean gradient across the Aortic Valve is 3.73mmHg / 1.74mmHg. TAVR procedure done few weeks ag o The mitral valve leaflets are mildly thickened. Mild mitral annular calcification present. Mild tricuspid regurgitation present. Right ventricular systolic pressure is normal at < 35 mmHg. The pulmonic valve was not well visualized. The aortic root size is normal. Normal inferior vena cava with normal inspiratory collapse consistent with estimated right atrial pre ssure of 5 mmHg. The inferior vena cava is mildly dilated. There is no pericardial effusion. CONCLUSIONS -------- 1. This was a technically adequate study. 2. The left ventricular size is normal. 3. There is moderate concentric left ventricular hypertrophy. 4. Overall left ventricular systolic function is mild-moderately impaired with, an EF between 40 - 45 %. 5. The right ventricle is mildly enlarged. 6. The left atrium is mildly dilated. 7. The right atrium is normal in size. 8. 3 ml of Lumason was utilized for enhancement of images. 9. Interatrial and interventricular septum intact. 10. Peak/mean gradient across the Aortic Valve is 3.73mmHg / 1.74mmHg. 11. TAVR procedure done few weeks ago 12. The mitral valve leaflets are mildly thickened. 13. Mild mitral annular calcification present. 14. Mild tricuspid regurgitation present. 15. Right ventricular systolic pressure is normal at < 35 mmHg. 16. The pulmonic valve was not well visualized. 17. The aortic root size is normal. 18. Normal inferior vena cava with normal inspiratory collapse consistent with estimated right atrial pressure of 5 mmHg. 19. The inferior vena cava is mildly dilated. 20. There is no pericardial effusion. [employer]: Yazmin Mendoza RDCS
[2019-10-04] MEDS: AMIODARONE 300 MG in DEXTROSE 5% IN WATER 250 ML IV SCH ×2 (17:44)
[2019-10-04] MEDS ORDERED: WARFARIN 2.5 MG TAB PO ONE (18:00)
[2019-10-04] MEDS ORDERED: WARFARIN 5 MG TAB PO SCH (18:00)
[2019-10-04] MEDS: IPRATROPIUM 0.5 MG/2.5 ML NEBU INHALATION SCH (19:28)
[2019-10-04] MEDS: TAMSULOSIN 0.4 MG CAP.ER.24H PO SCH (20:30)
[2019-10-04] MEDS: SPIRONOLACTONE 25 MG TAB PO SCH (20:30)
[2019-10-04] MEDS: ATORVASTATIN 40 MG TAB PO SCH (20:30)
[2019-10-04] MEDS: MONTELUKAST 10 MG TAB PO SCH (20:30)
[2019-10-04] MEDS: SODIUM CHLORIDE 0.9% 1,000 ML IV SCH (20:31)
[2019-10-04] MEDS ORDERED: METOPROLOL SUCCINATE (ER) 25 MG TAB.ER.24H PO SCH (21:00)
--- NOTE | 2019-10-04 23:02 | PN ---
PROGRESS NOTE DATE OF SERVICE: 10/04/2019 DATE OF SERVICE: This 74-year-old gentleman who was admitted with atrial flutter with a fast ventricular rate is being started on IV amiodarone at this time. Cardiology following the patient closely. A 2D echo with Doppler was done today which showed ejection fraction about 40- 45%. The patient also had bilateral leg edema. IV Lasix initiated. Patient closely monitored. PAST MEDICAL HISTORY: Reviewed. REVIEW OF SYSTEMS: CARDIOVASCULAR: No angina, palpitations. Otherwise as mentioned earlier. RESPIRATORY: No cough. GI: As mentioned earlier. GI: No dysuria. NERVOUS SYSTEM: No numbness or weakness. CURRENT MEDICATIONS: Zyloprim 300 mg daily, amiodarone, vitamin C, Lipitor, Symbicort 4.5, vitamin D3, vitamin B12, Flexeril, cyclosporine, Cardizem, Colace, iron sulfate, Lasix, Atrovent, Toprol-XL, Singulair, Narcan, K-Dur, aldactone, Flomax, Sanctura. PHYSICAL EXAM: Patient is alert and oriented x3. Pulse 87, blood pressure 103/69, respiration 18, temperature 97.4, pulse ox 98% on room air. HEENT: Conjunctivae normal. Oral mucosa moist. NECK: No jugular venous distention. No lymph node enlargement. CARDIOVASCULAR: S1, S2, muffled. No S3, no S4, RESPIRATORY: Diminished breath sounds at the bases. A few scattered rhonchi and crackles. ABDOMEN: Soft, obese, nontender. LEGS: Bilateral leg edema. NERVOUS SYSTEM: No focal deficits. LABS: At this time show WBC 7.2, hemoglobin 13.1. INR is 2.7 and glucose 121. COVID-19 is negative. ASSESSMENT: 1. Atrial flutter with fast ventricular rate. 2. Congestive heart failure acute exacerbation with acute on chronic systolic dysfunction, ejection fraction 40-45%. 3. TAVR done a few weeks ago for severe aortic stenosis. 4. History of atrial fibrillation. 5. History of asthma, chronic intermittent. 6. History of coronary artery disease. 7. History of chronic obstructive pulmonary disease. 8. Diabetes mellitus type 2. 9. Gastroesophageal reflux disease. 10.History of hard of hearing. 11.Hypertension. 12.Hyperlipidemia. 13.History of degenerative joint disease. 14.History of pneumonia. 15.History of sleep apnea. 16.History of prostate cancer. 17.History of chronic hypoxic respiratory failure. 18.History of hiatal hernia. 19.History of nephrolithiasis. 20.History of cardiomyopathy in the past. 21.History of cardiac ablation. 22.History of coronary artery disease, stent. 23.History of cardioversion. 24.History of peripheral vascular disease and femoral bypass surgery. 25.Remote history of nicotine dependence. 26.Obesity with body mass index of 37.6. 27.FULL CODE. RECOMMENDATIONS AND DISCUSSION: Recommend to continue current medications, continue symptomatic treatment. Continue with amiodarone drip. Otherwise, the patient has also been started on intravenous Lasix 40 IV b.i.d. I would also recommend fluid restriction 1500 mL per 24 hours. Continue to monitor. Continue the rest of medications. Monitor PT, INR closely. Prognosis guarded because of multiple complex medical issues. Further recommendations to follow. SHAHRAM / MECCA: [id number] /
[2019-10-05] MEDS: AMIODARONE 300 MG in DEXTROSE 5% IN WATER 250 ML IV SCH ×2 (03:44)
[2019-10-05 06:48] LABS: INR 2.7 (<1.2); Prothrombin Time 26.1 sec (9.0-12.0)
[2019-10-05] MEDS: IPRATROPIUM 0.5 MG/2.5 ML NEBU INHALATION SCH ×4 (07:25→19:50)
[2019-10-05] MEDS: SYMBICORT 160-4.5 MCG INHALER INHALATION SCH (07:25)
[2019-10-05] MEDS: POTASSIUM CHLORIDE ER 10 MEQ TAB.ER.PRT PO SCH ×2 (08:06→20:11)
[2019-10-05] MEDS: DOCUSATE 100 MG CAP PO SCH ×2 (08:06→20:11)
[2019-10-05] MEDS: FUROSEMIDE 10 MG/ML 4 ML VIAL IV SCH ×2 (08:06→20:11)
[2019-10-05] MEDS: CHOLECALCIFEROL 1,000 UNIT TAB PO SCH (08:06)
[2019-10-05] MEDS: TROSPIUM CHLORIDE 20 MG TABLET PO SCH (08:07)
[2019-10-05] MEDS: cycloSPORINE 0.05% OPHTH 0.4 ML DROPERETTE BOTH EYES SCH ×2 (08:07→20:11)
[2019-10-05] MEDS: FERROUS SULFATE 325 MG TAB PO SCH (08:07)
[2019-10-05] MEDS: ASCORBIC ACID 500 MG TAB PO SCH (08:07)
[2019-10-05] MEDS: ALLOPURINOL 300 MG TAB PO SCH (08:07)
[2019-10-05] MEDS: METOPROLOL SUCCINATE (ER) 50 MG TAB.ER.24H PO SCH (08:07)
[2019-10-05] MEDS: CYANOCOBALAMIN 500 MCG TAB PO SCH (08:08)
[2019-10-05] MEDS: DILTIAZEM 125 MG in SODIUM CHLORIDE 0.9% 100 ML IV SCH (08:16)
[2019-10-05 10:43] LABS: African American GFR (CKD) >90 (>60 ml/min/1.73 sqM); Anion Gap 9 mmol/L; Blood Urea Nitrogen 26 mg/dL (9-20); Calcium 9.6 mg/dL (8.4-10.2); Carbon Dioxide 28 mmol/L (22-30); Chloride 99 mmol/L (98-107); Glucose 116 mg/dL (74-99); Non-African American GFR(CKD) 85 (>60 ml/min/1.73 sqM); Sodium 136 mmol/L (137-145)
[2019-10-05] MEDS: METOPROLOL SUCCINATE (ER) 25 MG TAB.ER.24H PO SCH (12:11)
--- NOTE | 2019-10-05 12:32 | P.PN ---
Subjective Progress Note Date: 10/05/19 This is a pleasant 74-year-old gentleman who follows regularly with Dr. Nguyễn in the office. He has a past medical history significant for coronary artery disease and prior PCI in 2018 at which time the RCA was stented, severe aortic stenosis with recent TAVR procedure one month ago, paroxysmal atrial fibrillation, on Coumadin for anticoagulation, COPD, hyperlipidemia, asthma, and hypertension. According to the patient, for approximately 3 weeks now he has noticed his heart rate to be fast every time he checks his blood pressure at home. Over the 3 weeks she's been progressively more and more short of breath, he's noticed a significant amount of peripheral edema. Yesterday he went to see Dr. Nguyễn in the office, it was noted that the patient was in a rapid atrial flutter and patient was advised to come to the emergency room for admission to the hospital. His EKG on presentation here showed atrial flutter, typical, with a rapid ventricular response, heart rate 150. Chest x-ray showed mild pulmonary fibrosis, interstitial pulmonary density increased as compared wi prior exam. Blood pressure on arrival to the emergency room 136/90 with a heart rate of 150, afebrile. 93% on room air. Blood pressure this morning 102/70 with a heart rate of 103, 98% on 2 L of oxygen. His heart rate is fluctuating from 100 to 1:30 this morning. Currently on Cardizem drip at 15 mg per hour. Laboratory data was reviewed, white blood cell count 7.3, hemoglobin 13.1, platelet count 206. Pro time this morning 31.5 with an INR 3.2. Sodium 138, potassium 3.9, BUN 21, creatinine 0.7, magnesium 1.9. Troponin 0.012. TSH 1.9 free T4 1 0.37. At the time of my examination this morning, patient is sitting up in the chair, continues to feel quite short of breath and continues to have significant lower extremity edema. 10/05/2019 Patient was seen and examined this morning, he's no longer in atrial flutter, he is in atrial fibrillation this morning with a heart rate in the 80s. Echocardiogram with Doppler study revealed a ejection fraction of 40-45%. He diuresed well through the night last night. Blood pressure this morning 128/90, heart rate 1 teens, 94% on room air. INR today is 2.7, sodium 136, potassium 4.0, BUN 26, creatinine 0.8. Echocardiogram with Doppler study was performed which revealed an ejection fraction of 40-45%. Objective - Vital Signs Vital signs: Vital Signs Temp 98 F 10/05/19 11:20 Pulse 129 H 10/05/19 12:25 Resp 18 10/05/19 11:20 BP 128/91 10/05/19 11:20 Pulse Ox 94 L 10/05/19 11:20 Intake & Output 10/04/19 10/05/19 10/05/19 18:59 06:59 18:59 Intake Total 780 915 180 Output Total 2650 800 550 Balance -1870 115 -370 Weight 116.9 kg Intake: Intake, IV Titration 375 Amount Amiodarone 300 mg In 250 Dextrose 5% in Water 250 ml @ 0.5 MG/MIN 25 mls/hr IV .Q10H [facility] Rx#: [id number] Diltiazem 125 mg In 125 Sodium Chloride 0.9% 100 ml @ 10 MG/HR 10 mls/hr IV .[id number] [facility] Rx#: [id number] Oral 780 540 180 Output: Urine 2650 800 550 Other: # Voids 2 2 - Exam PHYSICAL EXAMINATION: GENERAL: 74-year-old gentleman in no acute distress at the time of my examination HEENT: Head is atraumatic, normocephalic. Pupils equal, round. Sclera anicteric. Conjunctiva are clear. Mucous membranes of the mouth are moist. Neck is supple. There is elevated jugular venous pressure. No carotid bruit is heard. HEART EXAMINATION: S1 and S2 irregularly irregular a soft systolic murmur is heard CHEST EXAMINATION: Lungs reveal improvement, but continued diminished air entry to the bases bilaterally, rales heard bilaterally. ABDOMEN: Soft, obese, nontender. Bowel sounds are heard. No organomegaly noted. EXTREMITIES: 2+ peripheral pulses with 2+ evidence of peripheral edema and no calf tenderness noted. NEUROLOGIC patient is awake, alert and oriented 3 - Labs CBC & Chem 7: 10/03/19 17:02 10/05/19 05:57 Labs: Abnormal Lab Results - Last 24 Hours (Table) 10/04/19 10/05/19 10/05/19 Range/Units 12:04 05:57 05:57 PT 26.1 H 26.1 H (9.0-12.0) sec INR 2.7 H 2.7 H (<1.2) Sodium 136 L (137-145) mmol/L BUN 26 H (9-20) mg/dL Glucose 116 H (74-99) mg/dL Assessment and Plan Plan: Assessment and plan #1 typical atrial flutter with rapid ventricular response, currently on Cardizem drip at 15 mg per hour #2 congestive heart failure, likely diastolic in nature, acute on chronic, most recent echocardiogram with Doppler study performed showed an ejection fraction of 50-55%. #3 known history of coronary artery disease with prior stenting in 2018 #4 recent TAVR, one month ago, for severe aortic stenosis #5 hypertension #6 hyperlipidemia #7 paroxysmal atrial fibrillation on Coumadin for anticoagulation #7 asthma and COPD Plan From cardiology's perspective, we'll discontinue the IV Cardizem and increase t he dose of beta faustino. Once the IV amiodarone has infused we will start the patient on oral amiodarone 200 mg one tablet by mouth 3 times a day. Repeat a chest x-ray tomorrow. Continue IV Lasix. Monitor INR closely as the patient is on amiodarone. DNP note has been reviewed, I agree with a documented findings and plan of care. Patient was seen and examined.
[2019-10-05] MEDS: AMIODARONE 200 MG TAB PO SCH ×2 (13:44→23:24)
--- NOTE | 2019-10-05 16:35 | PN ---
PROGRESS NOTE DATE OF SERVICE: 10/05/2019 This 74-year-old gentleman who was admitted with atrial flutter also had fast ventricular rate. The patient is on Cardizem and amiodarone. The medications by cardiology. Echocardiogram, 2D echo showed ejection fraction 40-45 percent on TAVR procedure. PHYSICAL EXAMINATION: Alert and oriented x3. Pulse is 125, irregular. Blood pressure is 128/91, respiration 18, temperature 98 degrees, pulse ox 94% on 2 L. HEENT: Conjunctivae normal. NECK: No JVD. CARDIOVASCULAR: S1, S2 muffled. RESPIRATIONS: few scattered rhonchi. ABDOMEN: Soft, nontender. NERVOUS SYSTEM: No focal deficits. LAB STUDIES: Hemoglobin 13.1. Sodium 136. ASSESSMENT: 1. Atrial flutter with fast ventricular rate. 2. Congestive heart failure acute exacerbation with acute on chronic systolic dysfunction, ejection fraction 40-45 percent. 3. TAVR done a few weeks ago for severe aortic stenosis. 4. History of atrial fibrillation, chronic paroxysmal. 5. History of asthma, chronic, intermittent. 6. History of coronary artery disease. 7. History of chronic obstructive pulmonary disease. 8. Diabetes type 2. 9. Gastroesophageal reflux disease. 10.Hard of hearing. 11.Hypertension. 12.Hyperlipidemia. 13.History of degenerative joint disease. 14.History of pneumonia. 15.Sleep apnea. 16.History of prostate cancer. 17.History of chronic hypoxic respiratory failure. 18.History of hiatal hernia. 19.History of nephrolithiasis. 20.History of cardiomyopathy in the past. 21.History of cardiac ablation. 22.History of coronary artery disease/stent. 23.History of cardioversion. 24.History of peripheral vascular disease and femoral bypass surgery. 25.Remote history of nicotine dependence. 26.Obesity with body mass index of 37.6. 27.FULL CODE. RECOMMENDATIONS AND DISCUSSION: Recommend to continue current medications, monitoring and symptomatic treatment. Otherwise, at this time, closely follow with Cardiology. Monitor PT, INR closely. Guarded prognosis. Further recommendations to follow. MMODL / NILDAN: [id number] /
[2019-10-05] MEDS: DIGOXIN 250 MCG TAB PO SCH (17:10)
[2019-10-05] MEDS ORDERED: WARFARIN 2.5 MG TAB PO ONE (18:00)
[2019-10-05] MEDS: SPIRONOLACTONE 25 MG TAB PO SCH (20:11)
[2019-10-05] MEDS: TAMSULOSIN 0.4 MG CAP.ER.24H PO SCH (20:11)
[2019-10-05] MEDS: ATORVASTATIN 40 MG TAB PO SCH (20:11)
[2019-10-05] MEDS: MONTELUKAST 10 MG TAB PO SCH (20:11)
[2019-10-05] MEDS: SODIUM CHLORIDE 0.9% 1,000 ML IV SCH (23:19)
[2019-10-06 07:29] LABS: African American GFR (CKD) >90 (>60 ml/min/1.73 sqM); Anion Gap 5 mmol/L; Blood Urea Nitrogen 24 mg/dL (9-20); Carbon Dioxide 35 mmol/L (22-30); Chloride 99 mmol/L (98-107); Glucose 110 mg/dL (74-99); Non-African American GFR(CKD) 88 (>60 ml/min/1.73 sqM); Potassium 4.1 mmol/L (3.5-5.1); Sodium 139 mmol/L (137-145)
[2019-10-06 07:32] LABS: INR 2.3 (<1.2); Prothrombin Time 22.8 sec (9.0-12.0)
[2019-10-06] MEDS: CHOLECALCIFEROL 1,000 UNIT TAB PO SCH (08:16)
[2019-10-06] MEDS: DOCUSATE 100 MG CAP PO SCH ×2 (08:17→21:16)
[2019-10-06] MEDS: CYANOCOBALAMIN 500 MCG TAB PO SCH (08:17)
[2019-10-06] MEDS: POTASSIUM CHLORIDE ER 10 MEQ TAB.ER.PRT PO SCH ×2 (08:17→21:15)
[2019-10-06] MEDS: TROSPIUM CHLORIDE 20 MG TABLET PO SCH (08:17)
[2019-10-06] MEDS: DIGOXIN 250 MCG TAB PO SCH (08:17)
[2019-10-06] MEDS: AMIODARONE 200 MG TAB PO SCH ×3 (08:18→21:15)
[2019-10-06] MEDS: FERROUS SULFATE 325 MG TAB PO SCH (08:18)
[2019-10-06] MEDS: METOPROLOL SUCCINATE (ER) 25 MG TAB.ER.24H PO SCH (08:18)
[2019-10-06] MEDS: ASCORBIC ACID 500 MG TAB PO SCH (08:18)
[2019-10-06] MEDS: cycloSPORINE 0.05% OPHTH 0.4 ML DROPERETTE BOTH EYES SCH ×2 (08:18→21:16)
[2019-10-06] MEDS: FUROSEMIDE 10 MG/ML 4 ML VIAL IV SCH (08:19)
[2019-10-06] MEDS: ALLOPURINOL 300 MG TAB PO SCH (08:19)
[2019-10-06] MEDS: IPRATROPIUM 0.5 MG/2.5 ML NEBU INHALATION SCH ×4 (08:55→19:37)
--- NOTE | 2019-10-06 09:59 | XR ---
EXAMINATION TYPE: XR chest 2V DATE OF EXAM: 10/06/2019 COMPARISON: Prior chest x-ray 10/03/2019 HISTORY: Congestive heart failure, follow-up TECHNIQUE: Frontal and lateral views of the chest are obtained on 3 images. FINDINGS: There is no focal air space opacity, pleural effusion, or pneumothorax seen. The cardiac silhouette size is within normal limits. The osseous structures are intact. Probable large hiatal h ernia with partial intrathoracic stomach noted. Patient shows aortic valve replacement change as on p rior. Aorta is dense. Some mild linear opacities present at the lung bases may represent scarring as on prior. Mitral annular calcification is present. IMPRESSION: No acute cardiopulmonary process. Additional findings above.
--- NOTE | 2019-10-06 12:04 | P.PN ---
Subjective Progress Note Date: 10/06/19 This is a pleasant 74-year-old gentleman who follows regularly with Dr. Nguyễn in the office. He has a past medical history significant for coronary artery disease and prior PCI in 2018 at which time the RCA was stented, severe aortic stenosis with recent TAVR procedure one month ago, paroxysmal atrial fibrillation, on Coumadin for anticoagulation, COPD, hyperlipidemia, asthma, and hypertension. According to the patient, for approximately 3 weeks now he has noticed his heart rate to be fast every time he checks his blood pressure at home. Over the 3 weeks she's been progressively more and more short of breath, he's noticed a significant amount of peripheral edema. Yesterday he went to see Dr. Nguyễn in the office, it was noted that the patient was in a rapid atrial flutter and patient was advised to come to the emergency room for admission to the hospital. His EKG on presentation here showed atrial flutter, typical, with a rapid ventricular response, heart rate 150. Chest x-ray showed mild pulmonary fibrosis, interstitial pulmonary density increased as compared wi th prior exam. Blood pressure on arrival to the emergency room 136/90 with a heart rate of 150, afebrile. 93% on room air. Blood pressure this morning 102/70 with a heart rate of 103, 98% on 2 L of oxygen. His heart rate is fluctuating from 100 to 1:30 this morning. Currently on Cardizem drip at 15 mg per hour. Laboratory data was reviewed, white blood cell count 7.3, hemoglobin 13.1, platelet count 206. Pro time this morning 31.5 with an INR 3.2. Sodium 138, potassium 3.9, BUN 21, creatinine 0.7, magnesium 1.9. Troponin 0.012. TSH 1.9 free T4 1 0.37. At the time of my examination this morning, patient is sitting up in the chair, continues to feel quite short of breath and continues to have significant lower extremity edema. 10/05/2019 Patient was seen and examined this morning, he's no longer in atrial flutter, he is in atrial fibrillation this morning with a heart rate in the 80s. Echocardiogram with Doppler study revealed a ejection fraction of 40-45%. He diuresed well through the night last night. Blood pressure this morning 128/90, heart rate 1 teens, 94% on room air. INR today is 2.7, sodium 136, potassium 4.0, BUN 26, creatinine 0.8. Echocardiogram with Doppler study was performed which revealed an ejection fraction of 40-45%. 10/06/2019 Patient seen and examined this morning, continues to do well overall. Diuresed well through the night last night his weight is essentially unchanged this morning BUN today is 24 creatinine 0.8, blood pressure 100/60 with a heart rate in the 80s INR today is 2.3. He had a repeat chest x-ray this morning which did not show any evidence of congestive heart failure. Objective - Vital Signs Vital signs: Vital Signs Temp 97.6 F 10/06/19 11:10 Pulse 74 10/06/19 11:10 Resp 18 10/06/19 11:10 BP 123/70 10/06/19 11:10 Pulse Ox 96 10/06/19 11:10 Intake & Output 10/05/19 10/06/19 10/06/19 18:59 06:59 18:59 Intake Total 780 480 240 Output Total 850 1450 750 Balance -70 -970 -510 Weight 116.3 kg Intake: Oral 780 480 240 Output: Urine 850 1450 750 Other: # Voids 1 - Exam PHYSICAL EXAMINATION: GENERAL: 74-year-old gentleman in no acute distress at the time of my examination HEENT: Head is atraumatic, normocephalic. Pupils equal, round. Sclera anicteric. Conjunctiva are clear. Mucous membranes of the mouth are moist. Neck is supple. There is elevated jugular venous pressure. No carotid bruit is heard. HEART EXAMINATION: S1 and S2 irregularly irregular a soft systolic murmur is heard CHEST EXAMINATION: Lungs reveal improvement, but continued diminished air entry to the bases bilaterally, rales heard bilaterally. ABDOMEN: Soft, obese, nontender. Bowel sounds are heard. No organomegaly noted. EXTREMITIES: 2+ peripheral pulses with trace evidence of peripheral edema and no calf tenderness noted. NEUROLOGIC patient is awake, alert and oriented 3 - Labs CBC & Chem 7: 10/03/19 17:02 10/06/19 06:52 Labs: Abnormal Lab Results - Last 24 Hours (Table) 10/06/19 10/06/19 Range/Units 06:52 06:52 PT 22.8 H (9.0-12.0) sec INR 2.3 H (<1.2) Carbon Dioxide 35 H (22-30) mmol/L BUN 24 H (9-20) mg/dL Glucose 110 H (74-99) mg/dL Assessment and Plan Plan: Assessment and plan #1 typical atrial flutter with rapid ventricular response, currently on Cardizem drip at 15 mg per hour #2 congestive heart failure, likely diastolic in nature, acute on chronic, most recent echocardiogram with Doppler study performed showed an ejection fraction of 50-55%. #3 known history of coronary artery disease with prior stenting in 2018 #4 recent TAVR, one month ago, for severe aortic stenosis #5 hypertension #6 hyperlipidemia #7 paroxysmal atrial fibrillation on Coumadin for anticoagulation #7 asthma and COPD Plan From cardiology's perspective, we will discontinue the IV Lasix and start the patient on Lasix 40 mg one tablet by mouth twice a day from cardiology's perspective, patient may be able to be discharged home, follow-up appointment in the office post discharge. DNP note has been reviewed, I agree with a documented findings and plan of care. Patient was seen and examined.
[2019-10-06] MEDS: MENTHOL (NICE) LOZENGE MUCOUS MEM PRN ×2 (15:09→21:15)
--- NOTE | 2019-10-06 16:40 | CDI ---
Documentation Clarification Form Date: 10/06/2019 04:16:19 PM From: Margaret Oropeza RN CCDS Email: [email or web address] Admit Date: 10/03/2019 06:54:00 PM Patient Name: Mau Mccullough V Visit Number: [id number] Discharge Date: ATTENTION: The Clinical Documentation Specialists (CDI) and [facility] Coding Staff appreciate your assistance in clarifying documentation. Please respond to the clarification below the line at the bottom and electronically sign. The CDI & [facility] Coding staff will review the response and follow-up if needed. Please note: Queries are made part of the Legal Health Record. If you have any questions, please contact the author of this message via ITS. Dr. Nila Carrero Conflicting documentation has been found in the medical record: 10/03 Your Progress Note: Congestive heart failure acute exacerbation with acute on chronic systolic dysfunction, ejection fraction 40-4%. 10/03 Cardiology Consult: Congestive heart failure, likely diastolic in nature, acute on chronic, most recent echocardiogram with Doppler study performed showed an ejection fraction of 50/55%. History/Risk Factors: 74-year-old male presents to the ED from Dr Trujillo office today and was advised to go to the ED. Medical History Atrial fibrillation, history of asthma, CAD, COPD, DM and HTN Clinical Indicators: 10/03 Echocardiogram: Mild concentric left ventricular hypertrophy. Overall left ventricular systolic function is mild to moderately impaired with an EF between 40-45% 10/04 Cardiology Progress Note: Echocardiogram with Doppler study was performed which revealed an ejection fraction of 40-45% Treatment: 10/03 Lasix 40mg Iv Q 12 HR JULITA changed 10/05 40mg PO, Aldactone 25mg PO HS 10/03 Toprol xl 50mg PO Daily CHANGED 10/04 75mg PO Daily In your opinion, what is the most clinically appropriate diagnosis for this patient? Acute on Chronic Systolic Heart Failure Acute on Chronic Diastolic Heart Failure Acute on Chronic Systolic & Diastolic Heart Failure Other explanation of clinical findings Unable to determine (no explanation for clinical findings) (Last Revision: July 2017) Acute on Chronic Systolic Heart Failure MTDD
[2019-10-06] MEDS: FUROSEMIDE 40 MG TAB PO SCH (16:45)
[2019-10-06] MEDS ORDERED: WARFARIN 2.5 MG TAB PO ONE (18:00)
--- NOTE | 2019-10-06 20:57 | PN ---
PROGRESS NOTE DATE OF SERVICE: 10/06/2019 This 74-year-old gentleman who was admitted with atrial flutter also had a fast ventricular rate. The patient is on Cardizem and amiodarone. The patient tried to do p.o. medications. Patient also has CHF. The most recent chest x-ray, which was reviewed by me, showed no acute cardiopulmonary process. PHYSICAL EXAMINATION: Alert and oriented x3. Pulse is 76, blood pressure 107/63, respiration 18, temperature 97.8, pulse ox 94% on room air. HEENT: Conjunctivae normal. NECK: No jugular venous distention. CARDIOVASCULAR SYSTEM: S1, S2 muffled. RESPIRATORY SYSTEM: Breath sounds diminished at the bases. A few scattered rhonchi. ABDOMEN: Soft. LEGS: Bilateral leg edema. NERVOUS SYSTEM: No focal deficit. LABS: INR 2.3. ASSESSMENT: 1. Atrial flutter with a fast ventricular rate. 2. Congestive heart failure, acute exacerbation, with acute on chronic systolic dysfunction, ejection fraction 40% to 45%. 3. Transcatheter aortic valve replacement done a few weeks ago for severe aortic stenosis. 4. History of atrial fibrillation, chronic, paroxysmal. 5. History of asthma, chronic, intermittent. 6. History of coronary artery disease. 7. History of chronic obstructive pulmonary disease. 8. Diabetes mellitus, type 2. 9. Gastroesophageal reflux disease. 10.Hard of hearing. 11.Hypertension. 12.Hyperlipidemia. 13.History of degenerative joint disease. 14.History of pneumonia. 15.History of sleep apnea. 16.History of prostate cancer. 17.History of chronic hypoxic respiratory failure. 18.History of hiatal hernia. 19.History of nephrolithiasis. 20.History of cardiomyopathy in the past. 21.History of cardiac ablation. 22.History of coronary artery disease, stent. 23.History of cardioversion. 24.History of peripheral vascular disease and femoral bypass surgery. 25.Remote history of nicotine dependence. 26.Obesity with a body mass index of 37.6. 27.FULL CODE. RECOMMENDATIONS AND DISCUSSION: I recommend to continue current medications, continue with the monitoring, symptomatic treatment. Monitor PT, INR closely. Continue with p.o. amiodarone. Continue with the Lasix. Closely follow with Cardiology. Guarded prognosis. Further recommendations to follow. MMODL / IJN: [id number] /
[2019-10-06] MEDS: TAMSULOSIN 0.4 MG CAP.ER.24H PO SCH (21:15)
[2019-10-06] MEDS: MONTELUKAST 10 MG TAB PO SCH (21:15)
[2019-10-06] MEDS: ATORVASTATIN 40 MG TAB PO SCH (21:16)
[2019-10-06] MEDS: SODIUM CHLORIDE 0.9% 1,000 ML IV SCH (21:16)
[2019-10-06] MEDS: SPIRONOLACTONE 25 MG TAB PO SCH (21:16)
[2019-10-07 07:11] LABS: INR 2.1 (<1.2)
[2019-10-07 07:12] LABS: Prothrombin Time 20.8 sec (9.0-12.0)
[2019-10-07 07:21] LABS: African American GFR (CKD) >90 (>60 ml/min/1.73 sqM); Anion Gap 6 mmol/L; Blood Urea Nitrogen 26 mg/dL (9-20); Calcium 9.8 mg/dL (8.4-10.2); Carbon Dioxide 33 mmol/L (22-30); Chloride 98 mmol/L (98-107); Glucose 107 mg/dL (74-99); Non-African American GFR(CKD) 85 (>60 ml/min/1.73 sqM); Sodium 137 mmol/L (137-145)
[2019-10-07 07:41] LABS: Potassium 4.5 mmol/L (3.5-5.1)
[2019-10-07] MEDS: IPRATROPIUM 0.5 MG/2.5 ML NEBU INHALATION SCH ×3 (07:55→16:35)
[2019-10-07 08:16] VITALS: RESP 18; TEMP 97.2
--- NOTE | 2019-10-07 08:26 | P.TEE ---
Indications for Procedure(s): Severe aortic stenosis Date of Procedure: 10/07/19 Preoperative Diagnosis: Severe aortic stenosis Postoperative Diagnosis: close to severe aortic stenosis and moderate mitral regurgitation Procedure(s) Performed: BRAYDEN examination Description of Procedure(s): INDICATION: Mr. Mau Mccullough is a 74-year-old gentleman who was diagnosed to have severe aortic stenosis by transthoracic echo. A BRAYDEN examination is recommended reassess aortic valve CONSENT:. Informed consent was obtained from the patient verbally PROCEDURE: Patient was brought to the lab in a fasting state. He was prepped and draped in the usual fashion. Patient was given IV sedation of 1.5 mg of Versed and 25 g of fentanyl. A lubricated Omni probe was introduced into the oropharynx and was advanced into the esophagus. Patient tolerated the procedure well. Color, pulsed and continuous wave Doppler was performed. Saline contrast bubble injection was also done. Patient tolerated the procedure well FINDINGS:. The aortic valve is calcified with restricted opening excursion. By planimetry, and valve area of 0.9-1.1 was obtained with mean value of about 1. A peak gradient of about 55 and mean of about 30 was obtained across the aortic valve. There is mild aortic regurgitation. The mitral valve showed severe annular calcification. There is central and also eccentric mitral regurgitation directed laterally and posteriorly. The PISA value is about 0.4 suggestive of moderate aortic regurgitation. The interatrial septum is intact without any spontaneous and periods. Saline contrast injections did not reveal any passing of the bubbles. 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 The left atrial appendage is free of any clot. No reversal of flow in the pulmonary veins. Left ankle function appear to be fair. The aorta showed mild plaque IMPRESSION: #1. Close to severe aortic stenosis. #2. Moderate mitral regurgitation #3. Severe mitral annular calcification #4. Left atrial appendage is free of any clot. #5. No shunt across intra-atrial septum. #6. LV function is preserved. #7. Mild plaque in the aorta PLAN: Aortic valve replacement plus or minus mitral valve repair/replacement
[2019-10-07] MEDS: ASCORBIC ACID 500 MG TAB PO SCH (09:54)
[2019-10-07] MEDS: METOPROLOL SUCCINATE (ER) 25 MG TAB.ER.24H PO SCH (09:54)
[2019-10-07] MEDS: FERROUS SULFATE 325 MG TAB PO SCH (09:54)
[2019-10-07] MEDS: DOCUSATE 100 MG CAP PO SCH (09:54)
[2019-10-07] MEDS: CYANOCOBALAMIN 500 MCG TAB PO SCH (09:54)
[2019-10-07] MEDS: ALLOPURINOL 300 MG TAB PO SCH (09:54)
[2019-10-07] MEDS: DIGOXIN 250 MCG TAB PO SCH (09:55)
[2019-10-07] MEDS: POTASSIUM CHLORIDE ER 10 MEQ TAB.ER.PRT PO SCH (09:55)
[2019-10-07] MEDS: TROSPIUM CHLORIDE 20 MG TABLET PO SCH (09:55)
[2019-10-07] MEDS: FUROSEMIDE 40 MG TAB PO SCH (09:55)
[2019-10-07] MEDS: AMIODARONE 200 MG TAB PO SCH (09:55)
[2019-10-07] MEDS: CHOLECALCIFEROL 1,000 UNIT TAB PO SCH (09:55)
[2019-10-07] MEDS: cycloSPORINE 0.05% OPHTH 0.4 ML DROPERETTE BOTH EYES SCH (09:55)
[2019-10-07] MEDS ORDERED: SYMBICORT 160-4.5 MCG INHALER INHALATION STA (11:03)
--- NOTE | 2019-10-07 12:26 | P.PN ---
Subjective Progress Note Date: 10/07/19 This is a pleasant 74-year-old gentleman who follows regularly with Dr. Nguyễn in the office. He has a past medical history significant for coronary artery disease and prior PCI in 2018 at which time the RCA was stented, severe aortic stenosis with recent TAVR procedure one month ago, paroxysmal atrial fibrillation, on Coumadin for anticoagulation, COPD, hyperlipidemia, asthma, and hypertension. According to the patient, for approximately 3 weeks now he has noticed his heart rate to be fast every time he checks his blood pressure at home. Over the 3 weeks she's been progressively more and more short of breath, he's noticed a significant amount of peripheral edema. Yesterday he went to see Dr. Nguyễn in the office, it was noted that the patient was in a rapid atrial flutter and patient was advised to come to the emergency room for admission to the hospital. His EKG on presentation here showed atrial flutter, typical, with a rapid ventricular response, heart rate 150. Chest x-ray showed mild pulmonary fibrosis, interstitial pulmonary density increased as compared wi th prior exam. Blood pressure on arrival to the emergency room 136/90 with a heart rate of 150, afebrile. 93% on room air. Blood pressure this morning 102/70 with a heart rate of 103, 98% on 2 L of oxygen. His heart rate is fluctuating from 100 to 1:30 this morning. Currently on Cardizem drip at 15 mg per hour. Laboratory data was reviewed, white blood cell count 7.3, hemoglobin 13.1, platelet count 206. Pro time this morning 31.5 with an INR 3.2. Sodium 138, potassium 3.9, BUN 21, creatinine 0.7, magnesium 1.9. Troponin 0.012. TSH 1.9 free T4 1 0.37. At the time of my examination this morning, patient is sitting up in the chair, continues to feel quite short of breath and continues to have significant lower extremity edema. 10/05/2019 Patient was seen and examined this morning, he's no longer in atrial flutter, he is in atrial fibrillation this morning with a heart rate in the 80s. Echocardiogram with Doppler study revealed a ejection fraction of 40-45%. He diuresed well through the night last night. Blood pressure this morning 128/90, heart rate 1 teens, 94% on room air. INR today is 2.7, sodium 136, potassium 4.0, BUN 26, creatinine 0.8. Echocardiogram with Doppler study was performed which revealed an ejection fraction of 40-45%. 10/06/2019 Patient seen and examined this morning, continues to do well overall. Diuresed well through the night last night his weight is essentially unchanged this morning BUN today is 24 creatinine 0.8, blood pressure 100/60 with a heart rate in the 80s INR today is 2.3. He had a repeat chest x-ray this morning which did not show any evidence of congestive heart failure. 10/07/2019 Patient seen and examined this morning, blood pressure 108/58, heart rate in the 60s, 96% on room air. Pro time 20.8, INR 2.1, sodium 137, potassium 4.5, BUN 26, creatinine 0.8. Objective - Vital Signs Vital signs: Vital Signs Temp 97.2 F L 10/07/19 08:00 Pulse 68 10/07/19 11:44 Resp 18 10/07/19 08:00 BP 109/58 10/07/19 08:00 Pulse Ox 96 10/07/19 08:00 Intake & Output 10/06/19 10/07/19 10/07/19 18:59 06:59 18:59 Intake Total 720 240 240 Output Total 1250 700 300 Balance -530 -460 -60 Weight 116.8 kg Intake: Oral 720 240 240 Output: Urine 1250 700 300 - Exam PHYSICAL EXAMINATION: GENERAL: 74-year-old gentleman in no acute distress at the time of my examination HEENT: Head is atraumatic, normocephalic. Pupils equal, round. Sclera anicteric. Conjunctiva are clear. Mucous membranes of the mouth are moist. Neck is supple. There is elevated jugular venous pressure. No carotid bruit is heard. HEART EXAMINATION: S1 and S2 irregularly irregular a soft systolic murmur is heard CHEST EXAMINATION: Lungs reveal improvement, but continued diminished air entry to the bases bilaterally, rales heard bilaterally. ABDOMEN: Soft, obese, nontender. Bowel sounds are heard. No organomegaly noted. EXTREMITIES: 2+ peripheral pulses with trace evidence of peripheral edema and no calf tenderness noted. NEUROLOGIC patient is awake, alert and oriented 3 - Labs CBC & Chem 7: 10/03/19 17:02 10/07/19 06:28 Labs: Abnormal Lab Results - Last 24 Hours (Table) 10/07/19 10/07/19 Range/Units 06:28 06:28 PT 20.8 H (9.0-12.0) sec INR 2.1 H (<1.2) Carbon Dioxide 33 H (22-30) mmol/L BUN 26 H (9-20) mg/dL Glucose 107 H (74-99) mg/dL Assessment and Plan Plan: Assessment and plan #1 typical atrial flutter with rapid ventricular response, currently on Cardizem drip at 15 mg per hour #2 congestive heart failure, likely diastolic in nature, acute on chronic, most recent echocardiogram with Doppler study performed showed an ejection fraction of 50-55%. #3 known history of coronary artery disease with prior stenting in 2018 #4 recent TAVR, one month ago, for severe aortic stenosis #5 hypertension #6 hyperlipidemia #7 paroxysmal atrial fibrillation on Coumadin for anticoagulation #7 asthma and COPD Plan From cardiology's perspective, patient may be able to be discharged home from our standpoint, follow-up appointment with Dr. Nguyễn in the office post discharge. DNP note has been reviewed, I agree with a documented findings and plan of care. Patient was seen and examined.
[2019-10-07 12:29] VITALS: BP 113/60; PULSE 61
--- NOTE | 2019-10-07 14:06 | P.DS ---
Providers Date of admission: 10/03/19 18:54 Attending physician: Nila Carrero Consults: 10/03/19 18:55 Consult Physician Urgent Consulting Provider: Ajith Nguyễn Consult Reason/Comments: a flutter w rvr Do you want consulting provider notified?: Yes Primary care physician: [facility] Course: Patient admitted for atrial fibrillation with rapid and regular rate presently rate controlled patient is on Coumadin with INR of 2.1. Patient is medically stable and is being discharged today. Patient has history of reticulocyte stenosis, status post TAVR. Patient has mildly decreased ejection fraction of 40-45% not in acute heart failure exacerbation PHYSICAL EXAMINATION: GENERAL: The patient is alert and oriented x3, not in any acute distress. Well developed, well nourished. HEENT: Pupils are round and equally reacting to light. EOMI. No scleral icterus. No conjunctival pallor. Normocephalic, atraumatic. No pharyngeal erythema. No thyromegaly. CARDIOVASCULAR: S1 and S2 present. No murmurs, rubs, or gallops. PULMONARY: Chest is clear to auscultation, no wheezing or crackles. ABDOMEN: Soft, nontender, nondistended, normoactive bowel sounds. No palpable organomegaly. MUSCULOSKELETAL: No joint swelling or deformity. EXTREMITIES: No cyanosis, clubbing, or pedal edema. NEUROLOGICAL: Gross neurological examination did not reveal any focal deficits. SKIN: No rashes. -For rest of the chronic medical problems as position course please repeat the progress note from Dr. Carrero from yesterday Plan - Discharge Summary Discharge Rx Participant: Yes New Discharge Prescriptions: New Amiodarone [Cordarone] 200 mg PO TID #60 tab Digoxin [Lanoxin] 250 mcg PO DAILY #30 tab Metoprolol Succinate (ER) [Toprol XL] 75 mg PO DAILY #30 tab.er.24h Continue Montelukast [Singulair] 10 mg PO HS Tamsulosin [Flomax] 0.4 mg PO HS Spironolactone 25 mg PO HS cycloSPORINE [Restasis] 1 drop BOTH EYES BID Cholecalciferol [Vitamin D3 (25 Mcg = 1000 Iu)] 3,000 unit PO DAILY Loratadine [Claritin] 10 mg PO DAILY PRN PRN Reason: Allergy Symptoms Fluticasone Nasal [place] [Flonase Nasal [place]] 2 spr EA NOSTRIL BID Tiotropium 18 Mcg/Puff [Spiriva] 2 puff INHALATION RT-HS Budesonide-Formot 160-4.5 Mcg [Symbicort 160-4.5 Mcg Inhaler] 2 puff INHALATION RT-BID Atorvastatin [Lipitor] 40 mg PO HS Solifenacin Succinate [Vesicare] 5 mg PO QAM Cyclobenzaprine [Flexeril] 5 mg PO HS PRN PRN Reason: sleep Warfarin [Coumadin] 5 mg PO DAILY Docusate [Colace] 200 mg PO DAILY Nitroglycerin Sl Tabs [Nitrostat] 0.4 mg SUBLINGUAL Q5M PRN #25 tab PRN Reason: Chest Pain Furosemide [Lasix] 80 mg PO QAM Aspirin EC [Ecotrin Low Dose] 81 mg PO DAILY Docusate [Colace] 100 mg PO HS Allopurinol [Zyloprim] 300 mg PO DAILY Magnesium 250 mg PO BID Esomeprazole Magnesium [NexIUM] 40 mg PO DAILY Cyanocobalamin (Vitamin B-12) [Vitamin B-12] 2,500 mcg PO DAILY Potassium Chloride 10 meq PO BID Ferrous Sulfate [Iron (65 MG Elemental)] 325 mg PO DAILY Furosemide [Lasix] 40 mg PO HS Albuterol Inhaler [Ventolin Hfa Inhaler] 1 puff INHALATION RT-Q4H PRN PRN Reason: Shortness Of Breath Ascorbic Acid [Vitamin C] 1,000 mg PO DAILY Discontinued Metoprolol Succinate [Toprol XL] 25 mg PO HS Discharge Medication List Montelukast [Singulair] 10 mg PO HS 09/09/13 [History] Tamsulosin [Flomax] 0.4 mg PO HS 09/09/13 [History] Spironolactone 25 mg PO HS 04/03/14 [History] Cholecalciferol [Vitamin D3 (25 Mcg = 1000 Iu)] 3,000 unit PO DAILY 06/09/15 [History] cycloSPORINE [Restasis] 1 drop BOTH EYES BID 06/09/15 [History] Budesonide-Formot 160-4.5 Mcg [Symbicort 160-4.5 Mcg Inhaler] 2 puff INHALATION RT-BID 08/07/16 [History] Fluticasone Nasal [place] [Flonase Nasal [place]] 2 spr EA NOSTRIL BID 08/07/16 [History] Loratadine [Claritin] 10 mg PO DAILY PRN 08/07/16 [History] Tiotropium 18 Mcg/Puff [Spiriva] 2 puff INHALATION RT-HS 08/07/16 [History] Atorvastatin [Lipitor] 40 mg PO HS 05/02/17 [History] Cyclobenzaprine [Flexeril] 5 mg PO HS PRN 05/02/17 [History] Solifenacin Succinate [Vesicare] 5 mg PO QAM 05/02/17 [History] Docusate [Colace] 200 mg PO DAILY 06/04/17 [History] Warfarin [Coumadin] 5 mg PO DAILY 06/04/17 [History] Nitroglycerin Sl Tabs [Nitrostat] 0.4 mg SUBLINGUAL Q5M PRN #25 tab 06/07/17 [Rx] Furosemide [Lasix] 80 mg PO QAM 06/20/17 [History] Aspirin EC [Ecotrin Low Dose] 81 mg PO DAILY 09/12/17 [History] Allopurinol [Zyloprim] 300 mg PO DAILY 05/30/19 [History] Docusate [Colace] 100 mg PO HS 05/30/19 [History] Albuterol Inhaler [Ventolin Hfa Inhaler] 1 puff INHALATION RT-Q4H PRN 10/03/19 [History] Ascorbic Acid [Vitamin C] 1,000 mg PO DAILY 10/03/19 [History] Cyanocobalamin (Vitamin B-12) [Vitamin B-12] 2,500 mcg PO DAILY 10/03/19 [History] Esomeprazole Magnesium [NexIUM] 40 mg PO DAILY 10/03/19 [History] Ferrous Sulfate [Iron (65 MG Elemental)] 325 mg PO DAILY 10/03/19 [History] Furosemide [Lasix] 40 mg PO HS 10/03/19 [History] Magnesium 250 mg PO BID 10/03/19 [History] Potassium Chloride 10 meq PO BID 10/03/19 [History] Amiodarone [Cordarone] 200 mg PO TID #60 tab 10/07/19 [Rx] Digoxin [Lanoxin] 250 mcg PO DAILY #30 tab 10/07/19 [Rx] Metoprolol Succinate (ER) [Toprol XL] 75 mg PO DAILY #30 tab.er.24h 10/07/19 [Rx] Follow up Appointment(s)/Referral(s): Tino Rocha MD [STAFF PHYSICIAN] - 1 Week [facility]Clinic [Primary Care Provider] - 1-2 days (PR to notify patient for virtual appointment/ if you do not hear from them please call for appointment) Patient Instructions/Handouts: A-fib (Atrial Fibrillation) (DC), A-fib (Atrial Fibrillation) (GEN) Discharge Disposition: HOME SELF-CARE
[2019-10-07] MEDS ORDERED: WARFARIN 2 MG TAB PO ONE (18:00)
== END 2019-10-07 16:12 | disposition home or self-care (01) | DRG 308 ==
LOC: EC 16:40 → 3SCARD 18:54
PROVIDERS: ADMIT Hospitalist; ATTEND Hospitalist
DX: I48.3 Typical atrial flutter (principal); I50.23 Acute on chronic systolic (congestive) heart failure; J96.11 Chronic respiratory failure with hypoxia; I42.9 Cardiomyopathy, unspecified; I11.0 Hypertensive heart disease with heart failure; E11.51 Type 2 diabetes mellitus with diabetic peripheral angiopathy without gangrene; J84.10 Pulmonary fibrosis, unspecified; I48.0 Paroxysmal atrial fibrillation; J44.9 Chronic obstructive pulmonary disease, unspecified; I25.10 Atherosclerotic heart disease of native coronary artery without angina pectoris; K21.9 Gastro-esophageal reflux disease without esophagitis; H91.90 Unspecified hearing loss, unspecified ear; E78.5 Hyperlipidemia, unspecified; M19.90 Unspecified osteoarthritis, unspecified site; G47.30 Sleep apnea, unspecified; K44.9 Diaphragmatic hernia without obstruction or gangrene; E66.9 Obesity, unspecified; Z68.37 Body mass index [BMI] 37.0-37.9, adult; Z95.2 Presence of prosthetic heart valve; Z99.81 Dependence on supplemental oxygen; Z79.01 Long term (current) use of anticoagulants; Z79.82 Long term (current) use of aspirin; Z79.51 Long term (current) use of inhaled steroids; Z79.899 Other long term (current) drug therapy; Z87.442 Personal history of urinary calculi; Z90.49 Acquired absence of other specified parts of digestive tract; Z87.01 Personal history of pneumonia (recurrent); Z87.19 Personal history of other diseases of the digestive system; Z98.890 Other specified postprocedural states; Z95.5 Presence of coronary angioplasty implant and graft; Z90.89 Acquired absence of other organs; Z86.79 Personal history of other diseases of the circulatory system; Z98.42 Cataract extraction status, left eye; Z98.41 Cataract extraction status, right eye; Z87.891 Personal history of nicotine dependence; Z85.46 Personal history of malignant neoplasm of prostate; Z88.8 Allergy status to other drugs, medicaments and biological substances
CPT/HCPCS: 36415; 71045; 71046; 80048; 80053; 83735; 84439; 84443; 84481; 84484; 85025; 85610; 85730; 93005; 93306; 94640; 94760; 96365; 96366; 96376; 99291

== ENCOUNTER 2020-01-14 16:11 | Inpatient (IN) | payer OTHER, MEDICARE ==
[2020-01-14] MEDS ORDERED: DILTIAZEM DRIP BOLUS FROM BAG 1 MG SOLN IV ONE (16:36)
[2020-01-14] MEDS ORDERED: IPRATROPIUM-ALBUTEROL 3 ML NEB INHALATION STA (16:38)
--- NOTE | 2020-01-14 16:41 | ED ---
General Adult HPI - General Chief complaint: Arrhythmia/Palpitations Stated complaint: irregular heart beat Time Seen by Provider: 01/14/20 16:19 Source: patient, RN notes reviewed Mode of arrival: wheelchair Limitations: no limitations - History of Present Illness Initial comments: Patient is a pleasant 74-year-old male presenting to the emergency Department with high heart rate. Patient does regular check his heart rate at home and is been as high as 150. Patient does admit to having some exertional dyspnea. Patient also admits to having some leg swelling which is new for him. Patient does have history of atrial fibrillation and is on anticoagulation for this. No chest pain. No fever. Patient also has history of COPD with similar dyspnea previously. - Related Data Home Medications Medication Instructions Recorded Confirmed Montelukast [Singulair] 10 mg PO HS 09/09/13 10/03/19 Tamsulosin [Flomax] 0.4 mg PO HS 09/09/13 10/03/19 Spironolactone 25 mg PO HS 04/03/14 10/03/19 Cholecalciferol [Vitamin D3 (25 3,000 unit PO DAILY 06/09/15 10/03/19 Mcg = 1000 Iu)] cycloSPORINE [Restasis] 1 drop BOTH EYES BID 06/09/15 10/03/19 Budesonide-Formot 160-4.5 Mcg 2 puff INHALATION RT-BID 08/07/16 10/03/19 [Symbicort 160-4.5 Mcg Inhaler] Fluticasone Nasal [place] [Flonase 2 spr EA NOSTRIL BID 08/07/16 10/03/19 Nasal [place]] Loratadine [Claritin] 10 mg PO DAILY PRN 08/07/16 10/03/19 Tiotropium 18 Mcg/Puff [Spiriva] 2 puff INHALATION RT-HS 08/07/16 10/03/19 Atorvastatin [Lipitor] 40 mg PO HS 05/02/17 10/03/19 Cyclobenzaprine [Flexeril] 5 mg PO HS PRN 05/02/17 10/03/19 Solifenacin Succinate [Vesicare] 5 mg PO QAM 05/02/17 10/03/19 Docusate [Colace] 200 mg PO DAILY 06/04/17 10/03/19 Warfarin [Coumadin] 5 mg PO DAILY 06/04/17 10/03/19 Furosemide [Lasix] 80 mg PO QAM 06/20/17 10/03/19 Aspirin EC [Ecotrin Low Dose] 81 mg PO DAILY 09/12/17 10/03/19 Docusate [Colace] 100 mg PO HS 05/30/19 10/03/19 allopurinoL [Zyloprim] 300 mg PO DAILY 05/30/19 10/03/19 Albuterol Inhaler [Ventolin Hfa 1 puff INHALATION RT-Q4H PRN 10/03/19 10/03/19 Inhaler] Ascorbic Acid [Vitamin C] 1,000 mg PO DAILY 10/03/19 10/03/19 Cyanocobalamin (Vitamin B-12) 2,500 mcg PO DAILY 10/03/19 10/03/19 [Vitamin B-12] Esomeprazole Magnesium [NexIUM] 40 mg PO DAILY 10/03/19 10/03/19 Ferrous Sulfate [Iron (65 MG 325 mg PO DAILY 10/03/19 10/03/19 Elemental)] Furosemide [Lasix] 40 mg PO HS 10/03/19 10/03/19 Magnesium 250 mg PO BID 10/03/19 10/03/19 Potassium Chloride 10 meq PO BID 10/03/19 10/03/19 Previous Rx's Medication Instructions Recorded Nitroglycerin Sl Tabs [Nitrostat] 0.4 mg SUBLINGUAL Q5M PRN #25 tab 06/07/17 Amiodarone [Cordarone] 200 mg PO DAILY 15 Days #45 tab 10/07/19 Amiodarone [Cordarone] 200 mg PO TID #60 tab 10/07/19 Digoxin 250 mcg PO DAILY #14 tablet 10/07/19 Digoxin [Lanoxin] 250 mcg PO DAILY #30 tab 10/07/19 Metoprolol Succinate (ER) [Toprol 75 mg PO DAILY #30 tab.er.24h 10/07/19 XL] Metoprolol Succinate (ER) [Toprol 75 mg PO DAILY 14 Days #42 tab 10/07/19 Xl] Allergies Allergy/AdvReac Type Severity Reaction Status Date / Time Ofxfiny-Axb-Nfi Reductase Allergy Mild Rash/Hives Verified 01/14/20 16:18 Inhibitor Review of Systems ROS Statement: Those systems with pertinent positive or pertinent negative responses have been documented in the HPI. ROS Other: All systems not noted in ROS Statement are negative. Constitutional: Denies: fever Eyes: Denies: eye pain ENT: Denies: ear pain Respiratory: Reports: dyspnea Cardiovascular: Denies: chest pain, palpitations Endocrine: Reports: fatigue Gastrointestinal: Denies: abdominal pain Genitourinary: Denies: dysuria Musculoskeletal: Denies: back pain Skin: Denies: rash Neurological: Denies: weakness Past Medical History Past Medical History: Atrial Fibrillation, Asthma, Coronary Artery Disease (CAD) , Cancer, COPD, Diabetes Mellitus, GERD/Reflux, Hearing Disorder / Deafness, Hyperlipidemia, Hypertension, Osteoarthritis (OA), Pneumonia, Prostate Disorder, Sleep Apnea/CPAP/BIPAP, Vascular Disorder Additional Past Medical History / Comment(s): Prostate cancer. see Dr Rosi howard H&P FOR CARDIAC HISTORY , O2 2L PRN AND AT BEDTIME , hiatal hernia, kidney stones, "bad back", past a fib cardiomyopathy aortic stenosis, PRE- DIABETIC -DIET CONTROLLED, aortic valve replacment 09/03 History of Any Multi-Drug Resistant Organisms: None Reported Past Surgical History: Ablation, Bladder Surgery, Cholecystectomy, Heart Catheterization With Stent, Hernia Repair, Tonsillectomy Additional Past Surgical History / Comment(s): CARDIOVERSION, MUKESH FEMORAL BYPASS SURGERY, MUKESH.inguinal hernia, UMBILICAL HERNIA REPAIR, surgery for PILONIDAL CYST, mukesh CATARACTS, ARCH/AORTOGRAM, cystoscopy for KIDNEY STONE REMOVAL x 3, LT CAROTID ENDARTECTOMY. BRAYDEN 05/10/17, 06/06, 06/04/19, 2 stents to the RCA Past Anesthesia/Blood Transfusion Reactions: No Reported Reaction Date of Last Stent Placement:: 06/06/18 Past Psychological History: No Psychological Hx Reported Smoking Status: Former smoker Past Alcohol Use History: Daily Past Drug Use History: None Reported - Past Family History Father Family Medical History: Liver Disease Mother Family Medical History: No Reported History Additional Family Medical History / Comment(s): . General Exam Limitations: no limitations General appearance: alert, in no apparent distress Head exam: Present: normocephalic Eye exam: Present: normal appearance Neck exam: Present: normal inspection Respiratory exam: Present: wheezes Cardiovascular Exam: Present: tachycardia, irregular rhythm, normal heart sounds Expanded Peripheral pulses: 2+: Radial (R), Radial (L) GI/Abdominal exam: Present: soft. Absent: tenderness Extremities exam: Present: pedal edema (+2 bilateral). Absent: calf tenderness Back exam: Present: normal inspection Neurological exam: Present: alert Psychiatric exam: Present: normal affect, normal mood Skin exam: Present: normal color Course Vital Signs 01/14/20 01/14/20 01/14/20 16:12 17:05 17:10 Temperature 98.9 F Pulse Rate 149 H 133 H Pulse Rate [ 134 H [employer] ] Respiratory 22 18 Rate Blood Pressure 158/84 O2 Sat by Pulse 93 L 97 Oximetry 01/14/20 01/14/20 17:36 17:43 Temperature Pulse Rate 134 H 135 H Pulse Rate [ [employer] ] Respiratory 18 18 Rate Blood Pressure O2 Sat by Pulse Oximetry EKG Findings - EKG Comments: EKG Findings:: EKG shows a flutter with a 2-1 conduction rate 134. QRS 90. QT 310. QTc 462. Normal axis. Normal QRS. Inferior T wave inversion. Medical Decision Making - Medical Decision Making Patient reevaluated and updated. Heart rate 135. Dr. Lucio has been paged for admission for this in pr patient. - Lab Data Result diagrams: 01/14/20 16:57 01/14/20 16:57 Lab Results 01/14/20 01/14/20 01/14/20 Range/Units 16:57 16:57 16:57 WBC 7.5 (3.8-10.6) k/uL RBC 4.42 (4.30-5.90) m/uL Hgb 14.1 (13.0-17.5) gm/dL Hct 44.2 (39.0-53.0) % MCV 100.0 (80.0-100.0) fL MCH 31.8 (25.0-35.0) pg MCHC 31.8 (31.0-37.0) g/dL RDW 16.7 H (11.5-15.5) % Plt Count 217 (150-450) k/uL Neutrophils % 68 % Lymphocytes % 19 % Monocytes % 8 % Eosinophils % 3 % Basophils % 0 % Neutrophils # 5.1 (1.3-7.7) k/uL Lymphocytes # 1.4 (1.0-4.8) k/uL Monocytes # 0.6 (0-1.0) k/uL Eosinophils # 0.2 (0-0.7) k/uL Basophils # 0.0 (0-0.2) k/uL Anisocytosis Slight Macrocytosis Slight PT 18.2 H (9.0-12.0) sec INR 1.9 H (<1.2) APTT 27.8 (22.0-30.0) sec Sodium 140 (137-145) mmol/L Potassium 4.2 (3.5-5.1) mmol/L Chloride 101 (98-107) mmol/L Carbon Dioxide 34 H (22-30) mmol/L Anion Gap 5 mmol/L BUN 15 (9-20) mg/dL Creatinine 0.74 (0.66-1.25) mg/dL Est GFR (CKD-EPI)AfAm >90 (>60 ml/min/1.73 sqM) Est GFR (CKD-EPI)NonAf >90 (>60 ml/min/1.73 sqM) Glucose 110 H (74-99) mg/dL Calcium 8.9 (8.4-10.2) mg/dL Magnesium 1.9 (1.6-2.3) mg/dL Total Bilirubin 0.8 (0.2-1.3) mg/dL AST 29 (17-59) U/L ALT 23 (4-49) U/L Alkaline Phosphatase 75 (38-126) U/L Troponin I (0.000-0.034) ng/mL NT-Pro-B Natriuret Pep pg/mL Total Protein 6.8 (6.3-8.2) g/dL Albumin 4.0 (3.5-5.0) g/dL Digoxin <0.4 ng/mL 01/14/20 01/14/20 Range/Units 16:57 16:57 WBC (3.8-10.6) k/uL RBC (4.30-5.90) m/uL Hgb (13.0-17.5) gm/dL Hct (39.0-53.0) % MCV (80.0-100.0) fL MCH (25.0-35.0) pg MCHC (31.0-37.0) g/dL RDW (11.5-15.5) % Plt Count (150-450) k/uL Neutrophils % % Lymphocytes % % Monocytes % % Eosinophils % % Basophils % % Neutrophils # (1.3-7.7) k/uL Lymphocytes # (1.0-4.8) k/uL Monocytes # (0-1.0) k/uL Eosinophils # (0-0.7) k/uL Basophils # (0-0.2) k/uL Anisocytosis Macrocytosis PT (9.0-12.0) sec INR (<1.2) APTT (22.0-30.0) sec Sodium (137-145) mmol/L Potassium (3.5-5.1) mmol/L Chloride (98-107) mmol/L Carbon Dioxide (22-30) mmol/L Anion Gap mmol/L BUN (9-20) mg/dL Creatinine (0.66-1.25) mg/dL Est GFR (CKD-EPI)AfAm (>60 ml/min/1.73 sqM) Est GFR (CKD-EPI)NonAf (>60 ml/min/1.73 sqM) Glucose (74-99) mg/dL Calcium (8.4-10.2) mg/dL Magnesium (1.6-2.3) mg/dL Total Bilirubin (0.2-1.3) mg/dL AST (17-59) U/L ALT (4-49) U/L Alkaline Phosphatase (38-126) U/L Troponin I 0.020 (0.000-0.034) ng/mL NT-Pro-B Natriuret Pep 1810 pg/mL Total Protein (6.3-8.2) g/dL Albumin (3.5-5.0) g/dL Digoxin ng/mL - Radiology Data Radiology results: image reviewed (Chest x-ray does show some mild central pulm onary vascular congestion.) Critical Care Time Critical Care Time: Yes Total Critical Care Time: 32 Disposition Clinical Impression: Atrial flutter with rapid ventricular response Disposition: ADMITTED IP TO THIS HOSP Is patient prescribed a controlled substance at d/c from ED?: No Referrals: [facility],Clinic [Primary Care Provider] - 1-2 days Decision Time: 17:59
[2020-01-14] MEDS ORDERED: DILTIAZEM 125 MG in SODIUM CHLORIDE 0.9% 100 ML IV SCH (16:45)
[2020-01-14 17:03] LABS: Anisocytosis Slight; Basophils % (A) 0 %; Eosinophils % (A) 3 %; HCT 44.2 % (39.0-53.0); HGB 14.1 gm/dL (13.0-17.5); Lymphocytes % (A) 19 %; MCH 31.8 pg (25.0-35.0); MCHC 31.8 g/dL (31.0-37.0); Macrocytosis Slight; Mean Platelet Volume 7.5; Monocytes % (A) 8 %; Neutrophils # (A) 5.1 k/uL (1.3-7.7); Neutrophils % (A) 68 %; Platelet Count 217 k/uL (150-450); RBC 4.42 m/uL (4.30-5.90); RDW 16.7 % (11.5-15.5); WBC 7.5 k/uL (3.8-10.6)
[2020-01-14 17:04] LABS: Eosinophils # (A) 0.2 k/uL (0-0.7); Lymphocytes # (A) 1.4 k/uL (1.0-4.8); Monocytes # (A) 0.6 k/uL (0-1.0)
[2020-01-14 17:15] LABS: ALT 23 U/L (4-49); AST 29 U/L (17-59); African American GFR (CKD) >90 (>60 ml/min/1.73 sqM); Alkaline Phosphatase 75 U/L (38-126); Anion Gap 5 mmol/L; Blood Urea Nitrogen 15 mg/dL (9-20); Calcium 8.9 mg/dL (8.4-10.2); Carbon Dioxide 34 mmol/L (22-30); Chloride 101 mmol/L (98-107); Digoxin <0.4 ng/mL; Glucose 110 mg/dL (74-99); Magnesium 1.9 mg/dL (1.6-2.3); Non-African American GFR(CKD) >90 (>60 ml/min/1.73 sqM); Potassium 4.2 mmol/L (3.5-5.1); Sodium 140 mmol/L (137-145); Total Bilirubin 0.8 mg/dL (0.2-1.3); Total Protein 6.8 g/dL (6.3-8.2)
[2020-01-14 17:18] LABS: INR 1.9 (<1.2); Partial Thromboplastin Time 27.8 sec (22.0-30.0); Prothrombin Time 18.2 sec (9.0-12.0)
--- NOTE | 2020-01-14 17:36 | XR ---
EXAMINATION TYPE: XR chest 2V DATE OF EXAM: 01/14/2020 CLINICAL HISTORY: Dysrhythmia. Irregular heartbeat. TECHNIQUE: Frontal and lateral views of the chest are obtained. COMPARISON: 11/24/2019 chest radiograph FINDINGS: Aortic stent redemonstrated. The cardiomediastinal silhouette is unchanged. Pulmonary vasc ulature is mildly congested. Persistent bibasilar airspace opacities. There is no new focal air space opacity, pleural effusion, or pneumothorax seen. Large hiatal hernia. The osseous structures are int act. IMPRESSION: Mild central pulmonary vascular congestion.
[2020-01-14] MEDS ORDERED: NALOXONE 0.4 MG/ML 1 ML VIAL IV PRN (18:00)
[2020-01-14] MEDS ORDERED: FUROSEMIDE 10 MG/ML 4 ML VIAL IV STA (18:08)
[2020-01-14] MEDS: SPIRONOLACTONE 25 MG TAB PO SCH (23:31)
[2020-01-14] MEDS: MONTELUKAST 10 MG TAB PO SCH (23:31)
[2020-01-14] MEDS: TAMSULOSIN 0.4 MG CAP.ER.24H PO SCH (23:31)
[2020-01-14] MEDS: FAMOTIDINE 20 MG TAB PO SCH (23:31)
[2020-01-14] MEDS: AMIODARONE 200 MG TAB PO SCH (23:31)
[2020-01-14] MEDS: CYCLOBENZAPRINE 5 MG TAB PO PRN (23:31)
[2020-01-14] MEDS: ATORVASTATIN 80 MG TAB PO SCH (23:31)
[2020-01-15] MEDS ORDERED: LORATADINE 10 MG TAB PO PRN (07:51)
[2020-01-15] MEDS ORDERED: NITROGLYCERIN SL TABS 0.4 MG TAB SUBLINGUAL PRN (07:51)
[2020-01-15] MEDS ORDERED: ALBUTEROL NEBULIZED 2.5 MG/3 ML INHALATION PRN (07:51)
--- NOTE | 2020-01-15 08:43 | P.HPIM ---
History of Present Illness 74-year-old pleasant male with known history of atrial fibrillation came in after he found his pulse is rapid on the BP machine that he had at home. Patient is found to be in atrial fibrillation with rapid ventricular rate patient is comparing of fatigue denied any significant shortness of breath patient although has increasing or worsening pedal edema patient had an EF of around 40-45% in the past. Patient is on Lasix at home. Patient was started on Cardizem which will be discontinued and patient will be started on metoprolol or Toprol-XL patient usually takes 50 mg at home I'll increase 200 mg. Patient had cut down his Toprol-XL from secondary to because of his low blood pressure at home. Patient is on Coumadin does have mitral valve patient INR is subtherapeutic at 1.9 target INR is 2.5-3.5. Patient denied any fever chills nausea vomiting dysuria. Patient and 40 3 times a day of Lasix Review of Systems REVIEW OF SYSTEMS: CONSTITUTIONAL: As mentioned in HPI HEENT: No recent visual problems or hearing problems. Denied any sore throat. CARDIOVASCULAR: No chest pain, orthopnea, PND, no palpitations, no syncope. PULMONARY: No shortness of breath, no cough, no hemoptysis. GASTROINTESTINAL: No diarrhea, no nausea, no vomiting, no abdominal pain. NEUROLOGICAL: No headaches, no weakness, no numbness. HEMATOLOGICAL: Denies any bleeding or petechiae. GENITOURINARY: Denies any burning micturition, frequency, or urgency. MUSCULOSKELETAL/RHEUMATOLOGICAL: Denies any joint pain, swelling, or any muscle pain. ENDOCRINE: Denies any polyuria or polydipsia. The rest of the 14-point review of systems is negative. Past Medical History Past Medical History: Atrial Fibrillation, Asthma, Coronary Artery Disease (CAD), Cancer, COPD, Diabetes Mellitus, GERD/Reflux, Hearing Disorder / Deafness, Hyperlipidemia, Hypertension, Osteoarthritis (OA), Pneumonia, Prostate Disorder, Sleep Apnea/CPAP/BIPAP, Vascular Disorder Additional Past Medical History / Comment(s): Prostate cancer. see Dr Nguyễn H&P FOR CARDIAC HISTORY , O2 2L PRN AND AT BEDTIME , hiatal hernia, kidney stones, "bad back", past a fib cardiomyopathy aortic stenosis, PRE- DIABETIC -DIET CONTROLLED, aortic valve replacment 09/03 History of Any Multi-Drug Resistant Organisms: None Reported Past Surgical History: Ablation, Bladder Surgery, Cholecystectomy, Heart Catheterization With Stent, Hernia Repair, Tonsillectomy Additional Past Surgical History / Comment(s): CARDIOVERSION, MUKESH FEMORAL BYPASS SURGERY, MUKESH.inguinal hernia, UMBILICAL HERNIA REPAIR, surgery for PILONIDAL CYST, mukesh CATARACTS, ARCH/AORTOGRAM, cystoscopy for KIDNEY STONE REMOVAL x 3, LT CAROTID ENDARTECTOMY. BRAYDEN 05/10/17, 06/06, 06/04/19, 2 stents to the RCA Past Anesthesia/Blood Transfusion Reactions: No Reported Reaction Date of Last Stent Placement:: 06/06/18 Past Psychological History: No Psychological Hx Reported Smoking Status: Former smoker Past Alcohol Use History: Daily Additional Past Alcohol Use History / Comment(s): QUIT SMOKING 1991, SMOKED SINCE AGE 17(1961). SMOKED 1-3 PPD DRINKS 1-2 BEER A DAY Past Drug Use History: None Reported - Past Family History Father Family Medical History: Liver Disease Mother Family Medical History: No Reported History Additional Family Medical History / Comment(s): . Medications and Allergies Home Medications Medication Instructions Recorded Confirmed Type Montelukast [Singulair] 10 mg PO HS 09/09/13 01/14/20 History Tamsulosin [Flomax] 0.4 mg PO HS 09/09/13 01/14/20 History Spironolactone 25 mg PO HS 04/03/14 01/14/20 History Cholecalciferol [Vitamin D3 (25 3,000 unit PO DAILY 06/09/15 01/14/20 History Mcg = 1000 Iu)] Budesonide-Formot 160-4.5 Mcg 2 puff INHALATION RT-BID 08/07/16 01/14/20 History [Symbicort 160-4.5 Mcg Inhaler] Fluticasone Nasal [place] [Flonase 2 spr EA NOSTRIL BID 08/07/16 01/14/20 History Nasal [place]] Loratadine [Claritin] 10 mg PO DAILY PRN 08/07/16 01/14/20 History Tiotropium 18 Mcg/Puff [Spiriva] 2 puff INHALATION RT-HS 08/07/16 01/14/20 History Atorvastatin [Lipitor] 40 mg PO HS 05/02/17 01/14/20 History Cyclobenzaprine [Flexeril] 5 mg PO HS PRN 05/02/17 01/14/20 History Solifenacin Succinate [Vesicare] 5 mg PO QAM 05/02/17 01/14/20 History Warfarin [Coumadin] 5 mg PO TUTH 06/04/17 01/14/20 History Nitroglycerin Sl Tabs [Nitrostat] 0.4 mg SUBLINGUAL Q5M PRN #25 tab 06/07/17 01/14/20 Rx Aspirin EC [Ecotrin Low Dose] 81 mg PO DAILY 09/12/17 01/14/20 History Docusate [Colace] 100 mg PO TID 05/30/19 01/14/20 History allopurinoL [Zyloprim] 300 mg PO DAILY 05/30/19 01/14/20 History Albuterol Inhaler [Ventolin Hfa 1 puff INHALATION RT-Q4H PRN 10/03/19 01/14/20 History Inhaler] Ascorbic Acid [Vitamin C] 1,000 mg PO DAILY 10/03/19 01/14/20 History Cyanocobalamin (Vitamin B-12) 2,500 mcg PO DAILY 10/03/19 01/14/20 History [Vitamin B-12] Esomeprazole Magnesium [NexIUM] 40 mg PO DAILY 10/03/19 01/14/20 History Ferrous Sulfate [Iron (65 MG 325 mg PO DAILY 10/03/19 01/14/20 History Elemental)] Furosemide [Lasix] 40 mg PO TID 10/03/19 01/14/20 History Magnesium 250 mg PO BID 10/03/19 01/14/20 History Potassium Chloride 10 meq PO BID 10/03/19 01/14/20 History Amiodarone [Cordarone] 200 mg PO TID #60 tab 10/07/19 01/14/20 Rx Metoprolol Succinate (ER) [Toprol 75 mg PO DAILY 14 Days #42 tab 10/07/19 01/14/20 Rx Xl] Warfarin Sodium 2.5 mg PO SUMOWEFRSA 01/14/20 01/14/20 History Allergies Allergy/AdvReac Type Severity Reaction Status Date / Time Bnemrpt-Ysn-Yxh Reductase Allergy Mild Rash/Hives Verified 01/14/20 18:44 Inhibitor Physical Exam Vitals: Vital Signs Temp Pulse Pulse Resp BP BP Pulse Ox 01/15/20 04:49 97.8 F 82 20 102/58 95 10/08/20 01:04 98.0 F 111 H 18 100/59 91 L 01/14/20 20:00 98.2 F 128 H 18 115/60 91 L 01/14/20 17:43 135 H 18 01/14/20 17:36 134 H 18 01/14/20 17:10 133 H 18 97 01/14/20 17:05 134 H 01/14/20 16:12 98.9 F 149 H 22 158/84 93 L Intake and Output 01/14/20 01/15/20 01/15/20 22:59 06:59 14:59 Intake Total 8.750 91.25 236 Balance 8.750 91.25 236 Intake: Intake, IV Titration 8.750 91.25 Amount Diltiazem 125 mg In 8.750 91.25 Sodium Chloride 0.9% 100 ml @ 5 MG/HR 5 mls/hr IV .Q24H [facility] Rx#:[id number] Oral 236 Other: # Voids 1 Weight 115.212 kg 116.3 kg PHYSICAL EXAMINATION: GENERAL: The patient is alert and oriented x3, not in any acute distress. Well d eveloped, well nourished. HEENT: Pupils are round and equally reacting to light. EOMI. No scleral icterus. No conjunctival pallor. Normocephalic, atraumatic. No pharyngeal erythema. No thyromegaly. CARDIOVASCULAR: S1 and S2 present. No murmurs, rubs, or gallops. Tachycardic irregularly irregular rhythm PULMONARY: Chest is clear to auscultation, no wheezing or crackles. ABDOMEN: Soft, nontender, nondistended, normoactive bowel sounds. No palpable organomegaly. MUSCULOSKELETAL: No joint swelling or deformity. EXTREMITIES: No cyanosis, clubbing, does have 1-2+ pitting pedal edema NEUROLOGICAL: Gross neurological examination did not reveal any focal deficits. SKIN: No rashes. Results CBC & Chem 7: 01/14/20 16:57 01/14/20 16:57 Labs: Abnormal Lab Results - Last 24 Hours (Table) 01/14/20 01/14/20 01/14/20 Range/Units 16:57 16:57 16:57 RDW 16.7 H (11.5-15.5) % PT 18.2 H (9.0-12.0) sec INR 1.9 H (<1.2) Carbon Dioxide 34 H (22-30) mmol/L Glucose 110 H (74-99) mg/dL Thrombosis Risk Factor Assmnt - Choose All That Apply Each Factor Represents 1 point: Abnormal pulmonary function (COPD), Obesity (BMI >25) Each Risk Factor Represents 2 Points: Age 61-74 years Other congenital or acquired thrombophilia - If yes, enter type in comment: No Thrombosis Risk Factor Assessment Total Risk Factor Score: 4 Thrombosis Risk Factor Assessment Level: Moderate Risk Assessment and Plan Plan: -Atrial fibrillation with rapid ventricular rate: Cardizem will discuss reviewed patient metoprolol dose will be increased and will be monitored patient heart rate did come down to 120 now cardiology will evaluate the patient. Patient will be resumed on anticoagulation will increase the dose of his Coumadin to 5 mg daily repeat INR tomorrow -Can start failure chronic systolic dysfunction with acute exacerbation this exacerbation is probably precipitated by atrial fibrillation. -COPD without any acute exacerbation -Gastroesophageal reflux disease -Hyperlipidemia -hypertension -benign prostatic hypertrophy -Sleep apnea -Peripheral vascular disease
[2020-01-15] MEDS: FERROUS SULFATE 325 MG TAB PO SCH (08:56)
[2020-01-15] MEDS: METOPROLOL SUCCINATE (ER) 100 MG TAB.ER.24H PO SCH (08:56)
[2020-01-15] MEDS: ASPIRIN 81 MG PO SCH (08:56)
[2020-01-15] MEDS: FAMOTIDINE 20 MG TAB PO SCH ×2 (08:56→20:46)
[2020-01-15] MEDS: MAGNESIUM OXIDE 400 MG TAB PO SCH (08:57)
[2020-01-15] MEDS: AMIODARONE 200 MG TAB PO SCH ×3 (08:58→20:46)
[2020-01-15] MEDS: POTASSIUM CHLORIDE ER 10 MEQ TAB.ER.PRT PO SCH ×2 (08:58→20:46)
[2020-01-15] MEDS: allopurinoL 300 MG TAB PO SCH (08:58)
[2020-01-15] MEDS: DOCUSATE 100 MG CAP PO SCH ×3 (08:58→20:46)
[2020-01-15] MEDS ORDERED: FUROSEMIDE 10 MG/ML 4 ML VIAL IV SCH (09:00)
[2020-01-15] MEDS: IPRATROPIUM 0.5 MG/2.5 ML NEBU INHALATION SCH ×4 (09:22→19:06)
[2020-01-15] MEDS: SYMBICORT 160-4.5 MCG INHALER INHALATION SCH ×2 (09:27→19:06)
[2020-01-15] MEDS: PANTOPRAZOLE 40 MG TABLET PO SCH (10:54)
[2020-01-15 11:36] LABS: African American GFR (CKD) >90 (>60 ml/min/1.73 sqM); Anion Gap 6 mmol/L; Blood Urea Nitrogen 17 mg/dL (9-20); Calcium 9.3 mg/dL (8.4-10.2); Carbon Dioxide 37 mmol/L (22-30); Chloride 97 mmol/L (98-107); Glucose 103 mg/dL (74-99); Non-African American GFR(CKD) 89 (>60 ml/min/1.73 sqM); Potassium 3.9 mmol/L (3.5-5.1); Sodium 140 mmol/L (137-145)
[2020-01-15 12:21] LABS: INR 1.6 (<1.2)
[2020-01-15] MEDS: FLUTICASONE 50MCG/SPRAY NASAL 16GM EA NOSTRIL SCH ×2 (13:32→20:45)
[2020-01-15] MEDS: lisinopriL 5 MG TAB PO SCH (13:32)
[2020-01-15] MEDS: cycloSPORINE 0.05% OPHTH 0.4 ML DROPERETTE BOTH EYES SCH ×2 (13:32→20:47)
[2020-01-15] MEDS: TROSPIUM CHLORIDE 20 MG TABLET PO SCH (13:33)
--- NOTE | 2020-01-15 14:08 | P.CRDCN ---
History of Present Illness Consult date: 01/15/20 History of present illness: CHIEF COMPLAINT: A flutter with RVR HISTORY OF PRESENT ILLNESS: This is a 74-year old male with a past medical history significant for atrial fibrillation/flutter, coronary artery disease, COPD, diabetes mellitus, hypertension, and hyperlipidemia. Patient follows in the office with Dr. Nguyễn. We have been asked to see the patient in consultation for a-flutter with RVR. Patient examined this morning at bedside. Patient reports he has been feeling short of breath for the past 2-3 days. He reports feeling occasional palpitations. He reports increased swelling to his lower extremities. Patient currently denies chest pain or pressure. He reports he decreased his beta faustino from 75 mg to 50 mg about a month ago secondary to low blood pressure. Patient underwent a cardiac catheterization in May 2019 revealing stable coronary artery disease with a patent stent to the RCA. Pravin dykes also underwent TAVR in August 2019 at [facility] DIAGNOSTICS: EKG reveals a flutter with RVR Chest xray mild pulmonary congestion Laboratory data: WBC 7.5. Hemoglobin 14.1. Platelet count 217. INR 1.9. Sodium 140. Potassium 4.2. BUN 15. Creatinine 0.74. Troponin 0.020. BNP 1810. Current home cardiac medications include Coumadin, spironolactone 25 mg daily, T oprol-XL 50 mg daily, Lasix 40 mg 3 times a day, Lipitor 40 mg daily, amiodarone 200 mg 3 times a day REVIEW OF SYSTEMS: At the time of my exam: CONSTITUTIONAL: Denies fever or chills. HEENT: Denies blurred vision, vision changes, or eye pain. Denies hemoptysis CARDIOVASCULAR: Denies chest pain, orthopnea, PND or palpitations RESPIRATORY: No shortness of breath. GASTROINTESTINAL: Denies abdominal pain. Denies nausea or vomiting. HEMATOLOGIC: Denies bleeding disorders. GENITOURINARY: Denies any blood in urine. SKIN: Denies pruitis. Denies rash. PHYSICAL EXAM: VITAL SIGNS: Reviewed. GENERAL: Well-developed in no acute distress. HEENT: Head is normocephalic. Pupils are equal, round. Sclerae anicteric. Mucous membranes of the mouth are moist. Neck supple. No JVD or thyromegaly LUNGS: Respirations even and unlabored. Lungs with bilateral rales noted. HEART: Regular rate and rhythm. S1 and S2 heard. ABDOMEN: Soft. Nondistended. Nontender. EXTREMITIES: Normal range of motion. No clubbing or cyanosis. Peripheral pulses intact. 2+ lower extremity edema NEUROLOGIC: Awake and alert. Oriented x 3. ASSESSMENT: Typical atrial flutter with RVR Acute exacerbation of systolic congestive heart failure, EF 40-45% History of coronary artery disease with previous PCI History of aortic stenosis, status post TAVR Hypertension Hyperlipidemia COPD Diabetes mellitus, type II Obesity BMI 36.3 PLAN: Patient's metoprolol has been increased to 100 mg daily per medicine. Continue to monitor patient's heart rate Discontinue IV Cardizem drip Continue Coumadin. Monitor INR Increase lasix to 60mg IV Q8 hours Monitor kidney function Accurate I&O Daily weights Patient is prescribed amiodarone on outpatient basis but states he never got his prescription filled. Recommend continuing amiodarone at this time. Patient agreeable Further recommendations pending patient course Nurse practitioner note has been reviewed by physician. Signing provider agrees with the documented findings, assessment, and plan of care. Past Medical History Past Medical History: Atrial Fibrillation, Asthma, Coronary Artery Disease (CAD), Cancer, COPD, Diabetes Mellitus, GERD/Reflux, Hearing Disorder / Deafness, Hyperlipidemia, Hypertension, Osteoarthritis (OA), Pneumonia, Prostate Disorder, Sleep Apnea/CPAP/BIPAP, Vascular Disorder Additional Past Medical History / Comment(s): Prostate cancer. see Dr Nguyễn H&P FOR CARDIAC HISTORY , O2 2L PRN AND AT BEDTIME , hiatal hernia, kidney stones, "bad back", past a fib cardiomyopathy aortic stenosis, PRE- DIABETIC -DIET CONTROLLED, aortic valve replacment 09/03 History of Any Multi-Drug Resistant Organisms: None Reported Past Surgical History: Ablation, Bladder Surgery, Cholecystectomy, Heart Catheterization With Stent, Hernia Repair, Tonsillectomy Additional Past Surgical History / Comment(s): CARDIOVERSION, MUKESH FEMORAL BYPASS SURGERY, MUKESH.inguinal hernia, UMBILICAL HERNIA REPAIR, surgery for PILONIDAL CYST, mukesh CATARACTS, ARCH/AORTOGRAM, cystoscopy for KIDNEY STONE REMOVAL x 3, LT CAROTID ENDARTECTOMY. BRAYDEN 05/10/17, 06/06, 06/04/19, 2 stents to the RCA Past Anesthesia/Blood Transfusion Reactions: No Reported Reaction Date of Last Stent Placement:: 06/06/18 Past Psychological History: No Psychological Hx Reported Smoking Status: Former smoker Past Alcohol Use History: Daily Additional Past Alcohol Use History / Comment(s): QUIT SMOKING 1991, SMOKED SINCE AGE 17(1960). SMOKED 1-3 PPD DRINKS 1-2 BEER A DAY Past Drug Use History: None Reported - Past Family History Father Family Medical History: Liver Disease Mother Family Medical History: No Reported History Additional Family Medical History / Comment(s): . Medications and Allergies Home Medications Medication Instructions Recorded Confirmed Type Montelukast [Singulair] 10 mg PO HS 09/09/13 01/14/20 History Tamsulosin [Flomax] 0.4 mg PO HS 09/09/13 01/14/20 History Spironolactone 25 mg PO HS 04/03/14 01/14/20 History Cholecalciferol [Vitamin D3 (25 3,000 unit PO DAILY 06/09/15 01/14/20 History Mcg = 1000 Iu)] Budesonide-Formot 160-4.5 Mcg 2 puff INHALATION RT-BID 08/07/16 01/14/20 History [Symbicort 160-4.5 Mcg Inhaler] Fluticasone Nasal [place] [Flonase 2 spr EA NOSTRIL BID 08/07/16 01/14/20 History Nasal [place]] Loratadine [Claritin] 10 mg PO DAILY PRN 08/07/16 01/14/20 History Tiotropium 18 Mcg/Puff [Spiriva] 2 puff INHALATION RT-HS 08/07/16 01/14/20 H istory Atorvastatin [Lipitor] 40 mg PO HS 05/02/17 01/14/20 History Cyclobenzaprine [Flexeril] 5 mg PO HS PRN 05/02/17 01/14/20 History Solifenacin Succinate [Vesicare] 5 mg PO QAM 05/02/17 01/14/20 History Warfarin [Coumadin] 5 mg PO TUTH 06/04/17 01/14/20 History Nitroglycerin Sl Tabs [Nitrostat] 0.4 mg SUBLINGUAL Q5M PRN #25 tab 06/07/17 01/14/20 Rx Aspirin EC [Ecotrin Low Dose] 81 mg PO DAILY 09/12/17 01/14/20 History Docusate [Colace] 100 mg PO TID 05/30/19 01/14/20 History allopurinoL [Zyloprim] 300 mg PO DAILY 05/30/19 01/14/20 History Albuterol Inhaler [Ventolin Hfa 1 puff INHALATION RT-Q4H PRN 10/03/19 01/14/20 History Inhaler] Ascorbic Acid [Vitamin C] 1,000 mg PO DAILY 10/03/19 01/14/20 History Cyanocobalamin (Vitamin B-12) 2,500 mcg PO DAILY 10/03/19 01/14/20 History [Vitamin B-12] Esomeprazole Magnesium [NexIUM] 40 mg PO DAILY 10/03/19 01/14/20 History Ferrous Sulfate [Iron (65 MG 325 mg PO DAILY 10/03/19 01/14/20 History Elemental)] Furosemide [Lasix] 40 mg PO TID 10/03/19 01/14/20 History Magnesium 250 mg PO BID 10/03/19 01/14/20 History Potassium Chloride 10 meq PO BID 10/03/19 01/14/20 History Amiodarone [Cordarone] 200 mg PO TID #60 tab 10/07/19 01/14/20 Rx Metoprolol Succinate (ER) [Toprol 75 mg PO DAILY 14 Days #42 tab 10/07/19 01/14/20 Rx Xl] Warfarin Sodium 2.5 mg PO SUMOWEFRSA 01/14/20 01/14/20 History cycloSPORINE [Restasis] 2 applicator BOTH EYES BID 01/15/20 01/15/20 History Allergies Allergy/AdvReac Type Severity Reaction Status Date / Time Acnjhno-Thx-Tuf Reductase Allergy Mild Rash/Hives Verified 01/14/20 18:44 Inhibitor Physical Exam Vitals: Vital Signs Temp Pulse Pulse Resp BP BP Pulse Ox 01/15/20 12:12 108 H 01/15/20 12:00 108 H 93 20 164/80 93 L 01/15/20 11:48 98.4 F 109 H 18 99/59 94 L 01/15/20 09:34 112 H 01/15/20 09:22 108 H 01/15/20 08:00 97.8 F 129 H 20 140/66 01/15/20 04:49 97.8 F 82 20 102/58 95 01/15/20 01:04 98.0 F 111 H 18 100/59 91 L 01/14/20 20:00 98.2 F 128 H 18 115/60 91 L 01/14/20 17:43 135 H 18 01/14/20 17:36 134 H 18 01/14/20 17:10 133 H 18 97 01/14/20 17:05 134 H 01/14/20 16:12 98.9 F 149 H 22 158/84 93 L Intake and Output 01/14/20 01/15/20 01/15/20 22:59 06:59 14:59 Intake Total 8.750 91.25 476 Output Total 300 Balance 8.750 91.25 176 Intake: Intake, IV Titration 8.750 91.25 Amount Diltiazem 125 mg In 8.750 91.25 Sodium Chloride 0.9% 100 ml @ 5 MG/HR 5 mls/hr IV .Q24H [facility] Rx#:[id number] Oral 476 Output: Urine 300 Other: # Voids 1 Weight 115.212 kg 116.3 kg Results 01/14/20 16:57 01/15/20 10:56 Cardiac Enzymes 01/14/20 01/14/20 Range/Units 16:57 16:57 AST 29 (17-59) U/L Troponin I 0.020 (0.000-0.034) ng/mL Coagulation 01/14/20 01/15/20 Range/Units 16:57 11:15 PT 18.2 H 16.0 H (9.0-12.0) sec APTT 27.8 (22.0-30.0) sec CBC 01/14/20 Range/Units 16:57 WBC 7.5 (3.8-10.6) k/uL RBC 4.42 (4.30-5.90) m/uL Hgb 14.1 (13.0-17.5) gm/dL Hct 44.2 (39.0-53.0) % Plt Count 217 (150-450) k/uL Comprehensive Metabolic Panel 01/14/20 01/15/20 Range/Units 16:57 10:56 Sodium 140 140 (137-145) mmol/L Potassium 4.2 3.9 (3.5-5.1) mmol/L Chloride 101 97 L (98-107) mmol/L Carbon Dioxide 34 H 37 H (22-30) mmol/L BUN 15 17 (9-20) mg/dL Creatinine 0.74 0.79 (0.66-1.25) mg/dL Glucose 110 H 103 H (74-99) mg/dL Calcium 8.9 9.3 (8.4-10.2) mg/dL AST 29 (17-59) U/L ALT 23 (4-49) U/L Alkaline Phosphatase 75 (38-126) U/L Total Protein 6.8 (6.3-8.2) g/dL Albumin 4.0 (3.5-5.0) g/dL Current Medications Generic Name Dose Route Start Last Admin Trade Name Freq PRN Reason Stop Dose Admin Albuterol Sulfate 2.5 mg 01/15/20 07:51 Albuterol Nebulized 2.5 Mg/3 Ml INHALATION RT-Q4H PRN Shortness Of Breath Allopurinol 300 mg 01/15/20 09:00 01/15/20 08:58 Allopurinol 300 Mg Tab PO 300 mg DAILY J[facility]ITA Administration Amiodarone HCl 200 mg 01/14/20 22:30 01/15/20 08:58 Amiodarone 200 Mg Tab PO 200 mg TID JULITA Administration Aspirin 81 mg 01/15/20 09:00 01/15/20 08:56 Aspirin 81 Mg PO 81 mg DAILY JULITA Administration Atorvastatin Calcium 40 mg 01/14/20 22:30 01/14/20 23:31 Atorvastatin 80 Mg Tab PO 40 mg HS JULITA Administration Budesonide/Formoterol Fumarate 2 puff 01/15/20 08:00 01/15/20 09:27 Symbicort 160-4.5 Mcg Inhaler INHALATION Not Given RT-BID J[facility]ITA Cyclobenzaprine HCl 5 mg 01/14/20 22:26 01/14/20 23:31 Cyclobenzaprine 5 Mg Tab PO 5 mg HS PRN Administration sleep Cyclosporine 1 drops 01/15/20 09:15 01/15/20 13:32 Cyclosporine 0.05% Ophth 0.4 Ml [place] BOTH EYES 1 drops BID JULITA Administration Docusate Sodium 100 mg 01/15/20 09:00 01/15/20 08:58 Docusate 100 Mg Cap PO 100 mg TID JULITA Administration Famotidine 20 mg 01/14/20 21:00 01/15/20 08:56 Famotidine 20 Mg Tab PO 20 mg BID JULITA Administration Ferrous Sulfate 325 mg 01/15/20 09:00 01/15/20 08:56 Ferrous Sulfate 325 Mg Tab PO 325 mg DAILY [facility] Administration Fluticasone Propionate 2 spray 01/15/20 09:00 01/15/20 13:32 Fluticasone 50mcg/[place] Nasal 16gm EA NOSTRIL 2 spray BID JULITA Administration Furosemide 60 mg 01/15/20 16:00 Furosemide 10 Mg/Ml 10 Ml Vial IV Q8HR [facility] Ipratropium [place] 0.5 mg 01/15/20 08:00 01/15/20 11:59 Ipratropium 0.5 Mg/2.5 Ml Nebu INHALATION 0.5 mg RT-QID JULITA Administration Lisinopril 5 mg 01/15/20 10:45 01/15/20 13:32 Lisinopril 5 Mg Tab PO 5 mg DAILY JULITA Administration Loratadine 10 mg 01/15/20 07:51 Loratadine 10 Mg Tab PO DAILY PRN Allergy Symptoms Magnesium Oxide 400 mg 01/15/20 09:00 01/15/20 08:57 Magnesium Oxide 400 Mg Tab PO 400 mg DAILY JULITA Administration Metoprolol Succinate 100 mg 01/15/20 09:00 01/15/20 08:56 Metoprolol Succinate (Er) 100 Mg Tab.Er.24h PO 100 mg DAILY JULITA Administration Miscellaneous Information 0 each 01/15/20 08:02 Warfarin Per Pharmacy MISCELLANE DIRECTED PRN per protocol Montelukast Sodium 10 mg 01/14/20 22:30 01/14/20 23:31 Montelukast 10 Mg Tab PO 10 mg HS [facility]ITA Administration Naloxone HCl 0.2 mg 01/14/20 18:00 Naloxone 0.4 Mg/Ml 1 Ml Vial IV Q2M PRN Opioid Reversal Nitroglycerin 0.4 mg 01/15/20 07:51 Nitroglycerin Sl Tabs 0.4 Mg Tab SUBLINGUAL Q5M PRN Chest Pain Pantoprazole Sodium 40 mg 01/15/20 09:00 01/15/20 10:54 Pantoprazole 40 Mg Tablet PO 40 mg [id number]-[id number] JULITA Administration Potassium Chloride 10 meq 01/15/20 09:00 01/15/20 08:58 Potassium Chloride Er 10 Meq Tab.Er.Prt PO 10 meq BID [facility]ITA Administration Spironolactone 25 mg 01/14/20 22:30 01/14/20 23:31 Spironolactone 25 Mg Tab PO 25 mg HS [facility]ITA Administration Tamsulosin HCl 0.4 mg 01/14/20 22:30 01/14/20 23:31 Tamsulosin 0.4 Mg Cap.Er.24h PO 0.4 mg HS [facility]ITA Administration Trospium 20 mg 01/15/20 09:00 01/15/20 13:33 Trospium Chloride 20 Mg Tablet PO 20 mg QAM [facility]ITA Administration Warfarin Sodium 5 mg 01/15/20 18:00 Warfarin 5 Mg Tab PO 01/15/20 18:01 ONCE@1800 ONE Protocol Intake and Output 01/14/20 01/15/20 01/15/20 22:59 06:59 14:59 Intake Total 8.750 91.25 476 Output Total 300 Balance 8.750 91.25 176 Intake: Intake, IV Titration 8.750 91.25 Amount Diltiazem 125 mg In 8.750 91.25 Sodium Chloride 0.9% 100 ml @ 5 MG/HR 5 mls/hr IV .Q24H [facility] Rx#:[id number] Oral 476 Output: Urine 300 Other: # Voids 1 Weight 115.212 kg 116.3 kg 01/14/20 16:57 01/15/20 10:56
[2020-01-15] MEDS: FUROSEMIDE 10 MG/ML 10 ML VIAL IV SCH ×2 (16:40→23:01)
[2020-01-15] MEDS ORDERED: WARFARIN 5 MG TAB PO ONE (18:00)
[2020-01-15] MEDS: ATORVASTATIN 80 MG TAB PO SCH (20:45)
[2020-01-15] MEDS: SPIRONOLACTONE 25 MG TAB PO SCH (20:46)
[2020-01-15] MEDS: MONTELUKAST 10 MG TAB PO SCH (20:46)
[2020-01-15] MEDS: TAMSULOSIN 0.4 MG CAP.ER.24H PO SCH (20:46)
[2020-01-16] MEDS: PANTOPRAZOLE 40 MG TABLET PO SCH (06:22)
[2020-01-16] MEDS: IPRATROPIUM 0.5 MG/2.5 ML NEBU INHALATION SCH ×4 (08:39→21:39)
[2020-01-16] MEDS: SYMBICORT 160-4.5 MCG INHALER INHALATION SCH ×2 (08:40→21:39)
[2020-01-16] MEDS: DOCUSATE 100 MG CAP PO SCH ×3 (08:46→20:32)
[2020-01-16] MEDS: FAMOTIDINE 20 MG TAB PO SCH ×2 (08:47→20:31)
[2020-01-16] MEDS: AMIODARONE 200 MG TAB PO SCH ×3 (08:47→20:35)
[2020-01-16] MEDS: FUROSEMIDE 10 MG/ML 10 ML VIAL IV SCH ×3 (08:47→23:00)
[2020-01-16] MEDS: MAGNESIUM OXIDE 400 MG TAB PO SCH (08:47)
[2020-01-16] MEDS: ASPIRIN 81 MG PO SCH (08:47)
[2020-01-16] MEDS: allopurinoL 300 MG TAB PO SCH (08:47)
[2020-01-16] MEDS: FLUTICASONE 50MCG/SPRAY NASAL 16GM EA NOSTRIL SCH ×2 (08:47→20:31)
[2020-01-16] MEDS: METOPROLOL SUCCINATE (ER) 100 MG TAB.ER.24H PO SCH (08:47)
[2020-01-16] MEDS: POTASSIUM CHLORIDE ER 10 MEQ TAB.ER.PRT PO SCH ×2 (08:47→20:32)
[2020-01-16] MEDS: TROSPIUM CHLORIDE 20 MG TABLET PO SCH (08:51)
[2020-01-16] MEDS: cycloSPORINE 0.05% OPHTH 0.4 ML DROPERETTE BOTH EYES SCH ×2 (08:51→20:31)
[2020-01-16] MEDS: FERROUS SULFATE 325 MG TAB PO SCH (08:56)
[2020-01-16 08:58] LABS: INR 1.4 (<1.2); Prothrombin Time 14.1 sec (9.0-12.0)
[2020-01-16 08:59] LABS: Calcium 9.3 mg/dL (8.4-10.2); Potassium 4.1 mmol/L (3.5-5.1)
--- NOTE | 2020-01-16 10:23 | P.PN ---
Subjective 74-year-old male was admitted for atrial fibrillation with rapid ventricular rate. His heart failure exacerbation. Patient blood pressures are extremely low. Lisinopril will be discontinued temporarily once his blood pressure tolerates patient can be started on DEYSI inhibitor there is no emergency in starting DEYSI inhibitor at this time. Patient kidney function has worsened a bit at this time patient will remain on IV Lasix. Patient was started on amiodarone and digoxin. Patient remains on beta faustino. Patient is still in A. fib but heart rate is bit better controlled compared to yesterday. Constitutional: Denied any fatigue denied any fever. Cardio vascular: denied any chest pain, palpitations Gastrointestinal denied any nausea vomiting Pulmonary: Denied any shortness of breath cough Neurologic denied any new focal deficits All inpatient medications were reviewed and appropriate changes in these medications as dictated in the interval history and assessment and plan. Objective - Vital Signs Vital signs: Vital Signs Temp 97.8 F 01/16/20 08:00 Pulse 108 H 01/16/20 08:52 Resp 20 01/16/20 08:00 BP 85/56 01/16/20 08:00 Pulse Ox 99 01/16/20 08:00 Intake & Output 01/15/20 01/16/20 01/16/20 18:59 06:59 18:59 Intake Total 716 240 Output Total 550 1100 800 Balance 166 -1100 -560 Weight 115.8 kg Intake: Oral 716 240 Output: Urine 550 1100 800 Other: Voiding Method Toilet Urinal - Exam PHYSICAL EXAMINATION: GENERAL: The patient is alert and oriented x3, not in any acute distress. Well developed, well nourished. HEENT: Pupils are round and equally reacting to light. EOMI. No scleral icterus. No conjunctival pallor. Normocephalic, atraumatic. No pharyngeal erythema. No thyromegaly. CARDIOVASCULAR: S1 and S2 present. No murmurs, rubs, or gallops. Tachycardic irregularly irregular rhythm PULMONARY: Chest is clear to auscultation, no wheezing or crackles. ABDOMEN: Soft, nontender, nondistended, normoactive bowel sounds. No palpable organomegaly. MUSCULOSKELETAL: No joint swelling or deformity. EXTREMITIES: No cyanosis, clubbing, does have 1-2+ pitting pedal edema NEUROLOGICAL: Gross neurological examination did not reveal any focal deficits. SKIN: No rashes. - Labs CBC & Chem 7: 01/14/20 16:57 01/16/20 08:15 Labs: Abnormal Lab Results - Last 24 Hours (Table) 01/15/20 01/15/20 01/16/20 Range/Units 10:56 11:15 08:15 PT 16.0 H 14.1 H (9.0-12.0) sec INR 1.6 H 1.4 H (<1.2) Chloride 97 L (98-107) mmol/L Carbon Dioxide 37 H (22-30) mmol/L BUN (9-20) mg/dL Glucose 103 H (74-99) mg/dL 01/16/20 Range/Units 08:15 PT (9.0-12.0) sec INR (<1.2) Chloride 97 L (98-107) mmol/L Carbon Dioxide 34 H (22-30) mmol/L BUN 23 H (9-20) mg/dL Glucose 191 H (74-99) mg/dL Assessment and Plan Plan: -Atrial fibrillation with rapid ventricular rate: Cardizem will discuss reviewed patient metoprolol dose will be increased patient's INR lower patient will remain on 5 mg of Coumadin which was an increase from his home dose. We'll continue to monitor INR without any change in dose of Coumadin. is presently on amiodarone, metoprolol, digoxin. -Congestive heart failure chronic systolic dysfunction with acute exacerbation this exacerbation is probably precipitated by atrial fibrillation. Patient will remain on IV Lasix DEYSI inhibitor will be temporally held as patient blood pressure is an 80 systolic -COPD without any acute exacerbation -Gastroesophageal reflux disease -Hyperlipidemia -hypertension -benign prostatic hypertrophy -Sleep apnea -Peripheral vascular disease
[2020-01-16 12:23] LABS: ALT 23 U/L (4-49); AST 25 U/L (17-59)
--- NOTE | 2020-01-16 14:48 | P.PN ---
Subjective Progress Note Date: 01/16/20 CHIEF COMPLAINT: A flutter with RVR HISTORY OF PRESENT ILLNESS: Patient examined at the bedside with Dr. Nicole. Patient reports his shortness of breath is improving. He continues to have lower extremity edema. He remains on IV Lasix. Fluid balance over the last 24 hours is -1 L. Patient hypotensive this morning with a systolic blood pressure in the 80-90s PHYSICAL EXAM: VITAL SIGNS: Reviewed. GENERAL: Well-developed in no acute distress. HEENT: Head is normocephalic. Pupils are equal, round. Sclerae anicteric. Mucous membranes of the mouth are moist. Neck supple. No JVD or thyromegaly LUNGS: Respirations even and unlabored. Lungs with bilateral rales noted. HEART: Regular rate and rhythm. S1 and S2 heard. ABDOMEN: Soft. Nondistended. Nontender. EXTREMITIES: Normal range of motion. No clubbing or cyanosis. Peripheral pulses intact. 2+ lower extremity edema NEUROLOGIC: Awake and alert. Oriented x 3. ASSESSMENT: Typical atrial flutter with RVR Acute exacerbation of systolic congestive heart failure, EF 40-45% History of coronary artery disease with previous PCI History of aortic stenosis, status post TAVR Hypertension Hyperlipidemia COPD Diabetes mellitus, type II Obesity BMI 36.3 PLAN: Continue metoprolol Continue telemetry monitoring Continue Coumadin with pharmacy to dose. Monitor INR Lisinopril added yesterday secondary to cardiomyopathy. However patient's blood pressure has been unable to tolerate at this time and has since been discontinued Continue IV Lasix 60 mg IV every 8 hours Monitor kidney function Accurate I&O Daily weights Repeat echocardiogram Further recommendations pending patient course Nurse practitioner note has been reviewed by physician. Signing provider agrees with the documented findings, assessment, and plan of care. Objective - Vital Signs Vital signs: Vital Signs Temp 97 F L 01/16/20 11:37 Pulse 116 H 01/16/20 12:22 Resp 20 01/16/20 11:37 BP 108/80 01/16/20 11:37 Pulse Ox 98 01/16/20 11:37 Intake & Output 01/15/20 01/16/20 01/16/20 18:59 06:59 18:59 Intake Total 716 365 Output Total 550 1100 800 Balance 166 -1100 -435 Weight 115.8 kg Intake: Oral 716 365 Output: Urine 550 1100 800 Other: Voiding Method Toilet Urinal - Labs CBC & Chem 7: 01/14/20 16:57 01/16/20 08:15 Labs: Abnormal Lab Results - Last 24 Hours (Table) 01/16/20 01/16/20 01/16/20 Range/Units 08:15 08:15 11:22 PT 14.1 H (9.0-12.0) sec INR 1.4 H (<1.2) Chloride 97 L (98-107) mmol/L Carbon Dioxide 34 H (22-30) mmol/L BUN 23 H (9-20) mg/dL Glucose 191 H (74-99) mg/dL Plasma Lactic Acid Frank 2.1 H* (0.7-2.0) mmol/L
[2020-01-16] MEDS: lisinopriL 5 MG TAB PO SCH (16:00)
[2020-01-16] MEDS ORDERED: WARFARIN 5 MG TAB PO ONE (18:00)
--- NOTE | 2020-01-16 19:00 | ECHOF ---
Referral Reason:LV function, follow up from September echo MEASUREMENTS -------- HEIGHT: 177.8 cm WEIGHT: 115.7 kg BP: 85/56 RVIDd: 3.1 cm (< 3.3) IVSd: 1.5 cm (0.6 - 1.1) LVIDd: 4.5 cm (3.9 - 5.3) LVPWd: 1.5 cm (0.6 - 1.1) IVSs: 1.9 cm LVIDs: 3.5 cm LVPWs: 2.1 cm LA Diam: 3.9 cm (2.7 - 3.8) LAESV Index (A-L): 43.48 ml/m Ao Diam: 2.8 cm (2.0 - 3.7) MV EXCURSION: 10.846 mm (> 18.000) MV EF SLOPE: 42 mm/s (70 - 150) EPSS: 2.3 cm AV maxP.22 mmHg AV meanP.92 mmHg RAP: 5.00 mmHg RVSP: 26.04 mmHg FINDINGS -------- Atrial fibrillation. TAVR procedure in 1999 This was a technically difficult study with suboptimal views. The left ventricular size is normal. There is moderate concentric left ventricular hypertrophy. O verall left ventricular systolic function is moderate-severely impaired with, an EF between 30 - 35 % . The right ventricle is normal in size. LA is severely dilated >40 ml/m2 The right atrium was not well visualized. Lumason used Interatrial and interventricular septum intact. Peak/mean gradient across the Aortic Valve is 4.22mmHg / 1.92mmHg. There is mild stefani-prosthetic re gurgitation of the bioprosthetic aortic valve. The mitral valve leaflets are mildly thickened. Mild mitral annular calcification present. There is trace to mild mitral regurgitation. The peak and mean MV gradients are 13.47mmHg 3.94mmHg as me asured by doppler. Mild mitral stenosis. Mild tricuspid regurgitation present. Right ventricular systolic pressure is normal at < 35 mmHg. The pulmonic valve was not well visualized. The aortic root size is normal. Normal inferior vena cava with normal inspiratory collapse consistent with estimated right atrial pre ssure of 5 mmHg. There is no pericardial effusion. CONCLUSIONS -------- 1. This was a technically difficult study with suboptimal views. 2. The left ventricular size is normal. 3. There is moderate concentric left ventricular hypertrophy. 4. Overall left ventricular systolic function is moderate-severely impaired with, an EF between 30 - 35 %. 5. LA is severely dilated >40 ml/m2 6. Lumason used 7. Peak/mean gradient across the Aortic Valve is 4.22mmHg / 1.92mmHg. 8. There is mild stefani-prosthetic regurgitation of the bioprosthetic aortic valve. 9. The mitral valve leaflets are mildly thickened. 10. Mild mitral annular calcification present. 11. There is trace to mild mitral regurgitation. 12. The peak and mean MV gradients are 13.47mmHg 3.94mmHg as measured by doppler. 13. Mild mitral stenosis. 14. Mild tricuspid regurgitation present. 15. There is no pericardial effusion. [facility] NURSE: Yazmin Mendoza RDCS
[2020-01-16] MEDS: ATORVASTATIN 80 MG TAB PO SCH (20:31)
[2020-01-16] MEDS: MONTELUKAST 10 MG TAB PO SCH (20:32)
[2020-01-16] MEDS: SPIRONOLACTONE 25 MG TAB PO SCH (20:32)
[2020-01-16] MEDS: TAMSULOSIN 0.4 MG CAP.ER.24H PO SCH (20:32)
[2020-01-16] MEDS: CYCLOBENZAPRINE 5 MG TAB PO PRN (20:32)
[2020-01-16] MEDS: MELATONIN 5 MG TABLET PO PRN (22:55)
[2020-01-17] MEDS: PANTOPRAZOLE 40 MG TABLET PO SCH (06:26)
[2020-01-17 07:49] LABS: INR 1.3 (<1.2); Prothrombin Time 13.4 sec (9.0-12.0)
[2020-01-17 07:56] LABS: Calcium 9.1 mg/dL (8.4-10.2); Magnesium 1.8 mg/dL (1.6-2.3)
[2020-01-17] MEDS: FUROSEMIDE 10 MG/ML 10 ML VIAL IV SCH (08:47)
[2020-01-17] MEDS: METOPROLOL SUCCINATE (ER) 100 MG TAB.ER.24H PO SCH (08:47)
[2020-01-17] MEDS: ASPIRIN 81 MG PO SCH (08:47)
[2020-01-17] MEDS: AMIODARONE 200 MG TAB PO SCH ×3 (08:47→20:53)
[2020-01-17] MEDS: DOCUSATE 100 MG CAP PO SCH ×3 (08:47→20:53)
[2020-01-17] MEDS: MAGNESIUM OXIDE 400 MG TAB PO SCH (08:47)
[2020-01-17] MEDS: FAMOTIDINE 20 MG TAB PO SCH ×2 (08:47→20:53)
[2020-01-17] MEDS: allopurinoL 300 MG TAB PO SCH (08:48)
[2020-01-17] MEDS: cycloSPORINE 0.05% OPHTH 0.4 ML DROPERETTE BOTH EYES SCH ×2 (08:48→20:55)
[2020-01-17] MEDS: FLUTICASONE 50MCG/SPRAY NASAL 16GM EA NOSTRIL SCH ×2 (08:48→20:53)
[2020-01-17] MEDS: POTASSIUM CHLORIDE ER 10 MEQ TAB.ER.PRT PO SCH (08:48)
[2020-01-17] MEDS: TROSPIUM CHLORIDE 20 MG TABLET PO SCH (08:48)
[2020-01-17] MEDS: FERROUS SULFATE 325 MG TAB PO SCH (08:49)
[2020-01-17] MEDS: IPRATROPIUM 0.5 MG/2.5 ML NEBU INHALATION SCH ×4 (08:57→20:29)
[2020-01-17] MEDS: SYMBICORT 160-4.5 MCG INHALER INHALATION SCH ×2 (08:57→20:29)
--- NOTE | 2020-01-17 12:18 | P.PN ---
Subjective 74-year-old male was admitted for atrial fibrillation with rapid ventricular rate. His heart failure exacerbation. Patient blood pressures are extremely low. Lisinopril will be discontinued temporarily once his blood pressure tolerates patient can be started on DEYSI inhibitor there is no emergency in starting DEYSI inhibitor at this time. Patient kidney function has worsened a bit at this time patient will remain on IV Lasix. Patient was started on amiodarone and digoxin. Patient remains on beta faustino. Patient is still in A. fib but heart rate is bit better controlled compared to yesterday. 01/17/2020 Patient blood pressure is low because of which I'll will back off on the Lasix for now. Patient heart rate remains high. Patient has mild worsening of serum creatinine.his INR is low at 1.3 we'll increase the Coumadin dose to 6mg Repeat INR tomorrow Constitutional: Denied any fatigue denied any fever. Cardio vascular: denied any chest pain, palpitations Gastrointestinal denied any nausea vomiting Pulmonary: Denied any shortness of breath cough Neurologic denied any new focal deficits All inpatient medications were reviewed and appropriate changes in these medications as dictated in the interval history and assessment and plan. Objective - Vital Signs Vital signs: Vital Signs Temp 96.5 F L 01/17/20 08:00 Pulse 108 H 01/17/20 09:10 Resp 18 01/17/20 04:05 BP 82/52 01/17/20 08:00 Pulse Ox 97 01/17/20 08:00 Intake & Output 01/16/20 01/17/20 01/17/20 18:59 06:59 18:59 Intake Total 605 10 240 Output Total 1200 2100 Balance -269 -5807 240 Weight 116 kg Intake: IV 10 0.9 10 Oral 605 240 Output: Urine 1200 2100 Other: Voiding Method Toilet Urinal - Exam PHYSICAL EXAMINATION: GENERAL: The patient is alert and oriented x3, not in any acute distress. Well developed, well nourished. HEENT: Pupils are round and equally reacting to light. EOMI. No scleral icterus. No conjunctival pallor. Normocephalic, atraumatic. No pharyngeal erythema. No thyromegaly. CARDIOVASCULAR: S1 and S2 present. No murmurs, rubs, or gallops. Tachycardic irregularly irregular rhythm PULMONARY: Chest is clear to auscultation, no wheezing or crackles. ABDOMEN: Soft, nontender, nondistended, normoactive bowel sounds. No palpable organomegaly. MUSCULOSKELETAL: No joint swelling or deformity. EXTREMITIES: No cyanosis, clubbing, does have 1-2+ pitting pedal edema NEUROLOGICAL: Gross neurological examination did not reveal any focal deficits. SKIN: No rashes. - Labs CBC & Chem 7: 01/14/20 16:57 01/17/20 06:51 Labs: Abnormal Lab Results - Last 24 Hours (Table) 01/16/20 01/17/20 01/17/20 Range/Units 11:22 06:51 06:51 PT 13.4 H (9.0-12.0) sec INR 1.3 H (<1.2) Chloride 95 L (98-107) mmol/L Carbon Dioxide 39 H (22-30) mmol/L BUN 32 H (9-20) mg/dL Glucose 105 H (74-99) mg/dL Plasma Lactic Acid Frank 2.1 H* (0.7-2.0) mmol/L Assessment and Plan Plan: -Atrial fibrillation with rapid ventricular rate: patient is presently on amiodarone and metoprolol patient's INR lower low, will be started on 6 mg of Coumadin which was an increase from his home dose. We'll continue to monitor INR without any change in dose of Coumadin. patient is presently on amiodarone, metoprolol. -Congestive heart failure chronic systolic dysfunction with acute exacerbation this exacerbation is probably precipitated by atrial fibrillation. Patient will remain on IV Lasix DEYSI inhibitor will be temporally held as patient blood pressure is an 80 systolic -hypertension: Probably secondary to atrial fibrillation and diuresis psoriasis will be held temporarily. Part of patient's pedal edema is probably peripheral venous insufficiency. -COPD without any acute exacerbation -Gastroesophageal reflux disease -Hyperlipidemia -hypertension -benign prostatic hypertrophy -Sleep apnea -Peripheral vascular disease
--- NOTE | 2020-01-17 12:54 | P.PN ---
Subjective Progress Note Date: 01/17/20 CHIEF COMPLAINT: A flutter with RVR HISTORY OF PRESENT ILLNESS: Patient seen and examined. Patient Able to walk the halls however with dyspnea upon the end of his walk. He does still have significant lower extremity edema, suspect component of venous insufficiency. He has not been putting out much urine and his BUN and creatinine have been increasing. Suspect component of lower extremity edema mainly related to venous insufficiency and he may have some component of overdiuresis. Blood pressures in the 80s and 90s systolic. PHYSICAL EXAM: VITAL SIGNS: Reviewed. GENERAL: Well-developed in no acute distress. HEENT: Head is normocephalic. Pupils are equal, round. Sclerae anicteric. Mucous membranes of the mouth are moist. Neck supple. No thyromegaly LUNGS: Respirations even and unlabored. HEART: Regular rate and rhythm. S1 and S2 heard. ABDOMEN: Soft. Nondistended. Nontender. EXTREMITIES: Normal range of motion. No clubbing or cyanosis. Peripheral pulses intact. 2+ lower extremity edema NEUROLOGIC: Awake and alert. Oriented x 3. ASSESSMENT: Typical atrial flutter with RVR Acute exacerbation of systolic congestive heart failure, EF 30-35% History of coronary artery disease with previous PCI History of aortic stenosis, status post TAVR Hypertension Hyperlipidemia COPD Diabetes mellitus, type II Obesity BMI 36.3 Increasing Cr and BUN Worsened EF 30-35% down from prior 40-45%, possibly related to tachy induced. PLAN: Continue metoprolol Continue telemetry monitoring Continue Coumadin with pharmacy to dose. Monitor INR Patient with continued tachycardia despite Toprol 100 mg daily. Continue with amiodarone. If patient remains uncontrolled, may consider BRAYDEN and cardioversion. He has had increasing BUN and creatinine and suspect majority of his lower extremity edema may be related to venous insufficiency however he reports this is new. Worsened ejection fraction may be tachycardia induced. We hold further Lasix for today and monitor kidney function and his symptoms. Objective - Vital Signs Vital signs: Vital Signs Temp 96.5 F L 01/17/20 08:00 Pulse 100 01/17/20 12:28 Resp 18 01/17/20 04:05 BP 82/52 01/17/20 08:00 Pulse Ox 97 01/17/20 08:00 Intake & Output 01/16/20 01/17/20 01/17/20 18:59 06:59 18:59 Intake Total 605 10 240 Output Total 1200 2100 Balance -595 -2089 240 Weight 116 kg Intake: IV 10 0.9 10 Oral 605 240 Output: Urine 1200 2100 Other: Voiding Method Toilet Urinal - Labs CBC & Chem 7: 01/14/20 16:57 01/17/20 06:51 Labs: Abnormal Lab Results - Last 24 Hours (Table) 01/17/20 01/17/20 Range/Units 06:51 06:51 PT 13.4 H (9.0-12.0) sec INR 1.3 H (<1.2) Chloride 95 L (98-107) mmol/L Carbon Dioxide 39 H (22-30) mmol/L BUN 32 H (9-20) mg/dL Glucose 105 H (74-99) mg/dL
[2020-01-17] MEDS ORDERED: WARFARIN 3 MG TAB PO ONE (18:00)
[2020-01-17] MEDS: ATORVASTATIN 80 MG TAB PO SCH (20:52)
[2020-01-17] MEDS: SPIRONOLACTONE 25 MG TAB PO SCH (20:53)
[2020-01-17] MEDS: MONTELUKAST 10 MG TAB PO SCH (20:53)
[2020-01-17] MEDS: TAMSULOSIN 0.4 MG CAP.ER.24H PO SCH (20:53)
[2020-01-17] MEDS: MELATONIN 5 MG TABLET PO PRN (22:38)
[2020-01-17 23:18] VITALS: RESP 18
[2020-01-18 07:15] VITALS: TEMP 97.4
[2020-01-18] MEDS: FLUTICASONE 50MCG/SPRAY NASAL 16GM EA NOSTRIL SCH (07:53)
[2020-01-18] MEDS: PANTOPRAZOLE 40 MG TABLET PO SCH (07:53)
[2020-01-18] MEDS: cycloSPORINE 0.05% OPHTH 0.4 ML DROPERETTE BOTH EYES SCH (07:54)
[2020-01-18] MEDS: DOCUSATE 100 MG CAP PO SCH (07:55)
[2020-01-18] MEDS: AMIODARONE 200 MG TAB PO SCH (07:55)
[2020-01-18] MEDS: FAMOTIDINE 20 MG TAB PO SCH (07:55)
[2020-01-18] MEDS: ASPIRIN 81 MG PO SCH (07:55)
[2020-01-18] MEDS: MAGNESIUM OXIDE 400 MG TAB PO SCH (07:55)
[2020-01-18] MEDS: FERROUS SULFATE 325 MG TAB PO SCH (07:55)
[2020-01-18] MEDS: allopurinoL 300 MG TAB PO SCH (07:55)
[2020-01-18] MEDS: TROSPIUM CHLORIDE 20 MG TABLET PO SCH (07:56)
[2020-01-18] MEDS: METOPROLOL SUCCINATE (ER) 100 MG TAB.ER.24H PO SCH (07:56)
[2020-01-18 08:19] LABS: INR 1.6 (<1.2); Prothrombin Time 16.1 sec (9.0-12.0)
[2020-01-18 08:26] LABS: Potassium 4.1 mmol/L (3.5-5.1)
[2020-01-18 08:27] LABS: African American GFR (CKD) >90 (>60 ml/min/1.73 sqM); Anion Gap 5 mmol/L; Blood Urea Nitrogen 28 mg/dL (9-20); Calcium 9.2 mg/dL (8.4-10.2); Carbon Dioxide 37 mmol/L (22-30); Chloride 95 mmol/L (98-107); Glucose 109 mg/dL (74-99); Non-African American GFR(CKD) 80 (>60 ml/min/1.73 sqM); Sodium 137 mmol/L (137-145)
[2020-01-18] MEDS: IPRATROPIUM 0.5 MG/2.5 ML NEBU INHALATION SCH ×2 (08:28→11:24)
[2020-01-18] MEDS: SYMBICORT 160-4.5 MCG INHALER INHALATION SCH (08:29)
--- NOTE | 2020-01-18 12:03 | P.DS ---
Providers Date of admission: 01/14/20 18:00 Attending physician: Ana Laura Lucio Consults: 01/14/20 18:00 Consult Physician Urgent Consulting Provider: Tino Rocha Consult Reason/Comments: Atrial flutter with RVR Do you want consulting provider notified?: Yes Primary care physician: [facility] Course: 74-year-old male was admitted for atrial fibrillation with rapid ventricular rate. His heart failure exacerbation. Patient blood pressures are extremely low. Lisinopril will be discontinued temporarily once his blood pressure tolerates patient can be started on DEYSI inhibitor there is no emergency in starting DEYSI inhibitor at this time. Patient kidney function has worsened a bit at this time patient will remain on IV Lasix. Patient was started on amiodarone and digoxin. Patient remains on beta faustino. Patient is still in A. fib but heart rate is bit better controlled compared to yesterday. 01/17/2020 Patient blood pressure is low because of which I'll will back off on the Lasix for now. Patient heart rate remains high. Patient has mild worsening of serum creatinine.his INR is low at 1.3 we'll increase the Coumadin dose to 6mg 01/18/2020 Patient's INR is still low patient's Coumadin dose was increased and patient will be discharged on increased dose of Coumadin 36 bleed grams daily.patient heart rate is better controlled today. If cleared by cardiology patient will be discharged today patient will resume on his home dose of Lasix. Wei Honeycutt to be monitored closely after discharge. PHYSICAL EXAMINATION: GENERAL: The patient is alert and oriented x3, not in any acute distress. please HEENT: Pupils are round and equally reacting to light. EOMI. No scleral icterus. No conjunctival pallor. Normocephalic, atraumatic. No pharyngeal erythema. No t hyromegaly. CARDIOVASCULAR: S1 and S2 present. No murmurs, rubs, or gallops. tachycardia improved but irregularly irregular rhythm PULMONARY: Chest is clear to auscultation, no wheezing or crackles. ABDOMEN: Soft, nontender, nondistended, normoactive bowel sounds. No palpable organomegaly. MUSCULOSKELETAL: No joint swelling or deformity. EXTREMITIES: No cyanosis, clubbing, significant improvement in pedal edema still has some edema. NEUROLOGICAL: Gross neurological examination did not reveal any focal deficits. SKIN: No rashes. Plan - Discharge Summary Discharge Rx Participant: No New Discharge Prescriptions: New Warfarin [Coumadin] 6 mg PO DAILY@1800 #30 tab Metoprolol Succinate (ER) [Toprol XL] 100 mg PO DAILY #30 tab.er.24h Continue Montelukast [Singulair] 10 mg PO HS Tamsulosin [Flomax] 0.4 mg PO HS Spironolactone 25 mg PO HS Cholecalciferol [Vitamin D3 (25 Mcg = 1000 Iu)] 3,000 unit PO DAILY Loratadine [Claritin] 10 mg PO DAILY PRN PRN Reason: Allergy Symptoms Fluticasone Nasal [place] [Flonase Nasal [place]] 2 spr EA NOSTRIL BID Tiotropium 18 Mcg/Puff [Spiriva] 2 puff INHALATION RT-HS Budesonide-Formot 160-4.5 Mcg [Symbicort 160-4.5 Mcg Inhaler] 2 puff INHALATION RT-BID Atorvastatin [Lipitor] 40 mg PO HS Solifenacin Succinate [Vesicare] 5 mg PO QAM Cyclobenzaprine [Flexeril] 5 mg PO HS PRN PRN Reason: sleep Nitroglycerin Sl Tabs [Nitrostat] 0.4 mg SUBLINGUAL Q5M PRN #25 tab PRN Reason: Chest Pain Aspirin EC [Ecotrin Low Dose] 81 mg PO DAILY Docusate [Colace] 100 mg PO TID allopurinoL [Zyloprim] 300 mg PO DAILY Magnesium 250 mg PO BID Esomeprazole Magnesium [NexIUM] 40 mg PO DAILY Cyanocobalamin (Vitamin B-12) [Vitamin B-12] 2,500 mcg PO DAILY Potassium Chloride 10 meq PO BID Ferrous Sulfate [Iron (65 MG Elemental)] 325 mg PO DAILY Furosemide [Lasix] 40 mg PO TID Albuterol Inhaler [Ventolin Hfa Inhaler] 1 puff INHALATION RT-Q4H PRN PRN Reason: Shortness Of Breath Ascorbic Acid [Vitamin C] 1,000 mg PO DAILY Amiodarone [Cordarone] 200 mg PO TID #60 tab cycloSPORINE [Restasis] 2 applicator BOTH EYES BID Discontinued Warfarin [Coumadin] 5 mg PO TUTH Metoprolol Succinate (ER) [Toprol Xl] 75 mg PO DAILY 14 Days #42 tab Warfarin Sodium 2.5 mg PO SUMOWEFRSA Discharge Medication List Montelukast [Singulair] 10 mg PO HS 09/09/13 [History] Tamsulosin [Flomax] 0.4 mg PO HS 09/09/13 [History] Spironolactone 25 mg PO HS 04/03/14 [History] Cholecalciferol [Vitamin D3 (25 Mcg = 1000 Iu)] 3,000 unit PO DAILY 06/09/15 [History] Budesonide-Formot 160-4.5 Mcg [Symbicort 160-4.5 Mcg Inhaler] 2 puff INHALATION RT-BID 08/07/16 [History] Fluticasone Nasal [place] [Flonase Nasal [place]] 2 spr EA NOSTRIL BID 08/07/16 [History] Loratadine [Claritin] 10 mg PO DAILY PRN 08/07/16 [History] Tiotropium 18 Mcg/Puff [Spiriva] 2 puff INHALATION RT-HS 08/07/16 [History] Atorvastatin [Lipitor] 40 mg PO HS 05/02/17 [History] Cyclobenzaprine [Flexeril] 5 mg PO HS PRN 05/02/17 [History] Solifenacin Succinate [Vesicare] 5 mg PO QAM 05/02/17 [History] Nitroglycerin Sl Tabs [Nitrostat] 0.4 mg SUBLINGUAL Q5M PRN #25 tab 06/07/17 [Rx] Aspirin EC [Ecotrin Low Dose] 81 mg PO DAILY 09/12/17 [History] Docusate [Colace] 100 mg PO TID 05/30/19 [History] allopurinoL [Zyloprim] 300 mg PO DAILY 05/30/19 [History] Albuterol Inhaler [Ventolin Hfa Inhaler] 1 puff INHALATION RT-Q4H PRN 10/03/19 [History] Ascorbic Acid [Vitamin C] 1,000 mg PO DAILY 10/03/19 [History] Cyanocobalamin (Vitamin B-12) [Vitamin B-12] 2,500 mcg PO DAILY 10/03/19 [History] Esomeprazole Magnesium [NexIUM] 40 mg PO DAILY 10/03/19 [History] Ferrous Sulfate [Iron (65 MG Elemental)] 325 mg PO DAILY 10/03/19 [History] Furosemide [Lasix] 40 mg PO TID 10/03/19 [History] Magnesium 250 mg PO BID 10/03/19 [History] Potassium Chloride 10 meq PO BID 10/03/19 [History] Amiodarone [Cordarone] 200 mg PO TID #60 tab 10/07/19 [Rx] cycloSPORINE [Restasis] 2 applicator BOTH EYES BID 01/15/20 [History] Metoprolol Succinate (ER) [Toprol XL] 100 mg PO DAILY #30 tab.er.24h 01/18/20 [Rx] Warfarin [Coumadin] 6 mg PO DAILY@1800 #30 tab 01/18/20 [Rx] Follow up Appointment(s)/Referral(s): [facility]Clinic [Primary Care Provider] - 1-2 days Ambulatory/Diagnostic Orders: Prothrombin Time INR [LAB.AMB] Time Frame: 3 Days, Location: None Selected Discharge Disposition: HOME SELF-CARE
[2020-01-18 14:40] VITALS: BP 116/78; PULSE 110
--- NOTE | 2020-01-18 16:32 | P.PN ---
Subjective Progress Note Date: 01/18/20 HISTORY OF PRESENT ILLNESS: Patient seen and examined. patient's creatinine improved with lower dose of diuretics. He denies any issues with walking the halls however does have chronic dyspnea on exertion. He still has chronic lower extremity edema. Patient is anxious to go home. He denies any chest pain or pressure. PHYSICAL EXAM: VITAL SIGNS: Reviewed. GENERAL: Well-developed in no acute distress. HEENT: Head is normocephalic. Pupils are equal, round. Sclerae anicteric. Mucous membranes of the mouth are moist. Neck supple. No thyromegaly LUNGS: Respirations even and unlabored. HEART: Regular rate and rhythm. S1 and S2 heard. ABDOMEN: Soft. Nondistended. Nontender. EXTREMITIES: Normal range of motion. No clubbing or cyanosis. Peripheral pu lses intact. 2+ lower extremity edema NEUROLOGIC: Awake and alert. Oriented x 3. ASSESSMENT: Typical atrial flutter with RVR Acute exacerbation of systolic congestive heart failure, EF 30-35% History of coronary artery disease with previous PCI History of aortic stenosis, status post TAVR Hypertension Hyperlipidemia COPD Diabetes mellitus, type II Obesity BMI 36.3 lower extremity edema, likely component of chronic venous insufficiency Worsened EF 30-35% down from prior 40-45%, possibly related to tachy induced. PLAN: iscussed case with internal medicine. Patient has been doing well and majority of lower extremity edema likely related to venous insufficiency. Recommend compression stockings upon discharge. Patient appears stable for discharge home. Continue with Lopressor for rate control. Follow-up in office in 1-2 weeks. Objective - Vital Signs Vital signs: Vital Signs Temp 97.4 F L 01/18/20 07:14 Pulse 110 H 01/18/20 12:00 Resp 18 01/18/20 07:16 BP 116/78 01/18/20 12:00 Pulse Ox 98 01/18/20 07:14 Intake & Output 01/17/20 01/18/20 01/18/20 18:59 06:59 18:59 Intake Total 720 10 720 Output Total 600 400 400 Balance 120 -390 320 Weight 116.9 kg Intake: IV 10 0.9 10 Oral 720 720 Output: Urine 600 400 400 Other: Voiding Method Toilet Toilet Urinal Urinal # Voids 1 - Labs CBC & Chem 7: 01/14/20 16:57 01/18/20 07:22 Labs: Abnormal Lab Results - Last 24 Hours (Table) 01/18/20 01/18/20 Range/Units 07:22 07:22 PT 16.1 H (9.0-12.0) sec INR 1.6 H (<1.2) Chloride 95 L (98-107) mmol/L Carbon Dioxide 37 H (22-30) mmol/L BUN 28 H (9-20) mg/dL Glucose 109 H (74-99) mg/dL
[2020-01-18] MEDS ORDERED: WARFARIN 3 MG TAB PO SCH ×2 (18:00)
== END 2020-01-18 15:16 | disposition home or self-care (01) | DRG 308 ==
LOC: EC 16:11 → 3SCARD 18:00
PROVIDERS: ADMIT Internal Medicine; ATTEND Internal Medicine
DX: I48.3 Typical atrial flutter (principal); I50.23 Acute on chronic systolic (congestive) heart failure; I48.91 Unspecified atrial fibrillation; I11.0 Hypertensive heart disease with heart failure; I10 Essential (primary) hypertension; I42.9 Cardiomyopathy, unspecified; E78.5 Hyperlipidemia, unspecified; E66.9 Obesity, unspecified; E11.51 Type 2 diabetes mellitus with diabetic peripheral angiopathy without gangrene; G47.30 Sleep apnea, unspecified; H91.90 Unspecified hearing loss, unspecified ear; I25.10 Atherosclerotic heart disease of native coronary artery without angina pectoris; K21.9 Gastro-esophageal reflux disease without esophagitis; T44.7X6A Underdosing of beta-adrenoreceptor antagonists, initial encounter; Z91.128 Patient's intentional underdosing of medication regimen for other reason; N40.0 Benign prostatic hyperplasia without lower urinary tract symptoms; J44.9 Chronic obstructive pulmonary disease, unspecified; I35.0 Nonrheumatic aortic (valve) stenosis; Z79.51 Long term (current) use of inhaled steroids; Z79.01 Long term (current) use of anticoagulants; Z79.82 Long term (current) use of aspirin; Z79.899 Other long term (current) drug therapy; Z88.8 Allergy status to other drugs, medicaments and biological substances; Z87.891 Personal history of nicotine dependence; Z68.36 Body mass index [BMI] 36.0-36.9, adult; Z85.46 Personal history of malignant neoplasm of prostate; Z87.442 Personal history of urinary calculi; Z95.2 Presence of prosthetic heart valve; Z87.01 Personal history of pneumonia (recurrent); Z90.49 Acquired absence of other specified parts of digestive tract; Z98.42 Cataract extraction status, left eye; Z98.41 Cataract extraction status, right eye; Z98.890 Other specified postprocedural states; Z95.5 Presence of coronary angioplasty implant and graft; Z83.79 Family history of other diseases of the digestive system; Z90.89 Acquired absence of other organs
CPT/HCPCS: 36415; 71046; 80048; 80053; 80162; 83605; 83735; 83880; 84450; 84460; 84484; 85025; 85610; 85730; 93005; 93306; 94640; 96365; 96366; 96375; 96376; 99291

== ENCOUNTER → 2020-02-03 | Outpatient (CLI) | payer MEDICARE ==
--- NOTE | 2020-02-03 12:08 | US ---
EXAMINATION TYPE: US abdomen complete DATE OF EXAM: 02/03/2020 COMPARISON: CT abdomen and pelvis September 12, 2017 CLINICAL HISTORY: R93.89 ABN FINDINGS. EXAM MEASUREMENTS: Liver Length: 14.3 cm Gallbladder Wall: 0.4 cm CBD: 0.6 cm Spleen: not positively identified Right Kidney: 12.8 x 5.0 x 5.6 cm Left Kidney: 12.4 x 5.5 x 5.1 cm Morbidly obese patient carrying most of his weight in his abdomen with severe overlying bowel gas, te chnically difficult, very limited study. Pancreas: Obscured by bowel gas Liver: attenuating, limited visualization Gallbladder: patient states cholecystectomy, however there does appear to be a gallbladder with ston es and slightly thickened wall, unable to elongate Evidence for sonographic Fletcher's sign: no CBD: wnl Spleen: not positively identified Right Kidney: measures large, multiple echogenic foci largest 0.5 x 0.3 x 0.6cm , multiple cysts lar gest measuring 2.2 x 2.1 x 2.5cm Left Kidney: measures large, multiple echogenic foci largest 0.9 x 0.6 x 0.6cm, multiple cysts larg est measuring 2.2 x 1.6 x 1.9cm Upper IVC: wnl Abd Aorta: Obscured by overlying bowel gas The visualized liver is heterogeneously hyperechoic. Evaluation for focal masses suboptimal. The intr ahepatic portion of the IVC is seen. Suboptimal evaluation of abdominal aorta secondary to large bod y habitus and overlying bowel gas. The level of the gallbladder fossa there is hypoechoic oval struct ure with intraluminal shadowing hyperechoic focus suspicious for remnant gallbladder and gallstone. M ild gallbladder wall thickening up to 4 mm. Sonographic Fletcher sign negative. No adjacent fluid. Comm on bile duct is unremarkable. Suboptimal evaluation of pancreas due to body habitus and overlying bow el gas.. The spleen is not well identified towards end of study. There are thin-walled cysts scatter ed throughout both kidneys. There are shadowing hyperechoic foci suspicious for nonobstructing calcul i bilaterally which correlates with 2018 CT. no hydronephrosis noted bilaterally. IMPRESSION: Suboptimal study. Suspect incomplete or failed complete cholecystectomy. Consider HIDA sc an follow-up. Probable persistent nonobstructing bilateral renal calculi. Diffuse fatty infiltration liver redemonstrated. Correlation with old outside study advised as not certain what outside study wa s abnormal given ordering history of abnormal findings and no recent study at this institution.
== END | disposition home or self-care (01) ==
LOC: RADUSWWP 10:14
PROVIDERS: ATTEND Family Medicine
DX: K76.0 Fatty (change of) liver, not elsewhere classified (principal); R93.89 Abnormal findings on diagnostic imaging of other specified body structures
CPT/HCPCS: 76700

== ENCOUNTER → 2020-03-10 | Outpatient (CLI) | payer MEDICARE ==
[2020-03-10 19:19] LABS: African American GFR (CKD) 76.2 (60.0-200.0); Anion Gap 8.7 mmol/L (4.00-12.00); BUN/Creat Ratio 19.09 Ratio (12.00-20.00); Calcium 9.3 mg/dL (8.7-10.3); Carbon Dioxide 34.3 mmol/L (21.6-31.8); Non-African American GFR(CKD) 65.8 (60.0-200.0); Potassium 3.9 mmol/L (3.5-5.5)
== END | disposition home or self-care (01) ==
LOC: LABWHC1 11:36
PROVIDERS: ATTEND Nurse Practitioner Adult Health
DX: I10 Essential (primary) hypertension (principal)
CPT/HCPCS: 36415; 80048

== ENCOUNTER 2020-04-16 18:40 | Observation (INO) | payer MEDICARE ==
--- NOTE | 2020-04-16 19:04 | ED ---
General Adult HPI - General Chief complaint: Shortness of Breath Stated complaint: ALLYN Time Seen by Provider: 04/16/20 18:51 Source: patient Mode of arrival: wheelchair Limitations: no limitations - History of Present Illness Initial comments: Patient presents the ED complaining of having a rapid heart rate and increased dyspnea today. Patient states that he has COPD and is on 3 L of home O2. Patient states that he has chronic dyspnea, but his dyspnea has increased today. Patient states that he knows that his heart rate is elevated because he checks it at home, but he denies having any sensation of palpitations. Patient denies having any pain, fever or chills, headache, focal numbness/weakness/neuro deficit, chest pain or pressure, cough or cold symptoms, dizziness, syncope, nausea or vomiting, abdominal pain, diarrhea, dysuria or urinary symptoms, decreased urine output, leg or swelling or pain, or any other symptoms or complaints. Patient states that he has a history of atrial fibrillation for which he is on Coumadin anticoagulation therapy. Patient also states that he recently began digoxin treatment. - Related Data Home Medications Medication Instructions Recorded Confirmed Montelukast [Singulair] 10 mg PO HS 09/09/13 04/16/20 Tamsulosin [Flomax] 0.4 mg PO HS 09/09/13 04/16/20 Spironolactone 12.5 mg PO HS 04/03/14 04/16/20 Cholecalciferol [Vitamin D3 (25 3,000 unit PO DAILY 06/09/15 04/16/20 Mcg = 1000 Iu)] Budesonide-Formot 160-4.5 Mcg 2 puff INHALATION RT-BID 08/07/16 04/16/20 [Symbicort 160-4.5 Mcg Inhaler] Fluticasone Nasal [place] [Flonase 2 spr EA NOSTRIL DAILY 08/07/16 04/16/20 Nasal [place]] Loratadine [Claritin] 10 mg PO DAILY 08/07/16 04/16/20 Tiotropium 18 Mcg/Puff [Spiriva] 1 cap INHALATION RT-HS 08/07/16 04/16/20 Atorvastatin [Lipitor] 40 mg PO HS 05/02/17 04/16/20 Cyclobenzaprine [Flexeril] 5 mg PO HS 05/02/17 04/16/20 Solifenacin Succinate [Vesicare] 5 mg PO DAILY 05/02/17 04/16/20 Aspirin EC [Ecotrin Low Dose] 81 mg PO DAILY 09/12/17 04/16/20 Docusate [Colace] 100 mg PO TID 05/30/19 04/16/20 Albuterol Inhaler [Ventolin Hfa 1 puff INHALATION RT-Q4H PRN 10/03/19 04/16/20 Inhaler] Ascorbic Acid [Vitamin C] 1,000 mg PO DAILY 10/03/19 04/16/20 Esomeprazole Magnesium [NexIUM] 40 mg PO DAILY 10/03/19 04/16/20 Ferrous Sulfate [Iron (65 MG 325 mg PO DAILY 10/03/19 04/16/20 Elemental)] Furosemide [Lasix] 40 mg PO DAILY 10/03/19 04/16/20 Magnesium 250 mg PO BID 10/03/19 04/16/20 Potassium Chloride 10 meq PO BID 10/03/19 04/16/20 cycloSPORINE [Restasis] 1 drop BOTH EYES BID 01/15/20 04/16/20 Cyanocobalamin (Vitamin B-12) 1,000 mcg PO DAILY 04/16/20 04/16/20 [Vitamin B-12] Digoxin [Digitek] 125 mcg PO DAILY 04/16/20 04/16/20 Furosemide [Lasix] 20 mg PO HS 04/16/20 04/16/20 Nitroglycerin Sl Tabs [Nitrostat] 0.4 mg SL Q5M PRN 04/16/20 04/16/20 Vitamin E 1,000 unit PO DAILY 04/16/20 04/16/20 Warfarin Sodium 5 mg PO TH@209904/16/20 04/16/20 Warfarin [Coumadin] 2.5 mg PO SUMOTUWEFRSA@2100 04/16/20 04/16/20 allopurinoL [Zyloprim] 300 mg PO DAILY 04/16/20 04/16/20 Previous Rx's Medication Instructions Recorded Metoprolol Succinate (ER) [Toprol 100 mg PO DAILY #30 tab.er.24h 01/18/20 XL] Allergies Allergy/AdvReac Type Severity Reaction Status Date / Time Iadpobq-Mom-Lnd Reductase Allergy Mild Rash/Hives Verified 04/16/20 19:37 Inhibitor Review of Systems ROS Statement: Those systems with pertinent positive or pertinent negative responses have been documented in the HPI. ROS Other: All systems not noted in ROS Statement are negative. Past Medical History Past Medical History: Atrial Fibrillation, Asthma, Coronary Artery Disease (CAD), Cancer, COPD, Diabetes Mellitus, GERD/Reflux, Hearing Disorder / Deafness, Hyperlipidemia, Hypertension, Osteoarthritis (OA), Pneumonia, Prostate Disorder, Sleep Apnea/CPAP/BIPAP, Vascular Disorder Additional Past Medical History / Comment(s): Prostate cancer. see Dr Nguyễn H&P FOR CARDIAC HISTORY , O2 2L PRN AND AT BEDTIME , hiatal hernia, kidney stones, "bad back", past a fib cardiomyopathy aortic stenosis, PRE- DIABETIC -DIET CONTROLLED, aortic valve replacment 09/03 History of Any Multi-Drug Resistant Organisms: None Reported Past Surgical History: Ablation, Bladder Surgery, Cholecystectomy, Heart Catheterization With Stent, Hernia Repair, Tonsillectomy Additional Past Surgical History / Comment(s): CARDIOVERSION, MUKESH FEMORAL BYPASS SURGERY, MUKESH.inguinal hernia, UMBILICAL HERNIA REPAIR, surgery for PILONIDAL CYST, mukesh CATARACTS, ARCH/AORTOGRAM, cystoscopy for KIDNEY STONE REMOVAL x 3, LT CAROTID ENDARTECTOMY. BRAYDEN 05/10/17, 06/06, 06/04/19, 2 stents to the RCA Past Anesthesia/Blood Transfusion Reactions: No Reported Reaction Date of Last Stent Placement:: 06/06/18 Past Psychological History: No Psychological Hx Reported Smoking Status: Former smoker Past Alcohol Use History: Daily Past Drug Use History: None Reported - Past Family History Father Family Medical History: Liver Disease Mother Family Medical History: No Reported History Additional Family Medical History / Comment(s): . General Exam Limitations: no limitations General appearance: alert, in no apparent distress Head exam: Present: atraumatic, normocephalic Eye exam: Present: normal appearance, EOMI ENT exam: Present: mucous membranes moist Neck exam: Present: other (Trachea is in midline) Respiratory exam: Present: normal lung sounds bilaterally. Absent: respiratory distress, wheezes, rales, rhonchi, stridor Cardiovascular Exam: Present: tachycardia, irregular rhythm, normal heart sounds, other (Normal radial pulses bilaterally) GI/Abdominal exam: Present: soft. Absent: distended, tenderness, guarding Extremities exam: Present: other (Negative Homans sign bilaterally). Absent: tenderness, pedal edema, calf tenderness Neurological exam: Present: alert, oriented X3. Absent: motor sensory deficit Psychiatric exam: Present: normal affect, normal mood Skin exam: Present: warm, dry, intact, normal color Course Vital Signs 04/16/20 04/16/20 18:46 19:10 Temperature 98.5 F Pulse Rate 131 H 126 H Respiratory 20 24 Rate Blood Pressure 120/67 136/109 O2 Sat by Pulse 92 L 99 Oximetry - Reevaluation(s) Reevaluation #1: 04/16/20 20:24 Patient remains in atrial fibrillation on the quality assurance monitor. Patient's heart rate has now improved to the 90s. Patient denies development of any new symptoms while in the ED. Patient remains alert and breathing comfortable. Patient is aware of his test results, and he agrees with hospital admission at this time. 04/16/20 20:30 Case, H&P, test results and ED management were discussed with Dr. Bales. She accepts hospital admission. She has no further recommendations at this time. EKG Findings - EKG Comments: EKG Findings:: Atrial fibrillation with rapid ventricular response, ventricular rate of 125 bpm, normal QRS duration, normal QT interval, normal axis, no ST or T-wave abnormality Medical Decision Making - Medical Decision Making Patient's heart rate has improved with IV diltiazem given in the ED. Patient remains in atrial fibrillation while in the ED. Patient's troponin is negative. I suspect that the patient's symptoms are likely secondary to rapid atrial fibrillation. Will admit the patient to the hospital for cardiac monitoring. Dr. Bales has accepted hospital admission. - Lab Data Result diagrams: 04/16/20 19:17 04/16/20 19:17 Lab Results 04/16/20 04/16/20 04/16/20 Range/Units 19:17 19:17 19:17 WBC 7.4 (3.8-10.6) k/uL RBC 4.08 L (4.30-5.90) m/uL Hgb 13.8 (13.0-17.5) gm/dL Hct 42.0 (39.0-53.0) % MCV 103.1 H (80.0-100.0) fL MCH 33.7 (25.0-35.0) pg MCHC 32.7 (31.0-37.0) g/dL RDW 14.8 (11.5-15.5) % Plt Count 168 (150-450) k/uL MPV 7.7 Neutrophils % 72 % Lymphocytes % 17 % Monocytes % 6 % Eosinophils % 1 % Basophils % 2 % Neutrophils # 5.3 (1.3-7.7) k/uL Lymphocytes # 1.2 (1.0-4.8) k/uL Monocytes # 0.5 (0-1.0) k/uL Eosinophils # 0.1 (0-0.7) k/uL Basophils # 0.1 (0-0.2) k/uL Macrocytosis Slight PT 16.5 H (9.0-12.0) sec INR 1.7 H (<1.2) APTT 26.6 (22.0-30.0) sec Sodium 141 (137-145) mmol/L Potassium 4.2 (3.5-5.1) mmol/L Chloride 99 (98-107) mmol/L Carbon Dioxide 37 H (22-30) mmol/L Anion Gap 5 mmol/L BUN 19 (9-20) mg/dL Creatinine 0.92 (0.66-1.25) mg/dL Est GFR (CKD-EPI)AfAm >90 (>60 ml/min/1.73 sqM) Est GFR (CKD-EPI)NonAf 82 (>60 ml/min/1.73 sqM) Glucose 121 H (74-99) mg/dL Calcium 9.1 (8.4-10.2) mg/dL Magnesium 1.8 (1.6-2.3) mg/dL Total Bilirubin 0.7 (0.2-1.3) mg/dL AST 22 (17-59) U/L ALT 20 (4-49) U/L Alkaline Phosphatase 93 (38-126) U/L Troponin I (0.000-0.034) ng/mL NT-Pro-B Natriuret Pep pg/mL Total Protein 7.1 (6.3-8.2) g/dL Albumin 4.0 (3.5-5.0) g/dL Digoxin <0.4 ng/mL Coronavirus (PCR) (Not Detectd) 04/16/20 04/16/20 04/16/20 Range/Units 19:17 19:17 19:17 WBC (3.8-10.6) k/uL RBC (4.30-5.90) m/uL Hgb (13.0-17.5) gm/dL Hct (39.0-53.0) % MCV (80.0-100.0) fL MCH (25.0-35.0) pg MCHC (31.0-37.0) g/dL RDW (11.5-15.5) % Plt Count (150-450) k/uL MPV Neutrophils % % Lymphocytes % % Monocytes % % Eosinophils % % Basophils % % Neutrophils # (1.3-7.7) k/uL Lymphocytes # (1.0-4.8) k/uL Monocytes # (0-1.0) k/uL Eosinophils # (0-0.7) k/uL Basophils # (0-0.2) k/uL Macrocytosis PT (9.0-12.0) sec INR (<1.2) APTT (22.0-30.0) sec Sodium (137-145) mmol/L Potassium (3.5-5.1) mmol/L Chloride (98-107) mmol/L Carbon Dioxide (22-30) mmol/L Anion Gap mmol/L BUN (9-20) mg/dL Creatinine (0.66-1.25) mg/dL Est GFR (CKD-EPI)AfAm (>60 ml/min/1.73 sqM) Est GFR (CKD-EPI)NonAf (>60 ml/min/1.73 sqM) Glucose (74-99) mg/dL Calcium (8.4-10.2) mg/dL Magnesium (1.6-2.3) mg/dL Total Bilirubin (0.2-1.3) mg/dL AST (17-59) U/L ALT (4-49) U/L Alkaline Phosphatase (38-126) U/L Troponin I <0.012 (0.000-0.034) ng/mL NT-Pro-B Natriuret Pep 700 pg/mL Total Protein (6.3-8.2) g/dL Albumin (3.5-5.0) g/dL Digoxin ng/mL Coronavirus (PCR) Not Detected (Not Detectd) - Radiology Data Radiology results: report reviewed (Chest x-ray shows hiatal hernia, no active cardiopulmonary disease) Disposition Clinical Impression: Atrial fibrillation with rapid ventricular response, Dyspnea Disposition: ADMITTED IP TO THIS HOSP Condition: Stable Is patient prescribed a controlled substance at d/c from ED?: No Referrals: [facility],Clinic [Primary Care Provider] - 1-2 days Time of Disposition: 20:31
[2020-04-16] MEDS ORDERED: DILTIAZEM 5 MG/ML 5 ML VIAL IVP STA (19:13)
[2020-04-16 19:27] LABS: Basophils # (A) 0.1 k/uL (0-0.2); Basophils % (A) 2 %; Eosinophils # (A) 0.1 k/uL (0-0.7); Eosinophils % (A) 1 %; HGB 13.8 gm/dL (13.0-17.5); Lymphocytes # (A) 1.2 k/uL (1.0-4.8); Lymphocytes % (A) 17 %; MCH 33.7 pg (25.0-35.0); MCHC 32.7 g/dL (31.0-37.0); MCV 103.1 fL (80.0-100.0); Macrocytosis Slight; Mean Platelet Volume 7.7; Monocytes # (A) 0.5 k/uL (0-1.0); Monocytes % (A) 6 %; Neutrophils # (A) 5.3 k/uL (1.3-7.7); Neutrophils % (A) 72 %; Platelet Count 168 k/uL (150-450); RBC 4.08 m/uL (4.30-5.90); RDW 14.8 % (11.5-15.5); WBC 7.4 k/uL (3.8-10.6)
[2020-04-16 19:38] LABS: INR 1.7 (<1.2); Partial Thromboplastin Time 26.6 sec (22.0-30.0); Prothrombin Time 16.5 sec (9.0-12.0)
[2020-04-16 19:39] LABS: ALT 20 U/L (4-49); AST 22 U/L (17-59); African American GFR (CKD) >90 (>60 ml/min/1.73 sqM); Alkaline Phosphatase 93 U/L (38-126); Anion Gap 5 mmol/L; Blood Urea Nitrogen 19 mg/dL (9-20); Calcium 9.1 mg/dL (8.4-10.2); Carbon Dioxide 37 mmol/L (22-30); Chloride 99 mmol/L (98-107); Digoxin <0.4 ng/mL; Glucose 121 mg/dL (74-99); Magnesium 1.8 mg/dL (1.6-2.3); Non-African American GFR(CKD) 82 (>60 ml/min/1.73 sqM); Potassium 4.2 mmol/L (3.5-5.1); Sodium 141 mmol/L (137-145); Total Bilirubin 0.7 mg/dL (0.2-1.3); Total Protein 7.1 g/dL (6.3-8.2)
--- NOTE | 2020-04-16 19:50 | XR ---
EXAMINATION TYPE: XR chest 2V DATE OF EXAM: 04/16/2020 COMPARISON: NONE HISTORY: Irregular heartbeat TECHNIQUE: 2 views FINDINGS: Heart is enlarged. There is hiatal hernia. There is stent at the aortic valve. Thoracic aor ta is atheromatous. Costophrenic angles are clear. There is no heart failure. IMPRESSION: Hiatal hernia. No active cardiopulmonary disease. There is clearing of the mild right bas ilar interstitial density compared to old exam.
[2020-04-16] MEDS ORDERED: ATORVASTATIN 80 MG TAB PO SCH (21:00)
[2020-04-16] MEDS ORDERED: WARFARIN 2.5 MG TAB PO SCH (21:00)
[2020-04-16] MEDS ORDERED: FUROSEMIDE 20 MG TAB PO SCH (21:00)
[2020-04-16] MEDS ORDERED: WARFARIN 5 MG TAB PO ONE (21:15)
[2020-04-16] MEDS: SPIRONOLACTONE 25 MG TAB PO SCH (22:46)
[2020-04-16] MEDS: ATORVASTATIN 40 MG TAB PO SCH (22:46)
[2020-04-16] MEDS: POTASSIUM CHLORIDE ER 10 MEQ TAB.ER.PRT PO SCH (22:47)
[2020-04-17 07:48] LABS: Basophils # (A) 0.1 k/uL (0-0.2); Basophils % (A) 1 %; Eosinophils # (A) 0.1 k/uL (0-0.7); Eosinophils % (A) 2 %; HCT 37.9 % (39.0-53.0); HGB 12.4 gm/dL (13.0-17.5); Lymphocytes # (A) 0.9 k/uL (1.0-4.8); Lymphocytes % (A) 18 %; MCHC 32.8 g/dL (31.0-37.0); MCV 103.5 fL (80.0-100.0); Macrocytosis Slight; Mean Platelet Volume 8.1; Monocytes # (A) 0.6 k/uL (0-1.0); Monocytes % (A) 10 %; Neutrophils # (A) 3.7 k/uL (1.3-7.7); Neutrophils % (A) 69 %; Platelet Count 150 k/uL (150-450); RBC 3.66 m/uL (4.30-5.90); RDW 14.8 % (11.5-15.5); WBC 5.3 k/uL (3.8-10.6)
[2020-04-17 08:09] LABS: INR 1.7 (<1.2); Prothrombin Time 16.9 sec (9.0-12.0)
[2020-04-17 08:17] LABS: ALT 17 U/L (4-49); AST 21 U/L (17-59); African American GFR (CKD) >90 (>60 ml/min/1.73 sqM); Albumin 3.5 g/dL (3.5-5.0); Alkaline Phosphatase 68 U/L (38-126); Anion Gap 2 mmol/L; Blood Urea Nitrogen 17 mg/dL (9-20); Calcium 8.8 mg/dL (8.4-10.2); Carbon Dioxide 37 mmol/L (22-30); Chloride 102 mmol/L (98-107); Glucose 92 mg/dL (74-99); Non-African American GFR(CKD) >90 (>60 ml/min/1.73 sqM); Potassium 3.9 mmol/L (3.5-5.1); Sodium 141 mmol/L (137-145); Total Bilirubin 0.8 mg/dL (0.2-1.3); Total Protein 6.3 g/dL (6.3-8.2)
[2020-04-17] MEDS: POTASSIUM CHLORIDE ER 10 MEQ TAB.ER.PRT PO SCH ×2 (08:42→21:10)
[2020-04-17] MEDS: ASPIRIN 81 MG PO SCH (08:42)
[2020-04-17] MEDS: METOPROLOL SUCCINATE (ER) 100 MG TAB.ER.24H PO SCH (08:52)
[2020-04-17] MEDS ORDERED: DIGOXIN 125 MCG TAB PO SCH (09:00)
[2020-04-17] MEDS ORDERED: FUROSEMIDE 40 MG TAB PO SCH (09:00)
--- NOTE | 2020-04-17 10:41 | P.CRDCN ---
History of Present Illness Consult date: 04/17/20 History of present illness: CHIEF COMPLAINT: Lonny mcgrath with RVR HISTORY OF PRESENT ILLNESS: This is a 75-year-old male with a past medical history significant for atrial fibrillation, coronary artery disease, COPD, diabetes mellitus, hypertension, and hyperlipidemia. Patient follows in the office with Dr. Nguyễn. We have been asked to see the patient in consultation for Lonny mcgrath. Patient states he had an appointment at the [place] yesterday for a follow-up on some lab work. He states when he was there they took his vital signs and his heart rate was found to be in the 130s to 140s. The patient denied feeling any palpitations. He denied any chest pain. He states he is short of breath at baseline but it has been worse over the last 3 days. 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 He spoke with Dr. Nguyễn yesterday who recommended that the patient come to the emergency room for further evaluation. Patient remains in atrial fibrillation this morning with heart rates in the low 100s. He states his shortness of breath has improved. He reports that he was started on digoxin about 3 months ago. DIAGNOSTICS: EKG reveals atrial fibrillation with RVR Chest xray negative for acute process Laboratory data: WBC 5.3. Hemoglobin 12.4. Platelet count 150. INR 1.7. Sodium 141. Potassium 3.9. BUN 17. Creatinine 0.69. BNP 700. Troponin negative 3. Dig 0.4 Current home cardiac medications include Coumadin 2.5 mg Sunday and 5 mg on , spironolactone 12.5 mg daily, potassium 10 meq BID, metoprolol 100 mg daily, Lasix 20 mg at night and 40 mg in the morning, digoxin 125mcg every other day, Lipitor 40 mg daily, and aspirin 81 mg daily Echocardiogram completed in January 2020 revealed ejection fraction 30-35% Patient underwent cardiac catheterization in May 2019 revealing stable coronary artery disease with a patent stent to the RCA REVIEW OF SYSTEMS: At the time of my exam: CONSTITUTIONAL: Denies fever or chills. HEENT: Denies blurred vision, vision changes, or eye pain. Denies hemoptysis CARDIOVASCULAR: Denies chest pain, orthopnea, PND or palpitations RESPIRATORY: No shortness of breath. GASTROINTESTINAL: Denies abdominal pain. Denies nausea or vomiting. HEMATOLOGIC: Denies bleeding disorders. GENITOURINARY: Denies any blood in urine. SKIN: Denies pruitis. Denies rash. PHYSICAL EXAM: VITAL SIGNS: Reviewed. GENERAL: Well-developed in no acute distress. HEENT: Head is normocephalic. Pupils are equal, round. Sclerae anicteric. Mucous membranes of the mouth are moist. Neck supple. No JVD or thyromegaly LUNGS: Respirations even and unlabored. Lungs diminished bilaterally HEART: Irregular rate and rhythm. S1 and S2 heard. ABDOMEN: Soft. Nondistended. Nontender. EXTREMITIES: Normal range of motion. No clubbing or cyanosis. Peripheral pulses intact. Trace bilateral lower extremity edema NEUROLOGIC: Awake and alert. Oriented x 3. ASSESSMENT: Paroxysmal atrial fibrillation with RVR Shortness of breath Subtherapeutic INR Coronary artery disease with previous PCI to RCA History of aortic stenosis, status post TAVR, August 2019 at [facility] Chronic systolic congestive heart failure, EF 30-35% COPD with home O2 use Hypertension Hyperlipidemia Obesity: BMI 37.7 PLAN: Resume home cardiac medications Continue Coumadin No need to repeat echo as this was performed in January 2020 Add amiodarone Discontinue digoxin Patient may be discharged home today from a cardiac standpoint. He is to follow up outpatient with Dr. Nguyễn Patient to have INR checked next week Nurse practitioner note has been reviewed by physician. Signing provider agrees with the documented findings, assessment, and plan of care. Past Medical History Past Medical History: Atrial Fibrillation, Asthma, Coronary Artery Disease (CAD), Cancer, COPD, Diabetes Mellitus, GERD/Reflux, Hearing Disorder / Deafness, Hyperlipidemia, Hypertension, Osteoarthritis (OA), Pneumonia, Prostate Disorder, Sleep Apnea/CPAP/BIPAP, Vascular Disorder Additional Past Medical History / Comment(s): Prostate cancer. see Dr Nguyễn H&P FOR CARDIAC HISTORY , O2 2L PRN AND AT BEDTIME , hiatal hernia, kidney stones, "bad back", past a fib cardiomyopathy aortic stenosis, PRE- DIABETIC -DIET CONTROLLED, aortic valve replacment 09/03 History of Any Multi-Drug Resistant Organisms: None Reported Past Surgical History: Ablation, Bladder Surgery, Cholecystectomy, Heart Catheterization With Stent, Hernia Repair, Tonsillectomy Additional Past Surgical History / Comment(s): CARDIOVERSION, MUKESH FEMORAL BYPASS SURGERY, MUKESH.inguinal hernia, UMBILICAL HERNIA REPAIR, surgery for PILONIDAL CYST, mukesh CATARACTS, ARCH/AORTOGRAM, cystoscopy for KIDNEY STONE REMOVAL x 3, LT CAROTID ENDARTECTOMY. BRAYDEN 05/10/17, 06/06, 06/04/19, 2 stents to the RCA Past Anesthesia/Blood Transfusion Reactions: No Reported Reaction Date of Last Stent Placement:: 06/06/18 Past Psychological History: No Psychological Hx Reported Smoking Status: Former smoker Past Alcohol Use History: Daily Additional Past Alcohol Use History / Comment(s): QUIT SMOKING 1991, SMOKED SINCE AGE 17(1961). SMOKED 1-3 PPD DRINKS 1-2 BEER A DAY Past Drug Use History: None Reported - Past Family History Father Family Medical History: Liver Disease Mother Family Medical History: No Reported History Additional Family Medical History / Comment(s): . Medications and Allergies Home Medications Medication Instructions Recorded Confirmed Type Montelukast [Singulair] 10 mg PO HS 09/09/13 04/16/20 History Tamsulosin [Flomax] 0.4 mg PO HS 09/09/13 04/16/20 History Spironolactone 12.5 mg PO HS 04/03/14 04/16/20 History Cholecalciferol [Vitamin D3 (25 3,000 unit PO DAILY 06/09/15 04/16/20 History Mcg = 1000 Iu)] Budesonide-Formot 160-4.5 Mcg 2 puff INHALATION RT-BID 08/07/16 04/16/20 History [Symbicort 160-4.5 Mcg Inhaler] Fluticasone Nasal [place] [Flonase 2 spr EA NOSTRIL DAILY 08/07/16 04/16/20 History Nasal [place]] Loratadine [Claritin] 10 mg PO DAILY 08/07/16 04/16/20 History Tiotropium 18 Mcg/Puff [Spiriva] 1 cap INHALATION RT-HS 08/07/16 04/16/20 Hi story Atorvastatin [Lipitor] 40 mg PO HS 05/02/17 04/16/20 History Cyclobenzaprine [Flexeril] 5 mg PO HS 05/02/17 04/16/20 History Solifenacin Succinate [Vesicare] 5 mg PO DAILY 05/02/17 04/16/20 History Aspirin EC [Ecotrin Low Dose] 81 mg PO DAILY 09/12/17 04/16/20 History Docusate [Colace] 100 mg PO TID 05/30/19 04/16/20 History Albuterol Inhaler [Ventolin Hfa 1 puff INHALATION RT-Q4H PRN 10/03/19 04/16/20 History Inhaler] Ascorbic Acid [Vitamin C] 1,000 mg PO DAILY 10/03/19 04/16/20 History Esomeprazole Magnesium [NexIUM] 40 mg PO DAILY 10/03/19 04/16/20 History Ferrous Sulfate [Iron (65 MG 325 mg PO DAILY 10/03/19 04/16/20 History Elemental)] Furosemide [Lasix] 40 mg PO DAILY 10/03/19 04/16/20 History Magnesium 250 mg PO BID 10/03/19 04/16/20 History Potassium Chloride 10 meq PO BID 10/03/19 04/16/20 History cycloSPORINE [Restasis] 1 drop BOTH EYES BID 01/15/20 04/16/20 History Metoprolol Succinate (ER) [Toprol 100 mg PO DAILY #30 tab.er.24h 01/18/20 04/16/20 Rx XL] Cyanocobalamin (Vitamin B-12) 1,000 mcg PO DAILY 04/16/20 04/16/20 History [Vitamin B-12] Digoxin [Digitek] 125 mcg PO DAILY 04/16/20 04/16/20 History Furosemide [Lasix] 20 mg PO HS 04/16/20 04/16/20 History Nitroglycerin Sl Tabs [Nitrostat] 0.4 mg SL Q5M PRN 04/16/20 04/16/20 History Vitamin E 1,000 unit PO DAILY 04/16/20 04/16/20 History Warfarin Sodium 5 mg PO TH@209904/16/20 04/16/20 History Warfarin [Coumadin] 2.5 mg PO SUMOTUWEFRSA@209904/16/20 04/16/20 History allopurinoL [Zyloprim] 300 mg PO DAILY 04/16/20 04/16/20 History Allergies Allergy/AdvReac Type Severity Reaction Status Date / Time Pyqpaln-Zty-Zdi Reductase Allergy Mild Rash/Hives Verified 04/16/20 19:37 Inhibitor Physical Exam Vitals: Vital Signs Temp Pulse Pulse Resp BP BP Pulse Ox 04/17/20 08:45 97.8 F 109 H 18 110/58 99 04/17/20 03:00 98.0 F 97 18 111/75 99 04/16/20 21:09 97.9 F 98 18 111/70 97 04/16/20 21:03 95 18 130/75 100 04/16/20 20:45 96 16 123/83 98 04/16/20 19:10 126 H 24 136/109 99 04/16/20 18:46 98.5 F 131 H 20 120/67 92 L Intake and Output 04/16/20 04/17/20 04/17/20 22:59 06:59 14:59 Other: # Voids 1 Weight 122.47 kg Results 04/17/20 06:46 04/17/20 06:46 Cardiac Enzymes 04/16/20 04/16/20 04/16/20 Range/Units 19:17 19:17 22:30 AST 22 (17-59) U/L Troponin I <0.012 <0.012 (0.000-0.034) ng/mL 04/17/20 04/17/20 Range/Units 01:27 06:46 AST 21 (17-59) U/L Troponin I <0.012 (0.000-0.034) ng/mL Coagulation 04/16/20 04/17/20 Range/Units 19:17 06:46 PT 16.5 H 16.9 H (9.0-12.0) sec APTT 26.6 (22.0-30.0) sec CBC 04/16/20 04/17/20 Range/Units 19:17 06:46 WBC 7.4 5.3 (3.8-10.6) k/uL RBC 4.08 L 3.66 L (4.30-5.90) m/uL Hgb 13.8 12.4 L (13.0-17.5) gm/dL Hct 42.0 37.9 L (39.0-53.0) % Plt Count 168 150 (150-450) k/uL Comprehensive Metabolic Panel 04/16/20 04/17/20 Range/Units 19:17 06:46 Sodium 141 141 (137-145) mmol/L Potassium 4.2 3.9 (3.5-5.1) mmol/L Chloride 99 102 (98-107) mmol/L Carbon Dioxide 37 H 37 H (22-30) mmol/L BUN 19 17 (9-20) mg/dL Creatinine 0.92 0.69 (0.66-1.25) mg/dL Glucose 121 H 92 (74-99) mg/dL Calcium 9.1 8.8 (8.4-10.2) mg/dL AST 22 21 (17-59) U/L ALT 20 17 (4-49) U/L Alkaline Phosphatase 93 68 (38-126) U/L Total Protein 7.1 6.3 (6.3-8.2) g/dL Albumin 4.0 3.5 (3.5-5.0) g/dL Current Medications Generic Name Dose Route Start Last Admin Trade Name Freq PRN Reason Stop Dose Admin Aspirin 81 mg 04/17/20 09:00 04/17/20 08:42 Aspirin 81 Mg PO 81 mg DAILY JULITA Administration Atorvastatin Calcium 40 mg 04/16/20 21:00 04/16/20 22:46 Atorvastatin 40 Mg Tab PO 40 mg HS JULITA Administration Digoxin 125 mcg 04/17/20 09:00 04/17/20 08:42 Digoxin 125 Mcg Tab PO 125 mcg DAILY JULITA Administration Furosemide 40 mg 04/17/20 09:00 04/17/20 08:42 Furosemide 40 Mg Tab PO 40 mg DAILY JULITA Administration Furosemide 20 mg 04/16/20 21:00 04/16/20 22:46 Furosemide 20 Mg Tab PO 20 mg HS JULITA Administration Metoprolol Succinate 100 mg 04/17/20 09:00 04/17/20 08:52 Metoprolol Succinate (Er) 100 Mg Tab.Er.24h PO 100 mg DAILY JULITA Administration Miscellaneous Information 1 each 04/16/20 21:16 Warfarin Per Pharmacy MISCELLANE DIRECTED PRN Per Protocol Potassium Chloride 10 meq 04/16/20 21:00 04/17/20 08:42 Potassium Chloride Er 10 Meq Tab.Er.Prt PO 10 meq BID JULITA Administration Spironolactone 12.5 mg 04/16/20 21:00 04/16/20 22:46 Spironolactone 25 Mg Tab PO 12.5 mg HS JULITA Administration Warfarin Sodium 5 mg 04/17/20 18:00 Warfarin 5 Mg Tab PO 04/17/20 18:01 ONCE@1800 ONE Intake and Output 04/16/20 04/17/20 04/17/20 22:59 06:59 14:59 Other: # Voids 1 Weight 122.47 kg 04/17/20 06:46 04/17/20 06:46
[2020-04-17] MEDS: AMIODARONE 200 MG TAB PO SCH ×2 (11:34→21:10)
--- NOTE | 2020-04-17 11:54 | P.HPIM ---
History of Present Illness H&P Date: 04/17/20 Chief Complaint: Palpitations Mr. Mccullough is a 75-year-old male with a past medical history of atrial fibrillation on anticoagulation now, asthma, coronary artery disease, COPD, diabetes mellitus, GERD, hypertension, hyperlipidemia, osteoarthritis, prostate disorder, obstructive sleep apnea, nephrolithiasis coming to the hospital with a chief complaint of palpitations. Patient states that he has a history of atrial fibrillation, for the past month he has been having issues with it. He has palpitations and that when he checked his heart rate it was in 130s and 140s so he is coming into the hospital for further evaluation. Patient denies having any chest pain, shortness of breath. He states that he has increased swelling of his lower extremities. Patient denies having any fevers chills or rigors. No cough or difficulty in breathing. Her mouth and nausea vomiting or diarrhea. No dysuria or hematuria. In the ER patient had an EKG done showing atrial fibrillation with rapid ventricular rate. He had labs showing white count of 5.3, hemoglobin 12.4, platelets 150. INR of 1.7. Sodium 141, potassium 3.9, chloride 102, bicarbonate 37, BUN 17, creatinine 0.6 Troponin less than 0.0123. Mata virus not detected. So patient was admitted for further evaluation. Review of Systems REVIEW OF SYSTEMS: CONSTITUTIONAL: No fever, no malaise, no fatigue. HEENT: No recent visual problems or hearing problems. Denied any sore throat. CARDIOVASCULAR: As per HPI PULMONARY:no hemoptysis. GASTROINTESTINAL: No abdominal pain, nausea vomiting or diarrhea. NEUROLOGICAL: No headaches, no weakness, no numbness. HEMATOLOGICAL: Denies any bleeding or petechiae. GENITOURINARY: Denies any burning micturition, frequency, or urgency. MUSCULOSKELETAL/RHEUMATOLOGICAL: No joint swelling, pain or deformities. ENDOCRINE: Denies any polyuria or polydipsia. The rest of the 14-point review of systems is negative. Past Medical History Past Medical History: Atrial Fibrillation, Asthma, Coronary Artery Disease (CAD), Cancer, COPD, Diabetes Mellitus, GERD/Reflux, Hearing Disorder / Deafness, Hyperlipidemia, Hypertension, Osteoarthritis (OA), Pneumonia, Prostate Disorder, Sleep Apnea/CPAP/BIPAP, Vascular Disorder Additional Past Medical History / Comment(s): Prostate cancer. see Dr Gundlapalli H&P FOR CARDIAC HISTORY , O2 2L PRN AND AT BEDTIME , hiatal hernia, kidney stones, "bad back", past a fib cardiomyopathy aortic stenosis, PRE- DIABETIC -DIET CONTROLLED, aortic valve replacment 09/03 History of Any Multi-Drug Resistant Organisms: None Reported Past Surgical History: Ablation, Bladder Surgery, Cholecystectomy, Heart Catheterization With Stent, Hernia Repair, Tonsillectomy Additional Past Surgical History / Comment(s): CARDIOVERSION, MUKESH FEMORAL BYPASS SURGERY, MUKESH.inguinal hernia, UMBILICAL HERNIA REPAIR, surgery for PILONIDAL CYST, mukesh CATARACTS, ARCH/AORTOGRAM, cystoscopy for KIDNEY STONE REMOVAL x 3, LT CAROTID ENDARTECTOMY. BRAYDEN 05/10/17, 06/06, 06/04/19, 2 stents to the RCA Past Anesthesia/Blood Transfusion Reactions: No Reported Reaction Date of Last Stent Placement:: 06/06/18 Past Psychological History: No Psychological Hx Reported Smoking Status: Former smoker Past Alcohol Use History: Daily Additional Past Alcohol Use History / Comment(s): QUIT SMOKING 1991, SMOKED SINCE AGE 17(1961). SMOKED 1-3 PPD DRINKS 1-2 BEER A DAY Past Drug Use History: None Reported - Past Family History Father Family Medical History: Liver Disease Mother Family Medical History: No Reported History Additional Family Medical History / Comment(s): . Medications and Allergies Home Medications Medication Instructions Recorded Confirmed Type Montelukast [Singulair] 10 mg PO HS 09/09/13 04/16/20 History Tamsulosin [Flomax] 0.4 mg PO HS 09/09/13 04/16/20 History Spironolactone 12.5 mg PO HS 04/03/14 04/16/20 History Cholecalciferol [Vitamin D3 (25 3,000 unit PO DAILY 06/09/15 04/16/20 History Mcg = 1000 Iu)] Budesonide-Formot 160-4.5 Mcg 2 puff INHALATION RT-BID 08/07/16 04/16/20 History [Symbicort 160-4.5 Mcg Inhaler] Fluticasone Nasal [place] [Flonase 2 spr EA NOSTRIL DAILY 08/07/16 04/16/20 History Nasal [place]] Loratadine [Claritin] 10 mg PO DAILY 08/07/16 04/16/20 History Tiotropium 18 Mcg/Puff [Spiriva] 1 cap INHALATION RT-HS 08/07/16 04/16/20 History Atorvastatin [Lipitor] 40 mg PO HS 05/02/17 04/16/20 History Cyclobenzaprine [Flexeril] 5 mg PO HS 05/02/17 04/16/20 History Solifenacin Succinate [Vesicare] 5 mg PO DAILY 05/02/17 04/16/20 History Aspirin EC [Ecotrin Low Dose] 81 mg PO DAILY 09/12/17 04/16/20 History Docusate [Colace] 100 mg PO TID 05/30/19 04/16/20 History Albuterol Inhaler [Ventolin Hfa 1 puff INHALATION RT-Q4H PRN 10/03/19 04/16/20 History Inhaler] Ascorbic Acid [Vitamin C] 1,000 mg PO DAILY 10/03/19 04/16/20 History Esomeprazole Magnesium [NexIUM] 40 mg PO DAILY 10/03/19 04/16/20 History Ferrous Sulfate [Iron (65 MG 325 mg PO DAILY 10/03/19 04/16/20 History Elemental)] Furosemide [Lasix] 40 mg PO DAILY 10/03/19 04/16/20 History Magnesium 250 mg PO BID 10/03/19 04/16/20 History Potassium Chloride 10 meq PO BID 10/03/19 04/16/20 History cycloSPORINE [Restasis] 1 drop BOTH EYES BID 01/15/20 04/16/20 History Metoprolol Succinate (ER) [Toprol 100 mg PO DAILY #30 tab.er.24h 01/18/20 04/16/20 Rx XL] Cyanocobalamin (Vitamin B-12) 1,000 mcg PO DAILY 04/16/20 04/16/20 History [Vitamin B-12] Digoxin [Digitek] 125 mcg PO DAILY 04/16/20 04/16/20 History Furosemide [Lasix] 20 mg PO HS 04/16/20 04/16/20 History Nitroglycerin Sl Tabs [Nitrostat] 0.4 mg SL Q5M PRN 04/16/20 04/16/20 History Vitamin E 1,000 unit PO DAILY 04/16/20 04/16/20 History Warfarin Sodium 5 mg PO TH@2100 04/16/20 04/16/20 History Warfarin [Coumadin] 2.5 mg PO SUMOTUWEFRSA@2100 04/16/20 04/16/20 History allopurinoL [Zyloprim] 300 mg PO DAILY 04/16/20 04/16/20 History Allergies Allergy/AdvReac Type Severity Reaction Status Date / Time Opjmbiv-[id number]-Pzy Reductase Allergy Mild Rash/Hives Verified 04/16/20 19:37 Inhibitor Physical Exam Vitals: Vital Signs Temp Pulse Pulse Resp BP BP Pulse Ox 04/17/20 09:00 109 H 18 04/17/20 08:45 97.8 F 109 H 18 110/58 99 04/17/20 03:00 98.0 F 97 18 111/75 99 04/16/20 21:09 97.9 F 98 18 111/70 97 04/16/20 21:03 95 18 130/75 100 04/16/20 20:45 96 16 123/83 98 04/16/20 19:10 126 H 24 136/109 99 04/16/20 18:46 98.5 F 131 H 20 120/67 92 L Intake and Output 04/16/20 04/17/20 04/17/20 22:59 06:59 14:59 Other: # Voids 1 Weight 122.47 kg PHYSICAL EXAMINATION: GENERAL: The patient is alert and oriented X3, in any acute distress. Well developed, well nourished. HEENT: Pupils are round and equally reacting to light. EOMI. No scleral icterus. No conjunctival pallor. Normocephalic, atraumatic. No pharyngeal erythema. No thyromegaly. CARDIOVASCULAR: Irregularly irregular PULMONARY: Chest is clear to auscultation, no wheezing or crackles. ABDOMEN: Soft, nontender. No organomegaly. Normal bowel sounds. MUSCULOSKELETAL: No joint swelling or deformity. EXTREMITIES: Bilateral pitting edema. NEUROLOGICAL: No focal neurological deficits on gross exam. SKIN: No rash Results CBC & Chem 7: 04/17/20 06:46 04/17/20 06:46 Labs: Abnormal Lab Results - Last 24 Hours (Table) 04/16/20 04/16/20 04/16/20 Range/Units 19:17 19:17 19:17 RBC 4.08 L (4.30-5.90) m/uL Hgb (13.0-17.5) gm/dL Hct (39.0-53.0) % MCV 103.1 H (80.0-100.0) fL Lymphocytes # (1.0-4.8) k/uL PT 16.5 H (9.0-12.0) sec INR 1.7 H (<1.2) Carbon Dioxide 37 H (22-30) mmol/L Glucose 121 H (74-99) mg/dL 04/17/20 04/17/20 04/17/20 Range/Units 06:46 06:46 06:46 RBC 3.66 L (4.30-5.90) m/uL Hgb 12.4 L (13.0-17.5) gm/dL Hct 37.9 L (39.0-53.0) % MCV 103.5 H (80.0-100.0) fL Lymphocytes # 0.9 L (1.0-4.8) k/uL PT 16.9 H (9.0-12.0) sec INR 1.7 H (<1.2) Carbon Dioxide 37 H (22-30) mmol/L Glucose (74-99) mg/dL Thrombosis Risk Factor Assmnt - Choose All That Apply Each Risk Factor Represents 2 Points: Age 61-74 years Thrombosis Risk Factor Assessment Total Risk Factor Score: 2 Thrombosis Risk Factor Assessment Level: Low Risk Assessment and Plan Assessment: ASSESSMENT Atrial fibrillation with rapid ventricular rate Sub therapeutic INR CAD status post PCI to RCA Chronic systolic congestive heart failure EF of 30-35% History of aortic stenosis status post aVR in August 2019 Chronic hypoxic respiratory failure due to COPD COPD not in acute exacerbation Hypertension Hyperlipidemia Obesity with BMI of 37.7 PLAN: Patient has been admitted for rapid ventricular rate, cardiology has discontinued his to [place] and started him on amiodarone. Patient had an echo performed in January 2020 showing ejection fraction of 30-35%. Patient's INR is subtherapeutic, we will adjust the dose of Coumadin accordingly. Continue with the rest of his current medication regimen. Overall prognosis is guarded secondary to chronic medical conditions. Further recommendations to follow depending on the progress of the patient.
[2020-04-17] MEDS: FUROSEMIDE 10 MG/ML 2 ML VIAL IV SCH ×2 (12:47→21:11)
[2020-04-17] MEDS ORDERED: WARFARIN 5 MG TAB PO ONE (18:00)
[2020-04-17 20:57] VITALS: RESP 18
[2020-04-17] MEDS: SPIRONOLACTONE 25 MG TAB PO SCH (21:10)
[2020-04-17] MEDS: ATORVASTATIN 40 MG TAB PO SCH (21:11)
[2020-04-18 07:22] LABS: Basophils % (A) 1 %; Eosinophils # (A) 0.1 k/uL (0-0.7); Eosinophils % (A) 2 %; HCT 41.7 % (39.0-53.0); HGB 13.4 gm/dL (13.0-17.5); Lymphocytes # (A) 1.4 k/uL (1.0-4.8); Lymphocytes % (A) 24 %; MCH 33.5 pg (25.0-35.0); MCV 104.4 fL (80.0-100.0); Macrocytosis Moderate; Mean Platelet Volume 7.3; Monocytes # (A) 0.5 k/uL (0-1.0); Monocytes % (A) 9 %; Neutrophils # (A) 3.4 k/uL (1.3-7.7); Neutrophils % (A) 61 %; Platelet Count 165 k/uL (150-450); RBC 3.99 m/uL (4.30-5.90); RDW 15.1 % (11.5-15.5); WBC 5.6 k/uL (3.8-10.6)
[2020-04-18 07:30] LABS: INR 2.2 (<1.2); Prothrombin Time 21.1 sec (9.0-12.0)
[2020-04-18 07:48] LABS: African American GFR (CKD) >90 (>60 ml/min/1.73 sqM); Anion Gap 4 mmol/L; Blood Urea Nitrogen 18 mg/dL (9-20); Calcium 8.6 mg/dL (8.4-10.2); Carbon Dioxide 35 mmol/L (22-30); Chloride 99 mmol/L (98-107); Glucose 104 mg/dL (74-99); Non-African American GFR(CKD) >90 (>60 ml/min/1.73 sqM); Potassium 3.7 mmol/L (3.5-5.1); Sodium 138 mmol/L (137-145)
[2020-04-18] MEDS: FUROSEMIDE 10 MG/ML 2 ML VIAL IV SCH (08:15)
[2020-04-18] MEDS: METOPROLOL SUCCINATE (ER) 100 MG TAB.ER.24H PO SCH (08:16)
[2020-04-18] MEDS: ASPIRIN 81 MG PO SCH (08:16)
[2020-04-18] MEDS: POTASSIUM CHLORIDE ER 10 MEQ TAB.ER.PRT PO SCH (08:16)
[2020-04-18] MEDS: AMIODARONE 200 MG TAB PO SCH (08:16)
--- NOTE | 2020-04-18 11:25 | P.PN ---
Subjective Progress Note Date: 04/18/20 CHIEF COMPLAINT: A. alcides with RVR HISTORY OF PRESENT ILLNESS: 04/17/2020 This is a 75-year-old male with a past medical history significant for atrial fibrillation, coronary artery disease, COPD, diabetes mellitus, hypertension, and hyperlipidemia. Patient follows in the office with Dr. Nguyễn. We have been asked to see the patient in consultation for Lonny mcgrath. Patient states he had an appointment at the [facility] yesterday for a follow-up on some lab work. He states when he was there they took his vital signs and his heart rate was found to be in the 130s to 140s. The patient denied feeling any palpitations. He denied any chest pain. He states he is short of breath at baseline but it has been worse over the last 3 days. 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 He spoke with Dr. Nguyễn yesterday who recommended that the patient come to the emergency room for further evaluation. Patient remains in atrial fibrillation this morning with heart rates in the low 100s. He states his shortness of breath has improved. He reports that he was started on digoxin about 3 months ago. Echocardiogram completed in January 2020 revealed ejection fraction 30-35%. Patient underwent cardiac catheterization in May 2019 revealing stable coronary artery disease with a patent stent to the RCA 04/18/2020 Patient examined this morning at the bedside. Patient was started on amiodarone yesterday. Patient remains in atrial fibrillation with controlled ventricular rates. Blood pressure 125/76. INR 2.2. He was started on IV Lasix yesterday per internal medicine. PHYSICAL EXAM: VITAL SIGNS: Reviewed. GENERAL: Well-developed in no acute distress. HEENT: Head is normocephalic. Pupils are equal, round. Sclerae anicteric. Mucous membranes of the mouth are moist. Neck supple. No JVD or thyromegaly LUNGS: Respirations even and unlabored. Lungs diminished bilaterally HEART: Irregular rate and rhythm. S1 and S2 heard. ABDOMEN: Soft. Nondistended. Nontender. EXTREMITIES: Normal range of motion. No clubbing or cyanosis. Peripheral pulses intact. 1+ bilateral lower extremity edema NEUROLOGIC: Awake and alert. Oriented x 3. ASSESSMENT: Paroxysmal atrial fibrillation with RVR Shortness of breath Subtherapeutic INR Coronary artery disease with previous PCI to RCA History of aortic stenosis, status post TAVR, August 2019 at [facility] Chronic systolic congestive heart failure, EF 30-35% COPD with home O2 use Hypertension Hyperlipidemia Obesity: BMI 37.7 PLAN: Continue current cardiac medications Discontinue IV Lasix. Resume home dose of oral Lasix Patient may be discharged home today from a cardiac standpoint. He is to follow up outpatient with Dr. Nguyễn Nurse practitioner note has been reviewed by physician. Signing provider agrees with the documented findings, assessment, and plan of care. Objective - Vital Signs Vital signs: Vital Signs Temp 97.8 F 04/18/20 09:00 Pulse 93 04/18/20 09:00 Resp 18 04/18/20 09:00 BP 112/74 04/18/20 09:00 Pulse Ox 99 04/18/20 09:00 Intake & Output 04/17/20 04/18/20 04/18/20 18:59 06:59 18:59 Intake Total 1080 540 540 Output Total 1500 700 Balance 1080 -960 -160 Intake: Oral 1080 540 540 Output: Urine 1500 700 Other: Voiding Method Toilet # Voids 3 1 - Labs CBC & Chem 7: 04/18/20 06:58 04/18/20 06:58 Labs: Abnormal Lab Results - Last 24 Hours (Table) 04/18/20 04/18/20 04/18/20 Range/Units 06:58 06:58 06:58 RBC 3.99 L (4.30-5.90) m/uL MCV 104.4 H (80.0-100.0) fL PT 21.1 H (9.0-12.0) sec INR 2.2 H (<1.2) Carbon Dioxide 35 H (22-30) mmol/L Glucose 104 H (74-99) mg/dL
--- NOTE | 2020-04-18 15:16 | P.DS ---
Providers Date of admission: 04/16/20 20:32 Expected date of discharge: 04/18/20 Attending physician: Kd Bales MD Consults: 04/17/20 08:00 Consult Physician Routine Consulting Provider: Floresita Kinsey Consult Reason/Comments: A-Fib Do you want consulting provider notified?: Yes, Notify in am Primary care physician: Cook Hospital Course: Mr. Mccullough is a 75-year-old male with a past medical history of atrial fibrillation on anticoagulation now, asthma, coronary artery disease, COPD, diabetes mellitus, GERD, hypertension, hyperlipidemia, osteoarthritis, prostate disorder, obstructive sleep apnea, nephrolithiasis coming to the hospital with a chief complaint of palpitations. Patient states that he has a history of atrial fibrillation, for the past month he has been having issues with it. He has palpitations and that when he checked his heart rate it was in 130s and 140s so he is coming into the hospital for further evaluation. Patient denies having any chest pain, shortness of breath. He states that he has increased swelling of his lower extremities. Patient denies having any fevers chills or rigors. No cough or difficulty in breathing. Her mouth and nausea vomiting or diarrhea. No dysuria or hematuria. In the ER patient had an EKG done showing atrial fibrillation with rapid ventricular rate. He had labs showing white count of 5.3, hemoglobin 12.4, platelets 150. INR of 1.7. Sodium 141, potassium 3.9, chloride 102, bicarbonate 37, BUN 17, creatinine 0.6 Troponin less than 0.0123. Mata virus not detected. So patient was admitted for further evaluation. Hospital course: Patient had an echocardiogram done in 2019 showing ejection fraction of 30-35%. He underwent cardiac catheterization in May 2019 revealing stable coronary artery disease with patent stent to RCA. Patient was evaluated by cardiology, his digoxin has been discontinued. The patient has been started on amiodarone. Patient showed improvement in his heart rate and also his difficulty in breathing has improved. Patient was given IV Lasix and his lower extremity swelling has improved. Patient was cleared by cardiology to be discharged home. Vital Signs - 8 hr 04/18/20 09:00 Temperature 97.8 F Pulse Rate [ 93 Pulse Oximetery ] Respiratory 18 Rate Blood Pressure 112/74 [Right Arm] O2 Sat by Pulse 99 Oximetry PHYSICAL EXAMINATION: GENERAL: The patient is alert and oriented X3, in any acute distress. Well developed, well nourished. HEENT: Pupils are round and equally reacting to light. EOMI. No scleral icterus. No conjunctival pallor. Normocephalic, atraumatic. No pharyngeal erythema. No thyromegaly. CARDIOVASCULAR: Irregularly irregular PULMONARY: Chest is clear to auscultation, no wheezing or crackles. ABDOMEN: Soft, nontender. No organomegaly. Normal bowel sounds. MUSCULOSKELETAL: No joint swelling or deformity. EXTREMITIES: Bilateral pitting edema. NEUROLOGICAL: No focal neurological deficits on gross exam. SKIN: No rash DISCHARGE DIAGNOSIS Atrial fibrillation with rapid ventricular rate Sub therapeutic INR CAD status post PCI to RCA Chronic systolic congestive heart failure EF of 30-35% History of aortic stenosis status post aVR in August 2019 Chronic hypoxic respiratory failure due to COPD COPD not in acute exacerbation Hypertension Hyperlipidemia Obesity with BMI of 37.7 Discussed with the patient in detail about the interaction between Coumadin and amiodarone, increased risk of bleeding. As the dose of Coumadin has to be decreased, he is advised to check his PT/INR at least 2-3 times a week. Patient understands the consequences of this and said that he will make a cardiology appointment as soon as tomorrow morning. He was given a prescription to check his PT/INR on Sunday. Also discussed with him in case he starts to notice any kind of bleeding, to seek medical attention immediately. Patient is being discharged home, after being cleared by cardiology. More than 35 minutes spent towards the discharge of the patient. Patient Condition at Discharge: Stable Plan - Discharge Summary Discharge Rx Participant: No New Discharge Prescriptions: New Amiodarone [Cordarone] 200 mg PO BID 30 Days #60 tab Continue Montelukast [Singulair] 10 mg PO HS Tamsulosin [Flomax] 0.4 mg PO HS Spironolactone 12.5 mg PO HS Cholecalciferol [Vitamin D3 (25 Mcg = 1000 Iu)] 3,000 unit PO DAILY Loratadine [Claritin] 10 mg PO DAILY Fluticasone Nasal [place] [Flonase Nasal [place]] 2 spr EA NOSTRIL DAILY Tiotropium 18 Mcg/Puff [Spiriva] 1 cap INHALATION RT-HS Budesonide-Formot 160-4.5 Mcg [Symbicort 160-4.5 Mcg Inhaler] 2 puff INHALATION RT-BID Atorvastatin [Lipitor] 40 mg PO HS Solifenacin Succinate [Vesicare] 5 mg PO DAILY Cyclobenzaprine [Flexeril] 5 mg PO HS Aspirin EC [Ecotrin Low Dose] 81 mg PO DAILY Docusate [Colace] 100 mg PO TID Magnesium 250 mg PO BID Esomeprazole Magnesium [NexIUM] 40 mg PO DAILY Potassium Chloride 10 meq PO BID Ferrous Sulfate [Iron (65 MG Elemental)] 325 mg PO DAILY Furosemide [Lasix] 40 mg PO DAILY Albuterol Inhaler [Ventolin Hfa Inhaler] 1 puff INHALATION RT-Q4H PRN PRN Reason: Shortness Of Breath Ascorbic Acid [Vitamin C] 1,000 mg PO DAILY cycloSPORINE [Restasis] 1 drop BOTH EYES BID Metoprolol Succinate (ER) [Toprol XL] 100 mg PO DAILY #30 tab.er.24h allopurinoL [Zyloprim] 300 mg PO DAILY Cyanocobalamin (Vitamin B-12) [Vitamin B-12] 1,000 mcg PO DAILY Furosemide [Lasix] 20 mg PO HS Nitroglycerin Sl Tabs [Nitrostat] 0.4 mg SL Q5M PRN PRN Reason: Chest Pain Vitamin E 1,000 unit PO DAILY Warfarin [Coumadin] 2.5 mg PO SUMOTUWEFRSA@2100 Warfarin Sodium 5 mg PO TH@2100 Discontinued Digoxin [Digitek] 125 mcg PO DAILY Discharge Medication List Montelukast [Singulair] 10 mg PO HS 09/09/13 [History] Tamsulosin [Flomax] 0.4 mg PO HS 09/09/13 [History] Spironolactone 12.5 mg PO HS 04/03/14 [History] Cholecalciferol [Vitamin D3 (25 Mcg = 1000 Iu)] 3,000 unit PO DAILY 06/09/15 [History] Budesonide-Formot 160-4.5 Mcg [Symbicort 160-4.5 Mcg Inhaler] 2 puff INHALATION RT-BID 08/07/16 [History] Fluticasone Nasal [place] [Flonase Nasal [place]] 2 spr EA NOSTRIL DAILY 08/07/16 [History] Loratadine [Claritin] 10 mg PO DAILY 08/07/16 [History] Tiotropium 18 Mcg/Puff [Spiriva] 1 cap INHALATION RT-HS 08/07/16 [History] Atorvastatin [Lipitor] 40 mg PO HS 05/02/17 [History] Cyclobenzaprine [Flexeril] 5 mg PO HS 05/02/17 [History] Solifenacin Succinate [Vesicare] 5 mg PO DAILY 05/02/17 [History] Aspirin EC [Ecotrin Low Dose] 81 mg PO DAILY 09/12/17 [History] Docusate [Colace] 100 mg PO TID 05/30/19 [History] Albuterol Inhaler [Ventolin Hfa Inhaler] 1 puff INHALATION RT-Q4H PRN 10/03/19 [History] Ascorbic Acid [Vitamin C] 1,000 mg PO DAILY 10/03/19 [History] Esomeprazole Magnesium [NexIUM] 40 mg PO DAILY 10/03/19 [History] Ferrous Sulfate [Iron (65 MG Elemental)] 325 mg PO DAILY 10/03/19 [History] Furosemide [Lasix] 40 mg PO DAILY 10/03/19 [History] Magnesium 250 mg PO BID 10/03/19 [History] Potassium Chloride 10 meq PO BID 10/03/19 [History] cycloSPORINE [Restasis] 1 drop BOTH EYES BID 01/15/20 [History] Metoprolol Succinate (ER) [Toprol XL] 100 mg PO DAILY #30 tab.er.24h 01/18/20 [Rx] Cyanocobalamin (Vitamin B-12) [Vitamin B-12] 1,000 mcg PO DAILY 04/16/20 [History] Furosemide [Lasix] 20 mg PO HS 04/16/20 [History] Nitroglycerin Sl Tabs [Nitrostat] 0.4 mg SL Q5M PRN 04/16/20 [History] Vitamin E 1,000 unit PO DAILY 04/16/20 [History] Warfarin Sodium 5 mg PO TH@2100 04/16/20 [History] Warfarin [Coumadin] 2.5 mg PO SUMOTUWEFRSA@209904/16/20 [History] allopurinoL [Zyloprim] 300 mg PO DAILY 04/16/20 [History] Amiodarone [Cordarone] 200 mg PO BID 30 Days #60 tab 04/18/20 [Rx] Follow up Appointment(s)/Referral(s): Gundlapalli,Sivaji, MD [STAFF PHYSICIAN] - 1 Week [facility],Clinic [Primary Care Provider] - 1-2 days Activity/Diet/Wound Care/Special Instructions: Check INR in 2 days Discharge Disposition: HOME SELF-CARE
[2020-04-18 15:42] VITALS: BP 112/73; PULSE 73; TEMP 98
[2020-04-18] MEDS ORDERED: WARFARIN 2.5 MG TAB PO ONE (18:00)
[2020-04-18] MEDS ORDERED: FUROSEMIDE 20 MG TAB PO SCH (21:00)
[2020-04-19] MEDS ORDERED: FUROSEMIDE 40 MG TAB PO SCH (09:00)
== END 2020-04-18 17:02 | disposition home or self-care (01) ==
LOC: EC 18:40 → 1SOBS 20:32
PROVIDERS: ADMIT Internal Medicine; ATTEND Internal Medicine
DX: I48.0 Paroxysmal atrial fibrillation (principal); R79.1 Abnormal coagulation profile; I25.10 Atherosclerotic heart disease of native coronary artery without angina pectoris; I11.0 Hypertensive heart disease with heart failure; I50.22 Chronic systolic (congestive) heart failure; J96.11 Chronic respiratory failure with hypoxia; Z20.828 Contact with and (suspected) exposure to other viral communicable diseases; J44.9 Chronic obstructive pulmonary disease, unspecified; E11.9 Type 2 diabetes mellitus without complications; K21.9 Gastro-esophageal reflux disease without esophagitis; E78.5 Hyperlipidemia, unspecified; M19.90 Unspecified osteoarthritis, unspecified site; G47.33 Obstructive sleep apnea (adult) (pediatric); R00.2 Palpitations; R60.9 Edema, unspecified; Z95.5 Presence of coronary angioplasty implant and graft; Z95.2 Presence of prosthetic heart valve; I35.0 Nonrheumatic aortic (valve) stenosis; I42.9 Cardiomyopathy, unspecified; C61 Malignant neoplasm of prostate; E66.9 Obesity, unspecified; Z68.37 Body mass index [BMI] 37.0-37.9, adult; Z79.01 Long term (current) use of anticoagulants; Z79.51 Long term (current) use of inhaled steroids; Z79.82 Long term (current) use of aspirin; Z79.899 Other long term (current) drug therapy; Z87.442 Personal history of urinary calculi; H91.90 Unspecified hearing loss, unspecified ear; Z87.01 Personal history of pneumonia (recurrent); Z99.89 Dependence on other enabling machines and devices; Z99.81 Dependence on supplemental oxygen; Z90.49 Acquired absence of other specified parts of digestive tract; Z85.46 Personal history of malignant neoplasm of prostate; Z87.891 Personal history of nicotine dependence; Z88.8 Allergy status to other drugs, medicaments and biological substances; Z83.79 Family history of other diseases of the digestive system
CPT/HCPCS: 96375; 96376 ×2; 96374; 99285; 36415; 93005; 83880; 80053 ×2; 80048; 80162; 83735; 84484 ×2; 85025 ×3; 85610 ×3; 85730; 87635; 71046; G0378 ×3; J1940 ×2

== ENCOUNTER 2020-06-02 13:25 | Inpatient (IN) | payer MEDICARE, OTHER ==
[2020-06-02] MEDS ORDERED: ACETAMINOPHEN TAB 500 MG TAB PO STA (14:05)
[2020-06-02] MEDS ORDERED: SODIUM CHLORIDE 0.9% 1,000 ML IV STA (14:05)
[2020-06-02] MEDS ORDERED: METOPROLOL TARTRATE 5 MG/5 ML VIAL IVP STA ×2 (14:07→14:49)
--- NOTE | 2020-06-02 14:07 | ED ---
General Adult HPI - General Chief complaint: Shortness of Breath Stated complaint: SOB Time Seen by Provider: 06/02/20 13:32 Source: patient, EMS Mode of arrival: EMS Limitations: no limitations - History of Present Illness Initial comments: Dictation was produced using [employer] dictation software. please excuse any grammatical, word or spelling errors. This patient was cared for during a federal and state declared state of emergency secondary to Covid 19 Chief Complaint: 75-year-old male presents with chief complaint of dyspnea and fatigue History of Present Illness: 75-year-old male yesterday he got his second dose of the Covid vaccinations. Over the last 24-48 hours has been having worsening symptoms of shortness of breath, nonproductive cough. Patient has a history of COPD and atrial fibrillation. He takes Coumadin, amiodarone and metoprolol. Patient has any fever, chills or night sweats. Denies any sore throat runny nose. Patient feels slightly weak all over his body. He was recovering at home when his daughter was concerned about his well-being patient is brought to the emergency department. The ROS documented in this emergency department record has been reviewed and confirmed by me. Those systems with pertinent positive or negative responses have been documented in the HPI. All other systems are other negative and/or noncontributory. PHYSICAL EXAM: General Impression: Alert and oriented x3, not in acute distress HEENT: Normocephalic atraumatic, extra-ocular movements intact, pupils equal and reactive to light bilaterally, mucous membranes moist. Cardiovascular: Irregularly irregular, tachycardic Chest: Able to complete full sentences, no retractions, no tachypnea, lungs clear to auscultation bilaterally Abdomen: abdomen soft, non-tender, non-distended, no organomegaly Musculoskeletal: Pulses present and equal in all extremities, no peripheral edema Motor: no focal deficits noted Neurological: CN II-XII grossly intact, no focal motor or sensory deficits noted Skin: Intact with no visualized rashes Psych: Normal affect and mood ED course: 75-year-old male with multiple comorbidities presents emergency department for fatigue and dyspnea. Vital signs upon arrival shows him to 100. 8, heart rate of 122, rest of vital signs within acceptable limits. Laboratory evaluation obtained. CBC is unremarkable. Metabolic panel is negative. Troponins negative. Brain natruretic peptide is negative. Chest x- ray shows possible CHF versus interstitial pneumonia. Patient reevaluated bed side states she feels significantly weak. Patient was given 2 doses of IV metoprolol with improvement of his heart rate. However he still does become tachycardic with mild exertion. Patient given oral metoprolol. Patient be admitted for cardiac monitoring. Cardiology will be consulted. Case discussed with Michelle Poole who is accepting the patient on behalf of [facility] hospitalist group. EKG interpretation: Ventricular rate 1:30, A. fib with RVR, QRS 100, QTC 494. No VA prolongation, no QTC prolongation, no ST or T-wave changes noted. Overall, this EKG is unremarkable - Related Data Home Medications Medication Instructions Recorded Confirmed Montelukast [Singulair] 10 mg PO HS 09/09/13 04/16/20 Tamsulosin [Flomax] 0.4 mg PO HS 09/09/13 04/16/20 Spironolactone 12.5 mg PO HS 04/03/14 04/16/20 Cholecalciferol [Vitamin D3 (25 3,000 unit PO DAILY 06/09/15 04/16/20 Mcg = 1000 Iu)] Budesonide-Formot 160-4.5 Mcg 2 puff INHALATION RT-BID 08/07/16 04/16/20 [Symbicort 160-4.5 Mcg Inhaler] Fluticasone Nasal [place] [Flonase 2 spr EA NOSTRIL DAILY 08/07/16 04/16/20 Nasal [place]] Loratadine [Claritin] 10 mg PO DAILY 08/07/16 04/16/20 Tiotropium 18 Mcg/Puff [Spiriva] 1 cap INHALATION RT-HS 08/07/16 04/16/20 Atorvastatin [Lipitor] 40 mg PO HS 05/02/17 04/16/20 Cyclobenzaprine [Flexeril] 5 mg PO HS 05/02/17 04/16/20 Solifenacin Succinate [Vesicare] 5 mg PO DAILY 05/02/17 04/16/20 Aspirin EC [Ecotrin Low Dose] 81 mg PO DAILY 09/12/17 04/16/20 Docusate [Colace] 100 mg PO TID 05/30/19 04/16/20 Albuterol Inhaler [Ventolin Hfa 1 puff INHALATION RT-Q4H PRN 10/03/19 04/16/20 Inhaler] Ascorbic Acid [Vitamin C] 1,000 mg PO DAILY 10/03/19 04/16/20 Esomeprazole Magnesium [NexIUM] 40 mg PO DAILY 10/03/19 04/16/20 Ferrous Sulfate [Iron (65 MG 325 mg PO DAILY 10/03/19 04/16/20 Elemental)] Furosemide [Lasix] 40 mg PO DAILY 10/03/19 04/16/20 Magnesium 250 mg PO BID 10/03/19 04/16/20 Potassium Chloride 10 meq PO BID 10/03/19 04/16/20 cycloSPORINE [Restasis] 1 drop BOTH EYES BID 01/15/20 04/16/20 Cyanocobalamin (Vitamin B-12) 1,000 mcg PO DAILY 04/16/20 04/16/20 [Vitamin B-12] Furosemide [Lasix] 20 mg PO HS 04/16/20 04/16/20 Nitroglycerin Sl Tabs [Nitrostat] 0.4 mg SL Q5M PRN 04/16/20 04/16/20 Vitamin E 1,000 unit PO DAILY 04/16/20 04/16/20 Warfarin Sodium 5 mg PO TH@209904/16/20 04/16/20 Warfarin [Coumadin] 2.5 mg PO SUMOTUWEFRSA@209904/16/20 04/16/20 allopurinoL [Zyloprim] 300 mg PO DAILY 04/16/20 04/16/20 Previous Rx's Medication Instructions Recorded Metoprolol Succinate (ER) [Toprol 100 mg PO DAILY #30 tab.er.24h 01/18/20 XL] Amiodarone [Cordarone] 200 mg PO BID 30 Days #60 tab 04/18/20 Allergies Allergy/AdvReac Type Severity Reaction Status Date / Time Venpghs-Zpa-Onf Reductase Allergy Mild Rash/Hives Verified 06/02/20 13:33 Inhibitor Review of Systems ROS Statement: Those systems with pertinent positive or pertinent negative responses have been documented in the HPI. ROS Other: All systems not noted in ROS Statement are negative. Past Medical History Past Medical History: Atrial Fibrillation, Asthma, Coronary Artery Disease (CAD), Cancer, COPD, Diabetes Mellitus, GERD/Reflux, Hearing Disorder / Deafness, Hyperlipidemia, Hypertension, Osteoarthritis (OA), Pneumonia, Prostate Disorder, Sleep Apnea/CPAP/BIPAP, Vascular Disorder Additional Past Medical History / Comment(s): Prostate cancer. see Dr Nguyễn H&P FOR CARDIAC HISTORY , O2 2L PRN AND AT BEDTIME , hiatal hernia, kidney stones, "bad back", past a fib cardiomyopathy aortic stenosis, PRE- DIABETIC -DIET CONTROLLED, aortic valve replacment 09/03 History of Any Multi-Drug Resistant Organisms: None Reported Past Surgical History: Ablation, Bladder Surgery, Cholecystectomy, Heart Catheterization With Stent, Hernia Repair, Tonsillectomy Additional Past Surgical History / Comment(s): CARDIOVERSION, MUKESH FEMORAL BYPASS SURGERY, MUKESH.inguinal hernia, UMBILICAL HERNIA REPAIR, surgery for PILONIDAL CYST, mukesh CATARACTS, ARCH/AORTOGRAM, cystoscopy for KIDNEY STONE REMOVAL x 3, LT CAROTID ENDARTECTOMY. BRAYDEN 05/10/17, 06/06, 06/04/19, 2 stents to the RCA Past Anesthesia/Blood Transfusion Reactions: No Reported Reaction Date of Last Stent Placement:: 06/06/18 Past Psychological History: No Psychological Hx Reported Smoking Status: Former smoker Past Alcohol Use History: Daily Past Drug Use History: None Reported - Past Family History Father Family Medical History: Liver Disease Mother Family Medical History: No Reported History Additional Family Medical History / Comment(s): . General Exam Limitations: no limitations Course Vital Signs 06/02/20 06/02/20 13:26 15:03 Temperature 100.8 F H Pulse Rate 122 H 121 H Respiratory 20 20 Rate Blood Pressure 142/67 113/66 O2 Sat by Pulse 100 94 L Oximetry Medical Decision Making - Lab Data Result diagrams: 06/02/20 14:25 06/02/20 14:25 Lab Results 06/02/20 06/02/20 06/02/20 Range/Units 14:25 14:25 14:25 WBC 5.7 (3.8-10.6) k/uL RBC 4.07 L (4.30-5.90) m/uL Hgb 13.6 (13.0-17.5) gm/dL Hct 41.9 (39.0-53.0) % MCV 103.1 H (80.0-100.0) fL MCH 33.5 (25.0-35.0) pg MCHC 32.5 (31.0-37.0) g/dL RDW 14.9 (11.5-15.5) % Plt Count 132 L (150-450) k/uL MPV 8.1 Neutrophils % 89 % Lymphocytes % 6 % Monocytes % 3 % Eosinophils % 1 % Basophils % 1 % Neutrophils # 5.0 (1.3-7.7) k/uL Lymphocytes # 0.3 L (1.0-4.8) k/uL Monocytes # 0.2 (0-1.0) k/uL Eosinophils # 0.1 (0-0.7) k/uL Basophils # 0.0 (0-0.2) k/uL Macrocytosis Slight Sodium 138 (137-145) mmol/L Potassium 4.9 (3.5-5.1) mmol/L Chloride 96 L (98-107) mmol/L Carbon Dioxide 33 H (22-30) mmol/L Anion Gap 9 mmol/L BUN 17 (9-20) mg/dL Creatinine 0.78 (0.66-1.25) mg/dL Est GFR (CKD-EPI)AfAm >90 (>60 ml/min/1.73 sqM) Est GFR (CKD-EPI)NonAf 89 (>60 ml/min/1.73 sqM) Glucose 147 H (74-99) mg/dL Calcium 9.0 (8.4-10.2) mg/dL Magnesium 2.0 (1.6-2.3) mg/dL Total Bilirubin 1.0 (0.2-1.3) mg/dL AST 35 (17-59) U/L ALT 26 (4-49) U/L Alkaline Phosphatase 69 (38-126) U/L Troponin I <0.012 (0.000-0.034) ng/mL NT-Pro-B Natriuret Pep pg/mL Total Protein 7.9 (6.3-8.2) g/dL Albumin 4.2 (3.5-5.0) g/dL Coronavirus (PCR) (Not Detectd) 06/02/20 06/02/20 Range/Units 14:25 14:43 WBC (3.8-10.6) k/uL RBC (4.30-5.90) m/uL Hgb (13.0-17.5) gm/dL Hct (39.0-53.0) % MCV (80.0-100.0) fL MCH (25.0-35.0) pg MCHC (31.0-37.0) g/dL RDW (11.5-15.5) % Plt Count (150-450) k/uL MPV Neutrophils % % Lymphocytes % % Monocytes % % Eosinophils % % Basophils % % Neutrophils # (1.3-7.7) k/uL Lymphocytes # (1.0-4.8) k/uL Monocytes # (0-1.0) k/uL Eosinophils # (0-0.7) k/uL Basophils # (0-0.2) k/uL Macrocytosis Sodium (137-145) mmol/L Potassium (3.5-5.1) mmol/L Chloride (98-107) mmol/L Carbon Dioxide (22-30) mmol/L Anion Gap mmol/L BUN (9-20) mg/dL Creatinine (0.66-1.25) mg/dL Est GFR (CKD-EPI)AfAm (>60 ml/min/1.73 sqM) Est GFR (CKD-EPI)NonAf (>60 ml/min/1.73 sqM) Glucose (74-99) mg/dL Calcium (8.4-10.2) mg/dL Magnesium (1.6-2.3) mg/dL Total Bilirubin (0.2-1.3) mg/dL AST (17-59) U/L ALT (4-49) U/L Alkaline Phosphatase (38-126) U/L Troponin I (0.000-0.034) ng/mL NT-Pro-B Natriuret Pep 760 pg/mL Total Protein (6.3-8.2) g/dL Albumin (3.5-5.0) g/dL Coronavirus (PCR) Not Detected (Not Detectd) Disposition Clinical Impression: Atrial fibrillation with RVR Disposition: ADMITTED IP TO THIS HOSP Condition: Fair Referrals: [facility],Clinic [Primary Care Provider] - 1-2 days Decision Time: 15:14
[2020-06-02 14:29] LABS: Basophils % (A) 1 %; Eosinophils # (A) 0.1 k/uL (0-0.7); Eosinophils % (A) 1 %; HCT 41.9 % (39.0-53.0); HGB 13.6 gm/dL (13.0-17.5); Lymphocytes # (A) 0.3 k/uL (1.0-4.8); Lymphocytes % (A) 6 %; MCH 33.5 pg (25.0-35.0); MCHC 32.5 g/dL (31.0-37.0); MCV 103.1 fL (80.0-100.0); Macrocytosis Slight; Mean Platelet Volume 8.1; Monocytes # (A) 0.2 k/uL (0-1.0); Monocytes % (A) 3 %; Neutrophils % (A) 89 %; Platelet Count 132 k/uL (150-450); RBC 4.07 m/uL (4.30-5.90); RDW 14.9 % (11.5-15.5); WBC 5.7 k/uL (3.8-10.6)
--- NOTE | 2020-06-02 14:30 | XR ---
EXAMINATION TYPE: XR chest 1V portable DATE OF EXAM: 06/02/2020 COMPARISON: 04/16/2020 HISTORY: Shortness of breath TECHNIQUE: Single frontal view of the chest is obtained. FINDINGS: Hyperinflation suggests COPD and the heart is enlarged. Diffuse interstitial pattern. Retr ocardiac density compatible with hiatal hernia. Atherosclerotic change aorta. Tiny bilateral pleural effusions. Pulmonary arteries prominent could represent pulmonary arterial hypertension. IMPRESSION: 1. Correlate for CHF otherwise consider interstitial pneumonia.
[2020-06-02 14:39] LABS: ALT 26 U/L (4-49); AST 35 U/L (17-59); African American GFR (CKD) >90 (>60 ml/min/1.73 sqM); Albumin 4.2 g/dL (3.5-5.0); Alkaline Phosphatase 69 U/L (38-126); Anion Gap 9 mmol/L; Blood Urea Nitrogen 17 mg/dL (9-20); Carbon Dioxide 33 mmol/L (22-30); Chloride 96 mmol/L (98-107); Glucose 147 mg/dL (74-99); Non-African American GFR(CKD) 89 (>60 ml/min/1.73 sqM); Sodium 138 mmol/L (137-145); Total Protein 7.9 g/dL (6.3-8.2)
[2020-06-02 14:41] LABS: Potassium 4.9 mmol/L (3.5-5.1)
[2020-06-02] MEDS ORDERED: HYDROcodone/APAP 5-325MG 1 EACH TAB PO STA (14:49)
[2020-06-02] MEDS ORDERED: ACETAMINOPHEN TAB 325 MG TAB PO PRN (15:11)
[2020-06-02] MEDS ORDERED: HYDROcodone/APAP 5-325MG 1 EACH TAB PO PRN (15:11)
[2020-06-02] MEDS ORDERED: METOPROLOL TARTRATE 50 MG TAB PO STA (15:11)
[2020-06-02] MEDS ORDERED: NALOXONE 0.4 MG/ML 1 ML VIAL IV PRN (15:11)
[2020-06-02 15:36] LABS: INR 3.4 (<1.2)
[2020-06-02] MEDS: SODIUM CHLORIDE 0.9% 1,000 ML IV SCH (17:44)
[2020-06-02] MEDS ORDERED: WARFARIN 0.5 MG TAB PO ONE (18:00)
[2020-06-02] MEDS ORDERED: NITROGLYCERIN SL TABS 0.4 MG TAB SUBLINGUAL PRN (18:07)
[2020-06-02] MEDS ORDERED: FUROSEMIDE 40 MG TAB PO SCH (18:30)
[2020-06-02] MEDS: SPIRONOLACTONE 25 MG TAB PO SCH (21:20)
[2020-06-02] MEDS: CYANOCOBALAMIN 500 MCG TAB PO SCH (21:20)
[2020-06-02] MEDS: CYCLOBENZAPRINE 5 MG TAB PO SCH (21:20)
[2020-06-02] MEDS: AMIODARONE 200 MG TAB PO SCH (21:20)
[2020-06-02] MEDS: ATORVASTATIN 40 MG TAB PO SCH (21:20)
[2020-06-02] MEDS: TAMSULOSIN 0.4 MG CAP.ER.24H PO SCH (21:20)
[2020-06-02] MEDS: MAGNESIUM OXIDE 400 MG TAB PO SCH (21:20)
[2020-06-02] MEDS: DOCUSATE 100 MG CAP PO SCH (21:20)
[2020-06-02] MEDS: MONTELUKAST 10 MG TAB PO SCH (21:21)
[2020-06-02] MEDS: SYMBICORT 160-4.5 MCG INHALER INHALATION SCH (21:52)
[2020-06-02] MEDS: IPRATROPIUM 0.5 MG/2.5 ML NEBU INHALATION SCH (21:55)
[2020-06-02] MEDS: cycloSPORINE 0.05% OPHTH 0.4 ML DROPERETTE BOTH EYES SCH (22:54)
[2020-06-03] MEDS: PANTOPRAZOLE 40 MG TABLET PO SCH (06:29)
[2020-06-03 07:49] LABS: INR 2.6 (<1.2); Prothrombin Time 25.4 sec (9.0-12.0)
[2020-06-03] MEDS: SYMBICORT 160-4.5 MCG INHALER INHALATION SCH ×2 (08:29→21:20)
[2020-06-03] MEDS: IPRATROPIUM 0.5 MG/2.5 ML NEBU INHALATION SCH ×4 (08:29→21:20)
[2020-06-03] MEDS ORDERED: FUROSEMIDE 80 MG TAB PO SCH (09:00)
--- NOTE | 2020-06-03 09:11 | P.HPIM ---
History of Present Illness Mr. Mccullough is a 75-year-old male with a past medical history of atrial fibrillation on anticoagulation now, asthma, coronary artery disease, COPD, diabetes mellitus, GERD, hypertension, hyperlipidemia, osteoarthritis, prostate disorder, obstructive sleep apnea, Presents because of dyspnea per ED triage however when I saw the patient he was lying in chair with legs elevated. His main complaint that made him come to the hospital this acute generalized weakness as he could not stand up from his incliner yesterday, he feels weak all over his body. However he denies dyspnea or coughing for me he denies chest pain. He got his buckley virus shot 4 days ago and he developed some diarrhea but he doesn't have any loose stool over the last 2 days. No urinary symptoms like no dysuria or change in frequency or urgency. No recent upper respiratory tract symptoms. No sick contacts. No dizziness or headache or unilateral weakness or numbness. No blurred vision or slurred speech. He is on 2 L oxygen at home, his surgical consultant Dr. 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 He sees Dr. Nguyễn his inoculator On admission he has low-grade fever of 100.8, he has tachycardia 122, blood pressure 149/66. Last night his blood pressure was 86/56 and currently 102/67 He was 100% on 5 L nonrebreather, currently is a 95% with related to her oxygen. labs showing normal WBC at 5.7K, rest of the CBC is unremarkable, normal hemoglobin at 13.6 and low platelets 132K. INR is elevated at 3.4. Electrolytes and creatinine are within normal limits, liver enzymes not elevated. Troponin is negative less than 0.012. ProBNP is 760. And buckley virus not detected. Chest x-ray: Correlate for CHF versus interstitial pneumonia EKG showing atrial fibrillation's with RVR at 130. In the emergency room he received metoprolol, 1 L of normal Review of Systems CONSTITUTIONAL: No fever, no malaise, no fatigue. HEENT: No recent visual problems or hearing problems. Denied any sore throat. CARDIOVASCULAR: No orthopnea, PND, no palpitations, no syncope. PULMONARY: No shortness of breath, no cough, no hemoptysis. GASTROINTESTINAL: No diarrhea, no nausea, no vomiting, no abdominal pain. Normoactive bowel sounds. NEUROLOGICAL: No headaches, no weakness, no numbness. HEMATOLOGICAL: Denies any bleeding or petechiae. GENITOURINARY: Denies any burning micturition, frequency, or urgency. MUSCULOSKELETAL/RHEUMATOLOGICAL: Denies any joint pain, swelling, or any muscle pain. ENDOCRINE: Denies any polyuria or polydipsia. Past Medical History Past Medical History: Atrial Fibrillation, Asthma, Coronary Artery Disease (CAD), Cancer, COPD, Diabetes Mellitus, GERD/Reflux, Hearing Disorder / Deafness, Hyperlipidemia, Hypertension, Osteoarthritis (OA), Pneumonia, Prostate Disorder, Sleep Apnea/CPAP/BIPAP, Vascular Disorder Additional Past Medical History / Comment(s): Prostate cancer. see Dr Nguyễn H&P FOR CARDIAC HISTORY , O2 2L PRN AND AT BEDTIME , hiatal hernia, kidney stones, "bad back", past a fib cardiomyopathy aortic stenosis, PRE- DIABETIC -DIET CONTROLLED, aortic valve replacment 09/03 History of Any Multi-Drug Resistant Organisms: None Reported Past Surgical History: Ablation, Bladder Surgery, Cholecystectomy, Heart Catheterization With Stent, Hernia Repair, Tonsillectomy Additional Past Surgical History / Comment(s): CARDIOVERSION, MUKESH FEMORAL BYPASS SURGERY, MUKESH.inguinal hernia, UMBILICAL HERNIA REPAIR, surgery for PILONIDAL CYST, mukesh CATARACTS, ARCH/AORTOGRAM, cystoscopy for KIDNEY STONE REMOVAL x 3, LT CAROTID ENDARTECTOMY. BRAYDEN 05/10/17, 06/06, 06/04/19, 2 stents to the RCA Past Anesthesia/Blood Transfusion Reactions: No Reported Reaction Date of Last Stent Placement:: 06/06/18 Smoking Status: Former smoker - Past Family History Father Family Medical History: Liver Disease Mother Family Medical History: No Reported History Additional Family Medical History / Comment(s): . Medications and Allergies Home Medications Medication Instructions Recorded Confirmed Type Montelukast [Singulair] 10 mg PO HS 09/09/13 06/02/20 History Tamsulosin [Flomax] 0.4 mg PO HS 09/09/13 06/02/20 History Spironolactone 25 mg PO HS 04/03/14 06/02/20 History Budesonide-Formot 160-4.5 Mcg 2 puff INHALATION RT-BID 08/07/16 06/02/20 History [Symbicort 160-4.5 Mcg Inhaler] Fluticasone Nasal [place] [Flonase 2 spr EA NOSTRIL DAILY 08/07/16 06/02/20 History Nasal [place]] Loratadine [Claritin] 10 mg PO DAILY 08/07/16 06/02/20 History Tiotropium 18 Mcg/Puff [Spiriva] 1 cap INHALATION RT-HS 08/07/16 06/02/20 History Atorvastatin [Lipitor] 40 mg PO HS 05/02/17 06/02/20 History Solifenacin Succinate [Vesicare] 5 mg PO DAILY 05/02/17 06/02/20 History Aspirin EC [Ecotrin Low Dose] 81 mg PO DAILY 09/12/17 06/02/20 History Docusate [Colace] 200 mg PO DAILY 05/30/19 06/02/20 History Esomeprazole Magnesium [NexIUM] 40 mg PO DAILY 10/03/19 06/02/20 History Ferrous Sulfate [Iron (65 MG 325 mg PO DAILY 10/03/19 06/02/20 History Elemental)] Furosemide [Lasix] 80 mg PO DAILY 10/03/19 06/02/20 History Magnesium 250 mg PO BID 10/03/19 06/02/20 History Potassium Chloride 10 meq PO BID 10/03/19 06/02/20 History cycloSPORINE [Restasis] 1 drop BOTH EYES BID 01/15/20 06/02/20 History Metoprolol Succinate (ER) [Toprol 100 mg PO DAILY #30 tab.er.24h 01/18/20 06/02/20 Rx XL] Furosemide [Lasix] 40 mg PO HS 04/16/20 06/02/20 History Nitroglycerin Sl Tabs [Nitrostat] 0.4 mg SL Q5M PRN 04/16/20 06/02/20 History Warfarin Sodium 5 mg PO TH@209904/16/20 06/02/20 History Warfarin [Coumadin] 2.5 mg PO SUMOTUWEFRSA@209904/16/20 06/02/20 History allopurinoL [Zyloprim] 300 mg PO DAILY 04/16/20 06/02/20 History Amiodarone [Cordarone] 200 mg PO BID 06/02/20 06/02/20 History Ascorbic Acid [Vitamin C] 1,000 mg PO DAILY 06/02/20 06/02/20 History Cholecalciferol [Vitamin D3 (25 75 mcg PO DAILY 06/02/20 06/02/20 History Mcg = 1000 Iu)] Cyanocobalamin (Vitamin B-12) 2,500 mcg PO HS 06/02/20 06/02/20 History [Vitamin B-12] Cyclobenzaprine [Flexeril] 5 mg PO HS 06/02/20 06/02/20 History Docusate [Colace] 100 mg PO HS 06/02/20 06/02/20 History Allergies Allergy/AdvReac Type Severity Reaction Status Date / Time Bddbytl-Kat-[id number] Reductase Allergy Mild Rash/Hives Verified 06/02/20 16:35 Inhibitor Physical Exam Vitals: Vital Signs Temp Pulse Pulse Resp BP BP Pulse Ox 06/03/20 04:00 99.6 F 113 H 18 102/67 95 06/03/20 01:55 116 H 18 06/03/20 00:00 116 H 18 86/56 93 L 06/02/20 22:05 101 H 06/02/20 21:55 101 H 98 06/02/20 20:45 110 H 18 06/02/20 20:00 99.1 F 110 H 18 104/59 98 06/02/20 16:58 99 F 117 H 28 H 100/63 94 L 06/02/20 16:20 111 H 20 94 L 06/02/20 16:10 112 H 22 92/55 94 L 06/02/20 16:01 100.4 F H 06/02/20 16:00 110 H 19 95/59 94 L 06/02/20 15:50 118 H 16 95/59 94 L 06/02/20 15:40 124 H 16 93/61 95 06/02/20 15:30 110 H 20 113/66 96 06/02/20 15:20 122 H 19 113/66 06/02/20 15:10 113 H 20 113/66 06/02/20 15:03 121 H 20 113/66 94 L 06/02/20 15:01 120 H 18 110/71 72 L 06/02/20 13:26 100.8 F H 122 H 20 142/67 100 Intake and Output 06/02/20 06/03/20 06/03/20 22:59 06:59 14:59 Intake Total 776 400 Output Total 1400 650 Balance -624 -250 Intake: Intake, IV Titration 100 Amount Sodium Chloride 0.9% 1, 100 000 ml @ 20 mls/hr IV . Q24H [facility] Rx#:[id number] Oral 776 300 Output: Urine 1400 650 Uretheral (Reyes) 800 Other: Voiding Method Indwelling Catheter Indwelling Catheter Weight 117.934 kg 118.18 kg GENERAL: The patient is alert and oriented x3, not in any acute distress. Well developed, well nourished. HEENT: Pupils are round and equally reacting to light. EOMI. No scleral icterus. No conjunctival pallor. Normocephalic, atraumatic. No pharyngeal erythema. No thyromegaly. CARDIOVASCULAR: S1 and S2 present. No murmurs, rubs, or gallops. -PULMONARY: Chest is clear to auscultation, scattered expiratory wheezing all ov er with bilateral basal crackles ABDOMEN: Soft, nontender, nondistended, normoactive bowel sounds. No palpable organomegaly. MUSCULOSKELETAL: No joint swelling or deformity. -EXTREMITIES: No cyanosis, clubbing, . 3+ bilateral pitting leg edema NEUROLOGICAL: Gross neurological examination did not reveal any focal deficits. SKIN: No rashes. No petechiae Results CBC & Chem 7: 06/02/20 14:25 06/02/20 14:25 Labs: Abnormal Lab Results - Last 24 Hours (Table) 06/02/20 06/02/20 06/02/20 Range/Units 14:25 14:25 15:25 RBC 4.07 L (4.30-5.90) m/uL MCV 103.1 H (80.0-100.0) fL Plt Count 132 L (150-450) k/uL Lymphocytes # 0.3 L (1.0-4.8) k/uL PT 33.0 H (9.0-12.0) sec INR 3.4 H (<1.2) Chloride 96 L (98-107) mmol/L Carbon Dioxide 33 H (22-30) mmol/L Glucose 147 H (74-99) mg/dL Thrombosis Risk Factor Assmnt - Choose All That Apply Each Risk Factor Represents 2 Points: Age 61-74 years Thrombosis Risk Factor Assessment Total Risk Factor Score: 2 Thrombosis Risk Factor Assessment Level: Low Risk Assessment and Plan Assessment: Low-grade fever, with tachycardia. Patient meets SIR S criteria for sepsis . Possible interstitial pneumonia Atrial fibrillation with rapid ventricular rate Acute on chronic systolic CHF supra-therapeutic INR, coagulopathy secondary to warfarin Mild acute COPD exacerbation CAD status post PCI to RCA Chronic systolic congestive heart failure EF of 30-35% History of aortic stenosis status post aVR in August 2019 Chronic hypoxic respiratory failure due to COPD, on 2 L oxygen via [place] at home COPD not in acute exacerbation Hypertension Hyperlipidemia Obesity with BMI of 37.7 Plan: this is a pleasant 75 years old male who presents with A. fib, low-grade fever. Possible CHF. Continue with metoprolol, cardiology consult. Also start her on ceftriaxone and Zithromax. Send for sputum culture . Check hemoglobin A1c, procalcitonin and influenza. We'll start the patient on Lasix and small dose of steroids Labs and medication were reviewed.. Continue same treatment. Continue with symptomatic treatment. Resume home medication. Monitor lytes and vitals. DVT and GI prophylaxis. Further recommendations depends on the clinical course of the patient DVT prophylaxis: On warfarin GI Prophylaxis: Pepcid PT/OT: Pending Prognosis is guarded
[2020-06-03] MEDS: CHOLECALCIFEROL 25 MCG (1000 IU) TABLET PO SCH (09:28)
[2020-06-03] MEDS: ASCORBIC ACID 500 MG TAB PO SCH (09:28)
[2020-06-03] MEDS: ASPIRIN 81 MG PO SCH (09:28)
[2020-06-03] MEDS: AMIODARONE 200 MG TAB PO SCH ×2 (09:28→20:02)
[2020-06-03] MEDS: allopurinoL 300 MG TAB PO SCH (09:28)
[2020-06-03] MEDS: FERROUS SULFATE 325 MG TAB PO SCH (09:29)
[2020-06-03] MEDS: DOCUSATE 100 MG CAP PO SCH ×2 (09:29→20:02)
[2020-06-03] MEDS: TROSPIUM CHLORIDE 20 MG TABLET PO SCH (09:30)
[2020-06-03] MEDS: LORATADINE 10 MG TAB PO SCH (09:30)
[2020-06-03] MEDS: MAGNESIUM OXIDE 400 MG TAB PO SCH ×2 (09:30→20:02)
[2020-06-03] MEDS: METOPROLOL SUCCINATE (ER) 100 MG TAB.ER.24H PO SCH (09:30)
[2020-06-03] MEDS: FLUTICASONE 50MCG/SPRAY NASAL 16GM EA NOSTRIL SCH (09:31)
[2020-06-03] MEDS: cycloSPORINE 0.05% OPHTH 0.4 ML DROPERETTE BOTH EYES SCH ×2 (09:31→23:52)
[2020-06-03] MEDS: AZITHROMYCIN 500 MG in SODIUM CHLORIDE 0.9% 250 ML IVPB SCH (10:52)
--- NOTE | 2020-06-03 13:13 | P.CRDCN ---
History of Present Illness History of present illness: HISTORY OF PRESENTING ILLNESS This is a pleasant 75-year-old male past medical history significant for COPD, chronic atrial fibrillation on coumadin, atrial flutter, heart failure with reduced EF, coronary artery disease s/p PCI and stent placement in RCA, aortic stensosis s/p TAVR, hypertension, hyperlipidemia, and former smoker. He follows in the office with Dr. Nguyễn. We have been asked to see in consultation for A-fib with RVR. Patient is seen and examined this morning sitting in the chair, alert and oriented x 3, in no acute distress, on 3L nasal cannula O2. Patient received a Covid 19 vaccine on Sunday, Sunday patient started feeling fatigued, chills, shortness of breath, and nonproductive cough. Patient states he could not walk "even 2 inches" due to fatigue. Patient states he is on chronic 2L O2 at home. He states shortness of breath while sleeping has been going on for over a year he has been sleeping in a recliner chair. He states there is an increase in leg swelling, he does where compression stockings. He has been compliant with his medications. He denies palpitations, however, does notice intermittently on his heart rate monitor at home that he is irregular. He endorses no change in his diet, however does eat frozen meals frequently. Former smoker for 30 years, quit in 1993. Patient drinks 2 glasses of wine states each glass is a small wine tumbler 3/4 full. Patient denies chest pain, palpitations, nausea, vomiting, abdominal pain, headache, lightheadedness, or dizziness. On presentation to emergency department, Patient BP 142/67 Hr 122, SpO2 94 on 3L O2, and low grade temp 100.8. Laboratory data reviewed, Hemoglobin 13.6, platelets 132, 177, INR 3.4 on admission, INR 2.6 on 06/03, troponins negative x 2, BNP 760, Sodium 138, K 4.9, Mag, 2.0, sCr 0.78, Lactate 3.5, repeat Lactate 1.2, Covid-19- negative DIAGNOSTICS EKG reveals atrial fibrillation with RVR, heart rate 130. Telemetry tracings indicate atrial fibrillation, heart rate 110-116. Chest xray hyperinflation suggest COPD the heart is enlarged. Tiny bilateral pl eural effusions. Pulmonary arteries, and could represent pulmonary arterial hypertension.. Current cardiac medications include amiodarone 200 mg twice a day, aspirin 81 mg daily, atorvastatin 40 mg nightly, Lasix 80 mg daily, Lasix 40 mg nightly, metoprolol 100mg daily, warfarin 2.5mg (Vickers, Mo, Tu, We, Fr, Sa), warfarin 5mg Thur, magnesium 250 mg twice a day, potassium 10 meq twice a day. EKG 09/2019- sinus tachycardia EKG 10/2019 office- sinus rhythm EKG 01/2020- atrial flutter with 2:1 conduction EKG 04/2020- atrial fibrillation with RVR TTE 09/2017- EF 50-55% TTE 09/2019- EF 40-45% TTE 01/2020- EF 30-35% 05/2017- Right heart catheterization and left heart catheterization- revealed significant disease in RCA and stent placed 05/2019- Left heart catheterization- revealed stable CAD with patient stent in RCA. REVIEW OF SYSTEMS At the time of my exam: CONSTITUTIONAL: Endorses chills, Denies fever CARDIOVASCULAR: Endorses SOB, Denies chest pain, , orthopnea, PND or palpitations. RESPIRATORY: Denies cough. GASTROINTESTINAL: Denies abdominal pain, diarrhea, constipation, nausea or vo miting. MUSCULOSKELETAL: Denies myalgias. NEUROLOGIC: Denies numbness, tingling, headache or weakness. ENDOCRINE: Endorses fatigue, Denies weight change, polydipsia or polyurina. GENITOURINARY: Denies burning, hematuria or urgency with micturation. HEMATOLOGIC: Denies history of anemia or bleeding. PHYSICAL EXAMINATION Blood Pressure 103/63 heart rate 88 temp 99F, maintaining oxygen saturation on 3L nasal cannula. CONSTITUTIONAL: No apparent distress. HEENT: Head is normocephalic. Pupils are equal, round. Sclerae anicteric. Mucous membranes of the mouth are moist. +JVD. No carotid bruit. CHEST EXAMINATION: Lungs have diminished air exchange, bi-basilar crackles, wheezes throughout, No chest wall tenderness is noted on palpation or with deep breathing. HEART EXAMINATION: Irregular rate and rhythm. S1, S2 heard. No murmurs, gallops or rub. ABDOMEN: Soft, nontender. Positive bowel sounds. : Gotti present with dark yellow urine EXTREMITIES: 2+ peripheral pulses, 2+ Pitting edema and no calf tenderness. NEUROLOGIC EXAMINATION: Patient is awake, alert and oriented x3. ASSESSMENT COPD Chronic atrial fibrillation- Unknown at this time if persistent at this time. Patient states his home monitor has read HR irregular and regular, however, this cannot be always accurate. Heart failure with reduced EF Coronary artery disease s/p PCI and stent placement in RCA Aortic stensosis s/p TAVR Hypertension Hyperlipidemia PLAN -Unknown if patient is in persistent atrial fibrillation at this time. Will follow up with Dr. Beckman if patient should be on heart monitor to be placed in the office to confirm if patient is in persistent atrial fibrillation. Due to consistent decrease in ejection fraction, persistent atrial fibrillation could be causing worsening EF, and cardioversion could be of benefit. If chronic persistent, will most likely continue medical management. -Continue amiodarone 200mg BID for now -IV Lasix 40mg Q8hr for today- will most likely transition to PO tomorrow -Patient not on ACEI, BP on the lower end- will start lower dose lisinopril 2.5mg PO daily -Continue ASA, Atorvastatin, metoprolol, spironolactone, coumadin -Patients chills, fatigue most likely secondary to covid-19 vaccine- No need for antibiotics at this time -Discontinue gotti catheter -I/Os, daily weights -Will continue to monitor renal function and electrolytes Nurse Practitioner note has been reviewed, I agree with a documented findings and plan of care. Patient was seen and examined. Past Medical History Past Medical History: Atrial Fibrillation, Asthma, Coronary Artery Disease (CAD), Cancer, COPD, Diabetes Mellitus, GERD/Reflux, Hearing Disorder / Deafness, Hyperlipidemia, Hypertension, Osteoarthritis (OA), Pneumonia, Prostate Disorder, Sleep Apnea/CPAP/BIPAP, Vascular Disorder Additional Past Medical History / Comment(s): Prostate cancer. see Dr Nguyễn H&P FOR CARDIAC HISTORY , O2 2L PRN AND AT BEDTIME , hiatal hernia, kidney stones, "bad back", past a fib cardiomyopathy aortic stenosis, PRE- DIABETIC -DIET CONTROLLED, aortic valve replacment 09/03 History of Any Multi-Drug Resistant Organisms: None Reported Past Surgical History: Ablation, Bladder Surgery, Cholecystectomy, Heart Catheterization With Stent, Hernia Repair, Tonsillectomy Additional Past Surgical History / Comment(s): CARDIOVERSION, MUKESH FEMORAL BYPASS SURGERY, MUKESH.inguinal hernia, UMBILICAL HERNIA REPAIR, surgery for PILONIDAL CYST, mukesh CATARACTS, ARCH/AORTOGRAM, cystoscopy for KIDNEY STONE REMOVAL x 3, LT CAROTID ENDARTECTOMY. BRAYDEN 05/10/17, 06/06, 06/04/19, 2 stents to the RCA Past Anesthesia/Blood Transfusion Reactions: No Reported Reaction Date of Last Stent Placement:: 06/06/18 Smoking Status: Former smoker - Past Family History Father Family Medical History: Liver Disease Mother Family Medical History: No Reported History Additional Family Medical History / Comment(s): . Medications and Allergies Home Medications Medication Instructions Recorded Confirmed Type Montelukast [Singulair] 10 mg PO HS 09/09/13 06/02/20 History Tamsulosin [Flomax] 0.4 mg PO HS 09/09/13 06/02/20 History Spironolactone 25 mg PO HS 04/03/14 06/02/20 History Budesonide-Formot 160-4.5 Mcg 2 puff INHALATION RT-BID 08/07/16 06/02/20 History [Symbicort 160-4.5 Mcg Inhaler] Fluticasone Nasal [place] [Flonase 2 spr EA NOSTRIL DAILY 08/07/16 06/02/20 History Nasal [place]] Loratadine [Claritin] 10 mg PO DAILY 08/07/16 06/02/20 History Tiotropium 18 Mcg/Puff [Spiriva] 1 cap INHALATION RT-HS 08/07/16 06/02/20 History Atorvastatin [Lipitor] 40 mg PO HS 05/02/17 06/02/20 History Solifenacin Succinate [Vesicare] 5 mg PO DAILY 05/02/17 06/02/20 History Aspirin EC [Ecotrin Low Dose] 81 mg PO DAILY 09/12/17 06/02/20 History Docusate [Colace] 200 mg PO DAILY 05/30/19 06/02/20 History Esomeprazole Magnesium [NexIUM] 40 mg PO DAILY 10/03/19 06/02/20 History Ferrous Sulfate [Iron (65 MG 325 mg PO DAILY 10/03/19 06/02/20 History Elemental)] Furosemide [Lasix] 80 mg PO DAILY 10/03/19 06/02/20 History Magnesium 250 mg PO BID 10/03/19 06/02/20 History Potassium Chloride 10 meq PO BID 10/03/19 06/02/20 History cycloSPORINE [Restasis] 1 drop BOTH EYES BID 01/15/20 06/02/20 History Metoprolol Succinate (ER) [Toprol 100 mg PO DAILY #30 tab.er.24h 01/18/20 Rx XL] Furosemide [Lasix] 40 mg PO HS 04/16/20 06/02/20 History Nitroglycerin Sl Tabs [Nitrostat] 0.4 mg SL Q5M PRN 04/16/20 06/02/20 History Warfarin Sodium 5 mg PO TH@2100 04/16/20 06/02/20 History Warfarin [Coumadin] 2.5 mg PO SUMOTUWEFRSA@2100 04/16/20 06/02/20 History allopurinoL [Zyloprim] 300 mg PO DAILY 04/16/20 06/02/20 History Amiodarone [Cordarone] 200 mg PO BID 06/02/20 06/02/20 History Ascorbic Acid [Vitamin C] 1,000 mg PO DAILY 06/02/20 06/02/20 History Cholecalciferol [Vitamin D3 (25 75 mcg PO DAILY 06/02/20 06/02/20 History Mcg = 1000 Iu)] Cyanocobalamin (Vitamin B-12) 2,500 mcg PO HS 06/02/20 06/02/20 History [Vitamin B-12] Cyclobenzaprine [Flexeril] 5 mg PO HS 06/02/20 06/02/20 History Docusate [Colace] 100 mg PO HS 06/02/20 06/02/20 History Allergies Allergy/AdvReac Type Severity Reaction Status Date / Time [id number] Reductase Allergy Mild Rash/Hives Verified 06/02/20 16:35 Inhibitor Physical Exam Vitals: Vital Signs Temp Pulse Pulse Resp BP BP Pulse Ox 06/03/20 08:40 88 06/03/20 08:29 88 06/03/20 07:50 99.0 F 113 H 16 103/63 98 06/03/20 04:00 99.6 F 113 H 18 102/67 95 06/03/20 01:55 116 H 18 06/03/20 00:00 116 H 18 86/56 93 L 06/02/20 22:05 101 H 06/02/20 21:55 101 H 98 06/02/20 20:45 110 H 18 06/02/20 20:00 99.1 F 110 H 18 104/59 98 06/02/20 16:58 99 F 117 H 28 H 100/63 94 L 06/02/20 16:20 111 H 20 94 L 06/02/20 16:10 112 H 22 92/55 94 L 06/02/20 16:01 100.4 F H 06/02/20 16:00 110 H 19 95/59 94 L 06/02/20 15:50 118 H 16 95/59 94 L 06/02/20 15:40 124 H 16 93/61 95 06/02/20 15:30 110 H 20 113/66 96 06/02/20 15:20 122 H 19 113/66 06/02/20 15:10 113 H 20 113/66 06/02/20 15:03 121 H 20 113/66 94 L 06/02/20 15:01 120 H 18 110/71 72 L 06/02/20 13:26 100.8 F H 122 H 20 142/67 100 Intake and Output 06/02/20 06/03/20 06/03/20 22:59 06:59 14:59 Intake Total 776 400 240 Output Total 1400 650 Balance -624 -250 240 Intake: Intake, IV Titration 100 Amount Sodium Chloride 0.9% 1, 100 000 ml @ 20 mls/hr IV . Q24H [facility] Rx#:[id number] Oral 776 300 240 Output: Urine 1400 650 Uretheral (Gotti) 800 Other: Voiding Method Indwelling Catheter Indwelling Catheter Indwelling Catheter Weight 117.934 kg 118.18 kg Results 06/02/20 14:25 06/02/20 14:25 Cardiac Enzymes 06/02/20 06/02/20 06/03/20 Range/Units 14:25 14:25 07:07 AST 35 (17-59) U/L Troponin I <0.012 <0.012 (0.000-0.034) ng/mL Coagulation 06/02/20 06/03/20 Range/Units 15:25 07:07 PT 33.0 H 25.4 H (9.0-12.0) sec CBC 06/02/20 Range/Units 14:25 WBC 5.7 (3.8-10.6) k/uL RBC 4.07 L (4.30-5.90) m/uL Hgb 13.6 (13.0-17.5) gm/dL Hct 41.9 (39.0-53.0) % Plt Count 132 L (150-450) k/uL Comprehensive Metabolic Panel 06/02/20 Range/Units 14:25 Sodium 138 (137-145) mmol/L Potassium 4.9 (3.5-5.1) mmol/L Chloride 96 L (98-107) mmol/L Carbon Dioxide 33 H (22-30) mmol/L BUN 17 (9-20) mg/dL Creatinine 0.78 (0.66-1.25) mg/dL Glucose 147 H (74-99) mg/dL Calcium 9.0 (8.4-10.2) mg/dL AST 35 (17-59) U/L ALT 26 (4-49) U/L Alkaline Phosphatase 69 (38-126) U/L Total Protein 7.9 (6.3-8.2) g/dL Albumin 4.2 (3.5-5.0) g/dL Current Medications Generic Name Dose Route Start Last Admin Trade Name Freq PRN Reason Stop Dose Admin Acetaminophen 650 mg 06/02/20 15:11 Acetaminophen Tab 325 Mg Tab PO Q6HR PRN Mild Pain or Fever > 100.5 Hydrocodone Bitart/Acetaminophen 1 each 06/02/20 15:11 Hydrocodone/Apap 5-325mg 1 Each Tab PO Q4HR PRN Moderate Pain Allopurinol 300 mg 06/03/20 09:00 Allopurinol 300 Mg Tab PO DAILY [facility] Amiodarone HCl 200 mg 06/02/20 21:00 06/02/20 21:20 Amiodarone 200 Mg Tab PO 200 mg BID JULITA Administration Ascorbic Acid 1,000 mg 06/03/20 09:00 Ascorbic Acid 500 Mg Tab PO DAILY [facility] Aspirin 81 mg 06/03/20 09:00 Aspirin 81 Mg PO DAILY [facility] Atorvastatin Calcium 40 mg 06/02/20 21:00 06/02/20 21:20 Atorvastatin 40 Mg Tab PO 40 mg HS JULITA Administration Budesonide/Formoterol Fumarate 2 puff 06/02/20 20:00 06/03/20 08:29 Symbicort 160-4.5 Mcg Inhaler INHALATION 2 puff RT-BID JULITA Administration Cholecalciferol 75 mcg 06/03/20 09:00 Cholecalciferol 25 Mcg (1000 Iu) Tablet PO DAILY [facility] Cyanocobalamin 2,500 mcg 06/02/20 21:00 06/02/20 21:20 Cyanocobalamin 500 Mcg Tab PO 2,500 mcg HS [facility] Administration Cyclobenzaprine HCl 5 mg 06/02/20 21:00 06/02/20 21:20 Cyclobenzaprine 5 Mg Tab PO 5 mg HS [facility] Administration Cyclosporine 1 drops 06/02/20 21:00 06/02/20 22:54 Cyclosporine 0.05% Ophth 0.4 Ml [place] BOTH EYES Not Given BID [facility] Docusate Sodium 100 mg 06/02/20 21:00 06/02/20 21:20 Docusate 100 Mg Cap PO 100 mg HS [facility] Administration Docusate Sodium 200 mg 06/03/20 09:00 Docusate 100 Mg Cap PO DAILY [facility] Ferrous Sulfate 325 mg 06/03/20 09:00 Ferrous Sulfate 325 Mg Tab PO DAILY [facility] Fluticasone Propionate 2 spray 06/03/20 09:00 Fluticasone 50mcg/[place] Nasal 16gm EA NOSTRIL DAILY [facility] Furosemide 40 mg 06/03/20 16:00 Furosemide 10 Mg/Ml 4 Ml Vial IV Q8HR [facility] Sodium Chloride 1,000 mls @ 20 mls/hr 06/02/20 15:15 06/02/20 17:44 Saline 0.9% IV 20 mls/hr .Q24H [facility] Administration Ceftriaxone Sodium 1 gm/ 50 mls @ 100 mls/hr 06/03/20 09:00 Sodium Chloride IVPB Q24HR [facility] Azithromycin 500 mg/ Sodium 250 mls @ 250 mls/hr 06/03/20 09:00 Chloride IVPB DAILY [facility] Ipratropium [place] 0.5 mg 06/02/20 20:00 06/03/20 08:29 Ipratropium 0.5 Mg/2.5 Ml Nebu INHALATION 0.5 mg RT-QID [facility] Administration Lisinopril 2.5 mg 06/03/20 09:00 Lisinopril 2.5 Mg Tab PO DAILY [facility] Loratadine 10 mg 06/03/20 09:00 Loratadine 10 Mg Tab PO DAILY [facility] Magnesium Oxide 400 mg 06/02/20 21:00 06/02/20 21:20 Magnesium Oxide 400 Mg Tab PO 400 mg BID JULITA Administration Metoprolol Succinate 100 mg 06/03/20 09:00 Metoprolol Succinate (Er) 100 Mg Tab.Er.24h PO DAILY [facility] Miscellaneous Information 1 each 06/02/20 15:14 Warfarin Per Pharmacy MISCELLANE DIRECTED PRN Per Protocol Protocol Montelukast Sodium 10 mg 06/02/20 21:00 06/02/20 21:21 Montelukast 10 Mg Tab PO 10 mg HS JULITA Administration Naloxone HCl 0.2 mg 06/02/20 15:11 Naloxone 0.4 Mg/Ml 1 Ml Vial IV Q2M PRN Opioid Reversal Nitroglycerin 0.4 mg 06/02/20 18:07 Nitroglycerin Sl Tabs 0.4 Mg Tab SUBLINGUAL Q5M PRN Chest Pain Pantoprazole Sodium 40 mg 06/03/20 07:30 06/03/20 06:29 Pantoprazole 40 Mg Tablet PO 40 mg [id number] JULITA Administration Spironolactone 25 mg 06/02/20 21:00 06/02/20 21:20 Spironolactone 25 Mg Tab PO 25 mg HS [facility] Administration Tamsulosin HCl 0.4 mg 06/02/20 21:00 06/02/20 21:20 Tamsulosin 0.4 Mg Cap.Er.24h PO 0.4 mg HS [facility] Administration Trospium 20 mg 06/03/20 09:00 Trospium Chloride 20 Mg Tablet PO DAILY [facility] Warfarin Sodium 2.5 mg 06/03/20 18:00 Warfarin 2.5 Mg Tab PO 06/03/20 18:01 ONCE@1800 ONE Intake and Output 06/02/20 06/03/20 06/03/20 22:59 06:59 14:59 Intake Total 776 400 240 Output Total 1400 650 Balance -624 -250 240 Intake: Intake, IV Titration 100 Amount Sodium Chloride 0.9% 1, 100 000 ml @ 20 mls/hr IV . Q24H [facility] Rx#:[id number] Oral 776 300 240 Output: Urine 1400 650 Uretheral (Gotti) 800 Other: Voiding Method Indwelling Catheter Indwelling Catheter Indwelling Catheter Weight 117.934 kg 118.18 kg 06/02/20 14:25 06/02/20 14:25
[2020-06-03] MEDS: SODIUM CHLORIDE 0.9% 1,000 ML IV SCH (17:05)
[2020-06-03] MEDS: FUROSEMIDE 10 MG/ML 4 ML VIAL IV SCH ×2 (17:42→23:52)
[2020-06-03] MEDS ORDERED: WARFARIN 2.5 MG TAB PO ONE (18:00)
[2020-06-03] MEDS: MONTELUKAST 10 MG TAB PO SCH (20:02)
[2020-06-03] MEDS: CYANOCOBALAMIN 500 MCG TAB PO SCH (20:02)
[2020-06-03] MEDS: SPIRONOLACTONE 25 MG TAB PO SCH (20:02)
[2020-06-03] MEDS: CYCLOBENZAPRINE 5 MG TAB PO SCH (20:02)
[2020-06-03] MEDS: ATORVASTATIN 40 MG TAB PO SCH (20:02)
[2020-06-03] MEDS: TAMSULOSIN 0.4 MG CAP.ER.24H PO SCH (20:02)
[2020-06-04] MEDS: PANTOPRAZOLE 40 MG TABLET PO SCH (06:27)
--- NOTE | 2020-06-04 07:16 | XR ---
EXAMINATION TYPE: XR chest 1V DATE OF EXAM: 06/04/2020 HISTORY: Shortness of breath. COMPARISON: 06/02/2020 TECHNIQUE: Single view of the chest is submitted. FINDINGS: Demonstrated are scattered senescent parenchymal change. Patchy basilar infiltrates persist. Fixed hiatal hernia identified. The heart is stable. Hilar and mediastinal structures are within normal limits. Degenerative changes are seen of the dorsal spine. IMPRESSION: 1. Patchy basilar infiltrates persist.
[2020-06-04] MEDS: IPRATROPIUM 0.5 MG/2.5 ML NEBU INHALATION SCH ×4 (07:22→18:51)
[2020-06-04] MEDS: SYMBICORT 160-4.5 MCG INHALER INHALATION SCH ×2 (07:23→18:51)
[2020-06-04 07:30] LABS: African American GFR (CKD) >90 (>60 ml/min/1.73 sqM); Anion Gap 6 mmol/L; Blood Urea Nitrogen 22 mg/dL (9-20); Calcium 9.3 mg/dL (8.4-10.2); Carbon Dioxide 35 mmol/L (22-30); Chloride 93 mmol/L (98-107); Glucose 109 mg/dL (74-99); Non-African American GFR(CKD) 86 (>60 ml/min/1.73 sqM); Potassium 4.4 mmol/L (3.5-5.1); Sodium 134 mmol/L (137-145)
[2020-06-04 07:41] LABS: INR 1.7 (<1.2)
[2020-06-04 07:42] LABS: Prothrombin Time 17.1 sec (9.0-12.0)
[2020-06-04] MEDS: allopurinoL 300 MG TAB PO SCH (08:30)
[2020-06-04] MEDS: FERROUS SULFATE 325 MG TAB PO SCH (08:30)
[2020-06-04] MEDS: ASPIRIN 81 MG PO SCH (08:30)
[2020-06-04] MEDS: DOCUSATE 100 MG CAP PO SCH ×2 (08:30→21:51)
[2020-06-04] MEDS: CHOLECALCIFEROL 25 MCG (1000 IU) TABLET PO SCH (08:30)
[2020-06-04] MEDS: LORATADINE 10 MG TAB PO SCH (08:30)
[2020-06-04] MEDS: ASCORBIC ACID 500 MG TAB PO SCH (08:30)
[2020-06-04] MEDS: METOPROLOL SUCCINATE (ER) 100 MG TAB.ER.24H PO SCH (08:31)
[2020-06-04] MEDS: AMIODARONE 200 MG TAB PO SCH ×2 (08:31→21:51)
[2020-06-04] MEDS: MAGNESIUM OXIDE 400 MG TAB PO SCH ×2 (08:31→21:51)
[2020-06-04] MEDS: FUROSEMIDE 10 MG/ML 4 ML VIAL IV SCH ×2 (08:31→17:53)
[2020-06-04] MEDS: cycloSPORINE 0.05% OPHTH 0.4 ML DROPERETTE BOTH EYES SCH ×2 (08:32→21:52)
[2020-06-04] MEDS: TROSPIUM CHLORIDE 20 MG TABLET PO SCH (08:32)
[2020-06-04] MEDS: AZITHROMYCIN 500 MG in SODIUM CHLORIDE 0.9% 250 ML IVPB SCH (08:32)
[2020-06-04] MEDS: FLUTICASONE 50MCG/SPRAY NASAL 16GM EA NOSTRIL SCH (09:14)
[2020-06-04] MEDS ORDERED: LORazepam 1 MG TAB PO PRN (11:34)
--- NOTE | 2020-06-04 11:40 | P.PN ---
Subjective Mr. Mccullough is a 75-year-old male with a past medical history of atrial fibrillation on anticoagulation now, asthma, coronary artery disease, COPD, diabetes mellitus, GERD, hypertension, hyperlipidemia, osteoarthritis, prostate disorder, obstructive sleep apnea, Presents because of dyspnea per ED triage however when I saw the patient he was lying in chair with legs elevated. His main complaint that made him come to the hospital this acute generalized weakness as he could not stand up from his incliner yesterday, he feels weak all over his body. However he denies dyspnea or coughing for me he denies chest pain. He got his buckley virus shot 4 days ago and he developed some diarrhea but he doesn't have any loose stool over the last 2 days. No urinary symptoms like no dysuria or change in frequency or urgency. No recent upper respiratory tract symptoms. No sick contacts. No dizziness or headache or unilateral weakness or numbness. No blurred vision or slurred speech. He is on 2 L oxygen at home, his cmo Dr. 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 Last night his blood pressure was 86/56 and currently 102/67 He was 100% on 5 L nonrebreather, currently is a 95% with related to her oxygen. labs showing normal WBC at 5.7K, rest of the CBC is unremarkable, normal hemoglobin at 13.6 and low platelets 132K. INR is elevated at 3.4. Electrolytes and creatinine are within normal limits, liver enzymes not elevated. Troponin is negative less than 0.012. ProBNP is 760. And buckley virus not detected. Chest x-ray: Correlate for CHF versus interstitial pneumonia EKG showing atrial fibrillation's with RVR at 130. In the emergency room he received metoprolol, 1 L of normal 06/04/2020 Patient no significant respiratory distress distal tachypneic but he is improving. He still has bilateral basal crepitation. He is saturating 97% on 3 L oxygen via nasal cannula. Slightly tachycardic at 122. Blood pressure is 91/59. He has low-grade fever of 99.8 today. Labs carbon dioxide is elevated at 35. Sodium and creatinine are within the reference range. Hemoglobin A1c is 6.2%. Troponin is negative. TSH is normal at 1.7. Pro-calcitonin is normal at 0.09 Chest x-ray today: Persistent patchy basilar infiltrates Heart rate still slightly elevated around 122, he remains on amiodarone 200 mg a nd metoprolol 100 mg with cardiology on the case. Blood pressure is borderline We will discontinue the antibiotics of Zithromax and ceftriaxone and monitor his fever while off antibiotics. Keep Lasix and warfarin as per cardiology's recommendation. His INR is subtherapeutic and he will get 5 mg of Coumadin today. Patient is EX-smoker and we are going to monitor his lung function. Also he checks 1-2 beers daily. Add thiamine and Ativan as needed. Currently no signs of local withdrawal. Reyes catheter was discontinued and frequent order bladder scan Patient remains on Lasix 40 mg 3 times a day with cardiology on the case. Review of Systems CONSTITUTIONAL: No fever, no malaise, no fatigue. HEENT: No recent visual problems or hearing problems. Denied any sore throat. CARDIOVASCULAR: No orthopnea, PND, no palpitations, no syncope. PULMONARY: No shortness of breath, no cough, no hemoptysis. GASTROINTESTINAL: No diarrhea, no nausea, no vomiting, no abdominal pain. Normoactive bowel sounds. Active Medications Generic Name Dose Route Start Last Admin Trade Name Freq PRN Reason Stop Dose Admin Acetaminophen 650 mg 06/02/20 15:11 Acetaminophen Tab 325 Mg Tab PO Q6HR PRN Mild Pain or Fever > 100.5 Hydrocodone Bitart/Acetaminophen 1 each 06/02/20 15:11 Hydrocodone/Apap 5-325mg 1 Each Tab PO Q4HR PRN Moderate Pain Allopurinol 300 mg 06/03/20 09:00 06/04/20 08:30 Allopurinol 300 Mg Tab PO 300 mg DAILY JULITA Administration Amiodarone HCl 200 mg 06/02/20 21:00 06/04/20 08:31 Amiodarone 200 Mg Tab PO 200 mg BID JULITA Administration Ascorbic Acid 1,000 mg 06/03/20 09:00 06/04/20 08:30 Ascorbic Acid 500 Mg Tab PO 1,000 mg DAILY JULITA Administration Aspirin 81 mg 06/03/20 09:00 06/04/20 08:30 Aspirin 81 Mg PO 81 mg DAILY JULITA Administration Atorvastatin Calcium 40 mg 06/02/20 21:00 02/25/21 20:02 Atorvastatin 40 Mg Tab PO 40 mg HS JULITA Administration Budesonide/Formoterol Fumarate 2 puff 06/02/20 20:00 06/04/20 07:23 Symbicort 160-4.5 Mcg Inhaler INHALATION 2 puff RT-BID JULITA Administration Cholecalciferol 75 mcg 06/03/20 09:00 06/04/20 08:30 Cholecalciferol 25 Mcg (1000 Iu) Tablet PO 75 mcg DAILY JULITA Administration Cyanocobalamin 2,500 mcg 06/02/20 21:00 06/03/20 20:02 Cyanocobalamin 500 Mcg Tab PO 2,500 mcg HS JULITA Administration Cyclobenzaprine HCl 5 mg 06/02/20 21:00 06/03/20 20:02 Cyclobenzaprine 5 Mg Tab PO 5 mg HS JULITA Administration Cyclosporine 1 drops 06/02/20 21:00 06/04/20 08:32 Cyclosporine 0.05% Ophth 0.4 Ml Droperette BOTH EYES 1 drops BID JULITA Administration Docusate Sodium 100 mg 06/02/20 21:00 06/03/20 20:02 Docusate 100 Mg Cap PO 100 mg HS JULITA Administration Docusate Sodium 200 mg 06/03/20 09:00 06/04/20 08:30 Docusate 100 Mg Cap PO 200 mg DAILY JULITA Administration Ferrous Sulfate 325 mg 06/03/20 09:00 06/04/20 08:30 Ferrous Sulfate 325 Mg Tab PO 325 mg DAILY JULITA Administration Fluticasone Propionate 2 spray 06/03/20 09:00 06/04/20 09:14 Fluticasone 50mcg/Fishs [place] Nasal 16gm EA NOSTRIL 2 spray DAILY JULITA Administration Furosemide 40 mg 06/03/20 16:00 06/04/20 08:31 Furosemide 10 Mg/Ml 4 Ml Vial IV 40 mg Q8HR JULITA Administration Sodium Chloride 1,000 mls @ 20 mls/hr 06/02/20 15:15 06/03/20 17:05 Saline 0.9% IV Not Given .Q24H JULITA Ceftriaxone Sodium 1 gm/ 50 mls @ 100 mls/hr 06/03/20 09:00 06/04/20 08:32 Sodium Chloride IVPB 100 mls/hr Q24HR JULITA Administration Azithromycin 500 mg/ Sodium 250 mls @ 250 mls/hr 06/03/20 09:00 06/04/20 08:32 Chloride IVPB 250 mls/hr DAILY JULITA Administration Ipratropium Lyndon 0.5 mg 06/02/20 20:00 06/04/20 07:22 Ipratropium 0.5 Mg/2.5 Ml Nebu INHALATION 0.5 mg RT-QID JULITA Administration Lisinopril 2.5 mg 06/03/20 09:00 06/04/20 08:30 Lisinopril 2.5 Mg Tab PO 2.5 mg DAILY JULITA Administration Loratadine 10 mg 06/03/20 09:00 06/04/20 08:30 Loratadine 10 Mg Tab PO 10 mg DAILY JULITA Administration Magnesium Oxide 400 mg 06/02/20 21:00 06/04/20 08:31 Magnesium Oxide 400 Mg Tab PO 400 mg BID JULITA Administration Metoprolol Succinate 100 mg 06/03/20 09:00 06/04/20 08:31 Metoprolol Succinate (Er) 100 Mg Tab.Er.24h PO 100 mg DAILY JULITA Administration Miscellaneous Information 1 each 06/02/20 15:14 Warfarin Per Pharmacy MISCELLANE DIRECTED PRN Per Protocol Protocol Montelukast Sodium 10 mg 06/02/20 21:00 06/03/20 20:02 Montelukast 10 Mg Tab PO 10 mg HS JULITA Administration Naloxone HCl 0.2 mg 06/02/20 15:11 Naloxone 0.4 Mg/Ml 1 Ml Vial IV Q2M PRN Opioid Reversal Nitroglycerin 0.4 mg 06/02/20 18:07 Nitroglycerin Sl Tabs 0.4 Mg Tab SUBLINGUAL Q5M PRN Chest Pain Pantoprazole Sodium 40 mg 06/03/20 07:30 06/04/20 06:27 Pantoprazole 40 Mg Tablet PO 40 mg [id number] JULITA Administration Spironolactone 25 mg 06/02/20 21:00 06/03/20 20:02 Spironolactone 25 Mg Tab PO 25 mg HS JULITA Administration Tamsulosin HCl 0.4 mg 06/02/20 21:00 06/03/20 20:02 Tamsulosin 0.4 Mg Cap.Er.24h PO 0.4 mg HS JULITA Administration Trospium 20 mg 06/03/20 09:00 06/04/20 08:32 Trospium Chloride 20 Mg Tablet PO 20 mg DAILY JULITA Administration Warfarin Sodium 5 mg 06/04/20 18:00 Warfarin 5 Mg Tab PO 06/04/20 18:01 ONCE ONE Objective - Vital Signs Vital signs: Vital Signs Temp 98.3 F 06/04/20 08:00 Pulse 122 H 06/04/20 08:00 Resp 20 06/04/20 08:00 BP 91/59 06/04/20 08:00 Pulse Ox 97 06/04/20 08:00 Intake & Output 06/03/20 06/04/20 06/04/20 18:59 06:59 18:59 Intake Total 980 540 240 Output Total 650 500 400 Balance 330 40 -160 Weight 120.2 kg Intake: Oral 980 540 240 Output: Urine 650 500 400 Uretheral (Reyes) 300 Other: Voiding Method Indwelling Catheter Indwelling Catheter # Voids 1 # Bowel Movements 1 - Exam GENERAL: The patient is alert and oriented x3, not in any acute distress. Well developed, well nourished. HEENT: Pupils are round and equally reacting to light. EOMI. No scleral icterus. No conjunctival pallor. Normocephalic, atraumatic. No pharyngeal erythema. No thyromegaly. CARDIOVASCULAR: S1 and S2 present. No murmurs, rubs, or gallops. -PULMONARY: Chest is clear to auscultation, scattered expiratory wheezing all ov er with bilateral basal crackles, slightly improved ABDOMEN: Soft, nontender, nondistended, normoactive bowel sounds. No palpable organomegaly. MUSCULOSKELETAL: No joint swelling or deformity. -EXTREMITIES: No cyanosis, clubbing, . 2+ bilateral pitting leg edema NEUROLOGICAL: Gross neurological examination did not reveal any focal deficits. SKIN: No rashes. No petechiae - Labs CBC & Chem 7: 06/02/20 14:25 06/04/20 06:50 Labs: Abnormal Lab Results - Last 24 Hours (Table) 06/03/20 06/04/20 06/04/20 Range/Units 07:07 06:50 06:50 PT 17.1 H (9.0-12.0) sec INR 1.7 H (<1.2) Sodium 134 L (137-145) mmol/L Chloride 93 L (98-107) mmol/L Carbon Dioxide 35 H (22-30) mmol/L BUN 22 H (9-20) mg/dL Glucose 109 H (74-99) mg/dL Hemoglobin A1c 6.2 H (4.0-6.0) % Assessment and Plan Assessment: Atrial fibrillation with rapid ventricular rate Acute on chronic systolic CHF supra-therapeutic INR, coagulopathy secondary to warfarin Low-grade fever, with tachycardia. [place] its due to recent vaccination and his heart failure rather than pneumonia. No sepsis Patient meets SIR S criteria for sepsis Possible Mild acute COPD exacerbation CAD status post PCI to RCA Chronic systolic congestive heart failure EF of 30-35% History of aortic stenosis status post aVR in August 2019 Chronic hypoxic respiratory failure due to COPD, on 2 L oxygen via NC at home COPD not in acute exacerbation Hypertension Hyperlipidemia Obesity with BMI of 37.7 Plan: this is a pleasant 75 years old male who presents with A. fib, low-grade fever. Possible CHF. Continue with metoprolol, cardiology consult. Also start her on ceftriaxone and Zithromax. Send for sputum culture . Check hemoglobin A1c, procalcitonin and influenza. We'll start the patient on Lasix and small dose of steroids Labs and medication were reviewed.. Continue same treatment. Continue with symptomatic treatment. Resume home medication. Monitor lytes and vitals. DVT and GI prophylaxis. Further recommendations depends on the clinical course of the patient DVT prophylaxis: On warfarin GI Prophylaxis: Pepcid PT/OT: Pending Prognosis is guarded
[2020-06-04] MEDS: SODIUM CHLORIDE 0.9% 1,000 ML IV SCH (12:30)
[2020-06-04] MEDS: THIAMINE 100 MG TAB PO SCH (12:30)
--- NOTE | 2020-06-04 14:36 | P.PN ---
Subjective Progress Note Date: 06/04/20 This is a pleasant 75-year-old male past medical history significant for COPD, chronic atrial fibrillation on coumadin, atrial flutter, heart failure with reduced EF, coronary artery disease s/p PCI and stent placement in RCA, aortic stensosis s/p TAVR, hypertension, hyperlipidemia, and former smoker. He follows in the office with Dr. Nguyễn. We have been asked to see in consultation for A-fib with RVR. Patient received a Covid 19 vaccine on Sunday, Sunday patient started feeling fatigued, chills, shortness of breath, and nonproductive cough. Patient states he could not walk "even 2 inches" due to fatigue. Patient states he is on chronic 2L O2 at home. He states shortness of breath while sleeping has been going on for over a year he has been sleeping in a recliner ch air. He states there is an increase in leg swelling, he does where compression stockings. He has been compliant with his medications. He denies palpitations, however, does notice intermittently on his heart rate monitor at home that he is irregular. He endorses no change in his diet, however does eat frozen meals frequently. Former smoker for 30 years, quit in 1993. Patient drinks 2 glasses of wine states each glass is a small wine tumbler 3/4 full. 06/04/20 Patient is seen and examined this morning sitting in the chair, alert and oriented x 3, in no acute distress, on 3L nasal cannula O2. Patient stated he had one episode of dyspnea and labored breathing overnight while lying in bed trying to sleep. HOB >30 degrees. Patient states that he moved to the chair to sleep and felt more comfortable. Patient has not had another episode of dyspnea today. Patient denies chest pain, palpitations, nausea, vomiting, abdominal pain, headache, lightheadedness, or dizziness. Reyes removed 06/03/20. Laboratory data reviewed, INR 1.7, Sodium 134, K 4.4, sCr 0.84. 2kg weight gain. Per RN, patient did not receive IV lasix yesterday secondary to hypotension. Patient was asymptomatic at this time. Cardiac telemetry reviewed: Atrial fibrillation with rapid ventricular response. Patient with 5beat run Vtach at 09:15PM 06/03 I/Os Urine Output: 06/03: 2050mL 06/04 1150mL PHYSICAL EXAMINATION CONSTITUTIONAL: No apparent distress. HEENT: Head is normocephalic. Pupils are equal, round. Sclerae anicteric. Mucous membranes of the mouth are moist. +JVD. No carotid bruit. CHEST EXAMINATION: Lungs have diminished air exchange, bi-basilar crackles, No chest wall tenderness is noted on palpation or with deep breathing. HEART EXAMINATION: Irregular rate and rhythm. S1, S2 heard. No murmurs, gallops or rub. ABDOMEN: Soft, nontender. Positive bowel sounds. EXTREMITIES: 2+ peripheral pulses, 3+ Pitting edema, +calf tenderness. NEUROLOGIC EXAMINATION: Patient is awake, alert and oriented x3. ASSESSMENT COPD Atrial fibrillation with rapid ventricular response- Unknown at this time if persistent at this time. Patient states his home monitor has read HR irregular and regular, however, this cannot be always accurate. Chronic Heart failure with reduced EF Coronary artery disease s/p PCI and stent placement in RCA Aortic stensosis s/p TAVR Hypertension Hyperlipidemia Subtherapeutic INR Obesity BMI 38 PLAN -Patient will folllow up with Dr. Beckman for possible heart monitor to be pl aced in the office to confirm if patient is in persistent atrial fibrillation. Due to consistent decrease in ejection fraction, persistent atrial fibrillation could be causing worsening EF, and cardioversion could be of benefit. If chronic persistent, will most likely continue medical management. -IV Lasix 40mg Q8hr for today- will most likely transition to PO tomorrow -Patient not on ACEI- Lisinopril 2.5mg PO daily started on 06/03- However, Patient continues to be hypotensive 80s/40s this afternoon- will hold lisinopril at this time in order to diuresis patient. -INR subtherapeutic- Coumadin 5mg tonight. -Continue amiodarone 200mg BID for now -Continue ASA, Atorvastatin, metoprolol, spironolactone -Patients chills, fatigue have improved, most likely secondary to covid-19 vaccine- No need for antibiotics at this time -I/Os, daily weights -Will continue to monitor renal function and electrolytes Nurse Practitioner note has been reviewed, I agree with a documented findings an d plan of care. Patient was seen and examined. Objective - Vital Signs Vital signs: Vital Signs Temp 98.3 F 06/03/20 19:59 Pulse 102 H 06/04/20 07:32 Resp 18 06/04/20 04:00 BP 87/60 06/04/20 04:00 Pulse Ox 98 06/04/20 04:00 Intake & Output 06/03/20 06/04/20 06/04/20 18:59 06:59 18:59 Intake Total 980 540 Output Total 650 500 Balance 330 40 Weight 120.2 kg Intake: Oral 980 540 Output: Urine 650 500 Uretheral (Reyes) 300 Other: Voiding Method Indwelling Catheter Indwelling Catheter # Voids 1 - Labs CBC & Chem 7: 06/02/20 14:25 06/04/20 06:50 Labs: Abnormal Lab Results - Last 24 Hours (Table) 06/03/20 06/04/20 06/04/20 Range/Units 07:07 06:50 06:50 PT 17.1 H (9.0-12.0) sec INR 1.7 H (<1.2) Sodium 134 L (137-145) mmol/L Chloride 93 L (98-107) mmol/L Carbon Dioxide 35 H (22-30) mmol/L BUN 22 H (9-20) mg/dL Glucose 109 H (74-99) mg/dL Hemoglobin A1c 6.2 H (4.0-6.0) %
[2020-06-04] MEDS ORDERED: WARFARIN 5 MG TAB PO ONE (18:00)
[2020-06-04] MEDS: CYANOCOBALAMIN 500 MCG TAB PO SCH (21:50)
[2020-06-04] MEDS: CYCLOBENZAPRINE 5 MG TAB PO SCH (21:51)
[2020-06-04] MEDS: SPIRONOLACTONE 25 MG TAB PO SCH (21:51)
[2020-06-04] MEDS: TAMSULOSIN 0.4 MG CAP.ER.24H PO SCH (21:51)
[2020-06-04] MEDS: MONTELUKAST 10 MG TAB PO SCH (21:51)
[2020-06-04] MEDS: ATORVASTATIN 40 MG TAB PO SCH (21:51)
[2020-06-05] MEDS: FUROSEMIDE 10 MG/ML 4 ML VIAL IV SCH ×4 (00:25→23:15)
[2020-06-05] MEDS: PANTOPRAZOLE 40 MG TABLET PO SCH (06:56)
[2020-06-05] MEDS: SYMBICORT 160-4.5 MCG INHALER INHALATION SCH ×2 (07:31→19:30)
[2020-06-05] MEDS: IPRATROPIUM 0.5 MG/2.5 ML NEBU INHALATION SCH ×4 (07:31→19:30)
[2020-06-05 07:49] LABS: INR 1.9 (<1.2); Prothrombin Time 18.7 sec (9.0-12.0)
[2020-06-05 08:12] LABS: African American GFR (CKD) >90 (>60 ml/min/1.73 sqM); Anion Gap 5 mmol/L; Blood Urea Nitrogen 27 mg/dL (9-20); Carbon Dioxide 36 mmol/L (22-30); Chloride 93 mmol/L (98-107); Glucose 97 mg/dL (74-99); Non-African American GFR(CKD) 86 (>60 ml/min/1.73 sqM); Potassium 4.1 mmol/L (3.5-5.1); Sodium 134 mmol/L (137-145)
[2020-06-05] MEDS: FLUTICASONE 50MCG/SPRAY NASAL 16GM EA NOSTRIL SCH (08:25)
[2020-06-05] MEDS: METOPROLOL SUCCINATE (ER) 100 MG TAB.ER.24H PO SCH (08:27)
[2020-06-05] MEDS: CHOLECALCIFEROL 25 MCG (1000 IU) TABLET PO SCH (08:27)
[2020-06-05] MEDS: MAGNESIUM OXIDE 400 MG TAB PO SCH ×2 (08:27→22:26)
[2020-06-05] MEDS: allopurinoL 300 MG TAB PO SCH (08:27)
[2020-06-05] MEDS: ASPIRIN 81 MG PO SCH (08:27)
[2020-06-05] MEDS: FERROUS SULFATE 325 MG TAB PO SCH (08:27)
[2020-06-05] MEDS: TROSPIUM CHLORIDE 20 MG TABLET PO SCH (08:28)
[2020-06-05] MEDS: DOCUSATE 100 MG CAP PO SCH ×2 (08:28→22:26)
[2020-06-05] MEDS: cycloSPORINE 0.05% OPHTH 0.4 ML DROPERETTE BOTH EYES SCH ×2 (08:28→22:30)
[2020-06-05] MEDS: ASCORBIC ACID 500 MG TAB PO SCH (08:28)
[2020-06-05] MEDS: AMIODARONE 200 MG TAB PO SCH ×2 (08:28→22:26)
[2020-06-05] MEDS: THIAMINE 100 MG TAB PO SCH (08:29)
[2020-06-05] MEDS: LORATADINE 10 MG TAB PO SCH (08:29)
[2020-06-05] MEDS: SODIUM CHLORIDE 0.9% 1,000 ML IV SCH (11:20)
--- NOTE | 2020-06-05 11:37 | P.PN ---
Subjective Mr. Mccullough is a 75-year-old male with a past medical history of atrial fibrillation on anticoagulation now, asthma, coronary artery disease, COPD, diabetes mellitus, GERD, hypertension, hyperlipidemia, osteoarthritis, prostate disorder, obstructive sleep apnea, Presents because of dyspnea per ED triage however when I saw the patient he was lying in chair with legs elevated. His main complaint that made him come to the hospital this acute generalized weakness as he could not stand up from his incliner yesterday, he feels weak all over his body. However he denies dyspnea or coughing for me he denies chest pain. He got his buckley virus shot 4 days ago and he developed some diarrhea but he doesn't have any loose stool over the last 2 days. No urinary symptoms like no dysuria or change in frequency or urgency. No recent upper respiratory tract symptoms. No sick contacts. No dizziness or headache or unilateral weakness or numbness. No blurred vision or slurred speech. 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 Last night his blood pressure was 86/56 and currently 102/67 He was 100% on 5 L nonrebreather, currently is a 95% with related to her oxygen. labs showing normal WBC at 5.7K, rest of the CBC is unremarkable, normal hemoglobin at 13.6 and low platelets 132K. INR is elevated at 3.4. Electrolytes and creatinine are within normal limits, liver enzymes not elevated. Troponin is negative less than 0.012. ProBNP is 760. And buckley virus not detected. Chest x-ray: Correlate for CHF versus interstitial pneumonia EKG showing atrial fibrillation's with RVR at 130. In the emergency room he received metoprolol, 1 L of normal 06/04/2020 Patient no significant respiratory distress distal tachypneic but he is improving. He still has bilateral basal crepitation. He is saturating 97% on 3 L oxygen via nasal cannula. Slightly tachycardic at 122. Blood pressure is 91/59. He has low-grade fever of 99.8 today. Labs carbon dioxide is elevated at 35. Sodium and creatinine are within the reference range. Hemoglobin A1c is 6.2%. Troponin is negative. TSH is normal at 1.7. Pro-calcitonin is normal at 0.09 Chest x-ray today: Persistent patchy basilar infiltrates Heart rate still slightly elevated around 122, he remains on amiodarone 200 mg a nd metoprolol 100 mg with cardiology on the case. Blood pressure is borderline We will discontinue the antibiotics of Zithromax and ceftriaxone and monitor his fever while off antibiotics. Keep Lasix and warfarin as per cardiology's recommendation. His INR is subtherapeutic and he will get 5 mg of Coumadin today. Patient is EX-smoker and we are going to monitor his lung function. Also he checks 1-2 beers daily. Add thiamine and Ativan as needed. Currently no signs of local withdrawal. Reyes catheter was discontinued and frequent order bladder scan Patient remains on Lasix 40 mg 3 times a day with cardiology on the case. 06/05/2020 Patient is asymptomatic while sitting in chair, however patient with minimal exertion, no chest pain. His chest is crepitation looks better and he is sat urating 98% on 3 L oxygen via nasal cannula which is his baseline of 2 L oxygen. Legs are wrapped with Sulaiman bandage and cannot be assessed today for leg swelling. His hogshead dumper is Dr. Nguyễn History of tachycardic around 110 INR today is 1.9 and dressed of BMP looks unremarkable. We'll try to get the patient moving around The case with cardiology team today he is not cleared for discharge Yesterday he got 5 mg of Coumadin and same today.. At home he takes 2.5 mg He continued to be on Lasix 40 mg for 3 times a day Objective - Vital Signs Vital signs: Vital Signs Temp 98.2 F 06/05/20 08:00 Pulse 112 H 06/05/20 11:24 Resp 18 06/05/20 08:00 BP 110/64 06/05/20 08:00 Pulse Ox 98 06/05/20 08:00 Intake & Output 06/04/20 06/05/20 06/05/20 18:59 06:59 18:59 Intake Total 480 500 Output Total 950 1300 500 Balance -470 -1300 0 Weight 120.5 kg Intake: Oral 480 500 Output: Urine 950 1300 500 Other: Voiding Method Urinal Urinal # Voids 1 # Bowel Movements 1 - Exam GENERAL: The patient is alert and oriented x3, not in any acute distress. Well developed, well nourished. HEENT: Pupils are round and equally reacting to light. EOMI. No scleral icterus. No conjunctival pallor. Normocephalic, atraumatic. No pharyngeal erythema. No thyromegaly. CARDIOVASCULAR: S1 and S2 present. No murmurs, rubs, or gallops. -PULMONARY: Chest is clear to auscultation, scattered expiratory wheezing all over with bilateral basal crackles, slightly improved ABDOMEN: Soft, nontender, nondistended, normoactive bowel sounds. No palpable organomegaly. MUSCULOSKELETAL: No joint swelling or deformity. -EXTREMITIES: No cyanosis, clubbing, . 2+ bilateral pitting leg edema NEUROLOGICAL: Gross neurological examination did not reveal any focal deficits. SKIN: No rashes. No petechiae - Labs CBC & Chem 7: 06/02/20 14:25 06/05/20 06:53 Labs: Abnormal Lab Results - Last 24 Hours (Table) 06/05/20 06/05/20 Range/Units 06:53 06:53 PT 18.7 H (9.0-12.0) sec INR 1.9 H (<1.2) Sodium 134 L (137-145) mmol/L Chloride 93 L (98-107) mmol/L Carbon Dioxide 36 H (22-30) mmol/L BUN 27 H (9-20) mg/dL Assessment and Plan Assessment: Atrial fibrillation with rapid ventricular rate Acute on chronic systolic CHF on admission supra-therapeutic INR, coagulopathy secondary to warfarin Low-grade fever, with tachycardia. [place] its due to recent vaccination and his heart failure rather than pneumonia. No sepsis Patient does not meets SIR S criteria for sepsis CAD status post PCI to RCA Chronic systolic congestive heart failure EF of 30-35% History of aortic stenosis status post aVR in August 2019 Chronic hypoxic respiratory failure due to COPD, on 2 L oxygen via [place] at home COPD not in acute exacerbation Hypertension Hyperlipidemia Obesity with BMI of 37.7 Plan: this is a pleasant 75 years old male who presents with A. fib, CHF. Continue w ith metoprolol, cardiology consult. Discontinue antibiotic ceftriaxone and Zithromax. Continue with Lasix and Coumadin Labs and medication were reviewed.. Continue same treatment. Continue with sy mptomatic treatment. Resume home medication. Monitor lytes and vitals. DVT and GI prophylaxis. Further recommendations depends on the clinical course of the patient DVT prophylaxis: On warfarin GI Prophylaxis: Pepcid PT/OT: Pending Prognosis is guarded
--- NOTE | 2020-06-05 12:50 | P.PN ---
Subjective This is a pleasant 75-year-old male past medical history significant for chronic atrial fibrillation on long-term anticoagulation chronic systolic heart failure, coronary artery disease status post PCI of the RCA, aortic stenosis status post TAVR, COPD, hypertension and dyslipidemia. He follows my office with Dr. Nguyễn. He is seen and examined sitting up in the recliner in no acute distress. He states overall he doesn't feel any different from admission. He continues to feel increased fatigue and shortness of breath. He has ongoing lower extremity edema. Currently maintained on Lasix IV 40 mg 3 times a day, amiodarone 200 mg twice a day, aspirin 81 mg daily, Lipitor 40 mg daily, Toprol-XL 100 mg daily, Aldactone 25 mg daily and warfarin. Blood pressure 110/64 heart rate 88-117 and atrial fibrillation. Laboratory data reviewed, INR 1.9, sodium 134, potassium 4.1, creatinine 0.86. 24-hour urine output is 2250 ML's. Recent echo obtained January 2020 reveals impaired LV systolic function with ejection fraction 30-35%, mild periprosthetic regurgitation of the bioprosthetic aortic valve with a mean gradient of 1.9 mmHg, mild mitral stenosis with a mean gradient across the mitral valve was 3.9 mmHg. GENERAL: Well-appearing, well-nourished and in no acute distress. NECK: Supple without JVD or thyromegaly. LUNGS: Bibasilar crackles, no wheezes or rhonchi. Respiration equal and unlabored. HEART: Irregular rate and rhythm with systolic ejection murmur at the base, no rubs or gallops. S1 and S2 heard. EXTREMITIES: Normal range of motion, bilateral lower extremity edema, Sulaiman wraps in place. No clubbing or cyanosis. Peripheral pulses intact. ASSESSMENT Acute on chronic systolic heart failure COPD Atrial fibrillation with rapid ventricular response, unknown if persistent or paroxysmal. Coronary artery disease status post PCI Aortic stenosis status post TAVR Hypertension Dyslipidemia PLAN Continue IV diuresis. Follow renal function and electrolytes in the morning. Continue to document accurate intake and output along with daily weights. We will continue to follow and make recommendations accordingly. Nurse Practitioner note has been reviewed, I agree with a documented findings and plan of care. Patient was seen and examined. Objective - Vital Signs Vital signs: Vital Signs Temp 98.2 F 06/05/20 08:00 Pulse 88 06/05/20 08:03 Resp 18 06/05/20 08:00 BP 110/64 06/05/20 08:00 Pulse Ox 98 06/05/20 08:00 Intake & Output 06/04/20 06/05/20 06/05/20 18:59 06:59 18:59 Intake Total 480 Output Total 950 1300 Balance -470 -1300 Weight 120.5 kg Intake: Oral 480 Output: Urine 950 1300 Other: Voiding Method Urinal # Voids 1 # Bowel Movements 1 - Labs CBC & Chem 7: 06/02/20 14:25 06/05/20 06:53 Labs: Abnormal Lab Results - Last 24 Hours (Table) 06/05/20 06/05/20 Range/Units 06:53 06:53 PT 18.7 H (9.0-12.0) sec INR 1.9 H (<1.2) Sodium 134 L (137-145) mmol/L Chloride 93 L (98-107) mmol/L Carbon Dioxide 36 H (22-30) mmol/L BUN 27 H (9-20) mg/dL
[2020-06-05] MEDS ORDERED: WARFARIN 5 MG TAB PO ONE (18:00)
[2020-06-05] MEDS: CYANOCOBALAMIN 500 MCG TAB PO SCH (22:26)
[2020-06-05] MEDS: SPIRONOLACTONE 25 MG TAB PO SCH (22:26)
[2020-06-05] MEDS: ATORVASTATIN 40 MG TAB PO SCH (22:26)
[2020-06-05] MEDS: MONTELUKAST 10 MG TAB PO SCH (22:26)
[2020-06-05] MEDS: TAMSULOSIN 0.4 MG CAP.ER.24H PO SCH (22:26)
[2020-06-05] MEDS: CYCLOBENZAPRINE 5 MG TAB PO SCH (22:26)
[2020-06-06] MEDS: PANTOPRAZOLE 40 MG TABLET PO SCH (06:55)
[2020-06-06] MEDS: IPRATROPIUM 0.5 MG/2.5 ML NEBU INHALATION SCH ×4 (07:53→20:02)
[2020-06-06] MEDS: SYMBICORT 160-4.5 MCG INHALER INHALATION SCH ×2 (07:53→20:02)
[2020-06-06] MEDS: FUROSEMIDE 10 MG/ML 4 ML VIAL IV SCH ×2 (07:59→17:19)
[2020-06-06] MEDS: FERROUS SULFATE 325 MG TAB PO SCH (08:00)
[2020-06-06] MEDS: ASPIRIN 81 MG PO SCH (08:00)
[2020-06-06] MEDS: THIAMINE 100 MG TAB PO SCH (08:00)
[2020-06-06] MEDS: TROSPIUM CHLORIDE 20 MG TABLET PO SCH (08:00)
[2020-06-06] MEDS: cycloSPORINE 0.05% OPHTH 0.4 ML DROPERETTE BOTH EYES SCH ×2 (08:00→21:25)
[2020-06-06] MEDS: DOCUSATE 100 MG CAP PO SCH ×2 (08:00→21:24)
[2020-06-06] MEDS: AMIODARONE 200 MG TAB PO SCH ×2 (08:00→21:24)
[2020-06-06] MEDS: MAGNESIUM OXIDE 400 MG TAB PO SCH ×2 (08:00→21:24)
[2020-06-06] MEDS: ASCORBIC ACID 500 MG TAB PO SCH (08:00)
[2020-06-06] MEDS: METOPROLOL SUCCINATE (ER) 100 MG TAB.ER.24H PO SCH (08:01)
[2020-06-06] MEDS: CHOLECALCIFEROL 25 MCG (1000 IU) TABLET PO SCH (08:01)
[2020-06-06] MEDS: LORATADINE 10 MG TAB PO SCH (08:01)
[2020-06-06] MEDS: allopurinoL 300 MG TAB PO SCH (08:01)
[2020-06-06] MEDS: FLUTICASONE 50MCG/SPRAY NASAL 16GM EA NOSTRIL SCH (08:01)
[2020-06-06] MEDS: SODIUM CHLORIDE 0.9% 1,000 ML IV SCH (08:16)
[2020-06-06 09:02] LABS: INR 2.5 (<1.2); Prothrombin Time 24.5 sec (9.0-12.0)
[2020-06-06 09:03] LABS: Calcium 9.3 mg/dL (8.4-10.2); Potassium 4.1 mmol/L (3.5-5.1)
--- NOTE | 2020-06-06 10:36 | P.PN ---
Subjective This is a pleasant 75-year-old male past medical history significant for chronic atrial fibrillation on long-term anticoagulation chronic systolic heart failure, coronary artery disease status post PCI of the RCA, aortic stenosis status post TAVR, COPD, hypertension and dyslipidemia. He follows my office with Dr. Nguyễn. He is seen and examined sitting up in the recliner in no acute distress. He states overall he doesn't feel any different from admission. He continues to feel increased fatigue and shortness of breath. He has ongoing lower extremity edema. Currently maintained on Lasix IV 40 mg 3 times a day, amiodarone 200 mg twice a day, aspirin 81 mg daily, Lipitor 40 mg daily, Toprol-XL 100 mg daily, Aldactone 25 mg daily and warfarin. Blood pressure 110/64 heart rate 88-117 and atrial fibrillation. Laboratory data reviewed, INR 1.9, sodium 134, potassium 4.1, creatinine 0.86. 24-hour urine output is 2250 ML's. Recent echo obtained January 2020 reveals impaired LV systolic function with ejection fraction 30-35%, mild periprosthetic regurgitation of the bioprosthetic aortic valve with a mean gradient of 1.9 mmHg, mild mitral stenosis with a mean gradient across the mitral valve was 3.9 mmHg. 06/06/2020 Patient is seen and examined sitting up in the chair in no acute distress. He has ongoing lower extremity edema and continues to feel short of breath. His heart rate continues to be mildly rapid. Blood pressure 101/67 heart rate 112 afebrile maintaining oxygen saturation on nasal cannula. Laboratory data reviewed, INR 2.5, sodium 135, potassium 4.1, creatinine 0.99. GENERAL: Well-appearing, well-nourished and in no acute distress. NECK: Supple without JVD or thyromegaly. LUNGS: Bibasilar crackles, no wheezes or rhonchi. Respiration equal and unlabored. HEART: Irregular rate and rhythm with systolic ejection murmur at the base, no rubs or gallops. S1 and S2 heard. EXTREMITIES: Normal range of motion, bilateral lower extremity edema, Sulaiman wraps in place. No clubbing or cyanosis. Peripheral pulses intact. ASSESSMENT Acute on chronic systolic heart failure COPD Atrial fibrillation with rapid ventricular response, unknown if persistent or paroxysmal. Maintained on coumadin. Coronary artery disease status post PCI Aortic stenosis status post TAVR Hypertension Dyslipidemia PLAN Continue IV diuresis. Follow renal function and electrolytes in the morning. Continue to document accurate intake and output along with daily weights. Add additional dose of toprol 50 mg at noontime. We will continue to follow and make recommendations accordingly. Nurse Practitioner note has been reviewed, I agree with a documented findings and plan of care. Patient was seen and examined. Objective - Vital Signs Vital signs: Vital Signs Temp 98.1 F 06/06/20 07:53 Pulse 112 H 06/06/20 08:03 Resp 18 06/06/20 08:00 BP 101/67 06/06/20 07:53 Pulse Ox 98 06/06/20 07:55 Intake & Output 06/05/20 06/06/20 06/06/20 18:59 06:59 18:59 Intake Total 680 Output Total 1700 850 Balance -1020 -850 Weight 119.9 kg Intake: Oral 680 Output: Urine 1700 850 Other: Voiding Method Urinal Urinal Urinal # Voids 1 # Bowel Movements 0 - Labs CBC & Chem 7: 06/02/20 14:25 06/06/20 07:27 Labs: Abnormal Lab Results - Last 24 Hours (Table) 06/06/20 06/06/20 Range/Units 07:27 07:27 PT 24.5 H (9.0-12.0) sec INR 2.5 H (<1.2) Sodium 135 L (137-145) mmol/L Chloride 90 L (98-107) mmol/L Carbon Dioxide 39 H (22-30) mmol/L BUN 23 H (9-20) mg/dL
[2020-06-06] MEDS: METOPROLOL SUCCINATE (ER) 50 MG TAB.ER.24H PO SCH (11:30)
--- NOTE | 2020-06-06 12:13 | P.PN ---
Subjective Mr. Mccullough is a 75-year-old male with a past medical history of atrial fibrillation on anticoagulation now, asthma, coronary artery disease, COPD, diabetes mellitus, GERD, hypertension, hyperlipidemia, osteoarthritis, prostate disorder, obstructive sleep apnea, Presents because of dyspnea per ED triage however when I saw the patient he was lying in chair with legs elevated. His main complaint that made him come to the hospital this acute generalized weakness as he could not stand up from his incliner yesterday, he feels weak all over his body. However he denies dyspnea or coughing for me he denies chest pain. He got his buckley virus shot 4 days ago and he developed some diarrhea but he doesn't have any loose stool over the last 2 days. No urinary symptoms like no dysuria or change in frequency or urgency. No recent upper respiratory tract symptoms. No sick contacts. No dizziness or headache or unilateral weakness or numbness. No blurred vision or slurred speech. 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 He sees Dr. Nguyễn his associate medical director On admission he has low-grade fever of 100.8, he has tachycardia 122, blood pressure 149/66. Last night his blood pressure was 86/56 and currently 102/67 He was 100% on 5 L nonrebreather, currently is a 95% with related to her oxygen. labs showing normal WBC at 5.7K, rest of the CBC is unremarkable, normal hemoglobin at 13.6 and low platelets 132K. INR is elevated at 3.4. Electrolytes and creatinine are within normal limits, liver enzymes not elevated. Troponin is negative less than 0.012. ProBNP is 760. And buckley virus not detected. Chest x-ray: Correlate for CHF versus interstitial pneumonia EKG showing atrial fibrillation's with RVR at 130. In the emergency room he received metoprolol, 1 L of normal 06/04/2020 Patient no significant respiratory distress distal tachypneic but he is improving. He still has bilateral basal crepitation. He is saturating 97% on 3 L oxygen via nasal cannula. Slightly tachycardic at 122. Blood pressure is 91/59. He has low-grade fever of 99.8 today. Labs carbon dioxide is elevated at 35. Sodium and creatinine are within the reference range. Hemoglobin A1c is 6.2%. Troponin is negative. TSH is normal at 1.7. Pro-calcitonin is normal at 0.09 Chest x-ray today: Persistent patchy basilar infiltrates Heart rate still slightly elevated around 122, he remains on amiodarone 200 mg a nd metoprolol 100 mg with cardiology on the case. Blood pressure is borderline We will discontinue the antibiotics of Zithromax and ceftriaxone and monitor his fever while off antibiotics. Keep Lasix and warfarin as per cardiology's recommendation. His INR is subtherapeutic and he will get 5 mg of Coumadin today. Patient is EX-smoker and we are going to monitor his lung function. Also he checks 1-2 beers daily. Add thiamine and Ativan as needed. Currently no signs of local withdrawal. Reyes catheter was discontinued and frequent order bladder scan Patient remains on Lasix 40 mg 3 times a day with cardiology on the case. 06/05/2020 Patient is asymptomatic while sitting in chair, however patient with minimal exertion, no chest pain. His chest is crepitation looks better and he is sat urating 98% on 3 L oxygen via nasal cannula which is his baseline of 2 L oxygen. Legs are wrapped with Sulaiman bandage and cannot be assessed today for leg swelling. His associate medical director is Dr. Nguyễn History of tachycardic around 110 INR today is 1.9 and dressed of BMP looks unremarkable. We'll try to get the patient moving around The case with cardiology team today he is not cleared for discharge Yesterday he got 5 mg of Coumadin and same today.. At home he takes 2.5 mg He continued to be on Lasix 40 mg for 3 times a day 06/05/2020 She and sitting in chair most of the time, he feels the same, no shortness of breath with little dyspnea on going to the restroom about 4-5 steps He has less leg swelling, less basal crackles. No significant decrease in his recorded weight. Decreased oxygen requirements to 2 L/m which is his baseline Warfarin is 2.5 today after he got 5 mg yesterday. He is back to 2.5 mg today He continued on Lasix 40 mg 3 times a day this morning Objective - Vital Signs Vital signs: Vital Signs Temp 97.7 F 06/06/20 11:28 Pulse 112 H 06/06/20 11:58 Resp 18 06/06/20 11:58 BP 94/61 06/06/20 11:28 Pulse Ox 97 06/06/20 11:28 Intake & Output 06/05/20 06/06/20 06/06/20 18:59 06:59 18:59 Intake Total 680 120 Output Total 6300 361 9485 Balance -3330 -173 -6800 Weight 119.9 kg Intake: Oral 680 120 Output: Urine 4703 597 5051 Other: Voiding Method Urinal Urinal Urinal # Voids 1 2 # Bowel Movements 0 0 - Exam GENERAL: The patient is alert and oriented x3, not in any acute distress. Well developed, well nourished. HEENT: Pupils are round and equally reacting to light. EOMI. No scleral icterus. No conjunctival pallor. Normocephalic, atraumatic. No pharyngeal erythema. No thyromegaly. CARDIOVASCULAR: S1 and S2 present. No murmurs, rubs, or gallops. -PULMONARY: Chest is clear to auscultation, scattered expiratory wheezing all over with bilateral basal crackles, slightly improved ABDOMEN: Soft, nontender, nondistended, normoactive bowel sounds. No palpable organomegaly. MUSCULOSKELETAL: No joint swelling or deformity. -EXTREMITIES: No cyanosis, clubbing, . 2+ bilateral pitting leg edema NEUROLOGICAL: Gross neurological examination did not reveal any focal deficits. SKIN: No rashes. No petechiae - Labs CBC & Chem 7: 06/02/20 14:25 06/06/20 07:27 Labs: Abnormal Lab Results - Last 24 Hours (Table) 06/06/20 06/06/20 Range/Units 07:27 07:27 PT 24.5 H (9.0-12.0) sec INR 2.5 H (<1.2) Sodium 135 L (137-145) mmol/L Chloride 90 L (98-107) mmol/L Carbon Dioxide 39 H (22-30) mmol/L BUN 23 H (9-20) mg/dL Assessment and Plan Assessment: Atrial fibrillation with rapid ventricular rate Acute on chronic systolic CHF on admission supra-therapeutic INR, coagulopathy secondary to warfarin Low-grade fever, with tachycardia. [place] its due to recent vaccination and his heart failure rather than pneumonia. No sepsis Patient does not meets SIR S criteria for sepsis CAD status post PCI to RCA Chronic systolic congestive heart failure EF of 30-35% History of aortic stenosis status post aVR in August 2019 Chronic hypoxic respiratory failure due to COPD, on 2 L oxygen via [place] at home COPD not in acute exacerbation Hypertension Hyperlipidemia Obesity with BMI of 37.7 Plan: this is a pleasant 75 years old male who presents with A. fib, CHF. Continue with metoprolol, cardiology consult. Discontinue antibiotic ceftriaxone and Zithromax. Continue with Lasix and Coumadin Labs and medication were reviewed.. Continue same treatment. Continue with symptomatic treatment. Resume home medication. Monitor lytes and vitals. DVT and GI prophylaxis. Further recommendations depends on the clinical course of the patient DVT prophylaxis: On warfarin GI Prophylaxis: Pepcid PT/OT: Pending Prognosis is guarded
[2020-06-06] MEDS ORDERED: WARFARIN 2.5 MG TAB PO ONE (18:00)
[2020-06-06] MEDS: SPIRONOLACTONE 25 MG TAB PO SCH (21:24)
[2020-06-06] MEDS: CYCLOBENZAPRINE 5 MG TAB PO SCH (21:24)
[2020-06-06] MEDS: TAMSULOSIN 0.4 MG CAP.ER.24H PO SCH (21:24)
[2020-06-06] MEDS: ATORVASTATIN 40 MG TAB PO SCH (21:24)
[2020-06-06] MEDS: MONTELUKAST 10 MG TAB PO SCH (21:24)
[2020-06-06] MEDS: CYANOCOBALAMIN 500 MCG TAB PO SCH (21:24)
[2020-06-07] MEDS: FUROSEMIDE 10 MG/ML 4 ML VIAL IV SCH ×4 (00:59→23:14)
[2020-06-07] MEDS: PANTOPRAZOLE 40 MG TABLET PO SCH (07:00)
[2020-06-07 07:55] LABS: INR 2.7 (<1.2); Prothrombin Time 26.3 sec (9.0-12.0)
[2020-06-07 08:11] LABS: African American GFR (CKD) >90 (>60 ml/min/1.73 sqM); Blood Urea Nitrogen 22 mg/dL (9-20); Calcium 9.4 mg/dL (8.4-10.2); Chloride 90 mmol/L (98-107); Glucose 101 mg/dL (74-99); Non-African American GFR(CKD) 80 (>60 ml/min/1.73 sqM); Potassium 4.1 mmol/L (3.5-5.1); Sodium 135 mmol/L (137-145)
[2020-06-07] MEDS: IPRATROPIUM 0.5 MG/2.5 ML NEBU INHALATION SCH ×4 (08:34→20:23)
[2020-06-07] MEDS: SYMBICORT 160-4.5 MCG INHALER INHALATION SCH ×2 (08:35→20:23)
[2020-06-07 08:41] LABS: Anion Gap 6 mmol/L; Carbon Dioxide 39 mmol/L (22-30)
--- NOTE | 2020-06-07 09:40 | P.PN ---
Subjective Mr. Mccullough is a 75-year-old male with a past medical history of atrial fibrillation on anticoagulation now, asthma, coronary artery disease, COPD, diabetes mellitus, GERD, hypertension, hyperlipidemia, osteoarthritis, prostate disorder, obstructive sleep apnea, Presents because of dyspnea per ED triage however when I saw the patient he was lying in chair with legs elevated. His main complaint that made him come to the hospital this acute generalized weakness as he could not stand up from his incliner yesterday, he feels weak all over his body. However he denies dyspnea or coughing for me he denies chest pain. He got his buckley virus shot 4 days ago and he developed some diarrhea but he doesn't have any loose stool over the last 2 days. No urinary symptoms like no dysuria or change in frequency or urgency. No recent upper respiratory tract symptoms. No sick contacts. No dizziness or headache or unilateral weakness or numbness. No blurred vision or slurred speech. 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 He sees Dr. Nguyễn his sales and in home delivery specialist On admission he has low-grade fever of 100.8, he has tachycardia 122, blood pressure 149/66. Last night his blood pressure was 86/56 and currently 102/67 He was 100% on 5 L nonrebreather, currently is a 95% with related to her oxygen. labs showing normal WBC at 5.7K, rest of the CBC is unremarkable, normal hemoglobin at 13.6 and low platelets 132K. INR is elevated at 3.4. Electrolytes and creatinine are within normal limits, liver enzymes not elevated. Troponin is negative less than 0.012. ProBNP is 760. And buckley virus not detected. Chest x-ray: Correlate for CHF versus interstitial pneumonia EKG showing atrial fibrillation's with RVR at 130. In the emergency room he received metoprolol, 1 L of normal 06/04/2020 Patient no significant respiratory distress distal tachypneic but he is improving. He still has bilateral basal crepitation. He is saturating 97% on 3 L oxygen via nasal cannula. Slightly tachycardic at 122. Blood pressure is 91/59. He has low-grade fever of 99.8 today. Labs carbon dioxide is elevated at 35. Sodium and creatinine are within the reference range. Hemoglobin A1c is 6.2%. Troponin is negative. TSH is normal at 1.7. Pro-calcitonin is normal at 0.09 Chest x-ray today: Persistent patchy basilar infiltrates Heart rate still slightly elevated around 122, he remains on amiodarone 200 mg a nd metoprolol 100 mg with cardiology on the case. Blood pressure is borderline We will discontinue the antibiotics of Zithromax and ceftriaxone and monitor his fever while off antibiotics. Keep Lasix and warfarin as per cardiology's recommendation. His INR is subtherapeutic and he will get 5 mg of Coumadin today. Patient is EX-smoker and we are going to monitor his lung function. Also he checks 1-2 beers daily. Add thiamine and Ativan as needed. Currently no signs of local withdrawal. Reyes catheter was discontinued and frequent order bladder scan Patient remains on Lasix 40 mg 3 times a day with cardiology on the case. 06/05/2020 Patient is asymptomatic while sitting in chair, however patient with minimal exertion, no chest pain. His chest is crepitation looks better and he is sat urating 98% on 3 L oxygen via nasal cannula which is his baseline of 2 L oxygen. Legs are wrapped with Sulaiman bandage and cannot be assessed today for leg swelling. His sales and in home delivery specialist is Dr. Nguynễ History of tachycardic around 110 INR today is 1.9 and dressed of [facility] looks unremarkable. We'll try to get the patient moving around The case with cardiology team today he is not cleared for discharge Yesterday he got 5 mg of Coumadin and same today.. At home he takes 2.5 mg He continued to be on Lasix 40 mg for 3 times a day 06/06/2020 She and sitting in chair most of the time, he feels the same, no shortness of breath with little dyspnea on going to the restroom about 4-5 steps He has less leg swelling, less basal crackles. No significant decrease in his recorded weight. Decreased oxygen requirements to 2 L/m which is his baseline Warfarin is 2.5 today after he got 5 mg yesterday. He is back to 2.5 mg today He continued on Lasix 40 mg 3 times a day this morning 06/07/2020 Patient is still with fluid overload still have crepitation both sides of the lung lower and middle zones. Still have leg swelling on both sides. In chair most of the time. Patient was encouraged to get moving around and he agrees. His INR today is 2.7. Creatinine and electrolytes are normal. He remains on Lasix 40 mg 3 times a day and warfarin 2.5 mg daily. Metoprolol 50 mg was added yesterday and his heart rates is Cardiology team Added yesterday to 50 mg daily and his heart rate is still 100-107. Objective - Vital Signs Vital signs: Vital Signs Temp 97.7 F 06/07/20 03:29 Pulse 100 06/07/20 08:50 Resp 18 06/07/20 03:29 BP 90/52 06/07/20 03:29 Pulse Ox 90 L 06/07/20 03:29 Intake & Output 06/06/20 06/07/20 06/07/20 18:59 06:59 18:59 Intake Total 300 Output Total 2500 800 Balance -2200 -800 Weight 119.3 kg Intake: Oral 300 Output: Urine 2500 800 Other: Voiding Method Urinal Urinal # Voids 2 1 # Bowel Movements 0 - Exam GENERAL: The patient is alert and oriented x3, not in any acute distress. Well developed, well nourished. HEENT: Pupils are round and equally reacting to light. EOMI. No scleral icterus. No conjunctival pallor. Normocephalic, atraumatic. No pharyngeal erythema. No thyromegaly. CARDIOVASCULAR: S1 and S2 present. No murmurs, rubs, or gallops. -PULMONARY: Chest is clear to auscultation, scattered expiratory wheezing all over with bilateral basal crackles, slightly improved ABDOMEN: Soft, nontender, nondistended, normoactive bowel sounds. No palpable organomegaly. MUSCULOSKELETAL: No joint swelling or deformity. -EXTREMITIES: No cyanosis, clubbing, . 2+ bilateral pitting leg edema NEUROLOGICAL: Gross neurological examination did not reveal any focal deficits. SKIN: No rashes. No petechiae - Labs CBC & Chem 7: 06/02/20 14:25 06/07/20 07:04 Labs: Abnormal Lab Results - Last 24 Hours (Table) 06/07/20 06/07/20 Range/Units 07:04 07:04 PT 26.3 H (9.0-12.0) sec INR 2.7 H (<1.2) Sodium 135 L (137-145) mmol/L Chloride 90 L (98-107) mmol/L Carbon Dioxide 39 H (22-30) mmol/L BUN 22 H (9-20) mg/dL Glucose 101 H (74-99) mg/dL Assessment and Plan Assessment: Atrial fibrillation with rapid ventricular rate Acute on chronic systolic CHF on admission supra-therapeutic INR, coagulopathy secondary to warfarin Low-grade fever, with tachycardia. [place] its due to recent vaccination and his heart failure rather than pneumonia. No sepsis Patient does not meets SIR S criteria for sepsis CAD status post PCI to RCA Chronic systolic congestive heart failure EF of 30-35% History of aortic stenosis status post aVR in August 2019 Chronic hypoxic respiratory failure due to COPD, on 2 L oxygen via [place] at home COPD not in acute exacerbation Hypertension Hyperlipidemia Obesity with BMI of 37.7 Plan: this is a pleasant 75 years old male who presents with A. fib, CHF. Continue with metoprolol, cardiology consult. Discontinue antibiotic ceftriaxone and Zithromax. Continue with Lasix and Coumadin Labs and medication were reviewed.. Continue same treatment. Continue with symptomatic treatment. Resume home medication. Monitor lytes and vitals. DVT and GI prophylaxis. Further recommendations depends on the clinical course of the patient DVT prophylaxis: On warfarin GI Prophylaxis: Pepcid PT/OT: Pending Prognosis is guarded
[2020-06-07] MEDS: DOCUSATE 100 MG CAP PO SCH ×2 (10:16→20:08)
[2020-06-07] MEDS: CHOLECALCIFEROL 25 MCG (1000 IU) TABLET PO SCH (10:16)
[2020-06-07] MEDS: FERROUS SULFATE 325 MG TAB PO SCH (10:16)
[2020-06-07] MEDS: METOPROLOL SUCCINATE (ER) 100 MG TAB.ER.24H PO SCH (10:16)
[2020-06-07] MEDS: ASCORBIC ACID 500 MG TAB PO SCH (10:16)
[2020-06-07] MEDS: ASPIRIN 81 MG PO SCH (10:16)
[2020-06-07] MEDS: AMIODARONE 200 MG TAB PO SCH ×2 (10:16→20:07)
[2020-06-07] MEDS: FLUTICASONE 50MCG/SPRAY NASAL 16GM EA NOSTRIL SCH (10:17)
[2020-06-07] MEDS: LORATADINE 10 MG TAB PO SCH (10:17)
[2020-06-07] MEDS: allopurinoL 300 MG TAB PO SCH (10:17)
[2020-06-07] MEDS: MAGNESIUM OXIDE 400 MG TAB PO SCH ×2 (10:17→20:08)
[2020-06-07] MEDS: cycloSPORINE 0.05% OPHTH 0.4 ML DROPERETTE BOTH EYES SCH ×2 (10:18→20:08)
[2020-06-07] MEDS: THIAMINE 100 MG TAB PO SCH (12:54)
[2020-06-07] MEDS: TROSPIUM CHLORIDE 20 MG TABLET PO SCH (12:54)
[2020-06-07] MEDS: METOPROLOL SUCCINATE (ER) 50 MG TAB.ER.24H PO SCH (12:54)
--- NOTE | 2020-06-07 14:38 | P.PN ---
Subjective This is a pleasant 75-year-old male past medical history significant for chronic atrial fibrillation on long-term anticoagulation chronic systolic heart failure, coronary artery disease status post PCI of the RCA, aortic stenosis status post TAVR, COPD, hypertension and dyslipidemia. He follows my office with Dr. Nguyễn. He is seen and examined sitting up in the recliner in no acute distress. He states overall he doesn't feel any different from admission. He continues to feel increased fatigue and shortness of breath. He has ongoing lower extremity edema. Currently maintained on Lasix IV 40 mg 3 times a day, amiodarone 200 mg twice a day, aspirin 81 mg daily, Lipitor 40 mg daily, Toprol-XL 100 mg daily, Aldactone 25 mg daily and warfarin. Blood pressure 110/64 heart rate 88-117 and atrial fibrillation. Laboratory data reviewed, INR 1.9, sodium 134, potassium 4.1, creatinine 0.86. 24-hour urine output is 2250 ML's. Recent echo obtained January 2020 reveals impaired LV systolic function with ejection fraction 30-35%, mild periprosthetic regurgitation of the bioprosthetic aortic valve with a mean gradient of 1.9 mmHg, mild mitral stenosis with a mean gradient across the mitral valve was 3.9 mmHg. 06/07/20 Patient is seen and examined sitting up in the chair in no acute distress. He has ongoing lower extremity edema and continues to feel short of breath. He was able to walk in the halls today, states breathing is the same with walking and rest. His heart rate continues to be mildly rapid. Additional dose of toprol 50mg at 12:00pm was started yesterday, HR improving. Blood pressure 110/76 heart rate 108 afebrile maintaining oxygen saturation on nasal cannula, was 92% on room air this afternoon. Laboratory data reviewed, INR 2.7, sodium 135, potassium 4.1, creatinine 0.94. Weight unchanged from yesterday. 3,300mL urine output today. GENERAL: Well-appearing, well-nourished and in no acute distress. NECK: Supple without JVD or thyromegaly. LUNGS: Bibasilar crackles, poor air exchange, no wheezes or rhonchi. Respiration equal and unlabored. HEART: Irregular rate and rhythm with systolic ejection murmur at the base, no rubs or gallops. S1 and S2 heard. EXTREMITIES: Normal range of motion, 3+ bilateral lower extremity edema up to knees. Sulaiman wraps in place. No clubbing or cyanosis. Peripheral pulses intact. ASSESSMENT Acute on chronic systolic heart failure COPD Atrial fibrillation with rapid ventricular response, unknown if persistent or paroxysmal. Maintained on coumadin. Coronary artery disease status post PCI Aortic stenosis status post TAVR Hypertension Dyslipidemia PLAN -Continue IV diuresis. -Follow renal function and electrolytes in the morning. -Continue to document accurate intake and output along with daily weights. -We will continue to follow and make recommendations accordingly. Nurse Practitioner note has been reviewed, I agree with a documented findings and plan of care. Patient was seen and examined. Objective - Vital Signs Vital signs: Vital Signs Temp 97.4 F L 06/07/20 12:05 Pulse 108 H 06/07/20 12:22 Resp 18 06/07/20 12:05 BP 110/76 06/07/20 12:05 Pulse Ox 92 L 06/07/20 12:05 Intake & Output 06/06/20 06/07/20 06/07/20 18:59 06:59 18:59 Intake Total 300 Output Total 2500 800 600 Balance -2200 -800 -600 Weight 119.3 kg Intake: Oral 300 Output: Urine 2500 800 600 Other: Voiding Method Urinal Urinal Urinal # Voids 2 1 # Bowel Movements 0 - Labs CBC & Chem 7: 06/02/20 14:25 06/07/20 07:04 Labs: Abnormal Lab Results - Last 24 Hours (Table) 06/07/20 06/07/20 Range/Units 07:04 07:04 PT 26.3 H (9.0-12.0) sec INR 2.7 H (<1.2) Sodium 135 L (137-145) mmol/L Chloride 90 L (98-107) mmol/L Carbon Dioxide 39 H (22-30) mmol/L BUN 22 H (9-20) mg/dL Glucose 101 H (74-99) mg/dL
[2020-06-07] MEDS: SODIUM CHLORIDE 0.9% 1,000 ML IV SCH (17:40)
[2020-06-07] MEDS ORDERED: WARFARIN 2.5 MG TAB PO ONE (18:00)
[2020-06-07] MEDS: CYCLOBENZAPRINE 5 MG TAB PO SCH (20:07)
[2020-06-07] MEDS: ATORVASTATIN 40 MG TAB PO SCH (20:07)
[2020-06-07] MEDS: TAMSULOSIN 0.4 MG CAP.ER.24H PO SCH (20:07)
[2020-06-07] MEDS: CYANOCOBALAMIN 500 MCG TAB PO SCH (20:07)
[2020-06-07] MEDS: SPIRONOLACTONE 25 MG TAB PO SCH (20:08)
[2020-06-07] MEDS: MONTELUKAST 10 MG TAB PO SCH (20:08)
[2020-06-08] MEDS: PANTOPRAZOLE 40 MG TABLET PO SCH (06:29)
[2020-06-08 07:47] LABS: INR 2.6 (<1.2); Prothrombin Time 25.3 sec (9.0-12.0)
[2020-06-08 08:05] LABS: Potassium 4.1 mmol/L (3.5-5.1)
[2020-06-08] MEDS: MAGNESIUM OXIDE 400 MG TAB PO SCH ×2 (08:32→20:27)
[2020-06-08] MEDS: ASPIRIN 81 MG PO SCH (08:32)
[2020-06-08] MEDS: CHOLECALCIFEROL 25 MCG (1000 IU) TABLET PO SCH (08:32)
[2020-06-08] MEDS: LORATADINE 10 MG TAB PO SCH (08:32)
[2020-06-08] MEDS: allopurinoL 300 MG TAB PO SCH (08:33)
[2020-06-08] MEDS: FUROSEMIDE 10 MG/ML 4 ML VIAL IV SCH (08:33)
[2020-06-08] MEDS: ASCORBIC ACID 500 MG TAB PO SCH (08:33)
[2020-06-08] MEDS: THIAMINE 100 MG TAB PO SCH (08:33)
[2020-06-08] MEDS: AMIODARONE 200 MG TAB PO SCH ×2 (08:33→20:27)
[2020-06-08] MEDS: FERROUS SULFATE 325 MG TAB PO SCH (08:33)
[2020-06-08] MEDS: FLUTICASONE 50MCG/SPRAY NASAL 16GM EA NOSTRIL SCH (08:38)
[2020-06-08] MEDS: METOPROLOL SUCCINATE (ER) 50 MG TAB.ER.24H PO SCH (08:38)
[2020-06-08] MEDS: cycloSPORINE 0.05% OPHTH 0.4 ML DROPERETTE BOTH EYES SCH ×2 (08:39→20:28)
[2020-06-08] MEDS: TROSPIUM CHLORIDE 20 MG TABLET PO SCH (08:40)
--- NOTE | 2020-06-08 08:45 | XR ---
EXAMINATION TYPE: XR chest 1V DATE OF EXAM: 06/08/2020 COMPARISON: 06/04/2020 HISTORY: 75-year-old male follow-up shortness of breath TECHNIQUE: Single frontal view of the chest is obtained. FINDINGS: Heart mildly enlarged. Endovascular aortic valve replacement is demonstrated. Rounded retrocardiac de nsity compatible with a moderate to large hiatal hernia. Patchy basilar opacities, left greater than right are redemonstrated. Relative upper lung lucencies. No sizable effusion. IMPRESSION: 1. Mild cardiomegaly. Prior endovascular aortic valve replacement. 2. Suspect background of COPD. 3. Patchy basilar atelectasis versus mild infiltrates, left greater the right, not significantly vivar ged.
[2020-06-08] MEDS: DOCUSATE 100 MG CAP PO SCH ×2 (08:49→20:27)
[2020-06-08] MEDS: IPRATROPIUM 0.5 MG/2.5 ML NEBU INHALATION SCH ×4 (08:50→19:46)
[2020-06-08] MEDS: SYMBICORT 160-4.5 MCG INHALER INHALATION SCH ×2 (08:59→19:46)
--- NOTE | 2020-06-08 13:35 | P.PN ---
<RichardsonamdanitzaAlice zuñiga - Last Filed: 06/08/20 12:46> Subjective This is a pleasant 75-year-old male past medical history significant for COPD (chronic 2L O2 at home, chronic atrial fibrillation on coumadin, atrial flutter, heart failure with reduced EF, coronary artery disease s/p PCI and stent placement in RCA, aortic stensosis s/p TAVR, hypertension, hyperlipidemia, and former smoker for 30 years quit in 1993, Patient drinks 2 glasses of wine states each glass is a small wine tumbler 3/4 full. He follows in the office with Dr. Nguyễn. We have been asked to see in consultation for A-fib with RVR and congestive heart failure. Last week, patient received a Covid 19 vaccine on Sunday06/01/20 patient started feeling fatigued, chills, shortness of breath, nonproductive cough, and increased bilateral LE edema. EKG reveals atrial fibrillation with RVR, heart rate 130s. Chest xray hyperinflation suggest COPD the heart is enlarged with tiny bilateral pleural effusions, pulmonary arteries prominent could represent pulmonary artery hypertension. Throughout his hospitalization, he has been diuresed with IV lasix and we increased his metoprolol succinate for rate control. 06/08/20 Today patient is seen and examined sitting in the chair, alert and oriented x 3, in no acute distress, on 2L nasal cannula O2. Patient denies chest pain, palpitations, nausea, vomiting, abdominal pain, headache, lightheadedness, or dizziness. Patient states he felt better yesterday and feels fatigued today, endorses not sleeping. Improvement in shortness of breath, patient able to walk short distances in halls with no complaints. Improvement in lower extremity edema. Laboratory data reviewed, INR 2.6, sodium 139, potassium 4.1, creatinine 1.05 (0.94 yesterday). Weight decreased by 1kg today, total of 2kg since admi ssion. Telemetry reviewed, patient in atrial fibrillation HR 84-103. I/Os: Intake: 716mL Output: 3550mL Balance: -2834mL Current hospital cardiac medications include: amiodarone 200 mg twice a day, aspirin 81 mg daily, atorvastatin 40 mg nightly, Lasix 40mg IV Q8hr, metoprolol succinate 150mg daily, on warfarin DIAGNOSTICS EKG 09/2019- sinus tachycardia EKG 10/2019 office- sinus rhythm EKG 01/2020- atrial flutter with 2:1 conduction EKG 04/2020- atrial fibrillation with RVR TTE 09/2017- EF 50-55% TTE 09/2019- EF 40-45% TTE 01/2020- EF 30-35%, mild periprosthetic regurgitation of the bioprosthetic aortic valve with a mean gradient of 1.9 mmHg, mild mitral stenosis with a mean gradient across the mitral valve was 3.9 mmHg. 05/2017- Right heart catheterization and left heart catheterization- revealed significant disease in RCA and stent placed 05/2019- Left heart catheterization- revealed stable CAD with patient stent in RCA. PHYSICAL EXAMINATION Blood Pressure 101/70 heart rate 98 afebrile, maintaining oxygen saturation on 2L nasal cannula. CONSTITUTIONAL: No apparent distress. HEENT: Head is normocephalic. Pupils are equal, round. Sclerae anicteric. Mucous membranes of the mouth are moist. No carotid bruit. CHEST EXAMINATION: Lungs have diminished air exchange,faint bi-basilar crackles, RUL clear, EL clear. No chest wall tenderness is noted on palpation or with deep breathing. HEART EXAMINATION: Irregular rate and rhythm. S1, S2 heard. No murmurs, gallops or rub. ABDOMEN: Soft, nontender. Positive bowel sounds. EXTREMITIES: 2+ radial pulses bilaterally, 1+ dorsal pedis pulses bialterally, 2+ Pitting edema and no calf tenderness. SKIN: Ecchymosis bilateral arms NEUROLOGIC EXAMINATION: Patient is awake, alert and oriented x3. ASSESSMENT COPD Chronic atrial fibrillation- Unknown at this time if persistent. Per EKGs patient was in sinus rhythm in September and October 2019. In January 2020 patient in atrial flutter and in 2020 patient was in atrial fibrillation with RVR. Patient states his home monitor has read HR irregular and regular, however, this cannot be always accurate. Congestive Heart failure with reduced EF- Patient has been IV diuresed for 5 days with improvement in bilateral lower extremity edema and shortness of breath, able to walk in halls with no complaints. Coronary artery disease s/p PCI and stent placement in RCA Aortic stensosis s/p TAVR Hypertension Hyperlipidemia PLAN -Ok to be discharged, clinically stable from cardiology perspective. -Patient will follow up with Dr. Beckman in the clinic- if patient should be on heart monitor. Patient with consistent decrease in ejection fraction, persistent atrial fibrillation could be causing worsening EF, potential cardioversion vs ablation could be of benefit. If chronic persistent, will most likely continue medical management. -Continue amiodarone 200mg BID for today, If patient still inpatient will transition to amiodarone 200mg daily before discharge- Discharge medications updated. Follow up in clinic for further titrating if needed. -Will transition to home PO Lasix with 80mg daily and 40mg nightly -Patient not on ACEI, BP stable- will start lisinopril 2.5mg PO daily - will start low dose since patient's BP on lower end. -Continue ASA 81mg daily , Atorvastatin 40mg nightly , metoprolol succinate 150mg daily , spironolactone 25mg nightly, and coumadin -I/Os, daily weights -Will continue to monitor renal function and electrolytes Nurse Practitioner note has been reviewed, I agree with a documented findings and plan of care. Patient was seen and examined. Objective - Vital Signs Vital signs: Vital Signs Temp 97.6 F 06/08/20 08:00 Pulse 100 06/08/20 12:20 Resp 16 06/08/20 12:00 BP 101/70 06/08/20 12:00 Pulse Ox 100 06/08/20 12:00 Intake & Output 06/07/20 06/08/20 06/08/20 18:59 06:59 18:59 Intake Total 476 240 222 Output Total 600 2950 Balance -124 -2710 222 Weight 118.8 kg Intake: Oral 476 240 222 Output: Urine 600 2950 Other: Voiding Method Urinal Toilet Toilet Urinal Urinal # Voids 3 - Labs CBC & Chem 7: 06/02/20 14:25 06/08/20 07:00 Labs: Abnormal Lab Results - Last 24 Hours (Table) 06/08/20 06/08/20 Range/Units 07:00 07:00 PT 25.3 H (9.0-12.0) sec INR 2.6 H (<1.2) Chloride 89 L (98-107) mmol/L Carbon Dioxide 42 H* (22-30) mmol/L BUN 27 H (9-20) mg/dL Glucose 113 H (74-99) mg/dL <Nicole,Luciano - Last Filed: 06/08/20 16:25> Subjective Agree with note as above. Patient does not feel stable going home today. We will transition to PO Lasix and monitor for continued output and if looks stable, likely DC home tomorrow. Luciano Nicole DO Objective - Vital Signs Vital signs: Vital Signs Temp 97.6 F 06/08/20 08:00 Pulse 96 06/08/20 16:20 Resp 16 06/08/20 14:00 BP 101/70 06/08/20 12:00 Pulse Ox 100 06/08/20 12:00 Intake & Output 06/07/20 06/08/20 06/08/20 18:59 06:59 18:59 Intake Total 476 240 347 Output Total 600 2950 Balance -124 -2710 347 Weight 118.8 kg Intake: Oral 476 240 347 Output: Urine 600 2950 Other: Voiding Method Urinal Toilet Toilet Urinal Urinal # Voids 3 - Labs CBC & Chem 7: 06/02/20 14:25 06/08/20 07:00 Labs: Abnormal Lab Results - Last 24 Hours (Table) 06/08/20 06/08/20 Range/Units 07:00 07:00 PT 25.3 H (9.0-12.0) sec INR 2.6 H (<1.2) Chloride 89 L (98-107) mmol/L Carbon Dioxide 42 H* (22-30) mmol/L BUN 27 H (9-20) mg/dL Glucose 113 H (74-99) mg/dL
--- NOTE | 2020-06-08 14:08 | P.PN ---
Subjective Mr. Mccullough is a 75-year-old male with a past medical history of atrial fibrillation on anticoagulation now, asthma, coronary artery disease, COPD, diabetes mellitus, GERD, hypertension, hyperlipidemia, osteoarthritis, prostate disorder, obstructive sleep apnea, Presents because of dyspnea per ED triage however when I saw the patient he was lying in chair with legs elevated. His main complaint that made him come to the hospital this acute generalized weakness as he could not stand up from his incliner yesterday, he feels weak all over his body. However he denies dyspnea or coughing for me he denies chest pain. He got his buckley virus shot 4 days ago and he developed some diarrhea but he doesn't have any loose stool over the last 2 days. No urinary symptoms like no dysuria or change in frequency or urgency. No recent upper respiratory tract symptoms. No sick contacts. No dizziness or headache or unilateral weakness or numbness. No blurred vision or slurred speech. He is on 2 L oxygen at home, his hearing stenographer Dr. 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 He sees Dr. Nguyễn his accounting consultant On admission he has low-grade fever of 100.8, he has tachycardia 122, blood pressure 149/66. Last night his blood pressure was 86/56 and currently 102/67 He was 100% on 5 L nonrebreather, currently is a 95% with related to her oxygen. labs showing normal WBC at 5.7K, rest of the CBC is unremarkable, normal hemoglobin at 13.6 and low platelets 132K. INR is elevated at 3.4. Electrolytes and creatinine are within normal limits, liver enzymes not elevated. Troponin is negative less than 0.012. ProBNP is 760. And buckley virus not detected. Chest x-ray: Correlate for CHF versus interstitial pneumonia EKG showing atrial fibrillation's with RVR at 130. In the emergency room he received metoprolol, 1 L of normal 06/04/2020 Patient no significant respiratory distress distal tachypneic but he is improving. He still has bilateral basal crepitation. He is saturating 97% on 3 L oxygen via nasal cannula. Slightly tachycardic at 122. Blood pressure is 91/59. He has low-grade fever of 99.8 today. Labs carbon dioxide is elevated at 35. Sodium and creatinine are within the reference range. Hemoglobin A1c is 6.2%. Troponin is negative. TSH is normal at 1.7. Pro-calcitonin is normal at 0.09 Chest x-ray today: Persistent patchy basilar infiltrates Heart rate still slightly elevated around 122, he remains on amiodarone 200 mg a nd metoprolol 100 mg with cardiology on the case. Blood pressure is borderline We will discontinue the antibiotics of Zithromax and ceftriaxone and monitor his fever while off antibiotics. Keep Lasix and warfarin as per cardiology's recommendation. His INR is subtherapeutic and he will get 5 mg of Coumadin today. Patient is EX-smoker and we are going to monitor his lung function. Also he checks 1-2 beers daily. Add thiamine and Ativan as needed. Currently no signs of local withdrawal. Reyes catheter was discontinued and frequent order bladder scan Patient remains on Lasix 40 mg 3 times a day with cardiology on the case. 06/05/2020 Patient is asymptomatic while sitting in chair, however patient with minimal exertion, no chest pain. His chest is crepitation looks better and he is sat urating 98% on 3 L oxygen via nasal cannula which is his baseline of 2 L oxygen. Legs are wrapped with Sulaiman bandage and cannot be assessed today for leg swelling. His accounting consultant is Dr. Nguyễn History of tachycardic around 110 INR today is 1.9 and dressed of [facility] looks unremarkable. We'll try to get the patient moving around The case with cardiology team today he is not cleared for discharge Yesterday he got 5 mg of Coumadin and same today.. At home he takes 2.5 mg He continued to be on Lasix 40 mg for 3 times a day 06/06/2020 She and sitting in chair most of the time, he feels the same, no shortness of breath with little dyspnea on going to the restroom about 4-5 steps He has less leg swelling, less basal crackles. No significant decrease in his recorded weight. Decreased oxygen requirements to 2 L/m which is his baseline Warfarin is 2.5 today after he got 5 mg yesterday. He is back to 2.5 mg today He continued on Lasix 40 mg 3 times a day this morning 06/07/2020 Patient is still with fluid overload still have crepitation both sides of the lung lower and middle zones. Still have leg swelling on both sides. In chair most of the time. Patient was encouraged to get moving around and he agrees. His INR today is 2.7. Creatinine and electrolytes are normal. He remains on Lasix 40 mg 3 times a day and warfarin 2.5 mg daily. Metoprolol 50 mg was added yesterday and his heart rates is Cardiology team Added yesterday to 50 mg daily and his heart rate is still 100-107. 06/08/2020 Patient clinically looks the same except he feels much better without specification. He does not think that his breathing affected much comfort for the last 2 days and he still have bilateral leg swelling although upon my examination his leg swelling is less and his basilar crepitation or less as well. Vitals and labs are reviewed and it looks stable I discussed the case with cardiology team, patient he thinks he needs one more day of IV Lasix Objective - Vital Signs Vital signs: Vital Signs Temp 97.6 F 06/08/20 08:00 Pulse 100 06/08/20 12:20 Resp 16 06/08/20 14:00 BP 101/70 06/08/20 12:00 Pulse Ox 100 06/08/20 12:00 Intake & Output 06/07/20 06/08/20 06/08/20 18:59 06:59 18:59 Intake Total 476 240 222 Output Total 600 2950 Balance -124 -2710 222 Weight 118.8 kg Intake: Oral 476 240 222 Output: Urine 600 2950 Other: Voiding Method Urinal Toilet Toilet Urinal Urinal # Voids 3 - Exam GENERAL: The patient is alert and oriented x3, not in any acute distress. Well developed, well nourished. HEENT: Pupils are round and equally reacting to light. EOMI. No scleral icterus. No conjunctival pallor. Normocephalic, atraumatic. No pharyngeal erythema. No thyromegaly. CARDIOVASCULAR: S1 and S2 present. No murmurs, rubs, or gallops. -PULMONARY: Chest is clear to auscultation, scattered expiratory wheezing all over with bilateral basal crackles, slightly improved ABDOMEN: Soft, nontender, nondistended, normoactive bowel sounds. No palpable organomegaly. MUSCULOSKELETAL: No joint swelling or deformity. -EXTREMITIES: No cyanosis, clubbing, . 2+ bilateral pitting leg edema NEUROLOGICAL: Gross neurological examination did not reveal any focal deficits. SKIN: No rashes. No petechiae - Labs CBC & Chem 7: 06/02/20 14:25 06/08/20 07:00 Labs: Abnormal Lab Results - Last 24 Hours (Table) 06/08/20 06/08/20 Range/Units 07:00 07:00 PT 25.3 H (9.0-12.0) sec INR 2.6 H (<1.2) Chloride 89 L (98-107) mmol/L Carbon Dioxide 42 H* (22-30) mmol/L BUN 27 H (9-20) mg/dL Glucose 113 H (74-99) mg/dL Assessment and Plan Assessment: Atrial fibrillation with rapid ventricular rate Acute on chronic systolic CHF on admission supra-therapeutic INR, coagulopathy secondary to warfarin Low-grade fever, with tachycardia. [place] its due to recent vaccination and his heart failure rather than pneumonia. No sepsis Patient does not meets SIR S criteria for sepsis CAD status post PCI to RCA Chronic systolic congestive heart failure EF of 30-35% History of aortic stenosis status post aVR in August 2019 Chronic hypoxic respiratory failure due to COPD, on 2 L oxygen via [place] at home COPD not in acute exacerbation Hypertension Hyperlipidemia Obesity with BMI of 37.7 Plan: this is a pleasant 75 years old male who presents with A. fib, CHF. Continue with metoprolol, cardiology consult. Discontinue antibiotic ceftriaxone and Zithromax. Continue with Lasix and Coumadin Labs and medication were reviewed.. Continue same treatment. Continue with symptomatic treatment. Resume home medication. Monitor lytes and vitals. DVT and GI prophylaxis. Further recommendations depends on the clinical course of the patient DVT prophylaxis: On warfarin GI Prophylaxis: Pepcid PT/OT: Pending Prognosis is guarded
[2020-06-08] MEDS ORDERED: WARFARIN 2.5 MG TAB PO ONE (18:00)
[2020-06-08 20:26] VITALS: RESP 18
[2020-06-08] MEDS: MONTELUKAST 10 MG TAB PO SCH (20:27)
[2020-06-08] MEDS: CYCLOBENZAPRINE 5 MG TAB PO SCH (20:27)
[2020-06-08] MEDS: CYANOCOBALAMIN 500 MCG TAB PO SCH (20:27)
[2020-06-08] MEDS: ATORVASTATIN 40 MG TAB PO SCH (20:27)
[2020-06-08] MEDS: SPIRONOLACTONE 25 MG TAB PO SCH (20:27)
[2020-06-08] MEDS: TAMSULOSIN 0.4 MG CAP.ER.24H PO SCH (20:28)
[2020-06-08] MEDS ORDERED: FUROSEMIDE 40 MG TAB PO SCH (21:00)
[2020-06-09] MEDS: SODIUM CHLORIDE 0.9% 1,000 ML IV SCH (01:45)
[2020-06-09 04:56] VITALS: BP 108/67; TEMP 97.6
[2020-06-09 06:20] LABS: INR 2.8 (<1.2); Prothrombin Time 27.4 sec (9.0-12.0)
[2020-06-09] MEDS: DOCUSATE 100 MG CAP PO SCH ×2 (08:17→08:20)
[2020-06-09] MEDS: LORATADINE 10 MG TAB PO SCH (08:17)
[2020-06-09] MEDS: ASCORBIC ACID 500 MG TAB PO SCH (08:17)
[2020-06-09] MEDS: METOPROLOL SUCCINATE (ER) 50 MG TAB.ER.24H PO SCH (08:17)
[2020-06-09] MEDS: TROSPIUM CHLORIDE 20 MG TABLET PO SCH (08:17)
[2020-06-09] MEDS: ASPIRIN 81 MG PO SCH (08:18)
[2020-06-09] MEDS: allopurinoL 300 MG TAB PO SCH (08:18)
[2020-06-09] MEDS: PANTOPRAZOLE 40 MG TABLET PO SCH (08:18)
[2020-06-09] MEDS: FERROUS SULFATE 325 MG TAB PO SCH (08:18)
[2020-06-09] MEDS: MAGNESIUM OXIDE 400 MG TAB PO SCH (08:18)
[2020-06-09] MEDS: CHOLECALCIFEROL 25 MCG (1000 IU) TABLET PO SCH (08:18)
[2020-06-09] MEDS: cycloSPORINE 0.05% OPHTH 0.4 ML DROPERETTE BOTH EYES SCH (08:19)
[2020-06-09] MEDS: FLUTICASONE 50MCG/SPRAY NASAL 16GM EA NOSTRIL SCH (08:19)
[2020-06-09] MEDS: THIAMINE 100 MG TAB PO SCH (08:19)
[2020-06-09] MEDS: IPRATROPIUM 0.5 MG/2.5 ML NEBU INHALATION SCH (08:22)
[2020-06-09] MEDS: AMIODARONE 200 MG TAB PO SCH (08:41)
[2020-06-09] MEDS ORDERED: FUROSEMIDE 80 MG TAB PO SCH (09:00)
[2020-06-09 11:01] VITALS: PULSE 109
[2020-06-09] MEDS ORDERED: WARFARIN 2 MG TAB PO ONE (18:00)
--- NOTE | 2020-06-10 07:09 | P.DS ---
Providers Date of admission: 06/04/20 08:58 Attending physician: Nila Carrero Primary care physician: [facility] Hospital Course: Diagnoses: Atrial fibrillation with rapid ventricular rate Acute on chronic systolic CHF on admission supra-therapeutic INR, coagulopathy secondary to warfarin Low-grade fever, with tachycardia. [place] its due to recent vaccination and his heart failure rather than pneumonia. No sepsis Patient does not meets SIR S criteria for sepsis CAD status post PCI to RCA Chronic systolic congestive heart failure EF of 30-35% History of aortic stenosis status post aVR in August 2019 Chronic hypoxic respiratory failure due to COPD, on 2 L oxygen via NC at home COPD not in acute exacerbation Hypertension Hyperlipidemia Obesity with BMI of 37.7 Hospital course: Mr. Mccullough is a 75-year-old male with a past medical history of atrial fib rillation on anticoagulation now, asthma, coronary artery disease, COPD, diabetes mellitus, GERD, hypertension, hyperlipidemia, osteoarthritis, prostate disorder, obstructive sleep apnea, Presents because of dyspnea per ED triage however when I saw the patient he was lying in chair with legs elevated. His main complaint that made him come to the hospital this acute generalized weakness as he could not stand up from his incliner he feels weak all over his body. However he denies dyspnea or coughing for me he denies chest pain. On admission he was found to be in A. fib and RVR and acute on chronic systolic CHF with ejection fraction 30-55%. He was treated with Lasix IV 40 mg 3 times a day. While his A. fib was controlled when his metoprolol dose increased to 150 mg daily and amiodarone dose decreased to 200 mg twice a day and lisinopril added. On the day of discharge patient he feels much better. He denies chest pain or dyspnea. No coughing. No abdominal pain. No diarrhea. No fever. No dysuria Patient feels better and he wants to go home today Patient was cleared for discharge by fisher weir who recommended to start Lasix 80 mg daily and 40 mg at bedtime as well as other medication as above he was discharged on his home dose of oxygen 2 L/m via nasal cannula He was taken warfarin 2.5 mg every day except on one day's worth milligrams. Upon discharge patient was instructed to use 2.5 mg every day. He agrees and a prescription is provided Problems and management plan were discussed with the patient and he verbalized understanding and acceptance Patient was found stable and can be discharged home however he needs follow-up as an outpatient. Patient [facility] and patient agrees. Also patient was instructed to follow up with his fisher weir Dr. Nguyễn in 1-2 weeks and he agrees with the appointments made for him Physical exam Gen: patient is a AAOx3, no distress CVS: S1-S2, RRR, no murmur Lungs: B/L CTA, no wheezing Abdomen: soft, no distention, no tenderness, positive bowel sounds Extremity: no leg edema or induration Time spent more than 35 minutes Patient Condition at Discharge: Fair Plan - Discharge Summary Discharge Rx Participant: Yes New Discharge Prescriptions: New Furosemide [Lasix] 40 mg PO HS tab Metoprolol Succinate (ER) [Toprol XL] 150 mg PO DAILY 90 Days #90 tab Lisinopril [Zestril] 2.5 mg PO DAILY 90 Days #90 tab Atorvastatin [Lipitor] 40 mg PO HS tab Warfarin [Coumadin] 2.5 mg PO DAILY #30 tab Furosemide [Lasix] 80 mg PO DAILY #30 tab lisinopriL [Zestril] 2.5 mg PO DAILY #30 tab Continue Montelukast [Singulair] 10 mg PO HS Tamsulosin [Flomax] 0.4 mg PO HS Spironolactone 25 mg PO HS Loratadine [Claritin] 10 mg PO DAILY Fluticasone Nasal [place] [Flonase Nasal [place]] 2 spr EA NOSTRIL DAILY Tiotropium 18 Mcg/Puff [Spiriva] 1 cap INHALATION RT-HS Budesonide-Formot 160-4.5 Mcg [Symbicort 160-4.5 Mcg Inhaler] 2 puff INHALATION RT-BID Solifenacin Succinate [Vesicare] 5 mg PO DAILY Aspirin EC [Ecotrin Low Dose] 81 mg PO DAILY Docusate [Colace] 200 mg PO DAILY Magnesium 250 mg PO BID Esomeprazole Magnesium [NexIUM] 40 mg PO DAILY Potassium Chloride 10 meq PO BID Ferrous Sulfate [Iron (65 MG Elemental)] 325 mg PO DAILY Furosemide [Lasix] 80 mg PO DAILY cycloSPORINE [Restasis] 1 drop BOTH EYES BID allopurinoL [Zyloprim] 300 mg PO DAILY Nitroglycerin Sl Tabs [Nitrostat] 0.4 mg SL Q5M PRN PRN Reason: Chest Pain Cyclobenzaprine [Flexeril] 5 mg PO HS Docusate [Colace] 100 mg PO HS Cyanocobalamin (Vitamin B-12) [Vitamin B-12] 2,500 mcg PO HS Cholecalciferol [Vitamin D3 (25 Mcg = 1000 Iu)] 75 mcg PO DAILY Ascorbic Acid [Vitamin C] 1,000 mg PO DAILY Discontinued Atorvastatin [Lipitor] 40 mg PO HS Metoprolol Succinate (ER) [Toprol XL] 100 mg PO DAILY #30 tab.er.24h Furosemide [Lasix] 40 mg PO HS Warfarin [Coumadin] 2.5 mg PO [id number]@2100 Warfarin Sodium 5 mg PO TH@2100 Amiodarone [Cordarone] 200 mg PO BID Discharge Medication List Montelukast [Singulair] 10 mg PO HS 09/09/13 [History] Tamsulosin [Flomax] 0.4 mg PO HS 09/09/13 [History] Spironolactone 25 mg PO HS 04/03/14 [History] Budesonide-Formot 160-4.5 Mcg [Symbicort 160-4.5 Mcg Inhaler] 2 puff INHALATION RT-BID 08/07/16 [History] Fluticasone Nasal [place] [Flonase Nasal [place]] 2 spr EA NOSTRIL DAILY 08/07/16 [H istory] Loratadine [Claritin] 10 mg PO DAILY 08/07/16 [History] Tiotropium 18 Mcg/Puff [Spiriva] 1 cap INHALATION RT-HS 08/07/16 [History] Solifenacin Succinate [Vesicare] 5 mg PO DAILY 05/02/17 [History] Aspirin EC [Ecotrin Low Dose] 81 mg PO DAILY 09/12/17 [History] Docusate [Colace] 200 mg PO DAILY 05/30/19 [History] Esomeprazole Magnesium [NexIUM] 40 mg PO DAILY 10/03/19 [History] Ferrous Sulfate [Iron (65 MG Elemental)] 325 mg PO DAILY 10/03/19 [History] Furosemide [Lasix] 80 mg PO DAILY 10/03/19 [History] Magnesium 250 mg PO BID 10/03/19 [History] Potassium Chloride 10 meq PO BID 10/03/19 [History] cycloSPORINE [Restasis] 1 drop BOTH EYES BID 01/15/20 [History] Nitroglycerin Sl Tabs [Nitrostat] 0.4 mg SL Q5M PRN 04/16/20 [History] allopurinoL [Zyloprim] 300 mg PO DAILY 04/16/20 [History] Ascorbic Acid [Vitamin C] 1,000 mg PO DAILY 06/02/20 [History] Cholecalciferol [Vitamin D3 (25 Mcg = 1000 Iu)] 75 mcg PO DAILY 06/02/20 [History] Cyanocobalamin (Vitamin B-12) [Vitamin B-12] 2,500 mcg PO HS 06/02/20 [History] Cyclobenzaprine [Flexeril] 5 mg PO HS 06/02/20 [History] Docusate [Colace] 100 mg PO HS 06/02/20 [History] Atorvastatin [Lipitor] 40 mg PO HS tab 06/08/20 [Rx] Furosemide [Lasix] 40 mg PO HS tab 06/08/20 [Rx] Lisinopril [Zestril] 2.5 mg PO DAILY 90 Days #90 tab 06/08/20 [Rx] Metoprolol Succinate (ER) [Toprol XL] 150 mg PO DAILY 90 Days #90 tab 06/08/20 [Rx] Furosemide [Lasix] 80 mg PO DAILY #30 tab 06/09/20 [Rx] Warfarin [Coumadin] 2.5 mg PO DAILY #30 tab 06/09/20 [Rx] lisinopriL [Zestril] 2.5 mg PO DAILY #30 tab 06/09/20 [Rx] Follow up Appointment(s)/Referral(s): Ajith Nguyễn MD [STAFF PHYSICIAN] - 06/24/20 11:[address] [facility],Clinic [Primary Care Provider] - 1-2 days (The office will call you with an appointment time and date.) Patient Instructions/Handouts: Metoprolol (By mouth), Lisinopril (By mouth), Furosemide (By mouth), Warfarin (By mouth), A-fib (Atrial Fibrillation) (DC) Activity/Diet/Wound Care/Special Instructions: [facility] was [facility] to them, but they will have to assign the Home care. Discharge Disposition: HOME WITH HOME HEALTH SERVICES
== END 2020-06-09 12:02 | disposition home health service (06) | DRG 308 ==
LOC: EC 13:25 → 3SCARD 15:11 → OBSVTOIN 06-04 08:58 → 5NMEDONC 06-09 01:39
PROVIDERS: ADMIT Hospitalist; ATTEND Hospitalist
DX: I48.20 Chronic atrial fibrillation, unspecified (principal); I50.23 Acute on chronic systolic (congestive) heart failure; J44.1 Chronic obstructive pulmonary disease with (acute) exacerbation; J96.11 Chronic respiratory failure with hypoxia; I11.0 Hypertensive heart disease with heart failure; I45.89 Other specified conduction disorders; I47.2 Ventricular tachycardia; I48.92 Unspecified atrial flutter; I42.9 Cardiomyopathy, unspecified; I95.9 Hypotension, unspecified; I27.22 Pulmonary hypertension due to left heart disease; D69.6 Thrombocytopenia, unspecified; E11.9 Type 2 diabetes mellitus without complications; Z20.822 Contact with and (suspected) exposure to COVID-19; E78.5 Hyperlipidemia, unspecified; H91.90 Unspecified hearing loss, unspecified ear; I25.10 Atherosclerotic heart disease of native coronary artery without angina pectoris; K21.9 Gastro-esophageal reflux disease without esophagitis; M19.90 Unspecified osteoarthritis, unspecified site; K44.9 Diaphragmatic hernia without obstruction or gangrene; E66.9 Obesity, unspecified; R50.83 Postvaccination fever; I08.0 Rheumatic disorders of both mitral and aortic valves; G47.33 Obstructive sleep apnea (adult) (pediatric); R79.1 Abnormal coagulation profile; T50.B95A Adverse effect of other viral vaccines, initial encounter; T45.515A Adverse effect of anticoagulants, initial encounter; Z68.37 Body mass index [BMI] 37.0-37.9, adult; Z79.899 Other long term (current) drug therapy; Z79.51 Long term (current) use of inhaled steroids; Z79.82 Long term (current) use of aspirin; Z79.01 Long term (current) use of anticoagulants; Z87.01 Personal history of pneumonia (recurrent); Z85.46 Personal history of malignant neoplasm of prostate; Z87.442 Personal history of urinary calculi; Z95.5 Presence of coronary angioplasty implant and graft; Z98.890 Other specified postprocedural states; Z90.49 Acquired absence of other specified parts of digestive tract; Z98.42 Cataract extraction status, left eye; Z98.41 Cataract extraction status, right eye; Z87.891 Personal history of nicotine dependence; Z99.81 Dependence on supplemental oxygen; Z95.2 Presence of prosthetic heart valve; Z88.8 Allergy status to other drugs, medicaments and biological substances; Z83.79 Family history of other diseases of the digestive system
CPT/HCPCS: 36415; 51702; 71045; 80048; 80053; 83036; 83735; 83880; 84145; 84443; 84484; 85025; 85610; 87502; 87635; 93005; 94640; 94760; 96361; 96374; 96376; 99285

== ENCOUNTER 2020-06-16 19:32 | Emergency (ER) | payer MEDICARE ==
[2020-06-16 19:40] VITALS: RESP 19; TEMP 97.9
[2020-06-16] MEDS ORDERED: TOPICAL SKIN ADHESIVE 1 EACH AMP TOPICAL ONE (20:29)
--- NOTE | 2020-06-16 20:32 | ED ---
General Adult HPI - General Chief complaint: Fall Stated complaint: Fall, R knee injury Time Seen by Provider: 06/16/20 20:00 Source: patient, RN notes reviewed Mode of arrival: ambulatory - History of Present Illness Initial comments: Patient is a pleasant 75-year-old male presenting to the emergency Department with complaints of right knee discomfort following a fall. Patient states he was drinking too much. Patient fell forward. Patient did strike his knee and patient did strike his nose after that. No loss of consciousness. No headache or confusion. No neck pain. No back pain. No chest pain or dyspnea. No abdominal pain. Last tetanus immunization was within the past year or 2. Patient is on blood thinners for history of irregular heartbeat - Related Data Home Medications Medication Instructions Recorded Confirmed Montelukast [Singulair] 10 mg PO HS 09/09/13 06/02/20 Tamsulosin [Flomax] 0.4 mg PO HS 09/09/13 06/02/20 Spironolactone 25 mg PO HS 04/03/14 06/02/20 Budesonide-Formot 160-4.5 Mcg 2 puff INHALATION RT-BID 08/07/16 06/02/20 [Symbicort 160-4.5 Mcg Inhaler] Fluticasone Nasal [place] [Flonase 2 spr EA NOSTRIL DAILY 08/07/16 06/02/20 Nasal [place]] Loratadine [Claritin] 10 mg PO DAILY 08/07/16 06/02/20 Tiotropium 18 Mcg/Puff [Spiriva] 1 cap INHALATION RT-HS 08/07/16 06/02/20 Solifenacin Succinate [Vesicare] 5 mg PO DAILY 05/02/17 06/02/20 Aspirin EC [Ecotrin Low Dose] 81 mg PO DAILY 09/12/17 06/02/20 Docusate [Colace] 200 mg PO DAILY 05/30/19 06/02/20 Esomeprazole Magnesium [NexIUM] 40 mg PO DAILY 10/03/19 06/02/20 Ferrous Sulfate [Iron (65 MG 325 mg PO DAILY 10/03/19 06/02/20 Elemental)] Furosemide [Lasix] 80 mg PO DAILY 10/03/19 06/02/20 Magnesium 250 mg PO BID 10/03/19 06/02/20 Potassium Chloride 10 meq PO BID 10/03/19 06/02/20 cycloSPORINE [Restasis] 1 drop BOTH EYES BID 01/15/20 06/02/20 Nitroglycerin Sl Tabs [Nitrostat] 0.4 mg SL Q5M PRN 04/16/20 06/02/20 allopurinoL [Zyloprim] 300 mg PO DAILY 04/16/20 06/02/20 Ascorbic Acid [Vitamin C] 1,000 mg PO DAILY 06/02/20 06/02/20 Cholecalciferol [Vitamin D3 (25 75 mcg PO DAILY 06/02/20 06/02/20 Mcg = 1000 Iu)] Cyanocobalamin (Vitamin B-12) 2,500 mcg PO HS 06/02/20 06/02/20 [Vitamin B-12] Cyclobenzaprine [Flexeril] 5 mg PO HS 06/02/20 06/02/20 Docusate [Colace] 100 mg PO HS 06/02/20 06/02/20 Previous Rx's Medication Instructions Recorded Atorvastatin [Lipitor] 40 mg PO HS tab 06/08/20 Furosemide [Lasix] 40 mg PO HS tab 06/08/20 Lisinopril [Zestril] 2.5 mg PO DAILY 90 Days #90 tab 06/08/20 Metoprolol Succinate (ER) [Toprol 150 mg PO DAILY 90 Days #90 tab 06/08/20 XL] Furosemide [Lasix] 80 mg PO DAILY #30 tab 06/09/20 Warfarin [Coumadin] 2.5 mg PO DAILY #30 tab 06/09/20 lisinopriL [Zestril] 2.5 mg PO DAILY #30 tab 06/09/20 Allergies Allergy/AdvReac Type Severity Reaction Status Date / Time [id number]-Gfq-Rkg Reductase Allergy Mild Rash/Hives Verified 06/16/20 19:40 Inhibitor Review of Systems ROS Statement: Those systems with pertinent positive or pertinent negative responses have been documented in the HPI. ROS Other: All systems not noted in ROS Statement are negative. Constitutional: Denies: fever Eyes: Denies: eye pain ENT: Denies: ear pain Respiratory: Denies: cough, dyspnea Cardiovascular: Denies: chest pain Endocrine: Denies: fatigue Gastrointestinal: Denies: abdominal pain Genitourinary: Denies: dysuria Musculoskeletal: Reports: as per HPI. Denies: back pain Skin: Denies: rash Neurological: Denies: headache Psychiatric: Reports: other (Laceration below right knee) Past Medical History Past Medical History: Atrial Fibrillation, Asthma, Coronary Artery Disease (CAD), Cancer, COPD, Diabetes Mellitus, GERD/Reflux, Hearing Disorder / Deafness, Hyperlipidemia, Hypertension, Osteoarthritis (OA), Pneumonia, Prostate Disorder, Sleep Apnea/CPAP/BIPAP, Vascular Disorder Additional Past Medical History / Comment(s): Prostate cancer. see Dr Nguyễn H&P FOR CARDIAC HISTORY , O2 2L PRN AND AT BEDTIME , hiatal hernia, kidney stones, "bad back", past a fib cardiomyopathy aortic stenosis, PRE- DIABETIC -DIET CONTROLLED, aortic valve replacment 09/03 History of Any Multi-Drug Resistant Organisms: None Reported Past Surgical History: Ablation, Bladder Surgery, Cholecystectomy, Heart Catheterization With Stent, Hernia Repair, Tonsillectomy Additional Past Surgical History / Comment(s): CARDIOVERSION, MUKESH FEMORAL BYPASS SURGERY, MUKESH.inguinal hernia, UMBILICAL HERNIA REPAIR, surgery for PILONIDAL CYST, mukesh CATARACTS, ARCH/AORTOGRAM, cystoscopy for KIDNEY STONE REMOVAL x 3, LT CAROTID ENDARTECTOMY. BRAYDEN 05/10/17, 06/06, 06/04/19, 2 stents to the RCA Past Anesthesia/Blood Transfusion Reactions: No Reported Reaction Date of Last Stent Placement:: 06/06/18 Past Psychological History: No Psychological Hx Reported Smoking Status: Former smoker Past Alcohol Use History: Daily - Past Family History Father Family Medical History: Liver Disease Mother Family Medical History: No Reported History Additional Family Medical History / Comment(s): . General Exam Limitations: no limitations General appearance: alert, in no apparent distress Head exam: Present: atraumatic, normocephalic, other (No nasal bone tenderness) Eye exam: Present: normal appearance, PERRL, EOMI ENT exam: Present: normal exam Neck exam: Present: normal inspection. Absent: tenderness Respiratory exam: Present: normal lung sounds bilaterally Cardiovascular Exam: Present: regular rate, normal rhythm GI/Abdominal exam: Present: soft. Absent: tenderness Extremities exam: Present: normal inspection, full ROM. Absent: tenderness Back exam: Present: normal inspection Neurological exam: Present: alert, oriented X3, CN II-XII intact. Absent: motor sensory deficit Expanded Neurological exam: Present: protecting the airway Patient oriented to: Present: person, place, time Speech: Present: fluid speech Motor strength exam: RUE: 5, LUE: 5, RLE: 5, LLE: 5 Eye Response: (4) open spontaneously Motor Response: (6) obeys commands Verbal Response: (5) oriented Psychiatric exam: Present: normal affect, normal mood Skin exam: Present: other (Skin tear near the right elbow. Skin tear/laceration below the right knee) Course Vital Signs 06/16/20 19:36 Temperature 97.9 F Pulse Rate 102 H Respiratory 19 Rate Blood Pressure 119/62 O2 Sat by Pulse 98 Oximetry - Reevaluation(s) Reevaluation #1: 06/16/20 20:31 Secondary to patient's thin skin decision was made not to repair with sutures. Procedures - Laceration Laceration #1 Consent Obtained: verbal consent Indication: laceration Site: lower extremity (Below the right knee) Description: linear Depth: simple, single layer Pre-repair: wound explored, irrigated extensively Type of Sutures: other (Closed with Dermabond. Steri-Strips also placed) Patient Tolerated Procedure: well, no complications Medical Decision Making - Radiology Data Radiology results: report reviewed (Computed tomography scan of the brain and ce rvical spine shows no fracture. No hemorrhage or mass effect or other acute abnormality.), image reviewed Disposition Clinical Impression: Leg laceration Disposition: HOME SELF-CARE Condition: Stable Instructions (If sedation given, give patient instructions): Head Injury (ED), Skin Adhesive Care (ED) Additional Instructions: Discharge to sober drivers license examiner. Please follow-up with primary care physician in the next day or 2 for recheck. Return for change in mental status, redness or swelling, weakness or confusion, worsening symptoms or any other concerns. Is patient prescribed a controlled substance at d/c from ED?: No Referrals: [facility],Clinic [Primary Care Provider] - 1-2 days Time of Disposition: 21:38
--- NOTE | 2020-06-16 20:56 | CT ---
EXAMINATION TYPE: CT brain cspine wo con DATE OF EXAM: 06/16/2020 COMPARISON: HISTORY: pt fall CT DLP: 1843.2 mGycm Automated exposure control for dose reduction was used. TECHNIQUE: CT scan of the head and cervical spine are performed without contrast. FINDINGS: There is no acute intracranial hemorrhage, mass effect, or midline shift identified. The ventricles and sulci are within normal limits in size. The globes are intact and the visualized sin uses are clear. Cervical spine is visualized in its entirety from C1 through upper thoracic levels and demonstrates s atisfactory alignment without evidence of acute fracture or dislocation. Prevertebral soft tissue ap pears within normal limits. The C1-C2 articulation is unremarkable. IMPRESSION: 1. There is no acute fracture or dislocation evident in the cervical spine. 2. No acute intracranial hemorrhage, mass effect, or midline shift is seen.
--- NOTE | 2020-06-16 20:59 | XR ---
EXAMINATION TYPE: XR knee complete RT DATE OF EXAM: 06/16/2020 CLINICAL HISTORY: Fall. Knee pain. TECHNIQUE: Three views of the right knee are obtained. COMPARISON: None. FINDINGS: There is no acute fracture/dislocation evident in right knee. The tri-compartment joint s paces appear within normal limits. The overlying soft tissue appears unremarkable. Heavy atherosclerotic calcification is seen in the right superficial femoral artery at the abductor c anal likely causing high-grade stenosis. IMPRESSION: No acute fracture or subluxation of the right knee. High-grade stenosis of the right SFA is suspected based on calcium load on the vessel. Screening lower extremity YING and carotid duplex on a routine basis is recommended.
[2020-06-16 22:09] VITALS: BP 125/68; PULSE 98
== END 2020-06-16 22:09 | disposition home or self-care (01) ==
LOC: EC 19:32
DX: S81.811A Laceration without foreign body, right lower leg, initial encounter (principal); E78.5 Hyperlipidemia, unspecified; I10 Essential (primary) hypertension; I25.10 Atherosclerotic heart disease of native coronary artery without angina pectoris; I48.91 Unspecified atrial fibrillation; J44.9 Chronic obstructive pulmonary disease, unspecified; K21.9 Gastro-esophageal reflux disease without esophagitis; M19.90 Unspecified osteoarthritis, unspecified site; Z79.51 Long term (current) use of inhaled steroids; Z79.82 Long term (current) use of aspirin; Z79.899 Other long term (current) drug therapy; Z85.46 Personal history of malignant neoplasm of prostate; Z87.891 Personal history of nicotine dependence; W19.XXXA Unspecified fall, initial encounter
CPT/HCPCS: 70450; 72125; 99284

== ENCOUNTER 2020-06-20 10:58 | Inpatient (IN) | payer MEDICARE ==
[2020-06-20] MEDS ORDERED: ONDANSETRON 4 MG/2 ML VIAL IVP STA (11:11)
[2020-06-20] MEDS ORDERED: MORPHINE SULFATE 4 MG/ML SYRINGE IVP STA (11:11)
--- NOTE | 2020-06-20 11:12 | ED ---
Lower Extremity Injury HPI - General Source: patient, EMS Mode of arrival: EMS Limitations: physical limitation <Toyin Schultz - Last Filed: 06/20/20 12:47> <Danika Smalls - Last Filed: 06/22/20 23:16> - General Chief Complaint: Extremity Injury, Lower Stated Complaint: Fall Time Seen by Provider: 06/20/20 10:59 - History of Present Illness Initial Comments: 75-year-old male patient presents to the emergency department today for evaluation of worsening right lower leg pain and knee pain. Patient experienced a fall 4 days ago injuring the knee. States he was intoxicated and lost his balance. Patient did present to the emergency department and underwent evaluation. He did sustain a laceration to the knee that was repaired with skin adhesive and steri strips. Patient states that over the last few days the bruising to the right knee and lower leg worsened. States that he is having increased pain to the leg. States that he cannot move his foot or bend the knee. He denies any numbness or tingling to the leg or foot. He does take coumadin. Denies any fever or chills. Patient denies any headache, neck pain, back pain, chest pain, shortness of breath, dizziness, weakness, abdominal pain, nausea, vomiting, or difficulties with bowel movements or urination. (Toyin Schultz) - Related Data Home Medications Medication Instructions Recorded Confirmed Montelukast [Singulair] 10 mg PO HS 09/09/13 06/20/20 Tamsulosin [Flomax] 0.4 mg PO HS 09/09/13 06/20/20 Spironolactone 25 mg PO HS 04/03/14 06/20/20 Budesonide-Formot 160-4.5 Mcg 2 puff INHALATION RT-BID 08/07/16 06/20/20 [Symbicort 160-4.5 Mcg Inhaler] Fluticasone Nasal [place] [Flonase 2 spr EA NOSTRIL DAILY 08/07/16 06/20/20 Nasal [place]] Loratadine [Claritin] 10 mg PO DAILY 08/07/16 06/20/20 Tiotropium 18 Mcg/Puff [Spiriva] 1 cap INHALATION RT-HS 08/07/16 06/20/20 Solifenacin Succinate [Vesicare] 5 mg PO DAILY 05/02/17 06/20/20 Aspirin EC [Ecotrin Low Dose] 81 mg PO DAILY 09/12/17 06/20/20 Docusate [Colace] 200 mg PO DAILY 05/30/19 06/20/20 Esomeprazole Magnesium [NexIUM] 40 mg PO DAILY 10/03/19 06/20/20 Ferrous Sulfate [Iron (65 MG 325 mg PO DAILY 10/03/19 06/20/20 Elemental)] Magnesium 250 mg PO BID 10/03/19 06/20/20 Potassium Chloride 10 meq PO BID 10/03/19 06/20/20 cycloSPORINE [Restasis] 1 drop BOTH EYES BID 01/15/20 06/20/20 Nitroglycerin Sl Tabs [Nitrostat] 0.4 mg SL Q5M PRN 04/16/20 06/20/20 allopurinoL [Zyloprim] 300 mg PO DAILY 04/16/20 06/20/20 Ascorbic Acid [Vitamin C] 1,000 mg PO DAILY 06/02/20 06/20/20 Cholecalciferol [Vitamin D3 (25 75 mcg PO DAILY 06/02/20 06/20/20 Mcg = 1000 Iu)] Cyanocobalamin (Vitamin B-12) 2,500 mcg PO HS 06/02/20 06/20/20 [Vitamin B-12] Cyclobenzaprine [Flexeril] 5 mg PO HS 06/02/20 06/20/20 Docusate [Colace] 100 mg PO HS 06/02/20 06/20/20 Previous Rx's Medication Instructions Recorded Atorvastatin [Lipitor] 40 mg PO HS tab 06/08/20 Furosemide [Lasix] 40 mg PO HS tab 06/08/20 Metoprolol Succinate (ER) [Toprol 150 mg PO DAILY 90 Days #90 tab 06/08/20 XL] Furosemide [Lasix] 80 mg PO DAILY #30 tab 06/09/20 Warfarin [Coumadin] 2.5 mg PO DAILY #30 tab 06/09/20 lisinopriL [Zestril] 2.5 mg PO DAILY #30 tab 06/09/20 Allergies Allergy/AdvReac Type Severity Reaction Status Date / Time Nziddvg-[id number]-Vws Reductase Allergy Mild Rash/Hives Verified 06/20/20 13:31 Inhibitor Review of Systems ROS Other: All systems not noted in ROS Statement are negative. <Toyin Schultz - Last Filed: 06/20/20 12:47> ROS Other: All systems not noted in ROS Statement are negative. <JohnniezaraDanika Carri - Last Filed: 06/22/20 23:16> ROS Statement: Those systems with pertinent positive or pertinent negative responses have been documented in the HPI. Past Medical History Past Medical History: Atrial Fibrillation, Asthma, Coronary Artery Disease (CAD), Cancer, COPD, Diabetes Mellitus, GERD/Reflux, Hearing Disorder / Deafness, Hyperlipidemia, Hypertension, Osteoarthritis (OA), Pneumonia, Prostate Disorder, Sleep Apnea/CPAP/BIPAP, Vascular Disorder Additional Past Medical History / Comment(s): Prostate cancer. see Dr Nguyễn H&P FOR CARDIAC HISTORY , O2 2L PRN AND AT BEDTIME , hiatal hernia, kidney stones, "bad back", past a fib cardiomyopathy aortic stenosis, PRE- DIABETIC -DIET CONTROLLED, aortic valve replacment 09/03 History of Any Multi-Drug Resistant Organisms: None Reported Past Surgical History: Ablation, Bladder Surgery, Cholecystectomy, Heart Catheterization With Stent, Hernia Repair, Tonsillectomy Additional Past Surgical History / Comment(s): CARDIOVERSION, MUKESH FEMORAL BYPASS SURGERY, MUKESH.inguinal hernia, UMBILICAL HERNIA REPAIR, surgery for PILONIDAL CYST, mukesh CATARACTS, ARCH/AORTOGRAM, cystoscopy for KIDNEY STONE REMOVAL x 3, LT CAROTID ENDARTECTOMY. BRAYDEN 05/10/17, 06/06, 06/04/19, 2 stents to the RCA Past Anesthesia/Blood Transfusion Reactions: No Reported Reaction Date of Last Stent Placement:: 06/06/18 Past Psychological History: No Psychological Hx Reported Smoking Status: Former smoker Past Alcohol Use History: Heavy, Occasional Past Drug Use History: None Reported - Past Family History Father Family Medical History: Liver Disease Mother Family Medical History: No Reported History Additional Family Medical History / Comment(s): . <Toyin Schultz - Last Filed: 06/20/20 12:47> General Exam Limitations: physical limitation General appearance: alert, in no apparent distress, other (Physical well- developed, well-nourished elderly male patient in no acute distress. Vital signs upon presentation are temperature 97.9F a pulse 111, respirations 18, blood pressure 104/64, pulse ox 95% on room air.) Eye exam: Present: normal appearance, PERRL, EOMI. Absent: scleral icterus, conjunctival injection, periorbital swelling ENT exam: Present: normal exam, normal oropharynx, mucous membranes moist Respiratory exam: Present: normal lung sounds bilaterally. Absent: respiratory distress, wheezes, rales, rhonchi, stridor Cardiovascular Exam: Present: regular rate, normal rhythm, normal heart sounds. Absent: systolic murmur, diastolic murmur, rubs, gallop, clicks GI/Abdominal exam: Present: soft, normal bowel sounds. Absent: distended, tenderness, guarding, rebound, rigid Extremities exam: Present: normal capillary refill, other (Right lower leg swelling, dark purple ecchymosis over the anterior aspect, there is a bulla over the proximal anterior lower leg. Skin is pink, warm, dry. Cap refill less than 3 seconds. There is pedal edema. Pedal pulses present, found easily with doppler.). Absent: pedal edema, joint swelling, calf tenderness Neurological exam: Present: alert, oriented X3, CN II-XII intact Psychiatric exam: Present: normal affect, normal mood Skin exam: Present: warm, dry, intact, normal color. Absent: rash <Toyin Schultz - Last Filed: 06/20/20 12:47> Course Vital Signs 06/20/20 06/20/20 06/20/20 11:06 11:31 13:08 Temperature 97.9 F Pulse Rate 111 H 110 H 108 H Respiratory 18 18 18 Rate Blood Pressure 104/64 102/64 90/74 O2 Sat by Pulse 95 92 L 92 L Oximetry Medical Decision Making - Lab Data Result diagrams: 06/20/20 11:28 06/20/20 11:28 <Toyin Schultz - Last Filed: 06/20/20 12:47> - Lab Data Result diagrams: 06/22/20 04:12 06/22/20 04:12 <Danika Smalls - Last Filed: 06/22/20 23:16> - Medical Decision Making 75-year-old male patient presents to the emergency department today for evaluation of right leg pain and increased swelling. Patient had fall with traumatic injury to the right knee 4 days ago. Physical examination reveals significant edema to the right lower leg with a large hematoma to the right lateral lower leg. Cap refill is less than 3 seconds, pedal pulses found easily with the Doppler. He is unable to bear weight or walk due to the pain. He'll be admitted to the hospital for PT OT evaluation as well as orthopedic consult. Case discussed wt Dr. Molina who accepts admission. His discussed with my attending Dr. Smalls. (Toyin Schultz) I was available for consultation in the emergency department. The history and physical exam were done by the midlevel provider. I was consulted for this patie nts care. I reviewed the case with the midlevel provider and based on their presentation of the patient, I agree with the assessment, medical decision making and plan of care as documented. Chart was dictated using [employer] dictation software. Attempts were made to correct any dictation errors however some typographical errors may persist. (Danika Smalls) - Lab Data Lab Results 06/20/20 06/20/20 06/20/20 Range/Units 11:28 11:28 11:28 WBC 7.8 (3.8-10.6) k/uL RBC 3.25 L (4.30-5.90) m/uL Hgb 10.5 L D (13.0-17.5) gm/dL Hct 33.4 L (39.0-53.0) % MCV 102.8 H (80.0-100.0) fL MCH 32.3 (25.0-35.0) pg MCHC 31.4 (31.0-37.0) g/dL RDW 14.9 (11.5-15.5) % Plt Count 197 (150-450) k/uL Plt Count Comment MPV 7.8 Immature Gran % (Auto) % Absolute Nucleated RBC (0.00-0.00) X 10*3/uL Neutrophils % 70 % Lymphocytes % 19 % Monocytes % 8 % Eosinophils % 1 % Basophils % 0 % Immature Gran # (0.00-0.04) X 10*3/uL Neutrophils # 5.5 (1.3-7.7) k/uL Lymphocytes # 1.5 (1.0-4.8) k/uL Monocytes # 0.7 (0-1.0) k/uL Eosinophils # 0.1 (0-0.7) k/uL Basophils # 0.0 (0-0.2) k/uL NRBC/100 WBC Diff (0.0-0.0) /100 WBCS Macrocytosis Slight Macrocytosis (manual) PT 13.1 H (9.0-12.0) sec INR 1.3 H (<1.2) APTT 27.0 (22.0-30.0) sec Sodium (137-145) mmol/L Potassium (3.5-5.1) mmol/L Chloride (98-107) mmol/L Carbon Dioxide (22-30) mmol/L Anion Gap mmol/L BUN (9-20) mg/dL Creatinine (0.66-1.25) mg/dL Est GFR (CKD-EPI)AfAm (>60 ml/min/1.73 sqM) Est GFR (CKD-EPI)NonAf (>60 ml/min/1.73 sqM) BUN/Creatinine Ratio (12.00-20.00) Ratio Glucose (74-99) mg/dL Plasma Lactic Acid Frank 1.3 (0.7-2.0) mmol/L Calcium (8.4-10.2) mg/dL Total Bilirubin (0.2-1.3) mg/dL AST (17-59) U/L ALT (4-49) U/L Alkaline Phosphatase (38-126) U/L Creatine Kinase (55-170) U/L C-Reactive Protein (<10.0) mg/L Total Protein (6.3-8.2) g/dL Albumin (3.5-5.0) g/dL Procalcitonin (0.02-0.09) ng/mL Urine Color Urine Appearance (Clear) Urine pH (5.0-8.0) Ur Specific [place] (1.001-1.035) Urine Protein (Negative) Urine Glucose (UA) (Negative) Urine Ketones (Negative) Urine Blood (Negative) Urine Nitrite (Negative) Urine Bilirubin (Negative) Urine Urobilinogen (<2.0) mg/dL Ur Leukocyte Esterase (Negative) Coronavirus (PCR) (Not Detectd) 06/20/20 06/20/20 06/21/20 Range/Units 11:28 13:15 04:30 WBC 7.15 (3.8-10.6) k/uL RBC 2.85 L (4.30-5.90) m/uL Hgb 9.4 L (13.0-17.5) gm/dL Hct 30.3 L (39.0-53.0) % MCV 106.3 H (80.0-100.0) fL MCH 33.0 H (25.0-35.0) pg MCHC 31.0 L (31.0-37.0) g/dL RDW 15.3 H (11.5-15.5) % Plt Count 197 (150-450) k/uL Plt Count Comment Adequate MPV 10.9 Immature Gran % (Auto) 0.3 % Absolute Nucleated RBC 0 (0.00-0.00) X 10*3/uL Neutrophils % 65.3 % Lymphocytes % 19.7 % Monocytes % 13.6 % Eosinophils % 1.0 % Basophils % 0.1 % Immature Gran # 0.02 (0.00-0.04) X 10*3/uL Neutrophils # 4.67 (1.3-7.7) k/uL Lymphocytes # 1.41 (1.0-4.8) k/uL Monocytes # 0.97 (0-1.0) k/uL Eosinophils # 0.07 (0-0.7) k/uL Basophils # 0.01 (0-0.2) k/uL NRBC/100 WBC Diff 0 (0.0-0.0) /100 WBCS Macrocytosis Macrocytosis (manual) 2+ PT (9.0-12.0) sec INR (<1.2) APTT (22.0-30.0) sec Sodium 137 (137-145) mmol/L Potassium 4.4 (3.5-5.1) mmol/L Chloride 97 L (98-107) mmol/L Carbon Dioxide 34 H (22-30) mmol/L Anion Gap 6 mmol/L BUN 25 H (9-20) mg/dL Creatinine 0.97 (0.66-1.25) mg/dL Est GFR (CKD-EPI)AfAm 89 (>60 ml/min/1.73 sqM) Est GFR (CKD-EPI)NonAf 77 (>60 ml/min/1.73 sqM) BUN/Creatinine Ratio (12.00-20.00) Ratio Glucose 110 H (74-99) mg/dL Plasma Lactic Acid Frank (0.7-2.0) mmol/L Calcium 9.0 (8.4-10.2) mg/dL Total Bilirubin 1.5 H (0.2-1.3) mg/dL AST 21 (17-59) U/L ALT 23 (4-49) U/L Alkaline Phosphatase 67 (38-126) U/L Creatine Kinase 34 L (55-170) U/L C-Reactive Protein (<10.0) mg/L Total Protein 6.5 (6.3-8.2) g/dL Albumin 3.7 (3.5-5.0) g/dL Procalcitonin (0.02-0.09) ng/mL Urine Color Urine Appearance (Clear) Urine pH (5.0-8.0) Ur Specific [place] (1.001-1.035) Urine Protein (Negative) Urine Glucose (UA) (Negative) Urine Ketones (Negative) Urine Blood (Negative) Urine Nitrite (Negative) Urine Bilirubin (Negative) Urine Urobilinogen (<2.0) mg/dL Ur Leukocyte Esterase (Negative) Coronavirus (PCR) Not Detected (Not Detectd) 06/21/20 06/21/20 06/21/20 Range/Units 04:30 15:50 18:07 WBC (3.8-10.6) k/uL RBC (4.30-5.90) m/uL Hgb (13.0-17.5) gm/dL Hct (39.0-53.0) % MCV (80.0-100.0) fL MCH (25.0-35.0) pg MCHC (31.0-37.0) g/dL RDW (11.5-15.5) % Plt Count (150-450) k/uL Plt Count Comment MPV Immature Gran % (Auto) % Absolute Nucleated RBC (0.00-0.00) X 10*3/uL Neutrophils % % Lymphocytes % % Monocytes % % Eosinophils % % Basophils % % Immature Gran # (0.00-0.04) X 10*3/uL Neutrophils # (1.3-7.7) k/uL Lymphocytes # (1.0-4.8) k/uL Monocytes # (0-1.0) k/uL Eosinophils # (0-0.7) k/uL Basophils # (0-0.2) k/uL NRBC/100 WBC Diff (0.0-0.0) /100 WBCS Macrocytosis Macrocytosis (manual) PT (9.0-12.0) sec INR (<1.2) APTT (22.0-30.0) sec Sodium 137 (137-145) mmol/L Potassium 5.9 H 5.1 (3.5-5.1) mmol/L Chloride 100 (98-107) mmol/L Carbon Dioxide 27.5 (22-30) mmol/L Anion Gap 9.50 mmol/L BUN 37.0 H (9-20) mg/dL Creatinine 1.8 H (0.66-1.25) mg/dL Est GFR (CKD-EPI)AfAm 42.0 L (>60 ml/min/1.73 sqM) Est GFR (CKD-EPI)NonAf 36.3 L (>60 ml/min/1.73 sqM) BUN/Creatinine Ratio 20.56 H (12.00-20.00) Ratio Glucose 99 (74-99) mg/dL Plasma Lactic Acid Frank (0.7-2.0) mmol/L Calcium 9.1 (8.4-10.2) mg/dL Total Bilirubin (0.2-1.3) mg/dL AST (17-59) U/L ALT (4-49) U/L Alkaline Phosphatase (38-126) U/L Creatine Kinase (55-170) U/L C-Reactive Protein (<10.0) mg/L Total Protein (6.3-8.2) g/dL Albumin (3.5-5.0) g/dL Procalcitonin (0.02-0.09) ng/mL Urine Color Yellow Urine Appearance Clear (Clear) Urine pH 5.5 (5.0-8.0) Ur Specific [place] 1.012 (1.001-1.035) Urine Protein Negative (Negative) Urine Glucose (UA) Negative (Negative) Urine Ketones Negative (Negative) Urine Blood Negative (Negative) Urine Nitrite Negative (Negative) Urine Bilirubin Negative (Negative) Urine Urobilinogen <2.0 (<2.0) mg/dL Ur Leukocyte Esterase Negative (Negative) Coronavirus (PCR) (Not Detectd) 06/21/20 06/21/20 Range/Units 18:07 18:07 WBC (3.8-10.6) k/uL RBC (4.30-5.90) m/uL Hgb (13.0-17.5) gm/dL Hct (39.0-53.0) % MCV (80.0-100.0) fL MCH (25.0-35.0) pg MCHC (31.0-37.0) g/dL RDW (11.5-15.5) % Plt Count (150-450) k/uL Plt Count Comment MPV Immature Gran % (Auto) % Absolute Nucleated RBC (0.00-0.00) X 10*3/uL Neutrophils % % Lymphocytes % % Monocytes % % Eosinophils % % Basophils % % Immature Gran # (0.00-0.04) X 10*3/uL Neutrophils # (1.3-7.7) k/uL Lymphocytes # (1.0-4.8) k/uL Monocytes # (0-1.0) k/uL Eosinophils # (0-0.7) k/uL Basophils # (0-0.2) k/uL NRBC/100 WBC Diff (0.0-0.0) /100 WBCS Macrocytosis Macrocytosis (manual) PT (9.0-12.0) sec INR (<1.2) APTT (22.0-30.0) sec Sodium (137-145) mmol/L Potassium (3.5-5.1) mmol/L Chloride (98-107) mmol/L Carbon Dioxide (22-30) mmol/L Anion Gap mmol/L BUN (9-20) mg/dL Creatinine (0.66-1.25) mg/dL Est GFR (CKD-EPI)AfAm (>60 ml/min/1.73 sqM) Est GFR (CKD-EPI)NonAf (>60 ml/min/1.73 sqM) BUN/Creatinine Ratio (12.00-20.00) Ratio Glucose (74-99) mg/dL Plasma Lactic Acid Frank (0.7-2.0) mmol/L Calcium (8.4-10.2) mg/dL Total Bilirubin (0.2-1.3) mg/dL AST (17-59) U/L ALT (4-49) U/L Alkaline Phosphatase (38-126) U/L Creatine Kinase (55-170) U/L C-Reactive Protein 79.5 H (<10.0) mg/L Total Protein (6.3-8.2) g/dL Albumin (3.5-5.0) g/dL Procalcitonin 0.10 H (0.02-0.09) ng/mL Urine Color Urine Appearance (Clear) Urine pH (5.0-8.0) Ur Specific [place] (1.001-1.035) Urine Protein (Negative) Urine Glucose (UA) (Negative) Urine Ketones (Negative) Urine Blood (Negative) Urine Nitrite (Negative) Urine Bilirubin (Negative) Urine Urobilinogen (<2.0) mg/dL Ur Leukocyte Esterase (Negative) Coronavirus (PCR) (Not Detectd) Disposition Decision to Admit Reason: Admit from EC Decision Date: 06/20/20 Decision Time: 12:47 <Toyin Schultz - Last Filed: 06/20/20 12:47> <Danika Smalls - Last Filed: 06/22/20 23:16> Clinical Impression: Hematoma of right lower leg, Intractable pain Disposition: ADMITTED IP TO THIS [facility] Condition: Serious
[2020-06-20 11:39] LABS: Basophils % (A) 0 %; Eosinophils # (A) 0.1 k/uL (0-0.7); Eosinophils % (A) 1 %; HCT 33.4 % (39.0-53.0); Lymphocytes # (A) 1.5 k/uL (1.0-4.8); Lymphocytes % (A) 19 %; MCH 32.3 pg (25.0-35.0); MCHC 31.4 g/dL (31.0-37.0); MCV 102.8 fL (80.0-100.0); Macrocytosis Slight; Mean Platelet Volume 7.8; Monocytes # (A) 0.7 k/uL (0-1.0); Monocytes % (A) 8 %; Neutrophils # (A) 5.5 k/uL (1.3-7.7); Neutrophils % (A) 70 %; Platelet Count 197 k/uL (150-450); RBC 3.25 m/uL (4.30-5.90); RDW 14.9 % (11.5-15.5); WBC 7.8 k/uL (3.8-10.6)
[2020-06-20 11:46] LABS: HGB 10.5 gm/dL (13.0-17.5)
[2020-06-20 11:50] LABS: INR 1.3 (<1.2); Prothrombin Time 13.1 sec (9.0-12.0)
[2020-06-20 11:59] LABS: Albumin 3.7 g/dL (3.5-5.0); Potassium 4.4 mmol/L (3.5-5.1); Total Bilirubin 1.5 mg/dL (0.2-1.3); Total Protein 6.5 g/dL (6.3-8.2)
[2020-06-20] MEDS ORDERED: fentaNYL (PF) 50 MCG/ML 2 ML AMP IV STA (12:44)
[2020-06-20] MEDS ORDERED: NALOXONE 0.4 MG/ML 1 ML VIAL IV PRN (12:45)
[2020-06-20] MEDS ORDERED: ONDANSETRON 4 MG/2 ML VIAL IVP PRN (12:45)
[2020-06-20] MEDS: MORPHINE SULFATE 4 MG/ML SYRINGE IV PRN ×2 (15:11→23:13)
--- NOTE | 2020-06-20 16:47 | P.CNOR ---
<Rock Salguero - Last Filed: 06/20/20 16:41> History of Present Illness - [facility] Consult date: 06/20/20 Requesting physician: Toyin Schultz Consult reason: other (Right lower extremity hematoma status post fall) History of present illness: Patient is a very pleasant 75-year-old male who is seen and examined at bedside for further evaluation of his right lower extremity. He sustained a fall approximate 4 days ago falling on to his left knee. He was into the emergency department for further evaluation. He had a laceration at that time. Wound was closed with glue and Steri-Strips. Secondary to the patient's thin skin decision was made not to repair with sutures. Patient states he was discharged from the emergency department. Since that time his right lower extremity symptoms have been worsening. He has significant pain and swelling from the knee down to the foot. He has significant bruising with hematoma around the right escobar and calf and extending up to the posterior thigh. He has a blister over the escobar as well. The Steri-Strips remain intact over the wound. He is able to perform some dorsiflexion and plantar flexion right lower extremity but it is limited as compared to his left lower extremity. He presented back to the emergency department given his worsening symptoms and inability to ambulate. He denies any other injury since his previous fall. He does admit to a mechanical valve and is on Coumadin. He states he significantly bruises easily and frequent. He chronically has bruising in the bilateral upper extremities. Patient's past medical history includes atrial fibrillation, coronary artery disease, COPD, diabetes mellitus, hyperlipidemia, hypertension tension, prostate disorder, sleep apnea, and vascular disorder. Patient states at bedside he did just eat. Patient continues to be seen and examined by medicine. Past Medical History Past Medical History: Atrial Fibrillation, Asthma, Coronary Artery Disease (CAD), Cancer, COPD, Diabetes Mellitus, GERD/Reflux, Hearing Disorder / Deafness, Hyperlipidemia, Hypertension, Osteoarthritis (OA), Pneumonia, Prostate Disorder, Sleep Apnea/CPAP/BIPAP, Vascular Disorder Additional Past Medical History / Comment(s): Prostate cancer. see Dr Nguyễn H&P FOR CARDIAC HISTORY , O2 2L PRN AND AT BEDTIME , hiatal hernia, kidney stones, "bad back", past a fib cardiomyopathy aortic stenosis, PRE- DIABETIC -DIET CONTROLLED, aortic valve replacment 09/03 History of Any Multi-Drug Resistant Organisms: None Reported Past Surgical History: Ablation, Bladder Surgery, Cholecystectomy, Heart Catheterization With Stent, Hernia Repair, Tonsillectomy Additional Past Surgical History / Comment(s): CARDIOVERSION, MUKESH FEMORAL BYPASS SURGERY, MUKESH.inguinal hernia, UMBILICAL HERNIA REPAIR, surgery for PILONIDAL CYST, mukesh CATARACTS, ARCH/AORTOGRAM, cystoscopy for KIDNEY STONE REMOVAL x 3, LT CAROTID ENDARTECTOMY. BRAYDEN 05/10/17, 06/06, 06/04/19, 2 stents to the RCA Past Anesthesia/Blood Transfusion Reactions: No Reported Reaction Date of Last Stent Placement:: 06/06/18 Past Psychological History: No Psychological Hx Reported Smoking Status: Former smoker Past Alcohol Use History: Heavy, Occasional Past Drug Use History: None Reported - Past Family History Father Family Medical History: Liver Disease Mother Family Medical History: No Reported History Additional Family Medical History / Comment(s): . Medications and Allergies Home Medications Medication Instructions Recorded Confirmed Type Montelukast [Singulair] 10 mg PO HS 09/09/13 06/20/20 History Tamsulosin [Flomax] 0.4 mg PO HS 09/09/13 06/20/20 History Spironolactone 25 mg PO HS 04/03/14 06/20/20 History Budesonide-Formot 160-4.5 Mcg 2 puff INHALATION RT-BID 08/07/16 06/20/20 History [Symbicort 160-4.5 Mcg Inhaler] Fluticasone Nasal [place] [Flonase 2 spr EA NOSTRIL DAILY 08/07/16 06/20/20 History Nasal [place]] Loratadine [Claritin] 10 mg PO DAILY 08/07/16 06/20/20 History Tiotropium 18 Mcg/Puff [Spiriva] 1 cap INHALATION RT-HS 08/07/16 06/20/20 History Solifenacin Succinate [Vesicare] 5 mg PO DAILY 05/02/17 06/20/20 History Aspirin EC [Ecotrin Low Dose] 81 mg PO DAILY 09/12/17 06/20/20 History Docusate [Colace] 200 mg PO DAILY 05/30/19 06/20/20 History Esomeprazole Magnesium [NexIUM] 40 mg PO DAILY 10/03/19 06/20/20 History Ferrous Sulfate [Iron (65 MG 325 mg PO DAILY 10/03/19 06/20/20 History Elemental)] Magnesium 250 mg PO BID 10/03/19 06/20/20 History Potassium Chloride 10 meq PO BID 10/03/19 06/20/20 History cycloSPORINE [Restasis] 1 drop BOTH EYES BID 01/15/20 06/20/20 History Nitroglycerin Sl Tabs [Nitrostat] 0.4 mg SL Q5M PRN 04/16/20 06/20/20 History allopurinoL [Zyloprim] 300 mg PO DAILY 04/16/20 06/20/20 History Ascorbic Acid [Vitamin C] 1,000 mg PO DAILY 06/02/20 06/20/20 History Cholecalciferol [Vitamin D3 (25 75 mcg PO DAILY 06/02/20 06/20/20 History Mcg = 1000 Iu)] Cyanocobalamin (Vitamin B-12) 2,500 mcg PO HS 06/02/20 06/20/20 History [Vitamin B-12] Cyclobenzaprine [Flexeril] 5 mg PO HS 06/02/20 06/20/20 History Docusate [Colace] 100 mg PO HS 06/02/20 06/20/20 History Atorvastatin [Lipitor] 40 mg PO HS tab 06/08/20 06/20/20 Rx Furosemide [Lasix] 40 mg PO HS tab 06/08/20 06/20/20 Rx Metoprolol Succinate (ER) [Toprol 150 mg PO DAILY 90 Days #90 tab 06/08/20 06/20/20 Rx XL] Furosemide [Lasix] 80 mg PO DAILY #30 tab 06/09/20 06/20/20 Rx Warfarin [Coumadin] 2.5 mg PO DAILY #30 tab 06/09/20 06/20/20 Rx lisinopriL [Zestril] 2.5 mg PO DAILY #30 tab 06/09/20 06/20/20 Rx Allergies Allergy/AdvReac Type Severity Reaction Status Date / Time Itnwukt-[id number]-Geb Reductase Allergy Mild Rash/Hives Verified 06/20/20 13:31 Inhibitor Physical Examination Physical Exam: Patient is awake, alert, and oriented 3 Vital signs stable Good chest excursion with deep inspiration and expiration Examination of the right lower extremity shows large hematoma at the right knee extending all the way to the ankle anteriorly and laterally and over the calf Hematoma also extends up the right posterior distal thigh Evidence of multiple blisters at the right anterior lateral superior portion of the lower extremity below the knee Steri-Strips remain intact over the wound site at the anterior right knee Wound site at the right knee is currently dry with some scab formation without active drainage Significant pain with palpation over the right knee and calf 2+ pitting edema over the right lower extremity and right foot Patient is able to perform some dorsiflexion and plantarflexion of the right lower extremity Patient is able to wiggle toes of the right lower extremity Neurovascularly intact right lower extremity Significant bruising over the bilateral upper extremities Current dressing intact over the right upper forearm which is clean and dry Results Pertinent studies: X-rays of the right knee taken on 06/16/2020: No evidence of fracture or subluxation of the right knee; report states high-grade stenosis of the right SFA is suspected based on calcium load on the vessel - Labs Labs: Abnormal Lab Results - Last 24 Hours (Table) 06/20/20 06/20/20 06/20/20 Range/Units 11:28 11:28 11:28 RBC 3.25 L (4.30-5.90) m/uL Hgb 10.5 L D (13.0-17.5) gm/dL Hct 33.4 L (39.0-53.0) % MCV 102.8 H (80.0-100.0) fL PT 13.1 H (9.0-12.0) sec INR 1.3 H (<1.2) Chloride 97 L (98-107) mmol/L Carbon Dioxide 34 H (22-30) mmol/L BUN 25 H (9-20) mg/dL Glucose 110 H (74-99) mg/dL Total Bilirubin 1.5 H (0.2-1.3) mg/dL Creatine Kinase 34 L (55-170) U/L H & H 06/20/20 Range/Units 11:28 Hgb 10.5 L D (13.0-17.5) gm/dL Hct 33.4 L (39.0-53.0) % Coagulation 06/20/20 Range/Units 11: INR 1.3 H (<1.2) Result Diagrams: 06/20/20 11:28 06/20/20 11:28 Assessment and Plan Assessment: Assessment: Large right lower extremity hematoma Right lower extremity swelling Right lower extremity pain Inability ambulate due to right lower extremity pain History of fall Current Coumadin use History of mechanical valve Diabetes mellitus Hyperlipidemia Hypertension Atrial fibrillation Coronary artery disease COPD Prostate disorder Sleep apnea Vascular disorder (1) Status post fall Current Visit: Yes Status: Acute Code(s): Z91.81 - HISTORY OF FALLING SNOMED Code(s): 564201088 (2) Pain of right lower extremity Current Visit: Yes Status: Acute Code(s): M79.604 - PAIN IN RIGHT LEG SNOMED Code(s): 954276536 (3) Warfarin anticoagulation Current Visit: Yes Status: Acute Code(s): Z79.01 - SHELTER (CURRENT) USE OF ANTICOAGULANTS SNOMED Code(s): 66556142 (4) Swelling of right lower extremity Current Visit: Yes Status: Acute Code(s): M79.89 - OTHER SPECIFIED SOFT TISSUE DISORDERS SNOMED Code(s): 195533226 (5) Diabetes mellitus Current Visit: Yes Status: Acute Code(s): E11.9 - TYPE 2 DIABETES MELLITUS WITHOUT COMPLICATIONS SNOMED Code(s): 75592998 (6) Hyperlipidemia Current Visit: Yes Status: Acute Code(s): E78.5 - HYPERLIPIDEMIA, UNSPECIFIED SNOMED Code(s): 35072748 (7) Hypertension Current Visit: Yes Status: Acute Code(s): I10 - ESSENTIAL (PRIMARY) HYPERTENSION SNOMED Code(s): 34776588 (8) Prostate disorder Current Visit: Yes Status: Acute Code(s): N42.9 - DISORDER OF PROSTATE, UNSPECIFIED SNOMED Code(s): 45913754 (9) Sleep apnea Current Visit: Yes Status: Acute Code(s): G47.30 - SLEEP APNEA, UNSPECIFIED SNOMED Code(s): 90267698 (10) Vascular disorder Current Visit: Yes Status: Acute Code(s): I99.9 - UNSPECIFIED DISORDER OF CIRCULATORY SYSTEM SNOMED Code(s): 02214861 (11) Hematoma of right lower leg Current Visit: Yes Status: Acute Code(s): S80.11XA - CONTUSION OF RIGHT LOWER LEG, INITIAL ENCOUNTER SNOMED Code(s): 32297450822258283 (12) Atrial fibrillation Current Visit: No Status: Acute Code(s): I48.91 - UNSPECIFIED ATRIAL FIBRILLATION SNOMED Code(s): 75833962 (13) CAD (coronary artery disease) Current Visit: No Status: Acute Code(s): I25.10 - ATHSCL HEART DISEASE OF [place] CORONARY ARTERY W/O ANG PCTRS SNOMED Code(s): 13882972 (14) COPD (chronic obstructive pulmonary disease) Current Visit: No Status: Acute Code(s): J44.9 - CHRONIC OBSTRUCTIVE PULMONARY DISEASE, UNSPECIFIED SNOMED Code(s): 91146805 Plan: Plan: 1. Patient has been discussed in detail with Dr. Jefry Mulligan. Patient does have significant swelling with a large hematoma over the right lower extremity below the knee and at the posterior calf and distal thigh. He has edema of the right lower extremity as well. He does bruise easily given his Coumadin use. He has a blister on the anterior lateral superior portion of his right escobar. He has difficulty with active range of motion including dorsiflexion and plantar flexion but he is able to perform some movement with dorsiflexion and plantarflexion. He is able to wiggle his toes. He is neurovascularly intact for the right lower extremity. He does have increased pain with palpation over the right lower extremity from the knee extending to the ankle. Reviewing of x- ray imaging taken on 06/16/2020 does not show any evidence of fracture dislocation of his right knee. Patient recently are food within the last hour or so. We are not currently planned for immediate surgical intervention. Patient will be evaluated the bedside by Dr. Jefry Mulligan and he will determine a plan of care proceeding forward in regards to surgical intervention versus conservative treatment based on his physical examination and assessment at the bedside. 2. Patient will continue be seen and examined by medicine for his other medical diagnoses. Time with Patient: Greater than 30 (Including obtaining history, physical examination, reviewing of imaging, and dictation.) <Roldan Mulligan - Last Filed: 06/20/20 18:11> Physical Examination Osteopathic Statement: *. No significant issues noted on an osteopathic structural exam other than those noted in the History and Physical/Consult. Results - Labs Labs: Abnormal Lab Results - Last 24 Hours (Table) 06/20/20 06/20/20 06/20/20 Range/Units 11:28 11:28 11:28 RBC 3.25 L (4.30-5.90) m/uL Hgb 10.5 L D (13.0-17.5) gm/dL Hct 33.4 L (39.0-53.0) % MCV 102.8 H (80.0-100.0) fL PT 13.1 H (9.0-12.0) sec INR 1.3 H (<1.2) Chloride 97 L (98-107) mmol/L Carbon Dioxide 34 H (22-30) mmol/L BUN 25 H (9-20) mg/dL Glucose 110 H (74-99) mg/dL Total Bilirubin 1.5 H (0.2-1.3) mg/dL Creatine Kinase 34 L (55-170) U/L H & H 06/20/20 Range/Units 11:28 Hgb 10.5 L D (13.0-17.5) gm/dL Hct 33.4 L (39.0-53.0) % Coagulation 06/20/20 Range/Units 11:28 INR 1.3 H (<1.2) Result Diagrams: 06/20/20 11:28 06/20/20 11:28 Assessment and Plan Plan: The patient is seen and examined at bedside. I agree with the above dictation. He has swelling bilaterally but certainly there is hematoma and significant ecchymosis on the right lower extremity since his fall. The wound appears to be healing appropriately at his knee. Most of the hematoma appears to be somewhat superficial. His compartments are still soft. He is able to dorsiflex and plantarflex his ankle and toes though somewhat admitted. He still is able to flex his knee on his own though it is also somewhat limited. He does not appear to have clinical compartment syndrome. I think he has significant hematoma given his diffuse bruising and chronic edema in his bilateral lower extremities. There is some superficial and subcutaneous hematoma but I do not believe that involves significant portions of the muscle. I do not think that his muscle is in jeopardy at this point or his neurologic status for his lower leg. I think he should continue with conservative treatment he may have some benefit with warm compresses. I do not plan for surgical intervention at this point. We'll follow them closely.
[2020-06-20] MEDS: METOPROLOL SUCCINATE (ER) 50 MG TAB.ER.24H PO SCH (17:58)
[2020-06-20] MEDS: ASPIRIN 81 MG PO SCH (17:58)
[2020-06-20] MEDS: PANTOPRAZOLE 40 MG TABLET PO SCH (17:58)
--- NOTE | 2020-06-20 20:24 | US ---
EXAMINATION TYPE: US venous doppler duplex LE RT DATE OF EXAM: 06/20/2020 7:40 PM COMPARISON: US CLINICAL HISTORY: swelling, trauma, hematoma, rule out DVT. Swelling, trauma, hematoma. R/O DVT. No hx of DVT. Patient on coumadin. SIDE PERFORMED: Right TECHNIQUE: The lower extremity deep venous system is examined utilizing real time linear array sonog jimmy with graded compression, doppler sonography and color-flow sonography. VESSELS IMAGED: Common Femoral Vein Deep Femoral Vein Greater Saphenous Vein * Femoral Vein Popliteal Vein Small Saphenous Vein * Proximal Calf Veins (* superficial vessels) Right Leg: No evidence of DVT in veins imaged at this time from prox calf veins to CFV/GSV. Limited due to edema. IMPRESSION: No sign of deep vein thrombosis in the right leg.
[2020-06-20] MEDS ORDERED: FUROSEMIDE 40 MG TAB PO SCH (21:00)
[2020-06-20] MEDS ORDERED: SPIRONOLACTONE 25 MG TAB PO SCH (21:00)
[2020-06-20] MEDS: SYMBICORT 160-4.5 MCG INHALER INHALATION SCH (21:31)
[2020-06-20] MEDS: IPRATROPIUM 0.5 MG/2.5 ML NEBU INHALATION SCH (21:32)
[2020-06-20] MEDS: cycloSPORINE 0.05% OPHTH 0.4 ML DROPERETTE BOTH EYES SCH (23:11)
[2020-06-20] MEDS: FLUTICASONE 50MCG/SPRAY NASAL 16GM EA NOSTRIL SCH (23:12)
[2020-06-20] MEDS: CYANOCOBALAMIN 500 MCG TAB PO SCH (23:12)
[2020-06-20] MEDS: DOCUSATE 100 MG CAP PO SCH (23:12)
[2020-06-20] MEDS: POTASSIUM CHLORIDE ER 10 MEQ TAB.ER.PRT PO SCH (23:12)
[2020-06-20] MEDS: MONTELUKAST 10 MG TAB PO SCH (23:13)
[2020-06-20] MEDS: TAMSULOSIN 0.4 MG CAP.ER.24H PO SCH (23:13)
[2020-06-20] MEDS: MAGNESIUM OXIDE 400 MG TAB PO SCH (23:13)
[2020-06-20] MEDS: ATORVASTATIN 40 MG TAB PO SCH (23:13)
--- NOTE | 2020-06-20 23:43 | P.HPIM ---
History of Present Illness H&P Date: 06/20/20 Chief Complaint: Right knee pain and leg pain and swelling. Patient is a 75-year-old male with a known history of atrial fibrillation and valvular heart disease, hypertension, diabetes type 2, osteoarthritis, cardiomyopathy, peripheral vascular disease with bifemoral bypass surgery, residual smoking and heavy alcohol use and obstructive sleep apnea on BiPAP at home and other multiple medical problems with history of aortic valve replacement presents to ER due to worsening right lower extremity pain and knee pain. Patient states that he fell about 4 days ago and injuring his right knee and also laceration on the right forearm. Patient developed bruising over the right lower extremities. Patient states that he was intoxicated and lost his balance. Patient presents to ER due to pain. Patient is unable to bend his right lower extremity and flex his right knee. No numbness or tingling sensation. Denies any fever or chills. No cough or sputum production. No chest pain or shortness breath. No palpitations. No dysuria or hematuria. Laboratory data showed WBC 7.8, hemoglobin 10.5 and MCV 102.8 INR 1.3 Sodium 137 potassium 4.4 chloride 97 bicarb 34 BUN 25 and creatinine 0.97 Bilirubin level is 1.5 and CK 34 and coronavirus PCR not detected Venous duplex of the right lower extremity showed no signs of DVT in the right leg. Review of Systems Constitutional: Patient denies any fever or chills . No generalized weakness or weight loss. Abdomen: Patient denied nausea vomiting and diarrhea and abdominal pain. Cardiovascular: Patient denies any chest pain or short of breath no palpitations. Respiratory: patient denied any cough or sputum production. No shortness of breath Neurologic: Patient denied any numbness or tingling headache. Musculoskeletal: Right knee pain and leg pain and swelling. Skin: Negative Psychiatric: Negative Endocrine: No heat or cold intolerance. No recent weight gain. Genitourinary: No dysuria or hematuria. All other 14 point ROS negative except the above Past Medical History Past Medical History: Atrial Fibrillation, Asthma, Coronary Artery Disease (C AD), Cancer, COPD, Diabetes Mellitus, GERD/Reflux, Hearing Disorder / Deafness, Hyperlipidemia, Hypertension, Osteoarthritis (OA), Pneumonia, Prostate Disorder, Sleep Apnea/CPAP/BIPAP, Vascular Disorder Additional Past Medical History / Comment(s): Prostate cancer. see Dr Howard wu H&P FOR CARDIAC HISTORY , O2 2L PRN AND AT BEDTIME , hiatal hernia, kidney stones, "bad back", past a fib cardiomyopathy aortic stenosis, PRE- DIABETIC -DIET CONTROLLED, aortic valve replacment 09/03 History of Any Multi-Drug Resistant Organisms: None Reported Past Surgical History: Ablation, Bladder Surgery, Cholecystectomy, Heart Cathet erization With Stent, Hernia Repair, Tonsillectomy Additional Past Surgical History / Comment(s): CARDIOVERSION, MUKESH FEMORAL BYPASS SURGERY, MUKESH.inguinal hernia, UMBILICAL HERNIA REPAIR, surgery for PILONIDAL CYST, mukesh CATARACTS, ARCH/AORTOGRAM, cystoscopy for KIDNEY STONE REMOVAL x 3, LT CAROTID ENDARTECTOMY. BRAYDEN 05/10/17, 06/06, 06/04/19, 2 stents to the RCA Past Anesthesia/Blood Transfusion Reactions: No Reported Reaction Date of Last Stent Placement:: 06/06/18 Past Psychological History: No Psychological Hx Reported Smoking Status: Former smoker Past Alcohol Use History: Heavy, Occasional Past Drug Use History: None Reported - Past Family History Father Family Medical History: Liver Disease Mother Family Medical History: No Reported History Additional Family Medical History / Comment(s): . Medications and Allergies Home Medications Medication Instructions Recorded Confirmed Type Montelukast [Singulair] 10 mg PO HS 09/09/13 06/20/20 History Tamsulosin [Flomax] 0.4 mg PO HS 09/09/13 06/20/20 History Spironolactone 25 mg PO HS 04/03/14 06/20/20 History Budesonide-Formot 160-4.5 Mcg 2 puff INHALATION RT-BID 08/07/16 06/20/20 History [Symbicort 160-4.5 Mcg Inhaler] Fluticasone Nasal [place] [Flonase 2 spr EA NOSTRIL DAILY 08/07/16 06/20/20 History Nasal [place]] Loratadine [Claritin] 10 mg PO DAILY 08/07/16 06/20/20 History Tiotropium 18 Mcg/Puff [Spiriva] 1 cap INHALATION RT-HS 08/07/16 06/20/20 History Solifenacin Succinate [Vesicare] 5 mg PO DAILY 05/02/17 06/20/20 History Aspirin EC [Ecotrin Low Dose] 81 mg PO DAILY 09/12/17 06/20/20 History Docusate [Colace] 200 mg PO DAILY 05/30/19 06/20/20 History Esomeprazole Magnesium [NexIUM] 40 mg PO DAILY 10/03/19 06/20/20 History Ferrous Sulfate [Iron (65 MG 325 mg PO DAILY 10/03/19 06/20/20 History Elemental)] Magnesium 250 mg PO BID 10/03/19 06/20/20 History Potassium Chloride 10 meq PO BID 10/03/19 06/20/20 History cycloSPORINE [Restasis] 1 drop BOTH EYES BID 01/15/20 06/20/20 History Nitroglycerin Sl Tabs [Nitrostat] 0.4 mg SL Q5M PRN 04/16/20 06/20/20 History allopurinoL [Zyloprim] 300 mg PO DAILY 04/16/20 06/20/20 History Ascorbic Acid [Vitamin C] 1,000 mg PO DAILY 06/02/20 06/20/20 History Cholecalciferol [Vitamin D3 (25 75 mcg PO DAILY 06/02/20 06/20/20 History Mcg = 1000 Iu)] Cyanocobalamin (Vitamin B-12) 2,500 mcg PO HS 06/02/20 06/20/20 History [Vitamin B-12] Cyclobenzaprine [Flexeril] 5 mg PO HS 06/02/20 06/20/20 History Docusate [Colace] 100 mg PO HS 06/02/20 06/20/20 History Atorvastatin [Lipitor] 40 mg PO HS tab 06/08/20 06/20/20 Rx Furosemide [Lasix] 40 mg PO HS tab 06/08/20 06/20/20 Rx Metoprolol Succinate (ER) [Toprol 150 mg PO DAILY 90 Days #90 tab 06/08/20 06/20/20 Rx XL] Furosemide [Lasix] 80 mg PO DAILY #30 tab 06/09/20 06/20/20 Rx Warfarin [Coumadin] 2.5 mg PO DAILY #30 tab 06/09/20 06/20/20 Rx lisinopriL [Zestril] 2.5 mg PO DAILY #30 tab 06/09/20 06/20/20 Rx Allergies Allergy/AdvReac Type Severity Reaction Status Date / Time Mxnxale-Ezk-Qzf Reductase Allergy Mild Rash/Hives Verified 06/20/20 13:31 Inhibitor Physical Exam Vitals: Vital Signs Temp Pulse Resp BP Pulse Ox 06/20/20 13:08 108 H 18 90/74 92 L 06/20/20 11:31 110 H 18 102/64 92 L 06/20/20 11:06 97.9 F 111 H 18 104/64 95 Intake and Output 06/19/20 06/20/20 06/20/20 21:59 06:59 14:59 Other: Weight 115.212 kg PHYSICAL EXAMINATION: Patient is lying in the bed comfortably, no acute distress, awake alert and oriented.. HEENT: Normocephalic. Neck is supple. Pupils reactive. Nostrils clear. Oral cavity is moist. Ears reveal no drainage. Neck reveals no JVD, carotid bruits, or thyromegaly. CHEST EXAMINATION: Trachea is central. Symmetrical expansion. Lung robles clear to auscultation and percussion. CARDIAC: Normal S1, S2 with no gallops. No murmurs ABDOMEN: Soft. Bowel sounds normal. No organomegaly. No abdominal bruits. Extremities:.Patient does have right lower extremity and upper extremity severe bruising and hematoma over the right calf region. Laceration on the upper extremity and below the knee area. No active bleeding noted. No fluid collection noted. Right lower extremity swelling more than left. Neurologically awake, alert, oriented x3 with well-coordinated movements. No focal deficits noted Skin: No rash or skin lesions. Psychiatric: Coperative. Nonsuicidal Musculoskeletal: No joint swelling or deformity. Normal range of motion. Results CBC & Chem 7: 06/20/20 11:28 06/20/20 11:28 Labs: Abnormal Lab Results - Last 24 Hours (Table) 06/20/20 06/20/20 06/20/20 Range/Units 11:28 11:28 11:28 RBC 3.25 L (4.30-5.90) m/uL Hgb 10.5 L D (13.0-17.5) gm/dL Hct 33.4 L (39.0-53.0) % MCV 102.8 H (80.0-100.0) fL PT 13.1 H (9.0-12.0) sec INR 1.3 H (<1.2) Chloride 97 L (98-107) mmol/L Carbon Dioxide 34 H (22-30) mmol/L BUN 25 H (9-20) mg/dL Glucose 110 H (74-99) mg/dL Total Bilirubin 1.5 H (0.2-1.3) mg/dL Creatine Kinase 34 L (55-170) U/L Thrombosis Risk Factor Assmnt - DVT/VTE Prophylaxis DVT/VTE Prophylaxis: Pharmacologic Prophylaxis ordered Assessment and Plan Assessment: Right knee pain status post fall and laceration. Right lower extremity hematoma and swelling. Right arm bruising and laceration. Paroxysmal atrial fibrillation on anticoagulation with Coumadin History of aortic valve replacement COPD not in exacerbation Diabetes type 2 GERD Hearing disorder/deafness Hypertension Hyperlipidemia Obstructive sleep apnea on CPAP Peripheral vascular disease history of bilateral femoral bypass surgery Prior history of smoking and Heavy alcohol use DVT prophylaxis. Plan: Patient was admitted to hospital status post fall and right lower extremity hematoma and swelling and right knee pain. Patient is on Coumadin at home INR is subtherapeutic at 1.3. We will continue to hold Coumadin at this time. X- rays taken on 06/16/2020 showed no evidence of fracture or dislocation of his right knee. We will start back on Coumadin once the leg swelling is getting better. Orthopedic surgery was consulted and no immediate surgical intervention is being planned at this time. Continued home medications and follow-up closely. Insulin sliding scale and pain management. Further recommendations based on clinical course. Prognosis guarded. Monitor for withdrawal symptoms. Time with Patient: Greater than 30
[2020-06-21] MEDS: HEPARIN SODIUM,PORCINE 5,000 UNIT/ML 1 ML VIAL SQ SCH ×3 (02:41→16:41)
[2020-06-21] MEDS: SYMBICORT 160-4.5 MCG INHALER INHALATION SCH ×2 (07:59→20:41)
[2020-06-21] MEDS: IPRATROPIUM 0.5 MG/2.5 ML NEBU INHALATION SCH ×4 (07:59→20:41)
[2020-06-21] MEDS ORDERED: FUROSEMIDE 80 MG TAB PO SCH (09:00)
[2020-06-21] MEDS: PANTOPRAZOLE 40 MG TABLET PO SCH (09:06)
[2020-06-21] MEDS: ASCORBIC ACID 500 MG TAB PO SCH (09:06)
[2020-06-21] MEDS: LORATADINE 10 MG TAB PO SCH (09:06)
[2020-06-21] MEDS: POTASSIUM CHLORIDE ER 10 MEQ TAB.ER.PRT PO SCH (09:06)
[2020-06-21] MEDS: FERROUS SULFATE 325 MG TAB PO SCH (09:06)
[2020-06-21] MEDS: THIAMINE 100 MG TAB PO SCH (09:06)
[2020-06-21] MEDS: DOCUSATE 100 MG CAP PO SCH ×2 (09:06→21:27)
[2020-06-21] MEDS: ASPIRIN 81 MG PO SCH (09:06)
[2020-06-21] MEDS: allopurinoL 300 MG TAB PO SCH (09:07)
[2020-06-21] MEDS: METOPROLOL SUCCINATE (ER) 50 MG TAB.ER.24H PO SCH (09:07)
[2020-06-21] MEDS: MAGNESIUM OXIDE 400 MG TAB PO SCH ×2 (09:07→21:27)
[2020-06-21] MEDS: CHOLECALCIFEROL 25 MCG (1000 IU) TABLET PO SCH (09:07)
[2020-06-21] MEDS: cycloSPORINE 0.05% OPHTH 0.4 ML DROPERETTE BOTH EYES SCH ×2 (09:08→22:56)
[2020-06-21] MEDS: MORPHINE SULFATE 4 MG/ML SYRINGE IV PRN (09:09)
[2020-06-21] MEDS: TROSPIUM CHLORIDE 20 MG TABLET PO SCH (09:09)
[2020-06-21 09:47] LABS: HCT 30.3 % (39.6-50.0); HGB 9.4 g/dL (13.0-17.0); MCV 106.3 fL (80.0-97.0); Mean Platelet Volume 10.9 fL (9.5-12.2); Platelet Count 197 X 10*3/uL (140-440); RBC 2.85 X 10*6/uL (4.40-5.60); RDW 15.3 % (11.5-14.5); WBC 7.15 X 10*3/uL (4.50-10.00)
[2020-06-21 10:50] LABS: Anion Gap 9.5 mmol/L (4.00-12.00); BUN/Creat Ratio 20.56 Ratio (12.00-20.00); Calcium 9.1 mg/dL (8.7-10.3); Carbon Dioxide 27.5 mmol/L (21.6-31.8); Non-African American GFR(CKD) 36.3 (60.0-200.0); Potassium 5.9 mmol/L (3.5-5.5)
[2020-06-21 10:59] LABS: Basophils # (A) 0.01 X 10*3/uL (0.00-0.10); Basophils % (A) 0.1 %; Eosinophils # (A) 0.07 X 10*3/uL (0.04-0.35); Lymphocytes # (A) 1.41 X 10*3/uL (0.90-5.00); Lymphocytes % (A) 19.7 %; Macrocytosis (M) 2+; Monocytes # (A) 0.97 X 10*3/uL (0.20-1.00); Monocytes % (A) 13.6 %; Neutrophils # (A) 4.67 X 10*3/uL (1.80-7.70); Neutrophils % (A) 65.3 %
--- NOTE | 2020-06-21 12:15 | P.PN ---
Progress Note - Text Progress Note Date: 06/21/20 Orthopedics: History of present illness: Patient is a very pleasant 75-year-old male who is seen and examined at bedside for follow-up evaluation of his right lower extremity. He sustained a fall approximately 5 days ago falling on to his left knee. He was into the emergency department for further evaluation. He had a laceration at that time. Wound was closed with glue and Steri-Strips. Secondary to the patient's thin skin decision was made not to repair with sutures. Patient states he was discharged from the emergency department. His right lower extremity pain and swelling have been worsening and he presented back to the emergency department and was admitted. Since being seen and examined at the bedside yesterday, he has not had any significant change in his symptoms. They have not improved or worsened. He has significant pain and swelling from the knee down to the foot. He has significant Bernardino with hematoma around the right escobar and calf and extending up to the posterior thigh. He has a blister over the escobar as well and has remained closed. The Steri-Strips remain intact over the wound out active drainage. He is able to perform some dorsiflexion and plantar flexion right lower extremity but it is limited as compared to his left lower extremity. He presented back to the emergency department given his worsening symptoms and inability to ambulate. He has swelling in the left lower extremity as well but to a lesser degree. He denies any other injury since his previous fall. He does admit to a mechanical valve and is on Coumadin. He states he significantly bruises easily and frequent. He chronically has bruising in the bilateral upper extremities. Patient's past medical history includes atrial fibrillation, coronary artery disease, COPD, diabetes mellitus, hyperlipidemia, hypertension tension, prostate disorder, sleep apnea, and vascular disorder. Patient states at bedside he did just eat. Patient continues to be seen and examined by medicine. Physical Exam: Patient is awake, alert, and oriented 3 Vital signs stable Good chest excursion with deep inspiration and expiration Examination of the right lower extremity shows large hematoma with ecchymosis at the right knee extending all the way to the ankle anteriorly and laterally and over the calf Hematoma and ecchymosis also extends up the right posterior distal thigh Evidence of multiple blisters at the right anterior lateral superior portion of the lower extremity below the knee Steri-Strips remain intact over the wound site at the anterior right knee Wound site at the right knee is currently dry with some scab formation without active drainage Significant pain with palpation over the right knee and calf 2+ pitting edema over the right lower extremity and right foot 1+ pitting edema over the left lower extremity and foot some trophic skin changes of the left lower extremity Patient is able to perform some dorsiflexion and plantarflexion of the right lower extremity Patient is able to wiggle toes of the right lower extremity Neurovascularly intact right lower extremity Significant bruising over the bilateral upper extremities Current dressing intact over the right upper forearm which is clean and dry No pain with palpation over the right calf Pertinent studies: X-rays of the right knee taken on 06/16/2020: No evidence of fracture or subluxation of the right knee; report states high-grade stenosis of the right SFA is suspected based on calcium load on the vessel Assessment: Large right lower extremity hematoma Bilateral lower extremity swelling greater on the right than the left Right lower extremity pain Inability ambulate due to right lower extremity pain History of fall Current Coumadin use History of mechanical valve Diabetes mellitus Hyperlipidemia Hypertension Atrial fibrillation Coronary artery disease COPD Prostate disorder Sleep apnea Vascular disorder Plan: 1. Patient has been discussed in detail with Dr. Jefry Mulligan who has also seen the patient at the bedside. Patient does have significant swelling with a large hematoma and ecchymosis over the right lower extremity below the knee and at the posterior calf and distal thigh. He has edema of the bilateral lower extremities greater on the right than the left as well. He does bruise easily given his Coumadin use. He has a blister on the anterior lateral superior portion of his right escobar that has remained closed. He has difficulty with active range of motion including dorsiflexion and plantar flexion but he is able to perform some movement with dorsiflexion and plantarflexion. He is able to wiggle his toes. He is neurovascularly intact for the right lower extremity. He does have increased pain with palpation over the right lower extremity from t he knee extending to the ankle anteriorly. He does not have any pain with palpation over the right calf. Reviewing of x-ray imaging taken on 06/16/2020 does not show any evidence of fracture dislocation of his right knee. The wound site over his right knee appears to be healing appropriately. Even with the right lower extremity swelling, his compartments continue to be soft. We feel there is some superficial and subcutaneous hematoma but do not currently believe that it involves a significant portion of the muscle. He is not having neurological change in his right lower extremity and do not feel his muscle is in jeopardy at this point. At this time we will currently plan to continue with conservative treatment. Patient could benefit from elevation and warm compresses. We are not currently planning for acute surgical intervention is right lower extremity. Patient states at the bedside he would like to try to avoid surgical intervention of the right lower extremity unless it becomes medically necessary. We'll continue to follow patient closely. Case management is planning to see the patient to discuss options at the time of discharge including discharged to a rehabilitation facility or home with home health services. Patient will continue to remain in the hospital for further treatment and evaluation until at least tomorrow, 06/22/2020. Following discharge, the patient may follow-up with Rock Salguero PA-C or Dr. Jefry Mulligan at [facility] in 1 week following discharge. 2. Patient will continue be seen and examined by medicine for his other medical diagnoses.
[2020-06-21] MEDS ORDERED: SODIUM CHLORIDE 0.9% 500 ML 500 ML IV ONE (13:07)
[2020-06-21] MEDS ORDERED: INSULIN REGULAR 100 UNIT/ML VIAL IV ONE (13:27)
[2020-06-21] MEDS ORDERED: DEXTROSE 50% SYRINGE 50 ML IVP STA (13:27)
--- NOTE | 2020-06-21 13:28 | P.NPCON ---
History of Present Illness - Reason for Consult acute renal failure - History of Present Illness Reason for consultation: Acute kidney injury History of present illness: Patient is a 75-year-old male seen in renal consultation for acute kidney injury. Creatinine was 0.97 on admission and is up to 1.8 today. Patient's blood pressure has been low in the systolic 90s over 50s. This morning it was 100/62. Potassium level is also up to 5.9 this morning. He did receive lisinopril, spironolactone as well as potassium supplementation this morning. He is also maintained on Lasix 80 mg in the morning and 40 mg in the evening. Patient presented to the hospital after he sustained a fall about 4 days ago and injured his knee. Patient states he had drank some alcohol and lost his balance. He is being followed by orthopedic surgery. Patient's right lower extremity is quite erythematous and swollen. He does have trace edema in his left lower extremity. He denies use of nonsteroidals. No vomiting or diarrhea. Oral intake is fair. Denies family history of renal disease. No history of diabetes. No fever or chills. No hematuria. Has been voiding. Vital signs are stable. General: The patient appeared well nourished and normally developed. HEENT: Head exam is unremarkable. Neck is without jugular venous distension. LUNGS: Breath sounds decreased. HEART: Rate and Rhythm are regular. ABDOMEN: Soft, nontender. EXTREMITITES: 2+ edema right lower extremity. Erythema noted. No drainage. Trace edema left lower extremity. Past Medical History Past Medical History: Atrial Fibrillation, Asthma, Coronary Artery Disease (CAD), Cancer, COPD, Diabetes Mellitus, GERD/Reflux, Hearing Disorder / Deafness, Hyperlipidemia, Hypertension, Osteoarthritis (OA), Pneumonia, Prostate Disorder, Sleep Apnea/CPAP/BIPAP, Vascular Disorder Additional Past Medical History / Comment(s): Prostate cancer. see Dr Nguyễn H&P FOR CARDIAC HISTORY , O2 2L PRN AND AT BEDTIME , hiatal hernia, kidney stones, "bad back", past a fib cardiomyopathy aortic stenosis, PRE- DIABETIC -DIET CONTROLLED, aortic valve replacment 09/03 History of Any Multi-Drug Resistant Organisms: None Reported Past Surgical History: Ablation, Bladder Surgery, Cholecystectomy, Heart Catheterization With Stent, Hernia Repair, Tonsillectomy Additional Past Surgical History / Comment(s): CARDIOVERSION, MUKESH FEMORAL BYPASS SURGERY, MUKESH.inguinal hernia, UMBILICAL HERNIA REPAIR, surgery for PILONIDAL CYST, mukesh CATARACTS, ARCH/AORTOGRAM, cystoscopy for KIDNEY STONE REMOVAL x 3, LT CAROTID ENDARTECTOMY. BRAYDEN 05/10/17, 06/06, 06/04/19, 2 stents to the RCA Past Anesthesia/Blood Transfusion Reactions: No Reported Reaction Date of Last Stent Placement:: 06/06/18 Past Psychological History: No Psychological Hx Reported Smoking Status: Former smoker Past Alcohol Use History: Heavy, Occasional Past Drug Use History: None Reported - Past Family History Father Family Medical History: Liver Disease Mother Family Medical History: No Reported History Additional Family Medical History / Comment(s): . Medications and Allergies Home Medications Medication Instructions Recorded Confirmed Type Montelukast [Singulair] 10 mg PO HS 09/09/13 06/20/20 History Tamsulosin [Flomax] 0.4 mg PO HS 09/09/13 06/20/20 History Spironolactone 25 mg PO HS 04/03/14 06/20/20 History Budesonide-Formot 160-4.5 Mcg 2 puff INHALATION RT-BID 08/07/16 06/20/20 History [Symbicort 160-4.5 Mcg Inhaler] Fluticasone Nasal Boody [Flonase 2 spr EA NOSTRIL DAILY 08/07/16 06/20/20 History Nasal Boody] Loratadine [Claritin] 10 mg PO DAILY 08/07/16 06/20/20 History Tiotropium 18 Mcg/Puff [Spiriva] 1 cap INHALATION RT-HS 08/07/16 06/20/20 History Solifenacin Succinate [Vesicare] 5 mg PO DAILY 05/02/17 06/20/20 History Aspirin EC [Ecotrin Low Dose] 81 mg PO DAILY 09/12/17 06/20/20 History Docusate [Colace] 200 mg PO DAILY 05/30/19 06/20/20 History Esomeprazole Magnesium [NexIUM] 40 mg PO DAILY 10/03/19 06/20/20 History Ferrous Sulfate [Iron (65 MG 325 mg PO DAILY 10/03/19 06/20/20 History Elemental)] Magnesium 250 mg PO BID 10/03/19 06/20/20 History Potassium Chloride 10 meq PO BID 10/03/19 06/20/20 History cycloSPORINE [Restasis] 1 drop BOTH EYES BID 01/15/20 06/20/20 History Nitroglycerin Sl Tabs [Nitrostat] 0.4 mg SL Q5M PRN 04/16/20 06/20/20 History allopurinoL [Zyloprim] 300 mg PO DAILY 04/16/20 06/20/20 History Ascorbic Acid [Vitamin C] 1,000 mg PO DAILY 06/02/20 06/20/20 History Cholecalciferol [Vitamin D3 (25 75 mcg PO DAILY 06/02/20 06/20/20 History Mcg = 1000 Iu)] Cyanocobalamin (Vitamin B-12) 2,500 mcg PO HS 06/02/20 06/20/20 History [Vitamin B-12] Cyclobenzaprine [Flexeril] 5 mg PO HS 06/02/20 06/20/20 History Docusate [Colace] 100 mg PO HS 06/02/20 06/20/20 History Atorvastatin [Lipitor] 40 mg PO HS tab 06/08/20 06/20/20 Rx Furosemide [Lasix] 40 mg PO HS tab 06/08/20 06/20/20 Rx Metoprolol Succinate (ER) [Toprol 150 mg PO DAILY 90 Days #90 tab 06/08/20 06/20/20 Rx XL] Furosemide [Lasix] 80 mg PO DAILY #30 tab 06/09/20 06/20/20 Rx Warfarin [Coumadin] 2.5 mg PO DAILY #30 tab 06/09/20 06/20/20 Rx lisinopriL [Zestril] 2.5 mg PO DAILY #30 tab 06/09/20 06/20/20 Rx Allergies Allergy/AdvReac Type Severity Reaction Status Date / Time [id number]-[id number]-Spg Reductase Allergy Mild Rash/Hives Verified 06/20/20 13:31 Inhibitor Physical Exam Vitals: Vital Signs Temp Pulse Pulse Resp BP Pulse Ox 06/21/20 11:38 100 06/21/20 11:26 92 06/21/20 08:09 104 H 06/21/20 08:00 16 06/21/20 07:59 108 H 06/21/20 07:00 98.1 F 96 16 100/62 98 06/21/20 02:00 98.2 F 96 16 90/56 97 06/20/20 21:45 77 03/14/21 21:37 99 06/20/20 21:32 77 06/20/20 20:00 98.2 F 71 18 90/56 97 06/20/20 15:00 98.0 F 20 90 L Intake and Output 06/20/20 06/21/20 06/21/20 22:59 06:59 14:59 Intake Total 100 Output Total 550 Balance 100 -550 Intake: Oral 100 Output: Urine 550 Other: # Voids 2 0 Results - Lab Results Most recent lab results Calcium 9.1 mg/dL (8.7-10.3) 06/21/20 04:30 06/21/20 04:30 06/21/20 04:30 Assessment and Plan Plan: Assessment: 1. Acute kidney injury secondary to hypotension and diuresis. Baseline creatinine near 1 and is up to 1.8 today. 2. Status post fall with right lower extremity injury. Orthopedic surgery following. 3. Hyperkalemia secondary to acute kidney injury, potassium supplementation, lisinopril and spironolactone. 4. Chronic systolic CHF with ejection fraction of 30-35%. 5. History of TAVR. Plan: Stop lisinopril, potassium supplementation and spironolactone. Metoprolol has been decreased as well. Continue to monitor bladder scans to rule out urinary retention. Hold Lasix. A 500 mL bolus of normal saline and 0.9 at 50 mL an hour has been ordered by the primary team. Continue to monitor renal function and urine output. Check urinalysis. Check renal ultrasound. Avoid nephrotoxins. 10 units of IV regular insulin with an amp of D50 now. Repeat potassium level this evening. Thank you for the consultation. I will continue to follow the patient with you during his hospital stay.
[2020-06-21] MEDS: SODIUM CHLORIDE 0.9% 1,000 ML IV SCH ×2 (14:16→14:17)
--- NOTE | 2020-06-21 15:51 | US ---
EXAMINATION TYPE: US kidneys/renal and bladder DATE OF EXAM: 06/21/2020 COMPARISON: CT September 12, 2017 CLINICAL HISTORY: kisha. Patient stated he fell on right body side; prior renal stones and renal cysts EXAM MEASUREMENTS: Right Kidney: 12.3 x 8.6 x 6.3 cm Left Kidney: 11.6 x 5.1 x 5.7 cm Post Void Residual Volume: not assessed on inpatient Right Kidney: multiple renal cysts with largest at superior pole = 1.7 x 2.4 x 1.9cm; shadowing renal calcification seen in upper pole = 0.6 x 0.8 x 0.2cm Left Kidney: shadowing renal calcification in inferior pole = 0.7 x 0.8 x 0.3cm; superior cortical cy st seen = 2.5 x 1.7 x 1.8cm; microcalcifications seen superior pole Bladder: wnl Bilateral Jets seen: yes Increased cortical echogenicity with few scattered small thin-walled cysts bilaterally. Bilateral belle al stones redemonstrated. Bladder satisfactorily distended. IMPRESSION: Bilateral nonobstructing nephrolithiasis redemonstrated. Evidence of chronic medical yvonne l disease bilaterally. No hydronephrosis noted bilaterally. No new suspicious perinephric fluid colle ction seen on images saved.
[2020-06-21 16:01] LABS: Appearance,Urine Clear (Clear); Bilirubin,Urine Negative (Negative); Blood,Urine Negative (Negative); Color,Urine Yellow; Glucose,Urine (UA) Negative (Negative); Ketones,Urine Negative (Negative); Leukocyte Esterase,Urine Negative (Negative); Nitrite,Urine Negative (Negative); PH, Urine 5.5 (5.0-8.0); Protein,Urine Negative (Negative); Specific Gravity,Urine 1.012 (1.001-1.035); Urobilinogen,Urine <2.0 mg/dL (<2.0)
[2020-06-21] MEDS ORDERED: SODIUM CHLORIDE 0.9% 250 ML IV ONE (20:15)
[2020-06-21] MEDS ORDERED: TETANUS-DIPHTHERIA TOX (PF) 0.5 ML VIAL IM ONE (20:46)
[2020-06-21] MEDS ORDERED: LINEZOLID 600 MG in DEXTROSE/WATER 1 300ML.BAG IVPB STA (20:49)
--- NOTE | 2020-06-21 20:56 | P.PN ---
Subjective Patient is a 75-year-old male with a known history of atrial fibrillation and valvular heart disease, hypertension, diabetes type 2, osteoarthritis, cardiomyopathy, peripheral vascular disease with bifemoral bypass surgery, residual smoking and heavy alcohol use and obstructive sleep apnea on BiPAP at home and other multiple medical problems with history of aortic valve replacement presents to ER due to worsening right lower extremity pain and knee pain. Patient states that he fell about 4 days ago and injuring his right knee and also laceration on the right forearm. Patient developed bruising over the right lower extremities. Patient states that he was intoxicated and lost his balance. Patient presents to ER due to pain. Patient is unable to bend his right lower extremity and flex his right knee. No numbness or tingling sensation. Denies any fever or chills. No cough or sputum production. No chest pain or shortness breath. No palpitations. No dysuria or hematuria. Laboratory data showed WBC 7.8, hemoglobin 10.5 and MCV 102.8 INR 1.3 Sodium 137 potassium 4.4 chloride 97 bicarb 34 BUN 25 and creatinine 0.97 Bilirubin level is 1.5 and CK 34 and coronavirus PCR not detected Venous duplex of the right lower extremity showed no signs of DVT in the right leg. Subjective: 06/21/2020 This is a pleasant 75 years old male with multiple medical problems as above. Presents because he fell last Sunday stating he drank 2 beers and wine which is not usual for him to drink daily, later on that day he fell and there is a superficial horizontal wound on his right knee and right elbow. His right leg is swollen erythematous and reddish in color with 2-3 small blisters on the front of the upper leg, his right leg is warm and painful/tender. Ultrasound of the right leg is negative for DVT. On the presentation his INR was subtherapeutic at 1.3 and he is on Coumadin for his history of paroxysmal atrial fibrillation, although he has history of chronic systolic CHF with ejection fraction 30-35% and DVT status post bifemoral bypass surgery. Coumadin was placed on hold on admission for suspicion of hematoma however this is less likely given his subtherapeutic INR to have this became hematoma therefore cellulitis is suspected. I ordered wound culture, check forcalcitonin and C-reactive protein, start on cefazolin and consult infectious disease team Also his blood pressure was borderline line, with systolic BP is 90-100, his lisinopril and spironolactone were held and metoprolol dose was lowered from 150 down to 100 mg daily, renal ultrasound showing no hydronephrosis bilateral kidney stone. Also a bolus of normal saline of 500 mL provided and patient was started on normal saline at 50 mL per hour with nephrology team consult On checking on the evening patient was still hypotensive 81/52, another normal saline boluses of 250 is a provided and was increased to 75 mL/h and because of persistent hypotension Zyvox is added to cefazolin . Patient states that he is sure he got tested as he thinks it may be in this hospital. I called our pharmacist at the checked he did not receive tetanus in the hospital and 1 dose is ordered however patient denies any chest pain or dyspnea. He denies abdominal pain, no nausea, vomiting or weakness or headache Review of Systems Constitutional: Patient denies any fever or chills . No generalized weakness or weight loss. Abdomen: Patient denied nausea vomiting and diarrhea and abdominal pain. Cardiovascular: Patient denies any chest pain or short of breath no palpitations. Respiratory: patient denied any cough or sputum production. No shortness of breath Neurologic: Patient denied any numbness or tingling headache. Active Medications Generic Name Dose Route Start Last Admin Trade Name Freq PRN Reason Stop Dose Admin Allopurinol 300 mg 06/21/20 09:00 06/21/20 09:07 Allopurinol 300 Mg Tab PO 300 mg DAILY JULITA Administration Ascorbic Acid 1,000 mg 06/21/20 09:00 06/21/20 09:06 Ascorbic Acid 500 Mg Tab PO 1,000 mg DAILY JULITA Administration Aspirin 81 mg 06/20/20 15:30 06/21/20 09:06 Aspirin 81 Mg PO 81 mg DAILY JULITA Administration Atorvastatin Calcium 40 mg 06/20/20 21:00 06/20/20 23:13 Atorvastatin 40 Mg Tab PO 40 mg HS JULITA Administration Budesonide/Formoterol Fumarate 2 puff 06/20/20 20:00 06/21/20 07:59 Symbicort 160-4.5 Mcg Inhaler INHALATION 2 puff RT-BID JULITA Administration Cholecalciferol 75 mcg 06/21/20 09:00 06/21/20 09:07 Cholecalciferol 25 Mcg (1000 Iu) Tablet PO 75 mcg DAILY JULITA Administration Cyanocobalamin 2,500 mcg 06/20/20 21:00 06/20/20 23:12 Cyanocobalamin 500 Mcg Tab PO 2,500 mcg HS JULITA Administration Cyclosporine 1 drops 06/20/20 21:00 06/21/20 09:08 Cyclosporine 0.05% Ophth 0.4 Ml Droperette BOTH EYES 1 drops BID JULITA Administration Docusate Sodium 100 mg 06/20/20 21:00 06/20/20 23:12 Docusate 100 Mg Cap PO 100 mg HS JULITA Administration Docusate Sodium 200 mg 06/21/20 09:00 06/21/20 09:06 Docusate 100 Mg Cap PO 200 mg DAILY JULITA Administration Ferrous Sulfate 325 mg 06/21/20 09:00 06/21/20 09:06 Ferrous Sulfate 325 Mg Tab PO 325 mg DAILY JULITA Administration Fluticasone Propionate 2 spray 06/21/20 09:00 06/20/20 23:12 Fluticasone 50mcg/[place] Nasal 16gm EA NOSTRIL 2 spray DAILY JULITA Administration Heparin Sodium (Porcine) 5,000 unit 06/21/20 00:00 06/21/20 16:41 Heparin Sodium,Porcine 5,000 Unit/Ml 1 Ml Vial SQ 5,000 unit Q8HR JULITA Administration Cefazolin Sodium 2 gm/ Sodium 50 mls @ 100 mls/hr 06/21/20 13:30 06/21/20 14:16 Chloride IVPB 100 mls/hr Q8H JULITA Administration Sodium Chloride 1,000 mls @ 50 mls/hr 06/21/20 13:15 06/21/20 14:17 Saline 0.9% IV 50 mls/hr .Q20H JULITA Administration Ipratropium [place] 0.5 mg 06/20/20 20:00 06/21/20 16:34 Ipratropium 0.5 Mg/2.5 Ml Nebu INHALATION 0.5 mg RT-QID JULITA Administration Loratadine 10 mg 06/21/20 09:00 06/21/20 09:06 Loratadine 10 Mg Tab PO 10 mg DAILY JULITA Administration Magnesium Oxide 200 mg 06/20/20 21:00 06/21/20 09:07 Magnesium Oxide 400 Mg Tab PO 200 mg BID JULITA Administration Metoprolol Succinate 100 mg 06/22/20 09:00 Metoprolol Succinate (Er) 100 Mg Tab.Er.24h PO DAILY JULITA Montelukast Sodium 10 mg 06/20/20 21:00 06/20/20 23:13 Montelukast 10 Mg Tab PO 10 mg HS JULITA Administration Morphine Sulfate 4 mg 06/20/20 12:45 06/21/20 09:09 Morphine Sulfate 4 Mg/Ml Syringe IV 4 mg Q4HR PRN Administration Severe Pain Naloxone HCl 0.2 mg 06/20/20 12:45 Naloxone 0.4 Mg/Ml 1 Ml Vial IV Q2M PRN Opioid Reversal Ondansetron HCl 4 mg 06/20/20 12:45 Ondansetron 4 Mg/2 Ml Vial IVP Q8HR PRN Nausea And Vomiting Pantoprazole Sodium 40 mg 06/20/20 16:00 06/21/20 09:06 Pantoprazole 40 Mg Tablet PO 40 mg DAILY JULITA Administration Tamsulosin HCl 0.4 mg 06/20/20 21:00 06/20/20 23:13 Tamsulosin 0.4 Mg Cap.Er.24h PO 0.4 mg HS JULITA Administration Thiamine HCl 100 mg 06/21/20 09:00 06/21/20 09:06 Thiamine 100 Mg Tab PO 100 mg DAILY JULITA Administration Trospium 20 mg 06/21/20 09:00 06/21/20 09:09 Trospium Chloride 20 Mg Tablet PO 20 mg DAILY JULITA Administration Objective - Vital Signs Vital signs: Vital Signs Temp 98.1 F 06/21/20 07:00 Pulse 100 06/21/20 11:38 Resp 16 06/21/20 08:00 BP 100/62 06/21/20 07:00 Pulse Ox 98 06/21/20 07:00 Intake & Output 06/20/20 06/21/20 06/21/20 18:59 06:59 18:59 Intake Total 100 Balance 100 Weight 115.212 kg Intake: Oral 100 Other: # Voids 1 0 - Exam GENERAL: The patient is alert and oriented x3, not in any acute distress. Well developed, well nourished. HEENT: Pupils are round and equally reacting to light. EOMI. No scleral icterus. No conjunctival pallor. Normocephalic, atraumatic. No pharyngeal erythema. No thyromegaly. CARDIOVASCULAR: S1 and S2 present. No murmurs, rubs, or gallops. PULMONARY: Chest is clear to auscultation, no wheezing or crackles. ABDOMEN: Soft, nontender, nondistended, normoactive bowel sounds. No palpable organomegaly. MUSCULOSKELETAL: No joint swelling or deformity. -EXTREMITIES: No cyanosis, clubbing, or pedal edema. Right leg is swollen, painful and tender and red in color, there are 2-3 blisters on the upper anterior right leg, also there is superficial horizontal wound on the right knee. Also there is some wound on the right elbow. Patient can move his right elbow and right leg normally NEUROLOGICAL: Gross neurological examination did not reveal any focal deficits. SKIN: No rashes. no petechiae. - Labs CBC & Chem 7: 06/21/20 04:30 06/21/20 18:07 Labs: Abnormal Lab Results - Last 24 Hours (Table) 06/21/20 06/21/20 Range/Units 04:30 04:30 RBC 2.85 L (4.40-5.60) X 10*6/uL Hgb 9.4 L (13.0-17.0) g/dL Hct 30.3 L (39.6-50.0) % MCV 106.3 H (80.0-97.0) fL MCH 33.0 H (27.0-32.0) pg MCHC 31.0 L (32.0-37.0) g/dL RDW 15.3 H (11.5-14.5) % Potassium 5.9 H (3.5-5.5) mmol/L BUN 37.0 H (9.0-27.0) mg/dL Creatinine 1.8 H (0.6-1.5) mg/dL Est GFR (CKD-EPI)AfAm 42.0 L (60.0-200.0) Est GFR (CKD-EPI)NonAf 36.3 L (60.0-200.0) BUN/Creatinine Ratio 20.56 H (12.00-20.00) Ratio Assessment and Plan Assessment: Right leg redness suspicious for cellulitis rather than hematoma which is felt less likely with INR is subtherapeutic on admission Fall secondary to alcohol intoxication 4-5 days prior to admission Right arm bruising and laceration. Paroxysmal atrial fibrillation on anticoagulation with Coumadin. INR 1.3 on admission History of aortic valve replacement COPD not in exacerbation Diabetes type 2 GERD Hearing disorder/deafness Hypertension Hyperlipidemia Obstructive sleep apnea on CPAP Peripheral vascular disease history of bilateral femoral bypass surgery Prior history of smoking and alcohol use disorder Plan: This is a pleasant 75 years old male who presents with Right leg pain and redness and swelling. Cellulitis is more likely, hematomas less likely. Start the patient on cefazolin, given 1 dose of Zyvox because patient persistent hypotension to cover for gram-negative and MRSA. Check pro-calcitonin, C- reactive protein and blood culture. Consult infectious disease team Also patients with hypertension and they KI, hold lisinopril, spironolactone, lower the dose of metoprolol to 100 milligrams daily, continue with normal saline at 75 mL/h and boluses as needed. [employer] team on the case. Labs and medication were reviewed.. Continue same treatment. Continue with symptomatic treatment. Resume home medication. Monitor lytes and vitals. DVT and GI prophylaxis. Further recommendations as per clinical course of the patient DVT prophylaxis: Subcutaneous heparin, keep holding Coumadin, keep monitoring closely for any worsening hematoma or bleeding GI Prophylaxis: Pepcid PT/OT: Pending Prognosis is guarded
[2020-06-21] MEDS ORDERED: DIPH,PERTUS(ACELL)TETVAC-LF 0.5 ML VIAL IM ONE (21:00)
[2020-06-21] MEDS: CYANOCOBALAMIN 500 MCG TAB PO SCH (21:27)
[2020-06-21] MEDS: TAMSULOSIN 0.4 MG CAP.ER.24H PO SCH (21:27)
[2020-06-21] MEDS: MONTELUKAST 10 MG TAB PO SCH (21:27)
[2020-06-21] MEDS: ATORVASTATIN 40 MG TAB PO SCH (21:27)
[2020-06-21] MEDS: LINEZOLID 600 MG in DEXTROSE/WATER 1 300ML.BAG IVPB SCH (22:48)
[2020-06-22] MEDS: HEPARIN SODIUM,PORCINE 5,000 UNIT/ML 1 ML VIAL SQ SCH ×4 (00:03→19:49)
[2020-06-22 04:57] LABS: ALT 20 U/L (4-49); AST 24 U/L (17-59); African American GFR (CKD) 66 (>60 ml/min/1.73 sqM); Albumin 3.1 g/dL (3.5-5.0); Albumin/Globulin Ratio 1.2; Alkaline Phosphatase 57 U/L (38-126); Anion Gap 1 mmol/L; Blood Urea Nitrogen 35 mg/dL (9-20); Carbon Dioxide 33 mmol/L (22-30); Chloride 95 mmol/L (98-107); Globulin 2.6 g/dL; Glucose 104 mg/dL (74-99); Non-African American GFR(CKD) 57 (>60 ml/min/1.73 sqM); Potassium 4.7 mmol/L (3.5-5.1); Sodium 129 mmol/L (137-145); Total Protein 5.7 g/dL (6.3-8.2)
--- NOTE | 2020-06-22 06:22 | CONS ---
CONSULTATION DATE OF SERVICE: 06/21/2020 REASON FOR CONSULTATION: Right lower extremity cellulitis. HISTORY OF PRESENT ILLNESS: The patient is a 75 -year-old male who apparently did have a fall four days ago. The patient states he was drinking heavily and tripped and fell down. The patient developed ulceration right [id number] area for which the patient was evaluated at [facility]. The patient did have Steri-Strips applied to the area of laceration on the right leg and the patient was subsequently sent home. The patient mentioned after he had been home, he started having swelling and redness of the right lower extremity that got worse for the next few days and hence he presented back to the hospital. Patient complaining of pain to the right leg more of a dull aching to throbbing 5 to 6/10 and no radiation with associated swelling and redness. Did have some chills but denies high-grade fever. On presentation to the hospital, the patient was afebrile and no fever has been recorded during hospital stay. The patient did have a normal white count. Creatinine was and repeat is 1.8. Urine was negative. Mata PCR was negative. The patient did have cultures obtained from the right leg wound. He has been started on cefazolin. Infectious Disease was consulted for further management of antibiotic therapy. REVIEW OF SYSTEMS: Positive points have been mentioned in HPI. Rest of the systems are negative. PAST MEDICAL HISTORY: Atrial fibrillation, asthma, coronary artery disease, COPD, diabetes mellitus, gastroesophageal reflux disease, hypertension, hyperlipidemia, sleep apnea, prostate disorder, osteoarthritis. PAST SURGICAL HISTORY: Cholecystectomy, PTCA with stenting, hernia repair, tonsillectomy and bladder surgery. SOCIAL HISTORY: The patient did have a remote smoking, heavy drinker, no drug use. FAMILY HISTORY: Father with history of liver disease. ALLERGIES: STATINS. MEDICATIONS: The patient is currently on Zyloprim, vitamin C, aspirin, Lipitor, Symbicort, cefazolin 2 grams q.8 hours, vitamin D3, Colace, iron sulfate, heparin, linezolid, Toprol- XL, Singulair, Narcan, Zofran. PHYSICAL EXAMINATION: VITAL SIGNS: Blood pressure 171/52 with a pulse of 94, temperature 98.2, he is 99% on room air. GENERAL DESCRIPTION: Patient is an elderly male up in the chair in no distress. LUNGS: Unlabored breathing, clear to auscultation anteriorly. HEART: S1-S2, regular rate and rhythm. ABDOMEN: Soft, no tenderness. EXTREMITIES: Right leg below the knee did have laceration, . Did have swelling and redness diffusely to the right lower leg, slightly warm to touch. LABS: Hemoglobin 9.4, white count 7.15, BUN of 37, creatinine 1.8. DIAGNOSTIC IMPRESSION: Patient with acute right lower extremity cellulitis in this patient whose symptoms started after the patient did have a fall with laceration to the right lower leg, likely the source of this cellulitis and likely from a gram-positive skin sandeep. PLAN: 1. Cefazolin 2 grams q.8 hours to continue. 2. Right leg Sulaiman wrap to the leg to keep the swelling down. 3. We will follow on the clinical condition and further adjust medication if needed thank you for this consultation. Will follow this patient along with you. [id number] / IJN: [id number] /
[2020-06-22] MEDS: IPRATROPIUM 0.5 MG/2.5 ML NEBU INHALATION SCH ×4 (07:37→21:43)
[2020-06-22] MEDS: SYMBICORT 160-4.5 MCG INHALER INHALATION SCH ×2 (07:37→21:43)
[2020-06-22] MEDS: CHOLECALCIFEROL 25 MCG (1000 IU) TABLET PO SCH (08:49)
[2020-06-22] MEDS: PANTOPRAZOLE 40 MG TABLET PO SCH (08:49)
[2020-06-22] MEDS: TROSPIUM CHLORIDE 20 MG TABLET PO SCH (08:49)
[2020-06-22] MEDS: ASCORBIC ACID 500 MG TAB PO SCH (08:49)
[2020-06-22] MEDS: allopurinoL 300 MG TAB PO SCH (08:50)
[2020-06-22] MEDS: THIAMINE 100 MG TAB PO SCH (08:50)
[2020-06-22] MEDS: FERROUS SULFATE 325 MG TAB PO SCH (08:50)
[2020-06-22] MEDS: DOCUSATE 100 MG CAP PO SCH ×2 (08:50→19:52)
[2020-06-22] MEDS: METOPROLOL SUCCINATE (ER) 100 MG TAB.ER.24H PO SCH (08:50)
[2020-06-22] MEDS: ASPIRIN 81 MG PO SCH (08:50)
[2020-06-22] MEDS: MAGNESIUM OXIDE 400 MG TAB PO SCH ×2 (08:50→19:51)
[2020-06-22] MEDS: LORATADINE 10 MG TAB PO SCH (08:50)
[2020-06-22] MEDS: LINEZOLID 600 MG in DEXTROSE/WATER 1 300ML.BAG IVPB SCH (08:51)
[2020-06-22] MEDS: cycloSPORINE 0.05% OPHTH 0.4 ML DROPERETTE BOTH EYES SCH ×2 (08:51→21:43)
[2020-06-22] MEDS: FLUTICASONE 50MCG/SPRAY NASAL 16GM EA NOSTRIL SCH (08:51)
--- NOTE | 2020-06-22 09:10 | P.PN ---
Progress Note - Text Progress Note Date: 06/22/20 Orthopedics: History of present illness: Patient is a very pleasant 75-year-old male who is seen and examined at bedside for follow-up evaluation of his right lower extremity. He sustained a fall approximately 5 days ago falling on to his left knee. He was into the emergency department for further evaluation. He had a laceration at that time. Wound was closed with glue and Steri-Strips. Secondary to the patient's thin skin decision was made not to repair with sutures. Patient states he was discharged from the emergency department. His right lower extremity pain and swelling have been worsening and he presented back to the emergency department and was admitted. Since being seen and examined at the bedside yesterday, he has not had any significant change in his symptoms. They have not improved or worsened. He has significant pain and swelling from the knee down to the foot. He has significant ecchymosis with hematoma around the right escobar and calf and extending up to the posterior thigh. He has a blister over the escobar as well and has remained closed. The Steri-Strips remain intact over the wound out active drainage. He has had some improvement with dorsiflexion and plantar flexion right lower extremity. He has swelling in the left lower extremity as well but to a lesser degree. He did sustain a fall out of the chair yesterday when trying to get back to the bed. He denies any injury that time. He states he was unstable when he fell. He does admit to a mechanical valve and is on Coumadin. He states he significantly bruises easily and frequent. He chronically has bruising in the bilateral upper extremities. Patient's past medical history includes atrial fibrillation, coronary artery disease, COPD, diabetes mellitus, hyperlipidemia, hypertension tension, prostate disorder, sleep apnea, and vascular disorder. Patient states at bedside he did just eat. Patient continues to be seen and examined by medicine. Physical Exam: Patient is awake, alert, and oriented 3 Vital signs stable Good chest excursion with deep inspiration and expiration Examination of the right lower extremity shows large hematoma with ecchymosis at the right knee extending all the way to the ankle anteriorly and laterally and over the calf Hematoma and ecchymosis also extends up the right posterior distal thigh Evidence of 1 fairly large blister in 1 very small blister at the right anterior lateral superior portion of the lower extremity below the knee Steri-Strips remain intact over the wound site at the anterior right knee Wound site at the right knee is currently dry with some scab formation without active drainage Significant pain with palpation over the right knee and calf 2+ pitting edema over the right lower extremity and right foot 1+ pitting edema over the left lower extremity and foot some trophic skin changes of the left lower extremity Patient is able to perform some dorsiflexion and plantarflexion of the right lower extremity Patient is able to wiggle toes of the right lower extremity Neurovascularly intact right lower extremity Significant bruising over the bilateral upper extremities Current dressing intact over the right upper forearm which is clean and dry No pain with palpation over the right calf Pertinent studies: X-rays of the right knee taken on 06/16/2020: No evidence of fracture or subluxation of the right knee; report states high-grade stenosis of the right SFA is suspected based on calcium load on the vessel Assessment: Large right lower extremity hematoma Bilateral lower extremity swelling greater on the right than the left Right lower extremity pain Inability ambulate due to right lower extremity pain History of fall Current Coumadin use History of mechanical valve Diabetes mellitus Hyperlipidemia Hypertension Atrial fibrillation Coronary artery disease COPD Prostate disorder Sleep apnea Vascular disorder Plan: 1. We will currently planned to continue with our plan as previously set forth. Patient has been discussed in detail with Dr. Jefry Mulligan. Patient does have significant swelling with a large hematoma and ecchymosis over the right lower extremity below the knee and at the posterior calf and distal thigh. He has edema of the bilateral lower extremities greater on the right than the left as well. He does bruise easily given his Coumadin use. He has a blister on the anterior lateral superior portion of his right escobar that has remained closed. He has difficulty with active range of motion including dorsiflexion and plantar flexion but has had some improvement with dorsiflexion and plantarflexion. He is able to wiggle his toes. He is neurovascularly intact for the right lower extremity. He does have increased pain with palpation over the right lower extremity from the knee extending to the ankle anteriorly. He does not have any pain with palpation over the right calf. Reviewing of x-ray imaging taken on 06/16/2020 does not show any evidence of fracture dislocation of his right knee. The wound site over his right knee appears to be healing appropriately. Even with the right lower extremity swelling, his compartments continue to be soft. We feel there is some superficial and subcutaneous hematoma but do not currently believe that it involves a significant portion of the muscle. He is not having neurological change in his right lower extremity and do not feel his muscle is in jeopardy at this point. At this time we will currently plan to continue with conservative treatment. Patient could benefit from elevation and warm compresses which he states have not been done yet. We will plan for that today. We are not currently planning for acute surgical intervention is right lower extremity. Patient states at the bedside he would like to try to avoid surgical intervention of the right lower extremity unless it becomes medically necessary. We'll continue to follow patient closely. Case management is planning to see the patient to discuss options at the time of discharge including discharged to a rehabilitation facility or home with home health services. Patient will continue to remain in the hospital for further treatment and evaluation until at least tomorrow, 06/23/2020. Following discharge, the patient may follow-up with Rock Salguero PA-C or Dr. Jefry Mulligan at [facility] in 1 week following discharge. 2. Patient will continue be seen and examined by medicine for his other medical diagnoses
[2020-06-22 09:15] LABS: Basophils # (A) 0.01 X 10*3/uL (0.00-0.10); Basophils % (A) 0.2 %; Eosinophils # (A) 0.04 X 10*3/uL (0.04-0.35); Eosinophils % (A) 0.6 %; HCT 27.1 % (39.6-50.0); HGB 8.8 g/dL (13.0-17.0); Lymphocytes % (A) 17.4 %; MCH 33.3 pg (27.0-32.0); MCHC 32.5 g/dL (32.0-37.0); MCV 102.7 fL (80.0-97.0); Mean Platelet Volume 10.8 fL (9.5-12.2); Monocytes # (A) 0.92 X 10*3/uL (0.20-1.00); Monocytes % (A) 14.6 %; Neutrophils # (A) 4.23 X 10*3/uL (1.80-7.70); Platelet Count 176 X 10*3/uL (140-440); RBC 2.64 X 10*6/uL (4.40-5.60); RDW 14.8 % (11.5-14.5); WBC 6.31 X 10*3/uL (4.50-10.00)
[2020-06-22] MEDS: MORPHINE SULFATE 4 MG/ML SYRINGE IV PRN ×2 (11:10→19:50)
--- NOTE | 2020-06-22 11:38 | P.PN ---
Subjective Patient is seen in follow for acute kidney injury. Renal function better today. He is receiving IV fluids. Good urine output. Oral intake. No vomiting or diarrhea. Vital signs are stable. General: The patient appeared well nourished and normally developed. HEENT: Head exam is unremarkable. Neck is without jugular venous distension. LUNGS: Breath sounds decreased. HEART: Rate and Rhythm are regular. ABDOMEN: Soft, nontender. EXTREMITITES: 2+ edema right lower extremity. Erythematous. Trace edema left lower extremity. Objective - Vital Signs Vital signs: Vital Signs Temp 98.2 F 06/22/20 07:00 Pulse 116 H 06/22/20 11:09 Resp 18 06/22/20 07:00 BP 93/56 06/22/20 07:00 Pulse Ox 97 06/22/20 07:00 Intake & Output 06/21/20 06/22/20 06/22/20 18:59 06:59 18:59 Intake Total 1500 Output Total 850 Balance -850 1500 Intake: Intake, IV Titration 1500 Amount Linezolid 600 mg In 300 Dextrose/Water 1 300ml. bag @ 150 mls/hr IVPB BID JULITA Rx#:[id number] Sodium Chloride 0.9% 1, 750 000 ml @ 75 mls/hr IV . [id number] JULITA Rx#:[id number] Sodium Chloride 0.9% 250 250 ml @ 999 mls/hr IV .Q16M [facility] Rx#:[id number] ceFAZolin 2 gm In Sodium 200 Chloride 0.9% 50 ml @ 100 mls/hr IVPB Q8H [facility] Rx#: [id number] Output: Urine 850 Other: Voiding Method Diaper Diaper Incontinent Incontinent # Voids 2 2 - Labs CBC & Chem 7: 06/22/20 04:12 06/22/20 04:12 Labs: Abnormal Lab Results - Last 24 Hours (Table) 06/21/20 06/21/20 06/22/20 Range/Units 18:07 18:07 04:12 RBC (4.40-5.60) X 10*6/uL Hgb (13.0-17.0) g/dL Hct (39.6-50.0) % MCV (80.0-97.0) fL MCH (27.0-32.0) pg RDW (11.5-14.5) % Sodium 129 L (137-145) mmol/L Chloride 95 L (98-107) mmol/L Carbon Dioxide 33 H (22-30) mmol/L BUN 35 H (9-20) mg/dL Glucose 104 H (74-99) mg/dL C-Reactive Protein 79.5 H (<10.0) mg/L Total Protein 5.7 L (6.3-8.2) g/dL Albumin 3.1 L (3.5-5.0) g/dL Procalcitonin 0.10 H (0.02-0.09) ng/mL 06/22/20 Range/Units 04:12 RBC 2.64 L (4.40-5.60) X 10*6/uL Hgb 8.8 L (13.0-17.0) g/dL Hct 27.1 L (39.6-50.0) % MCV 102.7 H (80.0-97.0) fL MCH 33.3 H (27.0-32.0) pg RDW 14.8 H (11.5-14.5) % Sodium (137-145) mmol/L Chloride (98-107) mmol/L Carbon Dioxide (22-30) mmol/L BUN (9-20) mg/dL Glucose (74-99) mg/dL C-Reactive Protein (<10.0) mg/L Total Protein (6.3-8.2) g/dL Albumin (3.5-5.0) g/dL Procalcitonin (0.02-0.09) ng/mL Microbiology - Last 24 Hours (Table) 06/21/20 16:45 Wound Culture - Preliminary Knee - Right 06/21/20 16:45 Anaerobic Culture - Preliminary Knee - Right Assessment and Plan Plan: Assessment: 1. Acute kidney injury secondary to hypotension and diuresis. Baseline creatinine near 1 and peaked at 1.8 this admission - 1.25 today. UA benign. No hydronephrosis noted on kidney ultrasound. 2. Status post fall with right lower extremity injury/cellulitis. Orthopedic surgery and ID following. 3. Hyperkalemia secondary to acute kidney injury, potassium supplementation, lisinopril and spironolactone. Resolved. 4. Chronic systolic CHF with ejection fraction of 30-35%. 5. History of TAVR. 6. Hyponatremia. Hypervolemic. Plan: Continue to hold lisinopril, potassium supplementation and spironolactone. Resume Lasix 40 mg orally once daily. Hep-Lock IV fluids. Continue to monitor renal function and urine output. Avoid nephrotoxins. 1500 mL fluid restriction. Repeat electrolytes in the morning.
--- NOTE | 2020-06-22 11:56 | CDI ---
Documentation Clarification Form Date: 06/22/2020 11:29:52 AM From: Margaret Oropeza RN CCDS Admit Date: 06/21/2020 09:10:00 PM Patient Name: Mau Mccullough V Visit Number: [id number] Discharge Date: ATTENTION: The Clinical Documentation Specialists (CDI) and [facility] Coding Staff appreciate your assistance in clarifying documentation. Please respond to the clarification below the line at the bottom and electronically sign. The CDI & [facility] Coding staff will review the response and follow-up if needed. Please note: Queries are made part of the Legal Health Record. If you have any questions, please contact the author of this message via ITS. Dr. Anne E Sheet The patient has diabetes type 2, as indicated on H&P 06/20. History/Risk Factors: 75-year-old male presents to the ED for worsening right lower extremity and knee pain after a fall four days ago with deep bruising over the extremity. Medical history: DM diet controlled. H&P 06/20 Clinical Indicators: Right leg redness suspicious for cellulitis rather than hematoma which is felt less likely with INR is subtherapeutic on admission. IM progress note 06/21 to current Glucose: 06/20 110; 06/21 99; 06/22 104. Treatment: Linezolid 600mg IVPB Bid started 06/21 current. Destrose 50% 50ml IVP x1 06/21; Humulin R 10 units IV x1 06/21. In order to capture the severity of Illness and necessary documentation specificity, please clarify if cellulitis is associated to the DM: Right lower extremity cellulitis Associated with diabetes No association with diabetes Other, please specify Unable to Determine (Last Revision: January 2017) answer: No association with diabetes MTDD
--- NOTE | 2020-06-22 12:55 | P.PN ---
Subjective Patient is a 75-year-old male with a known history of atrial fibrillation and valvular heart disease, hypertension, diabetes type 2, osteoarthritis, cardiomyopathy, peripheral vascular disease with bifemoral bypass surgery, residual smoking and heavy alcohol use and obstructive sleep apnea on BiPAP at home and other multiple medical problems with history of aortic valve replacement presents to ER due to worsening right lower extremity pain and knee pain. Patient states that he fell about 4 days ago and injuring his right knee and also laceration on the right forearm. Patient developed bruising over the right lower extremities. Patient states that he was intoxicated and lost his balance. Patient presents to ER due to pain. Patient is unable to bend his right lower extremity and flex his right knee. No numbness or tingling sensation. Denies any fever or chills. No cough or sputum production. No chest pain or shortness breath. No palpitations. No dysuria or hematuria. Laboratory data showed WBC 7.8, hemoglobin 10.5 and MCV 102.8 INR 1.3 Sodium 137 potassium 4.4 chloride 97 bicarb 34 BUN 25 and creatinine 0.97 Bilirubin level is 1.5 and CK 34 and coronavirus PCR not detected Venous duplex of the right lower extremity showed no signs of DVT in the right leg. Subjective: 06/21/2020 This is a pleasant 75 years old male with multiple medical problems as above. Presents because he fell last Sunday stating he drank 2 beers and wine which is not usual for him to drink daily, later on that day he fell and there is a superficial horizontal wound on his right knee and right elbow. His right leg is swollen erythematous and reddish in color with 2-3 small blisters on the front of the upper leg, his right leg is warm and painful/tender. Ultrasound of the right leg is negative for DVT. On the presentation his INR was subtherapeutic at 1.3 and he is on Coumadin for his history of paroxysmal atrial fibrillation, although he has history of chronic systolic CHF with ejection fraction 30-35% and DVT status post bifemoral bypass surgery. Coumadin was placed on hold on admission for suspicion of hematoma however this is less likely given his subtherapeutic INR to have this became hematoma therefore cellulitis is suspected. I ordered wound culture, check forcalcitonin and C-reactive protein, start on cefazolin and consult infectious disease team Also his blood pressure was borderline line, with systolic BP is 90-100, his lisinopril and spironolactone were held and metoprolol dose was lowered from 150 down to 100 mg daily, renal ultrasound showing no hydronephrosis bilateral kidney stone. Also a bolus of normal saline of 500 mL provided and patient was started on normal saline at 50 mL per hour with nephrology team consult On checking on the evening patient was still hypotensive 81/52, another normal saline boluses of 250 is a provided and was increased to 75 mL/h and because of persistent hypotension Zyvox is added to cefazolin . Patient states that he is sure he got tested as he thinks it may be in this hospital. I called our pharmacist at the checked he did not receive tetanus in the hospital and 1 dose is ordered however patient denies any chest pain or dyspnea. He denies abdominal pain, no nausea, vomiting or weakness or headache 06/22/2020 Patient is awake and alert, sitting on chair, not moving much. His right leg redness is less severe today, also it significantly less warmth compared to yesterday. Improvement is noted after start patient on cefazolin. Zyvox was started last night but it can discontinue it today while keeping monitor the patient while on cefazolin. Infectious disease input is appreciated. Both PRO- calcitonin is elevated at 0.10 and C-reactive protein at 79.5. Also patient received 1 dose of tetanus yesterday. WOUND C.S IS PENDING His blood pressure is better today 125/70 and 93/56 is still somewhat tachycardic around 118-120. His creatinine improved to normal at 1.25 daily, also he has some drop of his sodium down to 129. And IV fluids were stopped. Patient placed on a fluid restriction by nephrology team recommendation. Lasix is on hold. Patient's CBC is a stable. Hemoglobin 8.8. His INR was subtherapeutic 1.3 on admission, restart his Coumadin 3 mg today compared to 2.5 at home as there is no evidence of hematoma and his right leg c ellulitis is improving. Monitor INR His lisinopril and spironolactone are still on hold. 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 No generalized weakness or weight loss. Abdomen: Patient denied nausea vomiting and diarrhea and abdominal pain. Cardiovascular: Patient denies any chest pain or short of breath no palpitations. Respiratory: patient denied any cough or sputum production. No shortness of breath Neurologic: Patient denied any numbness or tingling headache. Active Medications Generic Name Dose Route Start Last Admin Trade Name Sungq PRN Reason Stop Dose Admin Allopurinol 300 mg 06/21/20 09:00 06/22/20 08:50 Allopurinol 300 Mg Tab PO 300 mg DAILY JULITA Administration Ascorbic Acid 1,000 mg 06/21/20 09:00 06/22/20 08:49 Ascorbic Acid 500 Mg Tab PO 1,000 mg DAILY JULITA Administration Aspirin 81 mg 06/20/20 15:30 06/22/20 08:50 Aspirin 81 Mg PO 81 mg DAILY JULITA Administration Atorvastatin Calcium 40 mg 06/20/20 21:00 06/21/20 21:27 Atorvastatin 40 Mg Tab PO 40 mg HS JULITA Administration Budesonide/Formoterol Fumarate 2 puff 06/20/20 20:00 06/22/20 07:37 Symbicort 160-4.5 Mcg Inhaler INHALATION 2 puff RT-BID JULITA Administration Cholecalciferol 75 mcg 06/21/20 09:00 06/22/20 08:49 Cholecalciferol 25 Mcg (1000 Iu) Tablet PO 75 mcg DAILY JULITA Administration Cyanocobalamin 2,500 mcg 06/20/20 21:00 06/21/20 21:27 Cyanocobalamin 500 Mcg Tab PO 2,500 mcg HS JULITA Administration Cyclosporine 1 drops 06/20/20 21:00 06/22/20 08:51 Cyclosporine 0.05% Ophth 0.4 Ml Droperette BOTH EYES 1 drops BID JULITA Administration Docusate Sodium 100 mg 06/20/20 21:00 06/21/20 21:27 Docusate 100 Mg Cap PO 100 mg HS JULITA Administration Docusate Sodium 200 mg 06/21/20 09:00 06/22/20 08:50 Docusate 100 Mg Cap PO 200 mg DAILY JULITA Administration Ferrous Sulfate 325 mg 06/21/20 09:00 06/22/20 08:50 Ferrous Sulfate 325 Mg Tab PO 325 mg DAILY JULITA Administration Fluticasone Propionate 2 spray 06/21/20 09:00 06/22/20 08:51 Fluticasone 50mcg/[place] Nasal 16gm EA NOSTRIL 2 spray DAILY JULITA Administration Furosemide 40 mg 06/22/20 11:45 Furosemide 40 Mg Tab PO DAILY [facility] Heparin Sodium (Porcine) 5,000 unit 06/21/20 00:00 06/22/20 08:51 Heparin Sodium,Porcine 5,000 Unit/Ml 1 Ml Vial SQ 5,000 unit Q8HR JULITA Administration Cefazolin Sodium 2 gm/ Sodium 50 mls @ 100 mls/hr 06/21/20 13:30 06/22/20 05:14 Chloride IVPB 100 mls/hr Q8H JULITA Administration Ipratropium [place] 0.5 mg 06/20/20 20:00 06/22/20 10:59 Ipratropium 0.5 Mg/2.5 Ml Nebu INHALATION 0.5 mg RT-QID JULITA Administration Loratadine 10 mg 06/21/20 09:00 06/22/20 08:50 Loratadine 10 Mg Tab PO 10 mg DAILY JULITA Administration Magnesium Oxide 200 mg 06/20/20 21:00 06/22/20 08:50 Magnesium Oxide 400 Mg Tab PO 200 mg BID JULITA Administration Metoprolol Succinate 100 mg 06/22/20 09:00 06/22/20 08:50 Metoprolol Succinate (Er) 100 Mg Tab.Er.24h PO 100 mg DAILY JLUITA Administration Montelukast Sodium 10 mg 06/20/20 21:00 06/21/20 21:27 Montelukast 10 Mg Tab PO 10 mg HS JULITA Administration Morphine Sulfate 4 mg 06/20/20 12:45 06/22/20 11:10 Morphine Sulfate 4 Mg/Ml Syringe IV 4 mg Q4HR PRN Administration Severe Pain Naloxone HCl 0.2 mg 06/20/20 12:45 Naloxone 0.4 Mg/Ml 1 Ml Vial IV Q2M PRN Opioid Reversal Ondansetron HCl 4 mg 06/20/20 12:45 Ondansetron 4 Mg/2 Ml Vial IVP Q8HR PRN Nausea And Vomiting Pantoprazole Sodium 40 mg 06/20/20 16:00 06/22/20 08:49 Pantoprazole 40 Mg Tablet PO 40 mg DAILY JULITA Administration Tamsulosin HCl 0.4 mg 06/20/20 21:00 06/21/20 21:27 Tamsulosin 0.4 Mg Cap.Er.24h PO 0.4 mg HS JULITA Administration Thiamine HCl 100 mg 06/21/20 09:00 06/22/20 08:50 Thiamine 100 Mg Tab PO 100 mg DAILY JULITA Administration Trospium 20 mg 06/21/20 09:00 06/22/20 08:49 Trospium Chloride 20 Mg Tablet PO 20 mg DAILY JULITA Administration Objective - Vital Signs Vital signs: Vital Signs Temp 98.2 F 06/22/20 07:00 Pulse 116 H 06/22/20 11:09 Resp 18 06/22/20 07:00 BP 93/56 06/22/20 07:00 Pulse Ox 97 06/22/20 07:00 Intake & Output 06/21/20 06/22/20 06/22/20 18:59 06:59 18:59 Intake Total 1500 Output Total 850 Balance -850 1500 Intake: Intake, IV Titration 1500 Amount Linezolid 600 mg In 300 Dextrose/Water 1 300ml. bag @ 150 mls/hr IVPB BID [facility] Rx#:[id number] Sodium Chloride 0.9% 1, 750 000 ml @ 75 mls/hr IV . [id number] [facility] Rx#:[id number] Sodium Chloride 0.9% 250 250 ml @ 999 mls/hr IV .Q16M ONE Rx#:[id number] ceFAZolin 2 gm In Sodium 200 Chloride 0.9% 50 ml @ 100 mls/hr IVPB Q8H [facility] Rx#: [id number] Output: Urine 850 Other: Voiding Method Diaper Diaper Incontinent Incontinent # Voids 2 2 - Exam GENERAL: The patient is alert and oriented x3, not in any acute distress. Well developed, well nourished. HEENT: Pupils are round and equally reacting to light. EOMI. No scleral icterus. No conjunctival pallor. Normocephalic, atraumatic. No pharyngeal erythema. No thyromegaly. CARDIOVASCULAR: S1 and S2 present. No murmurs, rubs, or gallops. PULMONARY: Chest is clear to auscultation, no wheezing or crackles. ABDOMEN: Soft, nontender, nondistended, normoactive bowel sounds. No palpable organomegaly. MUSCULOSKELETAL: No joint swelling or deformity. -EXTREMITIES: No cyanosis, clubbing, or pedal edema. Right leg is swollen, painful and tender and red in color, there are 1 blister on the upper anterior right leg, also there is superficial horizontal wound on the right knee. Improving. Also there is some wound on the right elbow. Patient can move his right elbow and right leg normally NEUROLOGICAL: Gross neurological examination did not reveal any focal deficits. SKIN: No rashes. no petechiae. - Labs CBC & Chem 7: 06/22/20 04:12 06/22/20 04:12 Labs: Abnormal Lab Results - Last 24 Hours (Table) 06/21/20 06/21/20 06/22/20 Range/Units 18:07 18:07 04:12 RBC (4.40-5.60) X 10*6/uL Hgb (13.0-17.0) g/dL Hct (39.6-50.0) % MCV (80.0-97.0) fL MCH (27.0-32.0) pg RDW (11.5-14.5) % Sodium 129 L (137-145) mmol/L Chloride 95 L (98-107) mmol/L Carbon Dioxide 33 H (22-30) mmol/L BUN 35 H (9-20) mg/dL Glucose 104 H (74-99) mg/dL C-Reactive Protein 79.5 H (<10.0) mg/L Total Protein 5.7 L (6.3-8.2) g/dL Albumin 3.1 L (3.5-5.0) g/dL Procalcitonin 0.10 H (0.02-0.09) ng/mL 06/22/20 Range/Units 04:12 RBC 2.64 L (4.40-5.60) X 10*6/uL Hgb 8.8 L (13.0-17.0) g/dL Hct 27.1 L (39.6-50.0) % MCV 102.7 H (80.0-97.0) fL MCH 33.3 H (27.0-32.0) pg RDW 14.8 H (11.5-14.5) % Sodium (137-145) mmol/L Chloride (98-107) mmol/L Carbon Dioxide (22-30) mmol/L BUN (9-20) mg/dL Glucose (74-99) mg/dL C-Reactive Protein (<10.0) mg/L Total Protein (6.3-8.2) g/dL Albumin (3.5-5.0) g/dL Procalcitonin (0.02-0.09) ng/mL Microbiology - Last 24 Hours (Table) 06/21/20 16:45 Wound Culture - Preliminary Knee - Right 06/21/20 16:45 Anaerobic Culture - Preliminary Knee - Right Assessment and Plan Assessment: Right leg redness suspicious for cellulitis rather than hematoma which is felt less likely with INR is subtherapeutic on admission Fall secondary to alcohol intoxication 4-5 days prior to admission Right arm bruising and laceration. Paroxysmal atrial fibrillation on anticoagulation with Coumadin. INR 1.3 on admission History of aortic valve replacement COPD not in exacerbation Diabetes type 2 GERD Hearing disorder/deafness Hypertension Hyperlipidemia Obstructive sleep apnea on CPAP Peripheral vascular disease history of bilateral femoral bypass surgery Prior history of smoking and alcohol use disorder Plan: This is a pleasant 75 years old male who presents with Right leg pain and redness and swelling. Cellulitis is more likely, hematomas less likely. Start the patient on cefazolin, follow-up wound and blood culture. Follow-up recomme ndation with infectious disease team Monitor blood pressure and keep fluid restriction per ammonium hydroxide operator, hold lisinopril, spironolactone, lower the dose of metoprolol to 100 milligrams daily, discontinue IV fluids per ammonium hydroxide operator. [employer] team on the case. Labs and medication were reviewed.. Continue same treatment. Continue with symptomatic treatment. Resume home medication. Monitor lytes and vitals. DVT and GI prophylaxis. 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
[2020-06-22] MEDS: FUROSEMIDE 40 MG TAB PO SCH (13:05)
[2020-06-22 13:35] LABS: INR 1.3 (<1.2); Prothrombin Time 13.2 sec (9.0-12.0)
[2020-06-22] MEDS ORDERED: WARFARIN 3 MG TAB PO ONE (18:00)
[2020-06-22] MEDS: CYANOCOBALAMIN 500 MCG TAB PO SCH (19:50)
[2020-06-22] MEDS: MONTELUKAST 10 MG TAB PO SCH (19:51)
[2020-06-22] MEDS: TAMSULOSIN 0.4 MG CAP.ER.24H PO SCH (19:51)
[2020-06-22] MEDS: ATORVASTATIN 40 MG TAB PO SCH (19:52)
--- NOTE | 2020-06-23 01:21 | PN ---
PROGRESS NOTE DATE OF SERVICE: 06/22/2020 REASON FOR FOLLOWUP: Right lower extremity wound and cellulitis. INTERVAL HISTORY: The patient is currently afebrile. Patient is breathing comfortably. Denies having any chest pain, shortness of breath or cough. No abdominal pain. Overall pain to the right leg is controlled. Still has some swelling and redness, but no worsening. PHYSICAL EXAMINATION: Blood pressure is 110/76 with a pulse of 108, temperature of 97.7. He is 98% on 2 L cannula. General description is an elderly male up in the chair in no distress. Respiratory system: Unlabored breathing. Clear to auscultation anteriorly. HEART: S1, S2. Regular rate and rhythm. ABDOMEN: Soft, no tenderness. Right leg still has significant swelling and redness, blister, ulceration. No drainage. LABS: Hemoglobin 8.8 with white count of 6.31. BUN of 35, creatinine is 1.25. Cultures currently pending. DIAGNOSTIC IMPRESSION AND PLAN: Patient with right lower extremity wound with secondary cellulitis. Wound culture is pending. Patient is covered with cefazolin to continue and will monitor clinical course closely. MMODL / IJN: [id number] /
[2020-06-23] MEDS: MORPHINE SULFATE 4 MG/ML SYRINGE IV PRN (02:57)
[2020-06-23 05:37] LABS: INR 1.2 (<1.2); Prothrombin Time 12.4 sec (9.0-12.0)
[2020-06-23] MEDS: IPRATROPIUM 0.5 MG/2.5 ML NEBU INHALATION SCH ×4 (07:54→19:34)
[2020-06-23] MEDS: SYMBICORT 160-4.5 MCG INHALER INHALATION SCH ×2 (07:54→19:36)
[2020-06-23 09:12] LABS: Basophils # (A) 0.01 X 10*3/uL (0.00-0.10); Basophils % (A) 0.2 %; Eosinophils # (A) 0.12 X 10*3/uL (0.04-0.35); Eosinophils % (A) 2.3 %; HCT 27.5 % (39.6-50.0); HGB 8.7 g/dL (13.0-17.0); Lymphocytes # (A) 1.17 X 10*3/uL (0.90-5.00); Lymphocytes % (A) 22.1 %; MCHC 31.6 g/dL (32.0-37.0); MCV 104.2 fL (80.0-97.0); Mean Platelet Volume 10.5 fL (9.5-12.2); Monocytes # (A) 0.85 X 10*3/uL (0.20-1.00); Monocytes % (A) 16.1 %; Neutrophils # (A) 3.12 X 10*3/uL (1.80-7.70); Neutrophils % (A) 58.9 %; Platelet Count 182 X 10*3/uL (140-440); RBC 2.64 X 10*6/uL (4.40-5.60); RDW 14.9 % (11.5-14.5); WBC 5.29 X 10*3/uL (4.50-10.00)
[2020-06-23 09:14] LABS: African American GFR (CKD) 76.2 (60.0-200.0); Albumin 3.5 g/dL (3.80-4.90); Albumin/Globulin Ratio 1.84 (1.60-3.17); Anion Gap 6.9 mmol/L (4.00-12.00); BUN/Creat Ratio 27.27 Ratio (12.00-20.00); Carbon Dioxide 31.1 mmol/L (21.6-31.8); Globulin 1.9 g/dL (1.6-3.3); Magnesium 1.5 mg/dL (1.5-2.4); Non-African American GFR(CKD) 65.8 (60.0-200.0); Potassium 4.4 mmol/L (3.5-5.5); Total Bilirubin 1.1 mg/dL (0.3-1.2); Total Protein 5.4 g/dL (6.2-8.2)
[2020-06-23] MEDS: DOCUSATE 100 MG CAP PO SCH ×2 (09:41→22:13)
[2020-06-23] MEDS: HEPARIN SODIUM,PORCINE 5,000 UNIT/ML 1 ML VIAL SQ SCH ×3 (09:41→22:11)
[2020-06-23] MEDS: PANTOPRAZOLE 40 MG TABLET PO SCH (09:41)
[2020-06-23] MEDS: ASCORBIC ACID 500 MG TAB PO SCH (09:41)
[2020-06-23] MEDS: MAGNESIUM OXIDE 400 MG TAB PO SCH ×2 (09:42→22:11)
[2020-06-23] MEDS: FERROUS SULFATE 325 MG TAB PO SCH (09:44)
[2020-06-23] MEDS: allopurinoL 300 MG TAB PO SCH (09:44)
[2020-06-23] MEDS: LORATADINE 10 MG TAB PO SCH (09:44)
[2020-06-23] MEDS: CHOLECALCIFEROL 25 MCG (1000 IU) TABLET PO SCH (09:44)
[2020-06-23] MEDS: THIAMINE 100 MG TAB PO SCH (09:45)
[2020-06-23] MEDS: ASPIRIN 81 MG PO SCH (09:45)
[2020-06-23] MEDS: FLUTICASONE 50MCG/SPRAY NASAL 16GM EA NOSTRIL SCH (09:50)
[2020-06-23] MEDS: FUROSEMIDE 40 MG TAB PO SCH (10:10)
[2020-06-23] MEDS: METOPROLOL SUCCINATE (ER) 100 MG TAB.ER.24H PO SCH (10:10)
[2020-06-23] MEDS: TROSPIUM CHLORIDE 20 MG TABLET PO SCH (10:10)
[2020-06-23] MEDS: cycloSPORINE 0.05% OPHTH 0.4 ML DROPERETTE BOTH EYES SCH ×2 (10:11→22:13)
--- NOTE | 2020-06-23 11:29 | P.PN ---
Subjective Patient is seen in follow for acute kidney injury. Renal function continues to improve. Oral intake fair. Good urine output. No vomiting or diarrhea. Vital signs are stable. General: The patient appeared well nourished and normally developed. HEENT: Head exam is unremarkable. Neck is without jugular venous distension. LUNGS: Breath sounds decreased. HEART: Rate and Rhythm are regular. ABDOMEN: Soft, nontender. EXTREMITITES: 2+ edema right lower extremity. Erythematous. Trace edema left lower extremity. Objective - Vital Signs Vital signs: Vital Signs Temp 97.7 F 06/23/20 07:00 Pulse 64 06/23/20 09:53 Resp 16 06/23/20 07:00 BP 114/64 06/23/20 09:53 Pulse Ox 87 L 06/23/20 07:00 Intake & Output 06/22/20 06/23/20 06/23/20 18:59 06:59 18:59 Intake Total 440 180 Output Total 1 2 Balance -1 438 180 Intake: Intake, IV Titration 100 Amount ceFAZolin 2 gm In Sodium 100 Chloride 0.9% 50 ml @ 100 mls/hr IVPB Q8H [facility] Rx#: [id number] Oral 340 180 Output: Urine 1 2 Other: Voiding Method Diaper Diaper Incontinent Incontinent # Voids 1 - Labs CBC & Chem 7: 06/23/20 04:23 06/23/20 04:23 Labs: Abnormal Lab Results - Last 24 Hours (Table) 06/22/20 06/23/20 06/23/20 Range/Units 13:12 04:23 04:23 RBC 2.64 L (4.40-5.60) X 10*6/uL Hgb 8.7 L (13.0-17.0) g/dL Hct 27.5 L (39.6-50.0) % MCV 104.2 H (80.0-97.0) fL MCH 33.0 H (27.0-32.0) pg MCHC 31.6 L (32.0-37.0) g/dL RDW 14.9 H (11.5-14.5) % Absolute Nucleated RBC 0.02 H (0.00-0.00) X 10*3/uL NRBC/100 WBC Diff 0.4 H (0.0-0.0) /100 WBCS PT 13.2 H (9.0-12.0) sec INR 1.3 H (<1.2) BUN 30.0 H (9.0-27.0) mg/dL BUN/Creatinine Ratio 27.27 H (12.00-20.00) Ratio Glucose 128 H (70-110) mg/dL Total Protein 5.4 L (6.2-8.2) g/dL Albumin 3.50 L (3.80-4.90) g/dL 06/23/20 Range/Units 04:23 RBC (4.40-5.60) X 10*6/uL Hgb (13.0-17.0) g/dL Hct (39.6-50.0) % MCV (80.0-97.0) fL MCH (27.0-32.0) pg MCHC (32.0-37.0) g/dL RDW (11.5-14.5) % Absolute Nucleated RBC (0.00-0.00) X 10*3/uL NRBC/100 WBC Diff (0.0-0.0) /100 WBCS PT 12.4 H (9.0-12.0) sec INR 1.2 H (<1.2) BUN (9.0-27.0) mg/dL BUN/Creatinine Ratio (12.00-20.00) Ratio Glucose (70-110) mg/dL Total Protein (6.2-8.2) g/dL Albumin (3.80-4.90) g/dL Microbiology - Last 24 Hours (Table) 06/21/20 22:02 Blood Culture - Preliminary Blood No Growth after 24 hours 06/21/20 16:45 Gram Stain - Preliminary Knee - Right Wound Culture - Preliminary Assessment and Plan Plan: Assessment: 1. Acute kidney injury secondary to hypotension and diuresis. Baseline creatinine near 1 and peaked at 1.8 this admission - 1.1 today. UA benign. No hydronephrosis noted on kidney ultrasound. 2. Status post fall with right lower extremity injury/cellulitis. Orthopedic surgery and ID following. 3. Hyperkalemia secondary to acute kidney injury, potassium supplementation, lisinopril and spironolactone. Resolved. 4. Chronic systolic CHF with ejection fraction of 30-35%. 5. History of TAVR. 6. Hyponatremia. Hypervolemic. Better. Plan: Continue to hold lisinopril, potassium supplementation and spironolactone. Maintain Lasix 40 mg orally once daily. Off IV fluids. Continue to monitor renal function and urine output. Avoid nephrotoxins. 1500 mL fluid restriction.
--- NOTE | 2020-06-23 11:59 | P.PN ---
Progress Note - Text Progress Note Date: 06/23/20 Orthopedics: History of present illness: Patient is a very pleasant 75-year-old male who is again again seen and examined at bedside for follow-up evaluation of his right lower extremity. He sustained a fall approximately 5 days ago falling on to his left knee. He was into the emergency department for further evaluation. He had a laceration at that time. Wound was closed with glue and Steri-Strips. Secondary to the patient's thin skin decision was made not to repair with sutures. Patient states he was discharged from the emergency department. His right lower extremity pain and swelling have been worsening and he presented back to the emergency department and was admitted. Since being seen and examined at the bedside yesterday, he has not had any significant change in his symptoms. They have not improved or worsened. He has significant pain and swelling from the knee down to the foot. He has significant ecchymosis with hematoma around the right escobar and calf and extending up to the posterior thigh. He has a blister over the escobar as well and has remained closed. The Steri-Strips remain intact over the wound out active drainage. He she needs to have adequate range of motion with dorsiflexion and plantar flexion right lower extremity. He has swelling in the left lower extremity as well but to a lesser degree. He did sustain a fall out of the chair on Sunday when trying to get back to the bed. He denies any injury that time. He states he was unstable when he fell. He does admit to a mechanical valve and is on Coumadin. He states he significantly bruises easily and frequent. He chronically has bruising in the bilateral upper extremities. Patient's past medical history includes atrial fibrillation, coronary artery disease, COPD, diabetes mellitus, hyperlipidemia, hypertension tension, prostate disorder, sleep apnea, and vascular disorder. Patient states at bedside he did just eat. Patient continues to be seen and examined by medicine. Overall he does not feel any significant improvement or worsening since his admission. Physical Exam: Patient is awake, alert, and oriented 3 Vital signs stable Good chest excursion with deep inspiration and expiration Examination of the right lower extremity shows large hematoma with ecchymosis at the right knee extending all the way to the ankle anteriorly and laterally and over the calf Hematoma and ecchymosis also extends up the right posterior distal thigh Evidence of 1 large blister at the right anterior lateral superior portion of the lower extremity below the knee Steri-Strips remain intact over the wound site at the anterior right knee Wound site at the right knee is currently dry with some scab formation without active drainage Significant pain with palpation over the right knee and calf 2+ pitting edema over the right lower extremity and right foot 1+ pitting edema over the left lower extremity and foot some trophic skin changes of the left lower extremity Patient is able to perform some dorsiflexion and plantarflexion of the right lower extremity Patient is able to wiggle toes of the right lower extremity Neurovascularly intact right lower extremity Significant bruising over the bilateral upper extremities Current dressing intact over the right upper forearm which is clean and dry No pain with palpation over the right calf Pertinent studies: X-rays of the right knee taken on 06/16/2020: No evidence of fracture or subluxation of the right knee; report states high-grade stenosis of the right SFA is suspected based on calcium load on the vessel Assessment: Large right lower extremity hematoma Bilateral lower extremity swelling greater on the right than the left Right lower extremity pain Inability ambulate due to right lower extremity pain History of fall Current Coumadin use History of mechanical valve Diabetes mellitus Hyperlipidemia Hypertension Atrial fibrillation Coronary artery disease COPD Prostate disorder Sleep apnea Vascular disorder Plan: 1. We will currently plan to continue with our plan as previously set forth. Patient has again been discussed in detail with Dr. Jefry Mulligan. Patient does have significant swelling with a large hematoma and ecchymosis over the right lower extremity below the knee and at the posterior calf and distal thigh. He has edema of the bilateral lower extremities greater on the right than the left as well. He does bruise easily given his Coumadin use. He has a blister on the anterior lateral superior portion of his right escobar that has remained closed. He has difficulty with active range of motion including dorsiflexion and plantar flexion but has had some improvement with dorsiflexion and plantarflexion. He is able to wiggle his toes. He is neurovascularly intact for the right lower extremity. He does have increased pain with palpation over the right lower extremity from the knee extending to the ankle anteriorly. He does not have any pain with palpation over the right calf. Reviewing of x-ray imaging taken on 06/16/2020 does not show any evidence of fracture dislocation of his right knee. The wound site over his right knee appears to be healing appropriately. Even with the right lower extremity swelling, his compartments continue to be soft. We feel there is some superficial and subcutaneous hematoma but do not currently believe that it involves a significant portion of the muscle. He is not having neurological change in his right lower extremity and do not feel his muscle is in jeopardy at this point. At this time we will currently plan to continue with conservative treatment. Patient could benefit from elevation and warm compresses which he again states have not been done yet. We will plan for that today. We are not currently planning for acute surgical intervention is right lower extremity. Patient states at the bedside he would like to try to avoid surgical intervention of the right lower extremity unless it becomes medically necessary. We'll continue to follow patient closely. Case management is planning to see the patient to discuss options at the time of discharge including discharged to a rehabilitation facility or home with home health services. Patient will continue to remain in the hospital for further treatment and evaluation until at least tomorrow, 06/23/2020. Following discharge, the patient may follow-up with Rock Salguero PA-C or Dr. Jefry Mulligan at [facility] in 1 week following discharge. 2. Patient will continue be seen and examined by medicine for his other medical diagnoses
--- NOTE | 2020-06-23 14:26 | P.PN ---
Subjective Patient is a 75-year-old male with a known history of atrial fibrillation and valvular heart disease, hypertension, diabetes type 2, osteoarthritis, cardiomyopathy, peripheral vascular disease with bifemoral bypass surgery, residual smoking and heavy alcohol use and obstructive sleep apnea on BiPAP at home and other multiple medical problems with history of aortic valve replacement presents to ER due to worsening right lower extremity pain and knee pain. Patient states that he fell about 4 days ago and injuring his right knee and also laceration on the right forearm. Patient developed bruising over the right lower extremities. Patient states that he was intoxicated and lost his balance. Patient presents to ER due to pain. Patient is unable to bend his right lower extremity and flex his right knee. No numbness or tingling sensation. Denies any fever or chills. No cough or sputum production. No chest pain or shortness breath. No palpitations. No dysuria or hematuria. Laboratory data showed WBC 7.8, hemoglobin 10.5 and MCV 102.8 INR 1.3 Sodium 137 potassium 4.4 chloride 97 bicarb 34 BUN 25 and creatinine 0.97 Bilirubin level is 1.5 and CK 34 and coronavirus PCR not detected Venous duplex of the right lower extremity showed no signs of DVT in the right leg. Subjective: 06/21/2020 This is a pleasant 75 years old male with multiple medical problems as above. Presents because he fell last Sunday stating he drank 2 beers and wine which is not usual for him to drink daily, later on that day he fell and there is a superficial horizontal wound on his right knee and right elbow. His right leg is swollen erythematous and reddish in color with 2-3 small blisters on the front of the upper leg, his right leg is warm and painful/tender. Ultrasound of the right leg is negative for DVT. On the presentation his INR was subtherapeutic at 1.3 and he is on Coumadin for his history of paroxysmal atrial fibrillation, although he has history of chronic systolic CHF with ejection fraction 30-35% and DVT status post bifemoral bypass surgery. Coumadin was placed on hold on admission for suspicion of hematoma however this is less likely given his subtherapeutic INR to have this became hematoma therefore cellulitis is suspected. I ordered wound culture, check forcalcitonin and C-reactive protein, start on cefazolin and consult infectious disease team Also his blood pressure was borderline line, with systolic BP is 90-100, his lisinopril and spironolactone were held and metoprolol dose was lowered from 150 down to 100 mg daily, renal ultrasound showing no hydronephrosis bilateral kidney stone. Also a bolus of normal saline of 500 mL provided and patient was started on normal saline at 50 mL per hour with nephrology team consult On checking on the evening patient was still hypotensive 81/52, another normal saline boluses of 250 is a provided and was increased to 75 mL/h and because of persistent hypotension Zyvox is added to cefazolin . Patient states that he is sure he got tested as he thinks it may be in this hospital. I called our pharmacist at the checked he did not receive tetanus in the hospital and 1 dose is ordered however patient denies any chest pain or dyspnea. He denies abdominal pain, no nausea, vomiting or weakness or headache 06/22/2020 Patient is awake and alert, sitting on chair, not moving much. His right leg redness is less severe today, also it significantly less warmth compared to yesterday. Improvement is noted after start patient on cefazolin. Zyvox was started last night but it can discontinue it today while keeping monitor the patient while on cefazolin. Infectious disease input is appreciated. Both PRO- calcitonin is elevated at 0.10 and C-reactive protein at 79.5. Also patient received 1 dose of tetanus yesterday. WOUND C.S IS PENDING His blood pressure is better today 125/70 and 93/56 is still somewhat tachycardic around 118-120. His creatinine improved to normal at 1.25 daily, also he has some drop of his sodium down to 129. And IV fluids were stopped. Patient placed on a fluid restriction by nephrology team recommendation. Lasix is on hold. Patient's CBC is a stable. Hemoglobin 8.8. His INR was subtherapeutic 1.3 on admission, restart his Coumadin 3 mg today compared to 2.5 at home as there is no evidence of hematoma and his right leg c ellulitis is improving. Monitor INR His lisinopril and spironolactone are still on hold. Metoprolol start on low- dose 100 mg daily Physical therapy recommended ECF for rehab social media campaign manager on the case 06/23/2020 Patient right leg cellulitis is improving with less redness, he can move his toes today compared to yesterday on the are not painful however he still have pain in his right leg about 6/10 which is similar to yesterday. He is still with bilateral leg swelling. Mostly related to his HF. The left foot was STARTED ON LASIX 40 MG DAILY COMPARED TO 120 MG AT HOME. HIS CREATININE IMPROVED BACK TO NORMAL TODAY AT 1.1 area so give normal at 136 However his blood pressure in the low side 87/59 today, we will give 1 dose of midodrine and monitor blood pressure and decreased metoprolol 100 mg to 50 mg daily. Hold the lisinopril and spironolactone. Patient remains on cefazolin, with cultures pending. Objective - Vital Signs Vital signs: Vital Signs Temp 97.7 F 06/23/20 07:00 Pulse 96 06/23/20 11:42 Resp 16 06/23/20 07:00 BP 114/64 06/23/20 09:53 Pulse Ox 87 L 06/23/20 07:00 Intake & Output 06/22/20 06/23/20 06/23/20 18:59 06:59 18:59 Intake Total 440 180 Output Total 1 2 Balance -1 438 180 Intake: Intake, IV Titration 100 Amount ceFAZolin 2 gm In Sodium 100 Chloride 0.9% 50 ml @ 100 mls/hr IVPB Q8H [facility] Rx#: [id number] Oral 340 180 Output: Urine 1 2 Other: Voiding Method Diaper Diaper Incontinent Incontinent # Voids 1 - Exam GENERAL: The patient is alert and oriented x3, not in any acute distress. Well developed, well nourished. HEENT: Pupils are round and equally reacting to light. EOMI. No scleral icterus. No conjunctival pallor. Normocephalic, atraumatic. No pharyngeal erythema. No thyromegaly. CARDIOVASCULAR: S1 and S2 present. No murmurs, rubs, or gallops. PULMONARY: Chest is clear to auscultation, no wheezing or crackles. ABDOMEN: Soft, nontender, nondistended, normoactive bowel sounds. No palpable organomegaly. MUSCULOSKELETAL: No joint swelling or deformity. -EXTREMITIES: No cyanosis, clubbing, or pedal edema. Right leg is swollen, painful and tender and red in color, there are 1 blister on the upper anterior right leg, also there is superficial horizontal wound on the right knee. Improving. Also there is some wound on the right elbow. Patient can move his right elbow and right leg normally NEUROLOGICAL: Gross neurological examination did not reveal any focal deficits. SKIN: No rashes. no petechiae. - Labs CBC & Chem 7: 06/23/20 04:23 06/23/20 04:23 Labs: Abnormal Lab Results - Last 24 Hours (Table) 06/23/20 06/23/20 06/23/20 Range/Units 04:23 04:23 04:23 RBC 2.64 L (4.40-5.60) X 10*6/uL Hgb 8.7 L (13.0-17.0) g/dL Hct 27.5 L (39.6-50.0) % MCV 104.2 H (80.0-97.0) fL MCH 33.0 H (27.0-32.0) pg MCHC 31.6 L (32.0-37.0) g/dL RDW 14.9 H (11.5-14.5) % Absolute Nucleated RBC 0.02 H (0.00-0.00) X 10*3/uL NRBC/100 WBC Diff 0.4 H (0.0-0.0) /100 WBCS PT 12.4 H (9.0-12.0) sec INR 1.2 H (<1.2) BUN 30.0 H (9.0-27.0) mg/dL BUN/Creatinine Ratio 27.27 H (12.00-20.00) Ratio Glucose 128 H (70-110) mg/dL Total Protein 5.4 L (6.2-8.2) g/dL Albumin 3.50 L (3.80-4.90) g/dL Microbiology - Last 24 Hours (Table) 06/21/20 22:02 Blood Culture - Preliminary Blood No Growth after 24 hours 06/21/20 16:45 Gram Stain - Preliminary Knee - Right Wound Culture - Preliminary Assessment and Plan Assessment: Right leg redness suspicious for cellulitis rather than hematoma which is felt less likely with INR is subtherapeutic on admission Fall secondary to alcohol intoxication 4-5 days prior to admission Right arm bruising and laceration. Paroxysmal atrial fibrillation on anticoagulation with Coumadin. INR 1.3 on admission History of aortic valve replacement COPD not in exacerbation Diabetes type 2 GERD Hearing disorder/deafness Hypertension Hyperlipidemia Obstructive sleep apnea on CPAP Peripheral vascular disease history of bilateral femoral bypass surgery Prior history of smoking and alcohol use disorder Plan: This is a pleasant 75 years old male who presents with Right leg pain and redness and swelling. Cellulitis is more likely, hematomas less likely. Start the patient on cefazolin, follow-up wound and blood culture. Follow-up recommendation with infectious disease team Monitor blood pressure and keep fluid restriction per food service cashier, hold lisinopril, spironolactone, lower the dose of metoprolol to 50 milligrams daily. Manager Publishing team on the case. Labs and medication were reviewed.. Continue same treatment. Continue with symptomatic treatment. Resume home medication. Monitor lytes and vitals. DVT and GI prophylaxis. Further recommendations as per clinical course of the patient DVT prophylaxis: Subcutaneous heparin, restart Coumadin, keep monitoring closely for any worsening hematoma or bleeding GI Prophylaxis: Pepcid PT/OT: recommended ECF for rehab social media campaign manager on the case Prognosis is guarded
[2020-06-23] MEDS ORDERED: MIDODRINE 5 MG TAB PO ONE (17:30)
[2020-06-23] MEDS ORDERED: WARFARIN 2 MG TAB PO ONE (18:00)
--- NOTE | 2020-06-23 18:20 | PN ---
PROGRESS NOTE DATE OF SERVICE: 06/23/2020 REASON FOR FOLLOWUP: Right lower extremity wound and cellulitis. INTERVAL HISTORY: The patient is currently afebrile. The patient is breathing comfortably. Denies having any chest pain or shortness of breath or cough. No abdominal pain. Overall pain and discomfort to the right leg has slightly decreased. PHYSICAL EXAMINATION: Blood pressure 114/64, pulse of 106, temperature 97.8. He is 99% on room air. General description is an elderly male up in the chair in no distress. RESPIRATORY SYSTEM: Unlabored breathing. Clear to auscultation anteriorly. HEART: S1, S2. Regular rate and rhythm. ABDOMEN: Soft. No tenderness. Right leg wound with blister formation and redness slightly decreased. LABS: Hemoglobin 8.6, white count of 5.29, BUN of 30, creatinine 1.1. DIAGNOSTIC IMPRESSION AND PLAN: Patient with right lower extremity wound with secondary cellulitis. Patient's local wound care was switched over to Aquacel Silver dressing with 4 x 4 on the blister and Sulaiman wrap to keep the swelling down. Continue with cefazolin and monitor his clinical course closely. MMODL / IJN: [id number] /
[2020-06-23] MEDS: MONTELUKAST 10 MG TAB PO SCH (22:11)
[2020-06-23] MEDS: TAMSULOSIN 0.4 MG CAP.ER.24H PO SCH (22:12)
[2020-06-23] MEDS: CYANOCOBALAMIN 500 MCG TAB PO SCH (22:12)
[2020-06-23] MEDS: ATORVASTATIN 40 MG TAB PO SCH (22:13)
[2020-06-24 02:51] VITALS: RESP 16
[2020-06-24] MEDS: IPRATROPIUM 0.5 MG/2.5 ML NEBU INHALATION SCH ×4 (08:09→21:04)
[2020-06-24] MEDS: SYMBICORT 160-4.5 MCG INHALER INHALATION SCH ×2 (08:09→21:05)
[2020-06-24] MEDS: ASCORBIC ACID 500 MG TAB PO SCH (08:45)
[2020-06-24] MEDS: HEPARIN SODIUM,PORCINE 5,000 UNIT/ML 1 ML VIAL SQ SCH ×3 (08:45→22:08)
[2020-06-24] MEDS: DOCUSATE 100 MG CAP PO SCH ×2 (08:45→20:36)
[2020-06-24] MEDS: FERROUS SULFATE 325 MG TAB PO SCH (08:45)
[2020-06-24] MEDS: ASPIRIN 81 MG PO SCH (08:45)
[2020-06-24] MEDS: FUROSEMIDE 40 MG TAB PO SCH (08:45)
[2020-06-24] MEDS: PANTOPRAZOLE 40 MG TABLET PO SCH (08:45)
[2020-06-24] MEDS: MAGNESIUM OXIDE 400 MG TAB PO SCH ×2 (08:46→20:35)
[2020-06-24] MEDS: CHOLECALCIFEROL 25 MCG (1000 IU) TABLET PO SCH (08:46)
[2020-06-24] MEDS: allopurinoL 300 MG TAB PO SCH (08:47)
[2020-06-24] MEDS: LORATADINE 10 MG TAB PO SCH (08:47)
[2020-06-24] MEDS: THIAMINE 100 MG TAB PO SCH (08:47)
[2020-06-24] MEDS: TROSPIUM CHLORIDE 20 MG TABLET PO SCH (08:48)
[2020-06-24] MEDS: cycloSPORINE 0.05% OPHTH 0.4 ML DROPERETTE BOTH EYES SCH ×2 (08:48→20:34)
[2020-06-24] MEDS: FLUTICASONE 50MCG/SPRAY NASAL 16GM EA NOSTRIL SCH (08:48)
[2020-06-24] MEDS: MORPHINE SULFATE 4 MG/ML SYRINGE IV PRN ×2 (08:52→14:48)
[2020-06-24] MEDS ORDERED: METOPROLOL SUCCINATE (ER) 50 MG TAB.ER.24H PO SCH (09:00)
[2020-06-24 09:31] LABS: Basophils # (A) 0.01 X 10*3/uL (0.00-0.10); Basophils % (A) 0.2 %; Eosinophils # (A) 0.12 X 10*3/uL (0.04-0.35); Eosinophils % (A) 2.3 %; HCT 25.8 % (39.6-50.0); HGB 8.4 g/dL (13.0-17.0); Lymphocytes # (A) 0.84 X 10*3/uL (0.90-5.00); Lymphocytes % (A) 16.3 %; MCH 33.2 pg (27.0-32.0); MCHC 32.6 g/dL (32.0-37.0); Mean Platelet Volume 10.5 fL (9.5-12.2); Monocytes # (A) 0.77 X 10*3/uL (0.20-1.00); Platelet Count 184 X 10*3/uL (140-440); RBC 2.53 X 10*6/uL (4.40-5.60); RDW 14.6 % (11.5-14.5); WBC 5.15 X 10*3/uL (4.50-10.00)
[2020-06-24 09:51] LABS: Anion Gap 5.7 mmol/L (4.00-12.00); Calcium 8.9 mg/dL (8.7-10.3); Carbon Dioxide 33.3 mmol/L (21.6-31.8)
--- NOTE | 2020-06-24 10:30 | P.PN ---
Progress Note - Text Progress Note Date: 06/24/20 The patient is seen and examined. He has been up and walking around with therapy. He says his symptoms are improving. He is matrix drier tender and sensitive over his right lower leg. He feels he is moving better and his ankle foot and toes and knee. He's afebrile. The blisters still present but does not appear purulent. The extensive hematoma still intact. He has swelling at the area and it is somewhat tense but still soft. He is able to dorsiflex plantarflex his ankle foot and toes. He is able flex his knee. There is no obvious subcutaneous fluid collection or abscess. Assessment and plan Extensive hematoma right lower extremity with some blistering. There is some concern for possible development of cellulitis and infectious diseases on board and helping management with that. I do not see an obvious role for surgical intervention for evacuation of hematoma. His compartments appear to be soft and his circulation is adequate. It is difficult to say that surgically treating the hematoma would offer him significant benefit and I would plan for continued conservative care.
--- NOTE | 2020-06-24 11:15 | P.PN ---
Subjective Patient is seen in follow for acute kidney injury. Renal function back to baseline. Oral intake fair. Good urine output. No vomiting or diarrhea. No changes overnight. Vital signs are stable. General: The patient appeared well nourished and normally developed. HEENT: Head exam is unremarkable. Neck is without jugular venous distension. LUNGS: Breath sounds decreased. HEART: Rate and Rhythm are regular. ABDOMEN: Soft, nontender. EXTREMITITES: 2+ edema right lower extremity. Erythematous. Trace edema left lower extremity. Objective - Vital Signs Vital signs: Vital Signs Temp 97.8 F 06/24/20 07:15 Pulse 125 H 06/24/20 08:20 Resp 16 06/24/20 07:15 BP 116/68 06/24/20 07:15 Pulse Ox 97 06/24/20 08:10 Intake & Output 06/23/20 06/24/20 06/24/20 18:59 06:59 18:59 Intake Total 360 Output Total 1 Balance 360 -1 Intake: Oral 360 Output: Urine 1 Other: Voiding Method Diaper Diaper Incontinent Incontinent # Voids 1 2 1 - Labs CBC & Chem 7: 06/24/20 05:46 06/24/20 05:46 Labs: Abnormal Lab Results - Last 24 Hours (Table) 06/24/20 06/24/20 Range/Units 05:46 05:46 RBC 2.53 L (4.40-5.60) X 10*6/uL Hgb 8.4 L (13.0-17.0) g/dL Hct 25.8 L (39.6-50.0) % MCV 102.0 H (80.0-97.0) fL MCH 33.2 H (27.0-32.0) pg RDW 14.6 H (11.5-14.5) % Lymphocytes # 0.84 L (0.90-5.00) X 10*3/uL Carbon Dioxide 33.3 H (21.6-31.8) mmol/L BUN/Creatinine Ratio 30.00 H (12.00-20.00) Ratio Microbiology - Last 24 Hours (Table) 06/21/20 22:02 Blood Culture - Preliminary Blood No Growth after 48 hours 06/21/20 16:45 Anaerobic Culture - Preliminary Knee - Right 06/21/20 16:45 Gram Stain - Final Knee - Right Wound Culture - Final Assessment and Plan Plan: Assessment: 1. Acute kidney injury secondary to hypotension and diuresis. Baseline creatinine near 1 and peaked at 1.8 this admission - 0.8 today. UA benign. No hydronephrosis noted on kidney ultrasound. 2. Status post fall with right lower extremity injury/cellulitis. Orthopedic surgery and ID following. 3. Hyperkalemia secondary to acute kidney injury, potassium supplementation, lisinopril and spironolactone. Resolved. 4. Chronic systolic CHF with ejection fraction of 30-35%. 5. History of TAVR. 6. Hyponatremia. Hypervolemic. Better. Plan: Continue to hold lisinopril, potassium supplementation and spironolactone. Maintain Lasix 40 mg orally once daily. Off IV fluids. Continue to monitor renal function and urine output. Avoid nephrotoxins. 1500 mL fluid restriction. No changes from nephrology standpoint.
--- NOTE | 2020-06-24 11:24 | P.PN ---
Subjective Patient is a 75-year-old male with a known history of atrial fibrillation and valvular heart disease, hypertension, diabetes type 2, osteoarthritis, cardiomyopathy, peripheral vascular disease with bifemoral bypass surgery, residual smoking and heavy alcohol use and obstructive sleep apnea on BiPAP at home and other multiple medical problems with history of aortic valve replacement presents to ER due to worsening right lower extremity pain and knee pain. Patient states that he fell about 4 days ago and injuring his right knee and also laceration on the right forearm. Patient developed bruising over the right lower extremities. Patient states that he was intoxicated and lost his balance. Patient presents to ER due to pain. Patient is unable to bend his right lower extremity and flex his right knee. No numbness or tingling sensation. Denies any fever or chills. No cough or sputum production. No chest pain or shortness breath. No palpitations. No dysuria or hematuria. Laboratory data showed WBC 7.8, hemoglobin 10.5 and MCV 102.8 INR 1.3 Sodium 137 potassium 4.4 chloride 97 bicarb 34 BUN 25 and creatinine 0.97 Bilirubin level is 1.5 and CK 34 and coronavirus PCR not detected Venous duplex of the right lower extremity showed no signs of DVT in the right leg. Subjective: 06/21/2020 This is a pleasant 75 years old male with multiple medical problems as above. Presents because he fell last Sunday stating he drank 2 beers and wine which is not usual for him to drink daily, later on that day he fell and there is a superficial horizontal wound on his right knee and right elbow. His right leg is swollen erythematous and reddish in color with 2-3 small blisters on the front of the upper leg, his right leg is warm and painful/tender. Ultrasound of the right leg is negative for DVT. On the presentation his INR was subtherapeutic at 1.3 and he is on Coumadin for his history of paroxysmal atrial fibrillation, although he has history of chronic systolic CHF with ejection fraction 30-35% and DVT status post bifemoral bypass surgery. Coumadin was placed on hold on admission for suspicion of hematoma however this is less likely given his subtherapeutic INR to have this became hematoma therefore cellulitis is suspected. I ordered wound culture, check forcalcitonin and C-reactive protein, start on cefazolin and consult infectious disease team Also his blood pressure was borderline line, with systolic BP is 90-100, his lisinopril and spironolactone were held and metoprolol dose was lowered from 150 down to 100 mg daily, renal ultrasound showing no hydronephrosis bilateral kidney stone. Also a bolus of normal saline of 500 mL provided and patient was started on normal saline at 50 mL per hour with nephrology team consult On checking on the evening patient was still hypotensive 81/52, another normal saline boluses of 250 is a provided and was increased to 75 mL/h and because of persistent hypotension Zyvox is added to cefazolin . Patient states that he is sure he got tested as he thinks it may be in this hospital. I called our pharmacist at the checked he did not receive tetanus in the hospital and 1 dose is ordered however patient denies any chest pain or dyspnea. He denies abdominal pain, no nausea, vomiting or weakness or headache 06/22/2020 Patient is awake and alert, sitting on chair, not moving much. His right leg redness is less severe today, also it significantly less warmth compared to yesterday. Improvement is noted after start patient on cefazolin. Zyvox was started last night but it can discontinue it today while keeping monitor the patient while on cefazolin. Infectious disease input is appreciated. Both PRO- calcitonin is elevated at 0.10 and C-reactive protein at 79.5. Also patient received 1 dose of tetanus yesterday. WOUND C.S IS PENDING His blood pressure is better today 125/70 and 93/56 is still somewhat tachycardic around 118-120. His creatinine improved to normal at 1.25 daily, also he has some drop of his sodium down to 129. And IV fluids were stopped. Patient placed on a fluid restriction by nephrology team recommendation. Lasix is on hold. Patient's CBC is a stable. Hemoglobin 8.8. His INR was subtherapeutic 1.3 on admission, restart his Coumadin 3 mg today compared to 2.5 at home as there is no evidence of hematoma and his right leg c ellulitis is improving. Monitor INR His lisinopril and spironolactone are still on hold. Metoprolol start on low- dose 100 mg daily Physical therapy recommended ECF for rehab medical social worker on the case 06/23/2020 Patient right leg cellulitis is improving with less redness, he can move his toes today compared to yesterday on the are not painful however he still have pain in his right leg about 6/10 which is similar to yesterday. He is still with bilateral leg swelling. Mostly related to his HF. The left foot was STARTED ON LASIX 40 MG DAILY COMPARED TO 120 MG AT HOME. HIS CREATININE IMPROVED BACK TO NORMAL TODAY AT 1.1 area so give normal at 136 However his blood pressure in the low side 87/59 today, we will give 1 dose of midodrine and monitor blood pressure and decreased metoprolol 100 mg to 50 mg daily. Hold the lisinopril and spironolactone. Patient remains on cefazolin, with cultures pending. 06/24/2020 Patient with a right leg cellulitis secondary to a fall and right knee wound about 4-5 days prior to coming to the hospital. Infection is improving slowly on cefazolin, infectious disease team on the case. Hematoma felt less likely as INR was subtherapeutic upon admission. However, didn't is a still on hold. We will discuss with orthopedic team about when to restart him on Coumadin. We'll culture showing no growth so far as well as blood culture. Final results are pending. Is a slightly tachycardic, yesterday he was a little bit hypertensive so his metoprolol was lowered from 100 mg down to 50 mg daily which might explain his rebound tachycardia over top of his infection. At home he was taking metoprolol 150 mg daily. Also we held his lisinopril and spironolactone because of low blood pressure and kidney injury. Today his blood pressure is 116/68, we will increase his metoprolol to 25 mg tomorrow labs including CBC and BMP are stable. He is currently on cefazolin. Objective - Vital Signs Vital signs: Vital Signs Temp 97.8 F 06/24/20 07:15 Pulse 125 H 06/24/20 08:20 Resp 16 06/24/20 07:15 BP 116/68 06/24/20 07:15 Pulse Ox 97 06/24/20 08:10 Intake & Output 06/23/20 06/24/20 06/24/20 18:59 06:59 18:59 Intake Total 360 Output Total 1 Balance 360 -1 Intake: Oral 360 Output: Urine 1 Other: Voiding Method Diaper Diaper Incontinent Incontinent # Voids 1 2 1 - Exam GENERAL: The patient is alert and oriented x3, not in any acute distress. Well developed, well nourished. HEENT: Pupils are round and equally reacting to light. EOMI. No scleral icterus. No conjunctival pallor. Normocephalic, atraumatic. No pharyngeal erythema. No thyromegaly. CARDIOVASCULAR: S1 and S2 present. No murmurs, rubs, or gallops. PULMONARY: Chest is clear to auscultation, no wheezing or crackles. ABDOMEN: Soft, nontender, nondistended, normoactive bowel sounds. No palpable organomegaly. MUSCULOSKELETAL: No joint swelling or deformity. -EXTREMITIES: No cyanosis, clubbing, or pedal edema. Right leg is swollen, painful and tender and red in color, there are 1 blister on the upper anterior right leg, also there is superficial horizontal wound on the right knee. Improving. Also there is some wound on the right elbow. Patient can move his right elbow and right leg normally NEUROLOGICAL: Gross neurological examination did not reveal any focal deficits. SKIN: No rashes. no petechiae. - Labs CBC & Chem 7: 06/24/20 05:46 06/24/20 05:46 Labs: Abnormal Lab Results - Last 24 Hours (Table) 06/24/20 06/24/20 Range/Units 05:46 05:46 RBC 2.53 L (4.40-5.60) X 10*6/uL Hgb 8.4 L (13.0-17.0) g/dL Hct 25.8 L (39.6-50.0) % MCV 102.0 H (80.0-97.0) fL MCH 33.2 H (27.0-32.0) pg RDW 14.6 H (11.5-14.5) % Lymphocytes # 0.84 L (0.90-5.00) X 10*3/uL Carbon Dioxide 33.3 H (21.6-31.8) mmol/L BUN/Creatinine Ratio 30.00 H (12.00-20.00) Ratio Microbiology - Last 24 Hours (Table) 06/21/20 22:02 Blood Culture - Preliminary Blood No Growth after 48 hours 06/21/20 16:45 Anaerobic Culture - Preliminary Knee - Right 06/21/20 16:45 Gram Stain - Final Knee - Right Wound Culture - Final Assessment and Plan Assessment: Right leg redness suspicious for cellulitis rather than hematoma which is felt less likely with INR is subtherapeutic on admission Fall secondary to alcohol intoxication 4-5 days prior to admission Right arm bruising and laceration. Paroxysmal atrial fibrillation on anticoagulation with Coumadin. INR 1.3 on admission History of aortic valve replacement COPD not in exacerbation Diabetes type 2 GERD Hearing disorder/deafness Hypertension Hyperlipidemia Obstructive sleep apnea on CPAP Peripheral vascular disease history of bilateral femoral bypass surgery Prior history of smoking and alcohol use disorder Plan: This is a pleasant 75 years old male who presents with Right leg pain and redness and swelling. Cellulitis is more likely, hematomas less likely. Start the patient on cefazolin, follow-up wound and blood culture. Follow-up recommendation with infectious disease team Monitor blood pressure and keep fluid restriction per child development professor, hold lisinopril, spironolactone, lower the dose of metoprolol to 50 milligrams daily. [facility] team on the case. Labs and medication were reviewed.. Continue same treatment. Continue with symptomatic treatment. Resume home medication. Monitor lytes and vitals. DVT and GI prophylaxis. Further recommendations as per clinical course of the patient DVT prophylaxis: Subcutaneous heparin, restart Coumadin, keep monitoring closely for any worsening hematoma or bleeding GI Prophylaxis: Pepcid PT/OT: recommended ECF for rehab medical social worker on the case Prognosis is guarded
[2020-06-24 16:16] LABS: INR 1.1 (<1.2)
--- NOTE | 2020-06-24 16:53 | PN ---
PROGRESS NOTE DATE OF SERVICE: 06/24/2020 REASON FOR FOLLOWUP: Right lower extremity wound and cellulitis. INTERVAL HISTORY: The patient is currently afebrile. The patient is breathing comfortably. The patient denies having any chest pain or shortness of breath or cough. No nausea, no vomiting. No abdominal pain. Pain to the right lower extremity is currently controlled. PHYSICAL EXAMINATION: Blood pressure 102/68 with a pulse of 130, temperature 98.1. He is 91% on room air. General description is an elderly male up in the chair in no distress. RESPIRATORY SYSTEM: Unlabored breathing. Clear to auscultation anteriorly. HEART: S1, S2. Regular rate and rhythm. Right lower extremity swelling and redness have slightly decreased. LABS: Hemoglobin 8.4, white count 5.15, creatinine 0.8. Local culture negative. Blood culture so far negative. DIAGNOSTIC IMPRESSION AND PLAN: Patient with a right lower extremity wound with secondary cellulitis. The patient is currently covered with cefazolin. Finish therapy with oral Keflex. Local care with Aquacel Silver dressing and Sulaiman wrap. Continue with supportive care. MMODL / IJN: [id number] /
[2020-06-24] MEDS ORDERED: WARFARIN 2 MG TAB PO ONE (18:00)
[2020-06-24] MEDS: CYANOCOBALAMIN 500 MCG TAB PO SCH (20:35)
[2020-06-24] MEDS: TAMSULOSIN 0.4 MG CAP.ER.24H PO SCH (20:35)
[2020-06-24] MEDS: MONTELUKAST 10 MG TAB PO SCH (20:36)
[2020-06-24] MEDS: ATORVASTATIN 40 MG TAB PO SCH (20:36)
[2020-06-25] MEDS: MORPHINE SULFATE 4 MG/ML SYRINGE IV PRN ×2 (05:20→14:35)
--- NOTE | 2020-06-25 08:03 | P.PN ---
Progress Note - Text Progress Note Date: 06/25/20 The patient is seen and examined today at bedside. There is no significant change in his right lower extremity. I do not have a specific fluid collection other than the blister over his lower leg. Blister seems to be intact without any purulence. He is still sensitive over his anterolateral right lower leg that is unchanged. The hematoma seems to be improving in terms of his distal lower leg. Extensive hematoma right lower leg Possible early cellulitis right lower leg No specific abscess At this point I do not have plan for surgical intervention for his right lower leg. There is no specific fluid collection for appropriate drainage and it would be quite difficult to determine his status for healing if we replace incision on his leg. He is being followed for possible early cellulitis with infectious disease and I think is appropriate. It is okay for him to resume his blood thinners from an orthopedic standpoint and we can follow him essentially peripherally.
[2020-06-25] MEDS: IPRATROPIUM 0.5 MG/2.5 ML NEBU INHALATION SCH ×3 (08:04→15:25)
[2020-06-25] MEDS: SYMBICORT 160-4.5 MCG INHALER INHALATION SCH (08:04)
[2020-06-25 08:24] LABS: INR 1.2 (<1.2); Prothrombin Time 12.2 sec (9.0-12.0)
[2020-06-25] MEDS ORDERED: METOPROLOL SUCCINATE (ER) 25 MG TAB.ER.24H PO SCH (09:00)
[2020-06-25] MEDS: HEPARIN SODIUM,PORCINE 5,000 UNIT/ML 1 ML VIAL SQ SCH ×2 (09:04→17:29)
[2020-06-25] MEDS: MAGNESIUM OXIDE 400 MG TAB PO SCH (09:05)
[2020-06-25] MEDS: LORATADINE 10 MG TAB PO SCH (09:05)
[2020-06-25] MEDS: FERROUS SULFATE 325 MG TAB PO SCH (09:05)
[2020-06-25] MEDS: FUROSEMIDE 40 MG TAB PO SCH (09:05)
[2020-06-25] MEDS: DOCUSATE 100 MG CAP PO SCH (09:05)
[2020-06-25] MEDS: CHOLECALCIFEROL 25 MCG (1000 IU) TABLET PO SCH (09:05)
[2020-06-25] MEDS: ASPIRIN 81 MG PO SCH (09:05)
[2020-06-25] MEDS: ASCORBIC ACID 500 MG TAB PO SCH (09:05)
[2020-06-25] MEDS: allopurinoL 300 MG TAB PO SCH (09:06)
[2020-06-25] MEDS: cycloSPORINE 0.05% OPHTH 0.4 ML DROPERETTE BOTH EYES SCH (09:06)
[2020-06-25] MEDS: THIAMINE 100 MG TAB PO SCH (09:06)
[2020-06-25] MEDS: PANTOPRAZOLE 40 MG TABLET PO SCH (09:06)
[2020-06-25] MEDS: TROSPIUM CHLORIDE 20 MG TABLET PO SCH (09:06)
[2020-06-25] MEDS: FLUTICASONE 50MCG/SPRAY NASAL 16GM EA NOSTRIL SCH (09:07)
--- NOTE | 2020-06-25 13:33 | P.PN ---
Subjective Patient is seen in follow for acute kidney injury. Renal function back to baseline. Oral intake fair. Good urine output. No vomiting or diarrhea. No changes overnight. Hemodynamically stable. Vital signs are stable. General: The patient appeared well nourished and normally developed. HEENT: Head exam is unremarkable. Neck is without jugular venous distension. LUNGS: Breath sounds decreased. HEART: Rate and Rhythm are regular. ABDOMEN: Soft, nontender. EXTREMITITES: 2+ edema right lower extremity. Erythematous. Trace edema left lower extremity. Objective - Vital Signs Vital signs: Vital Signs Temp 97.8 F 06/25/20 01:25 Pulse 96 06/25/20 11:12 Resp 16 06/24/20 20:00 BP 130/80 06/25/20 01:25 Pulse Ox 97 06/25/20 01:25 Intake & Output 06/24/20 06/25/20 06/25/20 18:59 06:59 18:59 Intake Total 400 240 Output Total 850 600 Balance 400 -610 -600 Intake: Oral 400 240 Output: Urine 850 600 Other: Voiding Method Diaper Diaper Incontinent Incontinent # Voids 2 1 - Labs CBC & Chem 7: 06/24/20 05:46 06/24/20 05:46 Labs: Abnormal Lab Results - Last 24 Hours (Table) 06/25/20 Range/Units 07:17 PT 12.2 H (9.0-12.0) sec INR 1.2 H (<1.2) Microbiology - Last 24 Hours (Table) 06/21/20 22:02 Blood Culture - Preliminary Blood No Growth after 72 hours Assessment and Plan Plan: Assessment: 1. Acute kidney injury secondary to hypotension and diuresis. Baseline creatinine near 1 and peaked at 1.8 this admission - 0.8 as of yesterday. UA benign. No hydronephrosis noted on kidney ultrasound. 2. Status post fall with right lower extremity injury/cellulitis. Orthopedic surgery and ID following. 3. Hyperkalemia secondary to acute kidney injury, potassium supplementation, lisinopril and spironolactone. Resolved. 4. Chronic systolic CHF with ejection fraction of 30-35%. 5. History of TAVR. 6. Hyponatremia. Hypervolemic. Better. Plan: Continue to hold lisinopril, potassium supplementation and spironolactone. Maintain Lasix 40 mg orally once daily. Add additional 20 mg i Lasix n the evening. Continue to monitor renal function and urine output. Avoid nephrotoxins. 1500 mL fluid restriction. Repeat electrolytes in the morning.
[2020-06-25 15:03] VITALS: BP 108/57; TEMP 98.1
--- NOTE | 2020-06-25 15:07 | P.DS ---
Providers Date of admission: 06/21/20 21:10 Expected date of discharge: 06/25/20 Attending physician: Gretchen Molina Consults: 06/20/20 12:46 Consult Physician Routine Consulting Provider: Roldan Mulligan Consult Reason/Comments: Right lower leg hematoma Do you want consulting provider notified?: Yes 06/21/20 12:16 Consult Physician Urgent Consulting Provider: Luis E Wise Consult Reason/Comments: kisha Do you want consulting provider notified?: Yes 06/21/20 13:10 Consult Physician Urgent Consulting Provider: Lyle Bunch Consult Reason/Comments: rt leg cellulitis Do you want consulting provider notified?: Yes Primary care physician: [facility] Course: Patient is a 75-year-old male with a known history of atrial fibrillation and valvular heart disease, hypertension, diabetes type 2, osteoarthritis, cardiomyopathy, peripheral vascular disease with bifemoral bypass surgery, residual smoking and heavy alcohol use and obstructive sleep apnea on BiPAP at home and other multiple medical problems with history of aortic valve replacement presents to ER due to worsening right lower extremity pain and knee pain. Patient states that he fell about 4 days ago and injuring his right knee and also laceration on the right forearm. Patient developed bruising over the right lower extremities. Patient states that he was intoxicated and lost his balance. Patient presents to ER due to pain. Patient is unable to bend his right lower extremity and flex his right knee. No numbness or tingling sensation. Denies any fever or chills. No cough or sputum production. No chest pain or shortness breath. No palpitations. No dysuria or hematuria. Laboratory data showed WBC 7.8, hemoglobin 10.5 and MCV 102.8 INR 1.3 Sodium 137 potassium 4.4 chloride 97 bicarb 34 BUN 25 and creatinine 0.97 Bilirubin level is 1.5 and CK 34 and coronavirus PCR not detected Venous duplex of the right lower extremity showed no signs of DVT in the right leg. Subjective: 06/21/2020 This is a pleasant 75 years old male with multiple medical problems as above. Presents because he fell last Sunday stating he drank 2 beers and wine which is not usual for him to drink daily, later on that day he fell and there is a superficial horizontal wound on his right knee and right elbow. His right leg is swollen erythematous and reddish in color with 2-3 small blisters on the front of the upper leg, his right leg is warm and painful/tender. Ultrasound of the right leg is negative for DVT. On the presentation his INR was subtherapeutic at 1.3 and he is on Coumadin for his history of paroxysmal atrial fibrillation, although he has history of chronic systolic CHF with ejection fraction 30-35% and DVT status post bifemoral bypass surgery. Coumadin was placed on hold on admission for suspicion of hematoma however this is less likely given his subtherapeutic INR to have this became hematoma therefore cellulitis is suspected. I ordered wound culture, check forcalcitonin and C-reactive protein, start on cefazolin and consult infectious disease team Also his blood pressure was borderline line, with systolic BP is 90-100, his lisinopril and spironolactone were held and metoprolol dose was lowered from 150 down to 100 mg daily, renal ultrasound showing no hydronephrosis bilateral kidney stone. Also a bolus of normal saline of 500 mL provided and patient was started on normal saline at 50 mL per hour with nephrology team consult On checking on the evening patient was still hypotensive 81/52, another normal saline boluses of 250 is a provided and was increased to 75 mL/h and because of persistent hypotension Zyvox is added to cefazolin . Patient states that he is sure he got tested as he thinks it may be in this hospital. I called our pharmacist at the checked he did not receive tetanus in the hospital and 1 dose is ordered however patient denies any chest pain or dyspnea. He denies abdominal pain, no nausea, vomiting or weakness or headache 06/22/2020 Patient is awake and alert, sitting on chair, not moving much. His right leg redness is less severe today, also it significantly less warmth compared to yesterday. Improvement is noted after start patient on cefazolin. Zyvox was started last night but it can discontinue it today while keeping monitor the patient while on cefazolin. Infectious disease input is appreciated. Both PRO-calcitonin is elevated at 0.10 and C-reactive protein at 79.5. Also patient received 1 dose of tetanus yesterday. WOUND C.S IS PENDING His blood pressure is better today 125/70 and 93/56 is still somewhat tachycardic around 118-120. His creatinine improved to normal at 1.25 daily, also he has some drop of his sodium down to 129. And IV fluids were stopped. Patient placed on a fluid restriction by nephrology team recommendation. Lasix is on hold. Patient's CBC is a stable. Hemoglobin 8.8. His INR was subtherapeutic 1.3 on admission, restart his Coumadin 3 mg today compared to 2.5 at home as there is no evidence of hematoma and his right leg cellulitis is improving. Monitor INR His lisinopril and spironolactone are still on hold. Metoprolol start on low- dose 100 mg daily Physical therapy recommended [facility] for rehab social media executive on the case 06/23/2020 Patient right leg cellulitis is improving with less redness, he can move his toes today compared to yesterday on the are not painful however he still have pain in his right leg about 6/10 which is similar to yesterday. He is still with bilateral leg swelling. Mostly related to his HF. The left foot was STARTED ON LASIX 40 MG DAILY COMPARED TO 120 MG AT HOME. HIS CREATININE IMPROVED BACK TO NORMAL TODAY AT 1.1 area so give normal at 136 However his blood pressure in the low side 87/59 today, we will give 1 dose of midodrine and monitor blood pressure and decreased metoprolol 100 mg to 50 mg daily. Hold the lisinopril and spironolactone. Patient remains on cefazolin, with cultures pending. 06/24/2020 Patient with a right leg cellulitis secondary to a fall and right knee wound about 4-5 days prior to coming to the hospital. Infection is improving slowly on cefazolin, infectious disease team on the case. Hematoma felt less likely as INR was subtherapeutic upon admission. However, didn't is a still on hold. We will discuss with orthopedic team about when to restart him on Coumadin. We'll culture showing no growth so far as well as blood culture. Final results are pending. Is a slightly tachycardic, yesterday he was a little bit hypertensive so his metoprolol was lowered from 100 mg down to 50 mg daily which might explain his rebound tachycardia over top of his infection. At home he was taking metoprolol 150 mg daily. Also we held his lisinopril and spironolactone because of low blood pressure and kidney injury. Today his blood pressure is 116/68, we will increase his metoprolol to 25 mg tomorrow labs including CBC and BMP are stable. He is currently on cefazolin. 06/25/2020; orthopedic surgery was consulted with following recs; At this point I do not have plan for surgical intervention for his right lower leg. There is no specific fluid collection for appropriate drainage and it would be quite difficult to determine his status for healing if we replace incision on his leg. He is being followed for possible early cellulitis with infectious disease and I think is appropriate. It is okay for him to resume his blood thinners from an orthopedic standpoint and we can follow him essentially peripherally. patient is being dc'ed on PO Keflex Patient Condition at Discharge: Serious Plan - Discharge Summary New Discharge Prescriptions: New Furosemide [Lasix] 20 mg PO DAILY #30 tab Cephalexin [Keflex] 500 mg PO Q8HR 7 Days #20 cap Continue Montelukast [Singulair] 10 mg PO HS Tamsulosin [Flomax] 0.4 mg PO HS Spironolactone 25 mg PO HS Loratadine [Claritin] 10 mg PO DAILY Fluticasone Nasal [place] [Flonase Nasal [place]] 2 spr EA NOSTRIL DAILY Tiotropium 18 Mcg/Puff [Spiriva] 1 cap INHALATION RT-HS Budesonide-Formot 160-4.5 Mcg [Symbicort 160-4.5 Mcg Inhaler] 2 puff INHALATION RT-BID Solifenacin Succinate [Vesicare] 5 mg PO DAILY Aspirin EC [Ecotrin Low Dose] 81 mg PO DAILY Docusate [Colace] 200 mg PO DAILY Magnesium 250 mg PO BID Esomeprazole Magnesium [NexIUM] 40 mg PO DAILY Potassium Chloride 10 meq PO BID Ferrous Sulfate [Iron (65 MG Elemental)] 325 mg PO DAILY cycloSPORINE [Restasis] 1 drop BOTH EYES BID allopurinoL [Zyloprim] 300 mg PO DAILY Nitroglycerin Sl Tabs [Nitrostat] 0.4 mg SL Q5M PRN PRN Reason: Chest Pain Cyclobenzaprine [Flexeril] 5 mg PO HS Docusate [Colace] 100 mg PO HS Cyanocobalamin (Vitamin B-12) [Vitamin B-12] 2,500 mcg PO HS Cholecalciferol [Vitamin D3 (25 Mcg = 1000 Iu)] 75 mcg PO DAILY Ascorbic Acid [Vitamin C] 1,000 mg PO DAILY Furosemide [Lasix] 40 mg PO HS tab Metoprolol Succinate (ER) [Toprol XL] 150 mg PO DAILY 90 Days #90 tab Atorvastatin [Lipitor] 40 mg PO HS tab Warfarin [Coumadin] 2.5 mg PO DAILY #30 tab lisinopriL [Zestril] 2.5 mg PO DAILY #30 tab Discontinued Furosemide [Lasix] 80 mg PO DAILY #30 tab Discharge Medication List Montelukast [Singulair] 10 mg PO HS 09/09/13 [History] Tamsulosin [Flomax] 0.4 mg PO HS 09/09/13 [History] Spironolactone 25 mg PO HS 04/03/14 [History] Budesonide-Formot 160-4.5 Mcg [Symbicort 160-4.5 Mcg Inhaler] 2 puff INHALATION RT-BID 08/07/16 [History] Fluticasone Nasal [place] [Flonase Nasal [place]] 2 spr EA NOSTRIL DAILY 08/07/16 [History] Loratadine [Claritin] 10 mg PO DAILY 08/07/16 [History] Tiotropium 18 Mcg/Puff [Spiriva] 1 cap INHALATION RT-HS 08/07/16 [History] Solifenacin Succinate [Vesicare] 5 mg PO DAILY 05/02/17 [History] Aspirin EC [Ecotrin Low Dose] 81 mg PO DAILY 09/12/17 [History] Docusate [Colace] 200 mg PO DAILY 05/30/19 [History] Esomeprazole Magnesium [NexIUM] 40 mg PO DAILY 10/03/19 [History] Ferrous Sulfate [Iron (65 MG Elemental)] 325 mg PO DAILY 10/03/19 [History] Magnesium 250 mg PO BID 10/03/19 [History] Potassium Chloride 10 meq PO BID 10/03/19 [History] cycloSPORINE [Restasis] 1 drop BOTH EYES BID 01/15/20 [History] Nitroglycerin Sl Tabs [Nitrostat] 0.4 mg SL Q5M PRN 04/16/20 [History] allopurinoL [Zyloprim] 300 mg PO DAILY 04/16/20 [History] Ascorbic Acid [Vitamin C] 1,000 mg PO DAILY 06/02/20 [History] Cholecalciferol [Vitamin D3 (25 Mcg = 1000 Iu)] 75 mcg PO DAILY 06/02/20 [History] Cyanocobalamin (Vitamin B-12) [Vitamin B-12] 2,500 mcg PO HS 06/02/20 [History] Cyclobenzaprine [Flexeril] 5 mg PO HS 06/02/20 [History] Docusate [Colace] 100 mg PO HS 06/02/20 [History] Atorvastatin [Lipitor] 40 mg PO HS tab 06/08/20 [Rx] Furosemide [Lasix] 40 mg PO HS tab 06/08/20 [Rx] Metoprolol Succinate (ER) [Toprol XL] 150 mg PO DAILY 90 Days #90 tab 06/08/20 [Rx] Warfarin [Coumadin] 2.5 mg PO DAILY #30 tab 06/09/20 [Rx] lisinopriL [Zestril] 2.5 mg PO DAILY #30 tab 06/09/20 [Rx] Cephalexin [Keflex] 500 mg PO Q8HR 7 Days #20 cap 06/25/20 [Rx] Furosemide [Lasix] 20 mg PO DAILY #30 tab 06/25/20 [Rx] Follow up Appointment(s)/Referral(s): Roldan Mulligan DO [Doctor of Osteopathic Medicine] - 1 Week (Patient may follow-up with Dr. Jefry Mulligan at [facility] in 1 week following discharge. ) [facility]inic [Primary Care Provider] - 1-2 days Activity/Diet/Wound Care/Special Instructions: 1. Encouraged to keep the right lower extremity elevated 2. May benefit by applying warm compresses the right lower extremity for comfort as needed Discharge Disposition: HOME SELF-CARE
[2020-06-25 15:38] VITALS: PULSE 96
--- NOTE | 2020-06-25 15:42 | PN ---
PROGRESS NOTE DATE OF SERVICE: 06/25/2020 REASON FOR FOLLOWUP: Right lower extremity wound and cellulitis. INTERVAL HISTORY: The patient is currently afebrile. Patient is breathing comfortably. Denies having any chest pain, no shortness of breath or cough. No worsening pain in the right lower extremity. PHYSICAL EXAMINATION: Blood pressure 108/57, pulse of 98, temperature 98.1. He is 94% on 2 L nasal cannula. General description is an elderly male up in the chair in no distress. RESPIRATORY SYSTEM: Unlabored breathing, decreased breath sounds in the base, no wheeze. HEART: S1, S2. Regular rate and rhythm. ABDOMEN: Soft, no tenderness. The right lower extremity is wrapped up. No obvious drainage on the dressing. LABS: INR is 1.2. Culture has been negative. DIAGNOSTIC IMPRESSION AND PLAN: Patient with right lower extremity wound with secondary cellulitis. Culture has been negative for any resistant pathogen. Finish therapy with oral Keflex, Aquacel Silver dressing and Sulaiman wrap to the leg and follow up in the wound center. MMODL / IJN: [id number] /
[2020-06-25] MEDS ORDERED: WARFARIN 2 MG TAB PO ONE (18:00)
[2020-06-26] MEDS ORDERED: FUROSEMIDE 20 MG TAB PO SCH (09:00)
== END 2020-06-25 18:45 | DRG 603 ==
LOC: EC 10:58 → 6NMEDSUR 13:02 → OBSVTOIN 06-21 21:10
PROVIDERS: ADMIT Internal Medicine; ATTEND Internal Medicine
PROC: 3E0234Z Introduction of Serum, Toxoid and Vaccine into Muscle, Percutaneous Approach (ICD-10-PCS; principal; 2020-06-21)
DX: L03.115 Cellulitis of right lower limb (principal); I42.9 Cardiomyopathy, unspecified; N17.9 Acute kidney failure, unspecified; I50.22 Chronic systolic (congestive) heart failure; E87.1 Hypo-osmolality and hyponatremia; I11.0 Hypertensive heart disease with heart failure; E11.51 Type 2 diabetes mellitus with diabetic peripheral angiopathy without gangrene; I95.9 Hypotension, unspecified; I48.0 Paroxysmal atrial fibrillation; J44.9 Chronic obstructive pulmonary disease, unspecified; Z20.822 Contact with and (suspected) exposure to COVID-19; S81.811A Laceration without foreign body, right lower leg, initial encounter; S80.01XA Contusion of right knee, initial encounter; F10.10 Alcohol abuse, uncomplicated; Z23 Encounter for immunization; S40.021A Contusion of right upper arm, initial encounter; S51.811A Laceration without foreign body of right forearm, initial encounter; E87.5 Hyperkalemia; R79.1 Abnormal coagulation profile; I25.10 Atherosclerotic heart disease of native coronary artery without angina pectoris; K21.9 Gastro-esophageal reflux disease without esophagitis; E78.5 Hyperlipidemia, unspecified; H91.90 Unspecified hearing loss, unspecified ear; M19.90 Unspecified osteoarthritis, unspecified site; G47.33 Obstructive sleep apnea (adult) (pediatric); K44.9 Diaphragmatic hernia without obstruction or gangrene; I35.0 Nonrheumatic aortic (valve) stenosis; Z95.2 Presence of prosthetic heart valve; Z79.82 Long term (current) use of aspirin; Z79.51 Long term (current) use of inhaled steroids; Z79.01 Long term (current) use of anticoagulants; Z79.899 Other long term (current) drug therapy; Z91.81 History of falling; Z87.891 Personal history of nicotine dependence; Z87.01 Personal history of pneumonia (recurrent); Z85.46 Personal history of malignant neoplasm of prostate; Z90.49 Acquired absence of other specified parts of digestive tract; Z87.19 Personal history of other diseases of the digestive system; Z95.5 Presence of coronary angioplasty implant and graft; Z90.89 Acquired absence of other organs; Z98.42 Cataract extraction status, left eye; Z98.41 Cataract extraction status, right eye; Z87.448 Personal history of other diseases of urinary system; Z87.442 Personal history of urinary calculi; Z86.79 Personal history of other diseases of the circulatory system; Z98.890 Other specified postprocedural states; Z88.8 Allergy status to other drugs, medicaments and biological substances; Z83.79 Family history of other diseases of the digestive system; W07.XXXA Fall from chair, initial encounter
CPT/HCPCS: 36415; 76770; 80048; 80053; 81003; 82550; 83605; 83735; 84132; 84145; 85025; 85610; 85730; 86140; 87040; 87070; 87075; 87205; 87635; 90715; 94640; 94760; 96374; 96375; 99285

== ENCOUNTER → 2020-12-30 | Outpatient (CLI) | payer MEDICARE ==
[2020-12-30 11:35] LABS: HCT 42.1 % (39.0-53.0); HGB 13.7 gm/dL (13.0-17.5); MCH 33.4 pg (25.0-35.0); MCHC 32.5 g/dL (31.0-37.0); MCV 102.8 fL (80.0-100.0); Macrocytosis Slight; Mean Platelet Volume 7.8; Platelet Count 195 k/uL (150-450); RBC 4.09 m/uL (4.30-5.90); RDW 15.4 % (11.5-15.5); WBC 7.2 k/uL (3.8-10.6)
[2020-12-30 11:42] LABS: Potassium 4.1 mmol/L (3.5-5.1)
== END | disposition home or self-care (01) ==
LOC: LABPAT 10:37
PROVIDERS: ATTEND Internal Medicine Clinical Cardiac Electrophysiology
DX: Z01.812 Encounter for preprocedural laboratory examination (principal); I48.19 Other persistent atrial fibrillation
CPT/HCPCS: 36415; 80051; 82565; 84520; 85027

== ENCOUNTER 2021-01-11 09:46 | Day surgery (SDC) | payer MEDICARE ==
[2021-01-07 12:10] VITALS: BMI 21.5
[~2021-01-11 09:46] MED LIST changes: -ALPRAZolam 0.25 MG TAB PO PRN; -ALPRAZolam 0.5 MG TAB PO PRN; -ASPIRIN 325 MG TAB PO STA; +LACTATED RINGERS 1,000 ML IV SCH; -NITROGLYCERIN SL TABS 0.4 MG TAB SUBLINGUAL PRN; +SODIUM CHLORIDE 0.9% 1,000 ML IV SCH; -SODIUM CHLORIDE 0.9% 1,000 ML in EMPTY BAG 1 BAG IV ONE
[2021-01-11] MEDS ORDERED: SODIUM CHLORIDE 0.9% 500 ML 500 ML IV ONE (10:01)
[2021-01-11 10:15] VITALS: RESP 16; TEMP 97.1
[2021-01-11 11:03] LABS: INR 2.4 (<1.2); Prothrombin Time 22.8 sec (9.0-12.0)
[2021-01-11] MEDS ORDERED: PROPOFOL 10 MG/ML 20 ML VIAL IV ONE (11:49)
--- NOTE | 2021-01-11 12:02 | P.EPPROC ---
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 PACs noted postprocedure Patient tolerated the procedure well without any acute complications Plan Twelve-lead EKG today Follow Dr. Nguyễn after 2 weeks Follow-up Holter monitor Follow-up 2-D echo to reassess LV function and atrial size Thereafter decision regarding A. fib ablation versus biventricular device implant and AV node modification Depending upon whether he maintains sinus rhythm and not, whether this improvement in LV function with maintenance of sinus rhythm or not Continue amiodarone for now along with anticoagulation
[2021-01-11 15:00] VITALS: BP 122/55; PULSE 76
== END 2021-01-11 13:15 | disposition home or self-care (01) ==
LOC: CATHEP 09:46
PROVIDERS: ATTEND Internal Medicine Clinical Cardiac Electrophysiology
DX: I48.19 Other persistent atrial fibrillation (principal); Z79.01 Long term (current) use of anticoagulants; I25.10 Atherosclerotic heart disease of native coronary artery without angina pectoris; J44.9 Chronic obstructive pulmonary disease, unspecified; E11.9 Type 2 diabetes mellitus without complications; I10 Essential (primary) hypertension; E78.5 Hyperlipidemia, unspecified; Z20.822 Contact with and (suspected) exposure to COVID-19; M19.90 Unspecified osteoarthritis, unspecified site; K21.9 Gastro-esophageal reflux disease without esophagitis; Z95.2 Presence of prosthetic heart valve; I42.8 Other cardiomyopathies; Z87.891 Personal history of nicotine dependence; Z87.442 Personal history of urinary calculi; Z95.5 Presence of coronary angioplasty implant and graft; Z79.82 Long term (current) use of aspirin; Z79.51 Long term (current) use of inhaled steroids; Z79.899 Other long term (current) drug therapy; Z88.8 Allergy status to other drugs, medicaments and biological substances
CPT/HCPCS: 92960; 85610; 87635; J2704

== ENCOUNTER 2021-03-07 13:49 | Inpatient (IN) | payer MEDICARE ==
--- NOTE | 2021-03-07 14:24 | ED ---
SOB HPI - General Chief Complaint: Shortness of Breath Stated Complaint: Resp Distress Source: patient, EMS Mode of arrival: EMS Limitations: no limitations - History of Present Illness Initial Comments: 76-year-old male past medical history of COPD on 2 L of home O2 approximately "80% of the time" presents to the emergency department from urgent care. He reports that he has been increasingly short of breath for the past 3 days. Admits to a chronic nonproductive cough. No chest pain. Denies any fevers. Does admit to mild lower external swelling. No history of DVT or PE. He also has a history of A. fib and is on coumadin. He denies any sick contacts. No Covid exposures. Patient is vaccinated against Covid. He went into urgent care wearing his 2 L. Pulse ox was obtained and the patient was saturating in the low 80s. Because of this they did call EMS to transfer the patient to the hospital. Patient reports that his oxygen has been falling into the low 80s at home while wearing his oxygen. Normally he states his oxygen saturations are 98%. He denies nausea, vomiting or diarrhea. States he feels the same as when he was diagnosed with pneumonia a couple of years ago. Patient not currently on any steroids. No other alleviating, precipitating or modifying factors - Related Data Home Medications Medication Instructions Recorded Confirmed Montelukast [Singulair] 10 mg PO HS 09/09/13 03/07/21 Tamsulosin [Flomax] 0.4 mg PO HS 09/09/13 03/07/21 Fluticasone Nasal [place] [Flonase 1 spr EA NOSTRIL BID 08/07/16 03/07/21 Nasal [place]] Loratadine [Claritin] 10 mg PO DAILY 08/07/16 03/07/21 Solifenacin Succinate [Vesicare] 5 mg PO DAILY 05/02/17 03/07/21 Aspirin EC [Ecotrin Low Dose] 81 mg PO DAILY 09/12/17 03/07/21 Esomeprazole Magnesium [NexIUM] 40 mg PO DAILY 10/03/19 03/07/21 Magnesium 250 mg PO BID 10/03/19 03/07/21 Potassium Chloride [Potassium 10 meq PO BID 10/03/19 03/07/21 Chloride ER] cycloSPORINE [Restasis] 1 drop BOTH EYES BID 01/15/20 03/07/21 Nitroglycerin Sl Tabs [Nitrostat] 0.4 mg SL Q5M PRN 04/16/20 03/07/21 allopurinoL [Zyloprim] 300 mg PO DAILY 04/16/20 03/07/21 Ascorbic Acid [Vitamin C] 1,000 mg PO DAILY 06/02/20 03/07/21 Cholecalciferol [Vitamin D3 (25 25 mcg PO DAILY 06/02/20 03/07/21 Mcg = 1000 Iu)] Cyanocobalamin (Vitamin B-12) 2,500 mcg PO HS 06/02/20 03/07/21 [Vitamin B-12] Cyclobenzaprine [Flexeril] 5 mg PO HS 06/02/20 03/07/21 Docusate [Colace] 100 mg PO BID 06/02/20 03/07/21 Metoprolol Succinate (ER) [Toprol 100 mg PO DAILY 01/07/21 03/07/21 XL] lisinopriL [Zestril] 2.5 mg PO HS 01/11/21 03/07/21 Albuterol Inhaler [Ventolin Hfa 2 puff INHALATION RT-Q4H PRN 03/07/21 03/07/21 Inhaler] Amiodarone HCl [Pacerone] 100 mg PO DAILY 03/07/21 03/07/21 Atorvastatin [Lipitor] 80 mg PO HS 03/07/21 03/07/21 Famotidine [Pepcid] 20 mg PO DAILY PRN 03/07/21 03/07/21 Fluticasone [place]/Salmeterol 1 puff INHALATION RT-BID 03/07/21 03/07/21 [Fluticasone-Salmeterol 250-50] Furosemide [Lasix] 40 mg PO BID 03/07/21 03/07/21 Tiotropium 2.5 Mcg/Puff [Spiriva 1 puff INHALATION RT-HS 03/07/21 03/07/21 Respimat 2.5 Mcg] Warfarin [Coumadin] 2.5 mg PO SUMOWEFRSA@2100 03/07/21 03/07/21 Warfarin [Coumadin] 3.75 mg PO TUTH@2100 03/07/21 03/07/21 Allergies Allergy/AdvReac Type Severity Reaction Status Date / Time Myazlcp-BTN-FqH Reductase Allergy Mild Rash/Hives Verified 03/07/21 16:06 Inhibitor [Zvvfvkd-Pyp-Jfh Reductase Inhibitor] Review of Systems ROS Statement: Those systems with pertinent positive or pertinent negative responses have been documented in the HPI. ROS Other: All systems not noted in ROS Statement are negative. Past Medical History Past Medical History: Atrial Fibrillation, Asthma, Coronary Artery Disease (CAD), Cancer, COPD, GERD/Reflux, Hearing Disorder / Deafness, Hyperlipidemia, Hypertension, Osteoarthritis (OA), Pneumonia, Prostate Disorder, Sleep Apnea/CPAP/BIPAP, Vascular Disorder Additional Past Medical History / Comment(s): See Dr Rocha's H&P,Prostate cancer-monitoring, see Dr Nguyễn H&P FOR CARDIAC HISTORY , O2 2L PRN AND AT BEDTIME , hiatal hernia, kidney stones, "bad back", past a fib cardiomyopathy aortic stenosi,borderline DIABETIC -DIET CONTROLLED, aortic valve replacment 09/03 History of Any Multi-Drug Resistant Organisms: None Reported Past Surgical History: Ablation, Bladder Surgery, Cholecystectomy, Heart Catheterization With Stent, Hernia Repair, Tonsillectomy Additional Past Surgical History / Comment(s): CARDIOVERSION, MUKESH FEMORAL BYPASS SURGERY, MUKESH.inguinal hernia, UMBILICAL HERNIA REPAIR, surgery for PILONIDAL CYST, mukesh CATARACTS, ARCH/AORTOGRAM, cystoscopy for KIDNEY STONE REMOVAL x 3, LT CAROTID ENDARTECTOMY. BRAYDEN 05/10/17, 06/06, 06/04/19, 2 stents to the RCA Past Anesthesia/Blood Transfusion Reactions: No Reported Reaction Date of Last Stent Placement:: 06/06/18 Past Psychological History: No Psychological Hx Reported Smoking Status: Former smoker - Past Family History Father Family Medical History: Liver Disease Mother Family Medical History: No Reported History Additional Family Medical History / Comment(s): . General Exam Limitations: no limitations Course Vital Signs 03/07/21 03/07/21 03/07/21 13:51 16:20 17:15 Temperature 99.8 F H Pulse Rate 74 67 64 Respiratory 18 20 Rate Blood Pressure 120/77 121/58 O2 Sat by Pulse 96 98 Oximetry 03/07/21 03/07/21 03/07/21 17:24 17:40 17:59 Temperature Pulse Rate 64 65 Respiratory 18 20 Rate Blood Pressure 119/51 O2 Sat by Pulse 98 Oximetry 03/07/21 03/07/21 20:16 20:23 Temperature Pulse Rate 87 88 Respiratory Rate Blood Pressure O2 Sat by Pulse Oximetry Medical Decision Making - Medical Decision Making Arrival patient is placed into room 16. A thorough history and physical exam is performed. IV is established and laboratory studies are conducted. INR th erapeutic at 2.8. Coag not detected. Troponin negative. Chest x-ray is performed which demonstrates lower lobe infiltrate compatible with pneumonia. Patient is on 3 L of oxygen at this time saturating 98%. Blood cultures were obtained and the patient was initiated on antibiotics. He is given 125 mg of Solu-Medrol and a DuoNeb breathing treatment. I recommended admission to the hospital for which the patient did agree to. Spoke with Dr. Horta who agreed to admit the patient. Patient awaiting a bed on the floor in stable condition - Lab Data Result diagrams: 03/07/21 14:36 03/07/21 14:36 Lab Results 03/07/21 03/07/21 03/07/21 Range/Units 14:36 14:36 14:36 WBC 7.8 (3.8-10.6) k/uL RBC 3.53 L (4.30-5.90) m/uL Hgb 11.6 L (13.0-17.5) gm/dL Hct 34.8 L (39.0-53.0) % MCV 98.8 (80.0-100.0) fL MCH 33.0 (25.0-35.0) pg MCHC 33.4 (31.0-37.0) g/dL RDW 14.3 (11.5-15.5) % Plt Count 168 (150-450) k/uL MPV 8.0 Neutrophils % 75 % Lymphocytes % 12 % Monocytes % 10 % Eosinophils % 2 % Basophils % 0 % Neutrophils # 5.8 (1.3-7.7) k/uL Lymphocytes # 1.0 (1.0-4.8) k/uL Monocytes # 0.7 (0-1.0) k/uL Eosinophils # 0.2 (0-0.7) k/uL Basophils # 0.0 (0-0.2) k/uL PT 26.8 H (9.0-12.0) sec INR 2.8 H (<1.2) APTT 37.4 H (22.0-30.0) sec Sodium 137 (137-145) mmol/L Potassium 4.9 (3.5-5.1) mmol/L Chloride 98 (98-107) mmol/L Carbon Dioxide 32 H (22-30) mmol/L Anion Gap 7 mmol/L BUN 38 H (9-20) mg/dL Creatinine 1.15 (0.66-1.25) mg/dL Est GFR (CKD-EPI)AfAm 72 (>60 ml/min/1.73 sqM) Est GFR (CKD-EPI)NonAf 62 (>60 ml/min/1.73 sqM) Glucose 106 H (74-99) mg/dL Plasma Lactic Acid Frank (0.7-2.0) mmol/L Calcium 8.8 (8.4-10.2) mg/dL Magnesium 2.1 (1.6-2.3) mg/dL Total Bilirubin 0.4 (0.2-1.3) mg/dL AST 38 (17-59) U/L ALT 33 (4-49) U/L Alkaline Phosphatase 74 (38-126) U/L Troponin I (0.000-0.034) ng/mL Total Protein 6.8 (6.3-8.2) g/dL Albumin 3.3 L (3.5-5.0) g/dL Coronavirus (PCR) (Not Detectd) 03/07/21 03/07/21 03/07/21 Range/Units 14:36 14:36 14:36 WBC (3.8-10.6) k/uL RBC (4.30-5.90) m/uL Hgb (13.0-17.5) gm/dL Hct (39.0-53.0) % MCV (80.0-100.0) fL MCH (25.0-35.0) pg MCHC (31.0-37.0) g/dL RDW (11.5-15.5) % Plt Count (150-450) k/uL MPV Neutrophils % % Lymphocytes % % Monocytes % % Eosinophils % % Basophils % % Neutrophils # (1.3-7.7) k/uL Lymphocytes # (1.0-4.8) k/uL Monocytes # (0-1.0) k/uL Eosinophils # (0-0.7) k/uL Basophils # (0-0.2) k/uL PT (9.0-12.0) sec INR (<1.2) APTT (22.0-30.0) sec Sodium (137-145) mmol/L Potassium (3.5-5.1) mmol/L Chloride (98-107) mmol/L Carbon Dioxide (22-30) mmol/L Anion Gap mmol/L BUN (9-20) mg/dL Creatinine (0.66-1.25) mg/dL Est GFR (CKD-EPI)AfAm (>60 ml/min/1.73 sqM) Est GFR (CKD-EPI)NonAf (>60 ml/min/1.73 sqM) Glucose (74-99) mg/dL Plasma Lactic Acid Frnak 1.1 (0.7-2.0) mmol/L Calcium (8.4-10.2) mg/dL Magnesium (1.6-2.3) mg/dL Total Bilirubin (0.2-1.3) mg/dL AST (17-59) U/L ALT (4-49) U/L Alkaline Phosphatase (38-126) U/L Troponin I <0.012 (0.000-0.034) ng/mL Total Protein (6.3-8.2) g/dL Albumin (3.5-5.0) g/dL Coronavirus (PCR) Not Detected (Not Detectd) - EKG Data EKG Comments: EKG demonstrates a sinus rhythm with a ventricular rate of 74. Irritable 182. QRS 102. QTC of 435. Some baseline artifact. No acute ST segment elevations Disposition Clinical Impression: Hypoxia, PNA (pneumonia), Chronic respiratory disease Disposition: ADMITTED IP TO THIS [facility] Condition: Stable Is patient prescribed a controlled substance at d/c from ED?: No Decision to Admit Reason: Admit from EC Decision Date: 03/07/21 Decision Time: 16:53
[2021-03-07 15:00] LABS: Basophils % (A) 0 %; Eosinophils # (A) 0.2 k/uL (0-0.7); Eosinophils % (A) 2 %; HCT 34.8 % (39.0-53.0); HGB 11.6 gm/dL (13.0-17.5); Lymphocytes % (A) 12 %; MCHC 33.4 g/dL (31.0-37.0); MCV 98.8 fL (80.0-100.0); Monocytes # (A) 0.7 k/uL (0-1.0); Monocytes % (A) 10 %; Neutrophils # (A) 5.8 k/uL (1.3-7.7); Neutrophils % (A) 75 %; Platelet Count 168 k/uL (150-450); RBC 3.53 m/uL (4.30-5.90); RDW 14.3 % (11.5-15.5); WBC 7.8 k/uL (3.8-10.6)
[2021-03-07 15:08] LABS: INR 2.8 (<1.2); Partial Thromboplastin Time 37.4 sec (22.0-30.0); Prothrombin Time 26.8 sec (9.0-12.0)
[2021-03-07 15:09] LABS: Albumin 3.3 g/dL (3.5-5.0); Calcium 8.8 mg/dL (8.4-10.2); Magnesium 2.1 mg/dL (1.6-2.3); Potassium 4.9 mmol/L (3.5-5.1); Total Bilirubin 0.4 mg/dL (0.2-1.3); Total Protein 6.8 g/dL (6.3-8.2)
--- NOTE | 2021-03-07 15:10 | XR ---
EXAMINATION TYPE: XR chest 2V DATE OF EXAM: 03/07/2021 COMPARISON: 06/08/2020 INDICATION: Difficulty breathing TECHNIQUE: Frontal and lateral views of the chest are obtained. FINDINGS: The heart size is normal. The pulmonary vasculature is normal. There is a lower lobe infiltrate. Correlate for pneumonia. Follow-up is recommended. This is best vis ualized on the lateral projection and appears to be in the retrocardiac region. IMPRESSION: 1. Lower lobe infiltrate, likely on the left cardiac region can be compatible with pneumonia. Follow- up is recommended
[2021-03-07] MEDS ORDERED: methylPREDNISolone SOD SUCCI 125 MG/2 ML VIAL IV STA (16:21)
[2021-03-07] MEDS ORDERED: IPRATROPIUM-ALBUTEROL 3 ML NEB INHALATION STA (16:21)
[2021-03-07] MEDS ORDERED: cefTRIAXone IN SWFI 1,000 MG/10 ML SYRINGE IVP STA (16:22)
[2021-03-07] MEDS ORDERED: AZITHROMYCIN 500 MG in SODIUM CHLORIDE 0.9% 250 ML IVPB STA (16:22)
[2021-03-07] MEDS ORDERED: NALOXONE 0.4 MG/ML 1 ML VIAL IV PRN (16:54)
[2021-03-07] MEDS ORDERED: IPRATROPIUM-ALBUTEROL 3 ML NEB INHALATION PRN (18:42)
[2021-03-07] MEDS ORDERED: IPRATROPIUM-ALBUTEROL 3 ML NEB INHALATION SCH (20:00)
[2021-03-07] MEDS: IPRATROPIUM-ALBUTEROL 3 ML NEB INHALATION SCH (20:15)
[2021-03-07] MEDS ORDERED: FAMOTIDINE 20 MG TAB PO PRN (21:04)
[2021-03-07] MEDS: DOCUSATE 100 MG CAP PO SCH (22:28)
[2021-03-07] MEDS: methylPREDNISolone SOD SUCCI 40 MG/ML 1 ML VIAL IV SCH (22:38)
[2021-03-07] MEDS: CYCLOBENZAPRINE 10 MG TAB PO SCH (22:38)
[2021-03-07] MEDS: MONTELUKAST 10 MG TAB PO SCH (22:38)
[2021-03-07] MEDS: MAGNESIUM OXIDE 400 MG TAB PO SCH (22:38)
[2021-03-08] MEDS: SYMBICORT 80-4.5 MCG INHALER INHALATION SCH ×2 (08:43→23:06)
[2021-03-08] MEDS: IPRATROPIUM-ALBUTEROL 3 ML NEB INHALATION SCH ×4 (08:43→23:06)
[2021-03-08] MEDS: ASCORBIC ACID 500 MG TAB PO SCH (08:52)
[2021-03-08] MEDS: LORATADINE 10 MG TAB PO SCH (08:52)
[2021-03-08] MEDS: allopurinoL 300 MG TAB PO SCH (08:52)
[2021-03-08] MEDS: PANTOPRAZOLE 40 MG TABLET PO SCH (08:52)
[2021-03-08] MEDS: MAGNESIUM OXIDE 400 MG TAB PO SCH ×2 (08:52→21:07)
[2021-03-08] MEDS: CHOLECALCIFEROL 25 MCG (1000 IU) TABLET PO SCH (08:52)
[2021-03-08] MEDS: DOCUSATE 100 MG CAP PO SCH ×2 (08:52→21:07)
[2021-03-08] MEDS: POTASSIUM CHLORIDE ER 10 MEQ TAB.ER.PRT PO SCH ×2 (08:53→08:54)
[2021-03-08] MEDS: TAMSULOSIN 0.4 MG CAP.ER.24H PO SCH ×2 (08:54→21:07)
[2021-03-08] MEDS: ASPIRIN 81 MG PO SCH (08:54)
[2021-03-08] MEDS: FLUTICASONE 50MCG/SPRAY NASAL 16GM EA NOSTRIL SCH ×2 (08:57→21:38)
[2021-03-08] MEDS ORDERED: FUROSEMIDE 40 MG TAB PO SCH (09:00)
[2021-03-08 09:18] LABS: Basophils # (A) 0.01 X 10*3/uL (0.00-0.10); Basophils % (A) 0.1 %; Eosinophils # (A) 0 X 10*3/uL (0.04-0.35); Eosinophils % (A) 0 %; HCT 35.4 % (39.6-50.0); HGB 11.1 g/dL (13.0-17.0); Lymphocytes # (A) 0.69 X 10*3/uL (0.90-5.00); Lymphocytes % (A) 9.9 %; MCH 32.1 pg (27.0-32.0); MCHC 31.4 g/dL (32.0-37.0); MCV 102.3 fL (80.0-97.0); Mean Platelet Volume 10.5 fL (9.5-12.2); Monocytes # (A) 0.28 X 10*3/uL (0.20-1.00); Neutrophils # (A) 5.95 X 10*3/uL (1.80-7.70); Neutrophils % (A) 85.4 %; Platelet Count 192 X 10*3/uL (140-440); RBC 3.46 X 10*6/uL (4.40-5.60); RDW 14.6 % (11.5-14.5); WBC 6.97 X 10*3/uL (4.50-10.00)
[2021-03-08 09:19] LABS: INR 2.41 (0.90-1.11); Prothrombin Time 25.4 sec (9.9-11.9)
[2021-03-08] MEDS: cycloSPORINE 0.05% OPHTH 0.4 ML DROPERETTE BOTH EYES SCH ×2 (10:06→21:07)
[2021-03-08] MEDS: TROSPIUM CHLORIDE 20 MG TABLET PO SCH (10:06)
[2021-03-08] MEDS: methylPREDNISolone SOD SUCCI 40 MG/ML 1 ML VIAL IV SCH ×2 (10:06→18:21)
[2021-03-08] MEDS: AMIODARONE 200 MG TAB PO SCH (10:07)
[2021-03-08] MEDS: METOPROLOL SUCCINATE (ER) 100 MG TAB.ER.24H PO SCH (11:05)
[2021-03-08 13:38] LABS: Anion Gap 10.9 mmol/L (10.00-18.00); BUN/Creat Ratio 30.97 Ratio (12.00-20.00); Blood Urea Nitrogen 31.9 mg/dL (9.0-27.0); Carbon Dioxide 29.5 mmol/L (20.0-27.5); Non-African American GFR(CKD) 70.7 (60.0-200.0); Potassium 6.1 mmol/L (3.5-5.5)
[2021-03-08] MEDS ORDERED: INSULIN REGULAR 100 UNIT/ML VIAL (IV) IV ONE (14:52)
[2021-03-08] MEDS ORDERED: DEXTROSE 50% SYRINGE 50 ML IVP STA (14:52)
--- NOTE | 2021-03-08 17:11 | P.CNPUL ---
History of Present Illness Consult date: 03/08/21 Reason for consult: dyspnea, COPD History of present illness: 76-year-old male patient with oxygen-dependent COPD maintained on oxygen at 2 L per minute nasal cannula. The patient presented to the hospital because of worsening shortness of breath a few days duration. The patient reported chronic nonproductive cough. No reported chest pain. He had exertional dyspnea. He had no exposure to COVID 19. He has been vaccinated to COVID 19. He initially presented to an urgent care and following that he was directed to the emergency as the patient was hypoxic in the pulse ox was dropping in the low 80s while him being on oxygen. He last bout of pneumonia was several years back. The patient has been maintained on oxygen in addition to Spiriva and Advair on outpatient basis and the patient has utilize albuterol neb last treatment updrafts on an as-needed basis. He has chronic atrial fibrillation. Is on amiodarone. He also utilizes warfarin for long-term anticoagulants. In the emergency department, the patient was found to be afebrile. The patient had a COVID 19 testing that came back negative. Troponins were negative. INR was therapeutic at 2.8. Chest x-ray showed lower lobe pulmonary infiltrate consistent with pneumonia. He was placed on 3 L of oxygen and saturation improved and currently is up to 90%. Blood cultures were sent. Patient was started on bronchodilators, IV Solu Medrol and antibiotics. Patient was hospitalized accordingly. The white cell count is at 7.8. Sodium is at 137 with a creatinine of 1.1. Troponin is been negative. EKG was sinus rhythm. Noted the patient has advanced COPD. His FEV1 is the order of 46% of predicted based on spirometry was done and 2017. He has also history of prostate cancer. He has hypertension, congestion heart failure, and chronic atrial fibrillation. Review of Systems Constitutional: Patient denies any fever or chills . No generalized weakness or weight loss. Abdomen: Patient denied nausea vomiting and diarrhea and abdominal pain. Cardiovascular: Patient denies any chest pain or short of breath no palpitations. Respiratory: patient has cough or sputum production. shortness of breath Neurologic: Patient denied any numbness or tingling headache. Musculoskeletal: Right knee pain and leg pain and swelling. Skin: Negative Psychiatric: Negative Endocrine: No heat or cold intolerance. No recent weight gain. Genitourinary: No dysuria or hematuria. All other 14 point ROS negative except the above Past Medical History Past Medical History: Atrial Fibrillation, Asthma, Coronary Artery Disease (CAD), Cancer, COPD, GERD/Reflux, Hearing Disorder / Deafness, Hyperlipidemia, Hypertension, Osteoarthritis (OA), Pneumonia, Prostate Disorder, Sleep Apnea/CPAP/BIPAP, Vascular Disorder Additional Past Medical History / Comment(s): COPD, chronic hypoxic respiratory failure admitted on oxygen at 2 L, chronic systolic heart failure with impaired left a ejection fraction of around 35%, history of aortic valve stenosis with a previous TAVR, carotid artery stenosis previous endarterectomy, peripheral vascular disease, chronic back pain, hyperlipidemia, prostate cancer, obstructive sleep apnea, nephrolithiasis, History of Any Multi-Drug Resistant Organisms: None Reported Past Surgical History: Ablation, Bladder Surgery, Cholecystectomy, Heart Catheterization With Stent, Hernia Repair, Tonsillectomy Additional Past Surgical History / Comment(s): CARDIOVERSION, MUKESH FEMORAL BYPASS SURGERY, MUKESH.inguinal hernia, UMBILICAL HERNIA REPAIR, surgery for PILONIDAL CYST, mukesh CATARACTS, ARCH/AORTOGRAM, cystoscopy for KIDNEY STONE REMOVAL x 3, LT CAROTID ENDARTECTOMY. BRAYDEN 05/10/17, 06/06, 06/04/19, 2 stents to the RCA Past Anesthesia/Blood Transfusion Reactions: No Reported Reaction Date of Last Stent Placement:: 06/06/18 Past Psychological History: No Psychological Hx Reported Smoking Status: Former smoker Past Alcohol Use History: Daily Additional Past Alcohol Use History / Comment(s): QUIT SMOKING 1991, SMOKED SINCE AGE 17(2). SMOKED 1-3 PPD DRINKS 1-2 BEER A DAY Past Drug Use History: None Reported - Past Family History Father Family Medical History: Liver Disease Mother Family Medical History: No Reported History Additional Family Medical History / Comment(s): . Medications and Allergies Home Medications Medication Instructions Recorded Confirmed Type Montelukast [Singulair] 10 mg PO HS 09/09/13 03/07/21 History Tamsulosin [Flomax] 0.4 mg PO HS 09/09/13 03/07/21 History Fluticasone Nasal [place] [Flonase 1 spr EA NOSTRIL BID 08/07/16 03/07/21 History Nasal [place]] Loratadine [Claritin] 10 mg PO DAILY 08/07/16 03/07/21 History Solifenacin Succinate [Vesicare] 5 mg PO DAILY 05/02/17 03/07/21 History Aspirin EC [Ecotrin Low Dose] 81 mg PO DAILY 09/12/17 03/07/21 History Esomeprazole Magnesium [NexIUM] 40 mg PO DAILY 10/03/19 03/07/21 History Magnesium 250 mg PO BID 10/03/19 03/07/21 History Potassium Chloride [Potassium 10 meq PO BID 10/03/19 03/07/21 History Chloride ER] cycloSPORINE [Restasis] 1 drop BOTH EYES BID 01/15/20 03/07/21 History Nitroglycerin Sl Tabs [Nitrostat] 0.4 mg SL Q5M PRN 04/16/20 03/07/21 History allopurinoL [Zyloprim] 300 mg PO DAILY 04/16/20 03/07/21 History Ascorbic Acid [Vitamin C] 1,000 mg PO DAILY 06/02/20 03/07/21 History Cholecalciferol [Vitamin D3 (25 25 mcg PO DAILY 06/02/20 03/07/21 History Mcg = 1000 Iu)] Cyanocobalamin (Vitamin B-12) 2,500 mcg PO HS 06/02/20 03/07/21 History [Vitamin B-12] Cyclobenzaprine [Flexeril] 5 mg PO HS 06/02/20 03/07/21 History Docusate [Colace] 100 mg PO BID 06/02/20 03/07/21 History Metoprolol Succinate (ER) [Toprol 100 mg PO DAILY 01/07/21 03/07/21 History XL] lisinopriL [Zestril] 2.5 mg PO HS 01/11/21 03/07/21 History Albuterol Inhaler [Ventolin Hfa 2 puff INHALATION RT-Q4H PRN 03/07/21 03/07/21 History Inhaler] Amiodarone HCl [Pacerone] 100 mg PO DAILY 03/07/21 03/07/21 History Atorvastatin [Lipitor] 80 mg PO HS 03/07/21 03/07/21 History Famotidine [Pepcid] 20 mg PO DAILY PRN 03/07/21 03/07/21 History Fluticasone Propion/Salmeterol 1 puff INHALATION RT-BID 03/07/21 03/07/21 History [Fluticasone-Salmeterol 250-50] Furosemide [Lasix] 40 mg PO BID 03/07/21 03/07/21 History Tiotropium 2.5 Mcg/Puff [Spiriva 1 puff INHALATION RT-HS 03/07/21 03/07/21 Histo ry Respimat 2.5 Mcg] Warfarin [Coumadin] 2.5 mg PO SUMOWEFRSA@209903/07/21 03/07/21 History Warfarin [Coumadin] 3.75 mg PO TUTH@209903/07/21 03/07/21 History Allergies Allergy/AdvReac Type Severity Reaction Status Date / Time [id number]-OVM-GvP Reductase Allergy Mild Rash/Hives Verified 03/07/21 16:06 Inhibitor [Helqkai-Edj-Xqv Reductase Inhibitor] Physical Exam Vitals: Vital Signs Temp Pulse Pulse Resp BP BP BP 03/08/21 16:11 84 03/08/21 15:04 64 18 03/08/21 15:00 98 F 64 16 135/65 03/08/21 14:45 98.1 F 64 19 135/65 03/08/21 12:15 88 03/08/21 12:07 85 03/08/21 08:52 82 03/08/21 08:43 79 03/08/21 08:00 18 03/08/21 07:04 97.6 F 60 17 128/64 03/08/21 02:41 97.8 F 71 18 132/52 03/08/21 01:24 98.8 F 68 16 119/61 03/07/21 20:23 88 03/07/21 20:16 87 03/07/21 17:59 20 03/07/21 17:40 65 18 119/51 03/07/21 17:24 64 03/07/21 17:15 64 Pulse Ox 03/08/21 16:11 03/08/21 15:04 03/08/21 15:00 97 03/08/21 14:45 97 03/08/21 12:15 03/08/21 12:07 03/08/21 08:52 03/08/21 08:43 03/08/21 08:00 03/08/21 07:04 97 03/08/21 02:41 97 03/08/21 01:24 93 L 03/07/21 20:23 03/07/21 20:16 03/07/21 17:59 03/07/21 17:40 98 03/07/21 17:24 03/07/21 17:15 Intake and Output 03/08/21 03/08/21 03/08/21 06:59 14:59 22:59 Intake Total 500 180 Balance 500 180 Intake: Oral 500 180 Other: Voiding Method Toilet # Voids 1 6 # Bowel Movements 1 Weight 113.398 kg Head exam was generally normal. There was no scleral icterus or corneal arcus. Mucous membranes were moist.Neck was supple and without jugular venous distension, thyromegaly, or carotid bruits. Carotids were easily palpable bilaterally. There was no adenopathy. There is crowding of the posterior oropharynx and a Mallampati class IV. Lung sounds are diminished especially in the lung bases along with some few crackles and the patient has polyester expiratory phase of breathing and scattered expiratory wheezes throughout the lung robles.Cardiac exam revealed the PMI to be normally situated and sized. The rhythm was regular and no extrasystoles were noted during several minutes of auscultation. The first and second heart sounds were normal and physiologic splitting of the second heart sound was noted. There were no murmurs, rubs, clicks, or gallops.Abdominal exam revealed normal bowel sounds. The abdomen was soft, non-tender, and without masses, organomegaly, or appreciable enlargement of the abdominal aorta. Patient is obese and CANNOT be accurately palpated at this point.Examination of the extremities revealed easily palpable radial, femoral and pedal pulses. There was no cyanosis, clubbing or edema. Results - Laboratory Findings CBC and BMP: 03/08/21 06:08 03/08/21 06:08 PT/INR, D-dimer PT 25.4 sec (9.9-11.9) H 03/08/21 06:08 INR 2.41 (0.90-1.11) H 03/08/21 06:08 Abnormal lab findings: Abnormal Labs 03/07/21 03/07/21 03/07/21 14:36 14:36 14:36 RBC 3.53 L Hgb 11.6 L Hct 34.8 L MCV MCH MCHC RDW Lymphocytes # Eosinophils # PT 26.8 H INR 2.8 H APTT 37.4 H Potassium Carbon Dioxide 32 H BUN 38 H BUN/Creatinine Ratio Glucose 106 H Albumin 3.3 L 03/08/21 03/08/21 03/08/21 06:08 06:08 06:08 RBC 3.46 L Hgb 11.1 L Hct 35.4 L MCV 102.3 H MCH 32.1 H MCHC 31.4 L RDW 14.6 H Lymphocytes # 0.69 L Eosinophils # 0 L PT 25.4 H INR 2.41 H APTT Potassium 6.1 H* Carbon Dioxide 29.5 H BUN 31.9 H BUN/Creatinine Ratio 30.97 H Glucose 142 H Albumin - Diagnostic Findings Chest x-ray: image reviewed Assessment and Plan Plan: 1 acute COPD exacerbation with limited bilateral lower lobe pneumonia and secondary shortness of breath. 2 advanced COPD oxygen dependent and the patient's FEV1 is in the order of 46% of predicted 3 acute on chronic hypoxic respiratory failure, the patient's baseline option requirements is are 2 L 4 chronic atrial fibrillation, and the patient is maintained on amiodarone and long-term articulation with warfarin and his PT/INR is therapeutic for now 5 history of valvular heart disease and the patient has undergone a previous aortic valve replacement for aortic stenosis, the patient undergone a previous TAVR procedure 6 history of prostate cancer 7 hyperlipidemia 8 coronary artery disease with insertion of coronary stent on multiple occasions involving stenting of the RCA 9 osteoarthritis 10 obstructive sleep apnea. 11 peripheral vascular disease, along with previous vascular intervention is involving the lower extremities 12 history of congestion heart failure with impaired systolic function of ejection fraction of 35% 13 carotid artery stenosis, with a previous endarterectomy on the left 14. History of kidney stones 15 umbilical hernia, post repair 16 hyperkalemia, repeat K levels and stop the DEYSI inhibitor that the potassium level continues to be elevated Plan Cover the patient with accommodation Rocephin and Zithromax Check pro calcitonin level Cover the patient with DuoNeb nebulized treatments around the clock IV Solu Medrol 40 mg every 6 hours Oxygen therapy at 3 L per minute nasal cannula for now Echocardiogram to evaluate the rest valvular function as the patient has undergone previous TAVR are procedure and the patient has also history of congestion heart failure with systolic dysfunction Continue anticoagulation with warfarin and monitor the patient's PT/INR Lasix 40 mg IV every 12 hours over the next 24 hours
[2021-03-08 18:04] LABS: African American GFR (CKD) >90 (>60 ml/min/1.73 sqM); Anion Gap 8 mmol/L; Blood Urea Nitrogen 33 mg/dL (9-20); Calcium 9.1 mg/dL (8.4-10.2); Carbon Dioxide 31 mmol/L (22-30); Chloride 97 mmol/L (98-107); Glucose 157 mg/dL (74-99); Non-African American GFR(CKD) 81 (>60 ml/min/1.73 sqM); Potassium 4.8 mmol/L (3.5-5.1); Sodium 136 mmol/L (137-145)
[2021-03-08] MEDS: AZITHROMYCIN 500 MG TAB PO SCH (18:20)
[2021-03-08] MEDS ORDERED: WARFARIN 2.5 MG TAB PO SCH (21:00)
[2021-03-08] MEDS: CYANOCOBALAMIN 500 MCG TAB PO SCH (21:07)
[2021-03-08] MEDS: MONTELUKAST 10 MG TAB PO SCH (21:07)
[2021-03-08] MEDS: ATORVASTATIN 80 MG TAB PO SCH (21:07)
[2021-03-08] MEDS: FUROSEMIDE 10 MG/ML 4 ML VIAL IV SCH (21:07)
[2021-03-08] MEDS: CYCLOBENZAPRINE 10 MG TAB PO SCH (21:08)
[2021-03-08] MEDS: WARFARIN 2.5 MG TAB PO SCH (21:36)
--- NOTE | 2021-03-08 23:01 | P.HPIM ---
History of Present Illness H&P Date: 03/08/21 Chief Complaint: shortness of breath. Patient is a 76-year-old male with a known history of paroxysmal atrial fibrillation on anticoagulation with Eliquis, advanced COPD, chronic hypoxic respiratory failure on 2 L oxygen via nasal cannula at home, chronic systolic heart failure with ejection fraction 35% and history of aortic valve stenosis with previous history of TAVR, carotid stenosis status post endarterectomy, peripheral vascular disease, chronic back pain, hyperlipidemia, prostate cancer, obstructive sleep apnea, hearing disorder/deafness and previous history of smoking presents to ER with complaints of worsening shortness of breath for the past 3 days. Patient was seen at the urgent care facility and was found to be hypoxic with pulse ox 80% on 3 L oxygen via nasal cannula. Patient is also complaining of slightly increased lower extremity swelling. Does have cough with light yellowish sputum production. Denies any increasing quantity. Patient was sent to ER from urgent care facility. Denied any recent Covid infection. No nausea vomiting or abdominal pain or diarrhea. Patient feels the same as when he was diagnosed with pneumonia couple years ago. Chest x-ray showed showed lower lobe infiltrate likely on the left cardiac region can be compatible with pneumonia. EKG normal sinus rhythm Review of Systems Constitutional: Patient denies any fever or chills . No generalized weakness or weight loss. Abdomen: Patient denied nausea vomiting and diarrhea and abdominal pain. Cardiovascular: Patient denies any chest pain, +short of breath no palpitations. Respiratory:Patient does have cough with sputum production and shortness of breath. Neurologic: Patient denied any numbness or tingling headache. Musculoskeletal: Patient denies any complaints of joint swelling or deformity. Skin: Negative Psychiatric: Negative Endocrine: No heat or cold intolerance. No recent weight gain. Genitourinary: No dysuria or hematuria. All other 14 point ROS negative except the above Past Medical History Past Medical History: Atrial Fibrillation, Asthma, Coronary Artery Disease (CAD), Cancer, COPD, GERD/Reflux, Hearing Disorder / Deafness, Hyperlipidemia, Hypertension, Osteoarthritis (OA), Pneumonia, Prostate Disorder, Sleep Apnea/CPAP/BIPAP, Vascular Disorder Additional Past Medical History / Comment(s): See Dr Rocha's H&P,Prostate cancer-monitoring, see Dr Nguyễn H&P FOR CARDIAC HISTORY , O2 2L PRN AND AT BEDTIME , hiatal hernia, kidney stones, "bad back", past a fib cardiomyopathy aortic stenosi,borderline DIABETIC -DIET CONTROLLED, aortic valve replacment 09/03 History of Any Multi-Drug Resistant Organisms: None Reported Past Surgical History: Ablation, Bladder Surgery, Cholecystectomy, Heart Catheterization With Stent, Hernia Repair, Tonsillectomy Additional Past Surgical History / Comment(s): CARDIOVERSION, MUKESH FEMORAL BYPASS SURGERY, MUKESH.inguinal hernia, UMBILICAL HERNIA REPAIR, surgery for PILONIDAL CYST, mukesh CATARACTS, ARCH/AORTOGRAM, cystoscopy for KIDNEY STONE REMOVAL x 3, LT CAROTID ENDARTECTOMY. BRAYDEN 05/10/17, 06/06, 06/04/19, 2 stents to the RCA Past Anesthesia/Blood Transfusion Reactions: No Reported Reaction Date of Last Stent Placement:: 06/06/18 Past Psychological History: No Psychological Hx Reported Smoking Status: Former smoker Past Alcohol Use History: Daily Additional Past Alcohol Use History / Comment(s): QUIT SMOKING 1991, SMOKED SINCE AGE 17(2). SMOKED 1-3 PPD DRINKS 1-2 BEER A DAY Past Drug Use History: None Reported - Past Family History Father Family Medical History: Liver Disease Mother Family Medical History: No Reported History Additional Family Medical History / Comment(s): . Medications and Allergies Home Medications Medication Instructions Recorded Confirmed Type Montelukast [Singulair] 10 mg PO HS 09/09/13 03/07/21 History Tamsulosin [Flomax] 0.4 mg PO HS 09/09/13 03/07/21 History Fluticasone Nasal [place] [Flonase 1 spr EA NOSTRIL BID 08/07/16 03/07/21 History Nasal [place]] Loratadine [Claritin] 10 mg PO DAILY 08/07/16 03/07/21 History Solifenacin Succinate [Vesicare] 5 mg PO DAILY 05/02/17 03/07/21 History Aspirin EC [Ecotrin Low Dose] 81 mg PO DAILY 09/12/17 03/07/21 History Esomeprazole Magnesium [NexIUM] 40 mg PO DAILY 10/03/19 03/07/21 History Magnesium 250 mg PO BID 10/03/19 03/07/21 History Potassium Chloride [Potassium 10 meq PO BID 10/03/19 03/07/21 History Chloride ER] cycloSPORINE [Restasis] 1 drop BOTH EYES BID 01/15/20 03/07/21 History Nitroglycerin Sl Tabs [Nitrostat] 0.4 mg SL Q5M PRN 04/16/20 03/07/21 History allopurinoL [Zyloprim] 300 mg PO DAILY 04/16/20 03/07/21 History Ascorbic Acid [Vitamin C] 1,000 mg PO DAILY 06/02/20 03/07/21 History Cholecalciferol [Vitamin D3 (25 25 mcg PO DAILY 06/02/20 03/07/21 History Mcg = 1000 Iu)] Cyanocobalamin (Vitamin B-12) 2,500 mcg PO HS 06/02/20 03/07/21 History [Vitamin B-12] Cyclobenzaprine [Flexeril] 5 mg PO HS 06/02/20 03/07/21 History Docusate [Colace] 100 mg PO BID 06/02/20 03/07/21 History Metoprolol Succinate (ER) [Toprol 100 mg PO DAILY 01/07/21 03/07/21 History XL] lisinopriL [Zestril] 2.5 mg PO HS 01/11/21 03/07/21 History Albuterol Inhaler [Ventolin Hfa 2 puff INHALATION RT-Q4H PRN 03/07/21 03/07/21 History Inhaler] Amiodarone HCl [Pacerone] 100 mg PO DAILY 03/07/21 03/07/21 History Atorvastatin [Lipitor] 80 mg PO HS 03/07/21 03/07/21 History Famotidine [Pepcid] 20 mg PO DAILY PRN 03/07/21 03/07/21 History Fluticasone Propion/Salmeterol 1 puff INHALATION RT-BID 03/07/21 03/07/21 History [Fluticasone-Salmeterol 250-50] Furosemide [Lasix] 40 mg PO BID 03/07/21 03/07/21 History Tiotropium 2.5 Mcg/Puff [Spiriva 1 puff INHALATION RT-HS 03/07/21 03/07/21 History Respimat 2.5 Mcg] Warfarin [Coumadin] 2.5 mg PO SUMOWEFRSA@209903/07/21 03/07/21 History Warfarin [Coumadin] 3.75 mg PO TUTH@209903/07/21 03/07/21 History Allergies Allergy/AdvReac Type Severity Reaction Status Date / Time [id number]-[id number]-WkH Reductase Allergy Mild Rash/Hives Verified 03/07/21 16:06 Inhibitor [Twkqdtg-Wwx-Tpf Reductase Inhibitor] Physical Exam Vitals: Vital Signs Temp Pulse Pulse Resp BP BP BP 03/08/21 08:52 82 03/08/21 08:43 79 03/08/21 07:04 97.6 F 60 17 128/64 03/08/21 02:41 97.8 F 71 18 132/52 03/08/21 01:24 98.8 F 68 16 119/61 03/07/21 20:23 88 03/07/21 20:16 87 03/07/21 17:59 20 03/07/21 17:40 65 18 119/51 03/07/21 17:24 64 03/07/21 17:15 64 03/07/21 16:20 67 20 121/58 03/07/21 13:51 99.8 F H 74 18 120/77 Pulse Ox 03/08/21 08:52 03/08/21 08:43 03/08/21 07:04 97 03/08/21 02:41 97 03/08/21 01:24 93 L 03/07/21 20:23 03/07/21 20:16 03/07/21 17:59 03/07/21 17:40 98 03/07/21 17:24 03/07/21 17:15 03/07/21 16:20 98 03/07/21 13:51 96 Intake and Output 03/07/21 03/08/21 03/08/21 22:59 06:59 14:59 Intake Total 500 180 Balance 500 180 Intake: Oral 500 180 Other: # Voids 1 # Bowel Movements 1 Weight 113.398 kg PHYSICAL EXAMINATION: Patient is lying in the bed comfortably, no acute distress, awake alert and oriented.. HEENT: Normocephalic. Neck is supple. Pupils reactive. Nostrils clear. Oral cavity is moist. Neck reveals no JVD, carotid bruits, or thyromegaly. CHEST EXAMINATION: Trachea is central. Symmetrical expansion. Bibasilar diminished sounds. Scattered rhonchi.. CARDIAC: Normal S1, S2 with no gallops. No murmurs ABDOMEN: Soft. Bowel sounds normal. No organomegaly. No abdominal bruits. Extremities: 2+ edema. No clubbing or cyanosis Neurologically awake, alert, oriented x3 with well-coordinated movements. No focal deficits noted Skin: No rash or skin lesions. Psychiatric: Cooperative. Nonsuicidal Musculoskeletal: No joint swelling or deformity. Normal range of motion. Results CBC & Chem 7: 03/08/21 06:08 03/08/21 17:13 Labs: Abnormal Lab Results - Last 24 Hours (Table) 03/07/21 03/07/21 03/07/21 Range/Units 14:36 14:36 14:36 RBC 3.53 L (4.30-5.90) m/uL Hgb 11.6 L (13.0-17.5) gm/dL Hct 34.8 L (39.0-53.0) % MCV (80.0-97.0) fL MCH (27.0-32.0) pg MCHC (32.0-37.0) g/dL RDW (11.5-14.5) % Lymphocytes # (0.90-5.00) X 10*3/uL Eosinophils # (0.04-0.35) X 10*3/uL PT 26.8 H (9.0-12.0) sec INR 2.8 H (<1.2) APTT 37.4 H (22.0-30.0) sec Carbon Dioxide 32 H (22-30) mmol/L BUN 38 H (9-20) mg/dL Glucose 106 H (74-99) mg/dL Albumin 3.3 L (3.5-5.0) g/dL 03/08/21 03/08/21 Range/Units 06:08 06:08 RBC 3.46 L (4.30-5.90) m/uL Hgb 11.1 L (13.0-17.5) gm/dL Hct 35.4 L (39.0-53.0) % MCV 102.3 H (80.0-97.0) fL MCH 32.1 H (27.0-32.0) pg MCHC 31.4 L (32.0-37.0) g/dL RDW 14.6 H (11.5-14.5) % Lymphocytes # 0.69 L (0.90-5.00) X 10*3/uL Eosinophils # 0 L (0.04-0.35) X 10*3/uL PT 25.4 H (9.0-12.0) sec INR 2.41 H (<1.2) APTT (22.0-30.0) sec Carbon Dioxide (22-30) mmol/L BUN (9-20) mg/dL Glucose (74-99) mg/dL Albumin (3.5-5.0) g/dL Thrombosis Risk Factor Assmnt - DVT/VTE Prophylaxis DVT/VTE Prophylaxis: Pharmacologic Prophylaxis ordered Assessment and Plan Assessment: Shortness of breath secondary to acute COPD exacerbation Possible left lower lobe pneumonia low suspicion. Chronic CHF with systolic dysfunction ejection fraction 35% Acute on chronic hypoxic respiratory failure secondary to COPD exacerbation. Paroxysmal atrial fibrillation on anticoagulation with Coumadin History of valvular heart disease trace post TAVR Coronary artery disease history of stent placement multiple times. History of prostate cancer Obstructive sleep apnea Osteoarthritis Peripheral vascular disease with history of stent placement History of left carotid endarterectomy Nephrolithiasis Coumadin monitoring Plan: Patient be continued on oxygen supplementation and IV steroids Solu-Medrol 40 mg every 6 hourly and duo nebs and Symbicort. Patient was given D50/regular insulin IV due to hyperkalemia. Potassium supplementation has been discontinued. Continue with IV Lasix due to bilateral lower extremity swelling which is chronic but slightly increased recently. Continue with antibiotics in the form of azithromycin and ceftriaxone and procalcitonin level was ordered. Pulmonary was consulted. Continue to follow closely. oxygen titration down to 2 L as per his baseline. Prognosis is guarded at this time. Time with Patient: Greater than 30
[2021-03-09] MEDS: methylPREDNISolone SOD SUCCI 40 MG/ML 1 ML VIAL IV SCH ×4 (00:54→17:36)
[2021-03-09] MEDS: TROSPIUM CHLORIDE 20 MG TABLET PO SCH (08:13)
[2021-03-09] MEDS: cycloSPORINE 0.05% OPHTH 0.4 ML DROPERETTE BOTH EYES SCH ×2 (08:13→22:02)
[2021-03-09] MEDS: DOCUSATE 100 MG CAP PO SCH ×2 (08:13→20:26)
[2021-03-09] MEDS: PANTOPRAZOLE 40 MG TABLET PO SCH (08:13)
[2021-03-09] MEDS: ASPIRIN 81 MG PO SCH (08:13)
[2021-03-09] MEDS: ASCORBIC ACID 500 MG TAB PO SCH (08:13)
[2021-03-09] MEDS: METOPROLOL SUCCINATE (ER) 100 MG TAB.ER.24H PO SCH (08:13)
[2021-03-09] MEDS: AMIODARONE 200 MG TAB PO SCH (08:14)
[2021-03-09] MEDS: allopurinoL 300 MG TAB PO SCH (08:14)
[2021-03-09] MEDS: MAGNESIUM OXIDE 400 MG TAB PO SCH ×2 (08:14→20:26)
[2021-03-09] MEDS: LORATADINE 10 MG TAB PO SCH (08:15)
[2021-03-09] MEDS: FUROSEMIDE 10 MG/ML 4 ML VIAL IV SCH ×2 (08:16→20:27)
[2021-03-09] MEDS: FLUTICASONE 50MCG/SPRAY NASAL 16GM EA NOSTRIL SCH ×2 (08:20→22:03)
[2021-03-09] MEDS: SYMBICORT 80-4.5 MCG INHALER INHALATION SCH ×2 (08:38→20:39)
[2021-03-09] MEDS: IPRATROPIUM-ALBUTEROL 3 ML NEB INHALATION SCH ×4 (08:38→20:39)
[2021-03-09] MEDS: IPRATROPIUM 0.5 MG/2.5 ML NEBU INHALATION SCH ×4 (10:07→17:41)
[2021-03-09] MEDS: CHOLECALCIFEROL 25 MCG (1000 IU) TABLET PO SCH (10:08)
[2021-03-09 11:37] LABS: Basophils # (A) 0.01 X 10*3/uL (0.00-0.10); Basophils % (A) 0.1 %; Eosinophils # (A) 0 X 10*3/uL (0.04-0.35); Eosinophils % (A) 0 %; HCT 37.5 % (39.6-50.0); HGB 11.6 g/dL (13.0-17.0); Lymphocytes # (A) 0.98 X 10*3/uL (0.90-5.00); Lymphocytes % (A) 8.3 %; MCH 31.5 pg (27.0-32.0); MCHC 30.9 g/dL (32.0-37.0); MCV 101.9 fL (80.0-97.0); Mean Platelet Volume 10.3 fL (9.5-12.2); Monocytes # (A) 0.46 X 10*3/uL (0.20-1.00); Monocytes % (A) 3.9 %; Neutrophils # (A) 10.25 X 10*3/uL (1.80-7.70); Neutrophils % (A) 87.3 %; Platelet Count 211 X 10*3/uL (140-440); RBC 3.68 X 10*6/uL (4.40-5.60); RDW 14.4 % (11.5-14.5); WBC 11.75 X 10*3/uL (4.50-10.00)
[2021-03-09 11:40] LABS: INR 2.22 (0.90-1.11); Prothrombin Time 23.5 sec (9.9-11.9)
[2021-03-09 11:56] LABS: BUN/Creat Ratio 31.23 Ratio (12.00-20.00)
[2021-03-09 11:57] LABS: African American GFR (CKD) 79.2 (60.0-200.0); Anion Gap 13.4 mmol/L (10.00-18.00); Blood Urea Nitrogen 33.1 mg/dL (9.0-27.0); Calcium 9.6 mg/dL (8.7-10.3); Non-African American GFR(CKD) 68.3 (60.0-200.0); Potassium 5.2 mmol/L (3.5-5.5)
--- NOTE | 2021-03-09 12:08 | P.PN ---
Subjective Progress Note Date: 03/09/21 76-year-old male patient with oxygen-dependent COPD maintained on oxygen at 2 L per minute nasal cannula. The patient presented to the hospital because of worsening shortness of breath a few days duration. The patient reported chronic nonproductive cough. No reported chest pain. He had exertional dyspnea. He had no exposure to COVID 19. He has been vaccinated to COVID 19. He initially presented to an urgent care and following that he was directed to the emergency as the patient was hypoxic in the pulse ox was dropping in the low 80s while him being on oxygen. He last bout of pneumonia was several years back. The patient has been maintained on oxygen in addition to Spiriva and Advair on outpatient basis and the patient has utilize albuterol neb last treatment updrafts on an as-needed basis. He has chronic atrial fibrillation. Is on amiodarone. He also utilizes warfarin for long-term anticoagulants. In the emergency department, the patient was found to be afebrile. The patient had a COVID 19 testing that came back negative. Troponins were negative. INR was therapeutic at 2.8. Chest x-ray showed lower lobe pulmonary infiltrate consistent with pneumonia. He was placed on 3 L of oxygen and saturation improved and currently is up to 90%. Blood cultures were sent. Patient was started on bronchodilators, IV Solu Medrol and antibiotics. Patient was hospitalized accordingly. The white cell count is at 7.8. Sodium is at 137 with a creatinine of 1.1. Troponin is been negative. EKG was sinus rhythm. Noted the patient has advanced COPD. His FEV1 is the order of 46% of predicted based on spirometry was done and 2017. He has also history of prostate cancer. He has h ypertension, congestion heart failure, and chronic atrial fibrillation. The patient is seen today 03/09/2021 in follow-up on the regular medical floor. He is currently sitting up in a chair at the bedside. Awake and alert in no acute distress. Breathing quite a bit better today compared to yesterday. Not quite back to his baseline. In taking good O2 saturations in the mid 90s on 2 L/m per nasal cannula. He's been afebrile. Hemodynamically stable. White count 11.7. Hemoglobin 11.6. INR 2.22. Sodium 140. Potassium 5.2. Creatinine 1.1. Mata virus by PCR not detected. Pro-calcitonin 0.05. He is continued on DuoNeb inhalations, Symbicort, including failure, IV Solu-Medrol. Objective - Vital Signs Vital signs: Vital Signs Temp 97.4 F L 03/09/21 07:00 Pulse 62 03/09/21 08:54 Resp 22 03/09/21 08:00 BP 123/77 03/09/21 07:00 Pulse Ox 96 03/09/21 08:41 Intake & Output 03/08/21 03/09/21 03/09/21 18:59 06:59 18:59 Intake Total 180 500 222 Balance 180 500 222 Intake: Oral 180 500 222 Other: Voiding Method Toilet Toilet # Voids 6 2 - Exam GENERAL EXAM: Alert, doesn't 76-year-old gentleman, up in a chair at the bedside, on 2 L nasal cannula, comfortable in no apparent distress. HEAD: Normocephalic. EYES: Normal reaction of pupils, equal size. NOSE: Clear with pink turbinates. THROAT: No erythema or exudates. NECK: No masses, no JVD. CHEST: No chest wall deformity. LUNGS: Equal air entry with faint end expiratory wheeze, diminished. CVS: S1 and S2 normal with no audible murmur, regular rhythm. ABDOMEN: No hepatosplenomegaly, normal bowel sounds, no guarding or rigidity. SPINE: No scoliosis or deformity SKIN: No rashes CENTRAL NERVOUS SYSTEM: No focal deficits, tone is normal in all 4 extremities. EXTREMITIES: There is no peripheral edema. No clubbing, no cyanosis. Peripheral pulses are intact. - Labs CBC & Chem 7: 03/09/21 06:37 03/09/21 06:37 Labs: Abnormal Lab Results - Last 24 Hours (Table) 03/08/21 03/08/21 03/09/21 Range/Units 06:08 17:13 06:37 WBC (4.50-10.00) X 10*3/uL RBC (4.40-5.60) X 10*6/uL Hgb (13.0-17.0) g/dL Hct (39.6-50.0) % MCV (80.0-97.0) fL MCHC (32.0-37.0) g/dL Immature Gran # (0.00-0.04) X 10*3/uL Neutrophils # (1.80-7.70) X 10*3/uL Eosinophils # (0.04-0.35) X 10*3/uL PT (9.9-11.9) sec INR (0.90-1.11) Sodium 136 L (137-145) mmol/L Potassium 6.1 H* (3.5-5.5) mmol/L Chloride 97 L (98-107) mmol/L Carbon Dioxide 29.5 H 31 H 28.0 H (20.0-27.5) mmol/L BUN 31.9 H 33 H 33.1 H (9.0-27.0) mg/dL BUN/Creatinine Ratio 30.97 H 31.23 H (12.00-20.00) Ratio Glucose 142 H 157 H 149 H (70-110) mg/dL 03/09/21 03/09/21 Range/Units 06:37 06:37 WBC 11.75 H (4.50-10.00) X 10*3/uL RBC 3.68 L (4.40-5.60) X 10*6/uL Hgb 11.6 L (13.0-17.0) g/dL Hct 37.5 L (39.6-50.0) % MCV 101.9 H (80.0-97.0) fL MCHC 30.9 L (32.0-37.0) g/dL Immature Gran # 0.05 H (0.00-0.04) X 10*3/uL Neutrophils # 10.25 H (1.80-7.70) X 10*3/uL Eosinophils # 0 L (0.04-0.35) X 10*3/uL PT 23.5 H (9.9-11.9) sec INR 2.22 H (0.90-1.11) Sodium (137-145) mmol/L Potassium (3.5-5.5) mmol/L Chloride (98-107) mmol/L Carbon Dioxide (20.0-27.5) mmol/L BUN (9.0-27.0) mg/dL BUN/Creatinine Ratio (12.00-20.00) Ratio Glucose (70-110) mg/dL Assessment and Plan Assessment: 1 acute COPD exacerbation with limited bilateral lower lobe pneumonia and secondary shortness of breath. 2 advanced COPD oxygen dependent and the patient's FEV1 is in the order of 46% of predicted 3 acute on chronic hypoxic respiratory failure, the patient's baseline option requirements is are 2 L 4 chronic atrial fibrillation, and the patient is maintained on amiodarone and long-term articulation with warfarin and his PT/INR is therapeutic for now 5 history of valvular heart disease and the patient has undergone a previous aortic valve replacement for aortic stenosis, the patient undergone a previous TAVR procedure 6 history of prostate cancer 7 hyperlipidemia 8 coronary artery disease with insertion of coronary stent on multiple occasions involving stenting of the RCA 9 osteoarthritis 10 obstructive sleep apnea. 11 peripheral vascular disease, along with previous vascular intervention is involving the lower extremities 12 history of congestion heart failure with impaired systolic function of ejection fraction of 35% 13 carotid artery stenosis, with a previous endarterectomy on the left 14. History of kidney stones 15 umbilical hernia, post repair 16 hyperkalemia, repeat K levels and stop the DEYSI inhibitor that the potassium level continues to be elevated Plan The patient was seen and evaluated Stable from the pulmonary standpoint Not quite back to his baseline Continue Symbicort, Singulair, DuoNeb inhalations, IV Cymetra Probable home in the a.m. I, the cosigning physician, performed a history & physical examination of the patient. Lungs sounds bilateral wheeze, diminished. Maintaining good O2 saturations in the 90s on 2 L/m per nasal cannula. I discussed the assessment and plan of care with my nurse practitioner, Miranda Duncan. I attest to the above note as dictated by her.
[2021-03-09] MEDS: AZITHROMYCIN 500 MG TAB PO SCH (17:36)
[2021-03-09] MEDS: CYANOCOBALAMIN 500 MCG TAB PO SCH (20:26)
[2021-03-09] MEDS: ATORVASTATIN 80 MG TAB PO SCH (20:26)
[2021-03-09] MEDS: CYCLOBENZAPRINE 10 MG TAB PO SCH (20:27)
[2021-03-09] MEDS: MONTELUKAST 10 MG TAB PO SCH (22:02)
[2021-03-09] MEDS: TAMSULOSIN 0.4 MG CAP.ER.24H PO SCH (22:02)
--- NOTE | 2021-03-09 22:27 | P.PN ---
Subjective Progress Note Date: 03/09/21 Principal diagnosis: Acute COPD exacerbation Patient is a 76-year-old male with a known history of paroxysmal atrial fibrillation on anticoagulation with Eliquis, advanced COPD, chronic hypoxic respiratory failure on 2 L oxygen via nasal cannula at home, chronic systolic heart failure with ejection fraction 35% and history of aortic valve stenosis with previous history of TAVR, carotid stenosis status post endarterectomy, peripheral vascular disease, chronic back pain, hyperlipidemia, prostate cancer, obstructive sleep apnea, hearing disorder/deafness and previous history of smoking presents to ER with complaints of worsening shortness of breath for the past 3 days. Patient was seen at the urgent care facility and was found to be hypoxic with pulse ox 80% on 3 L oxygen via nasal cannula. Patient is also complaining of slightly increased lower extremity swelling. Does have cough with light yellowish sputum production. Denies any increasing quantity. Patient was sent to ER from urgent care facility. Denied any recent Covid infection. No nausea vomiting or abdominal pain or diarrhea. Patient feels the same as when he was diagnosed with pneumonia couple years ago. Chest x-ray showed showed lower lobe infiltrate likely on the left cardiac region can be compatible with pneumonia. EKG normal sinus rhythm 03/09/2021 Patient is currently sitting in the chair. Patient states that his breathing is better today. Still having exertional dyspnea and wheezing on examination but improved air entry compared to yesterday. Currently requiring oxygen at 2 L via nasal cannula as per home regimen. Patient has been afebrile. Denies any complaints of chest pain. Leg swelling is also improving. Lasix will be changed back to by mouth. Patient is already IV methylprednisolone and duo nebs and antibiotics empirically. Pulmonary is on board. Current medications reviewed. Objective - Vital Signs Vital signs: Vital Signs Temp 97.6 F 03/09/21 20:00 Pulse 68 03/09/21 20:51 Resp 14 03/09/21 20:00 BP 118/65 03/09/21 20:00 Pulse Ox 96 03/09/21 20:00 Intake & Output 03/09/21 03/09/21 03/10/21 06:59 18:59 06:59 Intake Total 500 458 Balance 500 458 Intake: Oral 500 458 Other: Voiding Method Toilet # Voids 2 5 - Exam PHYSICAL EXAMINATION: Patient is lying in the bed comfortably, no acute distress, awake alert and oriented.. HEENT: Normocephalic. Neck is supple. Pupils reactive. Nostrils clear. Oral cavity is moist. Neck reveals no JVD, carotid bruits, or thyromegaly. CHEST EXAMINATION: Trachea is central. Symmetrical expansion. Patient does have expiratory wheezing and left basilar crackles. No rhonchi. Nonlabored breathing.. CARDIAC: Normal S1, S2 with no gallops. No murmurs ABDOMEN: Soft. Bowel sounds normal. No organomegaly. No abdominal bruits. Extremities: 2+ edema. No clubbing or cyanosis Neurologically awake, alert, oriented x3 with well-coordinated movements. No fo rajesh deficits noted Skin: No rash or skin lesions. Psychiatric: Cooperative. Nonsuicidal Musculoskeletal: No joint swelling or deformity. Normal range of motion. - Labs CBC & Chem 7: 03/09/21 06:37 03/09/21 06:37 Labs: Abnormal Lab Results - Last 24 Hours (Table) 03/09/21 03/09/21 03/09/21 Range/Units 06:37 06:37 06:37 WBC 11.75 H (4.50-10.00) X 10*3/uL RBC 3.68 L (4.40-5.60) X 10*6/uL Hgb 11.6 L (13.0-17.0) g/dL Hct 37.5 L (39.6-50.0) % MCV 101.9 H (80.0-97.0) fL MCHC 30.9 L (32.0-37.0) g/dL Immature Gran # 0.05 H (0.00-0.04) X 10*3/uL Neutrophils # 10.25 H (1.80-7.70) X 10*3/uL Eosinophils # 0 L (0.04-0.35) X 10*3/uL PT 23.5 H (9.9-11.9) sec INR 2.22 H (0.90-1.11) Carbon Dioxide 28.0 H (20.0-27.5) mmol/L BUN 33.1 H (9.0-27.0) mg/dL BUN/Creatinine Ratio 31.23 H (12.00-20.00) Ratio Glucose 149 H (70-110) mg/dL Microbiology - Last 24 Hours (Table) 03/09/21 08:45 Sputum Culture - Preliminary Sputum Assessment and Plan Assessment: Shortness of breath secondary to acute COPD exacerbation Possible left lower lobe pneumonia low suspicion. Chronic CHF with systolic dysfunction ejection fraction 35% Acute on chronic hypoxic respiratory failure secondary to COPD exacerbation. Hyperkalemia. resolved. Paroxysmal atrial fibrillation on anticoagulation with Coumadin History of valvular heart disease trace post TAVR Coronary artery disease history of stent placement multiple times. History of prostate cancer Obstructive sleep apnea Osteoarthritis Peripheral vascular disease with history of stent placement History of left carotid endarterectomy Nephrolithiasis Coumadin monitoring Plan: Patient be continued on oxygen supplementation and IV steroids Solu-Medrol 40 mg every 6 hourly and duo nebs and Symbicort. Patient was given D50/regular insulin IV due to hyperkalemia. Potassium supplementation has been discontinu ed. Continue with IV Lasix due to bilateral lower extremity swelling which is chronic but slightly increased recently.Changed to by mouth. Continue with antibiotics in the form of azithromycin and ceftriaxone and procalcitonin level was is not eleavted . Pulmonary is on board. Continue to follow closely. oxygen titration down to 2 L as per his baseline. Prognosis is guarded at this time. Time with Patient: Greater than 30
[2021-03-10] MEDS: WARFARIN 2.5 MG TAB PO SCH (00:14)
[2021-03-10] MEDS: IPRATROPIUM 0.5 MG/2.5 ML NEBU INHALATION SCH ×2 (00:15→10:17)
[2021-03-10] MEDS: methylPREDNISolone SOD SUCCI 40 MG/ML 1 ML VIAL IV SCH ×3 (00:34→12:20)
[2021-03-10] MEDS: FLUTICASONE 50MCG/SPRAY NASAL 16GM EA NOSTRIL SCH (07:43)
[2021-03-10] MEDS: ASCORBIC ACID 500 MG TAB PO SCH (07:43)
[2021-03-10] MEDS: CHOLECALCIFEROL 25 MCG (1000 IU) TABLET PO SCH (07:43)
[2021-03-10] MEDS: AMIODARONE 200 MG TAB PO SCH (07:43)
[2021-03-10] MEDS: LORATADINE 10 MG TAB PO SCH (07:43)
[2021-03-10] MEDS: FUROSEMIDE 40 MG TAB PO SCH ×2 (07:44→15:59)
[2021-03-10] MEDS: METOPROLOL SUCCINATE (ER) 100 MG TAB.ER.24H PO SCH (07:44)
[2021-03-10] MEDS: TROSPIUM CHLORIDE 20 MG TABLET PO SCH (07:44)
[2021-03-10] MEDS: MAGNESIUM OXIDE 400 MG TAB PO SCH (07:44)
[2021-03-10] MEDS: PANTOPRAZOLE 40 MG TABLET PO SCH (07:45)
[2021-03-10] MEDS: DOCUSATE 100 MG CAP PO SCH (07:45)
[2021-03-10] MEDS: ASPIRIN 81 MG PO SCH (07:45)
[2021-03-10] MEDS: AZITHROMYCIN 500 MG TAB PO SCH (07:45)
[2021-03-10] MEDS: cycloSPORINE 0.05% OPHTH 0.4 ML DROPERETTE BOTH EYES SCH (07:46)
[2021-03-10] MEDS: allopurinoL 300 MG TAB PO SCH (07:46)
[2021-03-10] MEDS: SYMBICORT 80-4.5 MCG INHALER INHALATION SCH (07:58)
[2021-03-10] MEDS: IPRATROPIUM-ALBUTEROL 3 ML NEB INHALATION SCH ×3 (07:59→16:35)
[2021-03-10 09:31] LABS: Basophils # (A) 0.01 X 10*3/uL (0.00-0.10); Basophils % (A) 0.1 %; Eosinophils # (A) 0 X 10*3/uL (0.04-0.35); Eosinophils % (A) 0 %; HCT 36.8 % (39.6-50.0); HGB 11.7 g/dL (13.0-17.0); Lymphocytes # (A) 0.76 X 10*3/uL (0.90-5.00); Lymphocytes % (A) 6.1 %; MCH 32.1 pg (27.0-32.0); MCHC 31.8 g/dL (32.0-37.0); MCV 100.8 fL (80.0-97.0); Monocytes # (A) 0.46 X 10*3/uL (0.20-1.00); Monocytes % (A) 3.7 %; Neutrophils # (A) 11.12 X 10*3/uL (1.80-7.70); Neutrophils % (A) 89.4 %; Platelet Count 228 X 10*3/uL (140-440); RBC 3.65 X 10*6/uL (4.40-5.60); RDW 14.4 % (11.5-14.5); WBC 12.44 X 10*3/uL (4.50-10.00)
[2021-03-10 09:51] LABS: African American GFR (CKD) 75.7 (60.0-200.0); Anion Gap 11.3 mmol/L (10.00-18.00); BUN/Creat Ratio 33.82 Ratio (12.00-20.00); Blood Urea Nitrogen 37.2 mg/dL (9.0-27.0); Calcium 9.6 mg/dL (8.7-10.3); Carbon Dioxide 30.7 mmol/L (20.0-27.5); Non-African American GFR(CKD) 65.3 (60.0-200.0); Potassium 4.7 mmol/L (3.5-5.5)
[2021-03-10 10:58] LABS: INR 2.55 (0.90-1.11); Prothrombin Time 26.8 sec (9.9-11.9)
[2021-03-10] MEDS ORDERED: FUROSEMIDE 10 MG/ML 4 ML VIAL IV STA (11:19)
--- NOTE | 2021-03-10 14:15 | P.PN ---
Subjective Progress Note Date: 03/10/21 76-year-old male patient with oxygen-dependent COPD maintained on oxygen at 2 L per minute nasal cannula. The patient presented to the hospital because of worsening shortness of breath a few days duration. The patient reported chronic nonproductive cough. No reported chest pain. He had exertional dyspnea. He had no exposure to COVID 19. He has been vaccinated to COVID 19. He initially presented to an urgent care and following that he was directed to the emergency as the patient was hypoxic in the pulse ox was dropping in the low 80s while him being on oxygen. He last bout of pneumonia was several years back. The patient has been maintained on oxygen in addition to Spiriva and Advair on outpatient basis and the patient has utilize albuterol neb last treatment updrafts on an as-needed basis. He has chronic atrial fibrillation. Is on amiodarone. He also utilizes warfarin for long-term anticoagulants. In the emergency department, the patient was found to be afebrile. The patient had a COVID 19 testing that came back negative. Troponins were negative. INR was therapeutic at 2.8. Chest x-ray showed lower lobe pulmonary infiltrate consistent with pneumonia. He was placed on 3 L of oxygen and saturation improved and currently is up to 90%. Blood cultures were sent. Patient was started on bronchodilators, IV Solu Medrol and antibiotics. Patient was hospitalized accordingly. The white cell count is at 7.8. Sodium is at 137 with a creatinine of 1.1. Troponin is been negative. EKG was sinus rhythm. Noted the patient has advanced COPD. His FEV1 is the order of 46% of predicted based on spirometry was done and 2017. He has also history of prostate cancer. He has h ypertension, congestion heart failure, and chronic atrial fibrillation. The patient is seen today 03/09/2021 in follow-up on the regular medical floor. He is currently sitting up in a chair at the bedside. Awake and alert in no acute distress. Breathing quite a bit better today compared to yesterday. Not quite back to his baseline. In taking good O2 saturations in the mid 90s on 2 L/m per nasal cannula. He's been afebrile. Hemodynamically stable. White count 11.7. Hemoglobin 11.6. INR 2.22. Sodium 140. Potassium 5.2. Creatinine 1.1. Mata virus by PCR not detected. Pro-calcitonin 0.05. He is continued on DuoNeb inhalations, Symbicort, including failure, IV Solu-Medrol. The patient is seen today 03/10/2021 in follow-up on the regular medical floor. He is awake and alert in no acute distress. Sitting up in a chair at the bedside fairly. Feeling back to his baseline. No worsening shortness of breath, cough or congestion. His been maintained on rhonchi dilators, ant ibiotics, IV Solu-Medrol. Anticoagulated with warfarin. white count 12.4. Hemoglobin 11.7. INR 2.55. Sodium 137. Potassium 4.7. Creatinine 1.1. Glucose 146. Objective - Vital Signs Vital signs: Vital Signs Temp 97.5 F L 03/10/21 07:00 Pulse 72 03/10/21 11:29 Resp 20 03/10/21 07:00 BP 121/64 03/10/21 07:00 Pulse Ox 97 03/10/21 07:00 Intake & Output 03/09/21 03/10/21 03/10/21 18:59 06:59 18:59 Intake Total 458 1500 118 Balance 458 1500 118 Intake: Oral 458 1500 118 Other: Voiding Method Toilet # Voids 5 5 - Exam GENERAL EXAM: Alert, doesn't 76-year-old gentleman, up in a chair at the bedside, on 2 L nasal cannula, comfortable in no apparent distress. HEAD: Normocephalic. EYES: Normal reaction of pupils, equal size. NOSE: Clear with pink turbinates. THROAT: No erythema or exudates. NECK: No masses, no JVD. CHEST: No chest wall deformity. LUNGS: Equal air entry with faint end expiratory wheeze, diminished. CVS: S1 and S2 normal with no audible murmur, regular rhythm. ABDOMEN: No hepatosplenomegaly, normal bowel sounds, no guarding or rigidity. SPINE: No scoliosis or deformity SKIN: No rashes CENTRAL NERVOUS SYSTEM: No focal deficits, tone is normal in all 4 extremities. EXTREMITIES: There is no peripheral edema. No clubbing, no cyanosis. Peripheral pulses are intact. - Labs CBC & Chem 7: 03/10/21 05:25 03/10/21 05:25 Labs: Abnormal Lab Results - Last 24 Hours (Table) 1203/10/21 03/10/21 Range/Units 05:25 05:25 05:25 WBC 12.44 H (4.50-10.00) X 10*3/uL RBC 3.65 L (4.40-5.60) X 10*6/uL Hgb 11.7 L (13.0-17.0) g/dL Hct 36.8 L (39.6-50.0) % MCV 100.8 H (80.0-97.0) fL MCH 32.1 H (27.0-32.0) pg MCHC 31.8 L (32.0-37.0) g/dL Immature Gran # 0.09 H (0.00-0.04) X 10*3/uL Neutrophils # 11.12 H (1.80-7.70) X 10*3/uL Lymphocytes # 0.76 L (0.90-5.00) X 10*3/uL Eosinophils # 0 L (0.04-0.35) X 10*3/uL PT 26.8 H (9.9-11.9) sec INR 2.55 H (0.90-1.11) Chloride 95 L (96-109) mmol/L Carbon Dioxide 30.7 H (20.0-27.5) mmol/L BUN 37.2 H (9.0-27.0) mg/dL BUN/Creatinine Ratio 33.82 H (12.00-20.00) Ratio Glucose 146 H (70-110) mg/dL Microbiology - Last 24 Hours (Table) 03/09/21 08:45 Gram Stain - Preliminary Sputum Sputum Culture - Preliminary Assessment and Plan Assessment: 1 acute COPD exacerbation with limited bilateral lower lobe pneumonia and secondary shortness of breath. 2 advanced COPD oxygen dependent and the patient's FEV1 is in the order of 46% of predicted 3 acute on chronic hypoxic respiratory failure, the patient's baseline option requirements is are 2 L 4 chronic atrial fibrillation, and the patient is maintained on amiodarone and long-term articulation with warfarin and his PT/INR is therapeutic for now 5 history of valvular heart disease and the patient has undergone a previous aortic valve replacement for aortic stenosis, the patient undergone a previous TAVR procedure 6 history of prostate cancer 7 hyperlipidemia 8 coronary artery disease with insertion of coronary stent on multiple occasions involving stenting of the RCA 9 osteoarthritis 10 obstructive sleep apnea. 11 peripheral vascular disease, along with previous vascular intervention is involving the lower extremities 12 history of congestion heart failure with impaired systolic function of ejection fraction of 35% 13 carotid artery stenosis, with a previous endarterectomy on the left 14. History of kidney stones 15 umbilical hernia, post repair 16 hyperkalemia, repeat K levels and stop the DEYSI inhibitor that the potassium level continues to be elevated Plan The patient was seen and evaluated cleared for discharge from the pulmonary standpointt Complete a prednisone taper starting at 40 mg daily for 4 days Continue Symbicort, Singulair, DuoNeb inhalations Follow-up in the office in 1-2 weeks' I, the cosigning physician, performed a history & physical examination of the patient. Lungs sounds bilateral wheeze, diminished. Maintaining good O2 saturations in the 90s on 2 L/m per nasal cannula. I discussed the assessment and plan of care with my nurse practitioner, Miranda Duncan. I attest to the above note as dictated by her.
[2021-03-10 14:41] VITALS: TEMP 97.5
[2021-03-10 16:07] VITALS: BP 138/73
[2021-03-10 16:43] VITALS: RESP 15
[2021-03-10 16:47] VITALS: PULSE 70
== END 2021-03-10 17:21 | disposition home or self-care (01) | DRG 190 ==
LOC: EC 13:49 → 1SOBS 16:54 → 6NMEDSUR 19:37 → OBSVTOIN 03-09 11:50
PROVIDERS: ADMIT Internal Medicine; ATTEND Internal Medicine
PROC: 3E0F7SF Introduction of Other Gas into Respiratory Tract, Via Natural or Artificial Opening (ICD-10-PCS; principal; 2021-03-09)
DX: J44.0 Chronic obstructive pulmonary disease with (acute) lower respiratory infection (principal); J96.21 Acute and chronic respiratory failure with hypoxia; J18.9 Pneumonia, unspecified organism; I42.9 Cardiomyopathy, unspecified; I48.20 Chronic atrial fibrillation, unspecified; I50.22 Chronic systolic (congestive) heart failure; I11.0 Hypertensive heart disease with heart failure; J44.1 Chronic obstructive pulmonary disease with (acute) exacerbation; Z79.01 Long term (current) use of anticoagulants; I48.0 Paroxysmal atrial fibrillation; E87.5 Hyperkalemia; I25.10 Atherosclerotic heart disease of native coronary artery without angina pectoris; Z20.822 Contact with and (suspected) exposure to COVID-19; Z85.46 Personal history of malignant neoplasm of prostate; G47.33 Obstructive sleep apnea (adult) (pediatric); N20.0 Calculus of kidney; M19.90 Unspecified osteoarthritis, unspecified site; I73.9 Peripheral vascular disease, unspecified; Z99.81 Dependence on supplemental oxygen; Z95.2 Presence of prosthetic heart valve; E78.5 Hyperlipidemia, unspecified; H91.90 Unspecified hearing loss, unspecified ear; I65.29 Occlusion and stenosis of unspecified carotid artery; Z79.82 Long term (current) use of aspirin; Z79.899 Other long term (current) drug therapy; Z87.01 Personal history of pneumonia (recurrent); Z87.442 Personal history of urinary calculi; Z87.891 Personal history of nicotine dependence; Z95.5 Presence of coronary angioplasty implant and graft; Z87.19 Personal history of other diseases of the digestive system; Z88.8 Allergy status to other drugs, medicaments and biological substances; Z98.42 Cataract extraction status, left eye; Z98.41 Cataract extraction status, right eye; Z90.49 Acquired absence of other specified parts of digestive tract; Z86.79 Personal history of other diseases of the circulatory system
CPT/HCPCS: 36415; 71046; 80048; 80053; 83605; 83735; 84145; 84484; 85025; 85610; 85730; 87070; 87205; 87635; 93005; 93306; 94640; 94667; 94760; 99285

== ENCOUNTER → 2021-06-01 | Outpatient (CLI) | payer OTHER ==
--- NOTE | 2021-06-02 09:36 | US ---
EXAMINATION TYPE: US carotid duplex BILAT DATE OF EXAM: 06/01/2021 COMPARISON: CT brain. CLINICAL HISTORY: 76-year-old male R42 DIZZINESS. Dizziness. Hx hypertension, hyperlipidemia. Patient states he had surgery on his right carotid artery in the past. Prior smoker. TECHNIQUE: Carotid duplex ultrasound examination. Indirect Doppler criteria was utilized. EXAM MEASUREMENTS: RIGHT: Peak Systolic Velocity (PSV) cm/sec ----- Right CCA: 88.8 ----- Right ICA: 101.7 ----- Right ECA: 157.1 ICA/CCA ratio: 1.1 RIGHT: End Diastole cm/sec ----- Right CCA: 17.6 ----- Right ICA: 28.0 ----- Right ECA: 22.3 LEFT: Peak Systolic Velocity (PSV) cm/sec ----- Left CCA: 79.8 ----- Left ICA: 170.6 ----- Left ECA: 391.7 ICA/CCA ratio: 2.1 LEFT: End Diastole cm/sec ----- Left CCA: 24.8 ----- Left ICA: 32.7 ----- Left ECA: 86.0 VERTEBRALS (direction of flow): Right Vertebral: Antegrade Left Vertebral: Antegrade Rhythm: Normal Toe Laster notes: Elevated velocities noted within right ECA, left ICA, and left ECA. Plaque seen wi thin vessels imaged. Greater amount of plaque seen on the left side. IMPRESSION: Elevated velocities within the left ICA may indicate a moderate (50-69%) left ICA stenosis. Criteria for Assigning % of Stenosis / Diameter reduction (Estimation based on the indirect measurements of the internal carotid artery velocities (ICA PSV). 1. Normal (no stenosis)=ICA PSV < 125 cm/s: ratio < 2.0: ICA EDV<40 cm/s. 2. Less than 50% stenosis=ICA PSV < 125 cm/s: ratio < 2.0: ICA EDV<40 cm/s. 3. 50 to 69% stenosis=ICA PSV of 125 to 230 cm/s: ration 2.0 ? 4.0: ICA EDV 40-100 cm/s. 4. Greater than 70% stenosis to near occlusion= ICA PSV > 230 cm/s: ratio > 4.0: ICA EDV > 100 cm/s. 5. Near occlusion= ICA PSV velocities may be low or undetectable: variable ratio and ICA EDV. 6. Total occlusion=unable to detect flow.
== END | disposition home or self-care (01) ==
LOC: RADUSWWP 15:45
DX: R42 Dizziness and giddiness (principal); Z87.891 Personal history of nicotine dependence; I10 Essential (primary) hypertension; E78.5 Hyperlipidemia, unspecified
CPT/HCPCS: 93880

== ENCOUNTER 2021-12-08 13:29 | Emergency (ER) | payer OTHER ==
[2021-12-08 14:00] VITALS: RESP 18; TEMP 98.1
--- NOTE | 2021-12-08 16:37 | US ---
EXAMINATION TYPE: US venous doppler duplex LE RT DATE OF EXAM: 12/08/2021 2:33 PM COMPARISON: Right lower extremity venous ultrasound 06/20/2020 CLINICAL HISTORY: pain. SIDE PERFORMED: right TECHNIQUE: The lower extremity deep venous system is examined utilizing real time linear array sonog jimmy with graded compression, doppler sonography and color-flow sonography. VESSELS IMAGED: Common Femoral Vein Deep Femoral Vein Greater Saphenous Vein * Femoral Vein Popliteal Vein Small Saphenous Vein * Proximal Calf Veins (* superficial vessels) Grayscale, color doppler, spectral doppler imaging performed of the deep veins of the right lower ext remity. There is normal flow, compressibility, vascular waveforms. Right Leg: Negative for DVT IMPRESSION: No deep venous thrombosis of the right lower extremity.
--- NOTE | 2021-12-08 17:14 | ED ---
Extremity Problem HPI - General Chief complaint: Extremity Problem,Nontraumatic Stated complaint: poss blood clot rt leg Time Seen by Provider: 12/08/21 16:35 Source: patient Mode of arrival: ambulatory Limitations: no limitations - History of Present Illness Initial comments: Patient is a 76-year-old male presenting with chief complaint of right lower leg swelling. Patient states that he hit his leg on his recliner about a week ago, he noticed some increased pain and swelling over the escobar. He is presenting today to rule out the possibility of blood clot. He denies any erythema, warmth, fever, chills, nausea, vomiting, cold extremity, red streaking, limited range of motion, numbness, tingling, weakness, discharge, break in the skin, shortness of breath, chest pain, palpitations, dizziness, hemoptysis. Patient is on warfarin. - Related Data Home Medications Medication Instructions Recorded Confirmed Montelukast [Singulair] 10 mg PO HS 09/09/13 03/07/21 Tamsulosin [Flomax] 0.4 mg PO HS 09/09/13 03/07/21 Fluticasone Nasal [place] [Flonase 1 spr EA NOSTRIL BID 08/07/16 03/07/21 Nasal [place]] Loratadine [Claritin] 10 mg PO DAILY 08/07/16 03/07/21 Solifenacin Succinate [Vesicare] 5 mg PO DAILY 05/02/17 03/07/21 Aspirin EC [Ecotrin Low Dose] 81 mg PO DAILY 09/12/17 03/07/21 Esomeprazole Magnesium [NexIUM] 40 mg PO DAILY 10/03/19 03/07/21 Magnesium 250 mg PO BID 10/03/19 03/07/21 Potassium Chloride [Potassium 10 meq PO BID 10/03/19 03/07/21 Chloride ER] cycloSPORINE [Restasis] 1 drop BOTH EYES BID 01/15/20 03/07/21 Nitroglycerin Sl Tabs [Nitrostat] 0.4 mg SL Q5M PRN 04/16/20 03/07/21 allopurinoL [Zyloprim] 300 mg PO DAILY 04/16/20 03/07/21 Cholecalciferol [Vitamin D3 (25 25 mcg PO DAILY 06/02/20 03/07/21 Mcg = 1000 Iu)] Cyanocobalamin (Vitamin B-12) 2,500 mcg PO HS 06/02/20 03/07/21 [Vitamin B-12] Cyclobenzaprine [Flexeril] 5 mg PO HS 06/02/20 03/07/21 Docusate [Colace] 100 mg PO BID 06/02/20 03/07/21 Metoprolol Succinate (ER) [Toprol 100 mg PO DAILY 01/07/21 03/07/21 XL] lisinopriL [Zestril] 2.5 mg PO HS 01/11/21 03/07/21 Albuterol Inhaler [Ventolin Hfa 2 puff INHALATION RT-Q4H PRN 03/07/21 03/07/21 Inhaler] Amiodarone HCl [Pacerone] 100 mg PO DAILY 03/07/21 03/07/21 Atorvastatin [Lipitor] 80 mg PO HS 03/07/21 03/07/21 Famotidine [Pepcid] 20 mg PO DAILY PRN 03/07/21 03/07/21 Fluticasone Propion/Salmeterol 1 puff INHALATION RT-BID 03/07/21 03/07/21 [Fluticasone-Salmeterol 250-50] Furosemide [Lasix] 40 mg PO BID 03/07/21 03/07/21 Tiotropium 2.5 Mcg/Puff [Spiriva 1 puff INHALATION RT-HS 03/07/21 03/07/21 Respimat 2.5 Mcg] Warfarin [Coumadin] 2.5 mg PO SUMOWEFRSA@209903/07/21 03/07/21 Warfarin [Coumadin] 3.75 mg PO TUTH@209903/07/21 03/07/21 Previous Rx's Medication Instructions Recorded Ipratropium-Albuterol Nebulize 3 ml INHALATION RT-QID PRN #300 ml 03/10/21 [Duoneb 0.5 mg-3 mg/3 ml Soln] predniSONE See Taper PO DIRECTED #30 tab 03/10/21 Allergies Allergy/AdvReac Type Severity Reaction Status Date / Time Argmgef-KCA-WcU Reductase Allergy Mild Rash/Hives Verified 12/08/21 13:59 Inhibitor [Bjkjmzk-Hep-Lnf Reductase Inhibitor] Review of Systems ROS Statement: Those systems with pertinent positive or pertinent negative responses have been documented in the HPI. ROS Other: All systems not noted in ROS Statement are negative. Past Medical History Past Medical History: Atrial Fibrillation, Asthma, Coronary Artery Disease (CAD), Cancer, COPD, GERD/Reflux, Hearing Disorder / Deafness, Hyperlipidemia, Hypertension, Osteoarthritis (OA), Pneumonia, Prostate Disorder, Sleep Apnea/CPAP/BIPAP, Vascular Disorder Additional Past Medical History / Comment(s): See Dr Rocha's H&P,Prostate cancer-monitoring, see Dr Nguyễn H&P FOR CARDIAC HISTORY , O2 2L PRN AND AT BEDTIME , hiatal hernia, kidney stones, "bad back", past a fib cardiomyopathy aortic stenosi,borderline DIABETIC -DIET CONTROLLED, aortic valve replacment 09/03 History of Any Multi-Drug Resistant Organisms: None Reported Past Surgical History: Ablation, Bladder Surgery, Cholecystectomy, Heart Catheterization With Stent, Hernia Repair, Tonsillectomy Additional Past Surgical History / Comment(s): CARDIOVERSION, MUKESH FEMORAL BYPASS SURGERY, MUKESH.inguinal hernia, UMBILICAL HERNIA REPAIR, surgery for PILONIDAL CYST, mukesh CATARACTS, ARCH/AORTOGRAM, cystoscopy for KIDNEY STONE REMOVAL x 3, LT CAROTID ENDARTECTOMY. BRAYDEN 05/10/17, 06/06, 06/04/19, 2 stents to the RCA Past Anesthesia/Blood Transfusion Reactions: No Reported Reaction Date of Last Stent Placement:: 06/06/18 Past Psychological History: No Psychological Hx Reported Smoking Status: Former smoker - Past Family History Father Family Medical History: Liver Disease Mother Family Medical History: No Reported History Additional Family Medical History / Comment(s): . General Exam Limitations: no limitations General appearance: alert, in no apparent distress Head exam: Present: atraumatic, normocephalic, normal inspection Eye exam: Present: normal appearance, EOMI Neck exam: Present: normal inspection Respiratory exam: Present: normal lung sounds bilaterally. Absent: respiratory distress, wheezes, rales, rhonchi, stridor Cardiovascular Exam: Present: regular rate, normal rhythm, normal heart sounds. Absent: systolic murmur, diastolic murmur, rubs, gallop, clicks Right Lower Leg exam: Present: full ROM, tenderness (Over escobar), swelling. Absent: abrasion, erythema Neurovascular tendon exam: Present: no vascular compromise. Absent: motor deficit, sensory deficit Neurological exam: Present: alert, oriented X3, CN II-XII intact Psychiatric exam: Present: normal affect, normal mood Skin exam: Present: warm, dry, intact, normal color. Absent: rash Course Vital Signs 12/08/21 12/08/21 13:57 17:51 Temperature 98.1 F Pulse Rate 69 59 L Respiratory 18 18 Rate Blood Pressure 112/59 120/51 O2 Sat by Pulse 96 Oximetry Medical Decision Making - Medical Decision Making Patient is a 76-year-old male presenting with chief complaint of right lower leg swelling. Patient had injury to the leg about one week ago, there is some tenderness over that area on the escobar. He has full range of motion, good capillary refill, no loss of sensation. Ultrasound shows no evidence of DVT. Patient denies any chest pain, shortness of breath, palpitations. Vital signs are stable. Patient is currently on warfarin. Does not appear cellulitic, no erythema, warmth, discharge, red streaking, fever, chills, discharge. He appears stable for discharge with outpatient follow-up at this time. Follow-up with PCP. Report back to ER with any new or worsening symptoms. Discussed return parameters and answered all questions. Patient conveyed verbal understanding and agreed to the plan. I discussed this case with my attending Dr. Harmon. Disposition Clinical Impression: Hematoma of leg Disposition: HOME SELF-CARE Condition: Good Instructions (If sedation given, give patient instructions): Leg Edema (ED), Hematoma (ED) Additional Instructions: Follow-up with PCP. Report back to ER with any new or worsening symptoms. Is patient prescribed a controlled substance at d/c from ED?: No Referrals: [facility],Clinic [Primary Care Provider] - 1-2 days Time of Disposition: 17:14
[2021-12-08 17:52] VITALS: BP 120/51; PULSE 59
== END 2021-12-08 17:53 | disposition home or self-care (01) ==
LOC: EC 13:29
DX: S80.11XA Contusion of right lower leg, initial encounter (principal); J44.9 Chronic obstructive pulmonary disease, unspecified; I25.10 Atherosclerotic heart disease of native coronary artery without angina pectoris; E78.5 Hyperlipidemia, unspecified; I10 Essential (primary) hypertension; M19.90 Unspecified osteoarthritis, unspecified site; K21.9 Gastro-esophageal reflux disease without esophagitis; Z86.79 Personal history of other diseases of the circulatory system; Z87.891 Personal history of nicotine dependence; Z79.01 Long term (current) use of anticoagulants; Z79.51 Long term (current) use of inhaled steroids; Z79.82 Long term (current) use of aspirin; Z79.899 Other long term (current) drug therapy; Z88.8 Allergy status to other drugs, medicaments and biological substances; W22.03XA Walked into furniture, initial encounter
CPT/HCPCS: 99283